=== PATIENT | female | born 1950 | race Caucasian/White ===

== ENCOUNTER 2016-10-20 19:11 | Emergency (ER) | payer MEDICAID, OTHER ==
[~2016-10-20] VITALS: Ht 167.6 cm; Wt 54.4 kg
[~2016-10-20 19:11] MED LIST: /DIVA12TA; /DIVA50TA PO; /ESCI10TA; /HALO5TAB PO; /OLAN5ZYD OR; ALBU17IN INH; ALBUTEROL INH; ASA OR; ASPI1TAB PO; ASPI325T PO; ASPI81TA45 OR; ASPI81TA85 PO; ASTE137S; AUGMENTIN 875MG PO; BENZ1TA PO; BENZ2TA PO; CHLO25CA PO; CLAR10CA3 PO; CLIN300C PO; CLON0.5T PO; COGE1INJ PO; COGENTIN; Cogentin PO; DEPA250T2 PO; DEPA250T3; DEPA250T32 PO; DEPA500T OR; DEPAKOTE; Depakote PO; HALD100I2 IM; HALDOL; HALDOL PO; HALO10AM IM; HALO10TA PO; HALO10TA4; HALO10TA4 OR; HALO20TA; HALO20TA IM; Haldol PO; INVE3TAB2 OR; KLON0.5T PO; LEXA1TAB PO; LEXAPRO; MIRT15TA3 PO; MONT10TA2 PO; NIAC10TAB PO; PERP4TA PO; PRAZ1CAP PO; PROVENTIL INH; SERO1TAB PO; SERT-141 PO; SING10TA31; SING10TA31 OR; SITA50TAB PO; TRAZ50TA2 PO; TRAZ50TA4 PO; ZOLO50TA PO; ZYPR10TA PO; [UNRECOGNIZED DRUG - OTHER]; astelin; cogentin PO; haldol decanoate IM; januvia PO
[2016-10-21] MEDS ORDERED: BENZTROPINE 1 MG TAB PO ONE (09:45)
[2016-10-21] MEDS ORDERED: clonazePAM 0.5 MG TAB As Ordered ONE (10:46)
--- NOTE | 2016-10-21 13:40 | EDDOCDS ---
Physician Documentation [facility] Name: Samira Varela Age: 65 yrs Sex: Female : 1950 Arrival Date: 10/20/2016 Time: 19:11 Bed OBSERVATION Private MD: Disposition: 10/21/16 11:57 Transfer ordered to [facility]. Diagnosis is Schizophrenia. - Reason for transfer: Higher level of care. - Accepting physician is Dr. Jackson. - Condition is Stable. - Problem is an acute exacerbation. - Symptoms are unchanged. Historical: - Allergies: no known allergies; - Home Meds: 1. Invega Sustenna 234 mg/1.5 mL intramuscular syrg 1.5 mL once moly (Last dose: Unknown) 2. Klonopin 0.5 mg Oral tab 1-2 tabs qd PRN (Last dose: Unknown) 3. Sertraline 50 mg daily (Last dose: Unknown) 4. Cogentin 1 mg Oral tab 1 tab 2 times per day (Last dose: Unknown) - PMHx: Hernia; Bipolar disorder; Migraines; COPD; Hypercholesterolemia; Depression; Schizophrenia; - PSHx: Exploratory lap; Appendectomy; Hernia repair; - Social history: Smoking status: Patient uses tobacco products, light tobacco smoker. No barriers to communication noted, The patient speaks fluent Tunisian. - Family history: Not pertinent. - : The pt / caregiver states he / she is not on anticoagulants. Home medication list is obtained from the patient, the facility MAR. - Exposure Risk Screening:: None identified. Vital Signs: 10/20 19:23 BP 133 / 79; Pulse 76; Resp 20; Temp 97.8(O); Pulse Ox 96% on R/A; Weight 54.43 kg / rw1 120 lbs (R); Height 5 ft. 6 in. (167.64 cm) (R); Pain 0/10; 10/21 06:29 BP 133 / 70; Pulse 85; Resp 20; Temp 97.7(TE); Pulse Ox 95% on R/A; Pain 0/10; rw1 11:10 BP 119 / 76; Pulse 89; Resp 16; Temp 98; Pulse Ox 98% on R/A; Pain 0/10; bcj 13:35 BP 128 / 77; Pulse 80; Resp 16; Temp 98.2(O); Pulse Ox 95% on R/A; Pain 0/10; bcj 10/20 19:23 Body Mass Index 19.37 (54.43 kg, 167.64 cm) rw1 MDM: 10/20 19:29 Consult PFS/PSA/Socail Worker: Cleared medically for eval ordered. cs11 20:36 Consult PFS/PSA/Socail Worker: Cleared medically for eval complete. jfb 20:45 Financial registration complete. gjb 20:50 [facility] Payment Agreement was scanned into [employer] and attached to record. gjb 10/21 04:04 REGULAR DIET PLASTIC WILSON+DIET ordered. EDMS 09:17 Benztropine 1 mg PO once ordered. bcj 10:54 clonazePAM 1 mg PO once ordered. bcj 11:21 REGULAR DIET PLASTIC WILSON+DIET ordered. EDMS 11:52 [facility] Legal paperwork was scanned into [employer] and attached to record. jl 13:37 [facility] Legal paperwork was scanned into [employer] and attached to record. jl Administered Medications: 10:09 Drug: Benztropine 1 mg [benztropine 1 mg tablet (1 tabs)] Route: PO; bcj 13:39 Not Given (Patient Refused): clonazePAM 1 mg PO once jo3 Signatures: Dispatcher [employer] EDIL Izzy Mora MD MD sdChinmay Jones, RN RN Tristan Méndez, DIEGO PSA Bia Antonio,RN RN jo3 Chepe Silva LPN LPN rw1 Kalpesh Alexandra, RN RN Shalonda Rai PSA PSA Avery Finney DO DO cs11 Kalpesh Montana,RN RN Ruthie Welch The chart was reviewed and I authenticate all verbal orders and agree with the evaluation and treatment provided.Corrections: (The following items were deleted from the chart) 08:10/20 19:22 Home Meds: aspirin 81 mg oral TbEC; mgs ml6 10/21 08:10/20 19:22 PMHx: Unable to obtain; mgs ml6 10/21 08:10/20 19:22 PSHx: none; mgs ml6 Attachments: 20:50 [facility] Payment Agreement gjb MTDD
--- NOTE | 2016-10-21 13:41 | EDDOCDS ---
Nurse's Notes [facility] Name: Samira Varela Age: 65 yrs Sex: Female : 1950 Arrival Date: 10/20/2016 Time: 19:11 Bed OBSERVATION Private MD: Diagnosis: Schizophrenia Presentation: 10/20 19:17 Presenting complaint: Report from [facility] states that the patient called mgs the police today because she has been "battling spirits" and "fought the devil" at her home. Suicide/Homicide risk assessment- the patient denies having any suicidal and/or homicidal ideations and does not present with any other emotional, behavioral or mental health complaints. Status: Patient is not a human service coordinator or dependent. Transition of care: patient was received from [facility]. 19:17 Acuity: FABIANO Level 3 mgs 19:17 Method Of Arrival: Ambulance mgs 19:24 Mental Health Triage Level: Level 2:. Mental Health Triage Level: Level 2: Patient mgs called police today after becoming agitated at her apartment. 19:28 Adult Sepsis Screening: Patient has new or worsening altered mentation (1 point). mgs Patient's respiratory rate is less than 22. Systolic blood pressure is greater than 100. Patient has a qSOFA score of 1- Negative Sepsis Screen. Triage Assessment: 19:22 General: Appears in no apparent distress, Behavior is cooperative. Pain: Denies pain. mgs Neurological: Level of Consciousness is awake, alert, Oriented to person, place, time. Cardiovascular: Capillary refill < 3 seconds Heart tones S1 S2 present. Respiratory: Airway is patent Respiratory effort is even, unlabored, Respiratory pattern is regular, symmetrical. Derm: Skin Patient has multiple lacerations in various stages of healing noted to bilateral hands. Historical: - Allergies: no known allergies; - Home Meds: 1. Invega Sustenna 234 mg/1.5 mL intramuscular syrg 1.5 mL once moly (Last dose: Unknown) 2. Klonopin 0.5 mg Oral tab 1-2 tabs qd PRN (Last dose: Unknown) 3. Sertraline 50 mg daily (Last dose: Unknown) 4. Cogentin 1 mg Oral tab 1 tab 2 times per day (Last dose: Unknown) - PMHx: Hernia; Bipolar disorder; Migraines; COPD; Hypercholesterolemia; Depression; Schizophrenia; - PSHx: Exploratory lap; Appendectomy; Hernia repair; - Social history: Smoking status: Patient uses tobacco products, light tobacco smoker. No barriers to communication noted, The patient speaks fluent Sami. - Family history: Not pertinent. - : The pt / caregiver states he / she is not on anticoagulants. Home medication list is obtained from the patient, the facility MAR. - Exposure Risk Screening:: None identified. Screenin:26 Screening information is obtained from the patient. Fall risk: At risk due to prior mgs history of falls. Assistance ADL's: requires no assistance with activities of daily living. Abuse/DV Screen: The patient / caregiver reports he/she is: not in a situation that causes fear, pain or injury. Nutritional screening: No deficits noted. Advance Directives: Currently, there is no health care proxy. There is no active DNR order. home support is inadequate. Assessment: 19:28 General: Please see triage assessment. mgs 21:06 General: Appears in no apparent distress, comfortable, Behavior is cooperative, rw1 pleasant. Pain: Denies pain. Neurological: Level of Consciousness is awake, obeys commands, Oriented to person, place, time. Respiratory: Airway is patent Respiratory effort is even, unlabored. Derm: Skin is pink, warm & dry. normal. 22:04 Reassessment: Patient appears in no apparent distress at this time. awake resting on rw1 stretcher, safety maintained will monitor.. 23:01 General: Appears in no apparent distress, comfortable, Behavior is quiet, resting rw1 quietly on stretcher with eyes closed, safety maintained. Respiratory: Airway is patent Respiratory effort is even, unlabored. Derm: Skin is pink, warm & dry. normal. 10/21 00:00 Reassessment: Patient appears in no apparent distress at this time. resting quietly on rw1 stretcher with eyes closed, safety maintained will monitor.. 01:00 Reassessment: Patient appears in no apparent distress at this time. resting quietly on rw1 stretcher with eyes closed, safety maintained will monitor.. 02:00 General: Appears in no apparent distress, comfortable, Behavior is resting quietly on rw1 stretcher with eyes closed, safety maintained . Respiratory: Airway is patent Respiratory effort is even, unlabored. Derm: Skin is pink, warm & dry. normal. 03:00 Reassessment: Patient appears in no apparent distress at this time. resting quietly on rw1 stretcher, safety maintained will monitor.. 03:59 Reassessment: Patient appears in no apparent distress at this time. resting quietly on rw1 stretcher with eyes closed, safety maintained will monitor.. 05:00 Reassessment: Patient appears in no apparent distress at this time. resting quietly on rw1 stretcher with eyes closed, safety maintained will monitor.. 06:11 General: Appears in no apparent distress, Pt awake, talking to herself incoherently. js15 Neurological:. Respiratory: Airway is patent Respiratory effort is even, unlabored, Respiratory pattern is regular, symmetrical. Derm: Skin is pink, warm & dry. 06:29 General: Appears distressed, Behavior is cooperative, restless, didn't sleep much rw1 occasional outbursts all night. Pain: Denies pain. Neurological: Level of Consciousness is awake, obeys commands, Oriented to person, place. Respiratory: Airway is patent Respiratory effort is even, unlabored. Derm: Skin is pink, warm & dry. normal. 07:32 General: Appears in no apparent distress, Behavior is appropriate for age, cooperative. ml6 Pain: Denies pain. Neurological: No deficits noted. Cardiovascular: No deficits noted. Capillary refill < 3 seconds is brisk in bilateral fingers toes Heart tones S1 S2 present. Respiratory: No deficits noted. Airway is patent Respiratory effort is even, unlabored, Respiratory pattern is regular, symmetrical, Breath sounds are clear bilaterally. GI: No deficits noted. 09:16 General: Appears in no apparent distress, comfortable, Behavior is cooperative. Pain: bcj Denies pain. Derm: Skin is pink, warm & dry. 10:28 General: Appears in no apparent distress, comfortable, Behavior is cooperative. Pain: bcj Denies pain. Derm: Skin is pink, warm & dry. 11:10 General: Appears comfortable, Behavior is cooperative. Pain: Denies pain. Derm: Skin is bcj pink, warm & dry. 13:24 General: Appears in no apparent distress, comfortable, Behavior is cooperative. Pain: bcj Denies pain. Derm: Skin is pink, warm & dry. Mental Health Eval: 10/20 20:37 Status: The patient is not a human service coordinator or dependent. [facility] jfb Behavioral Health: The patient is not an established patient of [facility] Behavioral Health. Referral Information: Evaluation referral is generated by [facility] . The patient was referred for evaluation because PT called 911 stating she needed to come to [facility] as she is seeing spirits and has fought the devil. EMS took her to [facility] for medical clearance as that is her closest ER.. Subjective: The patients chief complaint is PT states there are spirits living in her building and they may be old people. She states that some are mean but she has no idea what they want. She goes on to say that she has fought the devil because he is in her building too but could no longer handle it so she called for help. PT has had 12 admissions since 2008 with 11 to [facility] and 1 to [facility] due to [facility] being at capacity for similar presentations. PT denies that she is receiving any outpatient care currently and states "I take a B12 gummy vitamin" PT denies SI/HI or hallucinations but she states she clearly can see the spirits and the devil and she no longer feels she can platt them alone.. Delusions are paranoid, Patient's mood is appropriate. Visual Hallucinations are are reported by PT. Mental Health history: schizophrenia, sleep disturbance, Current Outpatient Mental Health Services: None. Current living environment is The patient currently lives alone. Patient presents to Emergency Department with the following symptoms within the past 2 weeks: agitation, anxiety, delusions of paranoid . visual hallucinations, stated by patient sleep disturbance - erratic. Substance abuse: Patient uses marijuana "I do it to sleep" Patient uses tobacco 1 pack Frequency daily. Mental status exam: Patients appearance is disheveled thin, Patient's behavior is cooperative, Speech is normal. Affect is appropriate. Mood is appropriate. Visual Hallucinations are are reported by PT. Appetite is normal. Memory is fair. Energy level is normal. Content of thought is paranoid. feels there are spirits and the devil in her building and that she needs to do platt with them delusional. spirits and the devil Thought process is loose. Cognitive level is Oriented to person, place, time. Patient's insight is absent. Judgement is fair. Rapport with interviewer is good. Suicidal Ideation is not present. Homicidal ideation is not present. Disposition: Medically cleared for disposition by Avery Kemp DO Psychiatric Consult is performed by phone with Dr Brian Garcia MD. [facility] Admission Criteria: The patient displays symptoms of severe psychiatric disorder resulting in disordered behavior and significant interference with his / her ability to maintain self care. Hallucinations. Delusions. The patient requires continuous observation and/or control to protect self, others or property. The patient's care requires a multi-modal treatment plan under close supervision and coordination due to the complexity and severity of the patient's symptoms. The patient requires administration and monitoring of psychoactive medications by skilled medical providers due to the side effects of the psychoactive medications or significant dosage adjustments. Legal Status: Patient's legal status will be [facility] admission: . [place] Safe Act: [place] Safe Act is not applicable because the patient does not display any suicidal or homicidal ideations and does not pose a risk to self or others. DSM-V Differential Diagnosis: Schizophrenia (F20.9). Narrative: PT is aware that she will need to be transferred for care due to [facility] being at capacity. 22:11 Narrative: Chart has been faxed to Herlinda Stanley for morning review. [facility] 10/21 06:17 Narrative: PT has been responding to internal stimuli for most of the night and at [facility] times she becomes agitated yelling but quickly quiets. She continues to be very pleasant when spoken to. Vital Signs: 10/20 19:23 BP 133 / 79; Pulse 76; Resp 20; Temp 97.8(O); Pulse Ox 96% on R/A; Weight 54.43 kg (R); rw1 Height 5 ft. 6 in. (167.64 cm) (R); Pain 0/10; 10/21 06:29 BP 133 / 70; Pulse 85; Resp 20; Temp 97.7(TE); Pulse Ox 95% on R/A; Pain 0/10; rw1 11:10 BP 119 / 76; Pulse 89; Resp 16; Temp 98; Pulse Ox 98% on R/A; Pain 0/10; bcj 13:35 BP 128 / 77; Pulse 80; Resp 16; Temp 98.2(O); Pulse Ox 95% on R/A; Pain 0/10; bcj 10/20 19:23 Body Mass Index 19.37 (54.43 kg, 167.64 cm) rw1 Vitals: 10/20 19:23 Log In Time N/A - ambulance arrival. [facility] ED Course: 19:16 Patient visited by Carolyn Jones, Cook Tortilla. ml3 19:16 Patient moved to Waiting ml3 19:16 Patient moved to U3 ml3 19:17 Kalpesh Montana,LILLIANA is Primary Nurse. mgs 19:19 Triage Initiated mgs 19:28 Avery Kemp DO is Attending Physician. cs11 19:28 Patient visited by Avery Kemp DO. cs11 19:28 Patient visited by Jeevan Chung. tr 19:29 Patient visited by Kalpesh Montana,LILLIANA. mgs 19:58 Patient visited by Jeevan Chung. tr 20:16 Patient visited by Jeevan Chung. tr 20:23 Patient moved to OBSERVATION cs11 20:32 Patient visited by Jeevan Chung. tr 20:46 Patient visited by Jeevan Chung. tr 20:50 [facility] Payment Agreement was scanned into [employer] and attached to record. gjb 21:01 Patient visited by Jeevan Chung. tr 21:15 Patient visited by Jeevan Chung. tr 21:47 Patient visited by Jeevan Chung. tr 22:17 Patient visited by Jeevan Chung. tr 22:30 Patient visited by Jeevan Chung. tr 23:00 Patient visited by Jeevan Chung. tr 23:32 Patient visited by Jeevan Chung. tr 23:43 Patient visited by Jeevan Chung. tr 23:59 Patient visited by Jeevan Chung. tr 10/21 00:30 Patient visited by Jeevan Chung. tr 00:47 Patient visited by Chepe Silva LPN. rw1 00:58 Patient visited by Jeevan Chung. tr 01:18 Patient visited by Jeevan Chung. tr 01:29 Patient visited by Jeevan Chung. tr 01:44 Patient visited by Jeevan Chung. tr 02:01 Patient visited by Jeevan Chung. tr 02:01 Patient visited by Chepe Silva LPN. rw1 02:19 Patient visited by Jeevan Chung. tr 02:31 Patient visited by Jeevan Chung. tr 02:45 Patient visited by Jeevan Chung. tr 03:04 Patient visited by ChungJeevan. tr 03:29 Patient visited by ChungJeevan. tr 03:47 Patient visited by ChungJeevan. tr 04:00 Patient visited by Jeevan Chung. tr 04:12 Patient visited by Jeevan Chung. tr 04:31 Patient visited by Jeevan Chung. tr 04:46 Patient visited by ChungJeevan. tr 05:40 Patient visited by ChungJeevan. tr 05:49 Patient visited by ChungJeevan. tr 06:03 Patient visited by Jeevan Chung. tr 06:19 Patient visited by Jeevan Chung. tr 06:29 Patient visited by Jeevan Chung. tr 06:50 Patient visited by Jeevan Chung. tr 06:54 Attending Physician role handed off by Avery Kemp DO sd1 06:54 Izzy Mora MD is Attending Physician. sd1 07:14 Patient visited by Jacob Huynh. dpm 07:26 Patient visited by Jacob Huynh. dpm 07:32 No IV's were initiated during this patient's visit. No procedures done that require ml6 assistance. 07:33 The patient / caregiver is instructed regarding the plan of care and ED course. ml6 07:37 Patient visited by Jacob Huynh. dpm 07:52 Patient visited by Jacob Huynh. dpm 08:12 Patient visited by Chinmay Crump RN. bcj 08:25 Patient visited by Jacob Huynh. dpm 08:39 Patient visited by Jacob Huynh. dpm 08:56 Patient visited by Jacob Huynh. dpm 09:12 Patient visited by Jacob Huynh. dpm 09:16 No apparent distress. Resting quietly. Awaiting disposition. bcj 09:16 Patient has correct armband on for positive identification. Placed in gown. Placed in [facility] psych safe attire. Bed in low position. Call light in reach. Security observing. 09:16 Labs drawn. (by ED staff). Sent per order to lab. Urine collected. Clean catch [facility] specimen. Urine specimen sent to lab. 09:18 Patient visited by Chinmay Crump RN. bcj 09:28 Patient visited by Jacob Huynh. dpm 09:44 Patient visited by Jacob Huynh. dpm 10:00 Patient visited by Jacob Huynh. dpm 10:16 Patient visited by Jacob Huynh. dpm 10:28 Appears to be sleeping. Awaiting disposition. bcj 10:29 Patient visited by Chinmay Crump RN. bcj 10:44 Patient visited by Jacob Huynh. dpm 11:01 Patient visited by Jacob Huynh. dpm 11:10 No apparent distress. Resting quietly. Awaiting disposition. bcj 11:10 Security observing. bcj 11:12 Patient visited by Chinmay Crump RN. bcj 11:23 Patient visited by Jacob Huynh. dpm 11:39 Patient visited by Jacob Huynh. dpm 11:46 Patient visited by Jacob Huynh. dpm 11:52 [facility] Legal paperwork was scanned into [employer] and attached to record. jl 11:58 Patient visited by Jacob Huynh. dpm 12:17 Patient visited by Jacob Huynh. dpm 12:31 Patient visited by Jacob Huynh. dpm 12:51 Patient visited by Jacob Huynh. dpm 13:37 [facility] Legal paperwork was scanned into [employer] and attached to record. jl 13:39 Patient visited by Bia Salas RN. jo3 Administered Medications: 10:09 Drug: Benztropine 1 mg [benztropine 1 mg tablet (1 tabs)] Route: PO; bcj 13:39 Not Given (Patient Refused): clonazePAM 1 mg PO once jo3 Attachments: 13:37 E Legal paperwork jl Order Results: There are currently no results for this order. Outcome: 11:57 ER care complete, transfer ordered by Provider. sd1 13:35 Discharge Assessment: patient administered narcotics - no. The following High Risk [facility] Discharge criteria are identified: None. Transferred to [facility]. by EMS ground [facility] ambulance report to accompanying personnel Kole Tamez EMT Zion Guerrero EMT. Condition: stable. No special radiology studies were completed. Property :Personal belongings accompany Pt. 13:39 Patient left the ED. jo3 Signatures: Izzy Mora MD MD sd1 Chinmay Crump, RN RN bcTristan Méndez, PSA PSA jl Chung, Jeevan tr Karen, MyrnaBernarda, [employer] Unit ml3 Bia Salas,LILLIANA RN jo3 Chepe Silva,OFFSET PROOF PRESS OPERATOR OFFSET PROOF PRESS OPERATOR rw1 Kalpesh Alexandra, RN RN ml6 Shalonda Jacobson, PSA PSA jfb Jacob Huynh dpm Avery Kemp, DO DO cs11 Kalpesh Montana,RN RN mgs Francesca Jones,RN RN js15 Ruthie Goncalves joel Corrections: (The following items were deleted from the chart) 10/20 19: 19:17 Mental Health Triage Level: Level 1- Pt displays no suicidal or homicidal mgs ideations and does not appear to be a danger to self or others. mgs 19:17 Mental Health Triage Level: Level 1- Pt displays no suicidal or homicidal mgs ideations and does not appear to be a danger to self or others. mgs 10/21 19:22 Home Meds: aspirin 81 mg oral TbEC; mgs ml6 10/21 19:22 PMHx: Unable to obtain; mgs ml6 10/21 19:22 PSHx: none; mgs ml6 MTDD
--- NOTE | 2016-10-23 14:40 | EDDOCDS ---
Physician Documentation [facility] Name: Samira Varela Age: 65 yrs Sex: Female : 1950 Arrival Date: 10/20/2016 Time: 19:11 Bed OBSERVATION Private MD: Disposition: 10/21/16 11:57 Transfer ordered to [facility]. Diagnosis is Schizophrenia. - Reason for transfer: Higher level of care. - Accepting physician is Dr. Jackson. - Condition is Stable. - Problem is an acute exacerbation. - Symptoms are unchanged. Historical: - Allergies: no known allergies; - Home Meds: 1. Invega Sustenna 234 mg/1.5 mL intramuscular syrg 1.5 mL once moly (Last dose: Unknown) 2. Klonopin 0.5 mg Oral tab 1-2 tabs qd PRN (Last dose: Unknown) 3. Sertraline 50 mg daily (Last dose: Unknown) 4. Cogentin 1 mg Oral tab 1 tab 2 times per day (Last dose: Unknown) - PMHx: Hernia; Bipolar disorder; Migraines; COPD; Hypercholesterolemia; Depression; Schizophrenia; - PSHx: Exploratory lap; Appendectomy; Hernia repair; - Social history: Smoking status: Patient uses tobacco products, light tobacco smoker. No barriers to communication noted, The patient speaks fluent Cook Islander. - Family history: Not pertinent. - : The pt / caregiver states he / she is not on anticoagulants. Home medication list is obtained from the patient, the facility MAR. - Exposure Risk Screening:: None identified. Vital Signs: 10/20 19:23 BP 133 / 79; Pulse 76; Resp 20; Temp 97.8(O); Pulse Ox 96% on R/A; Weight 54.43 kg / rw1 120 lbs (R); Height 5 ft. 6 in. (167.64 cm) (R); Pain 0/10; 10/21 06:29 BP 133 / 70; Pulse 85; Resp 20; Temp 97.7(TE); Pulse Ox 95% on R/A; Pain 0/10; rw1 11:10 BP 119 / 76; Pulse 89; Resp 16; Temp 98; Pulse Ox 98% on R/A; Pain 0/10; bcj 13:35 BP 128 / 77; Pulse 80; Resp 16; Temp 98.2(O); Pulse Ox 95% on R/A; Pain 0/10; bcj 10/20 19:23 Body Mass Index 19.37 (54.43 kg, 167.64 cm) rw1 MDM: 10/20 19:29 Consult PFS/PSA/Socail Worker: Cleared medically for eval ordered. cs11 20:36 Consult PFS/PSA/Socail Worker: Cleared medically for eval complete. jfb 20:45 Financial registration complete. gjb 20:50 [facility] Payment Agreement was scanned into [employer] and attached to record. gjb 10/21 04:04 REGULAR DIET PLASTIC WILSON+DIET ordered. EDMS 09:17 Benztropine 1 mg PO once ordered. bcj 10:54 clonazePAM 1 mg PO once ordered. bcj 11:21 REGULAR DIET PLASTIC WILSON+DIET ordered. EDMS 11:52 [facility] Legal paperwork was scanned into [employer] and attached to record. jl 13:37 [facility] Legal paperwork was scanned into [employer] and attached to record. jl 14:00 T-Sheet-- Draft Copy was scanned into [employer] and attached to record. klr Administered Medications: 10:09 Drug: Benztropine 1 mg [benztropine 1 mg tablet (1 tabs)] Route: PO; [facility] 13:39 Not Given (Patient Refused): clonazePAM 1 mg PO once jo3 Signatures: Dispatcher [employer] EDCA Izzy Mora MD MD sdChinmay Jones, RN RN bcTristan Méndez, PSA PSA Bia AntonioRN RN jo3 Chepe Silva LPN LPN rw1 Kalpesh Alexandra, RN RN ml6 Shalonda Jacobson PSA PSA b Avery Kemp DO DO cs11 Kalpesh Montana,RN RN s Ruthie Goncalves Kathie klr The chart was reviewed and I authenticate all verbal orders and agree with the evaluation and treatment provided.Corrections: (The following items were deleted from the chart) 08:34 10/20 19:22 Home Meds: aspirin 81 mg oral TbEC; mgs ml6 10/21 08:34 10/20 19:22 PMHx: Unable to obtain; mgs ml6 10/21 08:34 02/04 19:22 PSHx: none; mgs ml6 Attachments: 20:50 [facility] Payment Agreement [facility] 14:00 T-Sheet-- Draft Copy klr Chart Complete MTDD
--- NOTE | 2016-10-23 14:40 | EDDOCDS ---
Nurse's Notes [facility] Name: Samira Varela Age: 65 yrs Sex: Female : 1950 Arrival Date: 10/20/2016 Time: 19:11 Bed OBSERVATION Private MD: Diagnosis: Schizophrenia Presentation: 10/20 19:17 Presenting complaint: Report from [facility] states that the patient called mgs the police today because she has been "battling spirits" and "fought the devil" at her home. Suicide/Homicide risk assessment- the patient denies having any suicidal and/or homicidal ideations and does not present with any other emotional, behavioral or mental health complaints. Status: Patient is not a mountain services manager or dependent. Transition of care: patient was received from [facility]. 19:17 Acuity: FABIANO Level 3 mgs 19:17 Method Of Arrival: Ambulance mgs 19:24 Mental Health Triage Level: Level 2:. Mental Health Triage Level: Level 2: Patient mgs called police today after becoming agitated at her apartment. 19:28 Adult Sepsis Screening: Patient has new or worsening altered mentation (1 point). mgs Patient's respiratory rate is less than 22. Systolic blood pressure is greater than 100. Patient has a qSOFA score of 1- Negative Sepsis Screen. Triage Assessment: 19:22 General: Appears in no apparent distress, Behavior is cooperative. Pain: Denies pain. mgs Neurological: Level of Consciousness is awake, alert, Oriented to person, place, time. Cardiovascular: Capillary refill < 3 seconds Heart tones S1 S2 present. Respiratory: Airway is patent Respiratory effort is even, unlabored, Respiratory pattern is regular, symmetrical. Derm: Skin Patient has multiple lacerations in various stages of healing noted to bilateral hands. Historical: - Allergies: no known allergies; - Home Meds: 1. Invega Sustenna 234 mg/1.5 mL intramuscular syrg 1.5 mL once moly (Last dose: Unknown) 2. Klonopin 0.5 mg Oral tab 1-2 tabs qd PRN (Last dose: Unknown) 3. Sertraline 50 mg daily (Last dose: Unknown) 4. Cogentin 1 mg Oral tab 1 tab 2 times per day (Last dose: Unknown) - PMHx: Hernia; Bipolar disorder; Migraines; COPD; Hypercholesterolemia; Depression; Schizophrenia; - PSHx: Exploratory lap; Appendectomy; Hernia repair; - Social history: Smoking status: Patient uses tobacco products, light tobacco smoker. No barriers to communication noted, The patient speaks fluent Ukrainian. - Family history: Not pertinent. - : The pt / caregiver states he / she is not on anticoagulants. Home medication list is obtained from the patient, the facility MAR. - Exposure Risk Screening:: None identified. Screenin:26 Screening information is obtained from the patient. Fall risk: At risk due to prior mgs history of falls. Assistance ADL's: requires no assistance with activities of daily living. Abuse/DV Screen: The patient / caregiver reports he/she is: not in a situation that causes fear, pain or injury. Nutritional screening: No deficits noted. Advance Directives: Currently, there is no health care proxy. There is no active DNR order. home support is inadequate. Assessment: 19:28 General: Please see triage assessment. mgs 21:06 General: Appears in no apparent distress, comfortable, Behavior is cooperative, rw1 pleasant. Pain: Denies pain. Neurological: Level of Consciousness is awake, obeys commands, Oriented to person, place, time. Respiratory: Airway is patent Respiratory effort is even, unlabored. Derm: Skin is pink, warm & dry. normal. 22:04 Reassessment: Patient appears in no apparent distress at this time. awake resting on rw1 stretcher, safety maintained will monitor.. 23:01 General: Appears in no apparent distress, comfortable, Behavior is quiet, resting rw1 quietly on stretcher with eyes closed, safety maintained. Respiratory: Airway is patent Respiratory effort is even, unlabored. Derm: Skin is pink, warm & dry. normal. 10/21 00:00 Reassessment: Patient appears in no apparent distress at this time. resting quietly on rw1 stretcher with eyes closed, safety maintained will monitor.. 01:00 Reassessment: Patient appears in no apparent distress at this time. resting quietly on rw1 stretcher with eyes closed, safety maintained will monitor.. 02:00 General: Appears in no apparent distress, comfortable, Behavior is resting quietly on rw1 stretcher with eyes closed, safety maintained . Respiratory: Airway is patent Respiratory effort is even, unlabored. Derm: Skin is pink, warm & dry. normal. 03:00 Reassessment: Patient appears in no apparent distress at this time. resting quietly on rw1 stretcher, safety maintained will monitor.. 03:59 Reassessment: Patient appears in no apparent distress at this time. resting quietly on rw1 stretcher with eyes closed, safety maintained will monitor.. 05:00 Reassessment: Patient appears in no apparent distress at this time. resting quietly on rw1 stretcher with eyes closed, safety maintained will monitor.. 06:11 General: Appears in no apparent distress, Pt awake, talking to herself incoherently. js15 Neurological:. Respiratory: Airway is patent Respiratory effort is even, unlabored, Respiratory pattern is regular, symmetrical. Derm: Skin is pink, warm & dry. 06:29 General: Appears distressed, Behavior is cooperative, restless, didn't sleep much rw1 occasional outbursts all night. Pain: Denies pain. Neurological: Level of Consciousness is awake, obeys commands, Oriented to person, place. Respiratory: Airway is patent Respiratory effort is even, unlabored. Derm: Skin is pink, warm & dry. normal. 07:32 General: Appears in no apparent distress, Behavior is appropriate for age, cooperative. ml6 Pain: Denies pain. Neurological: No deficits noted. Cardiovascular: No deficits noted. Capillary refill < 3 seconds is brisk in bilateral fingers toes Heart tones S1 S2 present. Respiratory: No deficits noted. Airway is patent Respiratory effort is even, unlabored, Respiratory pattern is regular, symmetrical, Breath sounds are clear bilaterally. GI: No deficits noted. 09:16 General: Appears in no apparent distress, comfortable, Behavior is cooperative. Pain: bcj Denies pain. Derm: Skin is pink, warm & dry. 10:28 General: Appears in no apparent distress, comfortable, Behavior is cooperative. Pain: bcj Denies pain. Derm: Skin is pink, warm & dry. 11:10 General: Appears comfortable, Behavior is cooperative. Pain: Denies pain. Derm: Skin is bcj pink, warm & dry. 13:24 General: Appears in no apparent distress, comfortable, Behavior is cooperative. Pain: bcj Denies pain. Derm: Skin is pink, warm & dry. Mental Health Eval: 10/20 20:37 Status: The patient is not a mountain services manager or dependent. [facility] jfb Behavioral Health: The patient is not an established patient of [facility] Behavioral Health. Referral Information: Evaluation referral is generated by [facility] . The patient was referred for evaluation because PT called 911 stating she needed to come to [facility] as she is seeing spirits and has fought the devil. EMS took her to [facility] for medical clearance as that is her closest ER.. Subjective: The patients chief complaint is PT states there are spirits living in her building and they may be old people. She states that some are mean but she has no idea what they want. She goes on to say that she has fought the devil because he is in her building too but could no longer handle it so she called for help. PT has had 12 admissions since 2008 with 11 to [facility] and 1 to [facility] due to [facility] being at capacity for similar presentations. PT denies that she is receiving any outpatient care currently and states "I take a B12 gummy vitamin" PT denies SI/HI or hallucinations but she states she clearly can see the spirits and the devil and she no longer feels she can platt them alone.. Delusions are paranoid, Patient's mood is appropriate. Visual Hallucinations are are reported by PT. Mental Health history: schizophrenia, sleep disturbance, Current Outpatient Mental Health Services: None. Current living environment is The patient currently lives alone. Patient presents to Emergency Department with the following symptoms within the past 2 weeks: agitation, anxiety, delusions of paranoid . visual hallucinations, stated by patient sleep disturbance - erratic. Substance abuse: Patient uses marijuana "I do it to sleep" Patient uses tobacco 1 pack Frequency daily. Mental status exam: Patients appearance is disheveled thin, Patient's behavior is cooperative, Speech is normal. Affect is appropriate. Mood is appropriate. Visual Hallucinations are are reported by PT. Appetite is normal. Memory is fair. Energy level is normal. Content of thought is paranoid. feels there are spirits and the devil in her building and that she needs to do platt with them delusional. spirits and the devil Thought process is loose. Cognitive level is Oriented to person, place, time. Patient's insight is absent. Judgement is fair. Rapport with interviewer is good. Suicidal Ideation is not present. Homicidal ideation is not present. Disposition: Medically cleared for disposition by Avery Kemp DO Psychiatric Consult is performed by phone with Dr Brian Garcia MD. [facility] Admission Criteria: The patient displays symptoms of severe psychiatric disorder resulting in disordered behavior and significant interference with his / her ability to maintain self care. Hallucinations. Delusions. The patient requires continuous observation and/or control to protect self, others or property. The patient's care requires a multi-modal treatment plan under close supervision and coordination due to the complexity and severity of the patient's symptoms. The patient requires administration and monitoring of psychoactive medications by skilled medical providers due to the side effects of the psychoactive medications or significant dosage adjustments. Legal Status: Patient's legal status will be [facility] admission: 37. [place] Safe [place] Safe [place] is [place] because the patient does not display any suicidal or homicidal ideations and does not pose a risk to self or others. DSM-V Differential Diagnosis: Schizophrenia (F20.9). Narrative: PT is aware that she will need to be transferred for care due to [facility] being at capacity. 22:11 Narrative: Chart has been faxed to Herlinda Stanley for morning review. [facility] 10/21 06:17 Narrative: PT has been responding to internal stimuli for most of the night and at [facility] times she becomes agitated yelling but quickly quiets. She continues to be very pleasant when spoken to. 15:41 Insurance Pre-Certification: approved by: approved by Gonzalez at [facility] for 8 days ac (10/21-10/28/16) with review due on 10/29/16. The reviewer will be Mickie vines [phone] ext. [phone]. Auth. # is [id number]. Vital Signs: 10/20 19:23 BP 133 / 79; Pulse 76; Resp 20; Temp 97.8(O); Pulse Ox 96% on R/A; Weight 54.43 kg (R); rw1 Height 5 ft. 6 in. (167.64 cm) (R); Pain 0/10; 10/21 06:29 BP 133 / 70; Pulse 85; Resp 20; Temp 97.7(TE); Pulse Ox 95% on R/A; Pain 0/10; rw1 11:10 BP 119 / 76; Pulse 89; Resp 16; Temp 98; Pulse Ox 98% on R/A; Pain 0/10; bcj 13:35 BP 128 / 77; Pulse 80; Resp 16; Temp 98.2(O); Pulse Ox 95% on R/A; Pain 0/10; bcj 10/20 19:23 Body Mass Index 19.37 (54.43 kg, 167.64 cm) rw Vitals: 10/20 19:23 Log In Time N/A - ambulance arrival. rw1 ED Course: 19:16 Patient visited by Carolyn Jones Workers Compensation Coordinator. ml3 19:16 Patient moved to Waiting ml3 19:16 Patient moved to [facility] ml3 19:17 Kalpesh Montana,LILLIANA is Primary Nurse. mgs 19:19 Triage Initiated mgs 19:28 Avery Kemp DO is Attending Physician. cs11 19:28 Patient visited by Avery Kemp DO. cs11 19:28 Patient visited by Jeevan Chung. tr 19:29 Patient visited by Kalpesh Montana,LILLIANA. mgs 19:58 Patient visited by Jeevan Chung. tr 20:16 Patient visited by Jeevan Chung. tr 20:23 Patient moved to OBSERVATION cs11 20:32 Patient visited by Jeevan Chung. tr 20:46 Patient visited by Jeevan Chung. tr 20:50 [facility] Payment Agreement was scanned into [employer] and attached to record. gjb 21:01 Patient visited by Jeevan Chung. tr 21:15 Patient visited by Jeevan Chung. tr 21:47 Patient visited by Jeevan Chung. tr 22:17 Patient visited by Tim. Juliet tr 22:30 Patient visited by Jeevan Chung. tr 23:00 Patient visited by Jeevan Chung. tr 23:32 Patient visited by Jeevan Chung. tr 23:43 Patient visited by Jeevan Chung. tr 23:59 Patient visited by Tim. Juliet tr 10/21 00:30 Patient visited by Jeevan Chung. tr 00:47 Patient visited by Chepe Silva LPN. rw1 00:58 Patient visited by Tim. Juliet tr 01:18 Patient visited by Jeevan Chung. tr 01:29 Patient visited by Tim. Juliet tr 01:44 Patient visited by Chung, Jeevan. tr 02:01 Patient visited by Jeevan Chung. tr 02:01 Patient visited by Chepe Silva LPN. rw1 02:19 Patient visited by Jeevan Chung. tr 02:31 Patient visited by Jeevan Chung. tr 02:45 Patient visited by Jeevan Chung. tr 03:04 Patient visited by ChungJeevan. tr 03:29 Patient visited by Jeevan Chung. tr 03:47 Patient visited by Jeevan Chung. tr 04:00 Patient visited by Jeevan Chung. tr 04:12 Patient visited by Jeevan Chung. tr 04:31 Patient visited by Jeevan Chung. tr 04:46 Patient visited by Jeevan Chung. tr 05:40 Patient visited by Jeevan Chung. tr 05:49 Patient visited by Jeevan Chung. tr 06:03 Patient visited by Jeevan Chung. tr 06:19 Patient visited by Jeevan Chung. tr 06:29 Patient visited by Jeevan Chung. tr 06:50 Patient visited by Jeevan Chung. tr 06:54 Attending Physician role handed off by Avery Kemp DO sd1 06:54 Izzy Mora MD is Attending Physician. sd1 07:14 Patient visited by Jacob Huynh. dpm 07:26 Patient visited by Jacob Huynh. dpm 07:32 No IV's were initiated during this patient's visit. No procedures done that require ml6 assistance. 07:33 The patient / caregiver is instructed regarding the plan of care and ED course. ml6 07:37 Patient visited by Jacob Huynh. dpm 07:52 Patient visited by Jacob Huynh. dpm 08:12 Patient visited by Chinmay Crump RN. bcj 08:25 Patient visited by Jacob Huynh. dpm 08:39 Patient visited by Jacob Huynh. dpm 08:56 Patient visited by Jacob Huynh. dpm 09:12 Patient visited by Jacob Huynh. dpm 09:16 No apparent distress. Resting quietly. Awaiting disposition. bcj 09:16 Patient has correct armband on for positive identification. Placed in gown. Placed in [facility] psych safe attire. Bed in low position. Call light in reach. Security observing. 09:16 Labs drawn. (by ED staff). Sent per order to lab. Urine collected. Clean catch [facility] specimen. Urine specimen sent to lab. 09:18 Patient visited by Chinmay Crump RN. bcj 09:28 Patient visited by Jacob Huynh. dpm 09:44 Patient visited by Jacob Huynh. dpm 10:00 Patient visited by Jacob Huynh. dpm 10:16 Patient visited by Jacob Huynh. dpm 10:28 Appears to be sleeping. Awaiting disposition. bcj 10:29 Patient visited by Chinmay Crump RN. bcj 10:44 Patient visited by Jacob Huynh. dpm 11:01 Patient visited by Jacob Huynh. dpm 11:10 No apparent distress. Resting quietly. Awaiting disposition. [facility] 11:10 Security observing. bcj 11:12 Patient visited by Chinmay Crump RN. bcj 11:23 Patient visited by Jacob Huynh. dpm 11:39 Patient visited by Jacob Huynh. dpm 11:46 Patient visited by Jacob Huynh. dpm 11:52 [facility] Legal paperwork was scanned into [employer] and attached to record. jl 11:58 Patient visited by Jacob Huynh. dpm 12:17 Patient visited by Jacob Huynh. dpm 12:31 Patient visited by Jacob Huynh. dpm 12:51 Patient visited by Jacob Huynh. dpm 13:37 [facility] Legal paperwork was scanned into [employer] and attached to record. jl 13:39 Patient visited by Bia Salas RN. jo3 14:00 T-Sheet-- Draft Copy was scanned into [employer] and attached to record. klr Administered Medications: 10:09 Drug: Benztropine 1 mg [benztropine 1 mg tablet (1 tabs)] Route: PO; bcj 13:39 Not Given (Patient Refused): clonazePAM 1 mg PO once jo3 Attachments: 13:37 [facility] Legal paperwork jl Order Results: There are currently no results for this order. Outcome: 11:57 ER care complete, transfer ordered by Provider. sd1 13:35 Discharge Assessment: patient administered narcotics - no. The following High Risk [facility] Discharge criteria are identified: None. Transferred to [facility]. by EMS ground [facility] ambulance report to accompanying personnel Kole Tamez EMT Zion Guerrero EMT. Condition: stable. No special radiology studies were completed. Property :Personal belongings accompany Pt. 13:39 Patient left the ED. jo3 Signatures: Izzy Mora MD MD sd1 Chinmay Crump, RN RN bcj Van Osman, DIEGO PSA Tristan Langford, PSA PSA price Chung, Jeevan tr Karen, KathrineNicolBernarda, Workers Compensation Coordinator Unit ml3 Bia SalasRN RN jo3 Chepe Silva LPN METAL CONTAINER MAKER rw1 Kalpesh Alexandra, RN RN ml6 Shalonda Jacobson, PSA PSA jfJacob Dunne dpAvery Cm, DO cs11 Kalpesh Montana,RN Francesca Perdomo,RN RN jsRuthie Block Kathie klr Corrections: (The following items were deleted from the chart) 10/20 19:26 19:17 Mental Health Triage Level: Level 1- Pt displays no suicidal or homicidal mgs ideations and does not appear to be a danger to self or others. mgs 19: 19:17 Mental Health Triage Level: Level 1- Pt displays no suicidal or homicidal mgs ideations and does not appear to be a danger to self or others. mgs 10/21 07:10/20 19:22 Home Meds: aspirin 81 mg oral TbEC; mgs ml6 10/21 07:10/20 19:22 PMHx: Unable to obtain; mgs ml6 10/21 07:10/20 19:22 PSHx: none; mgs ml6 Chart Complete MTDD
--- NOTE | 2016-10-23 14:40 | EDDOCDS ---
Physician Documentation [facility] Name: Samira Varela Age: 65 yrs Sex: Female : 1950 Arrival Date: 10/20/2016 Time: 19:11 Bed OBSERVATION Private MD: Disposition: 10/21/16 11:57 Transfer ordered to [facility] / [facility]. Diagnosis is Schizophrenia. - Reason for transfer: Higher level of care. - Accepting physician is Dr. Jackson. - Condition is Stable. - Problem is an acute exacerbation. - Symptoms are unchanged. Historical: - Allergies: no known allergies; - Home Meds: 1. Invega Sustenna 234 mg/1.5 mL intramuscular syrg 1.5 mL once moly (Last dose: Unknown) 2. Klonopin 0.5 mg Oral tab 1-2 tabs qd PRN (Last dose: Unknown) 3. Sertraline 50 mg daily (Last dose: Unknown) 4. Cogentin 1 mg Oral tab 1 tab 2 times per day (Last dose: Unknown) - PMHx: Hernia; Bipolar disorder; Migraines; COPD; Hypercholesterolemia; Depression; Schizophrenia; - PSHx: Exploratory lap; Appendectomy; Hernia repair; - Social history: Smoking status: Patient uses tobacco products, light tobacco smoker. No barriers to communication noted, The patient speaks fluent Iranian. - Family history: Not pertinent. - : The pt / caregiver states he / she is not on anticoagulants. Home medication list is obtained from the patient, the facility MAR. - Exposure Risk Screening:: None identified. Vital Signs: 10/20 19:23 BP 133 / 79; Pulse 76; Resp 20; Temp 97.8(O); Pulse Ox 96% on R/A; Weight 54.43 kg / rw1 120 lbs (R); Height 5 ft. 6 in. (167.64 cm) (R); Pain 0/10; 10/21 06:29 BP 133 / 70; Pulse 85; Resp 20; Temp 97.7(TE); Pulse Ox 95% on R/A; Pain 0/10; rw1 11:10 BP 119 / 76; Pulse 89; Resp 16; Temp 98; Pulse Ox 98% on R/A; Pain 0/10; bcj 13:35 BP 128 / 77; Pulse 80; Resp 16; Temp 98.2(O); Pulse Ox 95% on R/A; Pain 0/10; bcj 10/20 19:23 Body Mass Index 19.37 (54.43 kg, 167.64 cm) rw1 MDM: 10/20 19:29 Consult PFS/PSA/Socail Worker: Cleared medically for eval ordered. cs11 20:36 Consult PFS/PSA/Socail Worker: Cleared medically for eval complete. jfb 20:45 Financial registration complete. gjb 20:50 [facility] Payment Agreement was scanned into [email or web address] and attached to record. gjb 10/21 04:04 REGULAR DIET PLASTIC WILSON+DIET ordered. EDMS 09:17 Benztropine 1 mg PO once ordered. bcj 10:54 clonazePAM 1 mg PO once ordered. bcj 11:21 REGULAR DIET PLASTIC WILSON+DIET ordered. EDMS 11:52 [facility] Legal paperwork was scanned into [email or web address] and attached to record. jl 13:37 [facility] Legal paperwork was scanned into [email or web address] and attached to record. jl 14:00 T-Sheet-- Draft Copy was scanned into [email or web address] and attached to record. klr Administered Medications: 10:09 Drug: Benztropine 1 mg [benztropine 1 mg tablet (1 tabs)] Route: PO; [facility] 13:39 Not Given (Patient Refused): clonazePAM 1 mg PO once jo3 Signatures: Dispatcher [employer] EDCA Izzy Mora MD MD sdChinmay Jones, RN RN bcTristan Méndez, PSA PSA Bia AntonioRN RN jo3 Chepe Silva LPN LPN rw1 Kalpesh Alexandra, RN RN ml6 Shalonda Jacobson PSA PSA b Avery Kemp DO DO cs11 Kalpesh Montana,RN RN s Ruthie Goncalves Kathie klr The chart was reviewed and I authenticate all verbal orders and agree with the evaluation and treatment provided.Corrections: (The following items were deleted from the chart) 08:34 10/20 19:22 Home Meds: aspirin 81 mg oral TbEC; mgs ml6 10/21 08:34 10/20 19:22 PMHx: Unable to obtain; mgs ml6 10/21 08:34 02/04 19:22 PSHx: none; mgs ml6 Attachments: 20:50 [facility] Payment Agreement [facility] 14:00 T-Sheet-- Draft Copy klr Chart Complete MTDD
== END 2016-10-21 13:39 ==
LOC: M ED 19:11
DX: F29 Unspecified psychosis not due to a substance or known physiological condition (principal); F31.9 Bipolar disorder, unspecified; F25.9 Schizoaffective disorder, unspecified; G43.909 Migraine, unspecified, not intractable, without status migrainosus; J44.9 Chronic obstructive pulmonary disease, unspecified; E78.00 Pure hypercholesterolemia, unspecified; Z90.89 Acquired absence of other organs; F17.200 Nicotine dependence, unspecified, uncomplicated; Z79.899 Other long term (current) drug therapy

== ENCOUNTER 2016-12-05 20:25 | Inpatient (IN) | payer MEDICAID ==
[~2016-12-05] VITALS: Ht 167.6 cm; Wt 85.3 kg
[~2016-12-05 20:25] MED LIST changes: -SERT-141 PO; +SERT50TA PO
[2016-12-05] MEDS ORDERED: ZYPR20TA3 (20:54)
[2016-12-05] MEDS ORDERED: ASPI81CH (20:54)
[2016-12-05] MEDS ORDERED: BENZ1TA (20:54)
[2016-12-05] MEDS ORDERED: OLAN20TA (20:54)
[2016-12-05] MEDS ORDERED: LASI40TA (20:54)
[2016-12-05] MEDS ORDERED: INVE234I (20:54)
[2016-12-05] MEDS ORDERED: DEPA500T2 (20:54)
[2016-12-06] MEDS ORDERED: MOM 30ML SUSPENSION UDC PO PRN (04:00)
[2016-12-06] MEDS ORDERED: OLAN20TA PO (07:28)
[2016-12-06] MEDS ORDERED: FURO40TA2 PO (07:28)
[2016-12-06] MEDS ORDERED: DEPA500T2 PO (07:28)
[2016-12-06] MEDS ORDERED: ASPI1TAB PO (07:28)
[2016-12-06] MEDS ORDERED: BENZ1TA PO (07:28)
[2016-12-06] MEDS ORDERED: INVE234I IM (07:28)
[2016-12-06 08:33] VITALS: BP 145/73
[2016-12-06] MEDS: NICOTINE 21MG/24HR 1 EA TRANSDERMAL TD SCH (09:00)
--- NOTE | 2016-12-06 12:59 | HPEPDOC ---
Medical History and Physical Date of Admission Dec 06, 2016 at 03:50 History and Physical PCP: Dr Ambar Grace ATTENDING: Dr. Thor Bernard HPI: 65 yo F admitted to [facility] for schizophrenia, being medically examined today. The patient was transferred from [facility]. She was apparently recently discharged from [facility]. She is a very poor historian. Her only complaint was nasal dryness. Denies any fevers, chills, weakness, fatigue, HERNANDEZ, CP, SOB, cough, palpitations, abdominal pain, N/V/D or changes in bowel or bladder habits. PMHx: Schizophrenia Bipolar disorder Depression Hyperlipidemia History of migraine headache COPD Tobacco use Substance use HTN PSHX: Exploratory laparoscopy Appendectomy Hernia repair SOCHX: [facility]ides in: [facility]. Lives alone with her cat. Marital Status: Single Kids: 2 children, estranged from her as they were adopted at a young age Employment: Disabled Tobacco use: One pack per day ETOH: One drink per month Illicit Drugs: Marijuana 1-2 times per week IV Drug Use: Denies Tattoos done unprofessionally: Denies FAMHX: Mother: , unknown cause Father: , unknown cause Siblings: One brother Alive, unknown Children: Alive, unknown. Unexpected deaths due to medical reasons: None. ROS: As noted in HPI, otherwise 11pt ROS of systems reviewed and remarkable only for postmenopausal. Patient was apparently recently discharged from [facility]. She states that while she was there she fell and had injury to her left foot. Nursing is reporting that she has some unsteady gait. No falls while on the unit. She is wearing an orthopedic shoe on the left foot. She states that she was given this at [facility]. She states she is having some tenderness with palpation on the dorsal aspect of the left foot when asked about this. She states this has been occurring since her fall. She also reports some low back pain. This occurs on and off. No radiation of pain down her legs. No numbness or tingling in the legs. No loss of bowel or bladder control. PE: GEN: 65yoM, appears stated age. No acute distress. Alert. Pleasant. Rambling, tangential speech. Pt has difficulty answering questions. She is a very poor historian. HEENT: Normocephalic, atraumatic. Pupils are equal, round, and reactive to light. Extraocular movements are intact. No nystagmus appreciated. Sclera are nonicteric. Conjunctiva without injection. Nose midline. Nasal turbinates without bogginess. EACs both patent BL. TMs both visualized and bates with good cone of light, no bulging or erythema. No facial asymmetry. Moist mucous membranes. Pharynx pink and moist, no cobblestoning. Neck supple, trachea midline. No lymphadenopathy or thyromegaly appreciated. CHEST: Regular rate and rhythm, +S1, +S2 LUNGS: Clear to auscultation bilaterally. No wheezes, rales, or rhonchi. Breathing appears symmetric and easy. Patient is speaking in full sentences. No accessory muscle use. ABD: Round, soft, non-tender, non-distended. +Bowel sounds throughout. No rebound or guarding. No costovertebral angle tenderness. EXT: Pulses 2+ bilaterally dorsalis pedis and radial. 1 mm distal pretibial edema appreciated. There is mild tenderness with palpation left midfoot, generalized. There is no erythema, there is no ecchymosis. She is wearing an orthopedic shoe on the side. SKIN: [place], dry, warm. Capillary refill <2sec. No rashes. NEURO: Alert and oriented x 3. Cranial nerves III-XII are intact. No focal deficits appreciated. EKG: [facility] NSR 87bpm. [facility] PCXR 12/05/[address] [facility] CT 12/05/16 Head mild vascular calcification, diffuce atrophy, NAD. [facility] Left foot 12/05/16 Slightly comminuted transverse fracture distal diaphysis third metatarsal. [facility] Labs: Ammonia 33 WBC 8.8 RBC 4.03 HGB 12.2 HCT 36.9 Plt 230 Na 139 K 4.2 Cl 99 CO2 24 Gluc 202 BUN 17 SCr 0.8 AST 17 ALT 14 LA 1.8 INR 1.06 Troponin 0.01 CPK 134 FreeT4 1.61 TSH 0.74 Toxicology unremarkable A&P: 65 yo F admitted to [facility] for schizophrenia 1. Psych. Plan per Psychiatry. Obtain baseline EKG to assure the safety of psychiatric medications as they can prolong the QT interval. 2. Nicotine dependence. Patch available. 3. Left foot pain. Check x-ray of left foot. Tylenol as needed. Continue with orthopedic shoe. Elevate left foot. Apply ice if needed. Was subsequently able to obtain XR from [facility] which does indicate fracture of left foot. Discussed with orthopedics, Claudia Watters OPHTHALMOLOGY TECHNICIAN- Cont Orthopedic shoe, WBAT, PT eval, Outpt F/U with [facility] at d/c. 4. Low back pain. Check x-ray of lumbosacral spine. Tylenol as needed. 5. HTN. Patient admits she has not been taking her Lasix. Resume Lasix 40 mg by mouth daily. Continue ASA 81 mg daily. Update CBC/BMP in AM. 6. History of COPD. Albuterol HFA 2 puffs every 4 hours as needed. 7. History of hyperlipidemia. Update fasting lipids. 8. Unsteady gait. History of fall. Request PT evaluation. 9. History of migraine headache. Continue Tylenol as needed. 10. Follow up with PCP on discharge. 11. Substance use. Per psychiatry. 12. Nasal dryness. Saline nasal spray Q2prn. 13. Deborah TIJERINA present throughout exam. Vital Signs Vital Signs Label Value Date Time Patient Temperature 98.9 degrees F 12/06/16 0833 Pulse 85 12/06/16 0833 Respiratory Rate 18 bpm 12/06/16 0833 Blood Pressure Assessment 145/73 (97) 12/06/16 0833 Bedside Pulse Oximetry 97 % 12/06/16 0833 Item Value Date Time Oxygen Delivery Method Room Air 12/06/16 0833 Home Medications Scheduled Aspirin (Aspirin 81) 81 Mg Tab 81 MG PO DAILY OBTAINED FROM PHARMACY-PT NOT A GOOD HISTORIAN Benztropine Mesylate (Benztropine Mesylate) 1 Mg Tab 2 MG PO QHS OBTAINED FROM PHARMACY-PT NOT A GOOD HISTORIAN Divalproex Sodium (Depakote ER) 500 Mg Tab 1,000 MG PO QHS OBTAINED FROM PHARMACY-PT NOT A GOOD HISTORIAN Furosemide (Furosemide) 40 Mg Tab 40 MG PO DAILY OBTAINED FROM PHARMACY-PT NOT A GOOD HISTORIAN Olanzapine (Olanzapine) 20 Mg Tab 20 MG PO QHS OBTAINED FROM PHARMACY-PT NOT A GOOD HISTORIAN Paliperidone Palmitate (Invega Sustenna) 234 Mg/1.5 Ml Inj 234 MG IM QMONTH LAST FILLED 10/03/16 Allergies Coded Allergies: No Known Allergies (Verified , 10/30/03) Regina Nathan Dec 06, 2016 12:59
[2016-12-06] MEDS: FUROSEMIDE 40 MG TAB PO SCH (14:44)
--- NOTE | 2016-12-06 14:50 | REP ---
Clinical: Pain with history of prior fall/trauma. Technique: AP, lateral, bilateral oblique views of the left ankle. Findings: Osteopenia and moderate to advanced osteoarthritic degenerative changes with possible sequelae of old injury. No obvious acute fracture dislocation. Impression: No obvious acute fracture dislocation. Signed by Bari Koenig MD 12/06/2016 02:42 P
--- NOTE | 2016-12-06 14:53 | REP ---
Clinical: Pain with history of trauma/fall. Technique: AP, lateral, bilateral oblique and coned-down views of the lumbosacral spine. Findings: Osteopenia and moderate to advanced multilevel degenerative changes are appreciated including mild grade 1 anterolisthesis at the L4-5 and L5-L1 levels with associated hypertrophic facet changes suggesting chronic change. No acute fracture / compression injury or subluxation. Impression: Osteopenia and moderate to advanced multilevel degenerative disc osteophyte complexes. No acute fracture / compression injury. Signed by Bari Koenig MD 12/06/2016 02:45 P
--- NOTE | 2016-12-06 14:57 | REP ---
Clinical: Pain with history of trauma/fall. Technique: AP, lateral, bilateral oblique views of the left foot. Findings: There is an acute nondisplaced fracture of the third metatarsal shaft. Underlying age-related osteopenia and degenerative changes noted throughout the foot and ankle. No further acute fracture or dislocation. Impression: Nondisplaced transverse fracture through the third metatarsal shaft. Signed by aBri Koenig MD 12/06/2016 02:49 P
[2016-12-06] MEDS: ACETAMINOPHEN TAB 650MG DOSE (2X325MG) PO PRN ×2 (16:23→22:01)
[2016-12-06 18:00] VITALS: BP 115/53
--- NOTE | 2016-12-06 18:37 | HPEPDOC ---
[facility] History & Physical History and Physical DATE OF ADMISSION: Dec 06, 2016 at 03:50 LEGAL STATUS AT ADMISSION: 9.39 CHIEF COMPLAINT: "I don't know" HISTORY OF THE PRESENT ILLNESS: The patient a 65-year-old woman sent to [facility] after being brought in being found to be fairly bizarre and delusional. When the patient was met with she could provide very little history stating "I just don't remember". She then appeared to be very disorganized and tangential talking about a variety of simplistic action such as going to the grocery store. However , the patient had been noted to be really delusional the past. Review of her chart indicates multiple admissions in the past for delusional and psychotic symptoms. There is a noted difficulty with outpatient medication compliance. She appears to been on Depakote and Zyprexa on her last admission that appear to stabilize her quite well. There is also limitations the patient does use a fair amount of marijuana as an outpatient which could be a provoking factor for her admission. PSYCHIATRIC ROS: Affective: Unable to determine Anxiety: Unable to determine Trauma: Unable to be determined Psychosis: Appears to be delusional and disorganized, reports auditory hallucinations "telling me to go to hell" Personally: Unable to be determined PAST PSYCHIATRIC HISTORY: Prior Psychiatric Diagnosis: Schizoaffective disorder well documented Previous admissions: Multiple up admissions last in 2014 Current Medications: Reportedly Zyprexa and Depakote Suicide attempts: Unknown Psychotropic Medication History: Reportedly has been tried on number of neuroleptics and mood stabilizers with little effect. ALLERGIES: Please see below. 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 Legal: None reported Martial: , when she was a young woman after her first psychotic break. Her reportedly her at that time due to the strain on the relationship from her first psychotic episode. Economic: Subsists on social security disability Supports: Few Abuse/trauma: Unknown SUBSTANCE ABUSE HISTORY: Reportedly had difficulty with alcohol many years ago but has been sober since. She does use marijuana reportedly 1-2 times a week. She is a pack per day smoker as well. MEDICAL HISTORY: Reportedly hyperlipidemia, hypertension and metabolic derangements. Migraine headache COPD MENTAL STATUS EXAMINATION: General: Disheveled Speech: Pressured Thought processes: Disorganized Thought content: Random thoughts Abstract reasoning, and computation: Impaired Description of associations: Loose Description of abnormal or psychotic thoughts: Admits to auditory hallucinations telling her to "go to hell", but denies any suicidal or homicidal ideation. Judgment: Poor Insight: Poor Orientation: Appears to be alert to her situation and orientated to person place and time of day Recent and remote memory: Impaired "I don't know" Attention span and concentration: Sufficient Fund of knowledge: Poor Mood: "Short of breath" Affect: Dysphoric and anxious DIAGNOSES: 1. Schizoaffective disorder by history currently in a psychotic episode 2. Cannabis use disorder, severe, in controlled setting 3. Tobacco use disorder, severe, in controlled setting 4. Alcohol use disorder, severe, in sustained remission ASSESSMENT: A 65-year-old man with a long history of inpatient psychiatric missions presents in a psychotic and delusional state. She appears to be short of breath and the medical team is working her up for possible medical causes. She has had a noted trouble with outpatient compliance to outpatient medications. These likely from the need is for her continual admissions and decompensations. PROBLEM LIST: 1. Altered thoughts 2. Coping skills 3. Anxiety INITIAL TREATMENT PLAN: 1. Patient was admitted on a 9.39 legal status. 2. Complete history was obtained. 3. With patients permission, family will be contacted and database will be expanded. 4. Patients medication regimen will be reviewed and changed accordingly. -Consideration will be given for Zyprexa restart once the patient is medically cleared by the medical team 5. Patient will be provided with protected environment. 6. Patient will be treated with individual, group, and milieu therapies. 7. Patient will receive supportive psych-education. 8. Discharge planning will commence immediately. 9. Outpatient follow-up treatment will be strongly recommended. 10. The initial treatment plan will focus initially on: Resumption of neuroleptics and mood stabilizers as needed to treat psychosis. Additionally neurocognitive testing could be useful she becomes more clear to determine if there is an underlying dementia, especially given her long history of alcoholism and cannabis use. ESTIMATED LENGTH OF STAY: 5-9 DAYS. TIME SPENT COUNSELING AND COORDINATING INITIAL CARE: 50 minutes. Medications Scheduled Aspirin (Aspirin 81) 81 Mg Tab 81 MG PO DAILY (Reported) OBTAINED FROM PHARMACY-PT NOT A GOOD HISTORIAN Benztropine Mesylate (Benztropine Mesylate) 1 Mg Tab 2 MG PO QHS (Reported) OBTAINED FROM PHARMACY-PT NOT A GOOD HISTORIAN Divalproex Sodium (Depakote ER) 500 Mg Tab 1,000 MG PO QHS (Reported) OBTAINED FROM PHARMACY-PT NOT A GOOD HISTORIAN Furosemide (Furosemide) 40 Mg Tab 40 MG PO DAILY (Reported) OBTAINED FROM PHARMACY-PT NOT A GOOD HISTORIAN Olanzapine (Olanzapine) 20 Mg Tab 20 MG PO QHS (Reported) OBTAINED FROM PHARMACY-PT NOT A GOOD HISTORIAN Paliperidone Palmitate (Invega Sustenna) 234 Mg/1.5 Ml Inj 234 MG IM QMONTH ( Reported) LAST FILLED 10/03/16 Allergies Coded Allergies: No Known Allergies (Verified , 10/30/03) GME ATTESTATION My preceptor for this patient encounter was physically present in the building during the encounter and was fully available. As needed, all aspects of the patient interview, examination, medical decision making process, and medical care plan development were reviewed and approved by the preceptor. Preceptor is aware and concurs with the plan as stated in the body of this note and will attest to such by his/her cosignature. OLY WU DO Dec 06, 2016 18:37
[2016-12-06 20:00] VITALS: BP 106/67
[2016-12-06] MEDS: MAALOX 30 ML SUSP *UDC PO PRN (22:00)
--- NOTE | 2016-12-06 22:24 | ECGEPIP ---
Stationary ECG Study [facility] Test Date: 2016-12-06 Pat Name: DEREJE RAY Department: Room: [place] [address] Gender: F Transportation Security Officer: ABDI : 1950 Requested By: Regina Nathan Order Number: [id number] Reading MD: Brianda Musa Measurements Intervals [place] Rate: 88 P: 50 CA: 152 QRS: 68 QRSD: 88 T: 61 QT: 343 QTc: 415 Interpretive Statements SINUS RHYTHM SIMILAR 08/08/14 Electronically Signed On 12-06-2016 22:23:45 EDT by Brianda Musa
[2016-12-07 06:28] VITALS: BP 109/68
[2016-12-07] MEDS: NICOTINE 21MG/24HR 1 EA TRANSDERMAL TD SCH (08:55)
[2016-12-07] MEDS: ACETAMINOPHEN TAB 650MG DOSE (2X325MG) PO PRN ×2 (08:58→15:31)
[2016-12-07] MEDS: ASPIRIN 81 MG ENTERIC TAB PO SCH (08:58)
[2016-12-07] MEDS: FUROSEMIDE 40 MG TAB PO SCH (08:58)
[2016-12-07 10:56] LABS: MEAN CORPUSCULAR HEMOGLOBIN 29.6 pg (27.0-33.0); MEAN CORPUSCULAR HGB CONC 32.2 g/dl (32.0-36.5); WHITE BLOOD COUNT 8.2 K/mm3 (4.0-10.0)
[2016-12-07 11:29] LABS: ANION GAP 8 MEQ/L (8-16); BLOOD UREA NITROGEN 24 MG/DL (7-18); CALCIUM LEVEL 8.8 MG/DL (8.8-10.2); CARBON DIOXIDE LEVEL 28 MEQ/L (21-32); CHLORIDE LEVEL 103 MEQ/L (98-107); CHOLESTEROL LEVEL 204 MG/DL (<200); CREATININE FOR GFR 0.91 MG/DL (0.55-1.02); GLOMERULAR FILTRATION RATE > 60.0 (>45); GLUCOSE, FASTING 124 MG/DL (80-110); POTASSIUM SERUM 4.5 MEQ/L (3.5-5.1); SODIUM LEVEL 139 MEQ/L (136-145); TRIGLYCERIDES LEVEL 150 MG/DL (<150)
[2016-12-07 18:00] VITALS: BP 121/69
[2016-12-07] MEDS: traZODone 50 MG TAB PO PRN (20:25)
--- NOTE | 2016-12-07 20:40 | IPNPDOC ---
[facility] Progress Note Progress Note DATE OF SERVICE: 12/07/16 HISTORY: The patient a 65-year-old woman transferred to [facility] from [facility] due to symptoms of paranoia, delusional thinking, bizarre behavior, hallucinations, medication noncompliance, psychosis, and erratic sleep. Patient was recently discharged from the [facility] after being admitted for psychosis, has history of multiple psychiatric admissions to treat symptoms of psychosis and delusional thinking. Patient is poor historian, initially denies all symptoms and states she will take no medications. After some engagement, patient indicates she feels depressed and anxious, experiences visual hallucinations which she describes as "I see the water move in the picture," experiences audio hallucinations noting, "they don't bother me," states she last heard this morning and denies command element to sensory experience. Patient states she slept well last night notes she averages 4 hours of sleep per night, endorses challenges with concentration and focus, notes her appetite is stable. Patient is unable to tell advertising copy writer what medication she has been taking but notes "I don't want to take any of them anymore, they don't work." Patient then states she had been taking injectable medication, indicates medication was effective and states she would be willing to restart. Patient has not been attending groups, describes herself as an "loner," and indicates she has no intentions of participating in unit programming. Patient reports 4/ 10 pain to foot, ambulates with orthopedic boot. Patient presents with no signs of acute distress at time of interaction. Per EMR, patient has notable history of medication trials and medication noncompliance. In addition, it appears patient is a regular user of cannabis. VITAL SIGNS: See below. NEW TEST RESULTS: No new results. Labs on admission indicate elevated BUN, glucose and cholesterol. Patient has history of appendectomy, hernia repair, exploratory laparoscopy, hyperlipidemia, migraine, HTN, COPD experiences left foot pain and uses orthopedic boot. Patient exhibits tremor at rest EKG 12/06/16 sinus rhythm Left foot x-ray pending CURRENT MEDICATIONS: See below. MENTAL STATUS EXAMINATION: Patient is 65-year-old female who is pleasant and cooperative, is poor historian, is experiencing delusional thinking and symptoms of psychosis at time of interaction. Patient is disheveled, dressed in hospital clothing, makes poor eye contact, ambulates with unsteady gait, exhibits resting tremor, appears stated age Speech: Is pressured, responses are delayed, tangential, flight of ideas, low volume, partially coherent Language skills are some impairment. Thought processes: Not goal-directed, disorganized Thought content: Irrational, illogical, tangential, paranoid, appears to be responding to internal stimuli, bizarre Abstract reasoning: Requires further evaluation Description of associations: Loose, tangential, circumstantial. Description of abnormal or psychotic thoughts: endorses hallucinations, presents with delusions, no preoccupation with violence noted, no homicidal or suicidal ideation detected, and obsessions. Judgment: Poor. Insight: Poor. Orientation to person, asked the hospital she was in and did not appear to be oriented to time of day. Recent and remote memory: Impaired. Attention span and concentration: Limited. Language: Limited. Fund of knowledge: Requires further evaluation. Mood: Appears anxious, depressed, is delusional, is experiencing symptoms of psychosis, appears to be responding to internal stimuli Affect: Blunted, anxious, congruent with mood presentation DIAGNOSES: Schizoaffective disorder, currently in psychotic episode, Cannabis use disorder, history of alcohol use disorder ASSESSMENT: Patient is 65-year-old female with notable history of psychiatric admissions and currently presents in a psychotic and delusional state, has notable history of poor outpatient follow-up and medication noncompliance. Patient denies suicidal and homicidal ideation and nursing is monitoring patient closely for comfort and safety. Patient has been isolating to room, not attending groups, presents as calm and cooperative at time of interaction, denies irritability, agitation, and command element to [facility]. Patient indicates she does not know what medication she was taking, when asked if she was taking Zyprexa, Depakote, Cogentin, or Invega Sustenna, patient is able to affirm and informs advertising copy writer that the only medication she is willing to restart is Invega Sustenna. Patient states Invega Sustenna was effective when she was taking, is unable to tell advertising copy writer when she received her last injection. Per medication reconciliation, Invega Sustenna was last filled on 10/03/16, record does not indicate effectiveness or whether injection was actually administered. regulatory coordinator is pursuing confirmation from patient's outpatient provider, [facility], as to medication effectiveness and when last given, has initiated contact with patient's [facility] correctional casework specialist, and is also pursuing records from [facility], from where patient was reportedly recently discharged. MANAGEMENT PLAN: Upon receiving confirmation from [facility] of medication effectiveness and last dose provided, re-initiate Invega Sustenna injection if appropriate. Encourage patient to consider taking psychotropic medication to address symptoms Maintain safety precautions Encourage patient to attend groups and participate in unit programming to develop coping strategies Engage patient in discharge planning process and arrange meeting with support system to ensure safe discharge planning when appropriate Patient to follow up with PCM upon discharge TIME SPENT: 45 minutes. Vital Signs Vital Signs Date Time Temp Pulse Resp B/P Pulse Ox O2 Delivery O2 Flow Rate FiO2 12/07/16 06:28 97.9 88 20 109/68 12/06/16 08:33 97 Room Air Laboratory Data 24H Labs Laboratory Tests 2 12/07/16 10:23: Anion Gap 8, Calcium Level 8.8, Triglycerides Level 150, Cholesterol Level 204H , HDL Cholesterol 77, LDL Cholesterol 97.0, Cholesterol/HDL Ratio 2.649, Glomerular Filtration Rate > 60.0, Non-HDL Cholesterol (LDL + VLDL) 127 CBC/BMP Laboratory Tests 12/07/16 10:23 Red Blood Count 4.27, Mean Corpuscular Volume 92.0, Mean Corpuscular Hemoglobin 29.6, Mean Corpuscular Hemoglobin Concent 32.2, Red Cell Distribution Width 13.0 Current Medications Current Medications Acetaminophen (Tylenol Tab) 650 mg Q6HP PRN PO HEADACHE or DISCOMFORT Last administered on 12/07/16 15:31; Start 12/06/16 at 04:00; Stop 01/05/17 at 03:59 Al Hydrox/Mg Hydrox/Simethicone (Mylanta) 30 ml Q4HP PRN PO HEARTBURN/ INDIGESTION Last administered on 12/06/16 22:00; Start 12/06/16 at 04:00; Stop 01/05/17 at 03:59 Albuterol Sulfate (Proventil, Ventolin Hfa) 2 puff Q4HP PRN INH SHORTNESS OF BREATH; Start 12/06/16 at 13:15; Stop 01/05/17 at 13:14 Aspirin (Ecotrin) 81 mg DAILY PO Last administered on 12/07/16 08:58; Start at 09:00; Stop 01/06/17 at 08:59 Furosemide (Lasix) 40 mg DAILY PO Last administered on 12/07/16t 08:58; Start 12/06/16 at 09:00; Stop 01/05/17 at 08:59 Home Med (Med Rec Complete!) ASDIRECTED XX ; Start 12/06/16 at 07:30; Stop at 07:31; Status DC Magnesium Hydroxide (Milk Of Magnesia) 30 ml DAILYPRN PRN PO CONSTIPATION; Start 12/06/16 at 04:00; Stop 01/05/17 at 03:59 Nicotine (Nicoderm Cq 21mg) 1 patch DAILY TD ; Start 12/06/16 at 09:00; Stop at 08:59 Sodium Chloride ([place] Nasal [place]) 2 spray Q2HP PRN NA NASAL DRYNESS; Start at 13:00; Stop 01/05/17 at 12:59 Trazodone HCl (Desyrel) 50 mg QHSP PRN PO INSOMNIA; Start 12/06/16 at 04:00; Stop 01/05/17 at 03:59 Allergies Coded Allergies: No Known Allergies (Verified , 10/30/03) Celena Badillo Dec 07, 2016 20:40
[2016-12-07] MEDS ORDERED: LORazepam 1 MG TAB PO ONE (23:15)
[2016-12-08 06:42] VITALS: BP 146/77
[2016-12-08] MEDS: FUROSEMIDE 40 MG TAB PO SCH (08:59)
[2016-12-08] MEDS: ASPIRIN 81 MG ENTERIC TAB PO SCH (08:59)
[2016-12-08] MEDS: NICOTINE 21MG/24HR 1 EA TRANSDERMAL TD SCH (09:00)
[2016-12-08] MEDS: ACETAMINOPHEN TAB 650MG DOSE (2X325MG) PO PRN (09:02)
--- NOTE | 2016-12-08 16:17 | IPNPDOC ---
[facility] Progress Note Progress Note DATE OF SERVICE: 12/08/16 INTERVAL HISTORY: The patient is met with today in her room. She described that she was feeling somewhat distorted. She requested a "cover for my head" because she reportedly felt her head was as soft as "a babies". She appeared to allude to fears that her cat would not be taken care of at home. She described that she didn't know which medications she was on currently area and she did state she felt a little better being in the torres. She was noted on interview be fairly distorted and tangential in much the interview was difficult to perform. She has been noted by staff to be generally amenable although at times selective about what staff member she will be upset with. She's had no overt episodes of agitation on the torres. Otherwise no complaints today per patient VITAL SIGNS: See below. NEW TEST RESULTS: See below CURRENT MEDICATIONS: See below. MENTAL STATUS EXAMINATION: General: Well dressed with good hygiene Speech: Pressured Thought processes: Tangential and disorganized Thought content: Random disconnected thoughts Abstract reasoning, and computation: [place] thinking Description of associations: Loose Description of abnormal or psychotic thoughts:Denies any suicidal or homicidal ideation. Denies any auditory or visual hallucinations. Does not appear to be responding to internal stimuli. Judgment: Poor Insight: Poor Orientation: Alert and orientated 3 Recent and remote memory: Intact Attention span and concentration: Intact Fund of knowledge: Unable to determine Mood: "Okay where is my Viki" Affect: Flat/blunted DIAGNOSES: 1. Unspecified psychosis History of schizoaffective disorder well documented. 2. Cannabis use disorder, severe, in controlled setting. 3. Medication noncompliance ASSESSMENT: The patient a 65-year-old woman with a long history of schizoaffective disorder presents after reportedly not continuing to take her medications. She appears to have decompensated into psychosis she's had difficulties in the past with volume or outpatient providers. Rarely she done well on olanzapine augmented with a vigorous sustain for long-term coverage due to noncompliance. She is improved slightly on the torres since I initially saw her for her admission where she was fairly distorted. She appears to medically stabilized. MANAGEMENT PLAN: Medications: Start olanzapine 5 mg at night and titrated up to affect. Patient desires to have eye drops and nasal spray which will prescribe Psychotherapy: Prefer patient participated and more simplistic psychotherapy based on supportive and activities Social: Social work has arranged for care of the patient's cat Misc: None Disposition: The patient is still very psychotic and he'll require further inpatient treatment to stabilize her and she is poses a danger to herself as an outpatient due to her gravely disabled state. TIME SPENT: 15 minutes. Vital Signs Vital Signs Date Time Temp Pulse Resp B/P Pulse Ox O2 Delivery O2 Flow Rate FiO2 12/08/16 06:42 98.0 99 20 146/77 Room Air 12/06/16 08:33 97 Current Medications Current Medications Acetaminophen (Tylenol Tab) 650 mg Q6HP PRN PO HEADACHE or DISCOMFORT Last administered on 12/08/16 09:02; Start 12/06/16 at 04:00; Stop 01/05/17 at 03:59 Al Hydrox/Mg Hydrox/Simethicone (Mylanta) 30 ml Q4HP PRN PO HEARTBURN/ INDIGESTION Last administered on 12/06/16 22:00; Start 12/06/16 at 04:00; Stop 01/05/17 at 03:59 Albuterol Sulfate (Proventil, Ventolin Hfa) 2 puff Q4HP PRN INH SHORTNESS OF BREATH; Start 12/06/16 at 13:15; Stop 01/05/17 at 13:14 Aspirin (Ecotrin) 81 mg DAILY PO Last administered on 12/08/16 08:59; Start at 09:00; Stop 01/06/17 at 08:59 Furosemide (Lasix) 40 mg DAILY PO Last administered on 12/08/16 08:59; Start 12/06/16 at 09:00; Stop 01/05/17 at 08:59 Home Med (Med Rec Complete!) ASDIRECTED XX ; Start 12/06/16 at 07:30; Stop at 07:31; Status DC Magnesium Hydroxide (Milk Of Magnesia) 30 ml DAILYPRN PRN PO CONSTIPATION; Start 12/06/16 at 04:00; Stop 01/05/17 at 03:59 Nicotine (Nicoderm Cq 21mg) 1 patch DAILY TD ; Start 12/06/16 at 09:00; Stop at 08:59 Sodium Chloride ([place] Nasal [place]) 2 spray Q2HP PRN NA NASAL DRYNESS; Start at 13:00; Stop 01/05/17 at 12:59 Trazodone HCl (Desyrel) 50 mg QHSP PRN PO INSOMNIA Last administered on t 20:25; Start 12/06/16 at 04:00; Stop 01/05/17 at 03:59 Allergies Coded Allergies: No Known Allergies (Verified , 10/30/03) GME ATTESTATION My preceptor for this patient encounter was physically present in the building during the encounter and was fully available. As needed, all aspects of the patient interview, examination, medical decision making process, and medical care plan development were reviewed and approved by the preceptor. Preceptor is aware and concurs with the plan as stated in the body of this note and will attest to such by his/her cosignature. OLY UW DO Dec 08, 2016 16:17
[2016-12-08 18:00] VITALS: BP 122/61
[2016-12-08] MEDS ORDERED: OLANZapine 5 MG TAB PO SCH (21:00)
[2016-12-09 06:21] VITALS: BP 132/72
--- NOTE | 2016-12-09 08:28 | IPN ---
DATE: 12/09/2016 I met with Ms. Varela today. She was extremely agitated and extremely upset. She complained of seeing Prolixin coming out of her feet. She complained of difficulties with her head. She complained about Orientals on the unit. Though she is difficult to understand, she had much to say. MENTAL STATUS EXAMINATION: Speech was pressured. Thought process was tangential and associations were loose. Thought content: She demonstrated random disconnected thoughts. She showed no abstract reasoning or computation. She had visual hallucinations and perhaps auditory hallucinations, describing Prolixin coming out of her feet. Her judgment is poor, insight was poor. Recent and remote memory intact. She was oriented. Attention span and concentration were poor. Fund of knowledge was unable to be determined. Affect was nervous, anxious and tearful. DIAGNOSES: Unspecified psychosis. History of schizoaffective disorder. History of cannabis use disorder. The patient was placed on Zyprexa, and I have increased her dose to 7.5 mg from 5 mg.
[2016-12-09] MEDS: NICOTINE 21MG/24HR 1 EA TRANSDERMAL TD SCH (09:00)
[2016-12-09] MEDS: FUROSEMIDE 40 MG TAB PO SCH (09:00)
[2016-12-09] MEDS: ASPIRIN 81 MG ENTERIC TAB PO SCH (09:00)
[2016-12-09] MEDS: MAALOX 30 ML SUSP *UDC PO PRN (14:06)
[2016-12-09] MEDS: ACETAMINOPHEN TAB 650MG DOSE (2X325MG) PO PRN (17:04)
[2016-12-09 18:00] VITALS: BP 132/77
[2016-12-09] MEDS ORDERED: OLANZapine 5 MG TAB PO SCH (21:00)
[2016-12-10 06:20] VITALS: BP 116/64
[2016-12-10] MEDS: ASPIRIN 81 MG ENTERIC TAB PO SCH ×2 (08:54→09:00)
[2016-12-10] MEDS: NICOTINE 21MG/24HR 1 EA TRANSDERMAL TD SCH (08:55)
[2016-12-10] MEDS: FUROSEMIDE 40 MG TAB PO SCH ×2 (08:55→09:00)
--- NOTE | 2016-12-10 13:49 | IPN ---
DATE: 12/10/2016 Ms. Varela continues extremely thought disorder. She was drawing pictures which are incomprehensible diagrams which she was handing out to everyone on the unit. I have increased her Zyprexa to 7.5 mg. The patient has had numerous fears that she has communicated and she has anxieties also that she communicates and worries about but her thoughts continue to be tangential and disorganized. Her thought content is random and disconnected. Her abstract reasoning is not available as she does not engage in concrete thickening. Her associations are loose. She is denying any suicidal or homicidal ideation. Impossible to test her recent and remote memory. Attention span and concentration are poor. Poor fund of knowledge. Affect is flat and anxious. DIAGNOSIS: Schizoaffective disorder history. I have increased her Zyprexa as stated. MTDD
[2016-12-10] MEDS: SODIUM CHLORIDE NASAL 0.65% SPRAY BTL (OCEAN) PRN (15:02)
[2016-12-10 18:00] VITALS: BP 112/67
[2016-12-10] MEDS ORDERED: OLANZapine 10 MG TAB PO SCH (21:00)
[2016-12-10] MEDS: ACETAMINOPHEN TAB 650MG DOSE (2X325MG) PO PRN (21:34)
[2016-12-10] MEDS: ALBUTEROL 90 MCG/ACT 8GM HFA INHALER INH PRN (21:35)
[2016-12-11 06:00] VITALS: BP 108/66
[2016-12-11] MEDS: ASPIRIN 81 MG ENTERIC TAB PO SCH (08:57)
[2016-12-11] MEDS: NICOTINE 21MG/24HR 1 EA TRANSDERMAL TD SCH (08:58)
[2016-12-11] MEDS: FUROSEMIDE 40 MG TAB PO SCH (08:58)
[2016-12-11 18:23] VITALS: BP 116/77
--- NOTE | 2016-12-11 20:18 | IPNPDOC ---
[facility] Progress Note Progress Note DATE OF SERVICE: 12/11/16 HISTORY: The patient is met with today in her room. Patient indicated that she is feeling "ok," informed instructional writer she has been attending some groups and stated she feels that they are helpful, noting she has been attending the craft groups. Patient informed instructional writer she has not been able to attend groups which require maintained concentration. Patient reported 2/10 anxiety, 2/10 depression , indicated she last experienced visual hallucinations last night which she described as "a man I saw that was scared of me and I scared him." Patient denied suicidal and homicidal ideation and denied urge to engage in self- injurious behavior. Patient states she took olanzapine last night, had refused it prior to last night, indicates medication was "too strong," adding she woke up this morning with her head feeling "numb but it hurt," agreed to continue taking medication but made request for reduced dose. Patient also remains in agreement to taking injectable medication, is aware social services analyst continues to attempt to verify when injection was last received an difficult was effective. Patient was less distorted and less tangential today, generally redirectable in conversation, expressed notably reduced delusional thinking. Patient reported improved sleep and energy level, endorsed ongoing challenges with concentration or focus. Patient presented with no signs of acute distress at time of interaction. VITAL SIGNS: See below. NEW TEST RESULTS: No new results. Labs on admission indicate elevated BUN, glucose and cholesterol. Patient has history of appendectomy, hernia repair, exploratory laparoscopy, hyperlipidemia, migraine, HTN, COPD experiences left foot pain and uses orthopedic boot. Patient exhibits tremor at rest EKG 12/06/16 sinus rhythm Left foot x-ray pending CURRENT MEDICATIONS: See below. MENTAL STATUS EXAMINATION: Patient is 65-year-old female who is pleasant and cooperative, is better historian, is less disheveled today, dressed in hospital clothing, makes improved eye contact, ambulates with unsteady gait, exhibits resting tremor, appears stated age General: Well dressed with good hygiene Speech: Pressured Thought processes: Less tangential and less disorganized, some indication of goal direction Thought content: Reduced delusional thinking, less bizarre, more redirectable Abstract reasoning, and computation: [place] thinking Description of associations: More intact, less loose Description of abnormal or psychotic thoughts:Denies any suicidal or homicidal ideation. Denies any auditory or visual hallucinations at time of interaction, notes last experienced visual hallucinations this morning. Does not appear to be responding to internal stimuli. Judgment: Poor Insight: Poor Orientation: Alert and orientated 3 Recent and remote memory: Intact Attention span and concentration: Intact Fund of knowledge: Unable to determine Mood: "A little better, not depressed." Patient appears anxious, less depressed , mood appears level Affect: Blunted but brightens, congruent with mood DIAGNOSES: Schizoaffective disorder, currently in psychotic episode, Cannabis use disorder, history of alcohol use disorder ASSESSMENT: The patient a 65-year-old woman with a long history of schizoaffective disorder presents after reportedly not continuing to take her medications. Patient denies suicidal and homicidal ideation and nursing is monitoring patient closely for comfort and safety. Patient indicates she refused Zyprexa 2 days but took it last night, indicates dose was too strong but agrees to continue to take medication at lower dose. Patient remains agreeable to take injectable medication, social services analyst continues to pursue verification of last administration and medication effectiveness. Patient states Invega Sustenna was effective when she was taking, is unable to tell instructional writer when she received her last injection. Per medication reconciliation, Invega Sustenna was last filled on 10/03/16, record does not indicate effectiveness or whether injection was actually administered. mail service coordinator is pursuing confirmation from patient's outpatient provider, [facility], as to medication effectiveness and when last given, has initiated contact with patient's [facility] pillowcase maker, and is also pursuing records from [facility], from where patient was reportedly recently discharged. In the interim, will continue to encourage patient to take medications and we'll lower Zyprexa dose to 5 mg in effort to extinguish medication side effects. Will monitor patient's response to medication and for medication side effects, will evaluate patient safety and discharge readiness. MANAGEMENT PLAN: Reduce Zyprexa to 5 mg po with plan to titrate as tolerated by patient. Upon receiving confirmation from [facility] of medication effectiveness and last dose provided, re-initiate Invega Sustenna injection if appropriate. Encourage patient to consider taking psychotropic medication to address symptoms Maintain safety precautions Encourage patient to attend groups and participate in unit programming to develop coping strategies Engage patient in discharge planning process and arrange meeting with support system to ensure safe discharge planning when appropriate Patient to follow up with PCM upon discharge TIME SPENT: 35 minutes. Vital Signs Vital Signs Date Time Temp Pulse Resp B/P Pulse Ox O2 Delivery O2 Flow Rate FiO2 12/11/16 18:23 98.9 97 16 116/77 12/08/16 06:42 Room Air 12/06/16 08:33 97 Current Medications Current Medications Acetaminophen (Tylenol Tab) 650 mg Q6HP PRN PO HEADACHE or DISCOMFORT Last administered on 12/10/16 21:34; Start 12/06/16 at 04:00; Stop 01/05/17 at 03:59 Al Hydrox/Mg Hydrox/Simethicone (Mylanta) 30 ml Q4HP PRN PO HEARTBURN/ INDIGESTION Last administered on 12/09/16 14:06; Start 12/06/16 at 04:00; Stop 01/05/17 at 03:59 Albuterol Sulfate (Proventil, Ventolin Hfa) 2 puff Q4HP PRN INH SHORTNESS OF BREATH Last administered on 12/10/16 21:35; Start 12/06/16 at 13:15; Stop 01/05 at 13:14 Artificial Tears ([place] Tears) 2 drop TIDP PRN OU DRY EYES; Start 12/08/16 at 16 :30; Stop 01/07/17 at 16:29 Aspirin (Ecotrin) 81 mg DAILY PO Last administered on 12/08/16 08:59; Start at 09:00; Stop 01/06/17 at 08:59 Furosemide (Lasix) 40 mg DAILY PO Last administered on 12/08/16 08:59; Start 12/06/16 at 09:00; Stop 01/05/17 at 08:59 Home Med (Med Rec Complete!) ASDIRECTED XX ; Start 12/06/16 at 07:30; Stop at 07:31; Status DC Magnesium Hydroxide (Milk Of Magnesia) 30 ml DAILYPRN PRN PO CONSTIPATION; Start 12/06/16 at 04:00; Stop 01/05/17 at 03:59 Nicotine (Nicoderm Cq 21mg) 1 patch DAILY TD ; Start 12/06/16 at 09:00; Stop at 08:59 Olanzapine (ZyPREXA) 5 mg QHS PO ; Start 12/08/16 at 21:00; Stop 12/09/16 at 08: 20; Status DC Olanzapine (ZyPREXA) 7.5 mg QHS PO ; Start 12/09/16 at 21:00; Stop 12/10/16 at 13:18; Status DC Olanzapine (ZyPREXA) 10 mg QHS PO Last administered on 12/10/16 21:34; Start 12/10/16 at 21:00; Stop 01/09/17 at 20:59 Sodium Chloride ([place] Sal[place] Nasal Gel) APPLY SMALL [place]... Q4HP PRN NA NASAL DRYNESS; Start 12/08/16 at 16:30; Stop 01/07/17 at 16:29 Sodium Chloride ([place] Nasal [place]) 2 spray Q2HP PRN NA NASAL DRYNESS Last administered on 12/10/16 15:02; Start 12/06/16 at 13:00; Stop 01/05/17 at 12:59 Trazodone HCl (Desyrel) 50 mg QHSP PRN PO INSOMNIA Last administered on 20:25; Start 12/06/16 at 04:00; Stop 01/05/17 at 03:59 Allergies Coded Allergies: No Known Allergies (Verified , 10/30/03) Celena Badillo Dec 11, 2016 20:18
[2016-12-11] MEDS ORDERED: OLANZapine 5 MG TAB PO SCH (21:00)
[2016-12-12] MEDS: MAALOX 30 ML SUSP *UDC PO PRN (02:21)
[2016-12-12 06:21] VITALS: BP 112/60
[2016-12-12] MEDS: FUROSEMIDE 40 MG TAB PO SCH ×2 (08:56→09:00)
[2016-12-12] MEDS: ASPIRIN 81 MG ENTERIC TAB PO SCH ×2 (08:56→09:00)
[2016-12-12] MEDS: NICOTINE 21MG/24HR 1 EA TRANSDERMAL TD SCH (08:56)
--- NOTE | 2016-12-12 09:22 | IPNPDOC ---
[facility] Progress Note Progress Note DATE OF SERVICE: 12/12/16 HISTORY: The patient is met with today in her room. Patient refused hs olanzapine dose last night, was agreeable to taking this morning, on follow-up made no report of medication side effects. Patient presented as more anxious and irritable today, was resistant to interacting with mortgage underwriter, however, agreed to speak with mortgage underwriter if able to walk hallways. Patient stated she continues to make efforts to attend groups, reported increase in symptoms of anxiety, denied symptoms of depression, denied suicidal and homicidal ideation, and denied urge to engage in self-injurious behavior. Patient endorsed audiovisual hallucinations earlier in morning but declined to elaborate. Patient stated she would continue to take medication at current dose, today stated she would not take injectable medication, is currently refusing balance of medication regimen. Patient is aware social science teacher continues to attempt to verify when injection was last received an difficult was effective. Patient was more distorted, exhibited increase in delusional thinking, more tangential today but remains redirectable in conversation. Patient reported improved sleep (contrary to EMR which indicates reduced sleep) and energy level, endorsed ongoing challenges with concentration or focus. Patient presented with no signs of acute distress at time of interaction. VITAL SIGNS: See below. NEW TEST RESULTS: No new results. Labs on admission indicate elevated BUN, glucose and cholesterol. Patient has history of appendectomy, hernia repair, exploratory laparoscopy, hyperlipidemia, migraine, HTN, COPD experiences left foot pain and uses orthopedic boot. Patient exhibits tremor at rest EKG 12/06/16 sinus rhythm Left foot x-ray pending CURRENT MEDICATIONS: See below. MENTAL STATUS EXAMINATION: Patient is 65-year-old female who is generally cooperative, is poor historian, is more disheveled today, dressed in hospital clothing, makes fair eye contact, ambulates with unsteady gait, exhibits resting tremor, appears stated age Speech: Pressured Thought processes: More tangential and disorganized, some indication of goal direction Thought content: Increased delusional thinking, bizarre, remains generally redirectable Abstract reasoning, and computation: [place] thinking Description of associations: Less intact, loose Description of abnormal or psychotic thoughts: Denies any suicidal or homicidal ideation. Denies any auditory or visual hallucinations at time of interaction but notes has experienced this morning, does not appear to be responding to internal stimuli. Judgment: Poor Insight: Poor Orientation: Alert and orientated 3 Recent and remote memory: Appears intact Attention span and concentration: Intact Fund of knowledge: Unable to determine Mood: "Okay ." Patient appears more anxious, more depressed, some mood lability noted Affect: Blunted DIAGNOSES: Schizoaffective disorder, currently in psychotic episode, Cannabis use disorder, history of alcohol use disorder ASSESSMENT: The patient a 65-year-old woman with a long history of schizoaffective disorder presents after reportedly not continuing to take her medications. Patient denies suicidal and homicidal ideation and nursing is monitoring patient closely for comfort and safety. Patient had refused Zyprexa 2 days but took it night before last, indicated yesterday that dose was too strong but agrees to continue to take medication at lower dose. Patient today states she does not want to take injectable medication, social science teacher continues to pursue verification of last administration and medication effectiveness. Patient states Invega Sustenna was effective when she was taking, is unable to tell mortgage underwriter when she received her last injection. Per medication reconciliation , Invega Sustenna was last filled on 10/03/16, record does not indicate effectiveness or whether injection was actually administered. coordinator of online programs is pursuing confirmation from patient's outpatient provider, [facility], as to medication effectiveness and when last given, has initiated contact with patient's [facility] immigration case worker, and is also pursuing records from [facility], from where patient was reportedly recently discharged. In the interim, will continue to encourage patient to take medications. Will monitor patient's response to medication and for medication side effects, will evaluate patient safety and discharge readiness. MANAGEMENT PLAN: Change Zyprexa to 5 mg BID. Upon receiving confirmation from [facility] of medication effectiveness and last dose provided, re-initiate Invega Sustenna injection if appropriate. Encourage patient to consider taking psychotropic medication to address symptoms Maintain safety precautions Encourage patient to attend groups and participate in unit programming to develop coping strategies Engage patient in discharge planning process and arrange meeting with support system to ensure safe discharge planning when appropriate Patient to follow up with PCM upon discharge TIME SPENT: 35 minutes. Vital Signs Vital Signs Date Time Temp Pulse Resp B/P Pulse Ox O2 Delivery O2 Flow Rate FiO2 12/12/16 06:21 97.5 102 20 112/60 Room Air 12/06/16 08:33 97 Current Medications Current Medications Acetaminophen (Tylenol Tab) 650 mg Q6HP PRN PO HEADACHE or DISCOMFORT Last administered on 12/10/16 21:34; Start 12/06/16 at 04:00; Stop 01/05/17 at 03:59 Al Hydrox/Mg Hydrox/Simethicone (Mylanta) 30 ml Q4HP PRN PO HEARTBURN/ INDIGESTION Last administered on 12/12/16 02:21; Start 12/06/16 at 04:00; Stop 01/05/17 at 03:59 Albuterol Sulfate (Proventil, Ventolin Hfa) 2 puff Q4HP PRN INH SHORTNESS OF BREATH Last administered on 12/10/16 21:35; Start 12/06/16 at 13:15; Stop 01/05 at 13:14 Artificial Tears ([place] Tears) 2 drop TIDP PRN OU DRY EYES; Start 12/08/16 at 16 :30; Stop 01/07/17 at 16:29 Aspirin (Ecotrin) 81 mg DAILY PO Last administered on 12/08/16 08:59; Start at 09:00; Stop 01/06/17 at 08:59 Furosemide (Lasix) 40 mg DAILY PO Last administered on 12/08/16 08:59; Start 12/06/16 at 09:00; Stop 01/05/17 at 08:59 Home Med (Med Rec Complete!) ASDIRECTED XX ; Start 12/06/16 at 07:30; Stop at 07:31; Status DC Magnesium Hydroxide (Milk Of Magnesia) 30 ml DAILYPRN PRN PO CONSTIPATION; Start 12/06/16 at 04:00; Stop 01/05/17 at 03:59 Nicotine (Nicoderm Cq 21mg) 1 patch DAILY TD ; Start 12/06/16 at 09:00; Stop at 08:59 Olanzapine (ZyPREXA) 5 mg QHS PO ; Start 12/08/16 at 21:00; Stop 12/09/16 at 08: 20; Status DC Olanzapine (ZyPREXA) 5 mg QHS PO ; Start 12/11/16 at 21:00; Stop 01/10/17 at 20: 59 Olanzapine (ZyPREXA) 7.5 mg QHS PO ; Start 12/09/16 at 21:00; Stop 12/10/16 at 13:18; Status DC Olanzapine (ZyPREXA) 10 mg QHS PO Last administered on 12/10/16 21:34; Start 12/10/16 at 21:00; Stop 12/11/16 at 20:25; Status DC Sodium Chloride ([place] Saline Nasal Gel) APPLY SMALL WALDEMAR... Q4HP PRN NA NASAL DRYNESS; Start 12/08/16 at 16:30; Stop 01/07/17 at 16:29 Sodium Chloride ([place] Nasal [place]) 2 spray Q2HP PRN NA NASAL DRYNESS Last administered on 12/10/16 15:02; Start 12/06/16 at 13:00; Stop 01/05/17 at 12:59 Trazodone HCl (Desyrel) 50 mg QHSP PRN PO INSOMNIA Last administered on 20:25; Start 12/06/16 at 04:00; Stop 01/05/17 at 03:59 Allergies Coded Allergies: No Known Allergies (Verified , 10/30/03) Celena Badillo Dec 12, 2016 09:22
[2016-12-12] MEDS ORDERED: OLANZapine 5 MG TAB PO ONE (09:30)
[2016-12-12 18:00] VITALS: BP 94/51
[2016-12-12] MEDS: OLANZapine 5 MG TAB PO SCH (20:35)
[2016-12-12] MEDS: traZODone 50 MG TAB PO PRN (22:59)
[2016-12-13 06:11] VITALS: BP 122/70
[2016-12-13] MEDS: NICOTINE 21MG/24HR 1 EA TRANSDERMAL TD SCH (08:18)
[2016-12-13] MEDS: FUROSEMIDE 40 MG TAB PO SCH (08:19)
[2016-12-13] MEDS: OLANZapine 5 MG TAB PO SCH ×2 (08:19→20:31)
[2016-12-13] MEDS: ASPIRIN 81 MG ENTERIC TAB PO SCH (08:19)
[2016-12-13] MEDS: ACETAMINOPHEN TAB 650MG DOSE (2X325MG) PO PRN ×2 (13:08→19:49)
[2016-12-13 17:13] VITALS: BP 105/56
[2016-12-13 18:00] VITALS: BP 107/61
[2016-12-13] MEDS: traZODone 50 MG TAB PO PRN (20:31)
[2016-12-13] MEDS ORDERED: OLANZapine 5 MG TAB PO ONE (20:45)
[2016-12-13] MEDS: POLYVINYL ALCOHOL OPHTH SOLN 15 ML(LIQUITEARS) OU PRN (21:03)
--- NOTE | 2016-12-13 21:42 | IPNPDOC ---
[facility] Progress Note Progress Note DATE OF SERVICE: 12/13/16 HISTORY: The patient is met with today in her room. Patient has been taking olanzapine, denied expensing medication side effects. Per EMR patient's sleep was improved last night. Patient presented with reduced symptoms of anxiety and was less irritable during interaction today, liver, remains resistant to interacting with commercial real estate underwriter. Patient was observed to be walking in hallways at times during the day, resting in bed, made attempts to attend groups. Patient denied experiencing symptoms of anxiety and depression at time of interaction, endorsed visual hallucinations of "seeing people sometimes and sometimes about sexual stuff" she declined to discuss further, denies audiovisual hallucinations , denied urge to engage in self-injurious behavior, and denied suicidal and homicidal ideation. Patient remains delusional and tangential, appeared to be responding to internal stimuli at times. Patient continues to state she will not take injectable medication, continues to refuse balance of medication regimen. Patient is aware social staff worker continues to attempt to verify medication history and treatment information from [facility] and nurse outreach case manager. Patient has been eating and remains visible on unit, presented with no signs of acute distress at time of interaction. VITAL SIGNS: See below. NEW TEST RESULTS: No new results. Labs on admission indicate elevated BUN, glucose and cholesterol. Patient has history of appendectomy, hernia repair, exploratory laparoscopy, hyperlipidemia, migraine, HTN, COPD experiences left foot pain and uses orthopedic boot. Patient exhibits tremor at rest EKG 12/06/16 sinus rhythm Left foot x-ray pending CURRENT MEDICATIONS: See below. MENTAL STATUS EXAMINATION: Patient is 65-year-old female who is generally cooperative, is poor historian, is less disheveled today, dressed in hospital clothing, makes fair eye contact, ambulates with unsteady gait, exhibits resting tremor, appears stated age Speech: Pressured, of normal volume Thought processes: Remains tangential and disorganized, some indication of goal direction Thought content: Ongoing delusional thinking, bizarre, remains generally redirectable Abstract reasoning, and computation: [place] thinking Description of associations: Less intact, loose Description of abnormal or psychotic thoughts: Denies any suicidal or homicidal ideation. Denies any auditory or visual hallucinations at time of interaction but notes has experienced this morning, is observed to be responding to internal stimuli at times on unit. Judgment: Poor Insight: Poor Orientation: Alert and orientated 3 Recent and remote memory: Appears intact Attention span and concentration: Intact Fund of knowledge: Unable to determine Mood: "Okay." Patient appears anxious, depressed, some mood lability noted Affect: Blunted DIAGNOSES: Schizophrenia, disorganized type, rule out Schizoaffective disorder, bipolar type, Cannabis use disorder, history of alcohol use disorder ASSESSMENT: The patient a 65-year-old woman with a long history of schizoaffective disorder presents after reportedly not continuing to take her medications. Patient denies suicidal and homicidal ideation and nursing is monitoring patient closely for comfort and safety. Patient has been taking Zyprexa 1 day and denies medication side effects, reiterates today she does not want to take injectable medication, social staff worker continues to pursue verification of last administration and medication effectiveness. implant coordinator is pursuing confirmation from patient's outpatient provider, [facility], as to medication effectiveness and when last given, has initiated contact with patient's [facility] nurse outreach case manager, and is also pursuing records from [facility], from where patient was reportedly recently discharged. In the interim, will continue to encourage patient to take medications. Will monitor patient's response to medication and for medication side effects, will evaluate patient safety and discharge readiness. Addendum: implant coordinator met with patient's nurse outreach case manager who encourage patient to sign an BANDAR for [facility]. implant coordinator made contact with [facility] who provided information on medications, however, did not provide information on medication effectiveness, discharge summary, or medication history. [facility] indicated that Invega Sustenna was not effective and patient was started on Haldol Decanoate, effectiveness of which remains unknown. Patient also apparently missed outpatient follow-up appointments at [facility], therefore, outpatient provider is unable to comment on medication effectiveness or side effects. Per [facility] report, verification was receiving the patient was discharged on Zyprexa 20 mg po q hs, will continue to titrate patient on medication. MANAGEMENT PLAN: Increase Zyprexa to 10 mg po q hs and 5 mg po q am with plan to titrate as tolerated by patient. Upon receiving confirmation from [facility], [place] of medication history/effectiveness and last dose provided, make medication adjustments/changes as indicated. Continue to encourage patient to receive injectable medication. Vitals every 4 hours Maintain safety precautions Encourage patient to attend groups and participate in unit programming to develop coping strategies Engage patient in discharge planning process and arrange meeting with support system to ensure safe discharge planning when appropriate Patient to follow up with PCM upon discharge TIME SPENT: 35 minutes. Vital Signs Vital Signs Date Time Temp Pulse Resp B/P Pulse Ox O2 Delivery O2 Flow Rate FiO2 12/13/16 17:13 85 105/56 12/13/16 06:11 98.0 18 12/12/16 06:21 Room Air Current Medications Current Medications Acetaminophen (Tylenol Tab) 650 mg Q6HP PRN PO HEADACHE or DISCOMFORT Last administered on 12/13/16 19:49; Start 12/06/16 at 04:00; Stop 01/05/17 at 03:59 Al Hydrox/Mg Hydrox/Simethicone (Mylanta) 30 ml Q4HP PRN PO HEARTBURN/ INDIGESTION Last administered on 12/12/16 02:21; Start 12/06/16 at 04:00; Stop 01/05/17 at 03:59 Albuterol Sulfate (Proventil, Ventolin Hfa) 2 puff Q4HP PRN INH SHORTNESS OF BREATH Last administered on 12/10/16 21:35; Start 12/06/16 at 13:15; Stop 01/05 at 13:14 Artificial Tears ([place] Tears) 2 drop TIDP PRN OU DRY EYES Last administered on 12/13/16 21:03; Start 12/08/16 at 16:30; Stop 01/07/17 at 16:29 Aspirin (Ecotrin) 81 mg DAILY PO Last administered on 12/13/16 08:19; Start at 09:00; Stop 01/06/17 at 08:59 Furosemide (Lasix) 40 mg DAILY PO Last administered on 12/13/16 08:19; Start 12/06/16 at 09:00; Stop 01/05/17 at 08:59 Home Med (Med Rec Complete!) ASDIRECTED XX ; Start 12/06/16 at 07:30; Stop at 07:31; Status DC Magnesium Hydroxide (Milk Of Magnesia) 30 ml DAILYPRN PRN PO CONSTIPATION; Start 12/06/16 at 04:00; Stop 01/05/17 at 03:59 Nicotine (Nicoderm Cq 21mg) 1 patch DAILY TD ; Start 12/06/16 at 09:00; Stop at 08:59 Olanzapine (ZyPREXA) 5 mg BID PO Last administered on 12/13/16 20:31; Start at 21:00; Stop 12/13/16 at 20:59; Status DC Olanzapine (ZyPREXA) 5 mg QAM PO ; Start 12/14/16 at 09:00; Stop 01/13/17 at 08: 59 Olanzapine (ZyPREXA) 5 mg QHS PO ; Start 12/08/16 at 21:00; Stop 12/09/16 at 08: 20; Status DC Olanzapine (ZyPREXA) 5 mg QHS PO ; Start 12/11/16 at 21:00; Stop 12/12/16 at 17: 41; Status DC Olanzapine (ZyPREXA) 7.5 mg QHS PO ; Start 12/09/16 at 21:00; Stop 12/10/16 at 13:18; Status DC Olanzapine (ZyPREXA) 10 mg QHS PO Last administered on 12/10/16 21:34; Start 12/10/16 at 21:00; Stop 12/11/16 at 20:25; Status DC Sodium Chloride ([place] Saline Nasal Gel) APPLY SMALL WALDEMAR... Q4HP PRN NA NASAL DRYNESS; Start 12/08/16 at 16:30; Stop 01/07/17 at 16:29 Sodium Chloride ([place] Nasal [place]) 2 spray Q2HP PRN NA NASAL DRYNESS Last administered on 12/10/16 15:02; Start 12/06/16 at 13:00; Stop 01/05/17 at 12:59 Trazodone HCl (Desyrel) 50 mg QHSP PRN PO INSOMNIA Last administered on 20:31; Start 12/06/16 at 04:00; Stop 01/05/17 at 03:59 Allergies Coded Allergies: No Known Allergies (Verified , 10/30/03) Celena Badillo Dec 13, 2016 21:42
[2016-12-14] MEDS ORDERED: OLANZapine ORAL DISINTEGRATING TAB 5MG PO ONE (05:30)
[2016-12-14] MEDS ORDERED: OLANZapine 5 MG TAB PO SCH (09:00)
[2016-12-14] MEDS: NICOTINE 21MG/24HR 1 EA TRANSDERMAL TD SCH (09:13)
[2016-12-14] MEDS: FUROSEMIDE 40 MG TAB PO SCH (09:13)
[2016-12-14] MEDS: ASPIRIN 81 MG ENTERIC TAB PO SCH (09:13)
[2016-12-14] MEDS: hydrOXYzine 25 MG TAB PO PRN (17:53)
[2016-12-14 18:00] VITALS: BP 148/86
--- NOTE | 2016-12-14 18:13 | IPNPDOC ---
[facility] Progress Note Progress Note DATE OF SERVICE: 12/14/16 HISTORY: Patient is 65-year-old female who was recently discharged from [facility] and found in hallway at [facility] complaining of needing shower and being hungry. Patient was initially treated at [facility] and then transferred to [facility], apparently stopped taking her medications after being discharged from [facility]. Executive Sales Assistant met with patient today to assess treatment progress on inpatient unit. Patient was scheduled to receive Zyprexa 10 mg last night but, per EMR, did not receive increased dose last night. Patient then received a one time now dose of Zyprexa 5 mg at 05:30 this morning due to being out of room yelling and naked, then received standing 5 mg dose at 09:30. Therefore, dosing is being shifted to Zyprexa 10 mg po q am and 5 mg po q hs with plan to continue titration as tolerated by patient. Patient has history of low blood pressure and unsteady gait. Executive Sales Assistant reminded nursing that vitals are to be monitored QID. At time of interaction patient was calm and cooperative, endorsed visual hallucinations earlier in day, made reference to feeling she is exposed to "radiation rays" on unit. Patient indicated she has been taking olanzapine and denied medication side effects. Per EMR patient's sleep was improved last night. Patient presented with reduced symptoms of anxiety and was less irritable during interaction today, was observed to be walking in hallways at times during the day, at other times resting in bed, has made attempts to attend groups. Patient denied experiencing symptoms of anxiety and depression at time of interaction, denied audiovisual hallucinations but appeared preoccupied, denied urge to engage in self-injurious behavior, and denied suicidal and homicidal ideation. Patient remains delusional and tangential, appeared to be responding to internal stimuli. Patient continues to state she will not take injectable medication. Per unit staff, patient has been eating and she remains visible on unit, presented with no signs of acute distress at time of interaction. VITAL SIGNS: See below. NEW TEST RESULTS: No new results. Labs on admission indicate elevated BUN, glucose and cholesterol. [facility] 12/05/16 labs indicate low RBC, hematocrit, lymphocytes and elevated neutrophils, MPV, glucose. Patient has history of appendectomy, hernia repair, exploratory laparoscopy, hyperlipidemia , migraine, HTN, COPD experiences chronic back pain and pain to left foot secondary to fracture of metatarsal bone post fall, uses orthopedic boot. Per [facility] records patient has history of low blood pressure. Patient exhibits tremor at rest. EKG 12/06/16 sinus rhythm Left foot x-ray fracture of metatarsal bone, per [facility] records CURRENT MEDICATIONS: See below. MENTAL STATUS EXAMINATION: Patient is 65-year-old female who is generally cooperative, is poor historian, is less disheveled today, dressed in hospital clothing, makes fair eye contact, ambulates with unsteady gait, exhibits resting tremor, appears stated age Speech: Pressured, of normal volume, was apparently yelling early this morning Thought processes: Remains tangential and disorganized, intermittently preoccupied, flight of ideas Thought content: Ongoing delusional thinking, bizarre Abstract reasoning, and computation: [place] thinking Description of associations: loose Description of abnormal or psychotic thoughts: Denies any suicidal or homicidal ideation. Denies any auditory or visual hallucinations at time of interaction but notes experienced this morning, appears to be responding to internal stimuli Judgment: Poor Insight: Poor Orientation: Alert and orientated 3 Recent and remote memory: Limited Attention span and concentration: Limited Fund of knowledge: Unable to determine Mood: "Okay." Patient appears anxious at times, depressed at times, some mood lability noted Affect: Blunted DIAGNOSES: Schizophrenia, disorganized type, rule out Schizoaffective disorder, bipolar type, Cannabis use disorder, history of alcohol use disorder ASSESSMENT: The patient a 65-year-old woman with a long history of schizoaffective disorder, presents after reportedly not continuing to take her medications. Patient denies suicidal and homicidal ideation and nursing is monitoring patient closely for comfort and safety. Patient denies medication side effects, reiterates today she does not want to take injectable medication, school social worker continues to pursue verification of medication history and effectiveness. blood bank coordinator has confirmed that patient did not present for outpatient medication management at [facility] post discharge from [facility]. blood bank coordinator has also initiated contact with patient's [facility] family preservation caseworker in effort to determine appropriate discharge plan. blood bank coordinator /community worker spoke with RN at [facility] who indicated Invega Sustenna was discontinued on 10/31/16 and patient was given Haldol Decanoate 100 mg IM on with next injection due on 12/19/16. blood bank coordinator continues to pursue [facility] provider contact information, discharge summary, and medication effectiveness information from [facility]. Verification was received that patient was discharged from [facility] on Zyprexa 20 mg po q hs, Cogentin 2 mg po q hs, and Depakote ER 1000 mg po q hs. This information is somewhat inconsistent with med reconciliation which indicates patient was discharged on Invega Sustenna, not Haldol Decanoate. Will continue to titrate patient on Zyprexa, with plan to reintroduce Depakote as tolerated patient and if appropriate. In the interim, will continue to encourage patient to take medications. Will monitor patient's response to medication and for medication side effects and will evaluate patient safety and discharge readiness. MANAGEMENT PLAN: Increase Zyprexa to 10 mg po q am and 5 mg po q hs with plan to titrate as tolerated by patient. Evaluate restart of Depakote. Continue trazodone 50 mg po hs PRN insomnia with plan to discontinue with titration of Zyprexa. Continue to encourage patient to receive injectable medication. Vitals every 4 hours Placed on fall precautions Maintain safety precautions Encourage patient to attend groups and participate in unit programming to develop coping strategies Engage patient in discharge planning process and arrange meeting with support system to ensure safe discharge planning when appropriate Patient to follow up with PCM upon discharge TIME SPENT: 35 minutes. Vital Signs Vital Signs Date Time Temp Pulse Resp B/P Pulse Ox O2 Delivery O2 Flow Rate FiO2 12/13/16 18:00 99.0 97 18 107/61 12/12/16 06:21 Room Air Current Medications Current Medications Acetaminophen (Tylenol Tab) 650 mg Q6HP PRN PO HEADACHE or DISCOMFORT Last administered on 12/13/16 19:49; Start 12/06/16 at 04:00; Stop 01/05/17 at 03:59 Al Hydrox/Mg Hydrox/Simethicone (Mylanta) 30 ml Q4HP PRN PO HEARTBURN/ INDIGESTION Last administered on 12/12/16 02:21; Start 12/06/16 at 04:00; Stop 01/05/17 at 03:59 Albuterol Sulfate (Proventil, Ventolin Hfa) 2 puff Q4HP PRN INH SHORTNESS OF BREATH Last administered on 12/10/16 21:35; Start 12/06/16 at 13:15; Stop 01/05 at 13:14 Artificial Tears ([place] Tears) 2 drop TIDP PRN OU DRY EYES Last administered on 12/13/16 21:03; Start 12/08/16 at 16:30; Stop 01/07/17 at 16:29 Aspirin (Ecotrin) 81 mg DAILY PO Last administered on 12/14/16 09:13; Start at 09:00; Stop 01/06/17 at 08:59 Furosemide (Lasix) 40 mg DAILY PO Last administered on 12/14/16 09:13; Start 12/06/16 at 09:00; Stop 01/05/17 at 08:59 Home Med (Med Rec Complete!) ASDIRECTED XX ; Start 12/06/16 at 07:30; Stop at 07:31; Status DC Hydroxyzine HCl (Atarax) 25 mg Q8HP PRN PO ANXIETY/AGITATION Last administered on 12/14/16 17:53; Start 12/14/16 at 18:00; Stop 01/13/17 at 17:59 Magnesium Hydroxide (Milk Of Magnesia) 30 ml DAILYPRN PRN PO CONSTIPATION; Start 12/06/16 at 04:00; Stop 01/05/17 at 03:59 Nicotine (Nicoderm Cq 21mg) 1 patch DAILY TD ; Start 12/06/16 at 09:00; Stop at 08:59 Olanzapine (ZyPREXA) 5 mg BID PO Last administered on 12/13/16 20:31; Start at 21:00; Stop 12/13/16 at 20:59; Status DC Olanzapine (ZyPREXA) 5 mg QAM PO Last administered on 12/14/16 09:13; Start at 09:00; Stop 12/14/16 at 18:09; Status DC Olanzapine (ZyPREXA) 5 mg QHS PO ; Start 12/08/16 at 21:00; Stop 12/09/16 at 08: 20; Status DC Olanzapine (ZyPREXA) 5 mg QHS PO ; Start 12/11/16 at 21:00; Stop 12/12/16 at 17: 41; Status DC Olanzapine (ZyPREXA) 5 mg QHS PO ; Start 12/14/16 at 21:00; Stop 01/13/17 at 20: 59; Status UNV Olanzapine (ZyPREXA) 7.5 mg QHS PO ; Start 12/09/16 at 21:00; Stop 12/10/16 at 13:18; Status DC Olanzapine (ZyPREXA) 10 mg QHS PO Last administered on 12/10/16 21:34; Start 12/10/16 at 21:00; Stop 12/11/16 at 20:25; Status DC Sodium Chloride ([place] Saline Nasal Gel) APPLY SMALL WALDEMAR... Q4HP PRN NA NASAL DRYNESS; Start 12/08/16 at 16:30; Stop 01/07/17 at 16:29 Sodium Chloride ([place] Nasal [place]) 2 spray Q2HP PRN NA NASAL DRYNESS Last administered on 12/10/16 15:02; Start 12/06/16 at 13:00; Stop 01/05/17 at 12:59 Trazodone HCl (Desyrel) 50 mg QHSP PRN PO INSOMNIA Last administered on 20:31; Start 12/06/16 at 04:00; Stop 01/05/17 at 03:59 Allergies Coded Allergies: No Known Allergies (Verified , 10/30/03) Celena Badillo Dec 14, 2016 18:13 Celena Badillo Dec 14, 2016 18:13 Celena Badillo Dec 14, 2016 18:13 Allergies Coded Allergies: No Known Allergies (Verified , 10/30/03) Celena Badillo Dec 14, 2016 18:13
[2016-12-14] MEDS: SODIUM CHLORIDE 0.9% NASAL GEL 15MG (AYR) PRN (20:21)
[2016-12-14] MEDS: OLANZapine 5 MG TAB PO SCH (20:21)
[2016-12-15 06:00] VITALS: BP 135/72
[2016-12-15] MEDS: FUROSEMIDE 40 MG TAB PO SCH (09:00)
[2016-12-15] MEDS: NICOTINE 21MG/24HR 1 EA TRANSDERMAL TD SCH (09:00)
[2016-12-15] MEDS: OLANZapine 10 MG TAB PO SCH ×2 (09:00→14:56)
[2016-12-15] MEDS: ASPIRIN 81 MG ENTERIC TAB PO SCH (09:00)
[2016-12-15] MEDS: hydrOXYzine 25 MG TAB PO PRN (14:10)
[2016-12-15] MEDS: ACETAMINOPHEN TAB 650MG DOSE (2X325MG) PO PRN (17:04)
[2016-12-15 18:00] VITALS: BP 113/55
[2016-12-15] MEDS: OLANZapine 5 MG TAB PO SCH (21:00)
[2016-12-16] MEDS: MAALOX 30 ML SUSP *UDC PO PRN (01:59)
[2016-12-16] MEDS: OLANZapine 10 MG TAB PO SCH (08:46)
[2016-12-16] MEDS: FUROSEMIDE 40 MG TAB PO SCH (08:46)
[2016-12-16] MEDS: ASPIRIN 81 MG ENTERIC TAB PO SCH (08:46)
[2016-12-16] MEDS: POLYVINYL ALCOHOL OPHTH SOLN 15 ML(LIQUITEARS) OU PRN (08:46)
[2016-12-16] MEDS: NICOTINE 21MG/24HR 1 EA TRANSDERMAL TD SCH (08:48)
[2016-12-16 10:00] VITALS: BP 118/59
[2016-12-16 18:00] VITALS: BP 118/82
[2016-12-16] MEDS: OLANZapine 5 MG TAB PO SCH (23:51)
[2016-12-16] MEDS: traZODone 50 MG TAB PO PRN (23:51)
[2016-12-17 06:50] VITALS: BP 121/82
[2016-12-17] MEDS: NICOTINE 21MG/24HR 1 EA TRANSDERMAL TD SCH (09:00)
[2016-12-17] MEDS: **PENDING PPD ENTRY XX SCH (09:00)
[2016-12-17] MEDS: FUROSEMIDE 40 MG TAB PO SCH (09:11)
[2016-12-17] MEDS: ASPIRIN 81 MG ENTERIC TAB PO SCH (09:11)
[2016-12-17] MEDS: OLANZapine 10 MG TAB PO SCH ×2 (09:53→21:00)
[2016-12-17] MEDS: ACETAMINOPHEN TAB 650MG DOSE (2X325MG) PO PRN (09:55)
[2016-12-17 12:01] VITALS: BP 130/88
--- NOTE | 2016-12-17 14:19 | IPNPDOC ---
[facility] Progress Note Progress Note DATE OF SERVICE: 12/17/16 HISTORY: Patient is 65-year-old female who was recently discharged from [facility] and found in hallway at [place] [facility] complaining of needing shower and being hungry. Patient was initially treated at [facility] and then transferred to [facility], apparently stopped taking her medications after being discharged from [facility]. Peer Educator met with patient today to assess treatment progress on inpatient unit. Patient has now been consistently taking Zyprexa 5 mg in the morning and 10 mg at night, vitals have remained stable and patient denies symptoms of lightheadedness, sedation, or dizziness. Patient has history of low blood pressure and unsteady gait, vitals to remain QID until patient is safely stabilized on medication. Patient states she feels medication is helping and reports reduced symptoms of audiovisual hallucinations , denies medication side effects. At time of interaction patient is calm and cooperative, more easily engaged, less distracted and does not appear to be responding to internal stimuli, appears less delusional and tangential. Per EMR patient has been struggling with sleep, however, patient reports she has been sleeping well. Patient presented with reduced symptoms of anxiety and was less irritable during interaction today, was observed to be walking in hallways at times during the day, at other times sitting in chair in room, has been attending some groups. Patient denied experiencing symptoms of anxiety and depression at time of interaction, denied audiovisual hallucinations but appeared preoccupied, denied urge to engage in self-injurious behavior, and denied suicidal and homicidal ideation. Patient continues to state she will not take injectable medication. Per unit staff, patient has been eating and she remains visible on unit, presented with no signs of acute distress at time of interaction. VITAL SIGNS: See below. NEW TEST RESULTS: No new results. Labs on admission indicate elevated BUN, glucose and cholesterol. [facility] 12/05/16 labs indicate low RBC, hematocrit, lymphocytes and elevated neutrophils, MPV, glucose. Patient has history of appendectomy, hernia repair, exploratory laparoscopy, hyperlipidemia , migraine, HTN, COPD experiences chronic back pain and pain to left foot secondary to fracture of metatarsal bone post fall, uses orthopedic boot. Per [facility] records patient has history of low blood pressure. Patient exhibits tremor at rest. EKG 12/06/16 sinus rhythm Left foot x-ray fracture of metatarsal bone, per [facility] records CURRENT MEDICATIONS: See below. MENTAL STATUS EXAMINATION: Patient is 65-year-old female who is generally cooperative, is poor historian, is less disheveled today, dressed in hospital clothing, makes improved eye contact, ambulates with unsteady gait, exhibits resting tremor, appears stated age Speech: Pressured, of normal volume, was apparently yelling early this morning but was able to regain composure and is calm now Thought processes: Remains tangential and disorganized, no preoccupations noted at time of interaction, flight of ideas Thought content: Reduced delusional thinking, bizarre Abstract reasoning, and computation: [place] thinking Description of associations: loose Description of abnormal or psychotic thoughts: Denies any suicidal or homicidal ideation. Denies any auditory or visual hallucinations, notes last experience last night, does not appear to be responding to internal stimuli Judgment: Poor Insight: Poor Orientation: Alert and orientated 3 Recent and remote memory: Limited Attention span and concentration: Limited Fund of knowledge: Unable to determine Mood: "Fine, pretty good." Patient appears less anxious at times, less depressed at times, some mood lability noted Affect: Blunted but brightens DIAGNOSES: Schizophrenia, disorganized type, rule out Schizoaffective disorder, bipolar type, Cannabis use disorder, history of alcohol use disorder ASSESSMENT: The patient a 65-year-old woman with a long history of schizoaffective disorder, presents after reportedly not continuing to take her medications. Patient denies suicidal and homicidal ideation and nursing is monitoring patient closely for comfort and safety. Patient denies medication side effects, reiterates today she does not want to take injectable medication, social media marketing specialist continues to pursue verification of medication history and effectiveness. sales account coordinator has confirmed that patient did not present for outpatient medication management at [facility] post discharge from [facility]. sales account coordinator has also initiated contact with patient's [facility] showcase maker in effort to determine appropriate discharge plan. sales account coordinator /house worker spoke with RN at [facility] who indicated Invega Sustenna was discontinued on 10/31/16 and patient was given Haldol Decanoate 100 mg IM on with next injection due on 12/19/16. sales account coordinator continues to pursue [facility] provider contact information, discharge summary, and medication effectiveness information from [facility]. Verification was received that patient was discharged from [facility] on Zyprexa 20 mg po q hs, Cogentin 2 mg po q hs, and Depakote ER 1000 mg po q hs. This information is somewhat inconsistent with med reconciliation which indicates patient was discharged on Invega Sustenna, not Haldol Decanoate. Will continue to titrate patient on Zyprexa, with plan to reintroduce Depakote as tolerated by patient and if appropriate. In the interim , will continue to encourage patient to take medications. Will monitor patient' s response to medication and for medication side effects and will evaluate patient safety and discharge readiness. MANAGEMENT PLAN: Increase Zyprexa to 10 mg po BID. continue hydroxyzine 25 mg po q 8 hours PRN anxiety/agitation. Evaluate restart of Depakote. Discontinue Trazodone. Continue to encourage patient to receive injectable medication. Vitals QID Placed on fall precautions Maintain safety precautions Encourage patient to attend groups and participate in unit programming to develop coping strategies Engage patient in discharge planning process and arrange meeting with support system to ensure safe discharge planning when appropriate Patient to follow up with PCM upon discharge TIME SPENT: 35 minutes. Vital Signs Vital Signs Date Time Temp Pulse Resp B/P Pulse Ox O2 Delivery O2 Flow Rate FiO2 12/17/16 12:01 98.7 84 18 130/88 12/12/16 06:21 Room Air Current Medications Current Medications Acetaminophen (Tylenol Tab) 650 mg Q6HP PRN PO HEADACHE or DISCOMFORT Last administered on 12/17/16 09:55; Start 12/06/16 at 04:00; Stop 01/05/17 at 03:59 Al Hydrox/Mg Hydrox/Simethicone (Mylanta) 30 ml Q4HP PRN PO HEARTBURN/ INDIGESTION Last administered on 12/16/16 01:59; Start 12/06/16 at 04:00; Stop 01/05/17 at 03:59 Albuterol Sulfate (Proventil, Ventolin Hfa) 2 puff Q4HP PRN INH SHORTNESS OF BREATH Last administered on 12/10/16 21:35; Start 12/06/16 at 13:15; Stop 01/05 at 13:14 Artificial Tears ([place] Tears) 2 drop TIDP PRN OU DRY EYES Last administered on 12/16/16 08:46; Start 12/08/16 at 16:30; Stop 01/07/17 at 16:29 Aspirin (Ecotrin) 81 mg DAILY PO Last administered on 12/17/16 09:11; Start at 09:00; Stop 01/06/17 at 08:59 Furosemide (Lasix) 40 mg DAILY PO Last administered on 12/17/16 09:11; Start at 09:00; Stop 01/05/17 at 08:59 Home Med (Med Rec Complete!) ASDIRECTED XX ; Start 12/06/16 at 07:30; Stop at 07:31; Status DC Hydroxyzine HCl (Atarax) 25 mg Q8HP PRN PO ANXIETY/AGITATION Last administered on 12/15/16 14:10; Start 12/14/16 at 18:00; Stop 01/13/17 at 17:59 Magnesium Hydroxide (Milk Of Magnesia) 30 ml DAILYPRN PRN PO CONSTIPATION; Start 12/06/16 at 04:00; Stop 01/05/17 at 03:59 Nicotine (Nicoderm Cq 21mg) 1 patch DAILY TD ; Start 12/06/16 at 09:00; Stop at 08:59 Olanzapine (ZyPREXA) 5 mg BID PO Last administered on 12/13/16 20:31; Start at 21:00; Stop 12/13/16 at 20:59; Status DC Olanzapine (ZyPREXA) 5 mg QAM PO Last administered on 12/14/16 09:13; Start at 09:00; Stop 12/14/16 at 18:09; Status DC Olanzapine (ZyPREXA) 5 mg QHS PO ; Start 12/08/16 at 21:00; Stop 12/09/16 at 08: 20; Status DC Olanzapine (ZyPREXA) 5 mg QHS PO ; Start 12/11/16 at 21:00; Stop 12/12/16 at 17: 41; Status DC Olanzapine (ZyPREXA) 5 mg QHS PO Last administered on 12/16/16 23:51; Start at 21:00; Stop 12/17/16 at 14:17; Status DC Olanzapine (ZyPREXA) 7.5 mg QHS PO ; Start 12/09/16 at 21:00; Stop 12/10/16 at 13:18; Status DC Olanzapine (ZyPREXA) 10 mg BID PO ; Start 12/17/16 at 21:00; Stop 01/16/17 at 20: 59 Olanzapine (ZyPREXA) 10 mg QAM PO Last administered on 12/17/16 09:53; Start at 09:00; Stop 12/17/16 at 14:17; Status DC Olanzapine (ZyPREXA) 10 mg QHS PO Last administered on 12/10/16 21:34; Start 12/10/16 at 21:00; Stop 12/11/16 at 20:25; Status DC Sodium Chloride ([place] Saline Nasal Gel) APPLY SMALL WALDEMAR... Q4HP PRN NA NASAL DRYNESS Last administered on 12/14/16 20:21; Start 12/08/16 at 16:30; Stop at 16:29 Sodium Chloride ([place] Nasal [place]) 2 spray Q2HP PRN NA NASAL DRYNESS Last administered on 12/10/16 15:02; Start 12/06/16 at 13:00; Stop 01/05/17 at 12:59 Trazodone HCl (Desyrel) 50 mg QHSP PRN PO INSOMNIA Last administered on 23:51; Start 12/06/16 at 04:00; Stop 01/05/17 at 03:59 Allergies Coded Allergies: No Known Allergies (Verified , 10/30/03) Celena Badillo Dec 17, 2016 14:19 Celena Badillo Dec 17, 2016 14:19
[2016-12-17] MEDS: SODIUM CHLORIDE 0.9% NASAL GEL 15MG (AYR) PRN (16:49)
[2016-12-17 18:00] VITALS: BP 122/78
[2016-12-18 06:10] VITALS: BP 89/55
[2016-12-18] MEDS: NICOTINE 21MG/24HR 1 EA TRANSDERMAL TD SCH (09:00)
[2016-12-18] MEDS: **PENDING PPD ENTRY XX SCH (09:00)
[2016-12-18] MEDS: FUROSEMIDE 40 MG TAB PO SCH (09:43)
[2016-12-18] MEDS: OLANZapine 10 MG TAB PO SCH ×2 (09:43→21:00)
[2016-12-18] MEDS: ASPIRIN 81 MG ENTERIC TAB PO SCH (09:43)
[2016-12-18] MEDS ORDERED: TUBERCULIN PPD 5 UNITS/0.1 ML ID ONE (10:00)
[2016-12-18] MEDS: SODIUM CHLORIDE 0.9% NASAL GEL 15MG (AYR) PRN (10:14)
[2016-12-18 12:00] VITALS: BP 124/78
[2016-12-18] MEDS: ACETAMINOPHEN TAB 650MG DOSE (2X325MG) PO PRN (16:34)
--- NOTE | 2016-12-18 17:54 | IPNPDOC ---
[facility] Progress Note Progress Note DATE OF SERVICE: 12/18/16 HISTORY: Patient is 65-year-old female who was recently discharged from [facility] and found in hallway at [place] police station complaining of needing shower and being hungry. Patient was initially treated at [facility] and then transferred to [facility], apparently stopped taking her medications after being discharged from [place]. Avionics System Engineer met with patient today to assess treatment progress on inpatient unit. Patient has now been consistently taking Zyprexa 10 mg BID X one day, vitals low this am but have since stabilized and are within normal limits. Patient denies symptoms of lightheadedness, sedation, and dizziness. Patient has history of low blood pressure and unsteady gait, vitals to remain QID until patient is safely stabilized on medication. Patient states she feels medication is helping and reports reduced symptoms of audiovisual hallucinations, denies medication side effects. At time of interaction patient is calm and cooperative, more easily engaged, less distracted. However, patient is observed at other times during day to be disorganized, delusional commenting on "the spirits trying to get into her head," and responding to internal stimuli. Patient's sleep was improved last night per EMR. Patient reports ongoing symptoms of anxiety, was less irritable at time of interaction today but continues to exhibit periods of anxiety/agitation, was observed to be attending groups at times today, at other times was resting in room. Patient denied experiencing symptoms of anxiety and depression at time of interaction, denied audiovisual hallucinations but appeared preoccupied, denied urge to engage in self-injurious behavior, and denied suicidal and homicidal ideation. Patient continues to state she will not take injectable medication. Per unit staff, patient has been eating and she remains visible on unit, presented with no signs of acute distress at time of interaction. [place] medical records received today. Records indicate patient displayed garbled speech existed even when patient not taking psychotropic medication. Per discharge records, patient is due for Haldol Decanoate injection tomorrow, . Discharge verification of medication regimen information has been received, discharge summary indicates patient had multiple medication trials with little success but positive response to Depakote, Zyprexa Zydis, Haldol Decanoate, and Cogentin prior to discharge. VITAL SIGNS: See below. NEW TEST RESULTS: No new results. Labs on admission indicate elevated BUN, glucose and cholesterol. [facility] 12/05/16 labs indicate low RBC, hematocrit, lymphocytes and elevated neutrophils, MPV, glucose. Patient has history of appendectomy, hernia repair, exploratory laparoscopy, hyperlipidemia , migraine, HTN, COPD experiences chronic back pain and pain to left foot secondary to fracture of metatarsal bone post fall, uses orthopedic boot. Per [facility] records patient has history of low blood pressure. Patient exhibits tremor at rest. EKG 12/06/16 sinus rhythm Left foot x-ray fracture of metatarsal bone, per [facility] records [facility] records received today, indicated history of type 2 diabetes and edema CURRENT MEDICATIONS: See below. MENTAL STATUS EXAMINATION: Patient is 65-year-old female who is generally cooperative, is poor historian, is less disheveled today, dressed in hospital clothing, makes fair eye contact, ambulates with unsteady gait, exhibits resting tremor, appears stated age Speech: Pressured, of normal volume, was apparently yelling early this morning but was able to regain composure and is calm now Thought processes: Remains tangential and disorganized, no preoccupations noted at time of interaction, flight of ideas Thought content: Delusional thinking, bizarre Abstract reasoning: [place] thinking Description of associations: Loose, flight of ideas Description of abnormal or psychotic thoughts: Denies any suicidal or homicidal ideation. Denies any auditory or visual hallucinations but endorses seeing spirits earlier in day, does not appear to be responding to internal stimuli at time of interaction but is observed to be internally preoccupied at other times Judgment: Poor Insight: Poor Orientation: Alert and orientated 3 Recent and remote memory: Limited Attention span and concentration: Limited Fund of knowledge: Unable to determine Mood: "Okay, I need to get home to take care of my cat to." Patient appears anxious, less depressed, mood lability noted Affect: Blunted but brightens DIAGNOSES: Schizophrenia, disorganized type, rule out Schizoaffective disorder, bipolar type, Cannabis use disorder, history of alcohol use disorder ASSESSMENT: The patient a 65-year-old woman with a long history of schizoaffective disorder, presents after reportedly not continuing to take her medications. Patient denies suicidal and homicidal ideation and nursing is monitoring patient closely for comfort and safety. Patient denies medication side effects, reiterates today she does not want to take injectable medication, social worker health services continues to pursue verification of medication history and effectiveness. container coordinator has confirmed that patient did not present for outpatient medication management at [facility] post discharge from [facility]. container coordinator has also initiated contact with patient's [facility] caser shoe parts in effort to determine appropriate discharge plan. container coordinator /bridge gang worker spoke with RN at [facility] who indicated Invega Sustenna was discontinued on 10/31/16 and patient was given Haldol Decanoate 100 mg IM on with next injection due tomorrow, 12/19/16. container coordinator continues to pursue [facility] provider contact information and medication effectiveness information from [facility]. Verification was received that patient was discharged from [facility] on Zyprexa 20 mg po q hs, Cogentin 2 mg po q hs, and Depakote ER 1000 mg po q hs. This information is somewhat inconsistent with med reconciliation which indicates patient was discharged on Invega Sustenna, not Haldol Decanoate. Will continue to titrate patient on Zyprexa, with plan to reintroduce Depakote as tolerated by patient and if appropriate. In the interim , will continue to encourage patient to take medications. Will monitor patient' s response to medication and for medication side effects and will evaluate patient safety and discharge readiness. MANAGEMENT PLAN: Continue Zyprexa 10 mg po BID. continue hydroxyzine 25 mg po q 8 hours PRN anxiety/agitation. Evaluate restart of Depakote. Discontinue Trazodone. Encourage patient to receive Haldol Decanoate 100 mg IM tomorrow, 12/19/16, due date per [facility] records Vitals QID Placed on fall precautions Maintain safety precautions Encourage patient to attend groups and participate in unit programming to develop coping strategies Engage patient in discharge planning process and arrange meeting with support system to ensure safe discharge planning when appropriate Patient to follow up with PCM upon discharge TIME SPENT: 35 minutes. Vital Signs Vital Signs Date Time Temp Pulse Resp B/P Pulse Ox O2 Delivery O2 Flow Rate FiO2 12/18/16 12:00 97.2 80 18 124/78 12/18/16 06:10 Room Air Current Medications Current Medications Acetaminophen (Tylenol Tab) 650 mg Q6HP PRN PO HEADACHE or DISCOMFORT Last administered on 12/18/16t 16:34; Start 12/06/16 at 04:00; Stop 01/05/17 at 03:59 Al Hydrox/Mg Hydrox/Simethicone (Mylanta) 30 ml Q4HP PRN PO HEARTBURN/ INDIGESTION Last administered on 12/16/16 01:59; Start 12/06/16 at 04:00; Stop 01/05/17 at 03:59 Albuterol Sulfate (Proventil, Ventolin Hfa) 2 puff Q4HP PRN INH SHORTNESS OF BREATH Last administered on 12/10/16 21:35; Start 12/06/16 at 13:15; Stop 01/05 at 13:14 Artificial Tears ([place] Tears) 2 drop TIDP PRN OU DRY EYES Last administered on 12/16/16 08:46; Start 12/08/16 at 16:30; Stop 01/07/17 at 16:29 Aspirin (Ecotrin) 81 mg DAILY PO Last administered on 12/18/16 09:43; Start at 09:00; Stop 01/06/17 at 08:59 Furosemide (Lasix) 40 mg DAILY PO Last administered on 12/18/16 09:43; Start at 09:00; Stop 01/05/17 at 08:59 Home Med (Med Rec Complete!) ASDIRECTED XX ; Start 12/06/16 at 07:30; Stop at 07:31; Status DC Hydroxyzine HCl (Atarax) 25 mg Q8HP PRN PO ANXIETY/AGITATION Last administered on 12/15/16 14:10; Start 12/14/16 at 18:00; Stop 01/13/17 at 17:59 Magnesium Hydroxide (Milk Of Magnesia) 30 ml DAILYPRN PRN PO CONSTIPATION; Start 12/06/16 at 04:00; Stop 01/05/17 at 03:59 Nicotine (Nicoderm Cq 21mg) 1 patch DAILY TD ; Start 12/06/16 at 09:00; Stop at 08:59 Non-Formulary Medication ( See Comment Field Below ) SEE COMMENTS SECTION 1T @10 XX ; Start 12/19/16 at 10:00; Stop 12/20/16 at 09:59; Status UNV Non-Formulary Medication ( See Comment Field Below ) SEE LABEL COMMENTS DAILY XX ; Start 12/17/16 at 09:00; Stop 01/16/17 at 08:59 Olanzapine (ZyPREXA) 5 mg BID PO Last administered on 12/13/16 20:31; Start at 21:00; Stop 12/13/16 at 20:59; Status DC Olanzapine (ZyPREXA) 5 mg QAM PO Last administered on 12/14/16 09:13; Start at 09:00; Stop 12/14/16 at 18:09; Status DC Olanzapine (ZyPREXA) 5 mg QHS PO ; Start 12/08/16 at 21:00; Stop 12/09/16 at 08: 20; Status DC Olanzapine (ZyPREXA) 5 mg QHS PO ; Start 12/11/16 at 21:00; Stop 12/12/16 at 17: 41; Status DC Olanzapine (ZyPREXA) 5 mg QHS PO Last administered on 12/16/16 23:51; Start at 21:00; Stop 12/17/16 at 14:17; Status DC Olanzapine (ZyPREXA) 7.5 mg QHS PO ; Start 12/09/16 at 21:00; Stop 12/10/16 at 13:18; Status DC Olanzapine (ZyPREXA) 10 mg BID PO Last administered on 12/18/16 09:43; Start at 21:00; Stop 01/16/17 at 20:59 Olanzapine (ZyPREXA) 10 mg QAM PO Last administered on 12/17/16 09:53; Start at 09:00; Stop 12/17/16 at 14:17; Status DC Olanzapine (ZyPREXA) 10 mg QHS PO Last administered on 12/10/16 21:34; Start 12/10/16 at 21:00; Stop 12/11/16 at 20:25; Status DC Sodium Chloride ([place] Saline Nasal Gel) APPLY SMALL WALDEMAR... Q4HP PRN NA NASAL DRYNESS Last administered on 12/18/16 10:14; Start 12/08/16 at 16:30; Stop 01/07 at 16:29 Sodium Chloride ([place] Nasal [place]) 2 spray Q2HP PRN NA NASAL DRYNESS Last administered on 12/10/16 15:02; Start 12/06/16 at 13:00; Stop 01/05/17 at 12:59 Trazodone HCl (Desyrel) 50 mg QHSP PRN PO INSOMNIA Last administered on 23:51; Start 12/06/16 at 04:00; Stop 12/17/16 at 17:16; Status DC Allergies Coded Allergies: No Known Allergies (Verified , 10/30/03) Celena Badillo Dec 18, 2016 17:54
[2016-12-18 18:00] VITALS: BP 111/63
[2016-12-19] MEDS: OLANZapine 10 MG TAB PO SCH ×3 (02:33→20:45)
[2016-12-19] MEDS: **PENDING PPD ENTRY XX SCH (09:00)
[2016-12-19] MEDS: NICOTINE 21MG/24HR 1 EA TRANSDERMAL TD SCH (09:00)
[2016-12-19] MEDS: ASPIRIN 81 MG ENTERIC TAB PO SCH (09:10)
[2016-12-19] MEDS: FUROSEMIDE 40 MG TAB PO SCH (09:10)
--- NOTE | 2016-12-19 09:58 | IPNPDOC ---
[facility] Progress Note Progress Note DATE OF SERVICE: 12/19/16 HISTORY: Patient is 65-year-old female who was recently discharged from [facility] and found in hallway at [place] police station complaining of needing shower and being hungry. Patient was initially treated at [facility] and then transferred to [facility], apparently stopped taking her medications after being discharged from [place]. Director Vaccine met with patient today to assess treatment progress on inpatient unit. Patient has now been consistently taking Zyprexa 10 mg BID X two days. vitals within normal limits this morning. Patient denies symptoms of lightheadedness, sedation, and dizziness. Patient has history of low blood pressure and unsteady gait, vitals to remain QID until patient is safely stabilized on medication. Patient states she feels medication is helping , reports reduced symptoms of audiovisual hallucinations, denies medication side effects at time of initial interaction, however, on follow-up later in afternoon patient reports feeling "shaky." In addition, staff have noted what may be symptoms of akathisia, intermittent rigidity, intermittent garbled speech , intermittent challenges with swallowing, no cogwheeling noted. Patient is agreeable to addition of Cogentin in effort to correct symptoms. At time of interaction patient is calm and cooperative, more easily engaged, less distracted, has showered and tended to her ADLs. Patient's mood remains labile and is dysphoric, is agreeable to restart of low-dose Depakote in effort to stabilize mood. Patient is observed at times during day to be disorganized, delusional with belief that there is a spectrum radiating from her head and that spirits are trying to get into her head, and responding to internal stimuli. Patient slept 5 hours last night per EMR, denies anxiety time of interaction, was less irritable at time of interaction today but continues to exhibit periods of anxiety/agitation, was observed to be attending groups at times today, at other times was resting in room. Patient denied audiovisual hallucinations but appeared preoccupied, denied urge to engage in self- injurious behavior, and denied suicidal and homicidal ideation. Patient continues to state she will not take injectable medication. Per unit staff, patient has been eating and she remains visible on unit, presented with no signs of acute distress at time of interaction. [place] medical records received today. Records indicate patient displayed garbled speech existed even when patient not taking psychotropic medication. Per discharge records, patient is due for Haldol Decanoate injection tomorrow, . Discharge verification of medication regimen information has been received, discharge summary indicates patient had multiple medication trials with little success but positive response to Depakote, Zyprexa Zydis, Haldol Decanoate, and Cogentin prior to discharge. VITAL SIGNS: See below. NEW TEST RESULTS: No new results. Labs on admission indicate elevated BUN, glucose and cholesterol. [facility] 12/05/16 labs indicate low RBC, hematocrit, lymphocytes and elevated neutrophils, MPV, glucose. Patient has history of appendectomy, hernia repair, exploratory laparoscopy, hyperlipidemia , migraine, HTN, COPD experiences chronic back pain and pain to left foot secondary to fracture of metatarsal bone post fall, uses orthopedic boot. Per [facility] records patient has history of low blood pressure. Patient exhibits tremor at rest. EKG 12/06/16 sinus rhythm Left foot x-ray fracture of metatarsal bone, per [facility] records [facility] records received today, indicated history of type 2 diabetes and edema CURRENT MEDICATIONS: See below. MENTAL STATUS EXAMINATION: Patient is 65-year-old female who is generally cooperative, is poor historian, is less disheveled today and has showered and tended to her ADLs, dressed in hospital clothing, makes improved eye contact, ambulates with unsteady gait, exhibits resting tremor, appears stated age Speech: Pressured, of normal volume, was apparently yelling early this morning but was able to regain composure and is calm now Thought processes: Remains tangential and disorganized, no preoccupations noted at time of interaction, flight of ideas Thought content: Delusional thinking, bizarre Abstract reasoning: [place] thinking Description of associations: Loose, flight of ideas Description of abnormal or psychotic thoughts: Denies any suicidal or homicidal ideation. Denies any auditory or visual hallucinations but endorses seeing spirits earlier in day, does not appear to be responding to internal stimuli at time of interaction but is observed to be internally preoccupied at other times Judgment: Poor Insight: Poor Orientation: Alert and orientated 3 Recent and remote memory: Limited Attention span and concentration: Limited Fund of knowledge: Unable to determine Mood: "Okay, I'm feeling a little better today." Patient appears less anxious, less depressed, mood lability noted Affect: Blunted but brightens DIAGNOSES: Schizophrenia, disorganized type, rule out Schizoaffective disorder, bipolar type, Cannabis use disorder, history of alcohol use disorder ASSESSMENT: The patient a 65-year-old woman with a long history of schizoaffective disorder, presents after reportedly not continuing to take her medications. Patient denies suicidal and homicidal ideation and nursing is monitoring patient closely for comfort and safety. Patient denies medication side effects, reiterates today she does not want to take injectable medication, social security benefits interviewer continues to pursue verification of medication history and effectiveness. accounts receivable coordinator has confirmed that patient did not present for outpatient medication management at [facility] post discharge from [facility]. accounts receivable coordinator has also initiated contact with patient's [facility] nurse case manager in effort to determine appropriate discharge plan. accounts receivable coordinator /asphalt plant worker spoke with RN at [facility] who indicated Invega Sustenna was discontinued on 10/31/16 and patient was given Haldol Decanoate 100 mg IM on with next injection due tomorrow, 12/19/16. Clinical consults completed and Haldol Decanoate injection not recommended at this time, was scheduled to receive Haldol Decanoate 100 mg IM 12/19/16, per [facility] discharge records. accounts receivable coordinator continues to pursue [place] provider contact information and medication effectiveness information from [place]. Verification was received that patient was discharged from [place] on Zyprexa 20 mg po q hs, Cogentin 2 mg po q hs, and Depakote ER 1000 mg po q hs. This information is somewhat inconsistent with med reconciliation which indicates patient was discharged on Invega Sustenna, not Haldol Decanoate. Will continue to titrate monitor patient's response to Zyprexa, will initiate Cogentin to address EPS symptoms, and will initiate Depakote in effort to stabilize mood. In the interim, will continue to encourage patient to take medications. Will monitor patient's response to medication and for medication side effects and will evaluate patient safety and discharge readiness. MANAGEMENT PLAN: Initiate med trial Cogentin 0.5 mg po q am and 1 mg po q hs, initiate Depakote ER 250 mg po q hs. Continue Zyprexa 10 mg po BID and hydroxyzine 25 mg po q 8 hours PRN anxiety/agitation. Evaluate restart of Depakote. Discontinue Trazodone. Vitals QID Placed on fall precautions Maintain safety precautions Encourage patient to attend groups and participate in unit programming to develop coping strategies Engage patient in discharge planning process and arrange meeting with support system to ensure safe discharge planning when appropriate Patient to follow up with PCM upon discharge TIME SPENT: 35 minutes. Vital Signs Vital Signs Date Time Temp Pulse Resp B/P Pulse Ox O2 Delivery O2 Flow Rate FiO2 12/18/16 18:00 98.0 88 16 111/63 12/18/16 06:10 Room Air Current Medications Current Medications Acetaminophen (Tylenol Tab) 650 mg Q6HP PRN PO HEADACHE or DISCOMFORT Last administered on 12/18/16 16:34; Start 12/06/16 at 04:00; Stop 01/05/17 at 03:59 Al Hydrox/Mg Hydrox/Simethicone (Mylanta) 30 ml Q4HP PRN PO HEARTBURN/ INDIGESTION Last administered on 12/16/16 01:59; Start 12/06/16 at 04:00; Stop 01/05/17 at 03:59 Albuterol Sulfate (Proventil, Ventolin Hfa) 2 puff Q4HP PRN INH SHORTNESS OF BREATH Last administered on 12/10/16 21:35; Start 12/06/16 at 13:15; Stop 01/05 at 13:14 Artificial Tears ([place] Tears) 2 drop TIDP PRN OU DRY EYES Last administered on 12/16/16 08:46; Start 12/08/16 at 16:30; Stop 01/07/17 at 16:29 Aspirin (Ecotrin) 81 mg DAILY PO Last administered on 12/19/16 09:10; Start at 09:00; Stop 01/06/17 at 08:59 Furosemide (Lasix) 40 mg DAILY PO Last administered on 12/19/16 09:10; Start at 09:00; Stop 01/05/17 at 08:59 Home Med (Med Rec Complete!) ASDIRECTED XX ; Start 12/06/16 at 07:30; Stop at 07:31; Status DC Hydroxyzine HCl (Atarax) 25 mg Q8HP PRN PO ANXIETY/AGITATION Last administered on 12/15/16 14:10; Start 12/14/16 at 18:00; Stop 01/13/17 at 17:59 Magnesium Hydroxide (Milk Of Magnesia) 30 ml DAILYPRN PRN PO CONSTIPATION; Start 12/06/16 at 04:00; Stop 01/05/17 at 03:59 Nicotine (Nicoderm Cq 21mg) 1 patch DAILY TD ; Start 12/06/16 at 09:00; Stop at 08:59 Non-Formulary Medication ( See Comment Field Below ) SEE COMMENTS SECTION 1T @10 XX ; Start 12/19/16 at 10:00; Stop 12/19/16 at 10:00; Status DC Non-Formulary Medication ( See Comment Field Below ) SEE LABEL COMMENTS DAILY XX ; Start 12/17/16 at 09:00; Stop 01/16/17 at 08:59 Olanzapine (ZyPREXA) 5 mg BID PO Last administered on 12/13/16 20:31; Start at 21:00; Stop 12/13/16 at 20:59; Status DC Olanzapine (ZyPREXA) 5 mg QAM PO Last administered on 12/14/16 09:13; Start at 09:00; Stop 12/14/16 at 18:09; Status DC Olanzapine (ZyPREXA) 5 mg QHS PO ; Start 12/08/16 at 21:00; Stop 12/09/16 at 08: 20; Status DC Olanzapine (ZyPREXA) 5 mg QHS PO ; Start 12/11/16 at 21:00; Stop 12/12/16 at 17: 41; Status DC Olanzapine (ZyPREXA) 5 mg QHS PO Last administered on 12/16/16 23:51; Start at 21:00; Stop 12/17/16 at 14:17; Status DC Olanzapine (ZyPREXA) 7.5 mg QHS PO ; Start 12/09/16 at 21:00; Stop 12/10/16 at 13:18; Status DC Olanzapine (ZyPREXA) 10 mg BID PO Last administered on 12/19/16 09:10; Start at 21:00; Stop 01/16/17 at 20:59 Olanzapine (ZyPREXA) 10 mg QAM PO Last administered on 12/17/16 09:53; Start at 09:00; Stop 12/17/16 at 14:17; Status DC Olanzapine (ZyPREXA) 10 mg QHS PO Last administered on 12/10/16 21:34; Start 12/10/16 at 21:00; Stop 12/11/16 at 20:25; Status DC Sodium Chloride ([place] Saline Nasal Gel) APPLY SMALL WALDEMAR... Q4HP PRN NA NASAL DRYNESS Last administered on 12/18/16 10:14; Start 12/08/16 at 16:30; Stop 01/07 at 16:29 Sodium Chloride ([place] Nasal [place]) 2 spray Q2HP PRN NA NASAL DRYNESS Last administered on 12/10/16 15:02; Start 12/06/16 at 13:00; Stop 01/05/17 at 12:59 Trazodone HCl (Desyrel) 50 mg QHSP PRN PO INSOMNIA Last administered on 23:51; Start 12/06/16 at 04:00; Stop 12/17/16 at 17:16; Status DC Allergies Coded Allergies: No Known Allergies (Verified , 10/30/03) Celena Badillo Dec 19, 2016 09:58
[2016-12-19] MEDS ORDERED: PPD DOCUMENTATION ENTRY MISC XX SCH (10:00)
[2016-12-19 12:24] VITALS: BP 113/72
[2016-12-19] MEDS ORDERED: BENZTROPINE 1 MG TAB PO ONE (16:00)
[2016-12-19 18:08] VITALS: BP 105/63
[2016-12-19 21:00] VITALS: BP 122/74
[2016-12-19] MEDS ORDERED: BENZTROPINE 1 MG TAB PO PRN (21:00)
[2016-12-19] MEDS ORDERED: DIVALPROEX 250MG *ER* TAB PO SCH (21:00)
[2016-12-19] MEDS: MAALOX 30 ML SUSP *UDC PO PRN (22:46)
[2016-12-20] MEDS ORDERED: BENZTROPINE 0.5 MG TAB As Ordered ONE (06:24)
[2016-12-20] MEDS: BENZTROPINE 0.5 MG TAB PO SCH (06:25)
[2016-12-20 06:27] VITALS: BP 105/67
[2016-12-20] MEDS: FUROSEMIDE 40 MG TAB PO SCH (09:00)
[2016-12-20] MEDS: NICOTINE 21MG/24HR 1 EA TRANSDERMAL TD SCH (09:00)
[2016-12-20] MEDS: **PENDING PPD ENTRY XX SCH (09:00)
[2016-12-20] MEDS: ASPIRIN 81 MG ENTERIC TAB PO SCH (09:00)
[2016-12-20] MEDS: OLANZapine 10 MG TAB PO SCH (09:00)
[2016-12-20] MEDS: ALBUTEROL 90 MCG/ACT 8GM HFA INHALER INH PRN (09:09)
[2016-12-20] MEDS ORDERED: HALOPERIDOL 2 MG TAB PO ONE (13:15)
--- NOTE | 2016-12-20 16:27 | IPNPDOC ---
[facility] Progress Note Progress Note DATE OF SERVICE: 12/20/16 HISTORY: Patient is 65-year-old female who was recently discharged from [facility] and found in hallway at [facility] station complaining of needing shower and being hungry. Patient was initially treated at [facility] and then transferred to [facility], apparently stopped taking her medications after being discharged from [place]. Tile Decorator met with patient today to assess treatment progress on inpatient unit. Patient refused Zyprexa 10 mg last night and this morning, presents with increased symptoms of psychosis, delusional thinking, increased anxiety and agitation, is observed to be yelling in room at times, remains generally redirectable. Patient was provided with 1 time dose of Haldol 2 mg this afternoon with plan to add standing am dose, was agreeable to taking her first dose of Depakote ER 4 restart last night, is agreeable to dose increase tonight. Patient states she no longer wants takes Zyprexa noting "I don 't like the way it makes me feel and the Amish veterinary medicine scientist label it as something else," however, is unable to provide specific information as to what medication side effects she is experiencing. Patient continues to deny symptoms of lightheadedness, sedation, and dizziness. Patient has history of low blood pressure and unsteady gait, vitals to remain QID until patient is safely stabilized on medication. Patient reports reduced symptoms of audiovisual hallucinations, however, is observed to be responding to internal stimuli. Patient makes no complaints related to "shaky" sensation reported yesterday, and staff deny observation of akathisia, intermittent rigidity, garbled speech, challenges with swallowing, no cogwheeling noted. Patient has been taking Cogentin with good effect reported. At time of interaction patient is calm and cooperative, engageable but appears distracted, states she has to showered but appears more disheveled today. Patient's mood is labile and dysphoric, stating, "the michael across the colon stole my Bible" (Bible noted to be on patient's desk). Patient is observed at times during day to be disorganized, delusional, reduced sleep last night, reports increase in symptoms of anxiety and depression, was observed to be attending groups at times today, at other times was resting in room. Patient denied audiovisual hallucinations but appeared preoccupied, denied urge to engage in self-injurious behavior, and denied suicidal and homicidal ideation. Patient continues to state she will not take injectable medication. Per unit staff, patient has been eating and she remains visible on unit, presented with no signs of acute distress at time of interaction. [facility] medical records received today. Records indicate patient displayed garbled speech existed even when patient not taking psychotropic medication. Per discharge records, patient is due for Haldol Decanoate injection tomorrow, . Discharge verification of medication regimen information has been received, discharge summary indicates patient had multiple medication trials with little success but positive response to Depakote, Zyprexa Zydis, Haldol Decanoate, and Cogentin prior to discharge. VITAL SIGNS: See below. NEW TEST RESULTS: No new results. Labs on admission indicate elevated BUN, glucose and cholesterol. [facility] 12/05/16 labs indicate low RBC, hematocrit, lymphocytes and elevated neutrophils, MPV, glucose. Patient has history of appendectomy, hernia repair, exploratory laparoscopy, hyperlipidemia , migraine, HTN, COPD experiences chronic back pain and pain to left foot secondary to fracture of metatarsal bone post fall, uses orthopedic boot. Per [facility] records patient has history of low blood pressure. Patient exhibits tremor at rest. EKG 12/06/16 sinus rhythm Left foot x-ray fracture of metatarsal bone, per [facility] records [facility] records received today, indicated history of type 2 diabetes and edema CURRENT MEDICATIONS: See below. MENTAL STATUS EXAMINATION: Patient is 65-year-old female who is generally cooperative, is poor historian, is more disheveled today, dressed in hospital clothing, makes fair eye contact, ambulates with unsteady gait, exhibits resting tremor, appears stated age Speech: Pressured, of normal volume, was apparently yelling early this morning but was able to regain composure and is calm now Thought processes: Remains tangential and disorganized, appears preoccupied, flight of ideas Thought content: Delusional thinking, bizarre Abstract reasoning: [place] thinking Description of associations: Loose, flight of ideas Description of abnormal or psychotic thoughts: Denies any suicidal or homicidal ideation. Denies any auditory or visual hallucinations but endorses seeing spirits at times, appears preoccupied and responding to internal stimuli at time of interaction Judgment: Poor Insight: Poor Orientation: Alert and orientated 3 Recent and remote memory: Limited Attention span and concentration: Limited Fund of knowledge: Unable to determine Mood: "I'm not taking the medication today, the Amish scientists label it as something else." Patient appears more anxious, more depressed, mood lability noted Affect: Blunted DIAGNOSES: Schizophrenia, disorganized type, rule out Schizoaffective disorder, bipolar type, Cannabis use disorder, history of alcohol use disorder ASSESSMENT: The patient a 65-year-old woman with a long history of schizoaffective disorder, presents after reportedly not continuing to take her medications. Patient denies suicidal and homicidal ideation and nursing is monitoring patient closely for comfort and safety. Patient denies medication side effects, reiterates today she does not want to take injectable medication. public policy coordinator has confirmed that patient did not present for outpatient medication management at [facility] post discharge from [facility]. public policy coordinator has also initiated contact with patient's [facility] continuous pillowcase cutter in effort to determine appropriate discharge plan. public policy coordinator/yard warehouse worker spoke with RN at [facility] who indicated Invega Sustenna was discontinued on 10/31/16 and patient was given Haldol Decanoate 100 mg IM on with next injection due tomorrow, 12/19/16. Clinical consults completed and Haldol Decanoate injection not recommended at this time, was scheduled to receive Haldol Decanoate 100 mg IM 12/19/16, per [facility] discharge records. Verification was received that patient was discharged from [facility] on Zyprexa Zydis 20 mg po q hs, Cogentin 2 mg po q hs, and Depakote ER 1000 mg po q hs. This information is somewhat inconsistent with med reconciliation which indicates patient was discharged on Invega Sustenna, not Haldol Decanoate. Will continue to monitor patient's response to Zyprexa and am changing to zydis, will monitor response to Cogentin added to address EPS symptoms, will increase Depakote in effort to stabilize mood. In addition, will add haldol 2 mg po q am; patient received one time dose today which she initially refused but then decided to take. In the interim, will continue to encourage patient to take medications. Will monitor patient's response to medication and for medication side effects and will evaluate patient safety and discharge/transfer readiness. MANAGEMENT PLAN: Initiate med trial Haldol 2 mg po q am. Continue Cogentin 0.5 mg po q am and 1 mg po q hs, increase Depakote ER to 500 mg po q hs. Change Zyprexa to Zydis 10 mg po BID, continue hydroxyzine 25 mg po q 8 hours PRN anxiety/agitation. Vitals QID Placed on fall precautions Maintain safety precautions Encourage patient to attend groups and participate in unit programming to develop coping strategies Engage patient in discharge planning process and arrange meeting with support system to ensure safe discharge planning when appropriate Patient to follow up with PCM upon discharge TIME SPENT: 35 minutes Vital Signs Vital Signs Date Time Temp Pulse Resp B/P Pulse Ox O2 Delivery O2 Flow Rate FiO2 12/20/16 06:27 98.8 99 16 105/67 12/18/16 06:10 Room Air Current Medications Current Medications Acetaminophen (Tylenol Tab) 650 mg Q6HP PRN PO HEADACHE or DISCOMFORT Last administered on 12/18/16 16:34; Start 12/06/16 at 04:00; Stop 01/05/17 at 03:59 Al Hydrox/Mg Hydrox/Simethicone (Mylanta) 30 ml Q4HP PRN PO HEARTBURN/ INDIGESTION Last administered on 12/19/16 22:46; Start 12/06/16 at 04:00; Stop 01/05/17 at 03:59 Albuterol Sulfate (Proventil, Ventolin Hfa) 2 puff Q4HP PRN INH SHORTNESS OF BREATH Last administered on 12/20/16 09:09; Start 12/06/16 at 13:15; Stop at 13:14 Artificial Tears (Akwa Tears) 2 drop TIDP PRN OU DRY EYES Last administered on 12/16/16 08:46; Start 12/08/16 at 16:30; Stop 01/07/17 at 16:29 Aspirin (Ecotrin) 81 mg DAILY PO Last administered on 12/19/16 09:10; Start at 09:00; Stop 01/06/17 at 08:59 Benztropine Mesylate (Cogentin) 0.5 mg QAM PO Last administered on 12/20/16 06: 25; Start 12/20/16 at 09:00; Stop 01/19/17 at 08:59 Benztropine Mesylate (Cogentin) 1 mg QHS PO ; Start 12/20/16 at 21:00; Stop at 20:59 Benztropine Mesylate (Cogentin) 1 mg QHSP PRN PO IF EXHIBITING EPS Last administered on 12/19/16 20:44; Start 12/19/16 at 21:00; Stop 12/19/16 at 23:00; Status DC Divalproex Sodium (Depakote Er) 250 mg QHS PO Last administered on 12/19/16 20: 44; Start 12/19/16 at 21:00; Stop 12/20/16 at 13:06; Status DC Divalproex Sodium (Depakote Er) 500 mg QHS PO ; Start 12/20/16 at 21:00; Stop 01/19/17 at 20:59 Furosemide (Lasix) 40 mg DAILY PO Last administered on 12/19/16 09:10; Start at 09:00; Stop 01/05/17 at 08:59 Haloperidol (Haldol) 2 mg QAM PO ; Start 12/21/16 at 09:00; Stop 01/20/17 at 08:59 Home Med (Med Rec Complete!) ASDIRECTED XX ; Start 12/06/16 at 07:30; Stop at 07:31; Status DC Hydroxyzine HCl (Atarax) 25 mg Q8HP PRN PO ANXIETY/AGITATION Last administered on 12/15/16 14:10; Start 12/14/16 at 18:00; Stop 01/13/17 at 17:59 Magnesium Hydroxide (Milk Of Magnesia) 30 ml DAILYPRN PRN PO CONSTIPATION; Start 12/06/16 at 04:00; Stop 01/05/17 at 03:59 Nicotine (Nicoderm Cq 21mg) 1 patch DAILY TD ; Start 12/06/16 at 09:00; Stop at 08:59 Non-Formulary Medication ( See Comment Field Below ) SEE COMMENTS SECTION 1T @10 XX ; Start 12/19/16 at 10:00; Stop 12/19/16 at 10:00; Status DC Non-Formulary Medication ( See Comment Field Below ) SEE LABEL COMMENTS DAILY XX ; Start 12/17/16 at 09:00; Stop 01/16/17 at 08:59 Olanzapine (ZyPREXA) 5 mg BID PO Last administered on 12/13/16 20:31; Start at 21:00; Stop 12/13/16 at 20:59; Status DC Olanzapine (ZyPREXA) 5 mg QAM PO Last administered on 12/14/16 09:13; Start at 09:00; Stop 12/14/16 at 18:09; Status DC Olanzapine (ZyPREXA) 5 mg QHS PO ; Start 12/08/16 at 21:00; Stop 12/09/16 at 08: 20; Status DC Olanzapine (ZyPREXA) 5 mg QHS PO ; Start 12/11/16 at 21:00; Stop 12/12/16 at 17: 41; Status DC Olanzapine (ZyPREXA) 5 mg QHS PO Last administered on 12/16/16 23:51; Start at 21:00; Stop 12/17/16 at 14:17; Status DC Olanzapine (ZyPREXA) 7.5 mg QHS PO ; Start 12/09/16 at 21:00; Stop 12/10/16 at 13:18; Status DC Olanzapine (ZyPREXA) 10 mg BID PO Last administered on 12/19/16 09:10; Start at 21:00; Stop 01/16/17 at 20:59 Olanzapine (ZyPREXA) 10 mg QAM PO Last administered on 12/17/16 09:53; Start at 09:00; Stop 12/17/16 at 14:17; Status DC Olanzapine (ZyPREXA) 10 mg QHS PO Last administered on 12/10/16 21:34; Start 12/10/16 at 21:00; Stop 12/11/16 at 20:25; Status DC Sodium Chloride ([place] Saline Nasal Gel) APPLY SMALL WALDEMAR... Q4HP PRN NA NASAL DRYNESS Last administered on 12/18/16 10:14; Start 12/08/16 at 16:30; Stop 01/07 at 16:29 Sodium Chloride (Luis Lopez Nasal [place]) 2 spray Q2HP PRN NA NASAL DRYNESS Last administered on 12/10/16 15:02; Start 12/06/16 at 13:00; Stop 01/05/17 at 12:59 Trazodone HCl (Desyrel) 50 mg QHSP PRN PO INSOMNIA Last administered on 23:51; Start 12/06/16 at 04:00; Stop 12/17/16 at 17:16; Status DC Allergies Coded Allergies: No Known Allergies (Verified , 10/30/03) Celena Badillo Dec 20, 2016 16:27
[2016-12-20 18:00] VITALS: BP 138/72
[2016-12-20] MEDS: hydrOXYzine 25 MG TAB PO PRN (18:36)
[2016-12-20] MEDS ORDERED: DIVALPROEX 500MG *ER* TAB PO SCH (21:00)
[2016-12-20] MEDS: BENZTROPINE 1 MG TAB PO SCH (21:27)
[2016-12-20] MEDS: OLANZapine ORAL DISINTEGRATING TAB 5MG PO SCH (23:52)
[2016-12-21] MEDS: ACETAMINOPHEN TAB 650MG DOSE (2X325MG) PO PRN ×2 (03:57→22:32)
[2016-12-21 06:19] VITALS: BP 117/56
[2016-12-21] MEDS: BENZTROPINE 0.5 MG TAB PO SCH (08:21)
[2016-12-21] MEDS: FUROSEMIDE 40 MG TAB PO SCH (08:21)
[2016-12-21] MEDS: ASPIRIN 81 MG ENTERIC TAB PO SCH (08:21)
[2016-12-21] MEDS: OLANZapine ORAL DISINTEGRATING TAB 5MG PO SCH ×2 (08:21→21:00)
[2016-12-21] MEDS: HALOPERIDOL 2 MG TAB PO SCH (08:23)
[2016-12-21] MEDS: NICOTINE 21MG/24HR 1 EA TRANSDERMAL TD SCH (09:00)
[2016-12-21] MEDS: **PENDING PPD ENTRY XX SCH (09:00)
[2016-12-21 12:00] VITALS: BP 116/73
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
[2016-12-21 18:00] VITALS: BP 118/72
[2016-12-21] MEDS: BENZTROPINE 1 MG TAB PO SCH (21:00)
[2016-12-21] MEDS: DIVALPROEX 250MG *ER* TAB PO SCH (21:00)
[2016-12-22 07:01] VITALS: BP 111/81
[2016-12-22] MEDS: **PENDING PPD ENTRY XX SCH (09:00)
[2016-12-22] MEDS: NICOTINE 21MG/24HR 1 EA TRANSDERMAL TD SCH (09:00)
[2016-12-22] MEDS: BENZTROPINE 0.5 MG TAB PO SCH (09:31)
[2016-12-22] MEDS: FUROSEMIDE 40 MG TAB PO SCH (09:31)
[2016-12-22] MEDS: hydrOXYzine 25 MG TAB PO PRN (09:31)
[2016-12-22] MEDS: ASPIRIN 81 MG ENTERIC TAB PO SCH (09:31)
[2016-12-22] MEDS: OLANZapine ORAL DISINTEGRATING TAB 5MG PO SCH ×2 (09:32→21:00)
[2016-12-22] MEDS: HALOPERIDOL 2 MG TAB PO SCH (09:32)
[2016-12-22 12:00] VITALS: BP 112/68
[2016-12-22] MEDS: POLYVINYL ALCOHOL OPHTH SOLN 15 ML(LIQUITEARS) OU PRN (15:47)
[2016-12-22] MEDS: SODIUM CHLORIDE 0.9% NASAL GEL 15MG (AYR) PRN (16:32)
[2016-12-22 18:00] VITALS: BP 110/64
[2016-12-22] MEDS: DIVALPROEX 250MG *ER* TAB PO SCH (21:00)
[2016-12-22] MEDS: BENZTROPINE 1 MG TAB PO SCH (21:00)
[2016-12-22] MEDS: ACETAMINOPHEN TAB 650MG DOSE (2X325MG) PO PRN (21:46)
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
[2016-12-23] MEDS: ALBUTEROL 90 MCG/ACT 8GM HFA INHALER INH PRN (05:19)
[2016-12-23] MEDS: hydrOXYzine 25 MG TAB PO PRN ×2 (05:22→17:30)
[2016-12-23 06:33] VITALS: BP 113/81
[2016-12-23] MEDS: ASPIRIN 81 MG ENTERIC TAB PO SCH (08:24)
[2016-12-23] MEDS: NICOTINE 21MG/24HR 1 EA TRANSDERMAL TD SCH (08:24)
[2016-12-23] MEDS: OLANZapine ORAL DISINTEGRATING TAB 5MG PO SCH ×2 (08:24→21:00)
[2016-12-23] MEDS: FUROSEMIDE 40 MG TAB PO SCH (08:24)
[2016-12-23] MEDS: HALOPERIDOL 2 MG TAB PO SCH (08:24)
[2016-12-23] MEDS: **PENDING PPD ENTRY XX SCH (08:25)
[2016-12-23] MEDS: BENZTROPINE 0.5 MG TAB PO SCH (08:54)
[2016-12-23 12:00] VITALS: BP 112/68
[2016-12-23 18:00] VITALS: BP 106/66
[2016-12-23 21:00] VITALS: BP 140/80
[2016-12-23] MEDS: BENZTROPINE 1 MG TAB PO SCH (21:00)
[2016-12-23] MEDS: DIVALPROEX 250MG *ER* TAB PO SCH (21:00)
[2016-12-24] MEDS: hydrOXYzine 25 MG TAB PO PRN ×2 (00:42→14:45)
[2016-12-24 06:41] VITALS: BP 123/72
[2016-12-24] MEDS: NICOTINE 21MG/24HR 1 EA TRANSDERMAL TD SCH (09:00)
[2016-12-24] MEDS: **PENDING PPD ENTRY XX SCH (09:00)
[2016-12-24] MEDS: FUROSEMIDE 40 MG TAB PO SCH (09:13)
[2016-12-24] MEDS: OLANZapine ORAL DISINTEGRATING TAB 5MG PO SCH ×2 (09:13→20:01)
[2016-12-24] MEDS: BENZTROPINE 0.5 MG TAB PO SCH (09:13)
[2016-12-24] MEDS: HALOPERIDOL 2 MG TAB PO SCH (09:13)
[2016-12-24] MEDS: ASPIRIN 81 MG ENTERIC TAB PO SCH (09:13)
[2016-12-24] MEDS: POLYVINYL ALCOHOL OPHTH SOLN 15 ML(LIQUITEARS) OU PRN (09:31)
[2016-12-24] MEDS: ACETAMINOPHEN TAB 650MG DOSE (2X325MG) PO PRN (11:45)
[2016-12-24 12:00] VITALS: BP 117/78
[2016-12-24 18:00] VITALS: BP 120/75
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
[2016-12-24] MEDS: BENZTROPINE 1 MG TAB PO SCH (20:01)
[2016-12-24] MEDS: DIVALPROEX 250MG *ER* TAB PO SCH (20:02)
[2016-12-24 23:41] VITALS: BP 130/74
[2016-12-25] MEDS: MAALOX 30 ML SUSP *UDC PO PRN (00:09)
[2016-12-25] MEDS: NICOTINE 21MG/24HR 1 EA TRANSDERMAL TD SCH (09:00)
[2016-12-25] MEDS: HALOPERIDOL 2 MG TAB PO SCH (09:00)
[2016-12-25] MEDS: **PENDING PPD ENTRY XX SCH (09:00)
[2016-12-25] MEDS: FUROSEMIDE 40 MG TAB PO SCH (09:00)
[2016-12-25] MEDS: OLANZapine ORAL DISINTEGRATING TAB 5MG PO SCH ×2 (09:33→21:07)
[2016-12-25] MEDS: BENZTROPINE 0.5 MG TAB PO SCH (09:33)
[2016-12-25] MEDS: ASPIRIN 81 MG ENTERIC TAB PO SCH (09:33)
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
[2016-12-25 12:00] VITALS: BP 109/64
[2016-12-25 13:54] LABS: ALBUMIN 3.1 GM/DL (3.2-5.2); ALBUMIN/GLOBULIN RATIO 0.97 (1.00-1.93); ALKALINE PHOSPHATASE 93 U/L (45-117); ALT/SGPT 16 U/L (12-78); AST/SGOT 10 U/L (15-37); BILIRUBIN,DIRECT < 0.1 MG/DL (0.0-0.2); BILIRUBIN,TOTAL 0.3 MG/DL (0.2-1.0); TOTAL PROTEIN 6.3 GM/DL (6.4-8.2)
[2016-12-25] MEDS: hydrOXYzine 25 MG TAB PO PRN (17:30)
[2016-12-25 18:00] VITALS: BP 129/63
[2016-12-25] MEDS: BENZTROPINE 1 MG TAB PO SCH (21:06)
[2016-12-25] MEDS: DIVALPROEX 250MG *ER* TAB PO SCH (21:06)
[2016-12-26] MEDS: hydrOXYzine 25 MG TAB PO PRN ×2 (04:53→21:29)
[2016-12-26] MEDS: BENZTROPINE 0.5 MG TAB PO SCH (08:30)
[2016-12-26] MEDS: FUROSEMIDE 40 MG TAB PO SCH (08:30)
[2016-12-26] MEDS: OLANZapine ORAL DISINTEGRATING TAB 5MG PO SCH ×2 (08:31→21:30)
[2016-12-26] MEDS: ASPIRIN 81 MG ENTERIC TAB PO SCH ×2 (08:31→09:00)
[2016-12-26] MEDS: NICOTINE 21MG/24HR 1 EA TRANSDERMAL TD SCH (08:32)
[2016-12-26] MEDS: HALOPERIDOL 2 MG TAB PO SCH (08:32)
[2016-12-26] MEDS: **PENDING PPD ENTRY XX SCH (09:00)
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
[2016-12-26] MEDS: BENZTROPINE 1 MG TAB PO SCH (21:29)
[2016-12-26] MEDS: DIVALPROEX 250MG *ER* TAB PO SCH (21:29)
[2016-12-27] MEDS: ACETAMINOPHEN TAB 650MG DOSE (2X325MG) PO PRN (01:53)
[2016-12-27] MEDS: ASPIRIN 81 MG ENTERIC TAB PO SCH (09:00)
[2016-12-27] MEDS: HALOPERIDOL 2 MG TAB PO SCH (09:00)
[2016-12-27] MEDS: NICOTINE 21MG/24HR 1 EA TRANSDERMAL TD SCH (09:00)
[2016-12-27] MEDS: FUROSEMIDE 40 MG TAB PO SCH (09:00)
[2016-12-27] MEDS: OLANZapine ORAL DISINTEGRATING TAB 5MG PO SCH ×3 (09:00→19:58)
[2016-12-27] MEDS: **PENDING PPD ENTRY XX SCH (09:00)
[2016-12-27 12:00] VITALS: BP 127/65
[2016-12-27] MEDS: BENZTROPINE 0.5 MG TAB PO SCH (13:33)
[2016-12-27] MEDS: hydrOXYzine 25 MG TAB PO PRN ×2 (13:33→21:37)
[2016-12-27] MEDS: POLYVINYL ALCOHOL OPHTH SOLN 15 ML(LIQUITEARS) OU PRN (16:53)
[2016-12-27] MEDS: SODIUM CHLORIDE NASAL 0.65% SPRAY BTL (OCEAN) PRN (17:27)
[2016-12-27 18:00] VITALS: BP 129/74
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
[2016-12-27] MEDS: DIVALPROEX 250MG *ER* TAB PO SCH (19:58)
[2016-12-27] MEDS: BENZTROPINE 1 MG TAB PO SCH (19:58)
[2016-12-28] MEDS ORDERED: QUEtiapine FUMARATE 50 MG TAB PO ONE (01:00)
[2016-12-28] MEDS: **PENDING PPD ENTRY XX SCH (09:00)
[2016-12-28] MEDS: ASPIRIN 81 MG ENTERIC TAB PO SCH (09:00)
[2016-12-28] MEDS: HALOPERIDOL 2 MG TAB PO SCH (09:00)
[2016-12-28] MEDS: NICOTINE 21MG/24HR 1 EA TRANSDERMAL TD SCH (09:00)
[2016-12-28] MEDS: FUROSEMIDE 40 MG TAB PO SCH (09:11)
[2016-12-28] MEDS: BENZTROPINE 0.5 MG TAB PO SCH (09:11)
[2016-12-28] MEDS: OLANZapine ORAL DISINTEGRATING TAB 5MG PO SCH ×2 (09:11→20:56)
[2016-12-28 09:30] LABS: CALCIUM LEVEL 8.6 MG/DL (8.8-10.2); GLOMERULAR FILTRATION RATE 59.2 (>45); MAGNESIUM LEVEL 1.8 MG/DL (1.8-2.4); POTASSIUM SERUM 4.6 MEQ/L (3.5-5.1)
[2016-12-28 12:04] VITALS: BP 122/84
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
[2016-12-28 18:00] VITALS: BP 119/66
[2016-12-28] MEDS: BENZTROPINE 1 MG TAB PO SCH (20:54)
[2016-12-28] MEDS: DIVALPROEX 250MG *ER* TAB PO SCH (20:55)
[2016-12-28 21:00] VITALS: BP 124/78
[2016-12-29 06:32] VITALS: BP 115/79
[2016-12-29] MEDS: OLANZapine ORAL DISINTEGRATING TAB 5MG PO SCH ×2 (08:03→20:03)
[2016-12-29] MEDS: BENZTROPINE 0.5 MG TAB PO SCH (08:03)
[2016-12-29] MEDS: FUROSEMIDE 40 MG TAB PO SCH (08:03)
[2016-12-29] MEDS: ASPIRIN 81 MG ENTERIC TAB PO SCH ×2 (08:04→11:00)
[2016-12-29] MEDS: HALOPERIDOL 2 MG TAB PO SCH (08:04)
[2016-12-29] MEDS: NICOTINE 21MG/24HR 1 EA TRANSDERMAL TD SCH (08:04)
[2016-12-29] MEDS: **PENDING PPD ENTRY XX SCH (08:05)
[2016-12-29 08:40] LABS: MEAN CORPUSCULAR HEMOGLOBIN 30.4 pg (27.0-33.0); MEAN CORPUSCULAR VOLUME 91.9 fl (80.0-96.0); RED CELL DISTRIBUTION WIDTH 12.8 % (11.5-14.5); WHITE BLOOD COUNT 6.3 K/mm3 (4.0-10.0)
[2016-12-29 09:02] LABS: ALBUMIN 3.2 GM/DL (3.2-5.2); ALKALINE PHOSPHATASE 96 U/L (45-117); ALT/SGPT 15 U/L (12-78); AST/SGOT 10 U/L (15-37); BILIRUBIN,DIRECT < 0.1 MG/DL (0.0-0.2); BILIRUBIN,TOTAL 0.4 MG/DL (0.2-1.0); TOTAL PROTEIN 6.4 GM/DL (6.4-8.2)
[2016-12-29] MEDS: MAALOX 30 ML SUSP *UDC PO PRN (12:24)
[2016-12-29 18:00] VITALS: BP 111/76
[2016-12-29] MEDS: BENZTROPINE 1 MG TAB PO SCH (20:03)
[2016-12-29] MEDS: DIVALPROEX 250MG *ER* TAB PO SCH (20:04)
[2016-12-29] MEDS: ACETAMINOPHEN TAB 650MG DOSE (2X325MG) PO PRN (20:37)
[2016-12-29] MEDS: hydrOXYzine 25 MG TAB PO PRN (23:51)
--- NOTE | 2016-12-30 05:38 | IPN ---
DATE OF SERVICE: 12/29/2016 Samira Varela refused her Haldol this morning of 2 mg. This has been her pattern. Apparently, she previously has taken her Zyprexa and Depakote at night. She continues to be delusional. She continues to respond to internal stimuli with limited concentration and focus. Apparently, she did take her Depakote ER last night. Treatment continues to be use of Haldol 2 mg in the morning, Cogentin 0.5 mg in the morning, Depakote 750 at night, Zyprexa 10 mg twice a day. DIAGNOSIS: Schizophrenia, disorganized type, rule out schizoaffective disorder.
[2016-12-30 07:00] VITALS: BP 115/62
[2016-12-30] MEDS: NICOTINE 21MG/24HR 1 EA TRANSDERMAL TD SCH (09:00)
[2016-12-30] MEDS: OLANZapine ORAL DISINTEGRATING TAB 5MG PO SCH ×3 (09:00→21:30)
[2016-12-30] MEDS: **PENDING PPD ENTRY XX SCH (09:00)
[2016-12-30] MEDS: FUROSEMIDE 40 MG TAB PO SCH (09:00)
[2016-12-30] MEDS: HALOPERIDOL 2 MG TAB PO SCH ×2 (09:00→16:59)
[2016-12-30] MEDS: BENZTROPINE 0.5 MG TAB PO SCH (09:36)
[2016-12-30] MEDS: ASPIRIN 81 MG ENTERIC TAB PO SCH (09:36)
[2016-12-30 11:36] VITALS: BP 130/78
[2016-12-30] MEDS: hydrOXYzine 25 MG TAB PO PRN ×2 (13:04→21:31)
[2016-12-30 18:00] VITALS: BP 135/80
[2016-12-30 20:00] VITALS: BP 130/76
[2016-12-30] MEDS: DIVALPROEX 250MG *ER* TAB PO SCH (21:29)
[2016-12-30] MEDS: BENZTROPINE 1 MG TAB PO SCH (21:32)
[2016-12-31] MEDS: ACETAMINOPHEN TAB 650MG DOSE (2X325MG) PO PRN (02:19)
[2016-12-31] MEDS: hydrOXYzine 25 MG TAB PO PRN ×3 (05:36→20:40)
[2016-12-31 06:31] VITALS: BP 114/57
[2016-12-31] MEDS: **PENDING PPD ENTRY XX SCH (09:00)
[2016-12-31] MEDS: FUROSEMIDE 40 MG TAB PO SCH (09:00)
[2016-12-31] MEDS: HALOPERIDOL 2 MG TAB PO SCH (09:00)
[2016-12-31] MEDS: NICOTINE 21MG/24HR 1 EA TRANSDERMAL TD SCH (09:00)
[2016-12-31] MEDS: OLANZapine ORAL DISINTEGRATING TAB 5MG PO SCH ×2 (09:40→20:42)
[2016-12-31] MEDS: ASPIRIN 81 MG ENTERIC TAB PO SCH (09:40)
[2016-12-31] MEDS: BENZTROPINE 0.5 MG TAB PO SCH (09:40)
[2016-12-31 11:20] VITALS: BP 136/79
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
[2016-12-31 18:00] VITALS: BP 135/65
[2016-12-31] MEDS: BENZTROPINE 1 MG TAB PO SCH (20:40)
[2016-12-31] MEDS: DIVALPROEX 250MG *ER* TAB PO SCH (20:40)
[2017-01-01 06:36] VITALS: BP 122/71
[2017-01-01] MEDS: hydrOXYzine 25 MG TAB PO PRN ×2 (08:06→15:08)
[2017-01-01] MEDS: BENZTROPINE 0.5 MG TAB PO SCH (08:07)
[2017-01-01] MEDS: ASPIRIN 81 MG ENTERIC TAB PO SCH (09:00)
[2017-01-01] MEDS: NICOTINE 21MG/24HR 1 EA TRANSDERMAL TD SCH (09:00)
[2017-01-01] MEDS: FUROSEMIDE 40 MG TAB PO SCH (09:00)
[2017-01-01] MEDS: **PENDING PPD ENTRY XX SCH (09:00)
[2017-01-01] MEDS: OLANZapine ORAL DISINTEGRATING TAB 5MG PO SCH ×2 (09:00→21:01)
[2017-01-01] MEDS: HALOPERIDOL 2 MG TAB PO SCH (09:00)
[2017-01-01 12:18] VITALS: BP 120/80
--- NOTE | 2017-01-01 15:00 | IPNPDOC ---
[facility] Progress Note Progress Note DATE OF SERVICE: 01/01/17 HISTORY: day 27 of admission. Pt presents as disorganized, difficult to understand and appears lost today. She was upset about [place] [facility] VITAL SIGNS: See below. NEW TEST RESULTS: NA CURRENT MEDICATIONS: See below. MENTAL STATUS EXAMINATION: Patient is a 65-year old female, who is being treated for schizophrenia, disorganized type. Speech: Is garbled, muffled Language skills are poor Thought processes including: illogical, unrealistic Thought content: refuses to take medication as ordered. Abstract reasoning, and computation: poor. Description of associations: poor. Description of abnormal or psychotic thoughts: appears to be distracted by internal stimuli Judgment: poor Insight: poor. Orientation: not oriented to time, oriented to person and place. Recent and remote memory: poor Attention span and concentration: short Fund of knowledge: lacking/poor Mood: sad. Affect: labile DIAGNOSES: 1. Schizophrenia, disorganized type, r/o schizoaffective disorder, bipolar type , Cannabis dependence, h/o alcohol dependence ASSESSMENT:patient is only compliant with certain medications. refuses meds repeatedly. Speech and thoughts are disorganized and not coherent at times. It is often difficult to ascertain pts meaning when she speaks. MANAGEMENT PLAN: Pt became upset when talk of her transfer to another facility was mentioned. She requested vistaril but 8 hours had not passed. Order was changed by racebook writer to q 6 hours so she could receive the medication when it was needed. She responded appropriately to the intervention and thanked racebook writer. Pt remain on the transfer list due to her persistent nonadherence to the prescribed treatment regime. Pt is eating and sleeping. She interacts appropriately with certain staff. Observed crying at times for no apparent reason. TIME SPENT: 30 minutes. Vital Signs Vital Signs Date Time Temp Pulse Resp B/P Pulse Ox O2 Delivery O2 Flow Rate FiO2 01/01/17 12:18 98.8 89 18 120/80 Current Medications Current Medications Acetaminophen (Tylenol Tab) 650 mg Q6HP PRN PO HEADACHE or DISCOMFORT Last administered on 12/31/16 02:19; Start 12/06/16 at 04:00; Stop 01/05/17 at 03:59 Al Hydrox/Mg Hydrox/Simethicone (Mylanta) 30 ml Q4HP PRN PO HEARTBURN/ INDIGESTION Last administered on 12/29/16 12:24; Start 12/06/16 at 04:00; Stop 01/05/17 at 03:59 Albuterol Sulfate (Proventil, Ventolin Hfa) 2 puff Q4HP PRN INH SHORTNESS OF BREATH Last administered on 12/23/16 05:19; Start 12/06/16 at 13:15; Stop at 13:14 Artificial Tears (Akwa Tears) 2 drop TIDP PRN OU DRY EYES Last administered on 12/27/16 16:53; Start 12/08/16 at 16:30; Stop 01/07/17 at 16:29 Aspirin (Ecotrin) 81 mg DAILY PO Last administered on 12/31/16 09:40; Start at 09:00; Stop 01/06/17 at 08:59 Benztropine Mesylate (Cogentin) 0.5 mg QAM PO Last administered on 01/01/17 08 :07; Start 12/20/16 at 09:00; Stop 01/19/17 at 08:59 Benztropine Mesylate (Cogentin) 1 mg QHS PO Last administered on 12/31/16 20: 40; Start 12/20/16 at 21:00; Stop 01/19/17 at 20:59 Benztropine Mesylate (Cogentin) 1 mg QHSP PRN PO IF EXHIBITING EPS Last administered on 12/19/16 20:44; Start 12/19/16 at 21:00; Stop 12/19/16 at 23:00; Status DC Divalproex Sodium (Depakote Er) 250 mg QHS PO Last administered on 12/19/16 20: 44; Start 12/19/16 at 21:00; Stop 12/20/16 at 13:06; Status DC Divalproex Sodium (Depakote Er) 500 mg QHS PO Last administered on 12/20/16 23: 52; Start 12/20/16 at 21:00; Stop 12/21/16 at 16:16; Status DC Divalproex Sodium (Depakote Er) 750 mg QHS PO Last administered on 12/31/16 20 :40; Start 12/21/16 at 21:00; Stop 01/20/17 at 20:59 Furosemide (Lasix) 40 mg DAILY PO Last administered on 12/29/16 08:03; Start 12/06/16 at 09:00; Stop 01/05/17 at 08:59 Haloperidol (Haldol) 2 mg QAM PO Last administered on 12/30/16 16:59; Start at 09:00; Stop 01/20/17 at 08:59 Home Med (Med Rec Complete!) ASDIRECTED XX ; Start 12/06/16 at 07:30; Stop at 07:31; Status DC Hydroxyzine HCl (Atarax) 25 mg Q8HP PRN PO ANXIETY/AGITATION Last administered on 01/01/17 08:06; Start 12/14/16 at 18:00; Stop 01/13/17 at 17:59 Magnesium Hydroxide (Milk Of Magnesia) 30 ml DAILYPRN PRN PO CONSTIPATION; Start 12/06/16 at 04:00; Stop 01/05/17 at 03:59 Nicotine (Nicoderm Cq 21mg) 1 patch DAILY TD ; Start 12/06/16 at 09:00; Stop at 08:59 Non-Formulary Medication ( See Comment Field Below ) SEE COMMENTS SECTION 1T @10 XX ; Start 12/19/16 at 10:00; Stop 12/19/16 at 10:00; Status DC Non-Formulary Medication ( See Comment Field Below ) SEE LABEL COMMENTS DAILY XX ; Start 12/17/16 at 09:00; Stop 01/16/17 at 08:59 Olanzapine (ZyPREXA ZYDIS) 10 mg BID PO Last administered on 12/31/16 09: 40; Start 12/20/16 at 21:00; Stop 01/19/17 at 20:59 Olanzapine (ZyPREXA) 5 mg BID PO Last administered on 12/13/16 20:31; Start at 21:00; Stop 12/13/16 at 20:59; Status DC Olanzapine (ZyPREXA) 5 mg QAM PO Last administered on 12/14/16 09:13; Start at 09:00; Stop 12/14/16 at 18:09; Status DC Olanzapine (ZyPREXA) 5 mg QHS PO ; Start 12/08/16 at 21:00; Stop 12/09/16 at 08: 20; Status DC Olanzapine (ZyPREXA) 5 mg QHS PO ; Start 12/11/16 at 21:00; Stop 12/12/16 at 17: 41; Status DC Olanzapine (ZyPREXA) 5 mg QHS PO Last administered on 12/16/16 23:51; Start at 21:00; Stop 12/17/16 at 14:17; Status DC Olanzapine (ZyPREXA) 7.5 mg QHS PO ; Start 12/09/16 at 21:00; Stop 12/10/16 at 13:18; Status DC Olanzapine (ZyPREXA) 10 mg BID PO Last administered on 12/19/16 09:10; Start at 21:00; Stop 12/20/16 at 16:14; Status DC Olanzapine (ZyPREXA) 10 mg QAM PO Last administered on 12/17/16 09:53; Start at 09:00; Stop 12/17/16 at 14:17; Status DC Olanzapine (ZyPREXA) 10 mg QHS PO Last administered on 12/10/16 21:34; Start 12/10/16 at 21:00; Stop 12/11/16 at 20:25; Status DC Sodium Chloride ([place] Saline Nasal Gel) APPLY SMALL WALDEMAR... Q4HP PRN NA NASAL DRYNESS Last administered on 12/22/16 16:32; Start 12/08/16 at 16:30; Stop 01/07 at 16:29 Sodium Chloride ([place] Nasal [place]) 2 spray Q2HP PRN NA NASAL DRYNESS Last administered on 12/27/16 17:27; Start 12/06/16 at 13:00; Stop 01/05/17 at 12:59 Trazodone HCl (Desyrel) 50 mg QHSP PRN PO INSOMNIA Last administered on 23:51; Start 12/06/16 at 04:00; Stop 12/17/16 at 17:16; Status DC Allergies Coded Allergies: No Known Allergies (Verified , 10/30/03) Kathrine Hernandez Jan 01, 2017 15:00
[2017-01-01 18:00] VITALS: BP 129/83
[2017-01-01] MEDS: DIVALPROEX 250MG *ER* TAB PO SCH (21:00)
[2017-01-01] MEDS: BENZTROPINE 1 MG TAB PO SCH (21:01)
[2017-01-02] MEDS: NICOTINE 21MG/24HR 1 EA TRANSDERMAL TD SCH (08:38)
[2017-01-02] MEDS: HALOPERIDOL 2 MG TAB PO SCH ×2 (08:38→13:40)
[2017-01-02] MEDS: OLANZapine ORAL DISINTEGRATING TAB 5MG PO SCH ×2 (08:39→20:30)
[2017-01-02] MEDS: FUROSEMIDE 40 MG TAB PO SCH (08:39)
[2017-01-02] MEDS: BENZTROPINE 0.5 MG TAB PO SCH (08:39)
[2017-01-02] MEDS: ASPIRIN 81 MG ENTERIC TAB PO SCH (08:39)
[2017-01-02] MEDS: hydrOXYzine 25 MG TAB PO PRN ×2 (08:56→16:00)
[2017-01-02] MEDS ORDERED: TUBERCULIN PPD 5 UNITS/0.1 ML ID SCH (10:00)
[2017-01-02 12:00] VITALS: BP 124/76
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
[2017-01-02] MEDS: ALBUTEROL 90 MCG/ACT 8GM HFA INHALER INH PRN (15:50)
[2017-01-02 18:00] VITALS: BP 122/84
[2017-01-02] MEDS: DIVALPROEX 250MG *ER* TAB PO SCH (20:29)
[2017-01-02] MEDS: BENZTROPINE 1 MG TAB PO SCH (20:30)
[2017-01-02 21:59] VITALS: BP 130/74
[2017-01-03 06:23] VITALS: BP 119/64
[2017-01-03] MEDS: ASPIRIN 81 MG ENTERIC TAB PO SCH (08:44)
[2017-01-03] MEDS: OLANZapine ORAL DISINTEGRATING TAB 5MG PO SCH ×2 (08:44→20:44)
[2017-01-03] MEDS: FUROSEMIDE 40 MG TAB PO SCH (08:45)
[2017-01-03] MEDS: HALOPERIDOL 2 MG TAB PO SCH (08:45)
[2017-01-03] MEDS: BENZTROPINE 1 MG TAB PO SCH ×2 (08:45→20:44)
[2017-01-03] MEDS: NICOTINE 21MG/24HR 1 EA TRANSDERMAL TD SCH (08:46)
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
[2017-01-03] MEDS: hydrOXYzine 25 MG TAB PO PRN (17:00)
[2017-01-03 18:00] VITALS: BP 116/78
[2017-01-03 20:00] VITALS: BP 118/82
[2017-01-03] MEDS: DIVALPROEX 250MG *ER* TAB PO SCH (21:18)
[2017-01-03] MEDS: ACETAMINOPHEN TAB 650MG DOSE (2X325MG) PO PRN (23:54)
[2017-01-04 06:00] VITALS: BP 114/70
[2017-01-04] MEDS: NICOTINE 21MG/24HR 1 EA TRANSDERMAL TD SCH (08:27)
[2017-01-04] MEDS: BENZTROPINE 1 MG TAB PO SCH ×2 (08:28→21:00)
[2017-01-04] MEDS: ASPIRIN 81 MG ENTERIC TAB PO SCH (08:28)
[2017-01-04] MEDS: HALOPERIDOL 2 MG TAB PO SCH (08:29)
[2017-01-04] MEDS: OLANZapine ORAL DISINTEGRATING TAB 5MG PO SCH ×2 (08:29→21:42)
[2017-01-04] MEDS: FUROSEMIDE 40 MG TAB PO SCH (08:30)
[2017-01-04] MEDS: POLYVINYL ALCOHOL OPHTH SOLN 15 ML(LIQUITEARS) OU PRN (08:36)
[2017-01-04] MEDS ORDERED: PPD DOCUMENTATION ENTRY MISC XX SCH (10:00)
--- NOTE | 2017-01-04 16:00 | IPNPDOC ---
[facility] Progress Note Progress Note DATE OF SERVICE: 01/04/17 HISTORY: Patient is 65-year-old female who was recently discharged from [facility] and found in hallway at [facility] station complaining of needing shower and being hungry. Patient was initially treated at [facility] and then transferred to [facility], apparently stopped taking her medications after being discharged from [facility]. Medical Social Worker met with patient today to assess treatment progress on inpatient unit. Patient today informs auto service writer she has been medication compliant, denies discarding medication and water provided at [facility], states she has taken "all the pills, every time." Patient informs auto service writer she feels her mood is "better," adding, "but sometimes I still feel depressed." Patient denies medication side effects, was again strongly encouraged to take medications as ordered. Patient appears calmer, less disorganized, appears less psychotic. Patient continues to make reference to S[place]umit, however, today indicates S[place]umit is another patient on the unit who has been disruptive, adds other patient has been yelling at yet another patient which is at times upsetting to patient. Patient refers to tension between two other patients as "a constant two way antichrist situation. " Patient denies symptoms of lightheadedness, sedation, and dizziness, has history of low blood pressure and unsteady gait, vitals to remain QID until patient is safely stabilized on medication. No symptoms of akathisia noted, patient denies rigidity, new/change to garbled speech, challenges with swallowing, or cogwheeling, nor have symptoms been reported by staff. Patient's mood appears less labile today, denies suicidal and homicidal thinking, is observed to be laughing and joking at appropriate times with auto service writer, states she is preparing to take a shower, and is observed to have collected her laundry in preparation for washing. Patient's sleep has improved somewhat and she reports stable appetite and energy level. Patient has been attending some groups, continues to struggle with concentration and focus in the group setting and continues to leave prior to termination of group. Patient denies audiovisual hallucinations at time of interaction but indicates she continues to experience visual hallucinations of seeing the devil, remains religiously and sexually preoccupied, denies suicidal and homicidal thinking, denies urge to engage in self-injurious behavior. Patient continues to indicate she will not take injectable medication. Patient denies physical pain and presents with no signs of acute distress at time of interaction. Nursing has been made aware of need to monitor patient at medication pass for compliance. VITAL SIGNS: See below. NEW TEST RESULTS: New lab results indicate elevated BUN and glucose and low calcium. Last lab results indicated WBCs 6.3, low AST, total protein, albumin, AGR. Labs on admission indicated elevated BUN, glucose and cholesterol. [facility] 12/05/16 labs indicate low RBC, hematocrit, lymphocytes and elevated neutrophils, MPV, glucose. Patient has history of appendectomy, hernia repair, exploratory laparoscopy, hyperlipidemia, migraine, HTN, COPD experiences chronic back pain and pain to left foot secondary to fracture of metatarsal bone post fall, uses orthopedic boot. Per [facility] discharge records patient has history of Type 2 diabetes and lower extremity edema, PA is aware and monitoring. Per [facility] records patient has history of low blood pressure. Patient exhibits tremor at rest. EKG 12/06/16 sinus rhythm Left foot x-ray fracture of metatarsal bone, per [facility] records [facility] records indicated history of type 2 diabetes and edema Depakote level on low at 38.8 Repeat lab work ordered for 12/29/16 12/27/16 Urine culture no growth 12/29/16 Depakote level 55.9 01/07/17 Depakote level pending CURRENT MEDICATIONS: See below. MENTAL STATUS EXAMINATION: Patient is 65-year-old female who is more pleasant pleasant and cooperative today, is poor historian, is less disheveled today and is dressed in hospital clothing, makes improved eye contact, ambulates with unsteady gait, exhibits resting tremor, appears stated age Speech: Less pressured and rapid, of normal volume, remains difficult to decipher Thought processes: Remains tangential and disorganized, appears less preoccupied , flight of ideas Thought content: Delusional thinking, is less bizarre today Abstract reasoning: [place] thinking Description of associations: Loose, flight of ideas Description of abnormal or psychotic thoughts: Denies any suicidal or homicidal ideation. Denies auditory or visual hallucinations but endorses seeing the devil at times, makes no reference today to witchcraft, allegations of sexual assault, believing she is , or to [employer]. Patient appears less preoccupied today, continues to respond to internal stimuli at times. Judgment: Poor Insight: Poor Orientation: Alert and orientated 3 Recent and remote memory: Limited Attention span and concentration: Limited Fund of knowledge: Limited Mood: "I'm feeling better." Patient reports medication compliance, appears less psychotic, less delusional, less anxious, and less depressed, also exhibits less mood lability Affect: Blunted but brightens, expresses humor DIAGNOSES: Schizophrenia, disorganized type, rule out Schizoaffective disorder, bipolar type, Cannabis use disorder, history of alcohol use disorder ASSESSMENT: The patient a 65-year-old woman with a long history of schizoaffective disorder, indicates she has been medication compliant and reports reduced symptoms of anxiety and depression today. Nursing has been asked to monitor patient's medication compliance. Patient denies suicidal and homicidal ideation and nursing is monitoring patient closely for comfort and safety. Patient has indicated she does not want to take injectable medication, also states she does not want to take Haldol but has been taking for past 3 days. Recent Depakote level was 55.9. surgery scheduling coordinator has confirmed that patient did not present for outpatient medication management at [facility] post discharge from [facility]. surgery scheduling coordinator has also initiated contact with patient's [facility] community case manager in effort to determine appropriate discharge plan. surgery scheduling coordinator/hide and skin processing worker spoke with RN at [facility] who indicated Invega Sustenna was discontinued on 10/31/16 and patient was given Haldol Decanoate 100 mg IM on . Clinical consults completed and Haldol Decanoate injection not recommended at this time, will be evaluated once patient is re-stabilized on po medications. Patient was scheduled to receive Haldol Decanoate 100 mg IM 12/19/16 , per [facility] discharge records. Verification was received that patient was discharged from [facility] on Zyprexa Zydis 20 mg po q hs, Cogentin 2 mg po q hs, and Depakote ER 1000 mg po q hs. This information is somewhat inconsistent with med reconciliation which indicates patient was discharged on Invega Sustenna, not Haldol Decanoate. Will continue to encourage patient to be medication compliant and will monitor patient's response to Depakote, po Haldol, Zyprexa zydis, cogentin, and hydroxyzine. Once stabilized will then evaluate restart of Haldol decanoate. Will also Monitor for medication side effects and will evaluate patient safety and discharge/transfer readiness. Patient is aware discharge plan at this time is transfer to [facility] for longer term treatment to enable adjustment on psychotropic medications. MANAGEMENT PLAN: Continue Depakote ER 1000 mg po q hs, cogentin 1 mg po BID, Haldol 2 mg po q am, Zyprexa Zydis 10 mg po BID, and hydroxyzine 25 mg po q 6 hours PRN anxiety/agitation. Repeat CBC, LFT, valproate level 01/07/17 Vitals QID Placed on fall precautions Maintain safety precautions Encourage patient to attend groups and participate in unit programming to develop coping strategies Engage patient in discharge planning process and arrange meeting with support system to ensure safe discharge planning when appropriate Patient to follow up with PCM upon discharge TIME SPENT: 35 minutes Vital Signs Vital Signs Date Time Temp Pulse Resp B/P Pulse Ox O2 Delivery O2 Flow Rate FiO2 01/04/17 06:00 98.0 85 16 114/70 Current Medications Current Medications Acetaminophen (Tylenol Tab) 650 mg Q6HP PRN PO HEADACHE or DISCOMFORT Last administered on 01/03/17 23:54; Start 12/06/16 at 04:00; Stop 02/03/17 at 03:59 Al Hydrox/Mg Hydrox/Simethicone (Mylanta) 30 ml Q4HP PRN PO HEARTBURN/ INDIGESTION Last administered on 12/29/16 12:24; Start 12/06/16 at 04:00; Stop 02/03/17 at 03:59 Albuterol Sulfate (Proventil, Ventolin Hfa) 2 puff Q4HP PRN INH SHORTNESS OF BREATH Last administered on 01/02/17 15:50; Start 12/06/16 at 13:15; Stop 02/03 at 13:14 Artificial Tears ([place] Tears) 2 drop TIDP PRN OU DRY EYES Last administered on 01/04/17 08:36; Start 12/08/16 at 16:30; Stop 01/07/17 at 16:29 Aspirin (Ecotrin) 81 mg DAILY PO Last administered on 01/04/17 08:28; Start at 09:00; Stop 01/06/17 at 08:59 Benztropine Mesylate (Cogentin) 0.5 mg QAM PO Last administered on 01/02/17 08 :39; Start 12/20/16 at 09:00; Stop 01/02/17 at 15:36; Status DC Benztropine Mesylate (Cogentin) 1 mg BID PO Last administered on 01/04/17 08: 28; Start 01/02/17 at 21:00; Stop 02/01/17 at 20:59 Benztropine Mesylate (Cogentin) 1 mg QHS PO Last administered on 01/01/17 21: 01; Start 12/20/16 at 21:00; Stop 01/02/17 at 15:36; Status DC Benztropine Mesylate (Cogentin) 1 mg QHSP PRN PO IF EXHIBITING EPS Last administered on 12/19/16 20:44; Start 12/19/16 at 21:00; Stop 12/19/16 at 23:00; Status DC Divalproex Sodium (Depakote Er) 250 mg QHS PO Last administered on 12/19/16 20: 44; Start 12/19/16 at 21:00; Stop 12/20/16 at 13:06; Status DC Divalproex Sodium (Depakote Er) 500 mg QHS PO Last administered on 12/20/16 23: 52; Start 12/20/16 at 21:00; Stop 12/21/16 at 16:16; Status DC Divalproex Sodium (Depakote Er) 750 mg QHS PO Last administered on 12/31/16 20 :40; Start 12/21/16 at 21:00; Stop 01/02/17 at 15:36; Status DC Divalproex Sodium (Depakote Er) 1,000 mg QHS PO Last administered on 01/03/17 21:18; Start 01/02/17 at 21:00; Stop 02/01/17 at 20:59 Furosemide (Lasix) 40 mg DAILY PO Last administered on 01/03/17 08:45; Start 12/06/16 at 09:00; Stop 02/03/17 at 08:59 Haloperidol (Haldol) 2 mg QAM PO Last administered on 01/04/17 08:29; Start at 09:00; Stop 01/20/17 at 08:59 Home Med (Med Rec Complete!) ASDIRECTED XX ; Start 12/06/16 at 07:30; Stop at 07:31; Status DC Hydroxyzine HCl (Atarax) 25 mg Q6HP PRN PO ANXIETY/AGITATION Last administered on 01/03/17 17:00; Start 01/01/17 at 14:50; Stop 01/31/17 at 14:49 Hydroxyzine HCl (Atarax) 25 mg Q8HP PRN PO ANXIETY/AGITATION Last administered on 01/01/17 08:06; Start 12/14/16 at 18:00; Stop 01/01/17 at 14:51; Status DC Magnesium Hydroxide (Milk Of Magnesia) 30 ml DAILYPRN PRN PO CONSTIPATION; Start 12/06/16 at 04:00; Stop 01/04/17 at 08:15; Status DC Miscellaneous (Unresolved Clarification Entry) SEE LABEL COMMENTS UNRESOLVED XX ; Start 01/04/17 at 00:01; Stop 02/03/17 at 00:00 Nicotine (Nicoderm Cq 21mg) 1 patch DAILY TD ; Start 12/06/16 at 09:00; Stop at 08:59 Non-Formulary Medication ( See Comment Field Below ) SEE COMMENTS SECTION 1T @10 XX ; Start 12/19/16 at 10:00; Stop 12/19/16 at 10:00; Status DC Non-Formulary Medication ( See Comment Field Below ) SEE LABEL COMMENTS DAILY XX ; Start 12/17/16 at 09:00; Stop 01/02/17 at 09:02; Status DC Non-Formulary Medication ( See Comment Field Below ) SEE LABEL COMMENTS SECTION 1T@10 XX Last administered on 01/04/17 08:38; Start 01/04/17 at 10:00 ; Stop 01/04/17 at 23:59 Olanzapine (ZyPREXA ZYDIS) 10 mg BID PO Last administered on 01/04/17 08: 29; Start 12/20/16 at 21:00; Stop 01/19/17 at 20:59 Olanzapine (ZyPREXA) 5 mg BID PO Last administered on 12/13/16 20:31; Start at 21:00; Stop 12/13/16 at 20:59; Status DC Olanzapine (ZyPREXA) 5 mg QAM PO Last administered on 12/14/16 09:13; Start at 09:00; Stop 12/14/16 at 18:09; Status DC Olanzapine (ZyPREXA) 5 mg QHS PO ; Start 12/08/16 at 21:00; Stop 12/09/16 at 08: 20; Status DC Olanzapine (ZyPREXA) 5 mg QHS PO ; Start 12/11/16 at 21:00; Stop 12/12/16 at 17: 41; Status DC Olanzapine (ZyPREXA) 5 mg QHS PO Last administered on 12/16/16 23:51; Start at 21:00; Stop 12/17/16 at 14:17; Status DC Olanzapine (ZyPREXA) 7.5 mg QHS PO ; Start 12/09/16 at 21:00; Stop 12/10/16 at 13:18; Status DC Olanzapine (ZyPREXA) 10 mg BID PO Last administered on 12/19/16 09:10; Start at 21:00; Stop 12/20/16 at 16:14; Status DC Olanzapine (ZyPREXA) 10 mg QAM PO Last administered on 12/17/16 09:53; Start at 09:00; Stop 12/17/16 at 14:17; Status DC Olanzapine (ZyPREXA) 10 mg QHS PO Last administered on 12/10/16 21:34; Start 12/10/16 at 21:00; Stop 12/11/16 at 20:25; Status DC Sodium Chloride ([place] Saline Nasal Gel) APPLY SMALL WALDEMAR... Q4HP PRN NA NASAL DRYNESS Last administered on 12/22/16 16:32; Start 12/08/16 at 16:30; Stop 02/03 at 16:29 Sodium Chloride ([place] Nasal [place]) 2 spray Q2HP PRN NA NASAL DRYNESS Last administered on 12/27/16 17:27; Start 12/06/16 at 13:00; Stop 01/05/17 at 12:59 Trazodone HCl (Desyrel) 50 mg QHSP PRN PO INSOMNIA Last administered on 23:51; Start 12/06/16 at 04:00; Stop 12/17/16 at 17:16; Status DC Tuberculin PPD (Aplisol, Ppd) 5 units 1T@10 ID Last administered on 01/02/17 10:06; Start 01/02/17 at 10:00; Stop 01/02/17 at 23:59; Status DC Allergies Coded Allergies: No Known Allergies (Verified , 10/30/03) Celena Badillo Jan 04, 2017 16:00
[2017-01-04] MEDS: hydrOXYzine 25 MG TAB PO PRN (16:32)
[2017-01-04 18:00] VITALS: BP 118/72
[2017-01-04] MEDS: DIVALPROEX 250MG *ER* TAB PO SCH (21:00)
[2017-01-04] MEDS: ACETAMINOPHEN TAB 650MG DOSE (2X325MG) PO PRN (21:41)
[2017-01-05] MEDS: ALBUTEROL 90 MCG/ACT 8GM HFA INHALER INH PRN (04:02)
[2017-01-05 06:44] VITALS: BP 107/67
[2017-01-05] MEDS: ASPIRIN 81 MG ENTERIC TAB PO SCH (09:00)
[2017-01-05] MEDS: FUROSEMIDE 40 MG TAB PO SCH (09:00)
[2017-01-05] MEDS: OLANZapine ORAL DISINTEGRATING TAB 5MG PO SCH ×2 (10:15→20:04)
[2017-01-05] MEDS: HALOPERIDOL 2 MG TAB PO SCH (10:16)
[2017-01-05] MEDS: BENZTROPINE 1 MG TAB PO SCH ×2 (10:16→20:03)
[2017-01-05 12:00] VITALS: BP 127/67
[2017-01-05 18:00] VITALS: BP 102/60
[2017-01-05] MEDS: DIVALPROEX 250MG *ER* TAB PO SCH (20:04)
[2017-01-05] MEDS: hydrOXYzine 25 MG TAB PO PRN (23:52)
[2017-01-06] MEDS: ACETAMINOPHEN TAB 650MG DOSE (2X325MG) PO PRN (02:16)
[2017-01-06 06:55] VITALS: BP 133/78
[2017-01-06] MEDS: BENZTROPINE 1 MG TAB PO SCH ×2 (08:17→21:00)
[2017-01-06] MEDS: HALOPERIDOL 2 MG TAB PO SCH (08:17)
[2017-01-06] MEDS: OLANZapine ORAL DISINTEGRATING TAB 5MG PO SCH ×2 (08:17→21:00)
[2017-01-06] MEDS: FUROSEMIDE 40 MG TAB PO SCH (08:17)
[2017-01-06] MEDS: ASPIRIN 81 MG ENTERIC TAB PO SCH (08:17)
[2017-01-06 11:40] VITALS: BP 120/70
[2017-01-06] MEDS ORDERED: MOM 30ML SUSPENSION UDC PO PRN (17:15)
[2017-01-06 18:00] VITALS: BP 130/70
[2017-01-06 20:00] VITALS: BP 128/76
[2017-01-06] MEDS: DIVALPROEX 250MG *ER* TAB PO SCH (21:00)
[2017-01-07 05:00] VITALS: BP 129/63
[2017-01-07] MEDS: hydrOXYzine 25 MG TAB PO PRN ×2 (05:10→18:41)
[2017-01-07] MEDS: ALBUTEROL 90 MCG/ACT 8GM HFA INHALER INH PRN (05:54)
[2017-01-07 06:24] VITALS: BP 144/94
[2017-01-07] MEDS: HALOPERIDOL 2 MG TAB PO SCH (09:00)
[2017-01-07] MEDS: BENZTROPINE 1 MG TAB PO SCH ×2 (09:00→21:36)
[2017-01-07] MEDS: ASPIRIN 81 MG ENTERIC TAB PO SCH (09:00)
[2017-01-07] MEDS: FUROSEMIDE 40 MG TAB PO SCH (09:00)
[2017-01-07 09:28] LABS: MEAN CORPUSCULAR HEMOGLOBIN 32.2 pg (27.0-33.0); MEAN CORPUSCULAR HGB CONC 34.7 g/dl (32.0-36.5); MEAN CORPUSCULAR VOLUME 92.9 fl (80.0-96.0); PLATELET COUNT, AUTOMATED 170 k/mm3 (150-450); RED CELL DISTRIBUTION WIDTH 12.8 % (11.5-14.5)
[2017-01-07] MEDS: OLANZapine ORAL DISINTEGRATING TAB 5MG PO SCH ×2 (09:37→21:36)
[2017-01-07 09:46] LABS: ALBUMIN 3.1 GM/DL (3.2-5.2); ALBUMIN/GLOBULIN RATIO 0.94 (1.00-1.93); ALKALINE PHOSPHATASE 84 U/L (45-117); ALT/SGPT 15 U/L (12-78); AST/SGOT 14 U/L (15-37); BILIRUBIN,DIRECT < 0.1 MG/DL (0.0-0.2); BILIRUBIN,TOTAL 0.3 MG/DL (0.2-1.0); TOTAL PROTEIN 6.4 GM/DL (6.4-8.2)
[2017-01-07 09:48] LABS: EOSINOPHILS 6 % (0-5)
[2017-01-07 11:28] VITALS: BP 134/78
[2017-01-07 18:00] VITALS: BP 114/56
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
[2017-01-07] MEDS: DIVALPROEX 250MG *ER* TAB PO SCH (21:00)
[2017-01-08 06:29] VITALS: BP 137/75
[2017-01-08] MEDS: FUROSEMIDE 40 MG TAB PO SCH (09:00)
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
[2017-01-08] MEDS: OLANZapine ORAL DISINTEGRATING TAB 5MG PO SCH ×2 (09:17→21:46)
[2017-01-08] MEDS: HALOPERIDOL 2 MG TAB PO SCH (09:17)
[2017-01-08] MEDS: BENZTROPINE 1 MG TAB PO SCH ×2 (09:17→21:46)
[2017-01-08] MEDS: ASPIRIN 81 MG ENTERIC TAB PO SCH (09:17)
[2017-01-08] MEDS: SODIUM CHLORIDE 0.9% NASAL GEL 15MG (AYR) PRN (09:18)
[2017-01-08] MEDS: hydrOXYzine 25 MG TAB PO PRN ×2 (16:03→22:16)
[2017-01-08 18:00] VITALS: BP 140/90
[2017-01-08] MEDS ORDERED: DIVALPROEX 250MG *ER* TAB PO SCH (21:00)
[2017-01-09 06:41] VITALS: BP 122/65
[2017-01-09] MEDS: ASPIRIN 81 MG ENTERIC TAB PO SCH ×2 (08:55→09:20)
[2017-01-09] MEDS: FUROSEMIDE 40 MG TAB PO SCH ×2 (08:55→09:20)
[2017-01-09] MEDS: HALOPERIDOL 2 MG TAB PO SCH ×2 (08:55→09:20)
[2017-01-09] MEDS: OLANZapine ORAL DISINTEGRATING TAB 5MG PO SCH ×3 (08:55→21:01)
[2017-01-09] MEDS: BENZTROPINE 1 MG TAB PO SCH ×3 (08:55→21:01)
[2017-01-09 12:00] VITALS: BP 126/76
[2017-01-09] MEDS: hydrOXYzine 25 MG TAB PO PRN ×3 (12:23→21:01)
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
[2017-01-09] MEDS: ACETAMINOPHEN TAB 650MG DOSE (2X325MG) PO PRN (16:36)
[2017-01-09 18:00] VITALS: BP 130/78
[2017-01-09] MEDS ORDERED: DIVALPROEX 500MG *ER* TAB PO SCH (21:00)
[2017-01-10] MEDS: ACETAMINOPHEN TAB 650MG DOSE (2X325MG) PO PRN ×3 (01:28→20:08)
[2017-01-10] MEDS: hydrOXYzine 25 MG TAB PO PRN ×3 (03:51→15:26)
[2017-01-10 06:23] VITALS: BP 129/71
[2017-01-10] MEDS: ASPIRIN 81 MG ENTERIC TAB PO SCH (08:28)
[2017-01-10] MEDS: FUROSEMIDE 40 MG TAB PO SCH (08:28)
[2017-01-10] MEDS: BENZTROPINE 1 MG TAB PO SCH ×2 (08:28→20:08)
[2017-01-10] MEDS: OLANZapine ORAL DISINTEGRATING TAB 5MG PO SCH ×3 (08:29→22:51)
[2017-01-10] MEDS: HALOPERIDOL 2 MG TAB PO SCH ×2 (08:59→21:00)
[2017-01-10] MEDS: POLYVINYL ALCOHOL OPHTH SOLN 15 ML(LIQUITEARS) OU PRN (10:13)
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
[2017-01-10 18:00] VITALS: BP 117/84
[2017-01-11] MEDS: BENZTROPINE 1 MG TAB PO SCH ×2 (08:37→21:00)
[2017-01-11] MEDS: ASPIRIN 81 MG ENTERIC TAB PO SCH (08:37)
[2017-01-11] MEDS: DIVALPROEX 250MG *ER* TAB PO SCH (08:37)
[2017-01-11] MEDS: OLANZapine ORAL DISINTEGRATING TAB 5MG PO SCH ×2 (08:37→21:12)
[2017-01-11] MEDS: FUROSEMIDE 40 MG TAB PO SCH (08:37)
[2017-01-11] MEDS: ACETAMINOPHEN TAB 650MG DOSE (2X325MG) PO PRN (09:51)
[2017-01-11] MEDS: hydrOXYzine 25 MG TAB PO PRN ×3 (09:51→22:03)
[2017-01-11 18:00] VITALS: BP 122/68
[2017-01-11] MEDS: HALOPERIDOL 2 MG TAB PO SCH (21:00)
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
[2017-01-11] MEDS: ALBUTEROL 90 MCG/ACT 8GM HFA INHALER INH PRN (21:34)
[2017-01-12] MEDS: ACETAMINOPHEN TAB 650MG DOSE (2X325MG) PO PRN ×3 (00:22→23:14)
[2017-01-12 06:28] VITALS: BP 111/63
[2017-01-12] MEDS: BENZTROPINE 1 MG TAB PO SCH ×2 (08:31→23:11)
[2017-01-12] MEDS: OLANZapine ORAL DISINTEGRATING TAB 5MG PO SCH ×2 (08:31→23:11)
[2017-01-12] MEDS: DIVALPROEX 250MG *ER* TAB PO SCH (08:31)
[2017-01-12] MEDS: ASPIRIN 81 MG ENTERIC TAB PO SCH (08:31)
[2017-01-12] MEDS: FUROSEMIDE 40 MG TAB PO SCH (08:31)
[2017-01-12] MEDS: MAALOX 30 ML SUSP *UDC PO PRN (15:28)
[2017-01-12 18:00] VITALS: BP 123/79
[2017-01-12] MEDS: hydrOXYzine 25 MG TAB PO PRN ×2 (18:23→23:14)
[2017-01-12] MEDS: HALOPERIDOL 2 MG TAB PO SCH (21:00)
[2017-01-12 22:30] VITALS: BP 134/80
[2017-01-13] MEDS: ALBUTEROL 90 MCG/ACT 8GM HFA INHALER INH PRN (00:23)
[2017-01-13 06:54] VITALS: BP 119/68
[2017-01-13] MEDS: BENZTROPINE 1 MG TAB PO SCH ×2 (10:30→19:58)
[2017-01-13] MEDS: OLANZapine ORAL DISINTEGRATING TAB 5MG PO SCH ×2 (10:30→19:58)
[2017-01-13] MEDS: ASPIRIN 81 MG ENTERIC TAB PO SCH (10:30)
[2017-01-13] MEDS: DIVALPROEX 250MG *ER* TAB PO SCH (10:30)
[2017-01-13] MEDS: hydrOXYzine 25 MG TAB PO PRN (10:30)
[2017-01-13] MEDS: FUROSEMIDE 40 MG TAB PO SCH (10:31)
[2017-01-13] MEDS: POLYVINYL ALCOHOL OPHTH SOLN 15 ML(LIQUITEARS) OU PRN (12:17)
[2017-01-13] MEDS ORDERED: HALOPERIDOL 2 MG TAB PO ONE (13:15)
[2017-01-13 18:00] VITALS: BP 163/64
[2017-01-13] MEDS: HALOPERIDOL 2 MG TAB PO SCH (19:58)
[2017-01-13] MEDS: ACETAMINOPHEN TAB 650MG DOSE (2X325MG) PO PRN (19:58)
[2017-01-14 06:20] VITALS: BP 110/64
[2017-01-14] MEDS: DIVALPROEX 250MG *ER* TAB PO SCH (08:10)
[2017-01-14] MEDS: FUROSEMIDE 40 MG TAB PO SCH (08:10)
[2017-01-14] MEDS: BENZTROPINE 1 MG TAB PO SCH (08:11)
[2017-01-14] MEDS: OLANZapine ORAL DISINTEGRATING TAB 5MG PO SCH (08:11)
[2017-01-14] MEDS: ASPIRIN 81 MG ENTERIC TAB PO SCH (08:11)
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
[2017-01-14] MEDS ORDERED: OLAN5ZYD PO (11:24)
[2017-01-14] MEDS ORDERED: HALO2TA PO (11:24)
[2017-01-14] MEDS ORDERED: BENZ1TA PO (11:24)
[2017-01-14] MEDS ORDERED: HYDR25T PO (11:24)
[2017-01-14] MEDS ORDERED: DEPA250T2 PO (11:24)
[2017-01-14] MEDS: hydrOXYzine 25 MG TAB PO PRN (11:29)
== END 2017-01-14 12:30 | DRG 750 ==
LOC: EDBD 20:25 → M ED 21:54 → M ED INP 12-06 03:50 → M PSY 12-06 08:15
PROVIDERS: ADMIT Psychiatry & Neurology Psychiatry; ATTEND Internal Medicine Addiction Medicine
DX: F20.1 Disorganized schizophrenia (principal); F12.20 Cannabis dependence, uncomplicated; F17.210 Nicotine dependence, cigarettes, uncomplicated; E78.5 Hyperlipidemia, unspecified; I10 Essential (primary) hypertension; G43.909 Migraine, unspecified, not intractable, without status migrainosus; J44.9 Chronic obstructive pulmonary disease, unspecified; M54.5 Low back pain; R26.81 Unsteadiness on feet; S92.335A Nondisplaced fracture of third metatarsal bone, left foot, initial encounter for closed fracture; W19.XXXA Unspecified fall, initial encounter; Y92.10 Unspecified residential institution as the place of occurrence of the external cause; F10.10 Alcohol abuse, uncomplicated; Z79.82 Long term (current) use of aspirin; Z79.899 Other long term (current) drug therapy; Z91.14 Patient's other noncompliance with medication regimen

== ENCOUNTER 2017-07-05 13:29 | Inpatient (IN) | payer MEDICAID, MEDICARE, OTHER ==
[~2017-07-05] VITALS: Ht 167.6 cm; Wt 73.0 kg
[~2017-07-05 13:29] MED LIST changes: +ASPI81CH; +BENZ-52; +BENZ-52 PO; +DEPA500T2; +DEPA500T2 PO; +FURO40TA2 PO; +HALO2TA PO; +HYDR-3363 PO; +INVE234I; +INVE234I IM; +LASI40TA; +OLAN20TA; +OLAN20TA PO; +OLAN5ZYD PO; +TRAZ50TA11 PO; -TRAZ50TA4 PO; +ZYPR20TA3
[2017-07-05] MEDS ORDERED: CALC1TAB21 PO (13:58)
[2017-07-05] MEDS ORDERED: DIVA250T PO (13:58)
[2017-07-05] MEDS ORDERED: ARIP1TAB4 PO (15:51)
[2017-07-05] MEDS ORDERED: FLUP25VL IM (15:51)
[2017-07-05] MEDS ORDERED: BENZ-52 PO (16:41)
[2017-07-05] MEDS ORDERED: VENTAER INH (16:41)
[2017-07-05] MEDS ORDERED: BAYE325T12 PO (16:41)
[2017-07-05] MEDS ORDERED: VITA100067 PO (16:41)
[2017-07-05] MEDS ORDERED: DEPA250T32 PO (16:41)
[2017-07-05 20:06] VITALS: BP 114/79
[2017-07-05] MEDS ORDERED: traZODone 50 MG TAB PO PRN (21:00)
[2017-07-05] MEDS ORDERED: DIVALPROEX 500 MG TAB PO SCH (21:00)
[2017-07-05] MEDS: BENZTROPINE 1 MG TAB PO SCH (21:53)
[2017-07-05] MEDS: ALBUTEROL 90 MCG/ACT 8GM HFA INHALER INH PRN (21:53)
[2017-07-06 07:14] VITALS: BP 117/65
[2017-07-06] MEDS: ALBUTEROL 90 MCG/ACT 8GM HFA INHALER INH PRN (09:02)
[2017-07-06] MEDS: VITAMIN D 1,000 INTERNATIONAL UNITS TABLET PO SCH (09:03)
[2017-07-06] MEDS: ASPIRIN 325 MG TAB PO SCH (09:03)
[2017-07-06] MEDS: FUROSEMIDE 40 MG TAB PO SCH (09:03)
[2017-07-06] MEDS: ARIPiprazole 2 MG TAB PO SCH (09:03)
[2017-07-06] MEDS: BENZTROPINE 1 MG TAB PO SCH ×2 (09:03→20:29)
[2017-07-06] MEDS: ACETAMINOPHEN TAB 650MG DOSE (2X325MG) PO PRN ×2 (09:04→15:43)
[2017-07-06 18:26] VITALS: BP 117/76
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
[2017-07-06] MEDS: DIVALPROEX 250 MG TAB PO SCH (20:29)
[2017-07-07 06:00] VITALS: BP 117/57
[2017-07-07] MEDS: DIVALPROEX 500 MG TAB PO SCH (08:15)
[2017-07-07] MEDS: BENZTROPINE 1 MG TAB PO SCH ×2 (08:15→20:29)
[2017-07-07] MEDS: VITAMIN D 1,000 INTERNATIONAL UNITS TABLET PO SCH (08:15)
[2017-07-07] MEDS: ARIPiprazole 2 MG TAB PO SCH (08:15)
[2017-07-07] MEDS: ASPIRIN 325 MG TAB PO SCH (08:15)
[2017-07-07] MEDS: FUROSEMIDE 40 MG TAB PO SCH (08:15)
[2017-07-07] MEDS: PANTOPRAZOLE 40MG TAB (PROTONIX) PO SCH (08:15)
--- NOTE | 2017-07-07 09:16 | HPE ---
DATE OF ADMISSION: 07/05/2017 HISTORY OF PRESENT ILLNESS: Please refer to psychiatric history and evaluation for further details on this admission. This examination and history is intended for medical issues, which may need treatment, followup or consult on this 66-year-old female with a history of schizophrenia who was transferred from [facility]. SOCIAL HISTORY: She lives in [place]. She lives alone. She has a cat. She is single. She has two children estranged from her. They were adopted at a young age. Ethyl alcohol (EtOH): Rarely drinks, maybe one a month she says. She smokes marijuana once or twice or week. ALLERGIES: No known allergies. PAST MEDICAL HISTORY: 1. Schizophrenia. 2. Bipolar. 3. Depression. 4. Hyperlipidemia. 5. History of migraine headaches. 6. Chronic obstructive pulmonary disease (COPD). 7. Tobacco use. 8. Substance abuse. 9. Hypertension. PAST SURGICAL HISTORY: 1. Exploratory laparoscopy. 2. Appendectomy. 3. Hernia repair. REVIEW OF SYSTEMS: 10-system review was done and was unremarkable other than she has complaints of a headache and a right upper toothache. No blurred or double vision. No weakness of extremities, tingling or numbness. Otherwise, unremarkable. PHYSICAL EXAMINATION: 66-year-old cooperative female in no acute distress. Height 66 inches, weight 73 kg, body mass index (BMI) 26. Blood pressure 114/79, pulse 87, respirations 18, temperature 98.3. Patient is alert and oriented to person and place. Complains of a headache, is rambling about the people upstairs from her, but is pleasant and cooperative. Pupils equal and react to light. Extraocular muscles intact. Cornea and sclerae clear. Conjunctivae were normal. No facial asymmetry. Dentition is poor. Tongue is midline. Neck is supple without lymphadenopathy. No thyromegaly, no goiter. Carotids 2+ without bruit. Chest clear to auscultation without wheeze or retraction. Heart is regular. Abdomen is benign. Bowel sounds positive. Genitourinary/rectal: Not done. Extremities show equal strength, full range of motion. No cyanosis, clubbing or edema. Peripheral pulses equal and palpable bilaterally. Skin is warm and dry. Cranial nerves III-XII grossly intact. IMPRESSION/PLAN: 1. Psychiatric plan per psychiatry. 2. Headache, toothache. Will give ibuprofen 400 mg by mouth every 6 hours as needed for pain or headache. 3. Hypertension. Stable. 4. History of chronic obstructive pulmonary disease (COPD). Clinically stable. 5. History of hyperlipidemia.
--- NOTE | 2017-07-07 17:38 | MHIPN ---
DATE: 07/07/2017 CHIEF COMPLAINT: Says has a stomachache. SUBJECTIVE: Seen for followup. Indicates was not able to sleep last night, had a stomachache, says tends to hurt her during the day as well, and she is convinced that she is being persecuted by "the whole of [place]," suggests that others want her and when asked for specifics, suggests the state of [place]. She feels this contributes to her difficulties with her stomach. Has been eating. Says one of her teeth hurt her. MENTAL STATUS EXAMINATION: She is lying in bed, mildly tearful at times, but coherent. Affect restricted in range. Denies any suicidal thoughts or intents. Remains paranoid. Judgment and insight are compromised. ASSESSMENT: Schizophrenia. PLAN: Continue current care. Would suggest increasing the Abilify to 5 mg daily to help address her psychosis. Would also look at confirming when she is due for her intramuscular Prolixin shot, and then reassess its requirements. Meanwhile, she is to be encouraged to participate in activities in the unit. VITAL SIGNS: Blood pressure 117/57, pulse 80, temperature 98.7.
[2017-07-07 18:00] VITALS: BP 118/79
[2017-07-07] MEDS: DIVALPROEX 250 MG TAB PO SCH (20:29)
[2017-07-08] MEDS: ACETAMINOPHEN TAB 650MG DOSE (2X325MG) PO PRN ×2 (04:56→19:20)
[2017-07-08] MEDS: OLANZapine ORAL DISINTEGRATING TAB 5MG PO PRN ×3 (04:56→22:11)
[2017-07-08 06:38] VITALS: BP 136/75
[2017-07-08] MEDS: BENZTROPINE 1 MG TAB PO SCH ×2 (08:20→20:08)
[2017-07-08] MEDS: VITAMIN D 1,000 INTERNATIONAL UNITS TABLET PO SCH (08:20)
[2017-07-08] MEDS: ASPIRIN 325 MG TAB PO SCH (08:20)
[2017-07-08] MEDS: PANTOPRAZOLE 40MG TAB (PROTONIX) PO SCH (08:20)
[2017-07-08] MEDS: FUROSEMIDE 40 MG TAB PO SCH (08:20)
[2017-07-08] MEDS: DIVALPROEX 500 MG TAB PO SCH (08:22)
[2017-07-08] MEDS ORDERED: OLANZapine ORAL DISINTEGRATING TAB 5MG PO ONE (10:45)
--- NOTE | 2017-07-08 15:44 | IPN ---
DATE: 07/08/2017 66-year-old female with a history of psychosis and schizophrenia admitted to our unit with paranoid delusions. The patient was reporting that her neighbors were performing witchcraft on her, resulting in radiation in her body. She was talking about food poisoning and radiation coming from the television, as well as reporting auditory hallucinations. MEDICATIONS: - Depakote 750 mg by mouth at night - Abilify 5 mg by mouth in the morning - Cogentin 1 mg by mouth twice a day - trazodone 50 mg by mouth at night as needed for insomnia Apparently she was on Prolixin intramuscularly, long-acting. SUBJECTIVE: "I am feeling very anxious and upset." OBJECTIVE: The patient is paranoid, delusional, anxious, pacing the floor. She refused to take the Depakote this morning. MENTAL STATUS EXAMINATION: The patient is dressed in [facility]. The patient is partially cooperative and has poor eye contact. Speech is pressured. Mood is anxious. Affect is blunted. The patient continues paranoid. Appears to be reacting to internal stimuli. Memory, attention, and concentration are impaired. Insight and judgment very poor. ASSESSMENT: Psychosis/schizophrenia. PLAN: 1. Change Depakote to 750 mg by mouth at night. 2. Continue with Abilify 5 mg by mouth in the morning. 3. Discontinue trazodone. 4. Start Seroquel 50 mg by mouth at night as needed for insomnia. 5. Continue Cogentin 1 mg by mouth twice a day. 6. Med reconciliation for Prolixin intramuscularly long-acting shots.
[2017-07-08 18:00] VITALS: BP 132/81
[2017-07-08] MEDS ORDERED: DIVALPROEX 250 MG TAB PO SCH (21:00)
[2017-07-09] MEDS: IBUPROFEN 400 MG TAB PO PRN ×2 (00:59→16:32)
[2017-07-09 07:05] VITALS: BP 136/71
[2017-07-09] MEDS: VITAMIN D 1,000 INTERNATIONAL UNITS TABLET PO SCH (08:17)
[2017-07-09] MEDS: ASPIRIN 325 MG TAB PO SCH (08:17)
[2017-07-09] MEDS: BENZTROPINE 1 MG TAB PO SCH ×2 (08:17→21:47)
[2017-07-09] MEDS: FUROSEMIDE 40 MG TAB PO SCH (08:17)
[2017-07-09] MEDS: PANTOPRAZOLE 40MG TAB (PROTONIX) PO SCH (08:18)
[2017-07-09] MEDS: ALBUTEROL 90 MCG/ACT 8GM HFA INHALER INH PRN (11:02)
[2017-07-09] MEDS: ACETAMINOPHEN TAB 650MG DOSE (2X325MG) PO PRN ×2 (12:10→21:49)
--- NOTE | 2017-07-09 15:38 | MHIPN ---
DATE OF SERVICE: 07/09/2017 66-year-old female with a history of schizophrenia admitted to our unit with paranoid delusions. She was talking about neighbors performing witchcraft on her, talking about radiation in her body, and feeling that she was poisoned. MEDICATIONS: - Depakote 750 mg by mouth at night - Abilify 5 mg by mouth in the morning - Cogentin 1 mg by mouth twice a day - trazodone 50 mg by mouth at night as needed for insomnia Patient was on Prolixin Decanoate intramuscular (IM) before admission. SUBJECTIVE: "I am feeling very anxious and upset". OBJECTIVE: The patient continues to be paranoid, delusional, anxious, pacing the floor. She refused to take Depakote last night. MENTAL STATUS EXAMINATION: The patient is dressed in [facility]. The patient is partially cooperative. Has poor eye contact. Speech is pressured. Mood is anxious. Affect is blunted. The patient continues to be paranoid and delusional. Appears to be reacting to internal stimuli. Memory, attention, and concentration are impaired. Insight and judgment is very poor. ASSESSMENT: 1. Schizophrenia. PLAN: 1. Continue Depakote 750 mg by mouth at night. 2. Continue Abilify 5 mg by mouth in the morning. 3. Continue trazodone. 4. Seroquel 50 mg by mouth at night as needed for insomnia. 5. Cogentin 1 mg by mouth twice a day.
[2017-07-09 18:00] VITALS: BP 138/50
[2017-07-09] MEDS ORDERED: DIVALPROEX 250 MG TAB PO SCH (21:00)
[2017-07-09] MEDS ORDERED: DIVALPROEX 500 MG TAB PO SCH (21:00)
[2017-07-09] MEDS: OLANZapine ORAL DISINTEGRATING TAB 5MG PO PRN (21:47)
[2017-07-10 06:46] VITALS: BP 120/79
[2017-07-10] MEDS: OLANZapine ORAL DISINTEGRATING TAB 5MG PO PRN (08:48)
[2017-07-10] MEDS: ACETAMINOPHEN TAB 650MG DOSE (2X325MG) PO PRN (08:48)
[2017-07-10] MEDS: PANTOPRAZOLE 40MG TAB (PROTONIX) PO SCH (09:40)
[2017-07-10] MEDS: FUROSEMIDE 40 MG TAB PO SCH (09:40)
[2017-07-10] MEDS: BENZTROPINE 1 MG TAB PO SCH ×2 (09:40→21:00)
[2017-07-10] MEDS: VITAMIN D 1,000 INTERNATIONAL UNITS TABLET PO SCH (09:40)
[2017-07-10] MEDS: ASPIRIN 325 MG TAB PO SCH (09:40)
[2017-07-10] MEDS: fluPHENAZine DECAN 25MG/ML 5ML VIAL (J2680) IM SCH ×2 (12:00→14:05)
[2017-07-10] MEDS ORDERED: clonazePAM 0.5 MG TAB PO PRN (15:00)
--- NOTE | 2017-07-10 19:34 | IPN ---
DATE: 07/10/2017 66-year-old female with history of schizophrenia admitted to our unit with paranoid delusions. The patient was talking about neighbors performing witchcraft on her. Talking about radiation in her body and feeling that she was poisoned. MEDICATIONS: - Depakote 750 mg by mouth at bedtime - Abilify 5 mg by mouth every morning - cogentin 1 mg by mouth twice a day - trazodone 50 mg by mouth at bedtime as needed for insomnia - prolixin decanoate 12.5 mg intramuscular (IM) every 4 weeks SUBJECTIVE: "I do not want to get ". OBJECTIVE: No major changes. The patient continues very paranoid, delusional, irritable at times, angry, continues to respond to internal stimuli, to auditory and visual hallucinations. She has been refusing to take the Depakote however, she takes the rest of the medication fine. MENTAL STATUS EXAM: The patient dressed in [facility]. The patient is uncooperative this morning. Very poor eye contact. Dismissive. Speech is pressured. Mood is very anxious at times. Angry. Affect is blunted. The patient continues to have paranoid delusions. Has auditory and visual hallucinations. Memory, attention and concentration are impaired. Insight and judgment is very poor. ASSESSMENT: Schizophrenia. PLAN: 1. Discontinue Depakote. 2. Prolixin D 25 mg IM today. 3. Continue Abilify 5 mg by mouth every morning. 4. Continue Seroquel 50 mg by mouth at bedtime as needed for insomnia. 5. Cogentin 1 mg by mouth twice a day. 6. Continue close observation. 7. Continue medication management and support as tolerated by the patient.
[2017-07-11] MEDS: OLANZapine ORAL DISINTEGRATING TAB 5MG PO PRN (01:59)
[2017-07-11 07:18] VITALS: BP 150/90
[2017-07-11] MEDS: BENZTROPINE 1 MG TAB PO SCH ×4 (10:17→22:36)
[2017-07-11] MEDS: FUROSEMIDE 40 MG TAB PO SCH (10:17)
[2017-07-11] MEDS: ASPIRIN 325 MG TAB PO SCH (10:17)
[2017-07-11] MEDS: VITAMIN D 1,000 INTERNATIONAL UNITS TABLET PO SCH (10:18)
[2017-07-11] MEDS: PANTOPRAZOLE 40MG TAB (PROTONIX) PO SCH (10:18)
[2017-07-11 18:00] VITALS: BP 118/80
--- NOTE | 2017-07-11 21:02 | MHIPN ---
DATE: 07/11/2017 66-year-old female with history of schizophrenia admitted to our unit for paranoid delusions. Patient was talking about her neighbors performing witchcraft on her, talking about radiation in her body and feeling that she was poisoned. MEDICATIONS: - Abilify 5 mg by mouth every morning - Cogentin 1 mg by mouth twice a day - trazodone 50 mg by mouth nightly as needed for insomnia - Prolixin decanoate 25 mg intramuscular (IM) every 4 weeks SUBJECTIVE: "I have been very busy." OBJECTIVE: Patient has improved a little from yesterday, she is not as angry, irritable and impulsive. She was started on a low dosage of Klonopin twice a day and also the Prolixin decanoate shot was given. She tolerated well the medication, no evidence of side effects. MENTAL STATUS EXAMINATION: Patient is dressed in [facility]. Patient is cooperative during exam. Has very poor eye contact. Patient is paranoid, delusional, reacting to internal stimuli. Memory, attention, and concentration are impaired. Insight and judgment is very poor. ASSESSMENT: Schizophrenia. PLAN: 1. Continue Abilify 5 mg by mouth every morning. 2. Continue Seroquel 50 mg by mouth nightly as needed for insomnia. 3. Continue Cogentin 1 mg by mouth twice a day. 4. Klonopin 0.5 mg by mouth twice a day as needed for anxiety. 5. Prolixin decanoate 25 mg IM every 4 weeks. 6. Continue close observation.
[2017-07-12 06:59] VITALS: BP 140/84
[2017-07-12] MEDS: BENZTROPINE 1 MG TAB PO SCH ×2 (08:27→22:10)
[2017-07-12] MEDS: ASPIRIN 325 MG TAB PO SCH (08:27)
[2017-07-12] MEDS: FUROSEMIDE 40 MG TAB PO SCH (08:28)
[2017-07-12] MEDS: VITAMIN D 1,000 INTERNATIONAL UNITS TABLET PO SCH (08:28)
[2017-07-12] MEDS: PANTOPRAZOLE 40MG TAB (PROTONIX) PO SCH (08:28)
[2017-07-12] MEDS: OLANZapine ORAL DISINTEGRATING TAB 5MG PO PRN ×2 (10:24→16:15)
[2017-07-12 18:00] VITALS: BP 110/84
[2017-07-13 07:08] VITALS: BP 112/68
[2017-07-13] MEDS: PANTOPRAZOLE 40MG TAB (PROTONIX) PO SCH (09:00)
[2017-07-13] MEDS: ASPIRIN 325 MG TAB PO SCH (09:00)
[2017-07-13] MEDS: FUROSEMIDE 40 MG TAB PO SCH (09:00)
[2017-07-13] MEDS: VITAMIN D 1,000 INTERNATIONAL UNITS TABLET PO SCH (09:00)
[2017-07-13] MEDS: BENZTROPINE 1 MG TAB PO SCH ×2 (10:20→20:18)
--- NOTE | 2017-07-13 14:33 | MHIPN ---
DATE OF SERVICE: 07/12/2017 A 66-year-old female with history of schizophrenia admitted to our unit for paranoid delusion. The patient was talking about her neighbors performing witchcraft on her. She was also talking about radiation in her body and feeling that she was poisoned. MEDICATIONS: - Abilify 5 mg by mouth every morning - Cogentin 1 mg by mouth twice a day - trazodone 50 mg by mouth nightly as needed for insomnia - Prolixin decanoate 25 mg intramuscular (IM) every 4 weeks SUBJECTIVE: "Leave me alone." OBJECTIVE: The patient is not willing to give information this morning. She has been in the room and not interacting with other patients and staff. The patient appears to be less irritable and impulsive. Is compliant with current medication and appears to be sleeping better. The patient has no insight, and judgment is poor. MENTAL STATUS EXAMINATION: The patient is dressed in [facility]. The patient is unwilling to discuss her problems today or cooperated with mental status. Very poor eye contact. The patient continues paranoid, delusional, reacting to internal stimuli. Memory, attention, and concentration are impaired. Insight and judgment is very poor. ASSESSMENT: Schizophrenia. PLAN: 1. Abilify 5 mg by mouth every morning. 2. Seroquel 50 mg by mouth nightly as needed for insomnia. 3. Cogentin 1 mg by mouth twice a day. 4. Klonopin 0.5 mg by mouth twice a day as needed for anxiety. 5. Prolixin decanoate 25 mg IM every 4 weeks. 6. Continue close observation.
[2017-07-13] MEDS: ACETAMINOPHEN TAB 650MG DOSE (2X325MG) PO PRN (16:42)
[2017-07-13 18:00] VITALS: BP 145/82
[2017-07-13] MEDS: OLANZapine ORAL DISINTEGRATING TAB 5MG PO PRN (20:18)
[2017-07-13] MEDS: IBUPROFEN 400 MG TAB PO PRN (20:19)
[2017-07-14 06:00] VITALS: BP 132/64
[2017-07-14] MEDS: VITAMIN D 1,000 INTERNATIONAL UNITS TABLET PO SCH (08:33)
[2017-07-14] MEDS: BENZTROPINE 1 MG TAB PO SCH ×2 (08:34→20:32)
[2017-07-14] MEDS: PANTOPRAZOLE 40MG TAB (PROTONIX) PO SCH (08:34)
[2017-07-14] MEDS: ASPIRIN 325 MG TAB PO SCH (08:34)
[2017-07-14] MEDS: FUROSEMIDE 40 MG TAB PO SCH (08:35)
[2017-07-14] MEDS: ALBUTEROL 90 MCG/ACT 8GM HFA INHALER INH PRN (14:28)
[2017-07-14] MEDS: MAALOX 30 ML SUSP *UDC PO PRN (14:36)
[2017-07-14 18:00] VITALS: BP 133/84
[2017-07-15 06:25] VITALS: BP 140/84
[2017-07-15] MEDS: BENZTROPINE 1 MG TAB PO SCH ×3 (09:00→21:12)
[2017-07-15] MEDS: ASPIRIN 325 MG TAB PO SCH (09:00)
[2017-07-15] MEDS: PANTOPRAZOLE 40MG TAB (PROTONIX) PO SCH (09:00)
[2017-07-15] MEDS: VITAMIN D 1,000 INTERNATIONAL UNITS TABLET PO SCH (09:00)
[2017-07-15] MEDS: FUROSEMIDE 40 MG TAB PO SCH (09:00)
[2017-07-15 18:00] VITALS: BP 136/82
[2017-07-15] MEDS: OLANZapine ORAL DISINTEGRATING TAB 5MG PO PRN (22:46)
[2017-07-15] MEDS: ACETAMINOPHEN TAB 650MG DOSE (2X325MG) PO PRN (23:38)
[2017-07-16 06:47] VITALS: BP 129/73
[2017-07-16] MEDS: BENZTROPINE 1 MG TAB PO SCH ×2 (08:20→21:00)
[2017-07-16] MEDS: FUROSEMIDE 40 MG TAB PO SCH (08:20)
[2017-07-16] MEDS: VITAMIN D 1,000 INTERNATIONAL UNITS TABLET PO SCH (08:20)
[2017-07-16] MEDS: ASPIRIN 325 MG TAB PO SCH (08:20)
[2017-07-16] MEDS: PANTOPRAZOLE 40MG TAB (PROTONIX) PO SCH (08:22)
--- NOTE | 2017-07-16 13:24 | MHIPN ---
DATE: 07/15/2017 66-year-old female with history of schizophrenia admitted to our unit for paranoid delusions. The patient was talking about her neighbors performing witchcraft on her. She also was talking about radiation in her body and feeling that she was poisoned. MEDICATIONS: - Prolixin decanoate 25 mg IM every 4 weeks - Abilify 5 mg by mouth every morning - Cogentin 1 mg by mouth twice a day - trazodone 50 mg by mouth at bedtime as needed for insomnia SUBJECTIVE: "I'm really busy today." OBJECTIVE: Patient is improving slowly, especially since she received the Prolixin decanoate shot. The patient still has rambling fast speech and paranoid delusions, but is less impulsive, irritable and intrusive. She is compliant with the medication. Her insight and judgment is very poor. MENTAL STATUS EXAMINATION: Patient is dressed in [facility]. Patient is partially cooperative, has poor eye contact. The patient continues to paranoid, but improving. Memory, attention and concentration are impaired. Insight and judgment is poor. ASSESSMENT: 1. Schizophrenia. PLAN: 1. Continue Prolixin decanoate 25 mg IM every 4 weeks. 2. Continue Abilify 5 mg by mouth every morning. 3. Continue Cogentin 1 mg by mouth twice a day. 4. Continue medication management, individual and group therapy as tolerated by the patient.
[2017-07-16] MEDS: ACETAMINOPHEN TAB 650MG DOSE (2X325MG) PO PRN (13:45)
[2017-07-16 18:00] VITALS: BP 126/74
[2017-07-16] MEDS: IBUPROFEN 400 MG TAB PO PRN (18:43)
[2017-07-16] MEDS: ALBUTEROL 90 MCG/ACT 8GM HFA INHALER INH PRN (22:19)
[2017-07-17] MEDS: OLANZapine ORAL DISINTEGRATING TAB 5MG PO PRN (00:26)
[2017-07-17] MEDS: BENZTROPINE 1 MG TAB PO SCH ×4 (00:28→22:47)
[2017-07-17] MEDS: MAALOX 30 ML SUSP *UDC PO PRN (02:46)
[2017-07-17 06:40] VITALS: BP 112/59
[2017-07-17] MEDS: VITAMIN D 1,000 INTERNATIONAL UNITS TABLET PO SCH ×2 (09:00→10:25)
[2017-07-17] MEDS: PANTOPRAZOLE 40MG TAB (PROTONIX) PO SCH (09:00)
[2017-07-17] MEDS: FUROSEMIDE 40 MG TAB PO SCH ×2 (09:00→10:26)
[2017-07-17] MEDS: ASPIRIN 325 MG TAB PO SCH (09:37)
[2017-07-17] MEDS: ALBUTEROL 90 MCG/ACT 8GM HFA INHALER INH PRN (10:53)
--- NOTE | 2017-07-17 10:54 | MHIPN ---
DATE: 07/16/2017 66-year-old female with history of schizophrenia admitted to out unit for paranoid delusion. The patient talking about the neighbors performing witchcraft on her. She was talking about radiation in her body and feeling that she was poisoned. MEDICATIONS: - Prolixin decanoate 25 mg IM every 4 weeks. - Abilify 5 mg by mouth every morning. - Cogentin 1 mg by mouth twice a day - Trazodone as needed for insomnia. SUBJECTIVE: "When do think I can go home". OBJECTIVE: The patient continues to improve and although she is religiously preoccupied, she is interacting much better with other patients and staff. The patient is no longer agitated. No longer irritable or angry. The patient is compliant with the medication. Her insight and judgment continues to be limited. MENTAL STATUS EXAMINATION: The patient is dressed in [facility]. The patient is more cooperative, has better eye contact. Patient continues to be religiously preoccupied and at times paranoid, but is not acting on her delusions and interacting better with other patients. Memory, attention and concentration are still impaired. Insight and judgment continues to be poor. ASSESSMENT: Schizophrenia: PLAN: 1. Continue Prolixin decanoate 25 mg IM every 4 weeks. 2. Continue Abilify 5 mg by mouth daily. 3. Continue Cogentin 1 mg by mouth twice a day. 4. Continue medication management, individual and group therapy as tolerated by the patient.
[2017-07-17] MEDS: ACETAMINOPHEN TAB 650MG DOSE (2X325MG) PO PRN (14:39)
[2017-07-17 18:30] VITALS: BP 117/76
--- NOTE | 2017-07-17 20:51 | IPN ---
DATE: 07/17/2017 66-year-old female with history of schizophrenia admitted to our unit for paranoid delusions. The patient was talking about her neighbors performing witchcraft on her. She was also talking about radiation in her body and feeling that she was poisoned. MEDICATIONS: - prolixin decanoate 25 mg intramuscular (IM) every 4 weeks - Abilify 5 mg by mouth daily - cogentin 1 mg by mouth twice a day - trazodone as needed for insomnia SUBJECTIVE: "The patient is selectively mute". This patient is worse today, is more paranoid. Unwilling to talk and turning her face away. There is no evidence of side effects from the medication. Appears to react to internal stimuli. MENTAL STATUS EXAM: The patient dressed in [facility]. The patient is selectively mute. Does not want to interact in one to one. There is no evidence of side effects from the medication. Insight and judgment is very poor. ASSESSMENT: Schizophrenia. PLAN: 1. Continue prolixin decanoate 25 mg intramuscular every 4 weeks. 2. Continue Abilify 5 mg by mouth daily. 3. Continue cogentin 1 mg by mouth twice a day. 4. Continue medication management, individual and group therapy.
[2017-07-18] MEDS: ACETAMINOPHEN TAB 650MG DOSE (2X325MG) PO PRN (03:13)
[2017-07-18] MEDS: MAALOX 30 ML SUSP *UDC PO PRN ×2 (03:15→23:28)
[2017-07-18 06:30] VITALS: BP 107/59
[2017-07-18] MEDS: ASPIRIN 325 MG TAB PO SCH (08:44)
[2017-07-18] MEDS: VITAMIN D 1,000 INTERNATIONAL UNITS TABLET PO SCH (08:44)
[2017-07-18] MEDS: BENZTROPINE 1 MG TAB PO SCH ×3 (08:44→23:00)
[2017-07-18] MEDS: PANTOPRAZOLE 40MG TAB (PROTONIX) PO SCH (08:46)
[2017-07-18] MEDS: FUROSEMIDE 40 MG TAB PO SCH (08:46)
[2017-07-18] MEDS: OLANZapine ORAL DISINTEGRATING TAB 5MG PO PRN (11:34)
--- NOTE | 2017-07-18 16:39 | MHIPN ---
DATE: 07/18/2017 66-year-old female with history of schizophrenia admitted to our unit for paranoid delusions. Patient was talking about her neighbors performing witchcraft on her. She was also talking about radiation in her body and feeling that she was poisoned. MEDICATIONS: - Prolixin decanoate 25 mg intramuscular (IM) every 4 weeks - Abilify 5 mg by mouth daily - Cogentin 1 mg by mouth twice a day - trazodone as needed for insomnia SUBJECTIVE: "I don't want anybody to talk to Bari." OBJECTIVE: Patient is somewhat better today since she is willing to give some answers, but she is paranoid, has fluctuations throughout the day, periods of time that she becomes more delusional and in need of frequent redirection, with other times that she is pleasant and interacting better. MENTAL STATUS EXAMINATION: Patient is dressed in [facility]. Patient is partially cooperative, has poor eye contact. Her speech is pressured. Mood is anxious, at times irritable. Affect is expansive. Patient continues with paranoid delusions, at times appears to be reacting to internal stimuli. Memory, attention, and concentration are impaired. Insight and judgment is poor. ASSESSMENT: 1. Schizophrenia. PLAN: 1. Continue Prolixin decanoate 25 mg IM every 4 weeks. 2. Continue Abilify 5 mg by mouth every morning. 3. Continue Cogentin 1 mg by mouth twice a day. 4. Continue medication management, individual and group therapy.
[2017-07-18 18:00] VITALS: BP 123/74
[2017-07-18] MEDS ORDERED: HALOPERIDOL 5 MG/ML VIAL (J1630) IM STA (20:08)
[2017-07-18] MEDS: ALBUTEROL 90 MCG/ACT 8GM HFA INHALER INH PRN (23:31)
[2017-07-19 06:51] VITALS: BP 133/86
[2017-07-19] MEDS: MOM 30ML SUSPENSION UDC PO PRN (07:13)
[2017-07-19] MEDS: FUROSEMIDE 40 MG TAB PO SCH (09:00)
[2017-07-19] MEDS: PANTOPRAZOLE 40MG TAB (PROTONIX) PO SCH (09:00)
[2017-07-19] MEDS: VITAMIN D 1,000 INTERNATIONAL UNITS TABLET PO SCH (09:27)
[2017-07-19] MEDS: BENZTROPINE 1 MG TAB PO SCH ×2 (09:27→21:00)
[2017-07-19] MEDS: ASPIRIN 325 MG TAB PO SCH (09:27)
--- NOTE | 2017-07-19 16:42 | IPN ---
DATE: 07/19/2017 A 66-year-old female with a history of schizophrenia, admitted to our unit with paranoid delusions. Patient was talking about neighbors performing witchcraft on her. She was also talking about radiation in her body and feeling that she was poisoned. MEDICATIONS: - Prolixin Decanoate 25 mg intramuscular (IM) every 4 weeks - Abilify 5 mg by mouth daily - Cogentin 1 mg by mouth twice a day - trazodone as needed for insomnia SUBJECTIVE: "I want to go home." OBJECTIVE: Patient was doing better a couple of days ago. She is having more fluctuations of the paranoid and agitation lately. Appears to be sensitive to some of the other patients in the unit. Patient needs as-needed medications this couple of days to improve her agitation and paranoid delusions. MENTAL STATUS EXAMINATION: Patient dressed in [facility]. Patient is partially cooperative. Has poor eye contact. The speech is pressured. Mood is anxious and at times irritable. Affect is expansive. Continues with paranoid delusions. Memory, attention, and concentration are impaired. Insight and judgment are poor. ASSESSMENT: Schizophrenia. PLAN: 1. Continue Prolixin Decanoate 25 mg IM every 4 weeks 2. Continue Abilify 5 mg by mouth every morning. 3. Continue Cogentin 1 mg by mouth twice a day. 4. Continue medication management, individual and group therapy.
[2017-07-19 18:00] VITALS: BP 126/80
[2017-07-19] MEDS: OLANZapine ORAL DISINTEGRATING TAB 5MG PO PRN (18:00)
[2017-07-20 06:48] VITALS: BP 139/81
[2017-07-20] MEDS: PANTOPRAZOLE 40MG TAB (PROTONIX) PO SCH (08:46)
[2017-07-20] MEDS: FUROSEMIDE 40 MG TAB PO SCH (08:46)
[2017-07-20] MEDS: VITAMIN D 1,000 INTERNATIONAL UNITS TABLET PO SCH (08:48)
[2017-07-20] MEDS: ASPIRIN 325 MG TAB PO SCH (08:48)
[2017-07-20] MEDS: BENZTROPINE 1 MG TAB PO SCH ×2 (08:48→20:25)
[2017-07-20 18:00] VITALS: BP 132/80
[2017-07-21] MEDS: ALBUTEROL 90 MCG/ACT 8GM HFA INHALER INH PRN (00:59)
[2017-07-21] MEDS: IBUPROFEN 400 MG TAB PO PRN (05:22)
[2017-07-21 07:24] VITALS: BP 126/83
[2017-07-21] MEDS: FUROSEMIDE 40 MG TAB PO SCH (08:52)
[2017-07-21] MEDS: VITAMIN D 1,000 INTERNATIONAL UNITS TABLET PO SCH (08:52)
[2017-07-21] MEDS: PANTOPRAZOLE 40MG TAB (PROTONIX) PO SCH (08:53)
[2017-07-21] MEDS: ASPIRIN 325 MG TAB PO SCH (08:54)
[2017-07-21] MEDS: BENZTROPINE 1 MG TAB PO SCH ×2 (08:54→20:37)
[2017-07-21 18:50] VITALS: BP 117/85
[2017-07-22] MEDS ORDERED: OLANZapine ORAL DISINTEGRATING TAB 5MG PO ONE (01:00)
[2017-07-22] MEDS: ACETAMINOPHEN TAB 650MG DOSE (2X325MG) PO PRN (03:42)
[2017-07-22 07:10] VITALS: BP 144/69
[2017-07-22] MEDS: FUROSEMIDE 40 MG TAB PO SCH (09:00)
[2017-07-22] MEDS: BENZTROPINE 1 MG TAB PO SCH ×2 (09:00→21:00)
[2017-07-22] MEDS: ASPIRIN 325 MG TAB PO SCH (09:00)
[2017-07-22] MEDS: VITAMIN D 1,000 INTERNATIONAL UNITS TABLET PO SCH (09:00)
[2017-07-22] MEDS: PANTOPRAZOLE 40MG TAB (PROTONIX) PO SCH (09:00)
[2017-07-22 18:00] VITALS: BP 123/65
--- NOTE | 2017-07-23 06:04 | MHIPN ---
DATE: 07/22/2017 HISTORY: A 66-year-old female with history of schizophrenia admitted to our unit with paranoid delusion. The patient was talking about neighbors performing witchcraft on her. She was also talking about radiation in her body and feeling she was poisoned. MEDICATIONS: - Prolixin decanoate 25 mg intramuscular (IM) every four weeks - Abilify 5 mg by mouth daily - Cogentin 1 mg by mouth twice a day SUBJECTIVE: "When am I going to be able to go home?" OBJECTIVE: The patient is better today. The patient continues paranoid but less agitated, less irritable, less impulsive, and is more cooperative. The patient is denying side effect from medication, but is unwilling to take the Abilify by mouth. MENTAL STATUS EXAMINATION: The patient is dressed in [facility]. The patient is cooperative, has poor eye contact. Speech is pressured. Mood is anxious. Affect is blunted. The patient continues paranoid but improving. Memory, attention and concentration are impaired. Insight and judgment are poor. ASSESSMENT: Schizophrenia. PLAN: 1. Continue Prolixin decanoate 25 mg IM every four weeks. 2. Continue offering Abilify 5 mg by mouth every morning. 3. Continue Cogentin 1 mg by mouth twice a day. 4. Continue medication management, individual and group therapy.
[2017-07-23 07:09] VITALS: BP 137/95
[2017-07-23] MEDS: VITAMIN D 1,000 INTERNATIONAL UNITS TABLET PO SCH (09:00)
[2017-07-23] MEDS: ASPIRIN 325 MG TAB PO SCH (09:00)
[2017-07-23] MEDS: PANTOPRAZOLE 40MG TAB (PROTONIX) PO SCH (09:00)
[2017-07-23] MEDS: FUROSEMIDE 40 MG TAB PO SCH (09:00)
[2017-07-23] MEDS: BENZTROPINE 1 MG TAB PO SCH ×2 (09:00→21:00)
[2017-07-23] MEDS ORDERED: OLANZapine INTRAMUSCULAR 10 MG VIAL (S0166) IM ONE (15:30)
[2017-07-23 16:27] LABS: MEAN CORPUSCULAR HEMOGLOBIN 29.5 pg (27.0-33.0); PLATELET COUNT, AUTOMATED 281 10^3/uL (150-450); RED CELL DISTRIBUTION WIDTH 13.4 % (11.5-14.5); WHITE BLOOD COUNT 9.6 10^3/uL (4.0-10.0)
[2017-07-23 16:51] LABS: ALBUMIN 3.6 GM/DL (3.2-5.2); ALBUMIN/GLOBULIN RATIO 0.92 (1.00-1.93); BILIRUBIN,TOTAL 0.2 MG/DL (0.2-1.0); CALCIUM LEVEL 9.7 MG/DL (8.8-10.2); CREATININE FOR GFR 1.07 MG/DL (0.55-1.02); GLOMERULAR FILTRATION RATE 54.6 (>45); POTASSIUM SERUM 4.2 MEQ/L (3.5-5.1); TOTAL PROTEIN 7.5 GM/DL (6.4-8.2)
--- NOTE | 2017-07-23 17:31 | MHIPN ---
DATE: 07/23/2017 66-year-old female with history of schizophrenia admitted to our unit for paranoid delusions. Patient was talking about neighbors performing witchcraft on her, she was talking about radiation in her body and feeling she was poisoned. MEDICATIONS: - Prolixin decanoate 25 mg intramuscular (IM) every 4 weeks - Abilify 5 mg by mouth daily - Cogentin 1 mg by mouth twice a day SUBJECTIVE: "I don't want to talk." OBJECTIVE: Patient is more paranoid today. Patient says that she is upset because of "people." Patient does not want to talk. Patient is easily irritable and does not want to be approached this morning. Patient did not take by mouth medication today. MENTAL STATUS EXAMINATION: Patient is dressed in [facility]. Patient is uncooperative, has poor eye contact. Speech is selectively mute. Mood is anxious, irritable. Affect is blunted. Patient continues paranoid. Memory, attention, and concentration could not be tested. Insight and judgment are poor. ASSESSMENT: 1. Schizophrenia. PLAN: 1. Continue Prolixin decanoate 25 mg IM every 4 weeks. 2. Continue offering Abilify and all by mouth medications for medical problems. 3. Continue Cogentin 1 mg by mouth twice a day. 4. Zyprexa 5 mg IM times one. 5. Continue medication management, individual and group therapy as tolerated by patient.
[2017-07-23 18:20] VITALS: BP 121/77
[2017-07-23] MEDS: OLANZapine ORAL DISINTEGRATING TAB 5MG PO PRN (18:53)
[2017-07-24 06:27] VITALS: BP 143/86
[2017-07-24] MEDS: VITAMIN D 1,000 INTERNATIONAL UNITS TABLET PO SCH (09:00)
[2017-07-24] MEDS: PANTOPRAZOLE 40MG TAB (PROTONIX) PO SCH (09:00)
[2017-07-24] MEDS: ASPIRIN 325 MG TAB PO SCH (09:00)
[2017-07-24] MEDS ORDERED: fluPHENAZine DECAN 25MG/ML 5ML VIAL (J2680) IM SCH (09:00)
[2017-07-24] MEDS: FUROSEMIDE 40 MG TAB PO SCH (09:00)
[2017-07-24] MEDS: BENZTROPINE 1 MG TAB PO SCH ×2 (09:47→21:51)
--- NOTE | 2017-07-24 11:30 | IPNPDOC ---
Date Seen The patient was seen on 07/24/17. Progress Note HPI: 66yoF admitted to [facility] for Schizophrenia. Pt with no acute medical complaints today. Requested to re evaluate the pt in regards to SCr 1.07 as per labs 07/23/17. Pt is eating and drinking. Denies any fevers, chills, weakness, fatigue, HERNANDEZ, CP, SOB, cough, palpitations, abdominal pain, N/V/D or changes in bowel or bladder habits. PAST MEDICAL HISTORY: 1. Schizophrenia. 2. Bipolar. 3. Depression. 4. Hyperlipidemia. 5. History of migraine headaches. 6. Chronic obstructive pulmonary disease (COPD). 7. Tobacco use. 8. Substance abuse. 9. Hypertension. 10. GERD 11. Vitamin D Def PAST SURGICAL HISTORY: 1. Exploratory laparoscopy. 2. Appendectomy. 3. Hernia repair. PE: GEN: 66yoF, appears stated age. Well-nourished, well developed. No acute distress. Alert. HEENT: Normocephalic, atraumatic. Pupils are equal, round, and reactive to light. Extraocular movements are intact. No nystagmus appreciated. Sclera are nonicteric. Conjunctiva without injection. No facial asymmetry. Moist mucous membranes.Pharynx pink and moist. CHEST: Regular rate and rhythm, +S1, +S2 LUNGS: Clear to auscultation bilaterally. No wheezes, rales, or rhonchi. Breathing appears symmetric and easy. ABD: Round, soft, non-tender, non-distended. +Bowel sounds throughout. EXT: Pulses 2+ bilaterally dorsalis pedis and radial. No lower extremity edema appreciated. SKIN: [place], dry, warm. No rashes. NEURO: Alert and oriented x 3. Cranial nerves III-XII are intact. No focal deficits appreciated. EK12/06/16 SINUS RHYTHM SIMILAR 08/08/14 A&P: 66yoF admitted to [facility] for Schizophrenia 1. Psych. Plan per Psychiatry. EKG on file. 2. HTN. Pt has declined Lasix po x 7 days. No edema, no signs of fluid overload at this time. Cont ASA 325 mg po daily. Request I/O, Daily weight. SBP noted to be 121-143. Monitor. 3. SCr 1.07. Baseline appears to be 0.9-1.2 per past history. Avoid NSAIDS, Ibuprofen d/cd. Recheck BMP today. Monitor. 4. Follow up with PCP on discharge. 5. GERD. Continue protonix 40 mg po daily. 6. Vitamin D Deficiency. Continue po supplement. 7. H/O migraine HERNANDEZ. Continue Tylenol 650mg po Q6 hr as needed. VS, I&O, 24H, Fishbone Vital Signs/I&O Vital Signs Date Time Temp Pulse Resp B/P (MAP) Pulse Ox O2 Delivery O2 Flow Rate FiO2 07/24/17 06:27 97.9 99 20 143/86 (105) 07/22/17 07:10 Room Air Laboratory Data 24H LABS Laboratory Tests 2 07/23/17 15:53: Nucleated Red Blood Cells % (auto) 0.0, Anion Gap 6L, Glomerular Filtration Rate 54.6, Blood Urea Nitrogen 24H, Creatinine 1.07H, Sodium Level 140, Potassium Level 4.2, Chloride Level 104, Carbon Dioxide Level 30, Calcium Level 9.7, Aspartate Amino Transf (AST/SGOT) 14, Alanine Aminotransferase (ALT/SGPT) 20, Alkaline Phosphatase 85, Total Bilirubin 0.2, Total Protein 7.5, Albumin 3.6 , Albumin/Globulin Ratio 0.92L 07/23/17 22:00: Urine Appearance CLEAR, Urine Color COLORLESS, Urine pH 6.0, Urine Specific Ida 1.002, Urine Protein NEGATIVE, Urine Glucose (UA) NEGATIVE, Urine Ketones NEGATIVE, Urine Urobilinogen 0.2, Urine Bilirubin NEGATIVE, Urine Leukocyte Esterase NEGATIVE, Urine Blood NEGATIVE, Urine Nitrite NEGATIVE, Urine WBC (Auto) 0, Urine RBC (Auto) 0, Urine Hyaline Casts (Auto) 0, Urine Bacteria (Auto) 1+H, Urine Squamous Epithelial Cells 1, Urine Sperm (Auto) 07/24/17 11:05: CBC/BMP Laboratory Tests 07/23/17 15:53 Red Blood Count 4.65, Mean Corpuscular Volume 92.0, Mean Corpuscular Hemoglobin 29.5, Mean Corpuscular Hemoglobin Concent 32.0, Red Cell Distribution Width 13.4 , Calcium Level 9.7, Aspartate Amino Transf (AST/SGOT) 14, Alanine Aminotransferase (ALT/SGPT) 20, Alkaline Phosphatase 85, Total Bilirubin 0.2, Total Protein 7.5, Albumin 3.6 Regina Nathan Jul 24, 2017 11:30
[2017-07-24 11:42] LABS: ANION GAP 4 MEQ/L (8-16); BLOOD UREA NITROGEN 16 MG/DL (7-18); CALCIUM LEVEL 9.1 MG/DL (8.8-10.2); CARBON DIOXIDE LEVEL 28 MEQ/L (21-32); CHLORIDE LEVEL 107 MEQ/L (98-107); CREATININE FOR GFR 0.75 MG/DL (0.55-1.02); GLOMERULAR FILTRATION RATE > 60.0 (>45); GLUCOSE, FASTING 122 MG/DL (80-110); POTASSIUM SERUM 4.8 MEQ/L (3.5-5.1); SODIUM LEVEL 139 MEQ/L (136-145)
[2017-07-24 18:00] VITALS: BP 126/81
--- NOTE | 2017-07-25 06:27 | IPN ---
DATE: 07/24/2017 HISTORY: A 66-year-old female with history of schizophrenia admitted to our unit for paranoid delusions and stabilization. The patient was talking about the neighbors performing witchcraft on her. She was talking about radiation in her body and feeling she was poisoned. MEDICATIONS: - Prolixin decanoate 25 mg intramuscular (IM) every four weeks - Abilify 5 mg by mouth daily - Cogentin 1 mg by mouth twice a day SUBJECTIVE: "I don't want poison in the food." OBJECTIVE: The patient continues having fluctuation of her level of paranoia and mental status, at times becomes irritable and impulsive. The patient believes the food has been poisoned, has been picking on the type of medication she takes by mouth, although she was requesting to have the Cogentin this morning. MENTAL STATUS EXAMINATION: Patient dressed in [facility]. Patient is partially cooperative. Has poor eye contact. Speech is poor. Mood is anxious, irritable. Affect is blunted. The patient continues with paranoid delusions. Memory, attention and concentration could not be tested. Insight and judgment are very poor. ASSESSMENT: Schizophrenia. PLAN: 1. Prolixin decanoate 25 mg IM every four weeks. 2. Abilify 5 mg by mouth daily. 3. Cogentin 1 mg by mouth twice a day. 4. Medication management, individual and group therapy.
[2017-07-25] MEDS ORDERED: **PENDING PPD ENTRY XX SCH (09:00)
[2017-07-25] MEDS: BENZTROPINE 1 MG TAB PO SCH ×2 (09:00→21:00)
[2017-07-25] MEDS: VITAMIN D 1,000 INTERNATIONAL UNITS TABLET PO SCH (09:00)
[2017-07-25] MEDS: ASPIRIN 325 MG TAB PO SCH (09:00)
[2017-07-25] MEDS: FUROSEMIDE 40 MG TAB PO SCH (09:00)
[2017-07-25] MEDS: PANTOPRAZOLE 40MG TAB (PROTONIX) PO SCH (09:00)
[2017-07-25] MEDS ORDERED: TUBERCULIN PPD 5 UNITS/0.1 ML ID ONE ×2 (10:00→11:00)
[2017-07-25 18:00] VITALS: BP 122/84
--- NOTE | 2017-07-26 03:24 | MHIPN ---
DATE OF SERVICE: 07/25/2017 HISTORY: 66-year-old female with history of schizophrenia admitted to our unit for paranoid delusions and stabilization. Patient was talking about neighbors performing witchcraft on her. She was talking about radiation in her body and feeling she was poisoned. MEDICATIONS: - Prolixin decanoate 25 mg intramuscularly (IM) every 4 weeks - Abilify 5 mg by mouth every morning - Cogentin 1 mg by mouth twice a day SUBJECTIVE: "I'm scared." OBJECTIVE: Patient continues feeling paranoid. She has been refusing to take some medications. Believes the food has been poisoned. Needs frequent redirection. MENTAL STATUS EXAMINATION: Patient is dressed in [facility]. Patient is partially cooperative, has very poor eye contact. Speech is poor. Mood is anxious, irritable. Affect is blunted. Patient continues with paranoid delusions. Memory, attention and concentration could not be tested. Insight and judgment are very poor. ASSESSMENT: Schizophrenia. PLAN: 1. Continue Prolixin decanoate 25 mg intramuscularly (IM) every 4 weeks. 2. Abilify 5 mg by mouth every morning. 3. Cogentin 1 mg by mouth twice a day. 4. Medication management, individual and group therapy.
[2017-07-26 06:25] VITALS: BP 115/75
[2017-07-26] MEDS: ASPIRIN 325 MG TAB PO SCH (09:00)
[2017-07-26] MEDS: FUROSEMIDE 40 MG TAB PO SCH (09:00)
[2017-07-26] MEDS: VITAMIN D 1,000 INTERNATIONAL UNITS TABLET PO SCH (09:00)
[2017-07-26] MEDS: BENZTROPINE 1 MG TAB PO SCH ×2 (09:00→22:26)
[2017-07-26] MEDS: PANTOPRAZOLE 40MG TAB (PROTONIX) PO SCH (09:00)
[2017-07-26 09:55] VITALS: BP 115/75
--- NOTE | 2017-07-27 03:03 | MHIPN ---
DATE OF SERVICE: 07/26/2017 HISTORY: 66-year-old female with history of schizophrenia admitted to our unit for paranoid delusions and stabilization. Patient was talking about neighbors performing witchcraft on her. She was talking about radiation in her body and feeling she was poisoned. MEDICATIONS: - Prolixin decanoate 25 mg intramuscularly (IM) every 4 weeks - Abilify 5 mg by mouth every morning - Cogentin 1 mg by mouth twice a day SUBJECTIVE: "I don't want to ." OBJECTIVE: Patient continues paranoid, afraid that somebody is poisoning her, is refusing to take some of the oral medication. Insight and judgment is very poor. MENTAL STATUS EXAMINATION: Patient is dressed in [facility]. Patient is uncooperative today, poor eye contact, selectively mute. Affect is blunted. Is paranoid, delusional, guarded, unable to test memory, attention and concentration. Insight and judgment is very poor. ASSESSMENT: Schizophrenia. PLAN: 1. Continue Prolixin decanoate 25 mg intramuscularly (IM) every 4 weeks. 2. Abilify 5 mg by mouth every morning. 3. Cogentin 1 mg by mouth twice a day. 4. Continue medication management, individual and group therapy.
[2017-07-27 06:39] VITALS: BP 105/71
[2017-07-27] MEDS: TETRAHYDROZOLINE OPHTH 0.05% 15 ML BTL OU PRN ×2 (07:24→17:43)
[2017-07-27] MEDS: BENZTROPINE 1 MG TAB PO SCH ×2 (07:52→21:00)
[2017-07-27] MEDS: PANTOPRAZOLE 40MG TAB (PROTONIX) PO SCH (07:52)
[2017-07-27] MEDS: FUROSEMIDE 40 MG TAB PO SCH (07:53)
[2017-07-27] MEDS: ASPIRIN 325 MG TAB PO SCH (07:53)
[2017-07-27] MEDS: VITAMIN D 1,000 INTERNATIONAL UNITS TABLET PO SCH (07:53)
[2017-07-27] MEDS: fluPHENAZine DECAN 25MG/ML 5ML VIAL (J2680) IM SCH (09:35)
[2017-07-27] MEDS ORDERED: PPD DOCUMENTATION ENTRY MISC XX SCH (10:00)
[2017-07-27] MEDS ORDERED: PPD DOCUMENTATION ENTRY MISC XX ONE (11:00)
[2017-07-27] MEDS: OLANZapine ORAL DISINTEGRATING TAB 5MG PO PRN (16:43)
[2017-07-27 18:00] VITALS: BP 116/50
[2017-07-28] MEDS: QUEtiapine FUMARATE 50 MG TAB PO PRN (00:14)
[2017-07-28] MEDS: ACETAMINOPHEN TAB 650MG DOSE (2X325MG) PO PRN (00:15)
[2017-07-28] MEDS: ALBUTEROL 90 MCG/ACT 8GM HFA INHALER INH PRN (00:38)
[2017-07-28] MEDS: TETRAHYDROZOLINE OPHTH 0.05% 15 ML BTL OU PRN (01:45)
[2017-07-28 06:00] VITALS: BP 124/88
[2017-07-28] MEDS: FUROSEMIDE 40 MG TAB PO SCH (08:59)
[2017-07-28] MEDS: VITAMIN D 1,000 INTERNATIONAL UNITS TABLET PO SCH (08:59)
[2017-07-28] MEDS: ASPIRIN 325 MG TAB PO SCH (08:59)
[2017-07-28] MEDS: BENZTROPINE 1 MG TAB PO SCH ×2 (08:59→20:16)
[2017-07-28] MEDS: PANTOPRAZOLE 40MG TAB (PROTONIX) PO SCH (08:59)
[2017-07-28 18:00] VITALS: BP 151/95
[2017-07-29 06:32] VITALS: BP 106/63
[2017-07-29] MEDS: PANTOPRAZOLE 40MG TAB (PROTONIX) PO SCH ×2 (09:00→11:49)
[2017-07-29] MEDS: VITAMIN D 1,000 INTERNATIONAL UNITS TABLET PO SCH ×2 (09:00→11:49)
[2017-07-29] MEDS: FUROSEMIDE 40 MG TAB PO SCH ×2 (09:00→11:49)
[2017-07-29] MEDS: ASPIRIN 325 MG TAB PO SCH ×2 (09:00→11:49)
[2017-07-29] MEDS: BENZTROPINE 1 MG TAB PO SCH ×3 (09:00→21:04)
[2017-07-29] MEDS: TETRAHYDROZOLINE OPHTH 0.05% 15 ML BTL OU PRN (14:57)
--- NOTE | 2017-07-29 16:37 | MHIPN ---
DATE OF SERVICE: 07/29/2017 HISTORY: 66-year-old female with history of schizophrenia admitted to our unit for paranoid delusions and stabilization. Patient was talking about neighbors performing witchcraft on her. She was talking about radiation in her body and feeling she was poisoned. MEDICATIONS: - Prolixin decanoate 25 mg intramuscularly every 2 weeks - Abilify 5 mg by mouth every morning - Cogentin 1 mg by mouth twice a day SUBJECTIVE: "I'm not safe here." OBJECTIVE: No major changes. Patient continues paranoid, afraid that somebody will hurt her or poison her. She has fluctuations of this paranoia and at times refuses to take the medication. Patient was asking to be discharged home today, and was mentioning that she was afraid. Insight and judgment is very poor. MENTAL STATUS EXAMINATION: Patient dressed in [facility]. Patient is non cooperative. Has poor eye contact. Affect is blunted. Patient continues paranoid, delusional. Does not appear to be reacting internal stimuli. Could not test attention, concentration or memory. Insight and judgment is very poor. ASSESSMENT: Schizophrenia. PLAN: 1. Continue Prolixin decanoate 25 mg IM every 2 weeks. 2. Abilify 5 mg by mouth every morning. 3. Cogentin 1 mg by mouth twice a day. 4. Continue medication management, individual and group therapy as tolerated by patient.
[2017-07-29] MEDS ORDERED: IBUPROFEN 600 MG TAB PO STA (17:45)
[2017-07-29 18:00] VITALS: BP 136/78
[2017-07-30] MEDS: TETRAHYDROZOLINE OPHTH 0.05% 15 ML BTL OU PRN ×2 (00:29→11:42)
[2017-07-30 06:23] VITALS: BP 147/80
[2017-07-30] MEDS: ASPIRIN 325 MG TAB PO SCH (08:06)
[2017-07-30] MEDS: BENZTROPINE 1 MG TAB PO SCH ×2 (08:06→20:20)
[2017-07-30] MEDS: PANTOPRAZOLE 40MG TAB (PROTONIX) PO SCH (09:00)
[2017-07-30] MEDS: FUROSEMIDE 40 MG TAB PO SCH (09:29)
[2017-07-30] MEDS: VITAMIN D 1,000 INTERNATIONAL UNITS TABLET PO SCH (09:29)
--- NOTE | 2017-07-30 16:06 | MHIPN ---
DATE: 07/30/2017 A 66-year-old female with a history of schizophrenia, admitted to our unit for paranoid delusions and stabilization. The patient was talking about neighbors performing witchcraft on her. She was talking about radiation in her body and feeling she was poisoned. MEDICATIONS: - Prolixin Decanoate 25 mg IM every 2 weeks - Abilify 5 mg by mouth every morning - Cogentin 1 mg by mouth twice a day SUBJECTIVE: "I want to go home." OBJECTIVE: The patient is somewhat better today. The patient is willing to interact minimally and answer some questions. The patient continues paranoid. She is talking about feeling in danger here in the unit and is asking to be discharged home. The patient was compliant with medication today. MENTAL STATUS EXAMINATION: The patient is dressed in [facility]. The patient is partially cooperative, has fair eye contact. Affect is blunted. The patient continues paranoid delusional, does not appear to react to internal stimuli. Could not test attention and concentration and memory. Insight and judgment is very poor. ASSESSMENT: Schizophrenia. PLAN: 1. Continue Prolixin decanoate 25 mg IM every 2 weeks. 2. Abilify 5 mg by mouth every morning 3. Cogentin 1 mg by mouth twice a day. 4. Continue medication management, individual and group therapy.
[2017-07-30 18:25] VITALS: BP 128/73
[2017-07-30] MEDS ORDERED: LORazepam 1 MG TAB PO ONE (20:30)
[2017-07-30] MEDS: IBUPROFEN 600 MG TAB PO PRN (22:58)
[2017-07-31] MEDS ORDERED: HALOPERIDOL 5 MG/ML VIAL (J1630) IM STA (06:10)
[2017-07-31] MEDS ORDERED: LORazepam 2 MG/ML VIAL (J2060) IM STA (06:10)
[2017-07-31] MEDS: BENZTROPINE 1 MG TAB PO SCH (09:00)
[2017-07-31] MEDS: VITAMIN D 1,000 INTERNATIONAL UNITS TABLET PO SCH (09:00)
[2017-07-31] MEDS: FUROSEMIDE 40 MG TAB PO SCH (09:00)
[2017-07-31] MEDS: PANTOPRAZOLE 40MG TAB (PROTONIX) PO SCH (09:00)
[2017-07-31] MEDS: ASPIRIN 325 MG TAB PO SCH (09:00)
--- NOTE | 2017-07-31 15:43 | MHIPN ---
DATE: 07/31/2017 HISTORY: 66-year-old female with history of schizophrenia admitted to our unit for paranoid delusions and stabilization. Patient was talking about neighbors performing witchcraft on her. She was talking about radiation in her body and feeling like she was poisoned. MEDICATIONS: - Prolixin decanoate 25 mg intramuscular (IM) every 2 weeks - Abilify 5 mg by mouth every morning - Cogentin 1 mg by mouth twice a day SUBJECTIVE: "I need to go home, I'm not safe." OBJECTIVE: Patient is improving, but very slowly. Patient is allowing minimal interaction, but continues to be paranoid, feels unsafe, and thinks that somebody will hurt her in the unit, that is why she is asking to be discharged. Patient has been compliant with psychotropic medication, although she did not want to take some of the medical tablets. MENTAL STATUS EXAMINATION: Patient is dressed in [facility]. Patient is partially cooperative, has fair eye contact. Affect is blunted. Patient continues paranoid, delusional, with very little insight and judgment call. ASSESSMENT: Schizophrenia. PLAN: 1. Continue Prolixin decanoate 25 mg IM every 2 weeks. 2. Abilify 5 mg by mouth every morning. 3. Cogentin 1 mg by mouth twice a day. 4. Continue medication management, individual and group therapy.
[2017-07-31] MEDS: OLANZapine ORAL DISINTEGRATING TAB 5MG PO PRN (17:55)
[2017-07-31 18:00] VITALS: BP 138/75
[2017-08-01] MEDS: BENZTROPINE 1 MG TAB PO SCH ×3 (00:21→21:00)
[2017-08-01] MEDS: ALBUTEROL 90 MCG/ACT 8GM HFA INHALER INH PRN (01:31)
[2017-08-01] MEDS: PANTOPRAZOLE 40MG TAB (PROTONIX) PO SCH (09:00)
[2017-08-01] MEDS: ASPIRIN 325 MG TAB PO SCH (09:00)
[2017-08-01] MEDS: VITAMIN D 1,000 INTERNATIONAL UNITS TABLET PO SCH (09:00)
[2017-08-01] MEDS: FUROSEMIDE 40 MG TAB PO SCH (09:00)
--- NOTE | 2017-08-01 15:03 | MHIPN ---
DATE OF SERVICE: 08/01/2017 HISTORY: 66-year-old female with history of schizophrenia admitted to our unit for paranoid delusions and stabilization. Patient was talking about neighbors performing witchcraft on her. She was talking about radiation in her body and feeling like she was poisoned. MEDICATIONS: - Prolixin decanoate 25 mg IM every two weeks - Abilify 5 mg by mouth every morning - Cogentin 1 mg by mouth twice a day SUBJECTIVE: "They are coming to get me." OBJECTIVE: Patient continues to paranoid, delusional. Allows minimal interaction but is somewhat dismissive. She received visitation of her case management manager who usually she get along very well. In his opinion, she is far from baseline. Patient is compliant with some of the medications. She is on Prolixin decanoate which she believes is the only medication that will help her. She is now taking the Cogentin as prescribed. MENTAL STATUS EXAMINATION: Patient is dressed in [facility]. Patient is partially cooperative, has poor eye contact. Affect is blunted. She is not ready to engage in one to one, is somewhat dismissive. Continues paranoid delusional with no insight and poor judgment. ASSESSMENT: 1. Schizophrenia. PLAN: 1. Continue Prolixin decanoate 25 mg IM every two weeks. 2. Abilify 5 mg by mouth every morning 3. Cogentin 1 mg by mouth twice a day. 4. Continue medication management, individual and group therapy.
--- NOTE | 2017-08-01 16:16 | REP ---
Clinical: Epigastric and abdominal pain. Technique: Upright view of the chest with supine and upright views of the abdomen and pelvis. Findings: Frontal upright view of the chest demonstrates no acute cardiopulmonary process or free air below the diaphragm to suspect pneumoperitoneum. Supine and upright views of the abdomen and pelvis demonstrate nonspecific bowel gas pattern without obstruction or perforation. No organomegaly. No abnormal calcifications. Skeletal structures demonstrate age-related degenerative changes. Impression: Nonspecific bowel gas pattern. Signed by Bari Koenig MD 08/01/2017 04:08 P
--- NOTE | 2017-08-01 16:18 | REP ---
Clinical: Chest pain with productive sputum. Technique: PA (from current abdominal series) and lateral. Comparison: 05/26/2013 Findings: Mediastinum and cardiac silhouette are normal. Lung daigle demonstrate mild chronic-appearing interstitial changes without acute consolidation, effusion, or pneumothorax. Skeletal structures demonstrate age-related osteopenia and degenerative change. Impression: No acute cardiopulmonary process or focal consolidation. Signed by Bari Koenig MD 08/01/2017 04:10 P
[2017-08-01 18:00] VITALS: BP 144/82
[2017-08-02] MEDS: TETRAHYDROZOLINE OPHTH 0.05% 15 ML BTL OU PRN (00:45)
[2017-08-02] MEDS: BENZTROPINE 1 MG TAB PO SCH ×3 (09:00→20:43)
[2017-08-02] MEDS: FUROSEMIDE 40 MG TAB PO SCH (09:00)
[2017-08-02] MEDS: ASPIRIN 325 MG TAB PO SCH (09:00)
[2017-08-02] MEDS: VITAMIN D 1,000 INTERNATIONAL UNITS TABLET PO SCH (09:00)
[2017-08-02] MEDS: PANTOPRAZOLE 40MG TAB (PROTONIX) PO SCH (09:00)
[2017-08-02] MEDS: OLANZapine ORAL DISINTEGRATING TAB 5MG PO PRN (10:27)
[2017-08-02] MEDS: IBUPROFEN 600 MG TAB PO PRN (14:18)
--- NOTE | 2017-08-02 16:07 | MHIPN ---
DATE: 08/02/2017 HISTORY: A 66-year-old female with history of schizophrenia, admitted for paranoid delusions. Patient was talking about her neighbors performing witchcraft on her. She was talking about radiation in her body and feeling like she was poisoned. MEDICATIONS: - Prolixin Decanoate 25 mg intramuscular (IM) every 2 weeks - Abilify 5 mg by mouth every morning - Cogentin 1 mg by mouth twice a day SUBJECTIVE: "They are coming to get me." OBJECTIVE: Patient continues paranoid, delusional today. She was not willing to talk to me. "Get out of here." I could not perform mental status examination. There is no evidence of side effects from the medication. MENTAL STATUS EXAMINATION: Patient was not cooperative today. Patient is dressed in [facility]. Poor eye contact. Affect is blunted, refusing to speak with me. Paranoid, guarded. No insight. Poor judgment. ASSESSMENT: Schizophrenia. PLAN: 1. Continue Prolixin Decanoate 25 mg IM every 2 weeks. 2. Abilify 5 mg by mouth every morning. 3. Cogentin 1 mg by mouth twice a day.
[2017-08-02 18:00] VITALS: BP 137/80
[2017-08-03] MEDS: OLANZapine ORAL DISINTEGRATING TAB 5MG PO PRN ×3 (01:45→17:58)
[2017-08-03] MEDS: ASPIRIN 325 MG TAB PO SCH ×2 (08:40→09:09)
[2017-08-03] MEDS: FUROSEMIDE 40 MG TAB PO SCH (08:40)
[2017-08-03] MEDS: PANTOPRAZOLE 40MG TAB (PROTONIX) PO SCH (08:40)
[2017-08-03] MEDS: BENZTROPINE 1 MG TAB PO SCH ×2 (08:40→09:09)
[2017-08-03] MEDS: VITAMIN D 1,000 INTERNATIONAL UNITS TABLET PO SCH (08:40)
[2017-08-03] MEDS: ALBUTEROL 90 MCG/ACT 8GM HFA INHALER INH PRN (12:13)
[2017-08-03 18:00] VITALS: BP 143/86
[2017-08-04] MEDS: BENZTROPINE 1 MG TAB PO SCH ×3 (01:12→23:34)
[2017-08-04] MEDS: PANTOPRAZOLE 40MG TAB (PROTONIX) PO SCH (08:38)
[2017-08-04] MEDS: FUROSEMIDE 40 MG TAB PO SCH (08:38)
[2017-08-04] MEDS: ASPIRIN 325 MG TAB PO SCH (08:38)
[2017-08-04] MEDS: VITAMIN D 1,000 INTERNATIONAL UNITS TABLET PO SCH (08:38)
[2017-08-05] MEDS: IBUPROFEN 600 MG TAB PO PRN (07:14)
[2017-08-05] MEDS: BENZTROPINE 1 MG TAB PO SCH ×2 (09:00→21:00)
[2017-08-05] MEDS: ASPIRIN 325 MG TAB PO SCH (09:00)
[2017-08-05] MEDS: FUROSEMIDE 40 MG TAB PO SCH (09:00)
[2017-08-05] MEDS: VITAMIN D 1,000 INTERNATIONAL UNITS TABLET PO SCH (09:00)
[2017-08-05] MEDS: PANTOPRAZOLE 40MG TAB (PROTONIX) PO SCH (09:03)
--- NOTE | 2017-08-05 17:25 | IPN ---
DATE: 08/05/2017 HISTORY: A 66-year-old female with history of schizophrenia admitted for paranoid delusions. The patient was talking about her neighbors performing witchcraft on her. She was talking about radiation in her body and feeling like she was poisoned. MEDICATIONS: - Prolixin Decanoate 25 mg intramuscular (IM) every two weeks - Abilify 5 mg by mouth every morning - Cogentin 1 mg by mouth twice a day SUBJECTIVE: "I cannot stay here." OBJECTIVE: The patient continues paranoid and delusional. She is allowing some verbal interaction but is not engaged. The patient continues to be afraid that somebody will hurt her. No side effects from the medication. MENTAL STATUS EXAMINATION: The patient is more cooperative today, although she is not willing to interact in a one-to-one. The patient has a tendency to stay by herself in her room. She is not talking to other patients. There is no evidence of auditory or visual hallucinations but continues paranoid and delusional. No insight and very poor judgment. ASSESSMENT: Schizophrenia. PLAN: 1. Continue Prolixin Decanoate 25 mg intramuscular (IM) every two weeks. 2. Abilify 5 mg by mouth every morning. 3. Cogentin 1 mg by mouth twice a day.
[2017-08-05 18:00] VITALS: BP 126/83
[2017-08-06] MEDS: BENZTROPINE 1 MG TAB PO SCH ×2 (09:00→17:06)
[2017-08-06] MEDS: VITAMIN D 1,000 INTERNATIONAL UNITS TABLET PO SCH (09:00)
[2017-08-06] MEDS: ASPIRIN 325 MG TAB PO SCH (09:00)
[2017-08-06] MEDS: FUROSEMIDE 40 MG TAB PO SCH (09:00)
[2017-08-06] MEDS: PANTOPRAZOLE 40MG TAB (PROTONIX) PO SCH (09:00)
[2017-08-06] MEDS: OLANZapine ORAL DISINTEGRATING TAB 5MG PO PRN ×2 (10:43→17:08)
[2017-08-06] MEDS: CEPACOL LOZENGE PO PRN (10:46)
--- NOTE | 2017-08-06 11:32 | REP ---
Clinical: Productive cough . Comparison: 08/01/2017 . Technique: PA and lateral. Findings: The mediastinum and cardiac silhouette are normal. The lung daigle are clear and without acute consolidation, effusion, or pneumothorax. The skeletal structures are intact and normal. Impression: 1. No acute cardiopulmonary process. Signed by Bari Koenig MD 08/06/2017 11:23 A
[2017-08-06] MEDS: IBUPROFEN 600 MG TAB PO PRN (13:37)
[2017-08-06] MEDS: IPRATROPIUM 0.5MG/ALBUTEROL 2.5MG INH SOL UD 3ML (DUONEB)(J7620) NEB PRN (14:57)
--- NOTE | 2017-08-06 16:11 | IPN ---
DATE: 08/06/2017 HISTORY: A 66-year-old female with history of schizophrenia admitted for paranoid delusions. The patient was talking about her neighbors performing witchcraft on her. She was talking about radiation in her body and feeling like she was poisoned. MEDICATIONS: - Prolixin Decanoate 25 mg intramuscular (IM) every two weeks - Abilify 5 mg by mouth every morning - Cogentin 1 mg by mouth twice a day SUBJECTIVE: "They are coming to get me." OBJECTIVE: The patient continues paranoid and delusional. 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 She does not interact with other patients. Has a tendency to stay in her room. Continues paranoid and afraid and guarded. Appears to tolerate the medication well. MENTAL STATUS EXAMINATION: The patient is partially cooperative although she becomes selectively mute frequently. Patient has tendency to stay in her room and not talking to other patients. There is no evidence of auditory or visual hallucination but continues very paranoid and guarded. Insight and judgment is poor. ASSESSMENT: Schizophrenia. PLAN: 1. Continue Prolixin Decanoate 25 mg intramuscular (IM) every two weeks. 2. Abilify 5 mg by mouth every morning. 3. Cogentin 1 mg by mouth twice a day.
[2017-08-06 18:00] VITALS: BP 99/58
[2017-08-06 18:26] LABS: MEAN CORPUSCULAR HEMOGLOBIN 29.8 pg (27.0-33.0); MEAN CORPUSCULAR HGB CONC 32.8 g/dl (32.0-36.5); MEAN CORPUSCULAR VOLUME 90.9 fl (80.0-96.0); PLATELET COUNT, AUTOMATED 243 10^3/uL (150-450); RED CELL DISTRIBUTION WIDTH 13.5 % (11.5-14.5); WHITE BLOOD COUNT 10.6 10^3/uL (4.0-10.0)
[2017-08-06 19:12] LABS: ALBUMIN 3.2 GM/DL (3.2-5.2); ALBUMIN/GLOBULIN RATIO 1.03 (1.00-1.93); ALKALINE PHOSPHATASE 92 U/L (45-117); ALT/SGPT 18 U/L (12-78); ANION GAP 9 MEQ/L (8-16); AST/SGOT 13 U/L (7-37); BILIRUBIN,TOTAL 0.2 MG/DL (0.2-1.0); BLOOD UREA NITROGEN 29 MG/DL (7-18); CALCIUM LEVEL 8.7 MG/DL (8.8-10.2); CARBON DIOXIDE LEVEL 26 MEQ/L (21-32); CHLORIDE LEVEL 106 MEQ/L (98-107); CREATININE FOR GFR 0.96 MG/DL (0.55-1.02); GLOMERULAR FILTRATION RATE > 60.0 (>45); GLUCOSE, FASTING 120 MG/DL (80-110); POTASSIUM SERUM 4.1 MEQ/L (3.5-5.1); SODIUM LEVEL 141 MEQ/L (136-145); TOTAL PROTEIN 6.3 GM/DL (6.4-8.2)
[2017-08-07] MEDS: QUEtiapine FUMARATE 50 MG TAB PO PRN (01:13)
[2017-08-07] MEDS: VITAMIN D 1,000 INTERNATIONAL UNITS TABLET PO SCH (09:00)
[2017-08-07] MEDS: FUROSEMIDE 40 MG TAB PO SCH (09:00)
[2017-08-07] MEDS: BENZTROPINE 1 MG TAB PO SCH ×2 (09:00→21:21)
[2017-08-07] MEDS: ASPIRIN 325 MG TAB PO SCH (09:00)
[2017-08-07] MEDS: PANTOPRAZOLE 40MG TAB (PROTONIX) PO SCH (09:00)
[2017-08-07] MEDS: IBUPROFEN 600 MG TAB PO PRN (09:45)
--- NOTE | 2017-08-07 16:31 | IPN ---
DATE: 08/07/2017 HISTORY: A 66-year-old female with a history of schizophrenia, admitted for paranoid delusions. Patient was talking about her neighbors performing witchcraft on her. She was talking about radiation in her body and feeling like she was poisoned. MEDICATIONS: - Prolixin Decanoate 25 mg intramuscular (IM) every 2 weeks - Abilify 5 mg by mouth every morning - Cogentin 1 mg by mouth twice a day SUBJECTIVE: "I'm very afraid." OBJECTIVE: Patient continues paranoid, delusional, guarded. No interaction with other patients. Very little interaction with staff. She is tolerating the medication well. MENTAL STATUS EXAMINATION: Patient dressed in [facility]. Patient continues paranoid, at times electively mute. Has tendency to stay in her room and not talking to other patients or staff. There is no evidence of auditory or visual hallucinations but is very guarded. Insight and judgment are poor. ASSESSMENT: Schizophrenia. PLAN: 1. Continue Prolixin Decanoate 25 mg IM every 2 weeks. 2. Cogentin 1 mg by mouth twice a day.
[2017-08-07 18:19] VITALS: BP 147/89
[2017-08-08] MEDS ORDERED: OLANZapine 10 MG TAB PO ONE (06:30)
[2017-08-08] MEDS: PANTOPRAZOLE 40MG TAB (PROTONIX) PO SCH (09:00)
[2017-08-08] MEDS: FUROSEMIDE 40 MG TAB PO SCH (09:00)
[2017-08-08] MEDS: ASPIRIN 325 MG TAB PO SCH (09:00)
[2017-08-08] MEDS: BENZTROPINE 1 MG TAB PO SCH ×2 (09:00→16:35)
[2017-08-08] MEDS: VITAMIN D 1,000 INTERNATIONAL UNITS TABLET PO SCH (09:00)
[2017-08-08] MEDS: IBUPROFEN 600 MG TAB PO PRN ×2 (15:50→22:01)
[2017-08-08 17:10] VITALS: BP 132/82
[2017-08-08 20:49] VITALS: BP 132/82
[2017-08-09] MEDS ORDERED: OLANZapine INTRAMUSCULAR 10 MG VIAL (S0166) IM ONE (01:00)
[2017-08-09] MEDS ORDERED: OLANZapine ORAL DISINTEGRATING TAB 5MG PO ONE (01:15)
[2017-08-09] MEDS: IBUPROFEN 600 MG TAB PO PRN ×3 (05:26→20:24)
[2017-08-09] MEDS ORDERED: HALOPERIDOL 5 MG/ML VIAL (J1630) IM STA (06:41)
[2017-08-09] MEDS ORDERED: LORazepam 2 MG/ML VIAL (J2060) IM STA (06:41)
[2017-08-09] MEDS: BENZTROPINE 1 MG TAB PO SCH ×2 (08:49→20:23)
[2017-08-09] MEDS: ASPIRIN 325 MG TAB PO SCH (08:50)
[2017-08-09] MEDS: FUROSEMIDE 40 MG TAB PO SCH (08:53)
[2017-08-09] MEDS: PANTOPRAZOLE 40MG TAB (PROTONIX) PO SCH (08:54)
[2017-08-09] MEDS: VITAMIN D 1,000 INTERNATIONAL UNITS TABLET PO SCH (08:54)
[2017-08-09] MEDS: HALOPERIDOL 5 MG TAB PO SCH ×2 (11:46→20:25)
[2017-08-09] MEDS ORDERED: LORazepam 1 MG TAB As Ordered ONE (16:12)
[2017-08-09] MEDS ORDERED: LORazepam 1 MG TAB PO ONE (16:15)
[2017-08-09] MEDS ORDERED: HALOPERIDOL 5 MG TAB PO ONE (16:15)
[2017-08-09 18:00] VITALS: BP 133/91
[2017-08-09] MEDS: MOM 30ML SUSPENSION UDC PO PRN (20:24)
[2017-08-09] MEDS: CEPACOL LOZENGE PO PRN (23:04)
--- NOTE | 2017-08-10 04:25 | MHIPN ---
DATE OF SERVICE: 08/09/2017 HISTORY: 66-year-old female with a history of schizophrenia, admitted with paranoid delusions talking about neighbors performing witchcraft on her, about radiation in her body and that she was poisoned. MEDICATIONS: - Prolixin decanoate 25 mg intramuscular (IM) every 2 weeks - Abilify 5 mg by mouth every morning - Cogentin 1 mg by mouth twice a day SUBJECTIVE: "I'm feeling a little better." OBJECTIVE: Patient is calmer this morning. She was agitated last night, very delusional, paranoid, yelling and screaming and had to be medicated with Zyprexa 10 mg that was partially effective and then she received Haldol 5 mg and Ativan 1 mg. MENTAL STATUS EXAMINATION: Patient dressed in [facility]. Patient is less paranoid this morning and is able to minimally discuss her problems, although she is still guarded. Patient is not reacting to internal stimuli this morning. Insight and judgment is very poor. ASSESSMENT: Schizophrenia. PLAN: 1. Continue Prolixin decanoate 25 mg IM every 2 weeks. 2. Continue Cogentin 1 mg by mouth twice a day. 3. Haldol 5 mg by mouth twice a day.
[2017-08-10 06:42] VITALS: BP 139/81
[2017-08-10] MEDS: PANTOPRAZOLE 40MG TAB (PROTONIX) PO SCH (08:50)
[2017-08-10] MEDS: HALOPERIDOL 5 MG TAB PO SCH ×2 (08:50→21:00)
[2017-08-10] MEDS: FUROSEMIDE 40 MG TAB PO SCH (08:50)
[2017-08-10] MEDS: VITAMIN D 1,000 INTERNATIONAL UNITS TABLET PO SCH (08:50)
[2017-08-10] MEDS: BENZTROPINE 1 MG TAB PO SCH ×2 (08:50→21:00)
[2017-08-10] MEDS: ASPIRIN 325 MG TAB PO SCH (08:50)
[2017-08-10] MEDS: fluPHENAZine DECAN 25MG/ML 5ML VIAL (J2680) IM SCH (09:00)
[2017-08-10] MEDS ORDERED: HALOPERIDOL 5 MG/ML VIAL (J1630) IM STA (12:45)
[2017-08-10] MEDS ORDERED: LORazepam 1 MG TAB PO ONE (12:45)
[2017-08-10] MEDS ORDERED: HALOPERIDOL 5 MG TAB PO ONE (12:45)
[2017-08-11] MEDS: ASPIRIN 325 MG TAB PO SCH ×2 (08:56→15:24)
[2017-08-11] MEDS: BENZTROPINE 1 MG TAB PO SCH ×3 (08:56→21:00)
[2017-08-11] MEDS: HALOPERIDOL 5 MG TAB PO SCH ×2 (08:57→21:00)
[2017-08-11] MEDS: VITAMIN D 1,000 INTERNATIONAL UNITS TABLET PO SCH (08:57)
[2017-08-11] MEDS: PANTOPRAZOLE 40MG TAB (PROTONIX) PO SCH (08:57)
[2017-08-11] MEDS: fluPHENAZine DECAN 25MG/ML 5ML VIAL (J2680) IM SCH ×2 (08:57→15:23)
[2017-08-11] MEDS: FUROSEMIDE 40 MG TAB PO SCH (08:57)
[2017-08-11] MEDS: OLANZapine ORAL DISINTEGRATING TAB 5MG PO PRN (15:30)
[2017-08-11 18:00] VITALS: BP 136/97
[2017-08-12] MEDS: PANTOPRAZOLE 40MG TAB (PROTONIX) PO SCH (08:56)
[2017-08-12] MEDS: IBUPROFEN 600 MG TAB PO PRN ×2 (08:57→16:39)
[2017-08-12] MEDS: BENZTROPINE 1 MG TAB PO SCH ×2 (08:57→21:03)
[2017-08-12] MEDS: VITAMIN D 1,000 INTERNATIONAL UNITS TABLET PO SCH (08:57)
[2017-08-12] MEDS: ASPIRIN 325 MG TAB PO SCH (08:57)
[2017-08-12] MEDS: HALOPERIDOL 5 MG TAB PO SCH ×2 (08:57→21:00)
[2017-08-12] MEDS: FUROSEMIDE 40 MG TAB PO SCH (08:58)
--- NOTE | 2017-08-12 15:44 | MHIPN ---
DATE: 08/12/2017 HISTORY: 66-year-old female with history of schizophrenia admitted with paranoid delusions, talking about neighbors performing witchcraft on her, about radiation in her body and that she was poisoned. MEDICATIONS: - Prolixin decanoate 25 mg intramuscular (IM) every 2 weeks - Abilify 5 mg by mouth every morning - Cogentin 1 mg by mouth twice a day SUBJECTIVE: "I'm very afraid." OBJECTIVE: Patient is paranoid this morning, very anxious, afraid that somebody will come and harm her. Patient has no side effect from the medications. MENTAL STATUS EXAMINATION: Patient is dressed in [facility]. Patient is paranoid, delusional, guarded, afraid. Insight and judgment is very good. ASSESSMENT: 1. Schizophrenia. PLAN: 1. Continue Prolixin decanoate 25 mg intramuscular (IM) every 2 weeks. 2. Cogentin 1 mg by mouth twice a day. 3. Haldol 5 mg by mouth twice a day.
[2017-08-12 18:12] VITALS: BP 130/76
[2017-08-13 06:41] VITALS: BP 107/78
[2017-08-13 08:56] LABS: MEAN CORPUSCULAR HEMOGLOBIN 29.3 pg (27.0-33.0); MEAN CORPUSCULAR HGB CONC 32.3 g/dl (32.0-36.5); MEAN CORPUSCULAR VOLUME 90.8 fl (80.0-96.0); PLATELET COUNT, AUTOMATED 273 10^3/uL (150-450); RED CELL DISTRIBUTION WIDTH 13.2 % (11.5-14.5); WHITE BLOOD COUNT 11.9 10^3/uL (4.0-10.0)
[2017-08-13] MEDS: PANTOPRAZOLE 40MG TAB (PROTONIX) PO SCH (08:56)
[2017-08-13] MEDS: FUROSEMIDE 40 MG TAB PO SCH (08:56)
[2017-08-13] MEDS: ASPIRIN 325 MG TAB PO SCH (08:56)
[2017-08-13] MEDS: HALOPERIDOL 5 MG TAB PO SCH ×2 (08:56→20:39)
[2017-08-13] MEDS: BENZTROPINE 1 MG TAB PO SCH ×2 (08:56→20:39)
[2017-08-13] MEDS: VITAMIN D 1,000 INTERNATIONAL UNITS TABLET PO SCH (08:57)
[2017-08-13 09:34] LABS: ALBUMIN 3.6 GM/DL (3.2-5.2); ALBUMIN/GLOBULIN RATIO 0.86 (1.00-1.93); ALKALINE PHOSPHATASE 100 U/L (45-117); ALT/SGPT 19 U/L (12-78); ANION GAP 10 MEQ/L (8-16); AST/SGOT 16 U/L (7-37); BILIRUBIN,TOTAL 0.5 MG/DL (0.2-1.0); BLOOD UREA NITROGEN 22 MG/DL (7-18); CALCIUM LEVEL 9.4 MG/DL (8.8-10.2); CARBON DIOXIDE LEVEL 26 MEQ/L (21-32); CHLORIDE LEVEL 102 MEQ/L (98-107); CREATININE FOR GFR 0.97 MG/DL (0.55-1.02); GLOMERULAR FILTRATION RATE > 60.0 (>45); GLUCOSE, FASTING 159 MG/DL (80-110); POTASSIUM SERUM 4.6 MEQ/L (3.5-5.1); SODIUM LEVEL 138 MEQ/L (136-145); TOTAL PROTEIN 7.8 GM/DL (6.4-8.2)
[2017-08-13] MEDS: TETRAHYDROZOLINE OPHTH 0.05% 15 ML BTL OU PRN ×2 (12:29→19:47)
--- NOTE | 2017-08-13 16:17 | MHIPN ---
DATE OF SERVICE: 08/13/2017 HISTORY: 66-year-old female with a history of schizophrenia admitted with paranoid delusions, talking about neighbors performing which craft on her, also about radiation in her body and that she was poisoned. MEDICATIONS: - Prolixin decanoate 25 mg by mouth in the a.m. every two weeks - Abilify 5 mg by mouth every morning - Cogentin 1 mg by mouth twice a day SUBJECTIVE: "They are going to hurts me." OBJECTIVE: Patient is paranoid this morning, no willing to interact in a one-to-one conversation. Patient is afraid and guarded, very anxious. Patient is tolerating well the Prolixin. She is not taking Cogentin. MENTAL STATUS EXAMINATION: The patient is dressed in [facility]. Patient continues paranoid, delusional, guarded and afraid. The patient does not want to interact in a one-to-one today. Insight and judgment is very poor. ASSESSMENT: 1. Schizophrenia. PLAN: 1. Prolixin decanoate 25 mg in the a.m. every two weeks. 2. Cogentin 1 mg by mouth twice a day. 3. Haldol 5 mg by mouth twice a day.
[2017-08-14] MEDS: IBUPROFEN 600 MG TAB PO PRN ×2 (01:12→20:02)
[2017-08-14] MEDS: FUROSEMIDE 40 MG TAB PO SCH (09:00)
[2017-08-14] MEDS: VITAMIN D 1,000 INTERNATIONAL UNITS TABLET PO SCH (09:00)
[2017-08-14] MEDS: HALOPERIDOL 5 MG TAB PO SCH ×2 (09:00→21:00)
[2017-08-14] MEDS: ASPIRIN 325 MG TAB PO SCH (09:00)
[2017-08-14] MEDS: BENZTROPINE 1 MG TAB PO SCH ×2 (09:00→21:00)
[2017-08-14] MEDS: PANTOPRAZOLE 40MG TAB (PROTONIX) PO SCH (09:00)
--- NOTE | 2017-08-14 15:40 | MHIPN ---
DATE: 08/14/2017 HISTORY: A 66-year-old female with history of schizophrenia, admitted with paranoid delusions, talking about neighbors performing witchcraft on her, also about radiation and feeling that she has been poisoned. MEDICATIONS: - Prolixin decanoate 25 mg intramuscular (IM) every two weeks - Cogentin 1 mg by mouth twice a day - Haldol 5 mg by mouth twice a day SUBJECTIVE: "I don't want to talk to you." OBJECTIVE: The patient is paranoid this morning, unwilling to engage in one-to-one interaction. The patient is delusional with very poor insight. Did not take the Haldol 5 mg by mouth twice a day this morning. MENTAL STATUS EXAMINATION: The patient is dressed in [facility]. The patient is uncooperative, unwilling to discuss her problems or interact in a one-to-one session. Speech is selectively mute. Mood is euthymic. Affect is blunted. The patient continues delusional, paranoid. Memory, attention and concentration could not be tested. Insight and judgment is very poor. ASSESSMENT: Schizophrenia. PLAN: 1. Continue Haldol 5 mg by mouth twice a day. 2. Prolixin decanoate 25 mg intramuscular (IM) every two weeks. 3. Cogentin 1 mg by mouth twice a day.
[2017-08-14 18:00] VITALS: BP 117/77
[2017-08-15] MEDS: VITAMIN D 1,000 INTERNATIONAL UNITS TABLET PO SCH (09:26)
[2017-08-15] MEDS: BENZTROPINE 1 MG TAB PO SCH ×2 (09:26→21:00)
[2017-08-15] MEDS: IBUPROFEN 600 MG TAB PO PRN ×2 (09:26→16:16)
[2017-08-15] MEDS: HALOPERIDOL 5 MG TAB PO SCH ×2 (09:26→21:00)
[2017-08-15] MEDS: PANTOPRAZOLE 40MG TAB (PROTONIX) PO SCH (09:26)
[2017-08-15] MEDS: FUROSEMIDE 40 MG TAB PO SCH (09:26)
[2017-08-15] MEDS: ASPIRIN 325 MG TAB PO SCH (09:26)
--- NOTE | 2017-08-15 16:23 | MHIPN ---
DATE: 08/15/2017 HISTORY: A 66-year-old female with a history of schizophrenia, admitted with paranoid delusions, talking about neighbors performing witchcraft on her, also talking about radiation and being poisoned. MEDICATIONS: - Prolixin decanoate 25 mg intramuscularly (IM) every 2 weeks - Cogentin 1 mg by mouth twice a day - Haldol 5 mg by mouth twice a day SUBJECTIVE: "Somebody is going to hurt me." OBJECTIVE: The patient is paranoid this morning, but is willing to engage minimally in one-to-one conversation. Sentences are very short, answering yes or no. The patient continues with very poor insight, delusional, paranoid. MENTAL STATUS EXAMINATION: Patient dressed in [facility]. The patient is minimally cooperative, at times selectively mute. Mood is euthymic. Affect is blunted. Continues delusional, paranoid. Memory, attention and concentration could not be tested. Insight and judgment is very poor. ASSESSMENT: 1. Schizophrenia. PLAN: 1. Continue Haldol 5 mg by mouth twice a day. 2. Prolixin decanoate 25 mg IM every 2 weeks. 3. Cogentin 1 mg by mouth twice a day.
[2017-08-15 22:19] VITALS: BP 137/83
[2017-08-16] MEDS: HALOPERIDOL 5 MG TAB PO SCH (09:00)
[2017-08-16] MEDS: BENZTROPINE 1 MG TAB PO SCH ×2 (09:00→21:00)
[2017-08-16] MEDS: VITAMIN D 1,000 INTERNATIONAL UNITS TABLET PO SCH (09:00)
[2017-08-16] MEDS: ASPIRIN 325 MG TAB PO SCH (09:00)
[2017-08-16] MEDS: FUROSEMIDE 40 MG TAB PO SCH (09:00)
[2017-08-16] MEDS: PANTOPRAZOLE 40MG TAB (PROTONIX) PO SCH (09:00)
[2017-08-16] MEDS: IBUPROFEN 600 MG TAB PO PRN (15:22)
--- NOTE | 2017-08-16 15:50 | MHIPN ---
DATE OF SERVICE: 08/16/2017 HISTORY: A 66-year-old female with a history of schizophrenia, admitted with paranoid delusions, talking about neighbors performing witchcraft on her, also talking about radiation and being poisoned. MEDICATIONS: - Prolixin decanoate 25 mg intramuscularly (IM) every 2 weeks - Cogentin 1 mg by mouth twice a day - Haldol 5 mg by mouth twice a day SUBJECTIVE: "Get out of here". OBJECTIVE: The patient is more paranoid this morning, not willing to engage in any conversation or to give me information. Does not appear to have side effects from the medication. Insight and judgment continues to be poor. MENTAL STATUS EXAMINATION: Patient dressed in [facility]. The patient is uncooperative this morning. Paranoid. Selectively mute. Mood is euthymic. Affect is blunted. Insight and judgment is very poor. ASSESSMENT: 1. Schizophrenia. PLAN: 1. Increase Haldol to 10 mg by mouth twice a day. 2. Continue Prolixin decanoate 25 mg intramuscularly (IM) every 2 weeks. 3. Cogentin 1 mg by mouth twice a day.
[2017-08-16 18:00] VITALS: BP 108/76
[2017-08-16] MEDS: OLANZapine ORAL DISINTEGRATING TAB 5MG PO PRN (18:24)
[2017-08-16] MEDS: HALOPERIDOL 10 MG TAB PO SCH (21:00)
[2017-08-17] MEDS: MAALOX 30 ML SUSP *UDC PO PRN (01:16)
[2017-08-17] MEDS: VITAMIN D 1,000 INTERNATIONAL UNITS TABLET PO SCH (09:00)
[2017-08-17] MEDS: BENZTROPINE 1 MG TAB PO SCH ×3 (09:00→21:00)
[2017-08-17] MEDS: FUROSEMIDE 40 MG TAB PO SCH ×2 (09:00→11:37)
[2017-08-17] MEDS: PANTOPRAZOLE 40MG TAB (PROTONIX) PO SCH (09:00)
[2017-08-17] MEDS: HALOPERIDOL 10 MG TAB PO SCH ×3 (09:00→21:00)
[2017-08-17] MEDS: ASPIRIN 325 MG TAB PO SCH ×2 (09:00→11:37)
[2017-08-17] MEDS: IPRATROPIUM 0.5MG/ALBUTEROL 2.5MG INH SOL UD 3ML (DUONEB)(J7620) NEB PRN (10:57)
[2017-08-17] MEDS: IBUPROFEN 600 MG TAB PO PRN (11:31)
[2017-08-18] MEDS: ASPIRIN 325 MG TAB PO SCH ×2 (09:00→12:07)
[2017-08-18] MEDS: FUROSEMIDE 40 MG TAB PO SCH ×2 (09:00→12:07)
[2017-08-18] MEDS: BENZTROPINE 1 MG TAB PO SCH ×3 (09:00→21:00)
[2017-08-18] MEDS: PANTOPRAZOLE 40MG TAB (PROTONIX) PO SCH ×2 (09:00→12:07)
[2017-08-18] MEDS: HALOPERIDOL 10 MG TAB PO SCH ×3 (09:00→21:00)
[2017-08-18] MEDS: VITAMIN D 1,000 INTERNATIONAL UNITS TABLET PO SCH ×2 (09:00→12:07)
[2017-08-19] MEDS: QUEtiapine FUMARATE 50 MG TAB PO PRN (01:30)
[2017-08-19] MEDS: VITAMIN D 1,000 INTERNATIONAL UNITS TABLET PO SCH (09:00)
[2017-08-19] MEDS: ASPIRIN 325 MG TAB PO SCH (09:00)
[2017-08-19] MEDS: PANTOPRAZOLE 40MG TAB (PROTONIX) PO SCH (09:00)
[2017-08-19] MEDS: BENZTROPINE 1 MG TAB PO SCH ×2 (09:00→21:00)
[2017-08-19] MEDS: HALOPERIDOL 10 MG TAB PO SCH ×2 (09:00→21:00)
[2017-08-19] MEDS: FUROSEMIDE 40 MG TAB PO SCH (09:00)
--- NOTE | 2017-08-19 12:44 | REP ---
CT Head without contrast HISTORY: Headache COMPARISON: None Areas of decreased attenuation are present in the periventricular white matter. This represents small-vessel ischemic disease. There is no intraparenchymal hemorrhage, acute infarct, mass or midline shift. The ventricular system and cortical sulci are dilated consistent with minimal volume loss. There is no extra cerebral collection. There is no fracture. The visualized sinuses are clear. IMPRESSION: 1. Small vessel ischemic disease. 2. Minimal volume loss. Signed by Cecil Trujillo MD 08/19/2017 12:36 P
[2017-08-19 18:00] VITALS: BP 114/69
--- NOTE | 2017-08-19 18:47 | MHIPN ---
DATE: 08/19/2017 HISTORY: 66-year-old female with a history of schizophrenia, admitted for paranoid delusions, talking about neighbors performing witchcraft on her and also talking about radiation and being poisoned. MEDICATIONS: - Prolixin decanoate 25 mg intramuscularly every 2 weeks - Cogentin 1 mg by mouth twice a day - Haldol 10 mg by mouth twice a day SUBJECTIVE: "I am very scared." OBJECTIVE: The patient is more approachable. Her speech is poor, but she is able to interact. She is less paranoid this morning. Denies side effects from medications. CT scan within normal limits. MENTAL STATUS EXAMINATION: The patient is dressed in [facility]. The patient is more cooperative. Continues paranoid. Mood is euthymic. Affect is blunted. Insight and judgment poor. ASSESSMENT: Schizophrenia. PLAN: 1. Continue Haldol 10 mg by mouth twice a day. 2. Continue Prolixin decanoate 25 mg intramuscularly every 2 weeks. 3. Continue Cogentin 1 mg.
[2017-08-20] MEDS: VITAMIN D 1,000 INTERNATIONAL UNITS TABLET PO SCH (09:00)
[2017-08-20] MEDS: ASPIRIN 325 MG TAB PO SCH (09:00)
[2017-08-20] MEDS: BENZTROPINE 1 MG TAB PO SCH ×2 (09:00→21:00)
[2017-08-20] MEDS: FUROSEMIDE 40 MG TAB PO SCH (09:00)
[2017-08-20] MEDS: HALOPERIDOL 10 MG TAB PO SCH (09:00)
[2017-08-20] MEDS: PANTOPRAZOLE 40MG TAB (PROTONIX) PO SCH (09:00)
--- NOTE | 2017-08-20 16:40 | MHIPN ---
DATE: 08/20/2017 HISTORY: 66-year-old female with a history of schizophrenia, admitted for paranoid delusions, talking about neighbors performing witchcraft on her and also talking about radiation and being poisoned. MEDICATIONS: - Prolixin decanoate 25 mg intramuscularly every 2 weeks - Cogentin 1 mg by mouth twice a day SUBJECTIVE: "I am very afraid." OBJECTIVE: The patient is calmer and is able to interact minimally in the one-to-one, although she continues to be paranoid and at times dismissive. The patient is not interacting with other patients. Has a tendency to stay in her room. MENTAL STATUS EXAMINATION: The patient is dressed in [facility]. The patient is cooperative. Continues paraoid. Mood is euthymic. Affect is blunted. Insight and judgment are very poor. ASSESSMENT: 1. Schizophrenia. PLAN: 1. Continue Prolixin decanoate 25 mg intramuscularly every 2 weeks. 2. Continue Cogentin 1 mg by mouth twice a day.
[2017-08-20 18:00] VITALS: BP 118/62
[2017-08-20] MEDS: IBUPROFEN 600 MG TAB PO PRN (18:14)
[2017-08-21] MEDS: BENZTROPINE 1 MG TAB PO SCH (08:44)
[2017-08-21] MEDS: VITAMIN D 1,000 INTERNATIONAL UNITS TABLET PO SCH (08:44)
[2017-08-21] MEDS: ASPIRIN 325 MG TAB PO SCH (08:44)
[2017-08-21] MEDS: FUROSEMIDE 40 MG TAB PO SCH (08:44)
[2017-08-21] MEDS: PANTOPRAZOLE 40MG TAB (PROTONIX) PO SCH (08:44)
--- NOTE | 2017-08-21 09:31 | MHDS ---
DATE OF ADMISSION: 07/05/2017 DATE OF DISCHARGE: 08/21/2017 HISTORY OF PRESENT ILLNESS: The following information is according to the initial evaluation of Dr. Ocasio, his progress notes and my own progress notes. On admission, Dr. Ocasio wrote she is 66 years old, has a long history if psychosis, essentially had several hospitalizations, is a poor historian, carries the diagnosis of schizophrenia. She was discharged earlier this January. Please refer to the nurse practitioners note regarding that. She was admitted in November after being discharged from the [facility] and after her discharge from here, has been seen at the clinic in [place]. She is on Prolixin IM. The history is not reliable. A lot of history obtained from this admission is from the chart. She had apparently called the police indicating that her neighbors were performed witchcraft on her and that this was resulting in radiation in her body and she wanted to go to the emergency department (ED) for blood work. She threw out her food because she felt they had poisoned it and that neighbors were interfering with her cat, felt there as radiation coming from the television and when seen at [facility] she was transferred to our emergency department. She indicated that she heard voices, did not elaborate on them. She said she had dental work done about a month ago. Labs at admission were not done since she was medically worked up at the [facility]. During this admission, her labs had been within normal limits except BUN that fluctuates from 22 to 29, her creatinine was 1.07 on 07/23 but then returned to normal limits. HOSPITAL COURSE: After first evaluation, she was admitted and restarted on Prolixin decanoate 12.5 mg IM every four weeks, but she continued to be delusional so Prolixin has been increased progressively up to 25 mg IM every two weeks. The patient has continued to be delusional and paranoid. The patient wants to take the Prolixin IM and is not open to other antipsychotics by mouth. Patient has received Haldol and Ativan a few time during this long hospitalization for periods of agitation and paranoia. This patient has had fluctuations of the mental throughout the hospitalization, but at this point she remains paranoid and delusional, has tendency to stay by herself, does not interact with other patient's and continues afraid that somebody will hurt her. A bed has become available at [facility] and she will be transferred there for continuation of care. At the moment of discharge, she is stable from the medical point of view, but continues paranoid and delusional. MENTAL STATUS EXAMINATION AT DISCHARGE: Patient is dressed in [facility]. Patient is partially cooperative, but continues to be paranoid. The patient is anxious, irritable, guarded. Cannot test attention, concentration, and memory. Patient appears to react to internal stimuli intermittently. Judgment and insight are very poor. MEDICATIONS AT DISCHARGE: - Prolixin decanoate 25 mg IM every two weeks - Seroquel 50 mg by mouth at bedtime as needed for insomnia - Cogentin 1 mg by mouth twice a day DISCHARGE DIAGNOSES: [place] I: Paranoid schizophrenia. [place] II: Deferred. [place] III: Hypertension. Chronic obstructive pulmonary disease (COPD). Migraines headaches. Hyperlipidemia. DISCHARGE INSTRUCTIONS: Patient is to be transferred to [facility] for continuation of care.
[2017-08-21] MEDS ORDERED: TYLE650T35 PO (10:03)
[2017-08-21] MEDS: IBUPROFEN 600 MG TAB PO PRN (11:27)
== END 2017-08-21 12:57 | DRG 885 ==
LOC: M ED 13:29 → M ED INP 17:06 → M PSY 18:41
PROVIDERS: ADMIT Psychiatry & Neurology Psychiatry; ATTEND Psychiatry & Neurology Psychiatry
DX: F20.0 Paranoid schizophrenia (principal); I10 Essential (primary) hypertension; J44.9 Chronic obstructive pulmonary disease, unspecified; E78.5 Hyperlipidemia, unspecified; G43.909 Migraine, unspecified, not intractable, without status migrainosus; Z79.899 Other long term (current) drug therapy; F17.200 Nicotine dependence, unspecified, uncomplicated; K21.9 Gastro-esophageal reflux disease without esophagitis; E55.9 Vitamin D deficiency, unspecified

== ENCOUNTER 2018-01-28 18:24 | Inpatient (IN) | payer MEDICARE, MEDICAID ==
[2018-01-28 18:52] LABS: HEMOGLOBIN 12.8 g/dl (12.0-15.5); MEAN CORPUSCULAR HEMOGLOBIN 29.2 pg (27.0-33.0); MEAN CORPUSCULAR HGB CONC 32.8 g/dl (32.0-36.5); MEAN CORPUSCULAR VOLUME 88.8 fl (80.0-96.0); PLATELET COUNT, AUTOMATED 207 10^3/uL (150-450); RED BLOOD COUNT 4.39 10^6/uL (4.00-5.40); RED CELL DISTRIBUTION WIDTH 13.9 % (11.5-14.5); WHITE BLOOD COUNT 9.9 10^3/uL (4.0-10.0)
[2018-01-28 19:15] LABS: AMPHETAMINES LEVEL URINE NEGATIVE (NEGATIVE); BARBITURATES URINE NEGATIVE (NEGATIVE); BENZODIAZEPINES URINE NEGATIVE (NEGATIVE); CANNABINOIDS URINE POSITIVE (NEGATIVE); COCAINE METABOLITE URINE NEGATIVE (NEGATIVE); METHADONE URINE NEGATIVE (NEGATIVE); OPIATES URINE NEGATIVE (NEGATIVE); PHENCYCLIDINE URINE NEGATIVE (NEGATIVE)
[2018-01-28 19:23] LABS: ACETAMINOPHEN LEVEL < 2.0 UG/ML (10.0-30.0); ALBUMIN 3.6 GM/DL (3.2-5.2); ALBUMIN/GLOBULIN RATIO 1.09 (1.00-1.93); ALKALINE PHOSPHATASE 113 U/L (45-117); ALT/SGPT 20 U/L (12-78); ANION GAP 9 MEQ/L (8-16); AST/SGOT 22 U/L (7-37); BILIRUBIN,DIRECT 0.1 MG/DL (0.0-0.2); BILIRUBIN,TOTAL 0.3 MG/DL (0.2-1.0); BLOOD UREA NITROGEN 9 MG/DL (7-18); CALCIUM LEVEL 8.7 MG/DL (8.8-10.2); CARBON DIOXIDE LEVEL 22 MEQ/L (21-32); CHLORIDE LEVEL 107 MEQ/L (98-107); ETHYL ALCOHOL (ETHANOL) < 0.003 % (0.000-0.010); GLOMERULAR FILTRATION RATE 58.9 (>45); GLUCOSE, FASTING 123 MG/DL (70-100); POTASSIUM SERUM 3.9 MEQ/L (3.5-5.1); SODIUM LEVEL 138 MEQ/L (136-145); THYROID STIMULATING HORMONE 0.595 uIU/ML (0.358-3.740); TOTAL PROTEIN 6.9 GM/DL (6.4-8.2)
[2018-01-28] MEDS ORDERED: traZODone 50 MG TAB PO (22:30)
[2018-01-28] MEDS ORDERED: MOM 30ML SUSPENSION UDC PO (22:30)
[2018-01-29] MEDS: OLANZapine ORAL DISINTEGRATING TAB 5MG PO ×2 (06:17→10:29)
[2018-01-29] MEDS: ACETAMINOPHEN TAB 650MG DOSE (2X325MG) PO (06:17)
[2018-01-29] MEDS: NICOTINE 21MG/24HR 1 EA TRANSDERMAL TD (08:44)
[2018-01-29] MEDS: VITAMIN D 1,000 INTERNATIONAL UNITS TABLET PO (09:00)
[2018-01-29] MEDS: FUROSEMIDE 20 MG TAB PO (09:00)
[2018-01-29] MEDS: PREVNAR 13 VACCINE SYRINGE (CPT CODE:90670) IM (09:00)
[2018-01-29] MEDS ORDERED: ALBUTEROL 90 MCG/ACT 8GM HFA INHALER INH (10:00)
[2018-01-29 10:58] LABS: ESTIMATED AVERAGE GLUCOSE 134 MG/DL (60-110); HEMOGLOBIN A1c 6.3 %
[2018-01-29] MEDS: LORazepam 2 MG TAB PO (12:39)
[2018-01-29] MEDS: MIRTAZAPINE 7.5MG PER 1/2 TABLET PO (21:00)
[2018-01-29] MEDS: BENZTROPINE 1 MG TAB PO (21:11)
[2018-01-29] MEDS: PROPRANOLOL 10 MG TAB PO (21:11)
[2018-01-29] MEDS: OLANZapine 2.5MG TABLET PO (21:12)
[2018-01-30] MEDS: ACETAMINOPHEN TAB 650MG DOSE (2X325MG) PO ×2 (00:35→07:45)
[2018-01-30] MEDS: TETRAHYDROZOLINE OPHTH 0.05% 15 ML BTL OU (00:49)
[2018-01-30] MEDS: PROPRANOLOL 10 MG TAB PO ×2 (08:17→20:50)
[2018-01-30] MEDS: BENZTROPINE 1 MG TAB PO ×2 (08:17→20:50)
[2018-01-30] MEDS: FUROSEMIDE 20 MG TAB PO (08:17)
[2018-01-30] MEDS: SERTRALINE HCL 25 MG TABLET PO (08:17)
[2018-01-30] MEDS: VITAMIN D 1,000 INTERNATIONAL UNITS TABLET PO (08:18)
[2018-01-30] MEDS: NICOTINE 21MG/24HR 1 EA TRANSDERMAL TD (08:18)
[2018-01-30 09:57] LABS: HEMATOCRIT 38.9 % (36.0-47.0); HEMOGLOBIN 12.4 g/dl (12.0-15.5); MEAN CORPUSCULAR HEMOGLOBIN 28.7 pg (27.0-33.0); MEAN CORPUSCULAR HGB CONC 31.9 g/dl (32.0-36.5); PLATELET COUNT, AUTOMATED 246 10^3/uL (150-450); RED BLOOD COUNT 4.32 10^6/uL (4.00-5.40); RED CELL DISTRIBUTION WIDTH 13.8 % (11.5-14.5); WHITE BLOOD COUNT 9.5 10^3/uL (4.0-10.0)
[2018-01-30 10:30] LABS: ALBUMIN 3.3 GM/DL (3.2-5.2); ALBUMIN/GLOBULIN RATIO 1.03 (1.00-1.93); ALKALINE PHOSPHATASE 104 U/L (45-117); ALT/SGPT 16 U/L (12-78); ANION GAP 6 MEQ/L (8-16); AST/SGOT 17 U/L (7-37); BILIRUBIN,TOTAL 0.3 MG/DL (0.2-1.0); BLOOD UREA NITROGEN 11 MG/DL (7-18); CALCIUM LEVEL 8.3 MG/DL (8.8-10.2); CARBON DIOXIDE LEVEL 25 MEQ/L (21-32); CHLORIDE LEVEL 101 MEQ/L (98-107); CREATININE FOR GFR 0.92 MG/DL (0.55-1.30); GLOMERULAR FILTRATION RATE > 60.0 (>45); GLUCOSE, FASTING 131 MG/DL (70-100); POTASSIUM SERUM 4.6 MEQ/L (3.5-5.1); SODIUM LEVEL 132 MEQ/L (136-145); TOTAL PROTEIN 6.5 GM/DL (6.4-8.2)
[2018-01-30] MEDS: OLANZapine ORAL DISINTEGRATING TAB 5MG PO (11:20)
[2018-01-30] MEDS: MAALOX 30 ML SUSP *UDC PO (19:41)
[2018-01-30] MEDS: OLANZapine 2.5MG TABLET PO (20:50)
[2018-01-30] MEDS: MIRTAZAPINE 7.5MG PER 1/2 TABLET PO (20:50)
[2018-01-31] MEDS: VITAMIN D 1,000 INTERNATIONAL UNITS TABLET PO (08:21)
[2018-01-31] MEDS: BENZTROPINE 1 MG TAB PO ×2 (08:21→21:06)
[2018-01-31] MEDS: SERTRALINE HCL 25 MG TABLET PO (08:22)
[2018-01-31] MEDS: FUROSEMIDE 20 MG TAB PO (08:22)
[2018-01-31] MEDS: PROPRANOLOL 10 MG TAB PO ×2 (08:22→21:00)
[2018-01-31] MEDS: NICOTINE 21MG/24HR 1 EA TRANSDERMAL TD (08:22)
[2018-01-31] MEDS: ACETAMINOPHEN TAB 650MG DOSE (2X325MG) PO (12:13)
[2018-01-31] MEDS: MIRTAZAPINE 7.5MG PER 1/2 TABLET PO (21:00)
[2018-01-31] MEDS: OLANZapine 2.5MG TABLET PO (21:00)
[2018-02-01] MEDS: NICOTINE 21MG/24HR 1 EA TRANSDERMAL TD (08:47)
[2018-02-01] MEDS: PROPRANOLOL 10 MG TAB PO ×3 (09:00→19:55)
[2018-02-01] MEDS: VITAMIN D 1,000 INTERNATIONAL UNITS TABLET PO (09:00)
[2018-02-01] MEDS: FUROSEMIDE 20 MG TAB PO (09:00)
[2018-02-01] MEDS: OLANZapine 2.5MG TABLET PO (09:00)
[2018-02-01] MEDS: SERTRALINE HCL 25 MG TABLET PO ×2 (09:00)
[2018-02-01 09:22] LABS: ANION GAP 6 MEQ/L (8-16); BLOOD UREA NITROGEN 12 MG/DL (7-18); CALCIUM LEVEL 9.4 MG/DL (8.8-10.2); CARBON DIOXIDE LEVEL 26 MEQ/L (21-32); CHLORIDE LEVEL 108 MEQ/L (98-107); CHOLESTEROL LEVEL 219 MG/DL (<200); CHOLESTEROL RISK RATIO 3.421 (<5); CREATININE FOR GFR 1.22 MG/DL (0.55-1.30); GLOMERULAR FILTRATION RATE 46.8 (>45); GLUCOSE, FASTING 126 MG/DL (70-100); HDL CHOLESTEROL 64 MG/DL (>40); LDL CHOLESTEROL 128.2 MG/DL (<100); NON-HDL-C 155 MG/DL; POTASSIUM SERUM 4.4 MEQ/L (3.5-5.1); SODIUM LEVEL 140 MEQ/L (136-145); TRIGLYCERIDES LEVEL 134 MG/DL (<150)
[2018-02-01] MEDS: BENZTROPINE 1 MG TAB PO ×2 (09:36→19:55)
[2018-02-01] MEDS: OLANZapine ORAL DISINTEGRATING TAB 5MG PO (11:12)
[2018-02-01] MEDS: ACETAMINOPHEN TAB 650MG DOSE (2X325MG) PO (15:42)
[2018-02-01] MEDS: MIRTAZAPINE 7.5MG PER 1/2 TABLET PO (19:55)
[2018-02-01] MEDS: OLANZapine 5 MG TAB PO (19:56)
[2018-02-02] MEDS: diphenhydrAMINE INJ 50MG/ML VIAL (J1200) IM (05:03)
[2018-02-02] MEDS: OLANZapine INTRAMUSCULAR 10 MG VIAL (S0166) IM (05:03)
[2018-02-02] MEDS: NICOTINE 21MG/24HR 1 EA TRANSDERMAL TD (09:00)
[2018-02-02] MEDS: PROPRANOLOL 10 MG TAB PO ×2 (09:03→21:13)
[2018-02-02] MEDS: VITAMIN D 1,000 INTERNATIONAL UNITS TABLET PO (09:03)
[2018-02-02] MEDS: FUROSEMIDE 20 MG TAB PO (09:03)
[2018-02-02] MEDS: SERTRALINE HCL 50 MG TAB PO (09:03)
[2018-02-02] MEDS: ACETAMINOPHEN TAB 650MG DOSE (2X325MG) PO (18:14)
[2018-02-02] MEDS: OLANZapine ORAL DISINTEGRATING TAB 5MG PO (18:14)
[2018-02-02] MEDS: TETRAHYDROZOLINE OPHTH 0.05% 15 ML BTL OU (18:28)
[2018-02-02] MEDS: MIRTAZAPINE 7.5MG PER 1/2 TABLET PO (21:09)
[2018-02-02] MEDS: BENZTROPINE 1 MG TAB PO (21:10)
[2018-02-02] MEDS: OLANZapine 5 MG TAB PO (21:11)
[2018-02-03] MEDS: MAALOX 30 ML SUSP *UDC PO (00:01)
[2018-02-03] MEDS: BENZTROPINE 1 MG TAB PO ×2 (02:06→20:11)
[2018-02-03] MEDS: VITAMIN D 1,000 INTERNATIONAL UNITS TABLET PO (08:18)
[2018-02-03] MEDS: PROPRANOLOL 10 MG TAB PO ×2 (08:18→21:00)
[2018-02-03] MEDS: FUROSEMIDE 20 MG TAB PO (08:19)
[2018-02-03] MEDS: SERTRALINE HCL 50 MG TAB PO (08:19)
[2018-02-03] MEDS: OLANZapine ORAL DISINTEGRATING TAB 5MG PO (08:19)
[2018-02-03] MEDS: NICOTINE 21MG/24HR 1 EA TRANSDERMAL TD (08:21)
[2018-02-03] MEDS: MIRTAZAPINE 7.5MG PER 1/2 TABLET PO (21:00)
[2018-02-03] MEDS: OLANZapine 5 MG TAB PO (21:00)
[2018-02-04] MEDS: VITAMIN D 1,000 INTERNATIONAL UNITS TABLET PO (09:00)
[2018-02-04] MEDS: NICOTINE 21MG/24HR 1 EA TRANSDERMAL TD (09:00)
[2018-02-04] MEDS: PROPRANOLOL 10 MG TAB PO ×2 (09:00→20:11)
[2018-02-04] MEDS: SERTRALINE HCL 50 MG TAB PO (09:11)
[2018-02-04] MEDS: FUROSEMIDE 20 MG TAB PO (09:11)
[2018-02-04] MEDS: TETRAHYDROZOLINE OPHTH 0.05% 15 ML BTL OU (10:22)
[2018-02-04] MEDS: PALIPERIDONE 3 MG ER TAB (INVEGA) PO (11:38)
[2018-02-04] MEDS: OLANZapine 10 MG TAB PO (20:11)
[2018-02-04] MEDS: MIRTAZAPINE 7.5MG PER 1/2 TABLET PO (20:11)
[2018-02-04] MEDS: BENZTROPINE 1 MG TAB PO (20:11)
[2018-02-05] MEDS: CEPACOL LOZENGE PO (05:33)
[2018-02-05] MEDS: PROPRANOLOL 10 MG TAB PO ×2 (08:27→21:00)
[2018-02-05] MEDS: SERTRALINE HCL 50 MG TAB PO (08:27)
[2018-02-05] MEDS: VITAMIN D 1,000 INTERNATIONAL UNITS TABLET PO (08:27)
[2018-02-05] MEDS: PALIPERIDONE 6 MG ER TAB (INVEGA) PO ×2 (08:27→21:00)
[2018-02-05] MEDS: FUROSEMIDE 20 MG TAB PO (08:27)
[2018-02-05] MEDS: NICOTINE 21MG/24HR 1 EA TRANSDERMAL TD (08:28)
[2018-02-05] MEDS: TETRAHYDROZOLINE OPHTH 0.05% 15 ML BTL OU (11:25)
[2018-02-05] MEDS: ACETAMINOPHEN TAB 650MG DOSE (2X325MG) PO (18:46)
[2018-02-05] MEDS: MIRTAZAPINE 7.5MG PER 1/2 TABLET PO (21:00)
[2018-02-05] MEDS: BENZTROPINE 1 MG TAB PO (21:00)
[2018-02-05] MEDS: OLANZapine 10 MG TAB PO (21:00)
[2018-02-06] MEDS: ACETAMINOPHEN TAB 650MG DOSE (2X325MG) PO (05:46)
[2018-02-06] MEDS: OLANZapine ORAL DISINTEGRATING TAB 5MG PO ×2 (05:59→11:55)
[2018-02-06] MEDS: PALIPERIDONE 6 MG ER TAB (INVEGA) PO ×2 (09:15→21:00)
[2018-02-06] MEDS: PROPRANOLOL 10 MG TAB PO ×2 (09:15→21:00)
[2018-02-06] MEDS: FUROSEMIDE 20 MG TAB PO (09:15)
[2018-02-06] MEDS: VITAMIN D 1,000 INTERNATIONAL UNITS TABLET PO (09:15)
[2018-02-06] MEDS: SERTRALINE HCL 50 MG TAB PO (09:15)
[2018-02-06] MEDS: NICOTINE 21MG/24HR 1 EA TRANSDERMAL TD ×2 (09:16→09:30)
[2018-02-06] MEDS: OLANZapine 10 MG TAB PO (21:00)
[2018-02-06] MEDS: BENZTROPINE 1 MG TAB PO (21:00)
[2018-02-06] MEDS: MIRTAZAPINE 7.5MG PER 1/2 TABLET PO (21:00)
[2018-02-07] MEDS: PALIPERIDONE 6 MG ER TAB (INVEGA) PO (08:33)
[2018-02-07] MEDS: FUROSEMIDE 20 MG TAB PO (08:33)
[2018-02-07] MEDS: SERTRALINE HCL 50 MG TAB PO (08:33)
[2018-02-07] MEDS: PROPRANOLOL 10 MG TAB PO ×2 (08:33→21:00)
[2018-02-07] MEDS: VITAMIN D 1,000 INTERNATIONAL UNITS TABLET PO (08:33)
[2018-02-07] MEDS: OLANZapine ORAL DISINTEGRATING TAB 5MG PO (13:01)
[2018-02-07] MEDS: TETRAHYDROZOLINE OPHTH 0.05% 15 ML BTL OU (13:01)
[2018-02-07] MEDS: MIRTAZAPINE 7.5MG PER 1/2 TABLET PO (21:00)
[2018-02-07] MEDS ORDERED: PRAZOSIN 1 MG CAP PO (21:00)
[2018-02-08] MEDS: BENZTROPINE 1 MG TAB PO (08:39)
[2018-02-08] MEDS: FUROSEMIDE 20 MG TAB PO (08:40)
[2018-02-08] MEDS: VITAMIN D 1,000 INTERNATIONAL UNITS TABLET PO (08:40)
[2018-02-08] MEDS: PALIPERIDONE 6 MG ER TAB (INVEGA) PO (08:40)
[2018-02-08] MEDS: SERTRALINE HCL 50 MG TAB PO (08:40)
[2018-02-08] MEDS: PROPRANOLOL 10 MG TAB PO ×2 (08:40→21:00)
[2018-02-08] MEDS: TETRAHYDROZOLINE OPHTH 0.05% 15 ML BTL OU (08:41)
[2018-02-08] MEDS: NICOTINE 21MG/24HR 1 EA TRANSDERMAL TD (08:42)
[2018-02-08] MEDS ORDERED: OLANZapine 10 MG TAB PO (09:00)
[2018-02-08] MEDS: OLANZapine 10 MG TAB PO (21:00)
[2018-02-08] MEDS: MIRTAZAPINE 7.5MG PER 1/2 TABLET PO (21:00)
[2018-02-09] MEDS: NICOTINE 21MG/24HR 1 EA TRANSDERMAL TD (09:00)
[2018-02-09] MEDS: BENZTROPINE 1 MG TAB PO (09:22)
[2018-02-09] MEDS: PROPRANOLOL 10 MG TAB PO ×2 (09:23→20:05)
[2018-02-09] MEDS: SERTRALINE HCL 50 MG TAB PO (09:23)
[2018-02-09] MEDS: FUROSEMIDE 20 MG TAB PO (09:23)
[2018-02-09] MEDS: PALIPERIDONE 6 MG ER TAB (INVEGA) PO (09:23)
[2018-02-09] MEDS: VITAMIN D 1,000 INTERNATIONAL UNITS TABLET PO (09:23)
[2018-02-09] MEDS: MIRTAZAPINE 7.5MG PER 1/2 TABLET PO (20:05)
[2018-02-09] MEDS: OLANZapine 10 MG TAB PO (20:05)
[2018-02-10] MEDS: NICOTINE 21MG/24HR 1 EA TRANSDERMAL TD (09:00)
[2018-02-10] MEDS: BENZTROPINE 1 MG TAB PO (09:00)
[2018-02-10] MEDS: VITAMIN D 1,000 INTERNATIONAL UNITS TABLET PO (09:24)
[2018-02-10] MEDS: PROPRANOLOL 10 MG TAB PO ×2 (09:24→20:25)
[2018-02-10] MEDS: FUROSEMIDE 20 MG TAB PO (09:25)
[2018-02-10] MEDS: PALIPERIDONE 6 MG ER TAB (INVEGA) PO (09:25)
[2018-02-10] MEDS: SERTRALINE HCL 50 MG TAB PO (09:25)
[2018-02-10] MEDS: BENZTROPINE 2 MG TAB PO (09:29)
[2018-02-10] MEDS: ACETAMINOPHEN TAB 650MG DOSE (2X325MG) PO (18:51)
[2018-02-10] MEDS: MIRTAZAPINE 7.5MG PER 1/2 TABLET PO (20:26)
[2018-02-10] MEDS: OLANZapine 10 MG TAB PO (20:26)
[2018-02-10] MEDS: BACITRACIN OINT 30GM TOP (20:28)
[2018-02-10] MEDS: LORazepam 2 MG/ML VIAL (J2060) IM (23:46)
[2018-02-11] MEDS: ACETAMINOPHEN TAB 650MG DOSE (2X325MG) PO (07:36)
[2018-02-11] MEDS: NICOTINE 21MG/24HR 1 EA TRANSDERMAL TD (09:00)
[2018-02-11] MEDS: BENZTROPINE 2 MG TAB PO (09:25)
[2018-02-11] MEDS: FUROSEMIDE 20 MG TAB PO (09:25)
[2018-02-11] MEDS: SERTRALINE HCL 50 MG TAB PO (09:25)
[2018-02-11] MEDS: PALIPERIDONE 6 MG ER TAB (INVEGA) PO (09:25)
[2018-02-11] MEDS: VITAMIN D 1,000 INTERNATIONAL UNITS TABLET PO (09:26)
[2018-02-11] MEDS: PROPRANOLOL 10 MG TAB PO ×2 (09:26→21:00)
[2018-02-11] MEDS: BACITRACIN OINT 30GM TOP ×2 (09:26→21:00)
[2018-02-11] MEDS: MIRTAZAPINE 7.5MG PER 1/2 TABLET PO (21:00)
[2018-02-12] MEDS: OLANZapine ORAL DISINTEGRATING TAB 5MG PO (01:49)
[2018-02-12] MEDS: PROPRANOLOL 10 MG TAB PO ×2 (09:00→21:00)
[2018-02-12] MEDS: PALIPERIDONE 6 MG ER TAB (INVEGA) PO (09:00)
[2018-02-12] MEDS: OLANZapine 10 MG TAB PO (09:00)
[2018-02-12] MEDS: SERTRALINE HCL 50 MG TAB PO (09:00)
[2018-02-12] MEDS: FUROSEMIDE 20 MG TAB PO (09:00)
[2018-02-12] MEDS: BENZTROPINE 2 MG TAB PO (09:00)
[2018-02-12] MEDS: NICOTINE 21MG/24HR 1 EA TRANSDERMAL TD (09:00)
[2018-02-12] MEDS: VITAMIN D 1,000 INTERNATIONAL UNITS TABLET PO (09:00)
[2018-02-12] MEDS: BACITRACIN OINT 30GM TOP ×2 (09:00→21:00)
[2018-02-12] MEDS: MIRTAZAPINE 7.5MG PER 1/2 TABLET PO (21:00)
[2018-02-12] MEDS: ACETAMINOPHEN TAB 650MG DOSE (2X325MG) PO (22:29)
[2018-02-13] MEDS: CEPACOL LOZENGE PO (03:39)
[2018-02-13] MEDS: ACETAMINOPHEN TAB 650MG DOSE (2X325MG) PO (04:51)
[2018-02-13] MEDS: FUROSEMIDE 20 MG TAB PO (08:17)
[2018-02-13] MEDS: BENZTROPINE 2 MG TAB PO (08:17)
[2018-02-13] MEDS: VITAMIN D 1,000 INTERNATIONAL UNITS TABLET PO (08:17)
[2018-02-13] MEDS: BACITRACIN OINT 30GM TOP ×2 (08:17→21:00)
[2018-02-13] MEDS: OLANZapine 10 MG TAB PO (08:18)
[2018-02-13] MEDS: SERTRALINE HCL 50 MG TAB PO (08:18)
[2018-02-13] MEDS: PALIPERIDONE 6 MG ER TAB (INVEGA) PO (08:18)
[2018-02-13] MEDS: PROPRANOLOL 10 MG TAB PO ×2 (08:18→21:00)
[2018-02-13] MEDS: NICOTINE 21MG/24HR 1 EA TRANSDERMAL TD (08:20)
[2018-02-13] MEDS: MIRTAZAPINE 7.5MG PER 1/2 TABLET PO (21:00)
[2018-02-14] MEDS: VITAMIN D 1,000 INTERNATIONAL UNITS TABLET PO (08:22)
[2018-02-14] MEDS: PROPRANOLOL 10 MG TAB PO ×2 (08:23→21:00)
[2018-02-14] MEDS: BENZTROPINE 2 MG TAB PO (08:23)
[2018-02-14] MEDS: PALIPERIDONE 6 MG ER TAB (INVEGA) PO (08:23)
[2018-02-14] MEDS: SERTRALINE HCL 50 MG TAB PO (08:23)
[2018-02-14] MEDS: OLANZapine 10 MG TAB PO (08:23)
[2018-02-14] MEDS: BACITRACIN OINT 30GM TOP ×2 (08:23→21:00)
[2018-02-14] MEDS: FUROSEMIDE 20 MG TAB PO (08:23)
[2018-02-14] MEDS: NICOTINE 21MG/24HR 1 EA TRANSDERMAL TD (08:23)
[2018-02-14] MEDS: TETRAHYDROZOLINE OPHTH 0.05% 15 ML BTL OU (11:57)
[2018-02-14] MEDS: OLANZapine ORAL DISINTEGRATING TAB 5MG PO (13:47)
[2018-02-14] MEDS: MIRTAZAPINE 7.5MG PER 1/2 TABLET PO (21:00)
[2018-02-15] MEDS: VITAMIN D 1,000 INTERNATIONAL UNITS TABLET PO (10:30)
[2018-02-15] MEDS: NICOTINE 21MG/24HR 1 EA TRANSDERMAL TD (10:30)
[2018-02-15] MEDS: BENZTROPINE 2 MG TAB PO (10:30)
[2018-02-15] MEDS: OLANZapine 10 MG TAB PO (10:30)
[2018-02-15] MEDS: BACITRACIN OINT 30GM TOP ×2 (10:30→21:00)
[2018-02-15] MEDS: PROPRANOLOL 10 MG TAB PO ×2 (10:30→21:00)
[2018-02-15] MEDS: SERTRALINE HCL 50 MG TAB PO (10:30)
[2018-02-15] MEDS: PALIPERIDONE 6 MG ER TAB (INVEGA) PO (10:30)
[2018-02-15] MEDS: FUROSEMIDE 20 MG TAB PO (10:30)
[2018-02-15] MEDS: MIRTAZAPINE 7.5MG PER 1/2 TABLET PO (21:00)
[2018-02-16] MEDS: PROPRANOLOL 10 MG TAB PO ×2 (10:00→20:25)
[2018-02-16] MEDS: FUROSEMIDE 20 MG TAB PO (10:00)
[2018-02-16] MEDS: PALIPERIDONE 6 MG ER TAB (INVEGA) PO (10:00)
[2018-02-16] MEDS: VITAMIN D 1,000 INTERNATIONAL UNITS TABLET PO (10:00)
[2018-02-16] MEDS: BACITRACIN OINT 30GM TOP ×2 (10:00→20:25)
[2018-02-16] MEDS: SERTRALINE HCL 50 MG TAB PO (10:00)
[2018-02-16] MEDS: NICOTINE 21MG/24HR 1 EA TRANSDERMAL TD (10:00)
[2018-02-16] MEDS: OLANZapine 10 MG TAB PO (10:00)
[2018-02-16] MEDS: BENZTROPINE 2 MG TAB PO (10:00)
[2018-02-16] MEDS: MIRTAZAPINE 7.5MG PER 1/2 TABLET PO (20:25)
[2018-02-17] MEDS: CEPHALEXIN 500 MG CAP PO ×2 (06:00→11:35)
[2018-02-17] MEDS ORDERED: MUPIROCIN 2% OINT 22 GM TUBE TOP (08:45)
[2018-02-17] MEDS: NICOTINE 21MG/24HR 1 EA TRANSDERMAL TD (09:00)
[2018-02-17] MEDS: OLANZapine 10 MG TAB PO ×2 (09:00→12:17)
[2018-02-17] MEDS: FUROSEMIDE 20 MG TAB PO (09:00)
[2018-02-17] MEDS: SERTRALINE HCL 50 MG TAB PO (09:00)
[2018-02-17] MEDS: BACITRACIN OINT 30GM TOP (09:00)
[2018-02-17] MEDS: BENZTROPINE 2 MG TAB PO (09:00)
[2018-02-17] MEDS: PROPRANOLOL 10 MG TAB PO (09:00)
[2018-02-17] MEDS: VITAMIN D 1,000 INTERNATIONAL UNITS TABLET PO (09:00)
[2018-02-17] MEDS: PALIPERIDONE 6 MG ER TAB (INVEGA) PO (09:00)
[2018-02-17] MEDS: ACETAMINOPHEN TAB 650MG DOSE (2X325MG) PO (12:17)
== END 2018-02-17 14:00 | DRG 885 ==
LOC: M ED 18:24 → M ED INP 20:44 → M PSY 21:25
DX: F20.0 Paranoid schizophrenia (principal); L02.31 Cutaneous abscess of buttock; F12.10 Cannabis abuse, uncomplicated; F17.210 Nicotine dependence, cigarettes, uncomplicated; J44.9 Chronic obstructive pulmonary disease, unspecified; E78.5 Hyperlipidemia, unspecified; I12.9 Hypertensive chronic kidney disease with stage 1 through stage 4 chronic kidney disease, or unspecified chronic kidney disease; N18.3 Chronic kidney disease, stage 3 (moderate); R49.0 Dysphonia; Z91.14 Patient's other noncompliance with medication regimen; Z79.899 Other long term (current) drug therapy

== ENCOUNTER 2019-02-10 10:29 | Inpatient (IN) | payer MEDICAID, MEDICARE ==
[~2019-02-10] VITALS: Ht 167.6 cm; Wt 78.2 kg
[~2019-02-10 10:29] MED LIST changes: -/DIVA12TA; -/DIVA50TA PO; -/ESCI10TA; -/HALO5TAB PO; -/OLAN5ZYD OR; +ARIP1TAB4 PO; -ASPI1TAB PO; -ASPI81CH; +ASPI81CH49; +ASPI81TA26 PO; +BACI50OI TOP; +BAYE325T12 PO; -BENZ1TA PO; +BENZ1TAB42 PO; -BENZ2TA PO; +BENZ2TAB33 PO; +BENZ2TAB5 PO; +CALC1TAB21 PO; +CEPH500C PO; -CLON0.5T PO; +CLON0.5T8 PO; +DEPA1TAB; +DEPA1TAB3 PO; +DIVA250T67 PO; +FLUP25VL IM; +FURO20TA2 PO; -HALO10TA PO; +HALO1TAB19 PO; +HALO1TAB21 PO; +HALO1TAB29 PO; -HALO2TA PO; -LASI40TA; +LASI40TA9; +LEXA1TAB; -LEXAPRO; +MIRT1TAB PO; +MUPI2OI TOP; +OLAN10TA2 PO; -OLAN20TA; -OLAN20TA PO; +OLAN20TA14; +OLAN20TA14 PO; +OLAN7.5T PO; +PALI1TAB3 PO; +PATIENT COMMENT; +PROAAER10 INH; +PROP10TA55 PO; +SERT-141 PO; +SERT25TA85 PO; -SERT50TA PO; +TRAZ-252 PO; -TRAZ50TA11 PO; +TYLE650T35 PO; +VENTAER INH; +VITA100066 PO; +VITA100067 PO; +ZYPR1TAB3 OR; +unable to verify
[2019-02-10 11:46] LABS: HEMATOCRIT 41.2 % (36.0-47.0); MEAN CORPUSCULAR HGB CONC 31.6 g/dl (32.0-36.5); MEAN CORPUSCULAR VOLUME 88.8 fl (80.0-96.0); PLATELET COUNT, AUTOMATED 198 10^3/uL (150-450); RED BLOOD COUNT 4.64 10^6/uL (4.00-5.40); WHITE BLOOD COUNT 8.8 10^3/uL (4.0-10.0)
[2019-02-10] MEDS ORDERED: SERT-138 PO (11:58)
[2019-02-10] MEDS ORDERED: BENZ-52 PO (11:58)
[2019-02-10] MEDS ORDERED: OLAN5TAB PO (11:58)
[2019-02-10] MEDS ORDERED: DIVA500T94 PO (11:58)
[2019-02-10] MEDS ORDERED: OLAN20TA14 PO (11:58)
[2019-02-10] MEDS ORDERED: FURO20TA2 PO (11:58)
[2019-02-10] MEDS ORDERED: INVE234I IM (11:58)
[2019-02-10] MEDS ORDERED: FLUO20CA8 PO (11:58)
[2019-02-10 12:17] LABS: AMPHETAMINES LEVEL URINE NEGATIVE (NEGATIVE); BARBITURATES URINE NEGATIVE (NEGATIVE); BENZODIAZEPINES URINE NEGATIVE (NEGATIVE); CANNABINOIDS URINE NEGATIVE (NEGATIVE); COCAINE METABOLITE URINE NEGATIVE (NEGATIVE); METHADONE URINE NEGATIVE (NEGATIVE); OPIATES URINE NEGATIVE (NEGATIVE); PHENCYCLIDINE URINE NEGATIVE (NEGATIVE)
[2019-02-10 12:20] LABS: ACETAMINOPHEN LEVEL < 2.0 UG/ML (10.0-30.0); ALBUMIN 3.2 GM/DL (3.2-5.2); ALT/SGPT 15 U/L (12-78); BILIRUBIN,DIRECT < 0.1 MG/DL (0.0-0.2); BILIRUBIN,TOTAL 0.2 MG/DL (0.2-1.0); BLOOD UREA NITROGEN 20 MG/DL (7-18); CALCIUM LEVEL 8.7 MG/DL (8.8-10.2); CARBON DIOXIDE LEVEL 23 MEQ/L (21-32); CHLORIDE LEVEL 106 MEQ/L (98-107); CREATININE FOR GFR 0.76 MG/DL (0.55-1.30); ETHYL ALCOHOL (ETHANOL) < 0.003 % (0.000-0.010); GLOMERULAR FILTRATION RATE > 60.0 (>45); GLUCOSE, FASTING 103 MG/DL (70-100); POTASSIUM SERUM 4.7 MEQ/L (3.5-5.1); SALICYLATE LEVEL 4.6 MG/DL (5.0-30.0); SODIUM LEVEL 139 MEQ/L (136-145)
[2019-02-10] MEDS ORDERED: LORazepam 2 MG TAB PO STA (14:59)
[2019-02-10] MEDS ORDERED: MOM 30ML SUSPENSION UDC PO PRN (19:15)
[2019-02-10] MEDS ORDERED: traZODone 50 MG TAB PO PRN (19:15)
[2019-02-10] MEDS ORDERED: DIVALPROEX 500 MG TAB PO ONE (22:00)
[2019-02-10] MEDS ORDERED: BENZTROPINE 1 MG TAB PO ONE (22:00)
[2019-02-10] MEDS ORDERED: OLANZapine 10 MG TAB PO ONE (22:00)
[2019-02-11 03:02] VITALS: BP 166/86
[2019-02-11] MEDS: OLANZapine 5 MG TAB PO SCH (09:26)
[2019-02-11 11:54] VITALS: BP 140/82
--- NOTE | 2019-02-11 12:45 | HPEPDOC ---
General Date of Admission February 10, 2019 at 19:06 Date of Service: February 11, 2019 Attending Physician: DAVID HERNANDEZ MD Chief Complaint The patient is a 68-year-old female admitted with a reason for visit of Schizophrenia. History of Present Illness Patient is a 68-year-old female, past medical history significant for schizophrenia, societal ideation, depression, admitted to inpatient psychiatric unit on account of acute paranoid delusions. Patient had not taken her medications prior to presentation at the hospital due to paranoia. There was report of patient thinking someone was putting something into her Gatorade and so she was not taking her medications. On assessment, she is pleasant, complains of intermittent cough since yesterday, but otherwise, denies chest pain, shortness of breath, chills or malaise. Home Medications Scheduled Benztropine Mesylate (Benztropine Mesylate) 1 Mg Tablet, 1 MG PO BID, (Reported) Divalproex Sodium (Divalproex Sodium) 500 Mg Tablet.dr, 500 MG PO BID, (Reported) Fluoxetine Hcl (Fluoxetine HCl) 20 Mg Capsule, 20 MG PO DAILY, (Reported) Furosemide (Furosemide) 20 Mg Tablet, 20 MG PO DAILY, (Reported) Olanzapine (Olanzapine) 5 Mg Tablet, 5 MG PO QAM, (Reported) Olanzapine (Olanzapine) 20 Mg Tablet, 20 MG PO QHS, (Reported) Paliperidone Palmitate (Invega Sustenna) 234 Mg/1.5 Ml Syringe, 234 MG IM QMONTH, (Reported) DUE February Sertraline HCl (Sertraline HCl) 100 Mg Tablet, 200 MG PO DAILY, (Reported) Allergies Coded Allergies: No Known Allergies (Verified , 10/30/03) Past Medical History Medical History Paranoid schizophrenia Depression Surgical History Exploratory laparoscopy Umbilical hernia repair Family History Significant Family History: Unable to assess Social History * Smoker: less than 1 pack/day Alcohol: Denies Drugs: marijuana A-FIB/CHADSVASC A-FIB History Current/History of A-Fib/PAF?: No Current PO Anticoag Therapy: No Review of Systems Other systems Review of systems is limited due to patient's mental status Physical Examination Other physical findings GENERAL: NAD SKIN : Warm, dry intact HEENT: Atraumatic, normocephalic, PERRL, moist mucous membrane CARDIOVASCULAR: Regular rate and rhythm, S1S2, no JVD, no edema, distal pulses + and palpable RESP: CTAB, no accessory muscle use noted ABDOMEN: BS+ non distended non tender MS: no joint deformities NEURO: Alert and oriented x 3, CN2-12 grossly intact PSYCH: no anxiety or agitation, appropriate mood and affect. Vital Signs Vital Signs Date Time Temp Pulse Resp B/P (MAP) Pulse Ox O2 Delivery O2 Flow Rate FiO2 02/11/19 11:54 97.6 91 18 140/82 (101) 02/11/19 03:02 98 Assessment/Plan Cough Acute paranoid schizophrenia Depression PLAN Patient's cough complaints sound like irritation due to mild allergy, loratadine as needed. Management of acute mental issues by primary team. DVT prophylaxis not indicated at this time since patient is ambulatory. Please reconsult medical team for concerns Plan / VTE VTE Prophylaxis Ordered?: No VTE Exclusion Mechanical Proph: Low Risk for VTE CLAIR BENITEZ SHANK TAPER February 11, 2019 12:45
[2019-02-11] MEDS: LORATADINE 10 MG TAB PO SCH (13:42)
--- NOTE | 2019-02-11 16:37 | MHHPEPDOC ---
[facility] History & Physical History and Physical DATE OF ADMISSION: February 10, 2019 at 19:06 LEGAL STATUS AT ADMISSION: . CHIEF COMPLAINT: . HISTORY OF PRESENT ILLNESS: Patient is a 68-year-old female, who, as per ED rep ort: "Police Agency and Officer * LIBBY Pinedo, #96 Reason for Referral Pt was brought into the ED after calling 911, by LIBBY Pinedo #96, per pt. Pt reports, "I am feeling depressed and sad, not suicidal," Pt presents with paranoid delusions, "people are messing with my Gatorade, and my medications, have not been taking them for over a week." Pt reports throwing her medications out one week ago, the voices are from a "Christianity science man, he is telling me to masturbate, because he wants to see me do it." Pt states she is not sleeping well, and is a "finicky eater," presents tearfully, denies SI, and HI, drinks wine and smokes pot, sees a man that sneaks into her apartment and messes with her mind, doesn't like the medications at night, "the big one almost stops my heart." Pt's speech is tangential; she is soft spoken, tearful, good eye contact, disheveled, does not know her Y doctor's name she sees Terrie Kellogg as a therapist". Saw Samira today and she says she called "the clinic manager" because there's a man that has been harassing her. He is her neighbor, she says. then, she narrates a conf using story, including the fact that her sheets have snake prints on them, she doesn't know if they flew in there, like witches. While she is telling me all of this, she is holding a bible close to her heart and terfully, she says she didn't have bible at home because it could have protected from them. She wants to know if she has been receiving the right medications or if she has been poisoned. Psychiatric Review of Systems Depression: Insomnia, tearfulness, anhedonia. Lucia (4 or more days of): Racing thoughts, flight of ideas Psychosis: auditory hallucination, delusions, paranoia, disorganization, other (roman catholic preoccupation) PTSD: denies Anxiety: situational anxiety, stressor related anxiety Anxiety/ 6 months or more of: restlessness, keyed up, difficulty concentrating, irritability, sleep disturbance Past Psychiatric History Previous Psychiatric Diagnosis: Longstanding history of schizophrenia and non compliance Previous Psychiatric Admissions: multiple to [facility] last in January 2018 Suicide Attempts: none known [facility] Psych[facility] medications: Abilify, Depakote, Cogentin, Zyprexa, Remeron, Zoloft, Invega sustenna (apparently doesn't hold her for an entire month and she has not been compliant ) Past Medical History Medical Problems hyperlipidemia, hypertension and metabolic derangements. Migraine headache COPD Surgeries: Yes (hernia repair, appendectomy) Family Medical/Psychiatric HX Medical Problems non known Psychiatric Disorders: No Addiction: denies Suicide Attemps/Completions: No Addiction History nicotine, alcohol and marijuana Social History Childhood: born and raised in [place], she has a younger bother who was her support for a long period of time but apparently her situation became too much for him to handle. According to previous records she was to an [employer] gentleman and he her. 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 Tearful because she is at the Hospital Speech: Has a deep voice, she is willing to communicate her thoughts but her speech is tangential and circumstantial Mood: anxious, very sad Mood depressed and anxious Affect: anxious, depressed Thought Process: disorgaizd, tangential and circumstantial Thought Content (Delusions): roman catholic preoccupation, paranoid thoughts, magical thinking Thought Content (Other): paranoid, roman catholic preoccupations Thought Content (Aggressive): none reported Perception (Hallucinations): none reported but she might be responding to internal stimuli Perception (Other): none reported Cognition (Impairment of): unable to assess (unable to assess) Cognition(Intelligence Est.): other Insight: poor Judgment: Poor Psychosis: Other (unable to assess) Diagnoses Paranoid Schizophrenia Cannabis use d/o Assement/Plan Assessment Patient is very pleasant and has a history of chronic schizophrenia. her mind is full of roman catholic preoccupations, of demons that want to harm her, paranoid thoughts about her neighbors. She, apparently did respond well to Invega Sustenna but she has not been compliant with her appointments, so, she has not received it all the time. She asked me if I thought her medications were really medications or they were poison. She needs to be stabilized and I spoke with her about having the Invega sustenna injection and she agreed to it. Once we obtain all the information we need from community clinic, regarding the strength and the last time she recived her Invega, we will be able to give her the medication. Initial Treatment Plan 1. Patient was admitted on a status. 2. Complete history was obtained. 3. With patients permission, family will be contacted and database will be expanded. 4. Patients medication regimen will be reviewed and changed accordingly. 5. Patient will be provided with protected environment. 6. Patient will be treated with individual, group, and milieu therapies. 7. Patient will receive supportive psych-education. 8. Discharge planning will commence immediately. 9. Outpatient follow-up treatment will be strongly recommended. 10. The initial treatment plan will focus initially on: * Depression. * Altered thoughts * altered perceptions * Substance abuse. ESTIMATED LENGTH OF STAY: 5-7 DAYS. TIME SPENT COUNSELING AND COORDINATING INITIAL CARE: 60 minutes. Vital Signs Vital Signs Date Time Temp Pulse Resp B/P (MAP) Pulse Ox O2 Delivery O2 Flow Rate FiO2 02/11/19 03:02 97.8 59 18 166/86 (112) 98 Medications Scheduled Benztropine Mesylate (Benztropine Mesylate) 1 Mg Tablet, 1 MG PO BID, (Reported) Divalproex Sodium (Divalproex Sodium) 500 Mg Tablet.dr, 500 MG PO BID, (Reported) Fluoxetine Hcl (Fluoxetine HCl) 20 Mg Capsule, 20 MG PO DAILY, (Reported) Furosemide (Furosemide) 20 Mg Tablet, 20 MG PO DAILY, (Reported) Olanzapine (Olanzapine) 5 Mg Tablet, 5 MG PO QAM, (Reported) Olanzapine (Olanzapine) 20 Mg Tablet, 20 MG PO QHS, (Reported) Paliperidone Palmitate (Invega Sustenna) 234 Mg/1.5 Ml Syringe, 234 MG IM QMONTH, (Reported) DUE February Sertraline HCl (Sertraline HCl) 100 Mg Tablet, 200 MG PO DAILY, (Reported) Allergies Coded Allergies: No Known Allergies (Verified , 10/30/03) DANA ROSALES MD February 11, 2019 11:45
[2019-02-11 18:01] VITALS: BP 95/55
[2019-02-11 22:24] VITALS: BP 136/74
[2019-02-12] MEDS: ACETAMINOPHEN TAB 650MG DOSE (2X325MG) PO PRN ×2 (06:25→20:27)
[2019-02-12 06:34] VITALS: BP 112/61
[2019-02-12] MEDS: LORATADINE 10 MG TAB PO SCH (08:14)
[2019-02-12] MEDS: OLANZapine 5 MG TAB PO SCH (08:14)
[2019-02-12 11:38] VITALS: BP 140/79
[2019-02-12] MEDS: BENZTROPINE 1 MG TAB PO SCH ×2 (11:40→20:26)
[2019-02-12] MEDS: SERTRALINE HCL 25 MG TABLET PO SCH (11:41)
[2019-02-12] MEDS: QUEtiapine FUMARATE 50 MG TAB PO SCH ×2 (15:39→20:27)
[2019-02-12] MEDS ORDERED: BENZONATATE 100 MG CAP PO PRN (17:00)
[2019-02-12 18:02] VITALS: BP 117/55
--- NOTE | 2019-02-12 21:02 | MHIPNPDOC ---
[facility] Progress Note Progress Note DATE OF SERVICE: 02/12/19 HISTORY: Pt was brought into the ED after calling 911, by [employer] PO Khris #96, per pt. Pt reports, "I am feeling depressed and sad, not suicidal," Pt presents with paranoid delusions, "people are messing with my Gatorade, and my medications, have not been taking them for over a week." Pt reports throwing her medications out one week ago, the voices are from a "Sabianism science man, he is telling me to masturbate, because he wants to see me do it." Pt states she is not sleeping well, and is a "finicky eater," presents tearfully, denies SI, and HI, drinks wine and smokes pot, sees a man that sneaks into her apartment and messes with her mind, doesn't like the medications at night, "the big one almost stops my heart." Pt's speech is tangential; she is soft spoken, tearful, good eye contact, disheveled, does not know her Y doctor's name she sees Terrie Kellogg as a therapist". Saw Samira today (02/11/19) and she says she called "the first aid instructor" because there's a man that has been harassing her. He is her neighbor, she says. then, she narra baltazar a confusing story, including the fact that her sheets have snake prints on them, she doesn't know if they flew in there, like witches. While she is telling me all of this, she is holding a bible close to her heart and tearfully, she says she didn't have bible at home because it could have protected from them. She wants to know if she has been receiving the right medications or if she has been poisoned. VITAL SIGNS: See below. NEW TEST RESULTS: See below CURRENT MEDICATIONS: See below. MENTAL STATUS EXAMINATION: Patient is a 68-year old female, who is alert, cooperative, dressed in hospital clothes. Speech: Is slurred, at times is very hard to comprehend, she can speak with very low volume at times. Tangential and circumstantial, disorganized Language skills are fair Thought processes including: tangential, circumstantial, disorganized. Thought content: focused on going home, paranoid thoughts about her neighbors wanting to harm her, magical thoughts, hindu preoccupations Abstract reasoning, and computation: limited Description of associations: loose. Description of abnormal or psychotic thoughts: she is paranoid, she has hindu preoccupations, she denies AV hallucinations but she might be responding to internal stimuli because she brought this morning a paperwhere she had been writing all the ideas she has about the devil, the angels, Iván, etc. Judgment: Poor Insight: Poor. Orientation: x2 (place and person). Recent and remote memory: limited. Attention span and concentration: good. Language: Paraguayan. Fund of knowledge: average. Mood: irritable, angry, sad. Affect: labile, sad, angry, irritable, anxious. DIAGNOSES: 1. Paranoid Schizophrenia 2. Marijuana use disorder. 3. Nicotine use disorder 4. Alcohol use disorder ASSESSMENT: The patient became irritable this afternoon because she is not allowed to smoke. This is a common presentation in her. She resents being at the Unit because she can't smoke. She has agreed to most of her medications. Will try to obtain info about the patient's [place], when was the last time she got it. MANAGEMENT PLAN: Will continue with current treatment plan TIME SPENT: 25 minutes. Vital Signs Vital Signs Date Time Temp Pulse Resp B/P (MAP) Pulse Ox O2 Delivery O2 Flow Rate FiO2 02/12/19 18:02 98.8 92 16 117/55 (75) 02/11/19 03:02 98 Current Medications Current Medications Acetaminophen (Tylenol Tab) 650 mg Q6HP PRN PO HEADACHE or DISCOMFORT Last administered on 02/12/19at 20:27; Start 02/10/19 at 19:15 Al Hydrox/Mg Hydrox/Simethicone (Mylanta) 30 ml Q4HP PRN PO HEARTBURN/INDIGESTION; Start 02/10/19 at 19:15 Benzonatate (Tessalon Perles) 200 mg Q4HP PRN PO COUGH; Start 02/12/19 at 17:00 Benztropine Mesylate (Cogentin) 1 mg BID PO Last administered on 02/12/19at 20:26; Start 02/12/19 at 09:00 Home Med (Med Rec Complete!) ASDIRECTED XX ; Start 02/10/19 at 12:00; Stop 02/10/19 at 12:02; Status DC Loratadine (Claritin) 10 mg DAILY PO Last administered on 02/12/19at 08:14; Start 02/11/19 at 13:00 Lorazepam (Ativan) 2 mg STAT STAT PO Last administered on 02/10/19at 15:12; Start 02/10/19 at 14:59; Stop 02/10/19 at 15:00; Status DC Magnesium Hydroxide (Milk Of Magnesia) 30 ml DAILYPRN PRN PO CONSTIPATION; Start 02/10/19 at 19:15 Olanzapine (ZyPREXA) 5 mg QAM PO Last administered on 02/12/19at 08:14; Start 02/11/19 at 09:00; Stop 02/12/19 at 10:35; Status DC Quetiapine Fumarate (SEROquel) 50 mg BID@0900,1600 PO ; Start 02/12/19 at 16:00 Quetiapine Fumarate (SEROquel) 75 mg QAM PO ; Start 02/13/19 at 09:00; Status UNV Quetiapine Fumarate (SEROquel) 150 mg QHS PO Last administered on 02/12/19at 20:27; Start 02/12/19 at 21:00 Sertraline HCl (Zoloft) 75 mg QAM PO Last administered on 02/12/19at 11:41; Start 02/12/19 at 09:00 Trazodone HCl (Desyrel) 50 mg QHSP PRN PO INSOMNIA; Start 02/10/19 at 19:15; Status Cancel Allergies Coded Allergies: No Known Allergies (Verified , 10/30/03) DANA ROSALES MD February 12, 2019 21:02
[2019-02-13 06:33] VITALS: BP 155/88
[2019-02-13 07:45] LABS: ALBUMIN 3.4 GM/DL (3.2-5.2); BILIRUBIN,TOTAL 0.3 MG/DL (0.2-1.0); CALCIUM LEVEL 9.3 MG/DL (8.8-10.2); CREATININE FOR GFR 1.02 MG/DL (0.55-1.30); GLOMERULAR FILTRATION RATE 57.4 (>45); POTASSIUM SERUM 4.9 MEQ/L (3.5-5.1); TOTAL PROTEIN 6.7 GM/DL (6.4-8.2)
[2019-02-13] MEDS ORDERED: QUEtiapine FUMARATE 25 MG TAB PO SCH (09:00)
[2019-02-13] MEDS: LORATADINE 10 MG TAB PO SCH ×2 (09:00→10:51)
[2019-02-13] MEDS: BENZTROPINE 1 MG TAB PO SCH ×2 (09:22→21:00)
[2019-02-13] MEDS: QUEtiapine FUMARATE 50 MG TAB PO SCH ×3 (09:22→21:00)
[2019-02-13] MEDS: SERTRALINE HCL 25 MG TABLET PO SCH (09:22)
[2019-02-13 17:54] VITALS: BP 132/85
[2019-02-13] MEDS ORDERED: PALIPERIDONE PALMITATE 234MG/1.5ML INJ (INVEGA)(J2426)(FREE PSY INPT ONLY) IM ONE (19:15)
--- NOTE | 2019-02-13 23:49 | MHIPNPDOC ---
[facility] Progress Note Progress Note DATE OF SERVICE: 02/13/19 HISTORY: Pt was brought into the ED after calling 911, by [employer] PO Khris #96, per pt. Pt reports, "I am feeling depressed and sad, not suicidal," Pt presents with paranoid delusions, "people are messing with my Gatorade, and my medications, have not been taking them for over a week." Pt reports throwing her medications out one week ago, the voices are from a "Restorationism science man, he is telling me to masturbate, because he wants to see me do it." Pt states she is not sleeping well, and is a "finicky eater," presents tearfully, denies SI, and HI, drinks wine and smokes pot, sees a man that sneaks into her apartment and messes with her mind, doesn't like the medications at night, "the big one almost stops my heart." Pt's speech is tangential; she is soft spoken, tearful, good eye contact, disheveled, does not know her Y doctor's name she sees Terrie Kellogg as a therapist". Saw Samira today (02/11/19) and she says she called "the non categorical preschool teacher" because there's a man that has been harassing her. He is her neighbor, she says. then, she narrates a confusing story, including the fact that her sheets have snake prints on them, she doesn't know if they flew in there, like witches. While she is telling me all of this, she is holding a bible close to her heart and tearfully, she says she didn't have bible at home because it could have protected from them. She wants to know if she has been receiving the right medications or if she has been poisoned. VITAL SIGNS: See below. NEW TEST RESULTS: See below CURRENT MEDICATIONS: See below. MENTAL STATUS EXAMINATION: Patient is a 68-year old female, who is alert, cooperative, dressed in personal clothes. Speech: Is slurred, at times is very hard to comprehend, she can speak with very low volume at times. Tangential and circumstantial, disorganized Language skills are fair Thought processes including: tangential, circumstantial, disorganized. Thought content: sad thoughts about a man that was in her life and left, she sti ll ahs some magical thinking and eligious preoccupations Abstract reasoning, and computation: limited Description of associations: loose. Description of abnormal or psychotic thoughts: she is less paranoid, she has uatsdin preoccupations but they are are less intense, less frequent today. She denies AV hallucinations but she might be responding to internal stimuli Judgment: Poor Insight: Poor. Orientation: x2 (place and person). Recent and remote memory: limited. Attention span and concentration: good. Language: Pashto. Fund of knowledge: average. Mood: anxious, happy, sad Affect: Congruent with mood DIAGNOSES: 1. Paranoid Schizophrenia 2. Marijuana use disorder. 3. Nicotine use disorder 4. Alcohol use disorder ASSESSMENT:The patient is doing better than on previous hospitalizations. She still has uatsdin preoccupations and presents with paranoia but she is less labile, less anxious, less tormented by these thoughts. She denies having visual hallucinations but says she had auditory hallucinations, although she was not seen responding to internal stimuli. She smiles more frequently, she tells me once again about this man who is her neighbor, who touches her and about the "little girl, Zaira that comes all th time to my apartment and tells me she used to live there". Her thoughts are slightly less disorganized. She accepted to receive the Invega Sustenna 234 mgs IM today. Last dose was on 01/18/19/ MANAGEMENT PLAN: As above TIME SPENT: 25 minutes. Vital Signs Vital Signs Date Time Temp Pulse Resp B/P (MAP) Pulse Ox O2 Delivery O2 Flow Rate FiO2 02/13/19 17:54 99.7 91 16 132/85 (101) 02/11/19 03:02 98 Laboratory Data 24H Labs Laboratory Tests 2 02/13/19 06:59: Anion Gap 4L, Glomerular Filtration Rate 57.4, Blood Urea Nitrogen 21H, Creatinine 1.02, Sodium Level 142, Potassium Level 4.9, Chloride Level 108H, Carbon Dioxide Level 30, Calcium Level 9.3, Aspartate Amino Transf (AST/SGOT) 15, Alanine Aminotransferase (ALT/SGPT) 18, Alkaline Phosphatase 108, Total Bilirubin 0.3, Total Protein 6.7, Albumin 3.4, Albumin/Globulin Ratio 1.03 CBC/BMP Laboratory Tests 02/13/19 06:59 Calcium Level 9.3, Aspartate Amino Transf (AST/SGOT) 15, Alanine Amino transferase (ALT/SGPT) 18, Alkaline Phosphatase 108, Total Bilirubin 0.3, Total Protein 6.7, Albumin 3.4 Current Medications Current Medications Acetaminophen (Tylenol Tab) 650 mg Q6HP PRN PO HEADACHE or DISCOMFORT Last administered on 02/12/19at 20:27; Start 02/10/19 at 19:15 Al Hydrox/Mg Hydrox/Simethicone (Mylanta) 30 ml Q4HP PRN PO HEARTBURN/INDIGES TION; Start 02/10/19 at 19:15 Benzonatate (Tessalon Perles) 200 mg Q4HP PRN PO COUGH; Start 02/12/19 at 17:00 Benztropine Mesylate (Cogentin) 1 mg BID PO Last administered on 02/13/19at 21:00; Start 02/12/19 at 09:00 Home Med (Med Rec Complete!) ASDIRECTED XX ; Start 02/10/19 at 12:00; Stop 02/10/19 at 12:02; Status DC Loratadine (Claritin) 10 mg DAILY PO Last administered on 02/13/19at 10:51; Start 02/11/19 at 13:00 Lorazepam (Ativan) 2 mg STAT STAT PO Last administered on 02/10/19at 15:12; Start 02/10/19 at 14:59; Stop 02/10/19 at 15:00; Status DC Magnesium Hydroxide (Milk Of Magnesia) 30 ml DAILYPRN PRN PO CONSTIPATION; Start 02/10/19 at 19:15 Olanzapine (ZyPREXA) 5 mg QAM PO Last administered on 02/12/19at 08:14; Start 02/11/19 at 09:00; Stop 02/12/19 at 10:35; Status DC Quetiapine Fumarate (SEROquel) 50 mg BID@0900,1600 PO Last administered on 02/13/19at 15:12; Start 02/12/19 at 16:00 Quetiapine Fumarate (SEROquel) 75 mg QAM PO ; Start 02/13/19 at 09:00; Status UNV Quetiapine Fumarate (SEROquel) 150 mg QHS PO Last administered on 02/13/19at 21:00; Start 5/30/19 at 21:00 Sertraline HCl (Zoloft) 75 mg QAM PO Last administered on 02/13/19at 09:22; Start 02/12/19 at 09:00 Trazodone HCl (Desyrel) 50 mg QHSP PRN PO INSOMNIA; Start 02/10/19 at 19:15; Status Cancel Allergies Coded Allergies: No Known Allergies (Verified , 10/30/03) DANA ROSALES MD February 13, 2019 23:49
[2019-02-14 06:47] VITALS: BP 116/70
[2019-02-14] MEDS: SERTRALINE HCL 25 MG TABLET PO SCH (08:56)
[2019-02-14] MEDS: QUEtiapine FUMARATE 50 MG TAB PO SCH ×3 (08:56→21:14)
[2019-02-14] MEDS: LORATADINE 10 MG TAB PO SCH (08:56)
[2019-02-14] MEDS: BENZTROPINE 1 MG TAB PO SCH ×2 (08:56→21:14)
[2019-02-14] MEDS: ACETAMINOPHEN TAB 650MG DOSE (2X325MG) PO PRN (11:52)
--- NOTE | 2019-02-14 16:11 | IPN ---
DATE: 02/14/2019 CHIEF COMPLAINT: Says feels okay. SUBJECTIVE: Seen for followup in the presence of staff. Says feels okay and that she has been sleeping well. Appetite has been good. MENTAL STATUS EXAMINATION: She is neat, cooperative. Speech is a bit rapid, but coherent for the most part, but at times a bit tangential. Affect fairly broad. No evidence of any thoughts of harming herself or anyone else at present. No overt delusions elicited at present. Judgment and insight remain poor. ASSESSMENT: 1. Schizophrenia. 2. Cannabis use disorder. PLAN: Continue current care, observations and participation and activities in the unit. She is to continue with the quetiapine, sertraline, Cogentin. She received Invega Sustenna yesterday at 234 mg intramuscular. VITAL SIGNS: Blood pressure 116/70, pulse 89, temperature 99.
[2019-02-14 18:17] VITALS: BP 116/74
[2019-02-15 06:38] VITALS: BP 106/71
[2019-02-15] MEDS: QUEtiapine FUMARATE 50 MG TAB PO SCH ×3 (08:44→20:42)
[2019-02-15] MEDS: BENZTROPINE 1 MG TAB PO SCH ×2 (08:44→20:40)
[2019-02-15] MEDS: LORATADINE 10 MG TAB PO SCH (08:44)
[2019-02-15] MEDS: SERTRALINE HCL 25 MG TABLET PO SCH (08:45)
[2019-02-15 18:04] VITALS: BP 124/60
[2019-02-16 06:59] VITALS: BP 104/70
[2019-02-16] MEDS: QUEtiapine FUMARATE 50 MG TAB PO SCH ×4 (08:03→21:23)
[2019-02-16] MEDS: LORATADINE 10 MG TAB PO SCH (08:03)
[2019-02-16] MEDS: BENZTROPINE 1 MG TAB PO SCH ×2 (08:03→21:23)
[2019-02-16] MEDS: SERTRALINE HCL 25 MG TABLET PO SCH (08:04)
[2019-02-16] MEDS: ACETAMINOPHEN TAB 650MG DOSE (2X325MG) PO PRN (09:48)
[2019-02-16 18:42] VITALS: BP 130/64
--- NOTE | 2019-02-16 20:40 | MHIPNPDOC ---
[facility] Progress Note Progress Note DATE OF SERVICE: 02/16/19 HISTORY: Pt was brought into the ED after calling 911, by [facility] #[id number], per pt. Pt reports, "I am feeling depressed and sad, not suicidal," Pt presents with paranoid delusions, "people are messing with my Gatorade, and my medications, have not been taking them for over a week." Pt reports throwing her medications out one week ago, the voices are from a "Episcopalian science man, he is telling me to masturbate, because he wants to see me do it." Pt states she is not sleeping well, and is a "finicky eater," presents tearfully, denies SI, and HI, drinks wine and smokes pot, sees a man that sneaks into her apartment and messes with her mind, doesn't like the medications at night, "the big one almost stops my heart." Pt's speech is tangential; she is soft spoken, tearful, good eye contact, disheveled, does not know her Y doctor's name she sees Terrie Kellogg as a therapist". Saw Samira today (02/11/19) and she says she called "the latin professor" because there's a man that has been harassing her. He is her neighbor, she says. then, she narrate s a confusing story, including the fact that her sheets have snake prints on them, she doesn't know if they flew in there, like witches. While she is telling me all of this, she is holding a bible close to her heart and tearfully, she says she didn't have bible at home because it could have protected from them. She wants to know if she has been receiving the right medications or if she has been poisoned. VITAL SIGNS: See below. NEW TEST RESULTS: See below CURRENT MEDICATIONS: See below. MENTAL STATUS EXAMINATION: Patient is a 68-year old female, who is alert, cooperative, dressed in personal clothes. Speech: Is slurred, at times is very hard to comprehend, she can speak with very low volume at times. Tangential and circumstantial, disorganized Language skills are fair Thought processes including: tangential, circumstantial, disorganized. Thought content: she still has magical thinking and sikh preoccupations although she seems to be less paranoid Abstract reasoning, and computation: limited Description of associations: loose. Description of abnormal or psychotic thoughts: she is less paranoid, she has sikh preoccupations but they are are less intense, less frequent today. She denies AV hallucinations but she might be responding to internal stimuli Judgment: Poor Insight: Poor. Orientation: x2 (place and person). Recent and remote memory: limited. Attention span and concentration: good. Language: Sierra Leonean. Fund of knowledge: average. Mood: anxious, happy, sad Affect: Congruent with mood DIAGNOSES: 1. Paranoid Schizophrenia 2. Marijuana use disorder. 3. Nicotine use disorder 4. Alcohol use disorder ASSESSMENT The patient had a good response to Invega Sustenna. No side effects were reported or observed. Her thoughts are still disorganized but she is less paranoid and she was not seen responding to internal stimuli, although she might. she still complains about her brother who has tried to tell her not to smoke, but at the same time she says she cares about him. She will continue taking the same medications. MANAGEMENT PLAN: As above TIME SPENT: 25 minutes. Vital Signs Vital Signs Date Time Temp Pulse Resp B/P (MAP) Pulse Ox O2 Delivery O2 Flow Rate FiO2 02/16/19 18:42 99.1 83 18 130/64 (86) 02/11/19 03:02 98 Current Medications Current Medications Acetaminophen (Tylenol Tab) 650 mg Q6HP PRN PO HEADACHE or DISCOMFORT Last administered on 02/16/19at 09:48; Start 02/10/19 at 19:15 Al Hydrox/Mg Hydrox/Simethicone (Mylanta) 30 ml Q4HP PRN PO HEARTBURN/INDIGESTION; Start 02/10/19 at 19:15 Benzonatate (Tessalon Perles) 200 mg Q4HP PRN PO COUGH; Start 02/12/19 at 17:00 Benztropine Mesylate (Cogentin) 1 mg BID PO Last administered on 02/16/19at 08:03; Start 02/12/19 at 09:00 Home Med (Med Rec Complete!) ASDIRECTED XX ; Start 02/10/19 at 12:00; Stop 02/10/19 at 12:02; Status DC Loratadine (Claritin) 10 mg DAILY PO Last administered on 6/3/19at 08:03; Start 02/11/19 at 13:00 Lorazepam (Ativan) 2 mg STAT STAT PO Last administered on 02/10/19 15:12; Start 02/10/19 at 14:59; Stop 02/10/19 at 15:00; Status DC Magnesium Hydroxide (Milk Of Magnesia) 30 ml DAILYPRN PRN PO CONSTIPATION; Start 02/10/19 at 19:15 Olanzapine (ZyPREXA) 5 mg QAM PO Last administered on 02/12/19 08:14; Start 02/11/19 at 09:00; Stop 02/12/19 at 10:35; Status DC Quetiapine Fumarate (SEROquel) 50 mg BID@0900,1600 PO Last administered on 02/16/19 17:22; Start 02/12/19 at 16:00 Quetiapine Fumarate (SEROquel) 75 mg QAM PO ; Start 02/13/19 at 09:00; Status UNV Quetiapine Fumarate (SEROquel) 150 mg QHS PO Last administered on 02/15/19at 20:42; Start 02/12/19 at 21:00 Sertraline HCl (Zoloft) 75 mg QAM PO Last administered on 02/16/19 08:04; Start 02/12/19 at 09:00 Trazodone HCl (Desyrel) 50 mg QHSP PRN PO INSOMNIA; Start 02/10/19 at 19:15; Status Cancel Allergies Coded Allergies: No Known Allergies (Verified , 10/30/03) DANA ROSALES MD Feb 16, 2019 20:40
[2019-02-17 06:40] VITALS: BP 131/73
[2019-02-17] MEDS: QUEtiapine FUMARATE 50 MG TAB PO SCH ×3 (08:52→20:56)
[2019-02-17] MEDS: ACETAMINOPHEN TAB 650MG DOSE (2X325MG) PO PRN (08:52)
[2019-02-17] MEDS: BENZTROPINE 1 MG TAB PO SCH ×2 (08:52→20:56)
[2019-02-17] MEDS: LORATADINE 10 MG TAB PO SCH (08:52)
[2019-02-17] MEDS: SERTRALINE HCL 25 MG TABLET PO SCH (08:53)
--- NOTE | 2019-02-17 17:01 | MHIPNPDOC ---
[facility] Progress Note Progress Note DATE OF SERVICE: 02/17/19 HISTORY: Pt was brought into the ED after calling 911, by [facility] PO [facility]ris #[id number], per pt. Pt reports, "I am feeling depressed and sad, not suicidal," Pt presents with paranoid delusions, "people are messing with my Gatorade, and my medications, have not been taking them for over a week." Pt reports throwing her medications out one week ago, the voices are from a "Moravian science man, he is telling me to masturbate, because he wants to see me do it." Pt states she is not sleeping well, and is a "finicky eater," presents tearfully, denies SI, and HI, drinks wine and smokes pot, sees a man that sneaks into her apartment and messes with her mind, doesn't like the medications at night, "the big one almost stops my heart." Pt's speech is tangential; she is soft spoken, tearful, good eye contact, disheveled, does not know her Y doctor's name she sees Terrie Kellogg as a therapist". Saw Samira today (02/11/19) and she says she called "the wind energy technician" because there's a man that has been harassing her. He is her neighbor, she says. then, she narrat es a confusing story, including the fact that her sheets have snake prints on them, she doesn't know if they flew in there, like witches. While she is telling me all of this, she is holding a bible close to her heart and tearfully, she says she didn't have bible at home because it could have protected from them. She wants to know if she has been receiving the right medications or if she has been poisoned. VITAL SIGNS: See below. NEW TEST RESULTS: See below CURRENT MEDICATIONS: See below. MENTAL STATUS EXAMINATION: Patient is a 68-year old female, who is alert, cooperative, dressed in personal clothes. Speech: Is slurred, at times is very hard to comprehend, she can speak with very low volume at times. Tangential and circumstantial, disorganized (less) Language skills are fair Thought processes including: tangential, circumstantial, disorganized. Thought content: she still has magical thinking and holiness preoccupations although she seems to be less paranoid Abstract reasoning, and computation: limited Description of associations: loose. Description of abnormal or psychotic thoughts: she is less paranoid, she has holiness preoccupations but they are are less intense, less frequent today. She denies AV hallucinations but she might be responding to internal stimuli Judgment: Poor Insight: Poor. Orientation: x2 (place and person). Recent and remote memory: limited. Attention span and concentration: good. Language: Saudi Arabian. Fund of knowledge: average. Mood: anxious, happy, sad Affect: Congruent with mood DIAGNOSES: 1. Paranoid Schizophrenia 2. Marijuana use disorder. 3. Nicotine use disorder 4. Alcohol use disorder ASSESSMENT The patient's mental status exam has not changed much from yesterday. she has been in a good mood, overall but she has periods when she becomes suspicious a little angry, she has not been a labile a she was during previous hospitalizations and her holiness preoccupations are less intense. she has had a good response to Invega Sustenna, no side effects have been noted. she will be discharged tomorrow and my [facility] for [facility] is to administer this medication every 3 weeks instead of every 4. MANAGEMENT PLAN: As above TIME SPENT: 25 minutes. Vital Signs Vital Signs Date Time Temp Pulse Resp B/P (MAP) Pulse Ox O2 Delivery O2 Flow Rate FiO2 02/17/19 06:40 97.5 69 14 131/73 (92) 02/11/19 03:02 98 Current Medications Current Medications Acetaminophen (Tylenol Tab) 650 mg Q6HP PRN PO HEADACHE or DISCOMFORT Last administered on 02/17/19at 08:52; Start 02/10/19 at 19:15 Al Hydrox/Mg Hydrox/Simethicone (Mylanta) 30 ml Q4HP PRN PO HEARTBURN/INDIGESTION; Start 02/10/19 at 19:15 Benzonatate (Tessalon Perles) 200 mg Q4HP PRN PO COUGH; Start 02/12/19 at 17:00 Benztropine Mesylate (Cogentin) 1 mg BID PO Last administered on 02/17/19at 08:52; Start 02/12/19 at 09:00 Home Med (Med Rec Complete!) ASDIRECTED XX ; Start 02/10/19 at 12:00; Stop 02/10/19 at 12:02; Status DC Loratadine (Claritin) 10 mg DAILY PO Last administered on 02/17/19 08:52; Start 02/11/19 at 13:00 Lorazepam (Ativan) 2 mg STAT STAT PO Last administered on 02/10/19at 15:12; Start 02/10/19 at 14:59; Stop 02/10/19 at 15:00; Status DC Magnesium Hydroxide (Milk Of Magnesia) 30 ml DAILYPRN PRN PO CONSTIPATION; Start 02/10/19 at 19:15 Olanzapine (ZyPREXA) 5 mg QAM PO Last administered on 02/12/19at 08:14; Start 02/11/19 at 09:00; Stop 02/12/19 at 10:35; Status DC Quetiapine Fumarate (SEROquel) 50 mg BID@0900,1600 PO Last administered on 02/17/19at 08:52; Start 02/12/19 at 16:00 Quetiapine Fumarate (SEROquel) 75 mg QAM PO ; Start 02/13/19 at 09:00; Status UNV Quetiapine Fumarate (SEROquel) 150 mg QHS PO Last administered on 02/16/19at 21:23; Start 02/12/19 at 21:00 Sertraline HCl (Zoloft) 75 mg QAM PO Last administered on 02/16/19at 08:04; Start 02/12/19 at 09:00 Trazodone HCl (Desyrel) 50 mg QHSP PRN PO INSOMNIA; Start 02/10/19 at 19:15; Status Cancel Allergies Coded Allergies: No Known Allergies (Verified , 10/30/03) DANA ROSALES MD Feb 17, 2019 17:01
[2019-02-17 18:44] VITALS: BP 151/76
[2019-02-17] MEDS: MAALOX 30 ML SUSP *UDC PO PRN (20:56)
[2019-02-18 06:37] VITALS: BP 150/83
[2019-02-18] MEDS: BENZTROPINE 1 MG TAB PO SCH ×2 (08:28→20:32)
[2019-02-18] MEDS: QUEtiapine FUMARATE 50 MG TAB PO SCH (08:28)
[2019-02-18] MEDS: SERTRALINE HCL 25 MG TABLET PO SCH (08:28)
[2019-02-18] MEDS: LORATADINE 10 MG TAB PO SCH (08:28)
[2019-02-18] MEDS: ACETAMINOPHEN TAB 650MG DOSE (2X325MG) PO PRN (11:10)
[2019-02-18] MEDS ORDERED: BENZ-52 PO (13:29)
[2019-02-18] MEDS ORDERED: QUET5TAB PO ×2 (13:29)
[2019-02-18] MEDS ORDERED: CLAR10TA7 PO (13:29)
[2019-02-18] MEDS ORDERED: INVE234I IM (13:29)
[2019-02-18] MEDS ORDERED: SERT25TA88 PO (13:29)
[2019-02-18] MEDS: SERTRALINE HCL 50 MG TAB PO SCH (15:51)
[2019-02-18] MEDS: QUEtiapine FUMARATE 100 MG TAB PO SCH (15:51)
--- NOTE | 2019-02-18 17:00 | MHIPNPDOC ---
[facility] Progress Note Progress Note DATE OF SERVICE: 02/18/19 HISTORY: Pt was brought into the ED after calling 911, by [facility] PO Khris #[id number], per pt. Pt reports, "I am feeling depressed and sad, not suicidal," Pt presents with paranoid delusions, "people are messing with my Gatorade, and my medications, have not been taking them for over a week." Pt reports throwing her medications out one week ago, the voices are from a "Church science man, he is telling me to masturbate, because he wants to see me do it." Pt states she is not sleeping well, and is a "finicky eater," presents tearfully, denies SI, and HI, drinks wine and smokes pot, sees a man that sneaks into her apartment and messes with her mind, doesn't like the medications at night, "the big one almost stops my heart." Pt's speech is tangential; she is soft spoken, tearful, good eye contact, disheveled, does not know her Y doctor's name she sees Terrie Kellogg as a therapist". Saw Samira today (02/11/19) and she says she called "the traffic line painter" because there's a man that has been harassing her. He is her neighbor, she says. then, she narrat es a confusing story, including the fact that her sheets have snake prints on them, she doesn't know if they flew in there, like witches. While she is telling me all of this, she is holding a bible close to her heart and tearfully, she says she didn't have bible at home because it could have protected from them. She wants to know if she has been receiving the right medications or if she has been poisoned. VITAL SIGNS: See below. NEW TEST RESULTS: See below CURRENT MEDICATIONS: See below. MENTAL STATUS EXAMINATION: Patient is a 68-year old female, who is alert, cooperative, dressed in personal clothes. Speech: Is slurred, at times is very hard to comprehend, she can speak with very low volume at times. Tangential and circumstantial, disorganized (less) Language skills are fair Thought processes including: tangential, circumstantial, disorganized. Thought content: she still has magical thinking and jehovah's witness preoccupations and this morning she reacted in a different way towards staff members, whom she thought were poisoning her. Abstract reasoning, and computation: limited Description of associations: loose. Description of abnormal or psychotic thoughts: She's very paranoid today, she thinks staff members want to poison her, she is irritable. She has jehovah's witness preoccupations and now, they are more intense and more frequent compared to how thy have been recently. She denies AV hallucinations but she might be responding to internal stimuli Judgment: Poor Insight: Poor. Orientation: x2 (place and person). Recent and remote memory: limited. Attention span and concentration: good. Language: Lao. Fund of knowledge: average. Mood: angry, anxious Affect: Congruent with mood DIAGNOSES: 1. Paranoid Schizophrenia 2. Marijuana use disorder. 3. Nicotine use disorder 4. Alcohol use disorder ASSESSMENT Patient's hospice case manager from [facility] came to see her and they indicated that patient is not at baseline yet. Staff from [facility] indicaed that she has been on Invega 234 mgs since november 25 and they have noticed that is not holding her for 4 weeks. she has not received the 156 mgs injection as [facility] worker believed. I hav increased the dose of Seroquel at night and during the day. she didn't want to take Zyprexa and for that reason I changed to Seroquel and because Seroquel can help with her depression too. I have increased Zoloft to 150 mgs Po daily. f she doesn't respond to this medication changes, I will re start her on Zyprexa. MANAGEMENT PLAN: As above TIME SPENT: 25 minutes. Vital Signs Vital Signs Date Time Temp Pulse Resp B/P (MAP) Pulse Ox O2 Delivery O2 Flow Rate FiO2 02/18/19 06:37 97.9 80 16 150/83 (105) Current Medications Current Medications Acetaminophen (Tylenol Tab) 650 mg Q6HP PRN PO HEADACHE or DISCOMFORT Last administered on 02/18/19at 11:10; Start 02/10/19 at 19:15 Al Hydrox/Mg Hydrox/Simethicone (Mylanta) 30 ml Q4HP PRN PO HEARTBURN/INDIGESTION Last administered on 02/17/19at 20:56; Start 02/10/19 at 19:15 Benzonatate (Tessalon Perles) 200 mg Q4HP PRN PO COUGH; Start 02/12/19 at 17:00 Benztropine Mesylate (Cogentin) 1 mg BID PO Last administered on 02/18/19at 08:28; Start 02/12/19 at 09:00 Home Med (Med Rec Complete!) ASDIRECTED XX ; Start 02/10/19 at 12:00; Stop 02/10/19 at 12:02; Status DC Loratadine (Claritin) 10 mg DAILY PO Last administered on 02/18/19at 08:28; Start 02/11/19 at 13:00 Lorazepam (Ativan) 2 mg STAT STAT PO Last administered on 02/10/19at 15:12; Start 02/10/19 at 14:59; Stop 02/10/19 at 15:00; Status DC Magnesium Hydroxide (Milk Of Magnesia) 30 ml DAILYPRN PRN PO CONSTIPATION; Start 02/10/19 at 19:15 Olanzapine (ZyPREXA) 5 mg QAM PO Last administered on 02/12/19at 08:14; Start 02/11/19 at 09:00; Stop 02/12/19 at 10:35; Status DC Quetiapine Fumarate (SEROquel) 50 mg BID@0900,1600 PO Last administered on 02/18/19at 08:28; Start 02/12/19 at 16:00; Stop 02/18/19 at 13:39; Status DC Quetiapine Fumarate (SEROquel) 75 mg QAM PO ; Start 02/13/19 at 09:00; Status UNV Quetiapine Fumarate (SEROquel) 100 mg BID@0900,1600 PO Last administered on 02/18/19at 15:51; Start 02/18/19 at 16:00 Quetiapine Fumarate (SEROquel) 150 mg QHS PO Last administered on 02/17/19at 20:56; Start 02/12/19 at 21:00; Stop 02/18/19 at 13:39; Status DC Quetiapine Fumarate (SEROquel) 400 mg QHS PO ; Start 02/18/19 at 21:00 Sertraline HCl (Zoloft) 75 mg QAM PO Last administered on 02/16/19at 08:04; Start 02/12/19 at 09:00; Stop 02/18/19 at 13:38; Status DC Sertraline HCl (Zoloft) 150 mg QAM PO Last administered on 02/18/19at 15:51; Start 02/18/19 at 09:00 Trazodone HCl (Desyrel) 50 mg QHSP PRN PO INSOMNIA; Start 02/10/19 at 19:15; Status Cancel Allergies Coded Allergies: No Known Allergies (Verified , 10/30/03) DANA ROSALES MD Feb 18, 2019 16:44
[2019-02-18 18:00] VITALS: BP 128/73
[2019-02-18] MEDS: QUEtiapine FUMARATE 200 MG TAB PO SCH (20:32)
[2019-02-18] MEDS ORDERED: QUEtiapine FUMARATE 200 MG TAB PO SCH (21:00)
[2019-02-19 06:46] VITALS: BP 130/70
[2019-02-19] MEDS: LORATADINE 10 MG TAB PO SCH (08:53)
[2019-02-19] MEDS: QUEtiapine FUMARATE 100 MG TAB PO SCH ×2 (08:53→15:06)
[2019-02-19] MEDS: SERTRALINE HCL 50 MG TAB PO SCH (08:53)
[2019-02-19] MEDS: BENZTROPINE 1 MG TAB PO SCH ×2 (08:53→21:10)
[2019-02-19] MEDS: MAALOX 30 ML SUSP *UDC PO PRN (15:06)
--- NOTE | 2019-02-19 15:44 | MHIPNPDOC ---
[facility] Progress Note Progress Note DATE OF SERVICE: 02/19/19 HISTORY: Pt was brought into the ED after calling 911, by [facility] PO Khris #[id number], per pt. Pt reports, "I am feeling depressed and sad, not suicidal," Pt presents wi th paranoid delusions, "people are messing with my Gatorade, and my medications, have not been taking them for over a week." Pt reports throwing her medications out one week ago, the voices are from a "Rastafarian science man, he is telling me to masturbate, because he wants to see me do it." Pt states she is not sleeping well, and is a "finicky eater," presents tearfully, denies SI, and HI, drinks wine and smokes pot, sees a man that sneaks into her apartment and messes with her mind, doesn't like the medications at night, "the big one almost stops my heart." Pt's speech is tangential; she is soft spoken, tearful, good eye contact, disheveled, does not know her Y doctor's name she sees Terrie Kellogg as a therapist". Today in talking with the patient, she was saying she had a pain in her right upper abdomen a few hours after eating breakfast. She says this pain came on suddenly went away after a few minutes. Patient is feeling better today. She does not believe her coffee has been poisoned and she is taking her medications today. She says she got the "best night's sleep of my entire life" last night. Patient was calm and pleasant VITAL SIGNS: See below. NEW TEST RESULTS: See below. CURRENT MEDICATIONS: See below. MENTAL STATUS EXAMINATION: Patient is a 68-year old female, who is alert, cooperative, dressed in hospital scrubs. Speech: Is slurred, at times is very hard to comprehend, she speaks quietly. Her speech is tangential and circumstantial. Language skills are fair. Thought processes including: Tangential, circumstantial, disorganized. Thought content: Magical thinking zoroastrian preoccupations. Less paranoia than previous days. Abstract reasoning, and computation: Limited. Description of associations: loose. Description of abnormal or psychotic thoughts: Less paranoia today than in previous days. She does not believe her coffee is been poisoned and she is taking her medications today. Judgment: Poor. Insight: Poor. Orientation: Place and person. Recent and remote memory: Limited. Attention span and concentration: Good. Language: Mauritanian. Fund of knowledge: Average. Mood: Anxious. Affect: Anxious. DIAGNOSES: 1. Paranoid schizophrenia. 2. Marijuana use disorder. 3. Nicotine use disorder. 4. Alcohol use disorder. ASSESSMENT: Patient's automation specialist from [facility] came to see her yesterday. They determined that the patient is not at her baseline yet. Staff from [facility] indicated that she has been on Invega at 234 mg since November 25 and they have noticed that is not holding her 4 weeks. She has not received the 156 mg injection as [facility] worker believed. Her dose of Seroquel was increased at night and during the day. She did not want to take Zyprexa which is why she was changed to Seroquel. Her Zoloft was increased to 150 mg daily. If she does not respond to these medication changes, she'll be restarted on Zyprexa. We will continue with the current treatment and reassess the patient tomorrow. MANAGEMENT PLAN: As above. TIME SPENT: 20 minutes. Vital Signs Vital Signs Date Time Temp Pulse Resp B/P (MAP) Pulse Ox O2 Delivery O2 Flow Rate FiO2 02/19/19 06:46 97.7 76 18 130/70 (90) Current Medications Current Medications Acetaminophen (Tylenol Tab) 650 mg Q6HP PRN PO HEADACHE or DISCOMFORT Last administered on 02/18/19at 11:10; Start 02/10/19 at 19:15 Al Hydrox/Mg Hydrox/Simethicone (Mylanta) 30 ml Q4HP PRN PO HEARTBURN/INDIGESTION Last administered on 02/19/19at 15:06; Start 02/10/19 at 19:15 Benzonatate (Tessalon Perles) 200 mg Q4HP PRN PO COUGH; Start 02/12/19 at 17:00 Benztropine Mesylate (Cogentin) 1 mg BID PO Last administered on 02/19/19at 08:53; Start 02/12/19 at 09:00 Home Med (Med Rec Complete!) ASDIRECTED XX ; Start 02/10/19 at 12:00; Stop 02/10/19 at 12:02; Status DC Loratadine (Claritin) 10 mg DAILY PO Last administered on 02/19/19 08:53; Start 02/11/19 at 13:00 Lorazepam (Ativan) 2 mg STAT STAT PO Last administered on 02/10/19at 15:12; Start 02/10/19 at 14:59; Stop 02/10/19 at 15:00; Status DC Magnesium Hydroxide (Milk Of Magnesia) 30 ml DAILYPRN PRN PO CONSTIPATION; Start 02/10/19 at 19:15 Olanzapine (ZyPREXA) 5 mg QAM PO Last administered on 02/12/19at 08:14; Start 02/11/19 at 09:00; Stop 02/12/19 at 10:35; Status DC Quetiapine Fumarate (SEROquel) 50 mg BID@0900,1600 PO Last administered on 02/18/19 08:28; Start 02/12/19 at 16:00; Stop 02/18/19 at 13:39; Status DC Quetiapine Fumarate (SEROquel) 75 mg QAM PO ; Start 02/13/19 at 09:00; Status UNV Quetiapine Fumarate (SEROquel) 100 mg BID@0900,1600 PO Last administered on 02/19/19 15:06; Start 02/18/19 at 16:00 Quetiapine Fumarate (SEROquel) 150 mg QHS PO Last administered on 02/17/19at 20:56; Start 02/12/19 at 21:00; Stop 02/18/19 at 13:39; Status DC Quetiapine Fumarate (SEROquel) 200 mg QHS PO Last administered on 02/18/19at 20:32; Start 02/18/19 at 21:00 Quetiapine Fumarate (SEROquel) 400 mg QHS PO ; Start 02/18/19 at 21:00; Stop 02/18/19 at 21:00; Status DC Sertraline HCl (Zoloft) 75 mg QAM PO Last administered on 02/16/19 08:04; Start 02/12/19 at 09:00; Stop 02/18/19 at 13:38; Status DC Sertraline HCl (Zoloft) 150 mg QAM PO Last administered on 02/19/19 08:53; Start 02/18/19 at 09:00 Trazodone HCl (Desyrel) 50 mg QHSP PRN PO INSOMNIA; Start 02/10/19 at 19:15; Status Cancel Allergies Coded Allergies: No Known Allergies (Verified , 10/30/03) GME ATTESTATION GME ATTESTATION My faculty preceptor for this patient encounter was physically present during the encounter and was fully available. All aspects of the patient interview, examination, medical decision making process, and medical care plan development were reviewed and approved by the faculty preceptor. The faculty preceptor is aware and concurs with the plan as stated in the body of this note and will attest to such by his/her cosignature. LOW MEDINA DO Feb 19, 2019 15:44
[2019-02-19 18:00] VITALS: BP 135/73
[2019-02-19] MEDS: QUEtiapine FUMARATE 200 MG TAB PO SCH (21:10)
[2019-02-19] MEDS: ACETAMINOPHEN TAB 650MG DOSE (2X325MG) PO PRN (23:14)
[2019-02-20 06:33] VITALS: BP 121/72
[2019-02-20] MEDS: BENZTROPINE 1 MG TAB PO SCH ×2 (08:18→20:27)
[2019-02-20] MEDS: LORATADINE 10 MG TAB PO SCH (08:18)
[2019-02-20] MEDS: SERTRALINE HCL 50 MG TAB PO SCH (08:18)
[2019-02-20] MEDS: QUEtiapine FUMARATE 100 MG TAB PO SCH ×2 (08:18→15:25)
[2019-02-20 18:04] VITALS: BP 108/73
[2019-02-20] MEDS: QUEtiapine FUMARATE 200 MG TAB PO SCH (21:19)
[2019-02-21 06:41] VITALS: BP 131/69
[2019-02-21] MEDS: SERTRALINE HCL 50 MG TAB PO SCH (08:07)
[2019-02-21] MEDS: LORATADINE 10 MG TAB PO SCH (08:07)
[2019-02-21] MEDS: BENZTROPINE 1 MG TAB PO SCH ×2 (08:07→20:35)
[2019-02-21] MEDS: QUEtiapine FUMARATE 100 MG TAB PO SCH ×2 (08:07→15:55)
[2019-02-21] MEDS: ACETAMINOPHEN TAB 650MG DOSE (2X325MG) PO PRN (08:08)
--- NOTE | 2019-02-21 14:47 | IPNPDOC ---
Text Note Date of Service The patient was seen on 02/21/19. NOTE Dr Hood has requested hospitalist to see patient regarding vaginal bleeding Case discussed, chart reviewed S:Patient is 68 yo who states yesterday was wiping vaginal area with a towel after washing and noticed a few "spots of blood". Last menstrual period 1956. states no pain and no spotting of blood on clothing (does not wear underpants or depends). patient states she does not know if she has had a hysterectomy. 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 unable to palpate the cervix or uterus. Medium speculum inserted with light source, vaginal mucosa and tissue dry/friable with scant bleeding anterior to vaginal opening. RECTAL EXAM: no external hemorrhoids Current Medications Acetaminophen (Tylenol Tab) 650 mg Q6HP PRN PO HEADACHE or DISCOMFORT Last administered on 02/21/19at 08:08; Start 02/10/19 at 19:15 Al Hydrox/Mg Hydrox/Simethicone (Mylanta) 30 ml Q4HP PRN PO HEARTBURN /INDIGESTION Last administered on 02/19/19at 15:06; Start 02/10/19 at 19:15 Benzonatate (Tessalon Perles) 200 mg Q4HP PRN PO COUGH; Start 02/12/19 at 17:00 Benztropine Mesylate (Cogentin) 1 mg BID PO Last administered on 02/21/19at 08:07; Start 02/12/19 at 09:00 Home Med (Med Rec Complete!) ASDIRECTED XX ; Start 02/10/19 at 12:00; Stop 02/10/19 at 12:02; Status DC Loratadine (Claritin) 10 mg DAILY PO Last administered on 02/21/19at 08:07; Start 02/11/19 at 13:00 Lorazepam (Ativan) 2 mg STAT STAT PO Last administered on 02/10/19at 15:12; Start 02/10/19 at 14:59; Stop 02/10/19 at 15:00; Status DC Magnesium Hydroxide (Milk Of Magnesia) 30 ml DAILYPRN PRN PO CONSTIPATION; Start 02/10/19 at 19:15 Olanzapine (ZyPREXA) 5 mg QAM PO Last administered on 02/12/19at 08:14; Start 02/11/19 at 09:00; Stop 02/12/19 at 10:35; Status DC Quetiapine Fumarate (SEROquel) 50 mg BID@0900,1600 PO Last administered on 02/18/19at 08:28; Start 02/12/19 at 16:00; Stop 02/18/19 at 13:39; Status DC Quetiapine Fumarate (SEROquel) 75 mg QAM PO ; Start 02/13/19 at 09:00; Status UNV Quetiapine Fumarate (SEROquel) 100 mg BID@0900,1600 PO Last administered on 02/21/19at 08:07; Start 02/18/19 at 16:00 Quetiapine Fumarate (SEROquel) 150 mg QHS PO Last administered on 02/17/19at 20:56; Start 02/12/19 at 21:00; Stop 02/18/19 at 13:39; Status DC Quetiapine Fumarate (SEROquel) 200 mg QHS PO Last administered on 02/20/19at 21:19; Start 02/18/19 at 21:00 Quetiapine Fumarate (SEROquel) 400 mg QHS PO ; Start 02/18/19 at 21:00; Stop 02/18/19 at 21:00; Status DC Sertraline HCl (Zoloft) 75 mg QAM PO Last administered on 02/16/19 08:04; Start 02/12/19 at 09:00; Stop 02/18/19 at 13:38; Status DC Sertraline HCl (Zoloft) 150 mg QAM PO Last administered on 02/21/19at 08:07; Start 02/18/19 at 09:00 Trazodone HCl (Desyrel) 50 mg QHSP PRN PO INSOMNIA; Start 02/10/19 at 19:15; Status Cancel A/P: Vaginal bleeding due to atrophic vaginitis PRN [place] gel if vaginal irritation, bleeding or itching advised not to use towels aggressively for cleaning will sign off and follow peripherally Thank you for allowing to participate in this patient's care. VS,Fishbone, I+O VS, Fishbone, I+O Vital Signs Date Time Temp Pulse Resp B/P (MAP) Pulse Ox O2 Delivery O2 Flow Rate FiO2 02/21/19 06:41 98.9 76 16 131/69 (89) Item Value Date Time Hemoglobin 13.0 g/dl 02/10/19 1119 Platelet Count 198 10^3/uL 02/10/19 1119 Sodium Level 142 MEQ/L 02/13/19 0659 Blood Urea Nitrogen 21 MG/DL H 02/13/19 0659 Creatinine 1.02 MG/DL 02/13/19 0659 Potassium Level 4.9 MEQ/L 02/13/19 0659 Aspartate Amino Transf (AST/SGOT) 15 U/L 02/13/19 0659 Alanine Aminotransferase (ALT/SGPT) 18 U/L 02/13/19 0659 Thyroid Stimulating Hormone (TSH) 0.710 uIU/ML 02/10/19 1119 KEYLA DUDLEY DO Feb 21, 2019 12:29
[2019-02-21 18:06] VITALS: BP 117/65
[2019-02-21] MEDS: QUEtiapine FUMARATE 200 MG TAB PO SCH (21:00)
[2019-02-22 06:48] VITALS: BP 122/78
[2019-02-22] MEDS: BENZTROPINE 1 MG TAB PO SCH ×2 (08:48→21:38)
[2019-02-22] MEDS: QUEtiapine FUMARATE 100 MG TAB PO SCH ×2 (08:48→15:40)
[2019-02-22] MEDS: LORATADINE 10 MG TAB PO SCH (08:49)
[2019-02-22] MEDS: SERTRALINE HCL 50 MG TAB PO SCH (08:49)
[2019-02-22 18:07] VITALS: BP 112/72
[2019-02-22] MEDS ORDERED: ONDANSETRON 4 MG ORAL DISINTEGRATING TAB (Q0162 PER 1MG) PO PRN (21:00)
[2019-02-22] MEDS: QUEtiapine FUMARATE 200 MG TAB PO SCH (21:38)
[2019-02-23 06:42] VITALS: BP 116/67
[2019-02-23] MEDS: LORATADINE 10 MG TAB PO SCH (08:37)
[2019-02-23] MEDS: SERTRALINE HCL 50 MG TAB PO SCH (08:37)
[2019-02-23] MEDS: BENZTROPINE 1 MG TAB PO SCH ×2 (08:37→20:38)
[2019-02-23] MEDS: ASPIRIN 81 MG ENTERIC TAB PO SCH (08:37)
[2019-02-23] MEDS: QUEtiapine FUMARATE 100 MG TAB PO SCH ×2 (09:00→16:00)
--- NOTE | 2019-02-23 16:11 | MHIPNPDOC ---
[facility] Progress Note Progress Note DATE OF SERVICE: 02/23/19 HISTORY: 68-year-old female, presently 2 PC with long history of schizophrenia without affective symptoms. Today, she met with her mobile team. She is still f lagrantly thought disordered VITAL SIGNS: See below. NEW TEST RESULTS: . CURRENT MEDICATIONS: See below. MENTAL STATUS EXAMINATION: Patient is a, 68-year old female, who is, suffering from long history of schizophrenia with repetitive admissions. Speech: Is scattered. Language skills are garbled. Thought processes including: Loose associations. Thought content:, Some word salad. Abstract reasoning, and computation: poor abstract reasoning. Description of associations: Loose. Description of abnormal or psychotic thoughts: Paranoid delusions and hallucinations. visual nature. Judgment: Poor. Insight:, Poor. Orientation:, Intact 3. Recent and remote memory:. Poor. Attention span and concentration: Poor. Language: As above. Fund of knowledge:. Hard to gauge. Mood:. Elevated. Affect: Congruent. DIAGNOSES: 1. Schizophrenia. 2., Rule out schizoaffective disorder. 3., Stressors of living. ASSESSMENT: As above MANAGEMENT PLAN:. Continue to treat observe and determine if placement is necessary. TIME SPENT: 35 minutes. Vital Signs Vital Signs Date Time Temp Pulse Resp B/P (MAP) Pulse Ox O2 Delivery O2 Flow Rate FiO2 02/23/19 06:42 97.4 64 14 116/67 (83) Current Medications Current Medications Acetaminophen (Tylenol Tab) 650 mg Q6HP PRN PO HEADACHE or DISCOMFORT Last administered on 02/21/19at 08:08; Start 02/10/19 at 19:15 Al Hydrox/Mg Hydrox/Simethicone (Mylanta) 30 ml Q4HP PRN PO HEARTBURN/INDIGESTION Last administered on 02/19/19at 15:06; Start 02/10/19 at 19:15 Aspirin (Ecotrin) 81 mg DAILY PO Last administered on 02/23/19at 08:37; Start 02/23/19 at 09:00 Benzonatate (Tessalon Perles) 200 mg Q4HP PRN PO COUGH; Start 02/12/19 at 17:00 Benztropine Mesylate (Cogentin) 1 mg BID PO Last administered on 02/23/19at 08:37; Start 02/12/19 at 09:00 Home Med (Med Rec Complete!) ASDIRECTED XX ; Start 02/10/19 at 12:00; Stop 02/10/19 at 12:02; Status DC Loratadine (Claritin) 10 mg DAILY PO Last administered on 02/23/19at 08:37; Start 02/11/19 at 13:00 Lorazepam (Ativan) 2 mg STAT STAT PO Last administered on 02/10/19at 15:12; Start 02/10/19 at 14:59; Stop 02/10/19 at 15:00; Status DC Magnesium Hydroxide (Milk Of Magnesia) 30 ml DAILYPRN PRN PO CONSTIPATION; Start 02/10/19 at 19:15 Olanzapine (ZyPREXA) 5 mg QAM PO Last administered on 02/12/19at 08:14; Start 02/11/19 at 09:00; Stop 02/12/19 at 10:35; Status DC Ondansetron HCl (Zofran Odt) 4 mg Q6HP PRN PO NAUSEA OR VOMITING; Start 02/22/19 at 21:00 Quetiapine Fumarate (SEROquel) 50 mg BID@0900,1600 PO Last administered on 02/18/19at 08:28; Start 02/12/19 at 16:00; Stop 02/18/19 at 13:39; Status DC Quetiapine Fumarate (SEROquel) 75 mg QAM PO ; Start 02/13/19 at 09:00; Status UNV Quetiapine Fumarate (SEROquel) 100 mg BID@0900,1600 PO Last administered on 02/22/19at 15:40; Start 02/18/19 at 16:00 Quetiapine Fumarate (SEROquel) 150 mg QHS PO Last administered on 02/17/19at 20:56; Start 02/12/19 at 21:00; Stop 02/18/19 at 13:39; Status DC Quetiapine Fumarate (SEROquel) 200 mg QHS PO Last administered on 02/22/19at 21:38; Start 02/18/19 at 21:00 Quetiapine Fumarate (SEROquel) 400 mg QHS PO ; Start 02/18/19 at 21:00; Stop 02/18/19 at 21:00; Status DC Sertraline HCl (Zoloft) 75 mg QAM PO Last administered on 02/16/19at 08:04; Start 02/12/19 at 09:00; Stop 02/18/19 at 13:38; Status DC Sertraline HCl (Zoloft) 150 mg QAM PO Last administered on 02/23/19at 08:37; Start 02/18/19 at 09:00 Trazodone HCl (Desyrel) 50 mg QHSP PRN PO INSOMNIA; Start 02/10/19 at 19:15; Status Cancel Allergies Coded Allergies: No Known Allergies (Verified , 10/30/03) MICHELLE APONTE MD Feb 23, 2019 16:11
[2019-02-23 18:00] VITALS: BP 118/73
--- NOTE | 2019-02-23 20:32 | NUR ---
Seen for confirmatory consult, see Certificate of Examination Physician
[2019-02-23] MEDS: QUEtiapine FUMARATE 200 MG TAB PO SCH (21:00)
[2019-02-24 06:33] VITALS: BP 122/75
[2019-02-24] MEDS: QUEtiapine FUMARATE 100 MG TAB PO SCH ×2 (08:02→10:05)
[2019-02-24] MEDS: SERTRALINE HCL 50 MG TAB PO SCH (08:03)
[2019-02-24] MEDS: LORATADINE 10 MG TAB PO SCH (08:03)
[2019-02-24] MEDS: ASPIRIN 81 MG ENTERIC TAB PO SCH (08:03)
[2019-02-24] MEDS: BENZTROPINE 1 MG TAB PO SCH ×2 (08:03→20:35)
--- NOTE | 2019-02-24 11:05 | MHIPNPDOC ---
[facility] Progress Note Progress Note DATE OF SERVICE: 02/24/19 HISTORY: 68-year-old female with numerous admissions suffering from chronic schizophrenia, complicated by noncompliance due to paranoid delusions and hallucinations. VITAL SIGNS: See below. NEW TEST RESULTS: None. CURRENT MEDICATIONS: See below. MENTAL STATUS EXAMINATION: Patient is a 68-year old female, who is, refusing her nighttime Seroquel. Speech: Is garbled. Language skills are garbled. Thought processes including: Rapid with loose associations. Thought content:, Paranoia. Abstract reasoning, and computation:, Poor. Description of associations: Loose associations and word salad. Description of abnormal or psychotic thoughts:, Paranoid, and related to poisoning as well as visual hallucinations. Judgment:. Poor. Insight: Poor. Orientation: Intact 3. Recent and remote memory:. Unable to measure. Attention span and concentration: Poor. Language: As above. Fund of knowledge:, Intact. Mood: Labile. Affect:, Labile. DIAGNOSES: 1. Schizophrenia, chronic. 2. Stressors of living situation. . ASSESSMENT: Patient most likely will have to return to long-term care MANAGEMENT PLAN:. I discontinued her nightly Seroquel. She seems to be taking it during the day. TIME SPENT:, 35 minutes. Vital Signs Vital Signs Date Time Temp Pulse Resp B/P (MAP) Pulse Ox O2 Delivery O2 Flow Rate FiO2 02/24/19 06:33 98.0 92 14 122/75 (91) Current Medications Current Medications Acetaminophen (Tylenol Tab) 650 mg Q6HP PRN PO HEADACHE or DISCOMFORT Last administered on 02/21/19at 08:08; Start 02/10/19 at 19:15 Al Hydrox/Mg Hydrox/Simethicone (Mylanta) 30 ml Q4HP PRN PO HEARTBURN/INDIGESTION Last administered on 02/19/19at 15:06; Start 02/10/19 at 19:15 Aspirin (Ecotrin) 81 mg DAILY PO Last administered on 02/24/19at 08:03; Start 02/23/19 at 09:00 Benzonatate (Tessalon Perles) 200 mg Q4HP PRN PO COUGH; Start 02/12/19 at 17:00 Benztropine Mesylate (Cogentin) 1 mg BID PO Last administered on 02/24/19at 08:03; Start 02/12/19 at 09:00 Home Med (Med Rec Complete!) ASDIRECTED XX ; Start 02/10/19 at 12:00; Stop 02/10/19 at 12:02; Status DC Loratadine (Claritin) 10 mg DAILY PO Last administered on 02/24/19at 08:03; Start 02/11/19 at 13:00 Lorazepam (Ativan) 2 mg STAT STAT PO Last administered on 02/10/19at 15:12; Start 02/10/19 at 14:59; Stop 02/10/19 at 15:00; Status DC Magnesium Hydroxide (Milk Of Magnesia) 30 ml DAILYPRN PRN PO CONSTIPATION; Start 02/10/19 at 19:15 Non-Formulary Medication ( See Comment Field Below ) SEE COMMENTS SECTION 1T@10 XX ; Start 02/26/19 at 10:00; Stop 02/27/19 at 09:59; Status UNV Olanzapine (ZyPREXA) 5 mg QAM PO Last administered on 02/12/19at 08:14; Start 02/11/19 at 09:00; Stop 02/12/19 at 10:35; Status DC Ondansetron HCl (Zofran Odt) 4 mg Q6HP PRN PO NAUSEA OR VOMITING; Start 02/22/19 at 21:00 Quetiapine Fumarate (SEROquel) 50 mg BID@0900,1600 PO Last administered on 02/18/19at 08:28; Start 02/12/19 at 16:00; Stop 02/18/19 at 13:39; Status DC Quetiapine Fumarate (SEROquel) 75 mg QAM PO ; Start 02/13/19 at 09:00; Status UNV Quetiapine Fumarate (SEROquel) 100 mg BID@0900,1600 PO Last administered on 02/24/19at 10:05; Start 02/18/19 at 16:00 Quetiapine Fumarate (SEROquel) 150 mg QHS PO Last administered on 02/17/19at 20:56; Start 02/12/19 at 21:00; Stop 02/18/19 at 13:39; Status DC Quetiapine Fumarate (SEROquel) 200 mg QHS PO Last administered on 02/22/19at 21:38; Start 02/18/19 at 21:00 Quetiapine Fumarate (SEROquel) 400 mg QHS PO ; Start 02/18/19 at 21:00; Stop 02/18/19 at 21:00; Status DC Sertraline HCl (Zoloft) 75 mg QAM PO Last administered on 02/16/19at 08:04; Start 02/12/19 at 09:00; Stop 02/18/19 at 13:38; Status DC Sertraline HCl (Zoloft) 150 mg QAM PO Last administered on 02/24/19at 08:03; Start 02/18/19 at 09:00 Trazodone HCl (Desyrel) 50 mg QHSP PRN PO INSOMNIA; Start 02/10/19 at 19:15; Status Cancel Allergies Coded Allergies: No Known Allergies (Verified , 10/30/03) MICHELLE APONTE MD Feb 24, 2019 11:05
[2019-02-24] MEDS ORDERED: TUBERCULIN PPD 5 UNITS/0.1 ML ID ONE ×2 (11:30)
[2019-02-24] MEDS: QUEtiapine FUMARATE 200 MG TAB PO SCH (15:43)
[2019-02-24 18:00] VITALS: BP 129/80
[2019-02-25 06:40] VITALS: BP 120/73
[2019-02-25] MEDS: ASPIRIN 81 MG ENTERIC TAB PO SCH (08:28)
[2019-02-25] MEDS: SERTRALINE HCL 50 MG TAB PO SCH (08:28)
[2019-02-25] MEDS: BENZTROPINE 1 MG TAB PO SCH ×2 (08:28→21:03)
[2019-02-25] MEDS: QUEtiapine FUMARATE 200 MG TAB PO SCH (08:28)
[2019-02-25] MEDS: LORATADINE 10 MG TAB PO SCH (08:28)
--- NOTE | 2019-02-25 09:21 | MHIPNPDOC ---
[facility] Progress Note Progress Note DATE OF SERVICE: 02/25/19 HISTORY: 68-year-old female with chronic mental illness who has been on an intramuscular medication, but who has required frequent admissions. She is agitated and stating that she is not schizophrenic, but is bipolar. She is extremely anxious and continues to be thought disordered with paranoid delusions and hallucinations. VITAL SIGNS: See below. NEW TEST RESULTS: . CURRENT MEDICATIONS: See below. MENTAL STATUS EXAMINATION: Patient is a 68-year old female, who is, anxious and agitated. Speech: Is garbled and rapid. Language skills are as above. Thought processes including:. Anxiety paranoid delusions and hallucinations. Thought content:, Visual hallucinations and thoughts of poisoning. Abstract reasoning, and computation:, Poor. Description of associations: Loose. Description of abnormal or psychotic thoughts: As above. Judgment:, Poor. Insight:, Poor. Orientation:. Oriented 3. Recent and remote memory:. Hard to measure. Attention span and concentration: Poor. Attention span. Language: As above. Fund of knowledge:, Difficult to measure. Mood: Labile. Affect:, Labile. DIAGNOSES: 1., Schizoaffective disorder. 2., Stressors of living situation. 3., Anxiety. ASSESSMENT:. Apparently long-term treatment may again be considered. MANAGEMENT PLAN: Patient did not want nighttime Seroquel and it was discontinued whereas daytime Seroquel was continued and increased. TIME SPENT: 35 minutes. Vital Signs Vital Signs Date Time Temp Pulse Resp B/P (MAP) Pulse Ox O2 Delivery O2 Flow Rate FiO2 02/25/19 06:40 97.6 80 16 120/73 (89) Current Medications Current Medications Acetaminophen (Tylenol Tab) 650 mg Q6HP PRN PO HEADACHE or DISCOMFORT Last administered on 02/21/19at 08:08; Start 02/10/19 at 19:15 Al Hydrox/Mg Hydrox/Simethicone (Mylanta) 30 ml Q4HP PRN PO HEARTBURN/INDIGESTION Last administered on 02/19/19at 15:06; Start 02/10/19 at 19:15 Aspirin (Ecotrin) 81 mg DAILY PO Last administered on 02/25/19at 08:28; Start 02/23/19 at 09:00 Benzonatate (Tessalon Perles) 200 mg Q4HP PRN PO COUGH; Start 02/12/19 at 17:00 Benztropine Mesylate (Cogentin) 1 mg BID PO Last administered on 02/25/19at 08:28; Start 02/12/19 at 09:00 Home Med (Med Rec Complete!) ASDIRECTED XX ; Start 02/10/19 at 12:00; Stop 02/10/19 at 12:02; Status DC Loratadine (Claritin) 10 mg DAILY PO Last administered on 02/25/19at 08:28; Start 02/11/19 at 13:00 Lorazepam (Ativan) 2 mg STAT STAT PO Last administered on 02/10/19at 15:12; Start 02/10/19 at 14:59; Stop 02/10/19 at 15:00; Status DC Magnesium Hydroxide (Milk Of Magnesia) 30 ml DAILYPRN PRN PO CONSTIPATION; Start 02/10/19 at 19:15 Non-Formulary Medication ( See Comment Field Below ) SEE COMMENTS SECTION 1T@10 XX ; Start 02/26/19 at 10:00; Stop 02/26/19 at 10:00; Status DC Olanzapine (ZyPREXA) 5 mg QAM PO Last administered on 02/12/19at 08:14; Start 02/11/19 at 09:00; Stop 02/12/19 at 10:35; Status DC Ondansetron HCl (Zofran Odt) 4 mg Q6HP PRN PO NAUSEA OR VOMITING; Start 02/22/19 at 21:00 Quetiapine Fumarate (SEROquel) 50 mg BID@0900,1600 PO Last administered on 02/18/19at 08:28; Start 02/12/19 at 16:00; Stop 02/18/19 at 13:39; Status DC Quetiapine Fumarate (SEROquel) 75 mg QAM PO ; Start 02/13/19 at 09:00; Status UNV Quetiapine Fumarate (SEROquel) 100 mg BID@0900,1600 PO Last administered on 02/24/19at 10:05; Start 02/18/19 at 16:00; Stop 02/24/19 at 10:53; Status DC Quetiapine Fumarate (SEROquel) 150 mg QHS PO Last administered on 02/17/19at 20:56; Start 02/12/19 at 21:00; Stop 02/18/19 at 13:39; Status DC Quetiapine Fumarate (SEROquel) 200 mg BID@0900,1600 PO Last administered on 02/25/19at 08:28; Start 02/24/19 at 16:00 Quetiapine Fumarate (SEROquel) 200 mg QHS PO Last administered on 02/22/19at 21:38; Start 02/18/19 at 21:00; Stop 02/24/19 at 10:53; Status DC Quetiapine Fumarate (SEROquel) 400 mg QHS PO ; Start 02/18/19 at 21:00; Stop 02/18/19 at 21:00; Status DC Sertraline HCl (Zoloft) 75 mg QAM PO Last administered on 02/16/19 08:04; Start 02/12/19 at 09:00; Stop 02/18/19 at 13:38; Status DC Sertraline HCl (Zoloft) 150 mg QAM PO Last administered on 02/25/19 08:28; Start 02/18/19 at 09:00 Trazodone HCl (Desyrel) 50 mg QHSP PRN PO INSOMNIA; Start 02/10/19 at 19:15; Status Cancel Allergies Coded Allergies: No Known Allergies (Verified , 10/30/03) MICHELLE APONTE MD Feb 25, 2019 09:20
[2019-02-25] MEDS: QUEtiapine FUMARATE 100 MG TAB PO SCH (15:52)
[2019-02-25 18:00] VITALS: BP 136/71
[2019-02-26 07:00] VITALS: BP 106/62
[2019-02-26] MEDS: SERTRALINE HCL 50 MG TAB PO SCH (08:46)
[2019-02-26] MEDS: ASPIRIN 81 MG ENTERIC TAB PO SCH (08:46)
[2019-02-26] MEDS: QUEtiapine FUMARATE 100 MG TAB PO SCH (08:46)
[2019-02-26] MEDS: LORATADINE 10 MG TAB PO SCH (08:46)
[2019-02-26] MEDS ORDERED: PPD DOCUMENTATION ENTRY MISC XX SCH (10:00)
[2019-02-26] MEDS ORDERED: PPD DOCUMENTATION ENTRY MISC XX ONE (11:30)
--- NOTE | 2019-02-26 11:30 | MHIPNPDOC ---
[facility] Progress Note Progress Note DATE OF SERVICE: 02/26/19 HISTORY: 68-year-old female with repetitive admissions long history of schizoaffective disorder. VITAL SIGNS: See below. NEW TEST RESULTS: . CURRENT MEDICATIONS: See below. MENTAL STATUS EXAMINATION: Patient is a 68-year old female, who is being plan to go to long-term with thought disorder, rapid speech, hallucinations and delusions. Speech: Is garbled. Language skills are, Limited. Thought processes including: Include psychotic symptomatology of hallucinations and delusions. Thought content: Variable. Abstract reasoning, and computation: Minimal. Description of associations: Loose associations. Description of abnormal or psychotic thoughts: Hallucinations and delusions of being poisoned and visual hallucinations. Judgment:. Poor. Insight: Poor. Orientation:. Oriented 3. Recent and remote memory:, Intact. As far as can be determined. Attention span and concentration:, Poor. Language:, As above. Fund of knowledge:, Full. Mood:, Labile. Affect: And variable. DIAGNOSES: 1. Schizoaffective disorder. 2., Substance use. 3., Noncompliance. ASSESSMENT: 68-year-old due to repetitive admissions, noncompliance, drug use will be sent to long-term care MANAGEMENT PLAN: As above. TIME SPENT:, 35 minutes. Vital Signs Vital Signs Date Time Temp Pulse Resp B/P (MAP) Pulse Ox O2 Delivery O2 Flow Rate FiO2 02/26/19 07:00 98.7 68 16 106/62 (77) Current Medications Current Medications Acetaminophen (Tylenol Tab) 650 mg Q6HP PRN PO HEADACHE or DISCOMFORT Last administered on 02/21/19at 08:08; Start 02/10/19 at 19:15 Al Hydrox/Mg Hydrox/Simethicone (Mylanta) 30 ml Q4HP PRN PO HEARTBUR N/INDIGESTION Last administered on 02/19/19at 15:06; Start 02/10/19 at 19:15 Aspirin (Ecotrin) 81 mg DAILY PO Last administered on 02/26/19at 08:46; Start 02/23/19 at 09:00 Benzonatate (Tessalon Perles) 200 mg Q4HP PRN PO COUGH; Start 02/12/19 at 17:00 Benztropine Mesylate (Cogentin) 1 mg BID PO Last administered on 02/25/19at 21:03; Start 02/12/19 at 09:00; Stop 02/26/19 at 07:54; Status DC Home Med (Med Rec Complete!) ASDIRECTED XX ; Start 02/10/19 at 12:00; Stop 02/10/19 at 12:02; Status DC Loratadine (Claritin) 10 mg DAILY PO Last administered on 02/26/19at 08:46; Start 02/11/19 at 13:00 Lorazepam (Ativan) 2 mg STAT STAT PO Last administered on 02/10/19at 15:12; Start 02/10/19 at 14:59; Stop 02/10/19 at 15:00; Status DC Magnesium Hydroxide (Milk Of Magnesia) 30 ml DAILYPRN PRN PO CONSTIPATION; Start 02/10/19 at 19:15 Non-Formulary Medication ( See Comment Field Below ) SEE COMMENTS SECTION 1T@10 XX ; Start 02/26/19 at 10:00; Stop 02/26/19 at 10:00; Status DC Olanzapine (ZyPREXA) 5 mg QAM PO Last administered on 02/12/19at 08:14; Start 02/11/19 at 09:00; Stop 02/12/19 at 10:35; Status DC Ondansetron HCl (Zofran Odt) 4 mg Q6HP PRN PO NAUSEA OR VOMITING; Start 02/22/19 at 21:00 Quetiapine Fumarate (SEROquel) 50 mg BID@0900,1600 PO Last administered on 02/18/19at 08:28; Start 02/12/19 at 16:00; Stop 02/18/19 at 13:39; Status DC Quetiapine Fumarate (SEROquel) 75 mg QAM PO ; Start 02/13/19 at 09:00; Status UNV Quetiapine Fumarate (SEROquel) 100 mg BID@0900,1600 PO Last administered on 02/24/19at 10:05; Start 02/18/19 at 16:00; Stop 02/24/19 at 10:53; Status DC Quetiapine Fumarate (SEROquel) 150 mg QHS PO Last administered on 02/17/19at 20:56; Start 02/12/19 at 21:00; Stop 02/18/19 at 13:39; Status DC Quetiapine Fumarate (SEROquel) 200 mg BID@0900,1600 PO Last administered on 02/25/19at 08:28; Start 02/24/19 at 16:00; Stop 02/25/19 at 09:14; Status DC Quetiapine Fumarate (SEROquel) 200 mg QHS PO Last administered on 02/22/19at 21:38; Start 02/18/19 at 21:00; Stop 02/24/19 at 10:53; Status DC Quetiapine Fumarate (SEROquel) 300 mg BID@0900,1600 PO Last administered on 02/26/19at 08:46; Start 02/25/19 at 16:00 Quetiapine Fumarate (SEROquel) 400 mg QHS PO ; Start 02/18/19 at 21:00; Stop 02/18/19 at 21:00; Status DC Sertraline HCl (Zoloft) 75 mg QAM PO Last administered on 02/16/19at 08:04; Start 02/12/19 at 09:00; Stop 02/18/19 at 13:38; Status DC Sertraline HCl (Zoloft) 150 mg QAM PO Last administered on 02/26/19at 08:46; Start 02/18/19 at 09:00 Trazodone HCl (Desyrel) 50 mg QHSP PRN PO INSOMNIA; Start 02/10/19 at 19:15; Status Cancel Allergies Coded Allergies: No Known Allergies (Verified , 10/30/03) MICHELLE APONTE MD Feb 26, 2019 11:30
[2019-02-26] MEDS: QUEtiapine FUMARATE 200 MG TAB PO SCH ×2 (15:55→20:19)
[2019-02-26 18:00] VITALS: BP 129/73
[2019-02-27 07:00] VITALS: BP 143/79
[2019-02-27] MEDS: SERTRALINE HCL 50 MG TAB PO SCH (08:10)
[2019-02-27] MEDS: QUEtiapine FUMARATE 200 MG TAB PO SCH ×3 (08:10→21:11)
[2019-02-27] MEDS: ASPIRIN 81 MG ENTERIC TAB PO SCH (08:10)
[2019-02-27] MEDS: LORATADINE 10 MG TAB PO SCH (08:10)
--- NOTE | 2019-02-27 09:22 | MHIPNPDOC ---
[facility] Progress Note Progress Note DATE OF SERVICE: 02/27/19 HISTORY: Repetitive admissions for schizophrenia and noncompliance with medications. This admission. Patient thought her food and medications were poisoned. VITAL SIGNS: See below. NEW TEST RESULTS: None. CURRENT MEDICATIONS: See below. MENTAL STATUS EXAMINATION: Patient is a 68 year old female, who is being treated for schizophrenia/schizoaffective disorder. Speech: Is, less garbled but continues rapid with some persecutory ideation Language skills are, intact. Thought processes including:, Paranoia and loose association and tangential. Thought disorder. Thought content:. As above. Abstract reasoning, and computation:, Poor. Abstraction. Description of associations: Loose associations. Description of abnormal or psychotic thoughts:, Inappropriately mood elevated at times with paranoia and persecution feelings. Judgment: Poor. Insight:, Poor. Orientation: Intact 3. Recent and remote memory:. Thought disordered with memory distortion. Attention span and concentration: Poor. Language: As above. Fund of knowledge:. Hard to measure. Mood: Labile. Affect:, Labile. DIAGNOSES: 1. Schizophrenia/schizoaffective disorder. 2. Stressors of living situation. 3., Noncompliant with medication ASSESSMENT: MANAGEMENT PLAN:. Patient was scheduled for long-term treatment. TIME SPENT: 35 minutes. Vital Signs Vital Signs Date Time Temp Pulse Resp B/P (MAP) Pulse Ox O2 Delivery O2 Flow Rate FiO2 02/27/19 07:00 97.4 54 12 143/79 (100) Current Medications Current Medications Acetaminophen (Tylenol Tab) 650 mg Q6HP PRN PO HEADACHE or DISCOMFORT Last administered on 02/21/19at 08:08; Start 02/10/19 at 19:15 Al Hydrox/Mg Hydrox/Simethicone (Mylanta) 30 ml Q4HP PRN PO HEARTBURN/INDIGESTION Last administered on 02/19/19at 15:06; Start 02/10/19 at 19:15 Aspirin (Ecotrin) 81 mg DAILY PO Last administered on 02/27/19at 08:10; Start 02/23/19 at 09:00 Benzonatate (Tessalon Perles) 200 mg Q4HP PRN PO COUGH; Start 02/12/19 at 17:00 Benztropine Mesylate (Cogentin) 1 mg BID PO Last administered on 02/25/19at 21:03; Start 02/12/19 at 09:00; Stop 02/26/19 at 07:54; Status DC Home Med (Med Rec Complete!) ASDIRECTED XX ; Start 02/10/19 at 12:00; Stop 02/10/19 at 12:02; Status DC Loratadine (Claritin) 10 mg DAILY PO Last administered on 02/27/19at 08:10; Start 02/11/19 at 13:00 Lorazepam (Ativan) 2 mg STAT STAT PO Last administered on 02/10/19at 15:12; S tart 02/10/19 at 14:59; Stop 02/10/19 at 15:00; Status DC Magnesium Hydroxide (Milk Of Magnesia) 30 ml DAILYPRN PRN PO CONSTIPATION; Start 02/10/19 at 19:15 Non-Formulary Medication ( See Comment Field Below ) SEE COMMENTS SECTION 1T@10 XX ; Start 02/26/19 at 10:00; Stop 02/26/19 at 10:00; Status DC Olanzapine (ZyPREXA) 5 mg QAM PO Last administered on 02/12/19at 08:14; Start 02/11/19 at 09:00; Stop 02/12/19 at 10:35; Status DC Ondansetron HCl (Zofran Odt) 4 mg Q6HP PRN PO NAUSEA OR VOMITING; Start 02/22/19 at 21:00 Quetiapine Fumarate (SEROquel) 50 mg BID@0900,1600 PO Last administered on 02/18/19at 08:28; Start 02/12/19 at 16:00; Stop 02/18/19 at 13:39; Status DC Quetiapine Fumarate (SEROquel) 75 mg QAM PO ; Start 02/13/19 at 09:00; Status UNV Quetiapine Fumarate (SEROquel) 100 mg BID@0900,1600 PO Last administered on 02/24/19at 10:05; Start 02/18/19 at 16:00; Stop 02/24/19 at 10:53; Status DC Quetiapine Fumarate (SEROquel) 150 mg QHS PO Last administered on 02/17/19at 20:56; Start 02/12/19 at 21:00; Stop 02/18/19 at 13:39; Status DC Quetiapine Fumarate (SEROquel) 200 mg BID@0900,1600 PO Last administered on 02/25/19at 08:28; Start 02/24/19 at 16:00; Stop 02/25/19 at 09:14; Status DC Quetiapine Fumarate (SEROquel) 200 mg QHS PO Last administered on 02/22/19at 21:38; Start 02/18/19 at 21:00; Stop 02/24/19 at 10:53; Status DC Quetiapine Fumarate (SEROquel) 200 mg TID PO Last administered on 02/27/19at 08:10; Start 02/26/19 at 16:00 Quetiapine Fumarate (SEROquel) 300 mg BID@0900,1600 PO Last administered on 02/26/19at 08:46; Start 02/25/19 at 16:00; Stop 02/26/19 at 14:17; Status DC Quetiapine Fumarate (SEROquel) 400 mg QHS PO ; Start 02/18/19 at 21:00; Stop 02/18/19 at 21:00; Status DC Sertraline HCl (Zoloft) 75 mg QAM PO Last administered on 02/16/19 08:04; Start 02/12/19 at 09:00; Stop 02/18/19 at 13:38; Status DC Sertraline HCl (Zoloft) 150 mg QAM PO Last administered on 02/27/19at 08:10; Start 02/18/19 at 09:00 Trazodone HCl (Desyrel) 50 mg QHSP PRN PO INSOMNIA; Start 02/10/19 at 19:15; Status Cancel Allergies Coded Allergies: No Known Allergies (Verified , 10/30/03) MICHELLE APONTE MD Feb 27, 2019 09:22
[2019-02-27] MEDS: ACETAMINOPHEN TAB 650MG DOSE (2X325MG) PO PRN (16:50)
[2019-02-27 18:40] VITALS: BP 135/75
[2019-02-28 06:52] VITALS: BP 137/85
[2019-02-28] MEDS: LORATADINE 10 MG TAB PO SCH (08:23)
[2019-02-28] MEDS: QUEtiapine FUMARATE 200 MG TAB PO SCH ×3 (08:23→21:00)
[2019-02-28] MEDS: ASPIRIN 81 MG ENTERIC TAB PO SCH (08:23)
[2019-02-28] MEDS: SERTRALINE HCL 50 MG TAB PO SCH (08:23)
--- NOTE | 2019-02-28 09:13 | MHIPNPDOC ---
[facility] Progress Note Progress Note DATE OF SERVICE: 02/28/19 HISTORY: Patient responding to present treatment 68-year-old female with schizophrenia, schizoaffective disorder. VITAL SIGNS: See below. NEW TEST RESULTS:, None in Mondragon injection timing needs to be checked. CURRENT MEDICATIONS: See below. MENTAL STATUS EXAMINATION: Patient is a 68-year old female, who is having decreased psychotic symptoms but is unfortunately having repetitive admissions. Speech: Is clear. Language skills are moving. Thought processes including: Less thought disordered. Thought content: Paranoid concerning brother and drug dealers. Abstract reasoning, and computation: Able to abstract. Description of associations:, Loose associations, lessening Description of abnormal or psychotic thoughts: Paranoid thoughts, decreasing. Judgment: Improving. Insight:, Poor. Orientation: Intact 3. Recent and remote memory:. Difficult to measure. Attention span and concentration: Poor. Language: As above. Fund of knowledge:, Full. Mood: brighter. Affect: Labile. DIAGNOSES: 1. Schizophrenia. Schizoaffective disorder 2., Stressors of living situation.. ASSESSMENT: Patient is planned for long-term and use of Seroquel during the day and not at night seems to improved patient's compliance. Patient is awaiting long-term placement, but also needs to have in Mondragon shot renew MANAGEMENT PLAN: As above. TIME SPENT:, 35 minutes. Vital Signs Vital Signs Date Time Temp Pulse Resp B/P (MAP) Pulse Ox O2 Delivery O2 Flow Rate FiO2 02/28/19 06:52 97.2 69 14 137/85 (102) Current Medications Current Medications Acetaminophen (Tylenol Tab) 650 mg Q6HP PRN PO HEADACHE or DISCOMFORT Last administered on 02/27/19at 16:50; Start 02/10/19 at 19:15 Al Hydrox/Mg Hydrox/Simethicone (Mylanta) 30 ml Q4HP PRN PO HEARTB URN/INDIGESTION Last administered on 02/19/19at 15:06; Start 02/10/19 at 19:15 Aspirin (Ecotrin) 81 mg DAILY PO Last administered on 02/28/19at 08:23; Start 02/23/19 at 09:00 Benzonatate (Tessalon Perles) 200 mg Q4HP PRN PO COUGH; Start 02/12/19 at 17:00 Benztropine Mesylate (Cogentin) 1 mg BID PO Last administered on 02/25/19at 21:03; Start 02/12/19 at 09:00; Stop 02/26/19 at 07:54; Status DC Home Med (Med Rec Complete!) ASDIRECTED XX ; Start 02/10/19 at 12:00; Stop 02/10/19 at 12:02; Status DC Loratadine (Claritin) 10 mg DAILY PO Last administered on 02/28/19at 08:23; Start 02/11/19 at 13:00 Lorazepam (Ativan) 2 mg STAT STAT PO Last administered on 02/10/19at 15:12; Start 02/10/19 at 14:59; Stop 02/10/19 at 15:00; Status DC Magnesium Hydroxide (Milk Of Magnesia) 30 ml DAILYPRN PRN PO CONSTIPATION; Start 02/10/19 at 19:15 Non-Formulary Medication ( See Comment Field Below ) SEE COMMENTS SECTION 1T@10 XX ; Start 02/26/19 at 10:00; Stop 02/26/19 at 10:00; Status DC Olanzapine (ZyPREXA) 5 mg QAM PO Last administered on 02/12/19at 08:14; Start 02/11/19 at 09:00; Stop 02/12/19 at 10:35; Status DC Ondansetron HCl (Zofran Odt) 4 mg Q6HP PRN PO NAUSEA OR VOMITING; Start 02/22/19 at 21:00 Quetiapine Fumarate (SEROquel) 50 mg BID@0900,1600 PO Last administered on 02/18/19at 08:28; Start 02/12/19 at 16:00; Stop 02/18/19 at 13:39; Status DC Quetiapine Fumarate (SEROquel) 75 mg QAM PO ; Start 02/13/19 at 09:00; Status UNV Quetiapine Fumarate (SEROquel) 100 mg BID@0900,1600 PO Last administered on 02/24/19at 10:05; Start 02/18/19 at 16:00; Stop 02/24/19 at 10:53; Status DC Quetiapine Fumarate (SEROquel) 150 mg QHS PO Last administered on 02/17/19at 20:56; Start 02/12/19 at 21:00; Stop 02/18/19 at 13:39; Status DC Quetiapine Fumarate (SEROquel) 200 mg BID@0900,1600 PO Last administered on 02/25/19at 08:28; Start 02/24/19 at 16:00; Stop 02/25/19 at 09:14; Status DC Quetiapine Fumarate (SEROquel) 200 mg QHS PO Last administered on 02/22/19at 21:38; Start 02/18/19 at 21:00; Stop 02/24/19 at 10:53; Status DC Quetiapine Fumarate (SEROquel) 200 mg TID PO Last administered on 02/28/19at 08:23; Start 02/26/19 at 16:00 Quetiapine Fumarate (SEROquel) 300 mg BID@0900,1600 PO Last administered on 02/26/19at 08:46; Start 02/25/19 at 16:00; Stop 02/26/19 at 14:17; Status DC Quetiapine Fumarate (SEROquel) 400 mg QHS PO ; Start 02/18/19 at 21:00; Stop 02/18/19 at 21:00; Status DC Sertraline HCl (Zoloft) 75 mg QAM PO Last administered on 02/16/19at 08:04; Start 02/12/19 at 09:00; Stop 02/18/19 at 13:38; Status DC Sertraline HCl (Zoloft) 150 mg QAM PO Last administered on 02/28/19at 08:23; Start 02/18/19 at 09:00 Trazodone HCl (Desyrel) 50 mg QHSP PRN PO INSOMNIA; Start 02/10/19 at 19:15; Status Cancel Allergies Coded Allergies: No Known Allergies (Verified , 10/30/03) MICHELLE APONTE MD Feb 28, 2019 09:13
[2019-02-28] MEDS: ACETAMINOPHEN TAB 650MG DOSE (2X325MG) PO PRN (10:26)
[2019-02-28 18:00] VITALS: BP 112/67
[2019-03-01 06:43] VITALS: BP 126/65
--- NOTE | 2019-03-01 08:43 | MHIPNPDOC ---
[facility] Progress Note Progress Note DATE OF SERVICE: 03/01/19 HISTORY: 68-year-old female with chronic schizoaffective disorder and repetitive admissions. VITAL SIGNS: See below. NEW TEST RESULTS: None. CURRENT MEDICATIONS: See below. MENTAL STATUS EXAMINATION: Patient is a 68-year old female, who is speech and language becoming significantly more understandable. Speech: Is rapid. Language skills are more coherent than on admission. Thought processes including: Previously had paranoid delusions and hallucinations, not expressing them now. Thought content: As above. Abstract reasoning, and computation:, Poor abstract reasoning. Description of associations:, Some loose associations. Description of abnormal or psychotic thoughts:, Some tangential thought, previously paranoid hallucinations and delusions. Judgment:. Poor. Insight: Limited. Orientation:. Oriented 3. Recent and remote memory:, Somewhat distorted. Attention span and concentration: Poor. Language: As above. Fund of knowledge:, Difficult to measure. Mood: Variable. Affect: Labile and variable. DIAGNOSES: 1. Schizoaffective disorder. 2. Reported drug use. 3. Stressors of living situation. ASSESSMENT: Long-term care has been suggested MANAGEMENT PLAN: Continue medication at the present time. At present dose. No change. TIME SPENT: 35 minutes. Vital Signs Vital Signs Date Time Temp Pulse Resp B/P (MAP) Pulse Ox O2 Delivery O2 Flow Rate FiO2 03/01/19 06:43 98.0 56 16 126/65 (85) Current Medications Current Medications Acetaminophen (Tylenol Tab) 650 mg Q6HP PRN PO HEADACHE or DISCOMFORT Last administered on 02/28/19at 10:26; Start 02/10/19 at 19:15 Al Hydrox/Mg Hydrox/Simethicone (Mylanta) 30 ml Q4HP PRN PO HEARTBURN/INDIGESTION Last administered on 02/19/19at 15:06; Start 02/10/19 at 19:15 Aspirin (Ecotrin) 81 mg DAILY PO Last administered on 02/28/19at 08:23; Start 02/23/19 at 09:00 Benzonatate (Tessalon Perles) 200 mg Q4HP PRN PO COUGH; Start 02/12/19 at 17:00 Benztropine Mesylate (Cogentin) 1 mg BID PO Last administered on 02/25/19at 21:03; Start 02/12/19 at 09:00; Stop 02/26/19 at 07:54; Status DC Home Med (Med Rec Complete!) ASDIRECTED XX ; Start 02/10/19 at 12:00; Stop 02/10/19 at 12:02; Status DC Loratadine (Claritin) 10 mg DAILY PO Last administered on 02/28/19at 08:23; Start 02/11/19 at 13:00 Lorazepam (Ativan) 2 mg STAT STAT PO Last administered on 02/10/19at 15:12; Start 02/10/19 at 14:59; Stop 02/10/19 at 15:00; Status DC Magnesium Hydroxide (Milk Of Magnesia) 30 ml DAILYPRN PRN PO CONSTIPATION; Start 02/10/19 at 19:15 Non-Formulary Medication ( See Comment Field Below ) SEE COMMENTS SECTION 1T@10 XX ; Start 02/26/19 at 10:00; Stop 02/26/19 at 10:00; Status DC Olanzapine (ZyPREXA) 5 mg QAM PO Last administered on 02/12/19at 08:14; Start 02/11/19 at 09:00; Stop 02/12/19 at 10:35; Status DC Ondansetron HCl (Zofran Odt) 4 mg Q6HP PRN PO NAUSEA OR VOMITING; Start 02/22/19 at 21:00 Quetiapine Fumarate (SEROquel) 50 mg BID@0900,1600 PO Last administered on 02/18/19at 08:28; Start 02/12/19 at 16:00; Stop 02/18/19 at 13:39; Status DC Quetiapine Fumarate (SEROquel) 75 mg QAM PO ; Start 02/13/19 at 09:00; Status UNV Quetiapine Fumarate (SEROquel) 100 mg BID@0900,1600 PO Last administered on 02/24/19at 10:05; Start 02/18/19 at 16:00; Stop 02/24/19 at 10:53; Status DC Quetiapine Fumarate (SEROquel) 150 mg QHS PO Last administered on 02/17/19at 20:56; Start 02/12/19 at 21:00; Stop 02/18/19 at 13:39; Status DC Quetiapine Fumarate (SEROquel) 200 mg BID@0900,1600 PO Last administered on 02/25/19 08:28; Start 02/24/19 at 16:00; Stop 02/25/19 at 09:14; Status DC Quetiapine Fumarate (SEROquel) 200 mg QHS PO Last administered on 02/22/19at 21:38; Start 02/18/19 at 21:00; Stop 02/24/19 at 10:53; Status DC Quetiapine Fumarate (SEROquel) 200 mg TID PO Last administered on 02/28/19at 15:13; Start 02/26/19 at 16:00 Quetiapine Fumarate (SEROquel) 300 mg BID@0900,1600 PO Last administered on 02/26/19at 08:46; Start 02/25/19 at 16:00; Stop 02/26/19 at 14:17; Status DC Quetiapine Fumarate (SEROquel) 400 mg QHS PO ; Start 02/18/19 at 21:00; Stop 02/18/19 at 21:00; Status DC Sertraline HCl (Zoloft) 75 mg QAM PO Last administered on 02/16/19at 08:04; Start 02/12/19 at 09:00; Stop 02/18/19 at 13:38; Status DC Sertraline HCl (Zoloft) 150 mg QAM PO Last administered on 02/28/19at 08:23; Start 02/18/19 at 09:00 Trazodone HCl (Desyrel) 50 mg QHSP PRN PO INSOMNIA; Start 02/10/19 at 19:15; Status Cancel Allergies Coded Allergies: No Known Allergies (Verified , 10/30/03) MICHELLE APONTE MD Mar 01, 2019 08:43
[2019-03-01] MEDS: SERTRALINE HCL 50 MG TAB PO SCH (09:06)
[2019-03-01] MEDS: LORATADINE 10 MG TAB PO SCH (09:06)
[2019-03-01] MEDS: ASPIRIN 81 MG ENTERIC TAB PO SCH (09:06)
[2019-03-01] MEDS: QUEtiapine FUMARATE 200 MG TAB PO SCH ×3 (09:06→22:13)
[2019-03-01] MEDS: ACETAMINOPHEN TAB 650MG DOSE (2X325MG) PO PRN (10:42)
[2019-03-01 18:00] VITALS: BP 118/67
[2019-03-02 06:13] VITALS: BP 145/95
[2019-03-02] MEDS: SERTRALINE HCL 50 MG TAB PO SCH (09:45)
[2019-03-02] MEDS: LORATADINE 10 MG TAB PO SCH (09:45)
[2019-03-02] MEDS: ASPIRIN 81 MG ENTERIC TAB PO SCH (09:45)
[2019-03-02] MEDS: QUEtiapine FUMARATE 200 MG TAB PO SCH ×3 (09:45→21:00)
[2019-03-02 18:16] VITALS: BP 120/77
--- NOTE | 2019-03-02 21:45 | MHIPNPDOC ---
[facility] Progress Note Progress Note DATE OF SERVICE: 03/02/19 HISTORY: 68-year-old female with chronic schizoaffective disorder and repetitive admissions. VITAL SIGNS: See below. NEW TEST RESULTS: None. CURRENT MEDICATIONS: See below. MENTAL STATUS EXAMINATION: Patient is a 68-year old female, who is still delusional Speech: Is rapid and slurred. Tangential Language skills are more coherent than on admission but she is still tangential Thought processes including: Previously had paranoid delusions and hallucinations, not expressing them now. Thought content: As above. Abstract reasoning, and computation:Poor abstract reasoning. Description of associations:, Some loose associations. Description of abnormal or psychotic thoughts:, Some tangential thought, previously paranoid hallucinations and delusions. Judgment:. Poor. Insight: Limited. Orientation:. Oriented 3. Recent and remote memory:, Somewhat distorted. Attention span and concentration: Poor. Language: As above. Fund of knowledge:, Difficult to measure. Mood: Variable. Affect: Labile and variable. DIAGNOSES: 1. Schizoaffective disorder. 2. Reported drug use. 3. Stressors of living situation. ASSESSMENT: Her mental status exam has not changed much from previous days. It was interesting that today, she didn't speak to me when I met her in the hallway, she seemed to be distracted. She has always been very talkative with me. When I spoke with her, it was evident that she had recognized me but she was upset with me because she is going to be transferred to [facility] [place]. MANAGEMENT PLAN: Continue medication at the present time. At present dose. No change. TIME SPENT: 35 minutes. Vital Signs Vital Signs Date Time Temp Pulse Resp B/P (MAP) Pulse Ox O2 Delivery O2 Flow Rate FiO2 03/02/19 18:16 98.6 76 16 120/77 (91) Current Medications Current Medications Acetaminophen (Tylenol Tab) 650 mg Q6HP PRN PO HEADACHE or DISCOMFORT Last administered on 03/01/19at 10:42; Start 02/10/19 at 19:15 Al Hydrox/Mg Hydrox/Simethicone (Mylanta) 30 ml Q4HP PRN PO HEARTBURN/INDIGE STION Last administered on 02/19/19at 15:06; Start 02/10/19 at 19:15 Aspirin (Ecotrin) 81 mg DAILY PO Last administered on 03/02/19at 09:45; Start 02/23/19 at 09:00 Benzonatate (Tessalon Perles) 200 mg Q4HP PRN PO COUGH; Start 02/12/19 at 17:00 Benztropine Mesylate (Cogentin) 1 mg BID PO Last administered on 02/25/19at 21:03; Start 02/12/19 at 09:00; Stop 02/26/19 at 07:54; Status DC Home Med (Med Rec Complete!) ASDIRECTED XX ; Start 02/10/19 at 12:00; Stop 02/10/19 at 12:02; Status DC Loratadine (Claritin) 10 mg DAILY PO Last administered on 03/02/19at 09:45; Start 02/11/19 at 13:00 Lorazepam (Ativan) 2 mg STAT STAT PO Last administered on 02/10/19at 15:12; Start 02/10/19 at 14:59; Stop 02/10/19 at 15:00; Status DC Magnesium Hydroxide (Milk Of Magnesia) 30 ml DAILYPRN PRN PO CONSTIPATION; Start 02/10/19 at 19:15 Non-Formulary Medication ( See Comment Field Below ) SEE COMMENTS SECTION 1T@10 XX ; Start 02/26/19 at 10:00; Stop 02/26/19 at 10:00; Status DC Olanzapine (ZyPREXA) 5 mg QAM PO Last administered on 02/12/19at 08:14; Start 02/11/19 at 09:00; Stop 02/12/19 at 10:35; Status DC Ondansetron HCl (Zofran Odt) 4 mg Q6HP PRN PO NAUSEA OR VOMITING; Start 02/22/19 at 21:00 Quetiapine Fumarate (SEROquel) 50 mg BID@0900,1600 PO Last administered on 02/18at 08:28; Start 02/12/19 at 16:00; Stop 02/18/19 at 13:39; Status DC Quetiapine Fumarate (SEROquel) 75 mg QAM PO ; Start 02/13/19 at 09:00; Status UNV Quetiapine Fumarate (SEROquel) 100 mg BID@0900,1600 PO Last administered on 02/24/19at 10:05; Start 02/18/19 at 16:00; Stop 02/24/19 at 10:53; Status DC Quetiapine Fumarate (SEROquel) 150 mg QHS PO Last administered on 02/17/19at 20:56; Start 02/12/19 at 21:00; Stop 02/18/19 at 13:39; Status DC Quetiapine Fumarate (SEROquel) 200 mg BID@0900,1600 PO Last administered on 02/25/19at 08:28; Start 02/24/19 at 16:00; Stop 02/25/19 at 09:14; Status DC Quetiapine Fumarate (SEROquel) 200 mg QHS PO Last administered on 02/22/19at 21:38; Start 02/18/19 at 21:00; Stop 02/24/19 at 10:53; Status DC Quetiapine Fumarate (SEROquel) 200 mg TID PO Last administered on 03/02/19at 16:20; Start 02/26/19 at 16:00 Quetiapine Fumarate (SEROquel) 300 mg BID@0900,1600 PO Last administered on 02/26/19at 08:46; Start 02/25/19 at 16:00; Stop 02/26/19 at 14:17; Status DC Quetiapine Fumarate (SEROquel) 400 mg QHS PO ; Start 02/18/19 at 21:00; Stop 02/18/19 at 21:00; Status DC Sertraline HCl (Zoloft) 75 mg QAM PO Last administered on 02/16/19 08:04; Start 02/12/19 at 09:00; Stop 02/18/19 at 13:38; Status DC Sertraline HCl (Zoloft) 150 mg QAM PO Last administered on 03/02/19at 09:45; Start 02/18/19 at 09:00 Trazodone HCl (Desyrel) 50 mg QHSP PRN PO INSOMNIA; Start 02/10/19 at 19:15; Status Cancel Allergies Coded Allergies: No Known Allergies (Verified , 10/30/03) DANA ROSALES MD Mar 02, 2019 21:45
[2019-03-03 06:33] VITALS: BP 112/78
[2019-03-03] MEDS: ASPIRIN 81 MG ENTERIC TAB PO SCH (09:38)
[2019-03-03] MEDS: QUEtiapine FUMARATE 200 MG TAB PO SCH ×3 (09:38→21:20)
[2019-03-03] MEDS: LORATADINE 10 MG TAB PO SCH (09:39)
[2019-03-03] MEDS: SERTRALINE HCL 50 MG TAB PO SCH (09:39)
--- NOTE | 2019-03-03 15:20 | MHIPNPDOC ---
[facility] Progress Note Progress Note DATE OF SERVICE: 03/03/19 HISTORY: 68-year-old female with history of schizoaffective disorder and non compliance with h/o of repeated admissions. She still is dlusional, has magical thinking, denominational preoccupations and paranoid thoughts about someone poisoning the water and coffee in our Unit. VITAL SIGNS: See below. NEW TEST RESULTS: None. CURRENT MEDICATIONS: See below. MENTAL STATUS EXAMINATION: Patient is a 68-year old female, who is still delusional Speech: Is rapid and slurred. Tangential Language skills tangential but she has improved since her admission Thought processes including: she has paranoid delusions about her being poisoned here at the Unit (someone poisoning the coffee, not only hers but for all the patients. someone poisoning the water, not only hers) Thought content: paranoid delusions, denominational preoccupations but at the same time future orientated, wanting to go home and have a cat Abstract reasoning, and computation:Poor abstract reasoning. Description of associations: Some loose associations. Description of abnormal or psychotic thoughts: Paranoid delusions, denominational preoccupations Judgment:. Poor. Insight: Limited. Orientation: Oriented 2 (not to date and time) Recent and remote memory: Limited Attention span and concentration: Poor. Language: As above. Fund of knowledge:, Difficult to measure. Mood: anxious Affect: congruent with mood, labile DIAGNOSES: 1. Schizoaffective disorder. 2. Reported drug use. 3. Stressors of living situation. ASSESSMENT: The patient has lapsus when she seems to be responding to internal stimuli. She stops talking and stares as if she would have been disconnected from her surroundings. she is overall pleasant but she is paranoid, she believes someone has poisoned the water and the coffee in the Unit, she believes this person is the devil. She wants to go home and move on with her life, she wants to get a cat to keep hr company. MANAGEMENT PLAN: Continue medication at the present time. At present dose. No change. TIME SPENT: 30 minutes. Vital Signs Vital Signs Date Time Temp Pulse Resp B/P (MAP) Pulse Ox O2 Delivery O2 Flow Rate FiO2 03/03/19 06:33 97.7 69 16 112/78 (89) Current Medications Current Medications Acetaminophen (Tylenol Tab) 650 mg Q6HP PRN PO HEADACHE or DISCOMFORT Last administered on 03/01/19at 10:42; Start 02/10/19 at 19:15 Al Hydrox/Mg Hydrox/Simethicone (Mylanta) 30 ml Q4HP PRN PO HEARTBURN/INDIGESTION Last administered on 02/19/19at 15:06; Start 02/10/19 at 19:15 Aspirin (Ecotrin) 81 mg DAILY PO Last administered on 03/03/19at 09:38; Start 02/23/19 at 09:00 Benzonatate (Tessalon Perles) 200 mg Q4HP PRN PO COUGH; Start 02/12/19 at 17:00 Benztropine Mesylate (Cogentin) 1 mg BID PO Last administered on 02/25/19at 21:03; Start 02/12/19 at 09:00; Stop 02/26/19 at 07:54; Status DC Home Med (Med Rec Complete!) ASDIRECTED XX ; Start 02/10/19 at 12:00; Stop 02/10/19 at 12:02; Status DC Loratadine (Claritin) 10 mg DAILY PO Last administered on 03/03/19at 09:39; Start 02/11/19 at 13:00 Lorazepam (Ativan) 2 mg STAT STAT PO Last administered on 02/10/19at 15:12; Start 02/10/19 at 14:59; Stop 02/10/19 at 15:00; Status DC Magnesium Hydroxide (Milk Of Magnesia) 30 ml DAILYPRN PRN PO CONSTIPATION; Start 02/10/19 at 19:15 Non-Formulary Medication ( See Comment Field Below ) SEE COMMENTS SECTION 1T@10 XX ; Start 02/26/19 at 10:00; Stop 02/26/19 at 10:00; Status DC Olanzapine (ZyPREXA) 5 mg QAM PO Last administered on 02/12/19at 08:14; Start 02/11/19 at 09:00; Stop 02/12/19 at 10:35; Status DC Ondansetron HCl (Zofran Odt) 4 mg Q6HP PRN PO NAUSEA OR VOMITING; Start 02/22/19 at 21:00 Quetiapine Fumarate (SEROquel) 50 mg BID@0900,1600 PO Last administered on 02/18/19at 08:28; Start 02/12/19 at 16:00; Stop 02/18/19 at 13:39; Status DC Quetiapine Fumarate (SEROquel) 75 mg QAM PO ; Start 02/13/19 at 09:00; Status UNV Quetiapine Fumarate (SEROquel) 100 mg BID@0900,1600 PO Last administered on 02/24/19at 10:05; Start 02/18/19 at 16:00; Stop 02/24/19 at 10:53; Status DC Quetiapine Fumarate (SEROquel) 150 mg QHS PO Last administered on 02/17/19at 20:56; Start 02/12/19 at 21:00; Stop 02/18/19 at 13:39; Status DC Quetiapine Fumarate (SEROquel) 200 mg BID@0900,1600 PO Last administered on 02/25/19at 08:28; Start 02/24/19 at 16:00; Stop 02/25/19 at 09:14; Status DC Quetiapine Fumarate (SEROquel) 200 mg QHS PO Last administered on 02/22/19at 21:38; Start 02/18/19 at 21:00; Stop 02/24/19 at 10:53; Status DC Quetiapine Fumarate (SEROquel) 200 mg TID PO Last administered on 03/03/19at 09:38; Start 02/26/19 at 16:00 Quetiapine Fumarate (SEROquel) 300 mg BID@0900,1600 PO Last administered on 02/26/19at 08:46; Start 02/25/19 at 16:00; Stop 02/26/19 at 14:17; Status DC Quetiapine Fumarate (SEROquel) 400 mg QHS PO ; Start 02/18/19 at 21:00; Stop 02/18/19 at 21:00; Status DC Sertraline HCl (Zoloft) 75 mg QAM PO Last administered on 02/16/19at 08:04; Start 02/12/19 at 09:00; Stop 02/18/19 at 13:38; Status DC Sertraline HCl (Zoloft) 150 mg QAM PO Last administered on 03/03/19at 09:39; Start 02/18/19 at 09:00 Trazodone HCl (Desyrel) 50 mg QHSP PRN PO INSOMNIA; Start 02/10/19 at 19:15; Status Cancel Allergies Coded Allergies: No Known Allergies (Verified , 10/30/03) DANA ROSALES MD Mar 03, 2019 15:20
[2019-03-03 17:53] VITALS: BP 91/51
[2019-03-03 18:00] VITALS: BP 91/50
[2019-03-04 06:44] VITALS: BP 104/61
[2019-03-04] MEDS: ASPIRIN 81 MG ENTERIC TAB PO SCH (09:06)
[2019-03-04] MEDS: SERTRALINE HCL 50 MG TAB PO SCH (09:06)
[2019-03-04] MEDS: QUEtiapine FUMARATE 200 MG TAB PO SCH ×3 (09:07→22:43)
[2019-03-04] MEDS: LORATADINE 10 MG TAB PO SCH (09:07)
--- NOTE | 2019-03-04 15:22 | MHIPNPDOC ---
[facility] Progress Note Progress Note DATE OF SERVICE: 03/04/19 HISTORY: 68-year-old female with history of schizoaffective disorder and non compliance with h/o of repeated admissions. She still is dlusional, has magical thinking, gnosticism preoccupations and paranoid thoughts about someone poisoning the water and coffee in our Unit. VITAL SIGNS: See below. NEW TEST RESULTS: None. CURRENT MEDICATIONS: See below. MENTAL STATUS EXAMINATION: Patient is a 68-year old female, who is still delusional, today she presents irritable, depressed, very anxious Speech: slurred (but improved), less tangential Language skills improving, she is less tangential Thought processes including: she has paranoid delusions about her being poisoned here at the Unit (someone poisoning the coffee, not only hers but for all the patients. someone poisoning the water, not only hers). Less tangential but still disorganized Thought content: paranoid delusions, gnosticism preoccupations but at the same time future orientated, wanting to go home and have a cat Abstract reasoning, and computation:Poor abstract reasoning. Description of associations: Loose Description of abnormal or psychotic thoughts: Paranoid delusions, gnosticism preoccupations, angry thoughts about not being discharged Judgment:. Poor. Insight: Limited. Orientation: Oriented 2 (not to date and time) Recent and remote memory: Limited Attention span and concentration: Poor. Language: As above. Fund of knowledge:, Difficult to measure. Mood: anxious, irritable,depressed Affect: congruent with mood, labile DIAGNOSES: 1. Schizoaffective disorder. 2. Reported drug use. 3. Stressors of living situation. ASSESSMENT: The patient is depressed today, she says that she doesn't know why she is here, at the hospital. I explain one of the reasons is because she has been telling us that the water and the coffee are poisoned, that a staff member is the devil. today she tells me that once she saw when someone put a pill in the coffee and the water. She says she feels very tired, that she is 68 but she feels like 89, that she worries about her home because there's a woman that goes into her apartment. MANAGEMENT PLAN: Continue medication at the present time. At present dose. No change. TIME SPENT: 30 minutes. Vital Signs Vital Signs Date Time Temp Pulse Resp B/P (MAP) Pulse Ox O2 Delivery O2 Flow Rate FiO2 03/04/19 06:44 97.4 56 12 104/61 (75) Current Medications Current Medications Acetaminophen (Tylenol Tab) 650 mg Q6HP PRN PO HEADACHE or DISCOMFORT Last administered on 03/01/19at 10:42; Start 02/10/19 at 19:15 Al Hydrox/Mg Hydrox/Simethicone (Mylanta) 30 ml Q4HP PRN PO HEARTBURN/INDIGESTION Last administered on 02/19/19at 15:06; Start 02/10/19 at 19:15 Aspirin (Ecotrin) 81 mg DAILY PO Last administered on 03/04/19at 09:06; Start 02/23/19 at 09:00 Benzonatate (Tessalon Perles) 200 mg Q4HP PRN PO COUGH; Start 02/12/19 at 17:00 Benztropine Mesylate (Cogentin) 1 mg BID PO Last administered on 02/25/19at 21:03; Start 02/12/19 at 09:00; Stop 02/26/19 at 07:54; Status DC Home Med (Med Rec Complete!) ASDIRECTED XX ; Start 02/10/19 at 12:00; Stop 02/10/19 at 12:02; Status DC Loratadine (Claritin) 10 mg DAILY PO Last administered on 03/04/19at 09:07; Start 02/11/19 at 13:00 Lorazepam (Ativan) 2 mg STAT STAT PO Last administered on 02/10/19at 15:12; Start 02/10/19 at 14:59; Stop 02/10/19 at 15:00; Status DC Magnesium Hydroxide (Milk Of Magnesia) 30 ml DAILYPRN PRN PO CONSTIPATION; Start 02/10/19 at 19:15 Non-Formulary Medication ( See Comment Field Below ) SEE COMMENTS SECTION 1T@10 XX ; Start 02/26/19 at 10:00; Stop 02/26/19 at 10:00; Status DC Olanzapine (ZyPREXA) 5 mg QAM PO Last administered on 02/12/19at 08:14; Start 02/11/19 at 09:00; Stop 02/12/19 at 10:35; Status DC Ondansetron HCl (Zofran Odt) 4 mg Q6HP PRN PO NAUSEA OR VOMITING; Start 02/22/19 at 21:00 Quetiapine Fumarate (SEROquel) 50 mg BID@0900,1600 PO Last administered on 02/18/19at 08:28; Start 02/12/19 at 16:00; Stop 02/18/19 at 13:39; Status DC Quetiapine Fumarate (SEROquel) 75 mg QAM PO ; Start 02/13/19 at 09:00; Status UNV Quetiapine Fumarate (SEROquel) 100 mg BID@0900,1600 PO Last administered on 02/24/19at 10:05; Start 02/18/19 at 16:00; Stop 02/24/19 at 10:53; Status DC Quetiapine Fumarate (SEROquel) 150 mg QHS PO Last administered on 02/17/19at 20:56; Start 02/12/19 at 21:00; Stop 02/18/19 at 13:39; Status DC Quetiapine Fumarate (SEROquel) 200 mg BID@0900,1600 PO Last administered on 02/25/19at 08:28; Start 02/24/19 at 16:00; Stop 02/25/19 at 09:14; Status DC Quetiapine Fumarate (SEROquel) 200 mg QHS PO Last administered on 02/22/19at 21:38; Start 02/18/19 at 21:00; Stop 02/24/19 at 10:53; Status DC Quetiapine Fumarate (SEROquel) 200 mg TID PO Last administered on 03/04/19at 09:07; Start 02/26/19 at 16:00 Quetiapine Fumarate (SEROquel) 300 mg BID@0900,1600 PO Last administered on 02/26/19at 08:46; Start 02/25/19 at 16:00; Stop 02/26/19 at 14:17; Status DC Quetiapine Fumarate (SEROquel) 400 mg QHS PO ; Start 02/18/19 at 21:00; Stop 02/18/19 at 21:00; Status DC Sertraline HCl (Zoloft) 75 mg QAM PO Last administered on 02/16/19at 08:04; Start 02/12/19 at 09:00; Stop 02/18/19 at 13:38; Status DC Sertraline HCl (Zoloft) 150 mg QAM PO Last administered on 03/04/19at 09:06; Start 02/18/19 at 09:00 Trazodone HCl (Desyrel) 50 mg QHSP PRN PO INSOMNIA; Start 02/10/19 at 19:15; Status Cancel Allergies Coded Allergies: No Known Allergies (Verified , 10/30/03) DANA ROSALES MD Mar 04, 2019 15:22
[2019-03-04] MEDS: QUEtiapine FUMARATE 25 MG TAB PO SCH ×2 (15:52→22:43)
[2019-03-04 18:22] VITALS: BP 110/62
[2019-03-05 06:47] VITALS: BP 123/80
[2019-03-05] MEDS: SERTRALINE 100 MG TAB PO SCH (08:02)
[2019-03-05] MEDS: LORATADINE 10 MG TAB PO SCH (08:02)
[2019-03-05] MEDS: QUEtiapine FUMARATE 25 MG TAB PO SCH ×3 (08:02→21:58)
[2019-03-05] MEDS: ASPIRIN 81 MG ENTERIC TAB PO SCH (08:02)
[2019-03-05] MEDS: QUEtiapine FUMARATE 200 MG TAB PO SCH ×3 (08:02→21:58)
[2019-03-05 18:12] VITALS: BP 104/61
--- NOTE | 2019-03-05 19:19 | MHIPNPDOC ---
[facility] Progress Note Progress Note DATE OF SERVICE: 03/05/19 HISTORY: 68-year-old female with history of schizoaffective disorder and non compliance with h/o of repeated admissions. She still is dlusional, has magical thinking, orthodox preoccupations and paranoid thoughts about someone poisoning the water and coffee in our Unit. VITAL SIGNS: See below. NEW TEST RESULTS: None. CURRENT MEDICATIONS: See below. MENTAL STATUS EXAMINATION: Patient is a 68-year old female, who is still delusional, today she presents irritable, depressed, very anxious Speech: slurred (but improved), less tangential Language skills improving, she is less tangential Thought processes including: she has paranoid delusions about her being poisoned here at the Unit (someone poisoning the coffee, not only hers but for all the patients. someone poisoning the water, not only hers). Less tangential but still disorganized Thought content: paranoid delusions, orthodox preoccupations but at the same time future orientated, wanting to go home and have a cat Abstract reasoning, and computation:Poor abstract reasoning. Description of associations: Loose Description of abnormal or psychotic thoughts: Paranoid delusions, orthodox preoccupations, angry thoughts about not being discharged Judgment:. Poor. Insight: Limited. Orientation: Oriented 2 (not to date and time) Recent and remote memory: Limited Attention span and concentration: Poor. Language: As above. Fund of knowledge:, Difficult to measure. Mood: anxious, irritable,depressed Affect: congruent with mood, labile DIAGNOSES: 1. Schizoaffective disorder. 2. Reported drug use. 3. Stressors of living situation. ASSESSMENT: The patient's mental status exam has not changed since yesterday except that her speech is more clear, less tangential. she clearly remembers her home and how her life used to be before coming to the Unit. she is in denieal of her illness, saying others wanting to harm her. She has tough time accepting that she is paranoid.. She wants to go home, doesn't remember she has her administrative hearing tomorrow. MANAGEMENT PLAN: Continue medication at the present time. She had a minimal increase in Seroquel 2 days ago, it was increased to 225 mgs PO TID (it was 200 mgs PO TID). TIME SPENT: 30 minutes. Vital Signs Vital Signs Date Time Temp Pulse Resp B/P (MAP) Pulse Ox O2 Delivery O2 Flow Rate FiO2 03/05/19 18:12 97.0 91 16 104/61 (75) Current Medications Current Medications Acetaminophen (Tylenol Tab) 650 mg Q6HP PRN PO HEADACHE or DISCOMFORT Last administered on 03/01/19at 10:42; Start 02/10/19 at 19:15 Al Hydrox/Mg Hydrox/Simethicone (Mylanta) 30 ml Q4HP PRN PO HEARTBURN/INDIGESTION Last administered on 02/19/19at 15:06; Start 02/10/19 at 19:15 Aspirin (Ecotrin) 81 mg DAILY PO Last administered on 03/05/19at 08:02; Start 02/23/19 at 09:00 Benzonatate (Tessalon Perles) 200 mg Q4HP PRN PO COUGH; Start 02/12/19 at 17:00 Benztropine Mesylate (Cogentin) 1 mg BID PO Last administered on 02/25/19at 21:03; Start 02/12/19 at 09:00; Stop 02/26/19 at 07:54; Status DC Home Med (Med Rec Complete!) ASDIRECTED XX ; Start 02/10/19 at 12:00; Stop 02/10/19 at 12:02; Status DC Loratadine (Claritin) 10 mg DAILY PO Last administered on 03/05/19at 08:02; Start 02/11/19 at 13:00 Lorazepam (Ativan) 2 mg STAT STAT PO Last administered on 02/10/19at 15:12; Start 02/10/19 at 14:59; Stop 02/10/19 at 15:00; Status DC Magnesium Hydroxide (Milk Of Magnesia) 30 ml DAILYPRN PRN PO CONSTIPATION; Start 02/10/19 at 19:15 Non-Formulary Medication ( See Comment Field Below ) SEE COMMENTS SECTION 1T@10 XX ; Start 02/26/19 at 10:00; Stop 02/26/19 at 10:00; Status DC Olanzapine (ZyPREXA) 5 mg QAM PO Last administered on 02/12/19at 08:14; Start 02/11/19 at 09:00; Stop 02/12/19 at 10:35; Status DC Ondansetron HCl (Zofran Odt) 4 mg Q6HP PRN PO NAUSEA OR VOMITING; Start 02/22/19 at 21:00 Quetiapine Fumarate (SEROquel) 25 mg TID PO Last administered on 03/05/19at 16:43; Start 03/04/19 at 16:00 Quetiapine Fumarate (SEROquel) 50 mg BID@0900,1600 PO Last administered on 02/18/19 08:28; Start 02/12/19 at 16:00; Stop 02/18/19 at 13:39; Status DC Quetiapine Fumarate (SEROquel) 75 mg QAM PO ; Start 02/13/19 at 09:00; Status UNV Quetiapine Fumarate (SEROquel) 100 mg BID@0900,1600 PO Last administered on 02/24/19at 10:05; Start 02/18/19 at 16:00; Stop 02/24/19 at 10:53; Status DC Quetiapine Fumarate (SEROquel) 150 mg QHS PO Last administered on 02/17/19at 20:56; Start 02/12/19 at 21:00; Stop 02/18/19 at 13:39; Status DC Quetiapine Fumarate (SEROquel) 200 mg BID@0900,1600 PO Last administered on 02/25/19 08:28; Start 02/24/19 at 16:00; Stop 02/25/19 at 09:14; Status DC Quetiapine Fumarate (SEROquel) 200 mg QHS PO Last administered on 02/22/19at 21:38; Start 02/18/19 at 21:00; Stop 02/24/19 at 10:53; Status DC Quetiapine Fumarate (SEROquel) 200 mg TID PO Last administered on 03/04/19 09:07; Start 02/26/19 at 16:00; Stop 03/04/19 at 15:39; Status DC Quetiapine Fumarate (SEROquel) 200 mg TID PO Last administered on 03/05/19at 16:43; Start 03/04/19 at 16:00 Quetiapine Fumarate (SEROquel) 300 mg BID@0900,1600 PO Last administered on 02/26/19at 08:46; Start 02/25/19 at 16:00; Stop 6/13/19 at 14:17; Status DC Quetiapine Fumarate (SEROquel) 400 mg QHS PO ; Start 02/18/19 at 21:00; Stop 02/18/19 at 21:00; Status DC Sertraline HCl (Zoloft) 75 mg QAM PO Last administered on 02/16/19at 08:04; Start 02/12/19 at 09:00; Stop 02/18/19 at 13:38; Status DC Sertraline HCl (Zoloft) 150 mg QAM PO Last administered on 03/04/19at 09:06; Start 02/18/19 at 09:00; Stop 03/04/19 at 15:23; Status DC Sertraline HCl (Zoloft) 200 mg QAM PO Last administered on 03/05/19at 08:02; Start 03/05/19 at 09:00 Trazodone HCl (Desyrel) 50 mg QHSP PRN PO INSOMNIA; Start 02/10/19 at 19:15; Status Cancel Allergies Coded Allergies: No Known Allergies (Verified , 10/30/03) DANA ROSALES MD Mar 05, 2019 19:19
[2019-03-06 07:08] VITALS: BP 115/71
[2019-03-06] MEDS: LORATADINE 10 MG TAB PO SCH (09:41)
[2019-03-06] MEDS: QUEtiapine FUMARATE 200 MG TAB PO SCH ×3 (09:41→21:24)
[2019-03-06] MEDS: ASPIRIN 81 MG ENTERIC TAB PO SCH (09:41)
[2019-03-06] MEDS: SERTRALINE 100 MG TAB PO SCH (09:41)
[2019-03-06] MEDS: QUEtiapine FUMARATE 25 MG TAB PO SCH ×3 (09:41→21:24)
[2019-03-06 18:13] VITALS: BP 147/87
--- NOTE | 2019-03-06 21:51 | MHIPNPDOC ---
[facility] Progress Note Progress Note DATE OF SERVICE: 03/06/19 HISTORY: 68-year-old female with history of schizoaffective disorder and non compliance with h/o of repeated admissions. She still is delusional, has magical thinking, restorationism preoccupations and paranoid thoughts about someone poisoning the water and coffee in our Unit. VITAL SIGNS: See below. NEW TEST RESULTS: None. CURRENT MEDICATIONS: See below. MENTAL STATUS EXAMINATION: Patient is a 68-year old female, who is less delusional, her thoughts are more organized Speech: slurred (but improved), less tangential Language skills improving, she is less tangential Thought processes including: She still has paranoid thoughts about some staff members but she says the water and the coffee have not been poisoned lately, she says she doesn't know the girl that comes to her apartment, she doesn't know if people are breaking in or not (this is an improvement because she used o say that people used to break in for sure, now she says she is not sure) Thought content: paranoid delusions, restorationism preoccupations but at the same time future orientated, wanting to go home and have a cat.She does not have suicidal ideation and doesn't have homicidal ideations Abstract reasoning, and computation:Poor abstract reasoning. Description of associations: Loose Description of abnormal or psychotic thoughts: Paranoid delusions, restorationism preoccupations ( both, paranoid delusions and restorationism preoccupations are less frequent and less intense) Judgment:. Poor. Insight: Limited. Orientation: Oriented 2 (not to date and time) Recent and remote memory: Limited Attention span and concentration: Poor. Language: As above. Fund of knowledge:, Difficult to measure. Mood: euthymic Affect: congruent with mood, labile DIAGNOSES: 1. Schizoaffective disorder. 2. Reported drug use. 3. Stressors of living situation. ASSESSMENT: The patient has shown improvement and I made the comment that I didn't want to send her to [facility] because I thought this was her best presentation. She showed a major improvement this week since Seroquel was increased and although she doesn't like to be sedated, she is not as paranoid as she was and her thoughts are not as disorganized. Her paranoia has decreased, she is less tangential, her mood and affect have improved. I said that I have noticed her improvement, she is due for her Invega Sustenna injection on March 16. but maybe we can administer it next week, observe how she reacts and titer her medication, possibly she will need a reduction in Seroquel with the Invega Sustenna injection. MANAGEMENT PLAN: Continue medication at the present time and consider administering Invega Sustenna injection next week. TIME SPENT: 30 minutes. Vital Signs Vital Signs Date Time Temp Pulse Resp B/P (MAP) Pulse Ox O2 Delivery O2 Flow Rate FiO2 03/06/19 18:13 97.8 80 16 147/87 (107) Current Medications Current Medications Acetaminophen (Tylenol Tab) 650 mg Q6HP PRN PO HEADACHE or DISCOMFORT Last administered on 03/01/19at 10:42; Start 02/10/19 at 19:15 Al Hydrox/Mg Hydrox/Simethicone (Mylanta) 30 ml Q4HP PRN PO HEARTBURN/INDIGESTION Last administered on 02/19/19at 15:06; Start 02/10/19 at 19:15 Aspirin (Ecotrin) 81 mg DAILY PO Last administered on 03/06/19at 09:41; Start 02/23/19 at 09:00 Benzonatate (Tessalon Perles) 200 mg Q4HP PRN PO COUGH; Start 02/12/19 at 17:00 Benztropine Mesylate (Cogentin) 1 mg BID PO Last administered on 02/25/19at 2 1:03; Start 02/12/19 at 09:00; Stop 02/26/19 at 07:54; Status DC Home Med (Med Rec Complete!) ASDIRECTED XX ; Start 02/10/19 at 12:00; Stop 02/10/19 at 12:02; Status DC Loratadine (Claritin) 10 mg DAILY PO Last administered on 03/06/19at 09:41; Start 02/11/19 at 13:00 Lorazepam (Ativan) 2 mg STAT STAT PO Last administered on 02/10/19at 15:12; Start 02/10/19 at 14:59; Stop 02/10/19 at 15:00; Status DC Magnesium Hydroxide (Milk Of Magnesia) 30 ml DAILYPRN PRN PO CONSTIPATION; Start 02/10/19 at 19:15 Non-Formulary Medication ( See Comment Field Below ) SEE COMMENTS SECTION 1T@10 XX ; Start 02/26/19 at 10:00; Stop 02/26/19 at 10:00; Status DC Olanzapine (ZyPREXA) 5 mg QAM PO Last administered on 02/12/19at 08:14; Start 02/11/19 at 09:00; Stop 02/12/19 at 10:35; Status DC Ondansetron HCl (Zofran Odt) 4 mg Q6HP PRN PO NAUSEA OR VOMITING; Start 02/22/19 at 21:00 Quetiapine Fumarate (SEROquel) 25 mg TID PO Last administered on 03/06/19at 16:01; Start 03/04/19 at 16:00 Quetiapine Fumarate (SEROquel) 50 mg BID@0900,1600 PO Last administered on 02/18/19at 08:28; Start 02/12/19 at 16:00; Stop 02/18/19 at 13:39; Status DC Quetiapine Fumarate (SEROquel) 75 mg QAM PO ; Start 02/13/19 at 09:00; Status UNV Quetiapine Fumarate (SEROquel) 100 mg BID@0900,1600 PO Last administered on 02/24/19at 10:05; Start 02/18/19 at 16:00; Stop 02/24/19 at 10:53; Status DC Quetiapine Fumarate (SEROquel) 150 mg QHS PO Last administered on 02/17/19at 20:56; Start 02/12/19 at 21:00; Stop 02/18/19 at 13:39; Status DC Quetiapine Fumarate (SEROquel) 200 mg BID@0900,1600 PO Last administered on 02/25/19at 08:28; Start 02/24/19 at 16:00; Stop 02/25/19 at 09:14; Status DC Quetiapine Fumarate (SEROquel) 200 mg QHS PO Last administered on 02/22/19at 21:38; Start 02/18/19 at 21:00; Stop 02/24/19 at 10:53; Status DC Quetiapine Fumarate (SEROquel) 200 mg TID PO Last administered on 03/04/19at 09:07; Start 02/26/19 at 16:00; Stop 03/04/19 at 15:39; Status DC Quetiapine Fumarate (SEROquel) 200 mg TID PO Last administered on 03/06/19at 16:01; Start 03/04/19 at 16:00 Quetiapine Fumarate (SEROquel) 300 mg BID@0900,1600 PO Last administered on 02/26/19at 08:46; Start 02/25/19 at 16:00; Stop 02/26/19 at 14:17; Status DC Quetiapine Fumarate (SEROquel) 400 mg QHS PO ; Start 02/18/19 at 21:00; Stop 02/18/19 at 21:00; Status DC Sertraline HCl (Zoloft) 75 mg QAM PO Last administered on 02/16/19at 08:04; Start 02/12/19 at 09:00; Stop 02/18/19 at 13:38; Status DC Sertraline HCl (Zoloft) 150 mg QAM PO Last administered on 03/04/19at 09:06; Start 02/18/19 at 09:00; Stop 03/04/19 at 15:23; Status DC Sertraline HCl (Zoloft) 200 mg QAM PO Last administered on 03/06/19at 09:41; Start 03/05/19 at 09:00 Trazodone HCl (Desyrel) 50 mg QHSP PRN PO INSOMNIA; Start 02/10/19 at 19:15; Status Cancel Allergies Coded Allergies: No Known Allergies (Verified , 10/30/03) DANA ROSALES MD Mar 06, 2019 21:51
[2019-03-07 06:35] VITALS: BP 113/56
[2019-03-07] MEDS: ASPIRIN 81 MG ENTERIC TAB PO SCH (09:50)
[2019-03-07] MEDS: QUEtiapine FUMARATE 25 MG TAB PO SCH ×3 (09:50→20:42)
[2019-03-07] MEDS: LORATADINE 10 MG TAB PO SCH (09:50)
[2019-03-07] MEDS: QUEtiapine FUMARATE 200 MG TAB PO SCH ×3 (09:50→20:42)
[2019-03-07] MEDS: SERTRALINE 100 MG TAB PO SCH (09:51)
[2019-03-07 19:14] VITALS: BP 113/63
[2019-03-08 06:58] VITALS: BP 112/79
[2019-03-08] MEDS: SERTRALINE 100 MG TAB PO SCH (09:16)
[2019-03-08] MEDS: QUEtiapine FUMARATE 25 MG TAB PO SCH ×3 (09:16→22:16)
[2019-03-08] MEDS: ASPIRIN 81 MG ENTERIC TAB PO SCH (09:16)
[2019-03-08] MEDS: QUEtiapine FUMARATE 200 MG TAB PO SCH ×3 (09:16→22:16)
[2019-03-08] MEDS: LORATADINE 10 MG TAB PO SCH (09:16)
[2019-03-08 18:23] VITALS: BP 129/73
[2019-03-09 06:50] VITALS: BP 140/78
[2019-03-09] MEDS: LORATADINE 10 MG TAB PO SCH (09:49)
[2019-03-09] MEDS: ASPIRIN 81 MG ENTERIC TAB PO SCH (09:49)
[2019-03-09] MEDS: QUEtiapine FUMARATE 200 MG TAB PO SCH ×3 (09:49→20:15)
[2019-03-09] MEDS: QUEtiapine FUMARATE 25 MG TAB PO SCH ×3 (09:49→20:15)
[2019-03-09] MEDS: SERTRALINE 100 MG TAB PO SCH (09:50)
[2019-03-09 18:00] VITALS: BP 124/69
--- NOTE | 2019-03-09 22:25 | MHIPNPDOC ---
[facility] Progress Note Progress Note DATE OF SERVICE: 03/09/19 HISTORY: 68-year-old female with history of schizoaffective disorder and non compliance with h/o of repeated admissions. She still is delusional, has magical thinking, sikh preoccupations and paranoid thoughts about someone poisoning the water and coffee in our Unit. VITAL SIGNS: See below. NEW TEST RESULTS: None. CURRENT MEDICATIONS: See below. MENTAL STATUS EXAMINATION: Patient is a 68-year old female, who is less delusional, her thoughts are more organized Speech: slurred (but improved), less tangential Language skills improving, she is less tangential Thought processes including: More organized, less tangential Thought content: Her paranoid delusions have decreased, she is not guarded, not defensive. Abstract reasoning, and computation:Poor abstract reasoning. Description of associations: Loose Description of abnormal or psychotic thoughts: Paranoid delusions, sikh preoccupations ( both, paranoid delusions and sikh preoccupations are less frequent and less intense) Judgment:. Improving (she has been taking her medications) Insight: Limited. Orientation: Oriented 2 (not to date and time) Recent and remote memory: Limited Attention span and concentration: Poor. Language: As above. Fund of knowledge:, Difficult to measure. Mood: euthymic Affect: congruent with mood, labile DIAGNOSES: 1. Schizoaffective disorder. 2. Reported drug use. 3. Stressors of living situation. ASSESSMENT: The patient has pretty much improved, she is happy today, she came to my office and she gave me one of her drawings. She has not reported paranoid delusions about people wanting to hurt her. She has been visible in the Unit, she is not violent/aggressive/suicidal/homicidal. She seems to be at her baseline. Tomorrow, [facility] staff will come to the Unit to check on her and evaluate if they feel she is ready to go back to [facility]. The patient is due for her next Invega Sustenna Injection on 03/16/19 MANAGEMENT PLAN: Continue medication at the present time and consider administering Invega Sustenna injection next week. TIME SPENT: 30 minutes. Vital Signs Vital Signs Date Time Temp Pulse Resp B/P (MAP) Pulse Ox O2 Delivery O2 Flow Rate FiO2 03/09/19 18:00 98.7 76 18 124/69 (87) Current Medications Current Medications Acetaminophen (Tylenol Tab) 650 mg Q6HP PRN PO HEADACHE or DISCOMFORT Last administered on 03/01/19at 10:42; Start 02/10/19 at 19:15 Al Hydrox/Mg Hydrox/Simethicone (Mylanta) 30 ml Q4HP PRN PO HEARTBURN/INDIGESTION Last administered on 02/19/19 15:06; Start 02/10/19 at 19:15 Aspirin (Ecotrin) 81 mg DAILY PO Last administered on 03/09/19 09:49; Start 02/23/19 at 09:00 Benzonatate (Tessalon Perles) 200 mg Q4HP PRN PO COUGH; Start 02/12/19 at 17:00 Benztropine Mesylate (Cogentin) 1 mg BID PO Last administered on 02/25/19 21:03; Start 02/12/19 at 09:00; Stop 02/26/19 at 07:54; Status DC Home Med (Med Rec Complete!) ASDIRECTED XX ; Start 02/10/19 at 12:00; Stop 02/10/19 at 12:02; Status DC Loratadine (Claritin) 10 mg DAILY PO Last administered on 03/09/19 09:49; Start 02/11/19 at 13:00 Lorazepam (Ativan) 2 mg STAT STAT PO Last administered on 02/10/19at 15:12; St art 02/10/19 at 14:59; Stop 02/10/19 at 15:00; Status DC Magnesium Hydroxide (Milk Of Magnesia) 30 ml DAILYPRN PRN PO CONSTIPATION; Start 02/10/19 at 19:15 Non-Formulary Medication ( See Comment Field Below ) SEE COMMENTS SECTION 1T@10 XX ; Start 02/26/19 at 10:00; Stop 02/26/19 at 10:00; Status DC Olanzapine (ZyPREXA) 5 mg QAM PO Last administered on 02/12/19at 08:14; Start 02/11/19 at 09:00; Stop 02/12/19 at 10:35; Status DC Ondansetron HCl (Zofran Odt) 4 mg Q6HP PRN PO NAUSEA OR VOMITING Last adm inistered on 03/06/19at 22:12; Start 02/22/19 at 21:00 Quetiapine Fumarate (SEROquel) 25 mg TID PO Last administered on 03/09/19 20:15; Start 03/04/19 at 16:00 Quetiapine Fumarate (SEROquel) 50 mg BID@0900,1600 PO Last administered on 02/18/19 08:28; Start 02/12/19 at 16:00; Stop 02/18/19 at 13:39; Status DC Quetiapine Fumarate (SEROquel) 75 mg QAM PO ; Start 02/13/19 at 09:00; Status UNV Quetiapine Fumarate (SEROquel) 100 mg BID@0900,1600 PO Last administered on 02/24/19at 10:05; Start 02/18/19 at 16:00; Stop 02/24/19 at 10:53; Status DC Quetiapine Fumarate (SEROquel) 150 mg QHS PO Last administered on 02/17/19at 20:56; Start 02/12/19 at 21:00; Stop 02/18/19 at 13:39; Status DC Quetiapine Fumarate (SEROquel) 200 mg BID@0900,1600 PO Last administered on 08:28; Start 02/24/19 at 16:00; Stop 02/25/19 at 09:14; Status DC Quetiapine Fumarate (SEROquel) 200 mg QHS PO Last administered on 02/22/19at 21:38; Start 02/18/19 at 21:00; Stop 02/24/19 at 10:53; Status DC Quetiapine Fumarate (SEROquel) 200 mg TID PO Last administered on 03/04/19at 09:07; Start 02/26/19 at 16:00; Stop 03/04/19 at 15:39; Status DC Quetiapine Fumarate (SEROquel) 200 mg TID PO Last administered on 03/09/19 20:15; Start 03/04/19 at 16:00 Quetiapine Fumarate (SEROquel) 300 mg BID@0900,1600 PO Last administered on 02/26/19 08:46; Start 02/25/19 at 16:00; Stop 02/26/19 at 14:17; Status DC Quetiapine Fumarate (SEROquel) 400 mg QHS PO ; Start 02/18/19 at 21:00; Stop 02/18/19 at 21:00; Status DC Sertraline HCl (Zoloft) 75 mg QAM PO Last administered on 02/16/19at 08:04; Start 02/12/19 at 09:00; Stop 02/18/19 at 13:38; Status DC Sertraline HCl (Zoloft) 150 mg QAM PO Last administered on 03/04/19at 09:06; Start 02/18/19 at 09:00; Stop 03/04/19 at 15:23; Status DC Sertraline HCl (Zoloft) 200 mg QAM PO Last administered on 03/09/19at 09:50; Start 03/05/19 at 09:00 Trazodone HCl (Desyrel) 50 mg QHSP PRN PO INSOMNIA; Start 02/10/19 at 19:15; Status Cancel Allergies Coded Allergies: No Known Allergies (Verified , 10/30/03) DANA ROSALES MD Mar 09, 2019 22:25
[2019-03-10 06:17] VITALS: BP 130/78
[2019-03-10] MEDS: SERTRALINE 100 MG TAB PO SCH ×2 (09:00→11:02)
[2019-03-10] MEDS: QUEtiapine FUMARATE 25 MG TAB PO SCH ×3 (09:04→20:01)
[2019-03-10] MEDS: QUEtiapine FUMARATE 200 MG TAB PO SCH ×3 (09:04→20:01)
[2019-03-10] MEDS: LORATADINE 10 MG TAB PO SCH (09:04)
[2019-03-10] MEDS: ASPIRIN 81 MG ENTERIC TAB PO SCH (09:04)
[2019-03-10] MEDS: BENZTROPINE 1 MG TAB PO SCH ×2 (15:19→20:01)
[2019-03-10 18:00] VITALS: BP 99/57
--- NOTE | 2019-03-10 20:34 | MHIPNPDOC ---
[facility] Progress Note Progress Note DATE OF SERVICE: 03/10/19 HISTORY: 68-year-old female with history of schizoaffective disorder and non compliance with h/o of repeated admissions. She still is delusional, has magical thinking, adventism preoccupations and paranoid thoughts about someone poisoning the water and coffee in our Unit. VITAL SIGNS: See below. NEW TEST RESULTS: None. CURRENT MEDICATIONS: See below. MENTAL STATUS EXAMINATION: Patient is a 68-year old female, who is less delusional, her thoughts are more organized Speech: slurred (but improved), less tangential, more organized Language skills improving Thought processes including: More organized, less tangential Thought content: Her paranoid delusions have decreased, she is not guarded, not defensive. Abstract reasoning, and computation:Poor abstract reasoning. Description of associations: Loose Description of abnormal or psychotic thoughts:She is not reporting paranoid delusions or adventism preoccupations at this time Judgment:. Improving (she has been taking her medications) Insight: Limited. Orientation: Oriented 2 (not to date and time) Recent and remote memory: Limited Attention span and concentration: Poor. Language: As above. Fund of knowledge:, Difficult to measure. Mood: euthymic Affect: congruent with mood, labile DIAGNOSES: 1. Schizoaffective disorder. 2. Marijuana use disorder 3. Stressors of living situation. ASSESSMENT: Keysha continues t be pleasant and cooperative. She is going tomorrow to [facility]. She has been stable. MANAGEMENT PLAN: Continue medication at the present time and consider administering Invega Sustenna injection next week. TIME SPENT: 30 minutes. Vital Signs Vital Signs Date Time Temp Pulse Resp B/P (MAP) Pulse Ox O2 Delivery O2 Flow Rate FiO2 03/10/19 18:00 97.7 104 16 99/57 (71) Current Medications Current Medications Acetaminophen (Tylenol Tab) 650 mg Q6HP PRN PO HEADACHE or DISCOMFORT Last administered on 03/01/19at 10:42; Start 02/10/19 at 19:15 Al Hydrox/Mg Hydrox/Simethicone (Mylanta) 30 ml Q4HP PRN PO HEARTBURN/INDIGESTION Last administered on 02/19/19at 15:06; Start 02/10/19 at 19:15 Aspirin (Ecotrin) 81 mg DAILY PO Last administered on 03/10/19at 09:04; Start 02/23/19 at 09:00 Benzonatate (Tessalon Perles) 200 mg Q4HP PRN PO COUGH; Start 02/12/19 at 17:00 Benztropine Mesylate (Cogentin) 1 mg BID PO Last administered on 02/25/19at 21:03; Start 02/12/19 at 09:00; Stop 02/26/19 at 07:54; Status DC Benztropine Mesylate (Cogentin) 1 mg TID PO Last administered on 03/10/19at 20:01; Start 03/10/19 at 16:00 Home Med (Med Rec Complete!) ASDIRECTED XX ; Start 02/10/19 at 12:00; Stop 02/10/19 at 12:02; Status DC Loratadine (Claritin) 10 mg DAILY PO Last administered on 03/10/19at 09:04; Start 02/11/19 at 13:00 Lorazepam (Ativan) 2 mg STAT STAT PO Last administered on 02/10/19at 15:12; Start 02/10/19 at 14:59; Stop 02/10/19 at 15:00; Status DC Magnesium Hydroxide (Milk Of Magnesia) 30 ml DAILYPRN PRN PO CONSTIPATION; Start 02/10/19 at 19:15 Non-Formulary Medication ( See Comment Field Below ) SEE COMMENTS SECTION 1T@10 XX ; Start 02/26/19 at 10:00; Stop 02/26/19 at 10:00; Status DC Olanzapine (ZyPREXA) 5 mg QAM PO Last administered on 02/12/19at 08:14; Start 02/11/19 at 09:00; Stop 02/12/19 at 10:35; Status DC Ondansetron HCl (Zofran Odt) 4 mg Q6HP PRN PO NAUSEA OR VOMITING Last administered on 03/06/19at 22:12; Start 02/22/19 at 21:00 Quetiapine Fumarate (SEROquel) 25 mg TID PO Last administered on 03/10/19at 20:01; Start 03/04/19 at 16:00 Quetiapine Fumarate (SEROquel) 50 mg BID@0900,1600 PO Last administered on 02/18/19at 08:28; Start 02/12/19 at 16:00; Stop 02/18/19 at 13:39; Status DC Quetiapine Fumarate (SEROquel) 75 mg QAM PO ; Start 02/13/19 at 09:00; Status UNV Quetiapine Fumarate (SEROquel) 100 mg BID@0900,1600 PO Last administered on 08/04at 10:05; Start 02/18/19 at 16:00; Stop 02/24/19 at 10:53; Status DC Quetiapine Fumarate (SEROquel) 150 mg QHS PO Last administered on 02/17/19at 20:56; Start 02/12/19 at 21:00; Stop 02/18/19 at 13:39; Status DC Quetiapine Fumarate (SEROquel) 200 mg BID@0900,1600 PO Last administered on 02/25/19at 08:28; Start 02/24/19 at 16:00; Stop 02/25/19 at 09:14; Status DC Quetiapine Fumarate (SEROquel) 200 mg QHS PO Last administered on 02/22/19at 21:38; Start 02/18/19 at 21:00; Stop 02/24/19 at 10:53; Status DC Quetiapine Fumarate (SEROquel) 200 mg TID PO Last administered on 03/04/19at 09:07; Start 02/26/19 at 16:00; Stop 03/04/19 at 15:39; Status DC Quetiapine Fumarate (SEROquel) 200 mg TID PO Last administered on 03/10/19at 20:01; Start 03/04/19 at 16:00 Quetiapine Fumarate (SEROquel) 300 mg BID@0900,1600 PO Last administered on 02/26/19at 08:46; Start 02/25/19 at 16:00; Stop 02/26/19 at 14:17; Status DC Quetiapine Fumarate (SEROquel) 400 mg QHS PO ; Start 02/18/19 at 21:00; Stop 02/18/19 at 21:00; Status DC Sertraline HCl (Zoloft) 75 mg QAM PO Last administered on 02/16/19at 08:04; Start 02/12/19 at 09:00; Stop 02/18/19 at 13:38; Status DC Sertraline HCl (Zoloft) 150 mg QAM PO Last administered on 03/04/19at 09:06; Start 02/18/19 at 09:00; Stop 03/04/19 at 15:23; Status DC Sertraline HCl (Zoloft) 200 mg QAM PO Last administered on 03/10/19at 11:02; Start 03/05/19 at 09:00 Trazodone HCl (Desyrel) 50 mg QHSP PRN PO INSOMNIA; Start 02/10/19 at 19:15; Status Cancel Allergies Coded Allergies: No Known Allergies (Verified , 10/30/03) DANA ROSALES MD Mar 10, 2019 20:34
[2019-03-11 06:11] VITALS: BP 117/62
[2019-03-11 07:43] LABS: CHOLESTEROL RISK RATIO 3.845 (<5)
[2019-03-11] MEDS: SERTRALINE 100 MG TAB PO SCH (08:09)
[2019-03-11] MEDS: QUEtiapine FUMARATE 25 MG TAB PO SCH (08:09)
[2019-03-11] MEDS: LORATADINE 10 MG TAB PO SCH (08:09)
[2019-03-11] MEDS: QUEtiapine FUMARATE 200 MG TAB PO SCH (08:09)
[2019-03-11] MEDS: ASPIRIN 81 MG ENTERIC TAB PO SCH (08:09)
[2019-03-11] MEDS: BENZTROPINE 1 MG TAB PO SCH (08:09)
[2019-03-11] MEDS ORDERED: ASPI81TAEC PO (09:57)
[2019-03-11] MEDS ORDERED: SERT-138 PO (09:57)
[2019-03-11] MEDS ORDERED: BENZ-52 PO (09:57)
[2019-03-11] MEDS ORDERED: QUET1TAB9 PO (09:57)
[2019-03-11] MEDS ORDERED: ONDA4TAB6 PO (09:57)
[2019-03-11] MEDS ORDERED: QUET1TAB7 PO (09:57)
--- NOTE | 2019-03-12 23:56 | ECGEPIP ---
[facility] Test Date: 2019-03-11 Pat Name: DEREJE RAY Department: Room: [place] [address] Gender: Female Work And Family Life Consultant: : 1950 Requested By: DANA Akhtar Order Number: [id number] Reading MD: Luis F Shoemaker Measurements Intervals [place] Rate: 80 P: 11 [place]: 149 QRS: 66 QRSD: 84 T: 66 QT: 370 QTc: 429 Interpretive Statements SINUS RHYTHM NO SIGNIFICANT CHANGES. COMPARED TO THE 2 TRACINGS IN THE SYSTEM Electronically Signed on 03-12-2019 23:56:06 EDT by Luis F Shoemaker
--- NOTE | 2019-03-18 22:53 | MHDSPDOC ---
[facility] Discharge Summary Discharge Summary DATE OF ADMISSION: February 10, 2019 at 19:06 DATE OF DISCHARGE: Mar 11, 2019 at 10:42 DISCHARGE DIAGNOSES: 1. Schizoaffective disorder 2. Marijuana use disorder REASON FOR ADMISSION: Pt was brought into the ED after calling 911, by [facility] PARVEEN Pinedo #[id number], per pt. Pt reports, "I am feeling depressed and sad, not suicidal," Pt presents with paranoid delusions, "people are messing with my Gatorade, and my medications, have not been taking them for over a week." Pt reports throwing her medications out one week ago, the voices are from a "Orthodoxy science man, he is telling me to masturbate, because he wants to see me do it." Pt states she is not sleeping well, and is a "finicky eater," presents tearfully, denies SI, and HI, drinks wine and smokes pot, sees a man that sneaks into her apartment and messes with her mind, doesn't like the medications at night, "the big one almost stops my heart." Pt's speech is tangential; she is soft spoken, tearful, good eye contact, disheveled, does not know her Y doctor's name she sees Terrie Kellogg as a therapist". Saw Samira today and she says she called "the inspector filters" because there's a man that has been harassing her. He is her neighbor, she says. then, she narrates a confusing story, including the fact that her sheets have snake prints on them, she doesn't know if they flew in there, like witches. While she is telling me all of this, she is holding a bible close to her heart and terfully, she says she didn't have bible at home because it could have protected from them. She wants to know if she has been receiving the right medications or if she has been poisoned. CONSULTANTS INVOLVED: Hospitalist TREATMENT AND PROGRESS ON THE UNIT : Upon initial evaluation the patient was delusional, paranoid, sad, anxious. She said she felt unsafe at home ecause there was a girl, her name was Zaira and she came in and out of her apartment. She said she knew Zaira had lived in her apartment before. She also mentioned a man had been coming into her apartment, she said it was a neighbor. She was resistant to take her medications, she made excuses for not taking them. She had stopped taking her medications approximately one week before she was brought to the Hospital. I suggested to her that she could take Seroquel because it would help her relax, sleep well and feel safe, because it would decrease her hallucinations but she said she didn't want to feel sleepy, she said she likes to stay awake. During her first days at the Unit she came to see me at my office holding a bible, it made her feel safe against evil forces that she was sure were trying to harm her. She improved because she eventually accepted to take Seroquel and this was increased to 200 mgs PO TID but pretty soon she became paranoid, she thought that 2 staff memebers were trying to pison her water, her coffee and she said she had seen them put a little pill in those beverages. When the medication was increased to 225 mgs PO TID she showed a big improvement, so much that she told me the story about her failed marriage and how her had left her for another woman. The inital plan was to send her to [facility] and an administrative hearing took place but she had improved and I told Mrs. Artis (Labor Relations Consultant) and Ms. Horan Dinora that I thought she had improved and thought hospitalization was not needed anymore. She was told she was going to go back home soon and her mood and affect improved too. HOSPITAL COURSE:As above DISCHARGE ASSESSMENT: Upon her discharge, her mood and affect had improved, the levels of anxiety and depression had decreased, she was not extremely paranoid, she was not hallucinating, not responding to internal stimuli. She was not religiously preoccupied, she said she had not seen anyone poisoning the coffee or the water. She had responded well to her medications, she was given Invega Sustenna during her first days of hospitalization at the Unit and she had been receiving Seroquel 225 mgs PO TID. She received Cogentin to prevent EPS and Zoloft 200 mgs PO QD. She was due to receive her Invega Sustenna 234 mgs IM on March 16. She was happy to go home, she was future orientated, she was not suicidal, not homicidal. She was at her baseline of psychosis. MENTAL STATUS EXAMINATION ON DISCHARGE: Patient is a 68-year old female, who is less delusional, her thoughts are more organized Speech: slurred (but improved), less tangential, more organized Language skills improving Thought processes including: More organized, less tangential Thought content: Her paranoid delusions have decreased, she is not guarded, not defensive. Abstract reasoning, and computation:Poor abstract reasoning. Description of associations: Loose Description of abnormal or psychotic thoughts:She is not reporting paranoid delusions or taoist preoccupations at this time Judgment:. Improving (she has been taking her medications) Insight: Limited. Orientation: Oriented 2 (not to date and time) Recent and remote memory: Limited Attention span and concentration: Poor. Language: As above. Fund of knowledge:, Difficult to measure. Mood: euthymic Affect: congruent with mood, full, reactive, appropriate MEDICATIONS ON DISCHARGE: Scheduled Aspirin (Aspirin EC) 81 Mg Tablet.dr, 81 MG PO DAILY for heart disease preventive, #7 Benztropine Mesylate (Benztropine Mesylate) 1 Mg Tablet, 1 MG PO TID for extrapyramidal side effects, #21 Loratadine (Claritin) 10 Mg Tablet, 10 MG PO DAILY for SEASONAL ALLERGIES, #7 Paliperidone Palmitate (Invega Sustenna) 234 Mg/1.5 Ml Syringe, 234 MG IM QMONTH for psychosis, #1 DUE March. Quetiapine Fumarate (Quetiapine Fumarate) 200 Mg Tablet, 200 MG PO TID for psychosis, #21 Quetiapine Fumarate (Quetiapine Fumarate) 25 Mg Tablet, 25 MG PO TID for psychosis, #21 Sertraline HCl (Sertraline HCl) 100 Mg Tablet, 200 MG PO QAM for depression, #14 Scheduled PRN Ondansetron (Ondansetron Odt) 4 Mg Tab.rapdis, 4 MG PO Q6HP PRN for NAUSEA OR VOMITING, #28 PLAN/FOLLOWUP ARRANGEMENTS: Follow Up Care Education Label * Mental Health Appt 1 * [facility] * Established With This Provider Yes * Therapist Amanda * Date Mar 16, 2019 * Time 10:00 * Address of Clinic or Practice [facility] * Follow Up Care Education Label * Medical * Medical Follow Up Dr Tj Mcdonough * Established With This Provider Yes * Therapist DR. MCDONOUGH * Date Mar 31, 2019 * Time 14:00 * Address of Clinic or Practice [address] [place] [address] [address] [place] [address] * Follow Up Care Education Label * Care Coordination * Care Coordination/Case Management/Supervision [facility] * Established With This Provider Yes * Personal Care Aide Afia Joseph * Follow Up Care Education Label * Mental Health Appt 2 * Mental Health [facility] * Therapist Susi * Date Mar 23, 2019 * Time 11:00 * Address of Clinic or Practice [facility] * Phone Number [phone] * Additional information Please talk to provider regarding Ingrezza or other options for pt's tardive dysknesia. Follow Up Care Education Label * Mental Health Appt 3 * Mental [facility] * Established With This Provider Yes * Therapist Carmen * Date Mar 13, 2019 * Time 11:30 * Address of Clinic or Practice [facility] * Phone Number [phone] * Additional information appointment for injection Follow Up Care Education Label * Case Management * Care Coordination/Case Management/Supervision [facility] * Established With This Provider Yes * Therapist Rose * Date Mar 16, 2019 * Time 12:30 * * Additional information The amount of time spent in the coordination of care for this patient was approximately 30 minutes. Medications Scheduled Aspirin (Aspirin EC) 81 Mg Tablet.dr, 81 MG PO DAILY for heart disease preventive, #7 Benztropine Mesylate (Benztropine Mesylate) 1 Mg Tablet, 1 MG PO TID for extrapyramidal side effects, #21 Loratadine (Claritin) 10 Mg Tablet, 10 MG PO DAILY for SEASONAL ALLERGIES, #7 Paliperidone Palmitate (Invega Sustenna) 234 Mg/1.5 Ml Syringe, 234 MG IM QMONTH for psychosis, #1 DUE March. Quetiapine Fumarate (Quetiapine Fumarate) 200 Mg Tablet, 200 MG PO TID for psych osis, #21 Quetiapine Fumarate (Quetiapine Fumarate) 25 Mg Tablet, 25 MG PO TID for psychosis, #21 Sertraline HCl (Sertraline HCl) 100 Mg Tablet, 200 MG PO QAM for depression, #14 Scheduled PRN Ondansetron (Ondansetron Odt) 4 Mg Tab.rapdis, 4 MG PO Q6HP PRN for NAUSEA OR VOMITING, #28 Allergies Coded Allergies: No Known Allergies (Verified , 10/30/03) DANA ROSALES MD Mar 18, 2019 22:49
== END 2019-03-11 10:42 | disposition home or self-care (01) | DRG 885 ==
LOC: M ED 10:29 → M ED INP 19:06 → M PSY 02-11 02:00
PROVIDERS: ADMIT Psychiatry & Neurology Psychiatry; ATTEND Psychiatry & Neurology Psychiatry
DX: F25.9 Schizoaffective disorder, unspecified (principal); F12.90 Cannabis use, unspecified, uncomplicated; Z79.82 Long term (current) use of aspirin; Z79.899 Other long term (current) drug therapy

== ENCOUNTER 2019-07-07 11:00 | Inpatient (IN) | payer MEDICARE, OTHER ==
[~2019-07-07] VITALS: Ht 170.2 cm; Wt 74.3 kg
[~2019-07-07 11:00] MED LIST changes: +ASPI81TAEC PO; +CLAR10TA7 PO; +DIVA500T94 PO; +FLUO20CA8 PO; +OLAN5TAB PO; +ONDA4TAB6 PO; +QUET1TAB7 PO; +QUET200T2 PO; +QUET5TAB PO; +SERT-138 PO; +SERT25TA21 PO
[2019-07-07] MEDS ORDERED: ARIP1TAB6 PO (11:35)
[2019-07-07] MEDS ORDERED: SERT-138 PO (11:35)
[2019-07-07 11:40] LABS: HEMATOCRIT 40.4 % (36.0-47.0); HEMOGLOBIN 13.2 g/dl (12.0-15.5); MEAN CORPUSCULAR HEMOGLOBIN 29.9 pg (27.0-33.0); MEAN CORPUSCULAR HGB CONC 32.7 g/dl (32.0-36.5); MEAN CORPUSCULAR VOLUME 91.6 fl (80.0-96.0); PLATELET COUNT, AUTOMATED 200 10^3/uL (150-450); RED BLOOD COUNT 4.41 10^6/uL (4.00-5.40); WHITE BLOOD COUNT 6.8 10^3/uL (4.0-10.0)
[2019-07-07] MEDS ORDERED: ACETAMINOPHEN TAB 650MG DOSE (2X325MG) PO ONE (12:00)
[2019-07-07 12:13] LABS: ACETAMINOPHEN LEVEL < 2.0 UG/ML (10.0-30.0); ALBUMIN 3.5 GM/DL (3.2-5.2); ALT/SGPT 15 U/L (12-78); BILIRUBIN,DIRECT < 0.1 MG/DL (0.0-0.2); BILIRUBIN,TOTAL 0.5 MG/DL (0.2-1.0); BLOOD UREA NITROGEN 14 MG/DL (7-18); CALCIUM LEVEL 8.8 MG/DL (8.8-10.2); CARBON DIOXIDE LEVEL 24 MEQ/L (21-32); CHLORIDE LEVEL 107 MEQ/L (98-107); CREATININE FOR GFR 0.75 MG/DL (0.55-1.30); ETHYL ALCOHOL (ETHANOL) < 0.003 % (0.000-0.010); GLOMERULAR FILTRATION RATE > 60.0 (>45); GLUCOSE, FASTING 125 MG/DL (70-100); POTASSIUM SERUM 4.3 MEQ/L (3.5-5.1); SALICYLATE LEVEL 3.6 MG/DL (5.0-30.0); SODIUM LEVEL 139 MEQ/L (136-145); TOTAL PROTEIN 7.1 GM/DL (6.4-8.2)
[2019-07-07 12:16] LABS: AMPHETAMINES LEVEL URINE NEGATIVE (NEGATIVE); BARBITURATES URINE NEGATIVE (NEGATIVE); BENZODIAZEPINES URINE NEGATIVE (NEGATIVE); CANNABINOIDS URINE NEGATIVE (NEGATIVE); COCAINE METABOLITE URINE NEGATIVE (NEGATIVE); METHADONE URINE NEGATIVE (NEGATIVE); OPIATES URINE NEGATIVE (NEGATIVE); PHENCYCLIDINE URINE NEGATIVE (NEGATIVE)
[2019-07-07] MEDS ORDERED: MOM 30ML SUSPENSION UDC PO PRN (13:45)
[2019-07-07] MEDS ORDERED: MAALOX 30 ML SUSP *UDC PO PRN (13:45)
[2019-07-07 16:34] VITALS: BP 146/75
[2019-07-07] MEDS: traZODone 50 MG TAB PO PRN (23:11)
[2019-07-08 07:47] VITALS: BP 144/65
[2019-07-08] MEDS ORDERED: ADACEL/BOOSTRIX VACCINE (DIPHTH/PERTUSS/ACELL/TETANUS)0.5ML SYR (90715) IM PRN (09:00)
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
[2019-07-08] MEDS: ACETAMINOPHEN TAB 650MG DOSE (2X325MG) PO PRN (11:07)
[2019-07-08] MEDS ORDERED: LORATADINE 10 MG TAB PO ONE (13:15)
[2019-07-08 13:48] LABS: BASO % 0.4 % (0.0-1.0); EOS # 0.3 10^3/uL (0.0-0.5); EOS % 4.8 % (0.0-3.0); HEMATOCRIT 39.9 % (36.0-47.0); HEMOGLOBIN 12.7 g/dl (12.0-15.5); LYMPH # 1.8 10^3/uL (1.5-5.0); LYMPH % 25.5 % (24.0-44.0); MEAN CORPUSCULAR HEMOGLOBIN 29.2 pg (27.0-33.0); MEAN CORPUSCULAR HGB CONC 31.8 g/dl (32.0-36.5); MEAN CORPUSCULAR VOLUME 91.7 fl (80.0-96.0); MONO # 0.8 10^3/uL (0.0-0.8); MONO % 11.8 % (0.0-5.0); NEUTROPHILS # 3.9 10^3/uL (1.5-8.5); NEUTROPHILS % 57.2 % (36.0-66.0); PLATELET COUNT, AUTOMATED 206 10^3/uL (150-450); RED BLOOD COUNT 4.35 10^6/uL (4.00-5.40); WHITE BLOOD COUNT 6.9 10^3/uL (4.0-10.0)
[2019-07-08 14:12] LABS: ALBUMIN 3.3 GM/DL (3.2-5.2); ALT/SGPT 21 U/L (12-78); BILIRUBIN,TOTAL 0.3 MG/DL (0.2-1.0); BLOOD UREA NITROGEN 18 MG/DL (7-18); CALCIUM LEVEL 8.9 MG/DL (8.8-10.2); CARBON DIOXIDE LEVEL 28 MEQ/L (21-32); CHLORIDE LEVEL 104 MEQ/L (98-107); CREATININE FOR GFR 0.92 MG/DL (0.55-1.30); GLOMERULAR FILTRATION RATE > 60.0 (>45); GLUCOSE, FASTING 90 MG/DL (70-100); POTASSIUM SERUM 4.1 MEQ/L (3.5-5.1); SODIUM LEVEL 138 MEQ/L (136-145); TOTAL PROTEIN 7.5 GM/DL (6.4-8.2)
[2019-07-08 17:01] VITALS: BP 142/97
[2019-07-08] MEDS: cloZAPine 25 MG TAB (S0136) PO SCH (21:00)
[2019-07-09 06:37] VITALS: BP 125/61
[2019-07-09] MEDS: LORATADINE 10 MG TAB PO SCH (08:20)
[2019-07-09] MEDS ORDERED: FLUBLOK(EGG FREE)(QUAD)INFLUENZA VACC 0.5ML SYRINGE (90682)18YRS&OLDER IM ONE (09:00)
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
[2019-07-09] MEDS ORDERED: PALIPERIDONE PALMITATE 234MG/1.5ML INJ (INVEGA)(J2426)(FREE PSY INPT ONLY) IM ONE (12:00)
[2019-07-09 18:00] VITALS: BP 128/78
[2019-07-09] MEDS: cloZAPine 25 MG TAB (S0136) PO SCH ×2 (20:27→22:32)
[2019-07-10 06:20] VITALS: BP 128/71
[2019-07-10] MEDS: LORATADINE 10 MG TAB PO SCH (09:00)
--- NOTE | 2019-07-10 09:36 | HPEPDOC ---
General Date of Admission Jul 07, 2019 at 13:45 Date of Service: Jul 08, 2019 Attending Physician: DAIJA GILMAN MD Chief Complaint The patient is a 68-year-old female admitted with a reason for visit of Schizoaffective Disorder. Source: Patient, RN/MD Exam Limitations: Mild cognitive slowing Timing/Duration: Unsure Severity: Moderate Associated Symptoms: Headaches, Increased agitation History of Present Illness Consultation for physical exam. Referred by inpatient mental health unit 68-year-old female seen today in inpatient mental health unit in the exam room with complaints of headache, constipation, and insomnia. She has significant medical history of psychosis, back pain, COPD, asthma, insomnia, urinary stress incontinence, depression, claustrophobia, cataracts, anxiety and schizophrenia. She denies chest pain, dizziness, shortness of breath, diarrhea, nausea, vomiting. Home Medications Scheduled Aripiprazole (Aripiprazole) 5 Mg Tablet, 1 TAB PO DAILY, (Reported) Aspirin (Aspirin EC) 81 Mg Tablet.dr, 81 MG PO DAILY for heart disease preventive Benztropine Mesylate (Benztropine Mesylate) 1 Mg Tablet, 1 MG PO TID for extrapyramidal side effects Loratadine (Claritin) 10 Mg Tablet, 10 MG PO DAILY for SEASONAL ALLERGIES Paliperidone Palmitate (Invega Sustenna) 234 Mg/1.5 Ml Syringe, 234 MG IM QMONTH for psychosis DUE March. Quetiapine Fumarate (Quetiapine Fumarate) 200 Mg Tablet, 200 MG PO TID for psychosis Quetiapine Fumarate (Quetiapine Fumarate) 25 Mg Tablet, 25 MG PO TID for psychosis Sertraline HCl (Sertraline HCl) 100 Mg Tablet, 100 MG PO BID, (Reported) Scheduled PRN Ondansetron (Ondansetron Odt) 4 Mg Tab.rapdis, 4 MG PO Q6HP PRN for NAUSEA OR VOMITING Allergies Coded Allergies: No Known Allergies (Verified , 10/30/03) Past Medical History Medical History See HPI Surgical History Hernia repair, left wrist fracture and repair as child Family History Significant Family History: No pertinent family hx (review with patient, not pertinent) Social History * Smoker: current smoker, cigarettes Alcohol: Denies Drugs: prescription drugs Recent Travel/Sick Contacts: Denies: Recent travel, Recent sick contacts Psychosocial History: Anxiety, Decreased mood, Nitish SI and HI, Depression, Emotional problems, Mood disorder NOS, Schizophrenia, Other (psychosis) A-FIB/CHADSVASC A-FIB History Current/History of A-Fib/PAF?: No Review of Systems Constitutional: Reports: Malaise; Denies: Chills, Fever, Night Sweats, Weakness, Fatigue, Weight Loss, Lethargy, Other Eyes: Reports: Pain; Denies: Vision change, Conjunctivae inflammation, Eyelid inflammation, Redne ss, Other ENT: Reports: Head Aches Skin: Reports: Itching, Dry; Denies: Rash, Lesions, Jaundice, Bruising, Breakdown, Nail Changes, Other Pulmonary: Denies: Dyspnea, Cough, Pleuritic Chest Pain, Other Symptoms Cardiovascular: Denies: Chest Pain, Palpitations, Orthopnea, Paroxysmal Noc. Dyspnea, Edema, Lt Headedness, Other Symptoms Gastrointestinal: Reports: Abdominal Pain, Constipation Genitourinary: Denies: Dysuria, Frequency, Incontinence, Hematuria, Retention, Other Symptoms Hematologic: Denies: Bruising, Bleeding Excessively, Petecchia, Purpura, Enlarged Lymph Nodes, Other Hematologic Endocrine: Denies: Polydipsia, Polyphagia, Polyuria, Heat Intolerance, Cold Intolerance, Other Endocrine Sx Musculoskeletal: Denies: Neck Pain, Back Pain, Shoulder Pain, Arm Pain, Hand Pain, Leg Pain, Foot Pain, Joint Pain, Muscle Pain, Spasms, Other Symptoms Neurological: Reports: Confusion Psych: Reports: Anxiety, Memory Issues Physical Examination General Exam: Positive: Alert, Cooperative, Mild Distress Eye Exam: Positive: PERRLA, Conjunctiva & lids normal, EOMI ENT Exam: Positive: Atraumatic, Mucous membr. moist/pink, Pharynx Normal, Other ENT (no teeth top manible) Neck Exam: Positive: Supple, +2 carotid pulse wo bruit Chest Exam: Positive: Clear to auscultation, Normal air movement Heart Exam: Positive: Rate Normal, Normal S1, Normal S2 Abdomen Exam: Positive: Normal bowel sounds, Tenderness (LLQ) Skin Exam: Positive: Nl turgor and temperature, Pruritus Neuro Exam: Positive: Normal Gait, Strength at 5/5 X4 ext, Cranial Nerves 3-12 NL, Other (speech, jumbled due to missing top teeth) Psych Exam: Positive: Anxiety, Other (oriented 2) Vital Signs Vital Signs Date Time Temp Pulse Resp B/P (MAP) Pulse Ox O2 Delivery O2 Flow Rate FiO2 07/10/19 06:20 98.2 68 18 128/71 (90) 07/07/19 16:34 98 Room Air Problems (1) Psychosis Status: Acute Response to Treatment: Progressing Discussed With: Nurse, Patient Problem Specific Plan: Monitor Clinically Problem Text: 68-year-old female seen today in inpatient mental health unit in the exam room with complaints of headache, constipation, and insomnia. Psychosis (relapse)acute on chronic Schizophreniachronic Plan Continue inpatient mental health treatment/recommendations Constipation acute Bisacodyl EC 10 mg by mouth twice a day; Senokot-S 1 by mouth twice a day MiraLAX 17 g daily Increase water intake Headache acute Tylenol 650 mg as needed Elevated blood pressure without hypertension diagnosis Monitor vital signs, blood pressure Low-salt diet Chronic back pain Tylenol GERD chronic Protonix DR 40 mg by mouth daily COPD/asthmachronic Ipratropium bromide as needed for shortness of breath, wheezing, cough Inhaler, Advair as needed, incentive spirometry, encourage patient to use Incontinence, stresschronic Oxybutynin 5 mg by mouth twice a day trial DVT prophylaxis not needed. Patient is ambulatory pulses. Will monitor patient for pain, swelling, and redness Discharge: Pending inpatient mental health unit Plan / VTE VTE Prophylaxis Ordered?: No VTE Exclusion Mechanical Proph: Low Risk for VTE VTE Exclusion Pharmacological: At Low Risk for VTE Plan Diet: Continue Current Activity: Continue Current ROB SANTOS Jul 10, 2019 09:36
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
[2019-07-10 18:00] VITALS: BP 117/66
[2019-07-10] MEDS ORDERED: SENOKOT S TAB PO PRN (18:00)
[2019-07-10] MEDS ORDERED: IPRATROPIUM 0.5MG/ALBUTEROL 2.5MG INH SOL UD 3ML (DUONEB)(J7620) NEB PRN (18:00)
[2019-07-10] MEDS ORDERED: ANALGESIC BALM CRM 120 GM TOP PRN (18:00)
[2019-07-10] MEDS: cloZAPine 25 MG TAB (S0136) PO SCH (21:00)
[2019-07-10] MEDS: PANTOPRAZOLE 40MG TAB (PROTONIX) PO SCH (21:00)
[2019-07-10] MEDS: ADVAIR HFA 115/21MCG INHALER INH SCH (21:00)
[2019-07-10] MEDS: BISACODYL 5 MG TAB PO SCH (21:00)
[2019-07-10] MEDS: ACETAMINOPHEN TAB 650MG DOSE (2X325MG) PO PRN (22:07)
[2019-07-11 06:43] VITALS: BP 112/66
[2019-07-11] MEDS: LORATADINE 10 MG TAB PO SCH ×2 (11:15→11:38)
[2019-07-11] MEDS: BISACODYL 5 MG TAB PO SCH ×2 (11:15→21:00)
[2019-07-11] MEDS: ADVAIR HFA 115/21MCG INHALER INH SCH ×3 (11:15→21:37)
--- NOTE | 2019-07-11 15:42 | MHIPN ---
DATE: 07/11/2019 The patient today states that she is not doing good. She is actually showing me some article that she cut out from the newspaper, and the article says something about excessive brain activity causing short half-life. She tells me that her thinking is allie fast, and she knows that is not good. She remains very delusional, however. She is telling me that something happened to her head so many years ago, and she should have a physical exam for that. She is noted to still be very belligerent and delusional that others are stealing food from her and requiring a lot of redirection. MENTAL STATUS EXAMINATION: She is alert and oriented times three. Her speech in the unit quite pressured, and she does have slight of ideas. She says that "I'm not good." Affect is labile. She is delusional. Her concentration is poor. Insight and judgment poor. DIAGNOSIS: Schizoaffective disorder, type I, manic with psychotic symp[toms. TREATMENT PLAN: At this point, we will continue to monitor the patient for psychotic symptoms, labile affect, and she has been refusing her medications, and attending feels that most likely she will be needing treatment over objection. TRAVIS
[2019-07-11 16:10] VITALS: BP 138/85
[2019-07-11] MEDS: OLANZapine ORAL DISINTEGRATING TAB 5MG PO PRN (18:25)
[2019-07-11] MEDS: PANTOPRAZOLE 40MG TAB (PROTONIX) PO SCH ×2 (21:00→21:37)
[2019-07-11] MEDS: cloZAPine 25 MG TAB (S0136) PO SCH (21:37)
[2019-07-12] MEDS: ACETAMINOPHEN TAB 650MG DOSE (2X325MG) PO PRN (01:10)
[2019-07-12 06:26] VITALS: BP 124/64
[2019-07-12] MEDS: OLANZapine ORAL DISINTEGRATING TAB 5MG PO PRN (07:02)
[2019-07-12] MEDS: BISACODYL 5 MG TAB PO SCH ×2 (09:00→21:00)
[2019-07-12] MEDS: LORATADINE 10 MG TAB PO SCH (09:16)
[2019-07-12] MEDS: ADVAIR HFA 115/21MCG INHALER INH SCH ×2 (09:16→21:00)
[2019-07-12 16:24] VITALS: BP 127/76
[2019-07-12] MEDS: cloZAPine 25 MG TAB (S0136) PO SCH (21:00)
[2019-07-12] MEDS: PANTOPRAZOLE 40MG TAB (PROTONIX) PO SCH (21:00)
[2019-07-13] MEDS: ADVAIR HFA 115/21MCG INHALER INH SCH ×2 (08:16→20:28)
[2019-07-13] MEDS: LORATADINE 10 MG TAB PO SCH (08:16)
[2019-07-13] MEDS: BISACODYL 5 MG TAB PO SCH ×2 (08:16→20:27)
[2019-07-13 16:00] VITALS: BP 124/76
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
[2019-07-13] MEDS: traZODone 50 MG TAB PO PRN (20:25)
[2019-07-13] MEDS: PANTOPRAZOLE 40MG TAB (PROTONIX) PO SCH (20:27)
[2019-07-13] MEDS ORDERED: cloZAPine 25 MG TAB (S0136) PO SCH (21:00)
[2019-07-14] MEDS: OLANZapine ORAL DISINTEGRATING TAB 5MG PO PRN (04:14)
[2019-07-14 06:35] VITALS: BP 139/85
[2019-07-14] MEDS: LORATADINE 10 MG TAB PO SCH (09:30)
[2019-07-14] MEDS: BISACODYL 5 MG TAB PO SCH ×2 (09:30→21:00)
[2019-07-14] MEDS: ADVAIR HFA 115/21MCG INHALER INH SCH ×2 (09:30→20:08)
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
[2019-07-14] MEDS ORDERED: PALIPERIDONE PALMITATE 234MG/1.5ML INJ (INVEGA)(J2426)(FREE PSY INPT ONLY) IM ONE ×2 (13:45→15:00)
[2019-07-14 16:10] VITALS: BP 134/78
[2019-07-14] MEDS ORDERED: SENOKOT S TAB PO PRN (16:30)
[2019-07-14] MEDS: traZODone 50 MG TAB PO PRN (20:08)
[2019-07-14] MEDS: PANTOPRAZOLE 40MG TAB (PROTONIX) PO SCH (21:00)
[2019-07-15 06:34] VITALS: BP 121/66
[2019-07-15] MEDS: BISACODYL 5 MG TAB PO SCH ×2 (09:00→20:30)
[2019-07-15] MEDS: ADVAIR HFA 115/21MCG INHALER INH SCH ×2 (09:44→20:30)
[2019-07-15] MEDS: LORATADINE 10 MG TAB PO SCH (09:44)
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
[2019-07-15 16:54] VITALS: BP 111/82
[2019-07-15] MEDS ORDERED: ALBUTEROL 90 MCG/ACT 8GM HFA INHALER INH PRN (18:15)
[2019-07-15] MEDS: PANTOPRAZOLE 40MG TAB (PROTONIX) PO SCH (20:30)
[2019-07-16 06:19] VITALS: BP 104/55
[2019-07-16] MEDS: ADVAIR HFA 115/21MCG INHALER INH SCH ×2 (09:13→20:29)
[2019-07-16] MEDS: LORATADINE 10 MG TAB PO SCH (09:13)
[2019-07-16] MEDS: BISACODYL 5 MG TAB PO SCH ×2 (09:13→20:28)
[2019-07-16] MEDS: ACETAMINOPHEN TAB 650MG DOSE (2X325MG) PO PRN (09:15)
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
[2019-07-16 18:00] VITALS: BP 119/72
[2019-07-16] MEDS: PANTOPRAZOLE 40MG TAB (PROTONIX) PO SCH (20:29)
[2019-07-17 07:00] VITALS: BP 130/67
[2019-07-17] MEDS: ACETAMINOPHEN TAB 650MG DOSE (2X325MG) PO PRN ×2 (07:43→14:36)
[2019-07-17] MEDS: LORATADINE 10 MG TAB PO SCH (08:58)
[2019-07-17] MEDS: BISACODYL 5 MG TAB PO SCH ×2 (08:59→21:00)
[2019-07-17] MEDS: ADVAIR HFA 115/21MCG INHALER INH SCH ×2 (09:00→21:00)
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
[2019-07-17 16:07] VITALS: BP 124/59
[2019-07-17] MEDS: PANTOPRAZOLE 40MG TAB (PROTONIX) PO SCH (21:00)
[2019-07-18 06:59] VITALS: BP 102/56
[2019-07-18] MEDS: LORATADINE 10 MG TAB PO SCH (08:42)
[2019-07-18] MEDS: BISACODYL 5 MG TAB PO SCH ×2 (08:43→20:58)
[2019-07-18] MEDS: ADVAIR HFA 115/21MCG INHALER INH SCH ×2 (08:43→20:58)
[2019-07-18 16:11] VITALS: BP 117/70
[2019-07-18] MEDS: PANTOPRAZOLE 40MG TAB (PROTONIX) PO SCH (20:58)
[2019-07-19 06:41] VITALS: BP 133/89
[2019-07-19] MEDS: ACETAMINOPHEN TAB 650MG DOSE (2X325MG) PO PRN (07:18)
[2019-07-19] MEDS: BISACODYL 5 MG TAB PO SCH ×2 (09:00→20:54)
[2019-07-19] MEDS: ADVAIR HFA 115/21MCG INHALER INH SCH ×2 (09:16→20:55)
[2019-07-19] MEDS: LORATADINE 10 MG TAB PO SCH (09:16)
[2019-07-19 16:24] VITALS: BP 123/84
[2019-07-19] MEDS: PANTOPRAZOLE 40MG TAB (PROTONIX) PO SCH (20:54)
[2019-07-20] MEDS: ADVAIR HFA 115/21MCG INHALER INH SCH (09:00)
[2019-07-20] MEDS: BISACODYL 5 MG TAB PO SCH (09:00)
[2019-07-20] MEDS: LORATADINE 10 MG TAB PO SCH (09:28)
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
[2019-07-20] MEDS ORDERED: CLAR10TA7 PO (15:01)
[2019-07-20] MEDS ORDERED: ONDA4TAB6 PO (15:01)
== END 2019-07-20 14:27 | disposition home or self-care (01) | DRG 885 ==
LOC: M ED 11:00 → M ED INP 13:45 → M PSY 14:50
PROVIDERS: ADMIT Psychiatry & Neurology Addiction Medicine; ATTEND Psychiatry & Neurology Addiction Medicine
DX: F25.0 Schizoaffective disorder, bipolar type (principal); J44.9 Chronic obstructive pulmonary disease, unspecified; G47.00 Insomnia, unspecified; F32.9 Major depressive disorder, single episode, unspecified; F41.9 Anxiety disorder, unspecified; K59.00 Constipation, unspecified; N39.3 Stress incontinence (female) (male); R03.0 Elevated blood-pressure reading, without diagnosis of hypertension; K21.9 Gastro-esophageal reflux disease without esophagitis; R51 Headache; M54.9 Dorsalgia, unspecified; Z79.82 Long term (current) use of aspirin; Z79.899 Other long term (current) drug therapy; Z91.14 Patient's other noncompliance with medication regimen

== ENCOUNTER 2019-09-21 14:17 | Emergency (ER) | payer MEDICARE, MEDICAID ==
[~2019-09-21 14:17] MED LIST changes: +ARIP1TAB6 PO; +CLON0.5T2 PO; -CLON0.5T8 PO; +FLUO20CA20 PO; -FLUO20CA8 PO
[2019-09-21 14:52] LABS: HEMATOCRIT 40.6 % (36.0-47.0); HEMOGLOBIN 12.8 g/dl (12.0-15.5); MEAN CORPUSCULAR HEMOGLOBIN 28.6 pg (27.0-33.0); MEAN CORPUSCULAR HGB CONC 31.5 g/dl (32.0-36.5); MEAN CORPUSCULAR VOLUME 90.8 fl (80.0-96.0); PLATELET COUNT, AUTOMATED 169 10^3/uL (150-450); RED BLOOD COUNT 4.47 10^6/uL (4.00-5.40); WHITE BLOOD COUNT 5.8 10^3/uL (4.0-10.0)
[2019-09-21 15:22] LABS: ACETAMINOPHEN LEVEL < 2.0 UG/ML (10.0-30.0); ALBUMIN 3.1 GM/DL (3.2-5.2); ALT/SGPT 16 U/L (12-78); BILIRUBIN,DIRECT < 0.1 MG/DL (0.0-0.2); BILIRUBIN,TOTAL 0.2 MG/DL (0.2-1.0); BLOOD UREA NITROGEN 18 MG/DL (7-18); CALCIUM LEVEL 8.6 MG/DL (8.8-10.2); CARBON DIOXIDE LEVEL 24 MEQ/L (21-32); CHLORIDE LEVEL 107 MEQ/L (98-107); CREATININE FOR GFR 0.88 MG/DL (0.55-1.30); ETHYL ALCOHOL (ETHANOL) 0.003 % (0.000-0.010); GLOMERULAR FILTRATION RATE > 60.0 (>45); GLUCOSE, FASTING 123 MG/DL (70-100); POTASSIUM SERUM 3.8 MEQ/L (3.5-5.1); SALICYLATE LEVEL 3.5 MG/DL (5.0-30.0); SODIUM LEVEL 140 MEQ/L (136-145); TOTAL PROTEIN 6.7 GM/DL (6.4-8.2)
[2019-09-21 16:38] LABS: AMPHETAMINES LEVEL URINE NEGATIVE (NEGATIVE); BARBITURATES URINE NEGATIVE (NEGATIVE); BENZODIAZEPINES URINE NEGATIVE (NEGATIVE); CANNABINOIDS URINE NEGATIVE (NEGATIVE); COCAINE METABOLITE URINE NEGATIVE (NEGATIVE); METHADONE URINE NEGATIVE (NEGATIVE); OPIATES URINE NEGATIVE (NEGATIVE); PHENCYCLIDINE URINE NEGATIVE (NEGATIVE)
[2019-09-21] MEDS ORDERED: ACETAMINOPHEN TAB 650MG DOSE (2X325MG) PO ONE (20:45)
[2019-09-22] MEDS ORDERED: INVE234I IM (07:23)
[2019-09-22 08:53] VITALS: BP 141/82
--- NOTE | 2019-09-23 07:48 | ECGEPIP ---
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
== END 2019-09-22 08:55 ==
LOC: M ED 14:17
DX: F20.9 Schizophrenia, unspecified (principal); J45.909 Unspecified asthma, uncomplicated; J44.9 Chronic obstructive pulmonary disease, unspecified; F17.210 Nicotine dependence, cigarettes, uncomplicated; Z79.899 Other long term (current) drug therapy
CPT/HCPCS: 36415; 80048; 80076; 80307; 84443; 85027; 93005; 99284; G0480

== ENCOUNTER 2020-01-28 10:37 | Inpatient (IN) | payer MEDICARE, MEDICAID ==
[~2020-01-28] VITALS: Ht 170.2 cm; Wt 82.7 kg
[2020-01-28 11:25] LABS: HEMATOCRIT 45.6 % (36.0-47.0); HEMOGLOBIN 14.4 g/dl (12.0-15.5); MEAN CORPUSCULAR HEMOGLOBIN 28.7 pg (27.0-33.0); MEAN CORPUSCULAR HGB CONC 31.6 g/dl (32.0-36.5); PLATELET COUNT, AUTOMATED 241 10^3/uL (150-450); RED BLOOD COUNT 5.01 10^6/uL (4.00-5.40); WHITE BLOOD COUNT 7.5 10^3/uL (4.0-10.0)
[2020-01-28 12:07] LABS: ACETAMINOPHEN LEVEL < 2.0 UG/ML (10.0-30.0); ALBUMIN 3.6 GM/DL (3.2-5.2); ALT/SGPT 19 U/L (12-78); BILIRUBIN,DIRECT < 0.1 MG/DL (0.0-0.2); BILIRUBIN,TOTAL 0.3 MG/DL (0.2-1.0); BLOOD UREA NITROGEN 23 MG/DL (7-18); CALCIUM LEVEL 8.7 MG/DL (8.8-10.2); CARBON DIOXIDE LEVEL 27 MEQ/L (21-32); CHLORIDE LEVEL 106 MEQ/L (98-107); CREATININE FOR GFR 0.83 MG/DL (0.55-1.30); ETHYL ALCOHOL (ETHANOL) < 0.003 % (0.000-0.010); GLOMERULAR FILTRATION RATE > 60.0 (>45); GLUCOSE, FASTING 113 MG/DL (70-100); POTASSIUM SERUM 4.4 MEQ/L (3.5-5.1); SALICYLATE LEVEL < 1.7 MG/DL (5.0-30.0); SODIUM LEVEL 140 MEQ/L (136-145); TOTAL PROTEIN 7.3 GM/DL (6.4-8.2)
[2020-01-28 12:55] LABS: AMPHETAMINES LEVEL URINE NEGATIVE (NEGATIVE); BARBITURATES URINE NEGATIVE (NEGATIVE); BENZODIAZEPINES URINE NEGATIVE (NEGATIVE); CANNABINOIDS URINE NEGATIVE (NEGATIVE); COCAINE METABOLITE URINE NEGATIVE (NEGATIVE); METHADONE URINE NEGATIVE (NEGATIVE); OPIATES URINE NEGATIVE (NEGATIVE); PHENCYCLIDINE URINE NEGATIVE (NEGATIVE)
[2020-01-28] MEDS ORDERED: MOM 30ML SUSPENSION UDC PO PRN (17:45)
[2020-01-28] MEDS ORDERED: MAALOX 30 ML SUSP *UDC PO PRN (17:45)
[2020-01-28 18:27] VITALS: BP 146/78
[2020-01-28] MEDS: traZODone 50 MG TAB PO PRN (21:09)
[2020-01-29 06:00] VITALS: BP 108/61
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
[2020-01-29] MEDS ORDERED: NICOTINE 14 MG/24 HR TRANSDERMAL TD PRN (13:30)
--- NOTE | 2020-01-29 13:31 | HPEPDOC ---
[facility] [place] Medical History & Physical Date of Admission January 29, 2020 Date of Service: January 29, 2020 History and Physical CHIEF COMPLAINT: Medical Consult HISTORY OF PRESENT ILLNESS: Pt is a 69-year-old female with PMH of schizzoaffective disorder, paranoid schizophrenia, depression, is seen at [facility]. Hospitalist team consulted for medical management. Patient reports that neighbors are the antichrist. She denies any headaches, changes in vision, chest pain, shortness of breath, nausea, vomiting, abdominal pain, issues with voiding or stooling, arthralgias, or new rashes. Vital signs stable, patient is afebrile. Labs reviewed, CBC grossly within normal limits, CMP, reveals creatinine of 0.83, fasting glucose 113, TSH 1.07. ROS: 10 point review systems negative except per above. PMH: See above. PSH: See above, umbilical hernia repair, exploratory laparoscopy, left wrist fracture and repair as a child Family history: Reviewed and noncontributory. Father was an alcoholic, both parents are . Social history: Current tobacco use 1/2 PPD, no alcohol, history of marijuana use Medications: Reviewed Allergies: NKDA PHYSICAL EXAMINATION: VITAL SIGNS: Please see below. GENERAL: No distress HEENT: Normocephalic, atraumatic, moist mucous membranes NECK: Supple CARDIOVASCULAR EXAMINATION: S1, S2 RESPIRATORY EXAMINATION: CTAB ABDOMINAL EXAMINATION: Soft, nontender, nondistended, positive bowel sounds EXTREMITIES: no edema SKIN: No rash NEUROLOGICAL EXAMINATION: Awake, tremors suggestive of tardive dyskinesia-like presentation PSYCHIATRIC EXAMINATION: Volatile mood, started crying quickly into the co nversation Assessment and plan: #schizoaffective disorder/mood disorders: Well defer to primary team for management #Nicotine dependence: Patient declines nicotine patch, will place one and when necessary #Tardive dyskinesia-like presentation: Likely secondary to history of medications versus drug use, continue to monitor at this time #Slightly elevated BUN, could be secondary to medication?, patient denies any hematochezia, H&H stable, we'll continue to monitor at this time prn. DVT ppx: freq ambulation Code: Full code Thank you for the consult Vital Signs Vital Signs Date Time Temp Pulse Resp B/P (MAP) Pulse Ox O2 Delivery O2 Flow Rate FiO2 01/29/20 06:00 97.7 69 18 108/61 (77) 97 Room Air Laboratory Data Labs 24H Laboratory Tests 2 01/28/20 11:11: Nucleated Red Blood Cells % (auto) 0.0, Anion Gap 7L, Glomerular Filtration Rate > 60.0, Calcium Level 8.7L, Total Bilirubin 0.3, Direct Bilirubin < 0.1, Aspartate Amino Transf (AST/SGOT) 12, Alanine Aminotransferase (ALT/SGPT) 19, Alkaline Phosphatase 96, Total Protein 7.3, Albumin 3.6, Albumin/Globulin Ratio 1.0L, Thyroid Stimulating Hormone (TSH) 1.070, Salicylates Level < 1.7L, Urine Opiates Screen NEGATIVE, Urine Methadone Screen NEGATIVE, Acetaminophen Level < 2.0L, Urine Barbiturates Screen NEGATIVE, Urine Phencyclidine Screen NEGATIVE, Urine Amphetamines Screen NEGATIVE, Urine Benzodiazepines Screen NEGATIVE, Urine Cocaine Metabolite Screen NEGATIVE, Urine Cannabinoids Screen NEGATIVE, Ethyl Alcohol Level < 0.003 CBC/BMP Laboratory Tests 01/28/20 11:11 Home Medications Unable to Obtain Active Prescriptions or Reported Meds Allergies Coded Allergies: No Known Allergies (Verified , 10/30/03) A-FIB/CHADSVASC A-FIB History Current/History of A-Fib/PAF?: No CHYNA MACEDO MD January 29, 2020 07:25
[2020-01-29 16:02] VITALS: BP 138/82
[2020-01-30 07:11] VITALS: BP 122/73
[2020-01-30 07:14] VITALS: BP 122/73
[2020-01-30] MEDS ORDERED: OLANZapine ORAL DISINTEGRATING TAB 5MG PO ONE (11:00)
[2020-01-30] MEDS ORDERED: BENZTROPINE 1 MG TAB PO ONE (11:00)
[2020-01-30 16:14] VITALS: BP 140/76
[2020-01-30] MEDS: ACETAMINOPHEN TAB 650MG DOSE (2X325MG) PO PRN (16:20)
[2020-01-30] MEDS: LORazepam 1 MG TAB PO PRN (16:21)
[2020-01-30] MEDS: OLANZapine ORAL DISINTEGRATING TAB 5MG PO SCH (21:35)
[2020-01-30] MEDS: traZODone 50 MG TAB PO PRN (21:35)
[2020-01-30] MEDS: BENZTROPINE 1 MG TAB PO SCH (21:35)
[2020-01-31] MEDS: ACETAMINOPHEN TAB 650MG DOSE (2X325MG) PO PRN ×3 (07:40→21:16)
[2020-01-31] MEDS: LORazepam 1 MG TAB PO PRN ×2 (07:40→15:16)
[2020-01-31] MEDS: BENZTROPINE 1 MG TAB PO SCH ×2 (07:40→21:15)
--- NOTE | 2020-01-31 10:11 | MHIPN ---
DATE: 01/30/2020 The patient today tells me, "I am not doing good". She feels that the Zyprexa is not working for her. She is very delusional. She tells me that, "I need to block them out". She is referring to the voices. MENTAL STATUS EXAMINATION: The patient is alert and oriented times three. Eye contact is fair. Psychomotor activity is normal. She does have slight of ideas, pressured speech. She says her mood is not good. Affect is appropriate to mood. She continues to have auditory hallucinations and she is delusional. Insight and judgment is poor. Concentration fair. DIAGNOSIS: Schizoaffective disorder. TREATMENT PLAN: At this point, the patient will continued to be monitored for her psychotic symptoms and we will continue to titrate her medications as indicated. We will treat her with Zyprexa on a as needed basis and Ativan as needed.
[2020-01-31] MEDS: OLANZapine ORAL DISINTEGRATING TAB 5MG PO SCH (21:15)
[2020-02-01] MEDS: LORazepam 1 MG TAB PO PRN ×2 (03:30→13:51)
[2020-02-01] MEDS: ACETAMINOPHEN TAB 650MG DOSE (2X325MG) PO PRN (03:30)
[2020-02-01 06:33] VITALS: BP 119/73
[2020-02-01] MEDS: BENZTROPINE 1 MG TAB PO SCH ×2 (09:05→20:41)
[2020-02-01 15:38] VITALS: BP 130/61
[2020-02-01] MEDS: OLANZapine ORAL DISINTEGRATING TAB 5MG PO SCH (20:42)
--- NOTE | 2020-02-01 22:42 | MHIPN ---
DATE: 01/31/2020 The patient today is very tearful. Speech is very pressured, at times very hard to understand what she is saying, but she did say, "I've got to get away from all of these patients." She is still hearing the voices. She keeps saying, "I believe that it's the power of Mcdonald, it's the power of Satan." MENTAL STATUS EXAM: The patient is alert, oriented times three. Eye contact is fair. She is tearful throughout. Her speech is pressured. She has flight of ideas. She says that she is "not good." Affect is labile. She remains quite paranoid and experiencing auditory hallucinations. Her concentration is poor. She is not suicidal/homicidal. Insight and judgment is poor. DIAGNOSIS: Schizoaffective disorder. TREATMENT PLAN: At this point, we will continue to monitor the patient for continued psychotic symptoms, and we will continue to titrate her medications as indicated. I started the patient on Zyprexa 10 mg nightly , as she does not want to take any long-term injectable medication, but I do think this would be the most therapeutic for her. VLADISLAVD
[2020-02-02] MEDS: ACETAMINOPHEN TAB 650MG DOSE (2X325MG) PO PRN (01:14)
[2020-02-02 06:12] VITALS: BP 140/83
[2020-02-02] MEDS: BENZTROPINE 1 MG TAB PO SCH ×2 (08:03→20:14)
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
[2020-02-02 16:40] VITALS: BP 150/95
[2020-02-02] MEDS: OLANZapine ORAL DISINTEGRATING TAB 5MG PO SCH (20:15)
[2020-02-03 06:16] VITALS: BP 148/90
[2020-02-03] MEDS: OLANZapine ORAL DISINTEGRATING TAB 5MG PO PRN ×2 (08:06→18:13)
[2020-02-03] MEDS: BENZTROPINE 1 MG TAB PO SCH ×2 (08:06→21:24)
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
[2020-02-03] MEDS: ACETAMINOPHEN TAB 650MG DOSE (2X325MG) PO PRN (15:14)
[2020-02-03 17:52] VITALS: BP 144/87
[2020-02-03] MEDS: OLANZapine ORAL DISINTEGRATING TAB 5MG PO SCH (21:24)
[2020-02-04 06:21] VITALS: BP 122/79
[2020-02-04] MEDS: OLANZapine ORAL DISINTEGRATING TAB 5MG PO PRN (06:26)
[2020-02-04] MEDS: BENZTROPINE 1 MG TAB PO SCH (09:00)
[2020-02-04] MEDS ORDERED: HALOPERIDOL DECANOATE 100 MG/ML VIAL (J1631) IM ONE (10:45)
[2020-02-04] MEDS: OLANZapine ORAL DISINTEGRATING TAB 5MG PO SCH (21:32)
[2020-02-04] MEDS ORDERED: BENZTROPINE 1 MG TAB PO ONE (22:00)
[2020-02-05 06:16] VITALS: BP 165/75
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
[2020-02-05] MEDS ORDERED: NICO14PA TD (10:04)
[2020-02-05] MEDS ORDERED: OLAN10TA2 PO (10:04)
[2020-02-05] MEDS ORDERED: BENZTROPINE 1 MG TAB PO PRN (10:45)
== END 2020-02-05 11:40 | disposition home or self-care (01) | DRG 885 ==
LOC: M ED 10:37 → M ED INP 17:43 → M PSY 18:25
PROVIDERS: ADMIT Psychiatry & Neurology Addiction Medicine; ATTEND Psychiatry & Neurology Addiction Medicine
DX: F25.0 Schizoaffective disorder, bipolar type (principal); Z81.8 Family history of other mental and behavioral disorders; F17.200 Nicotine dependence, unspecified, uncomplicated; G24.01 Drug induced subacute dyskinesia; Z91.14 Patient's other noncompliance with medication regimen

== ENCOUNTER 2020-03-31 12:53 | Inpatient (IN) | payer MEDICARE, MEDICAID ==
[~2020-03-31] VITALS: Ht 170.2 cm; Wt 75.9 kg
[~2020-03-31 12:53] MED LIST changes: +ACET650T61 PO; -ASPI81TA85 PO; +ASPI81TA86 PO; +NICO14PA TD; -TYLE650T35 PO
[2020-03-31] MEDS ORDERED: DIVA500T94 PO (13:02)
[2020-03-31] MEDS ORDERED: BENZ2TAB5 PO (13:02)
[2020-03-31 13:24] LABS: HEMATOCRIT 44.7 % (36.0-47.0); MEAN CORPUSCULAR HEMOGLOBIN 28.5 pg (27.0-33.0); MEAN CORPUSCULAR HGB CONC 31.3 g/dl (32.0-36.5); PLATELET COUNT, AUTOMATED 227 10^3/uL (150-450); RED BLOOD COUNT 4.91 10^6/uL (4.00-5.40); WHITE BLOOD COUNT 10.3 10^3/uL (4.0-10.0)
[2020-03-31 13:59] LABS: AMPHETAMINES LEVEL URINE NEGATIVE (NEGATIVE); BARBITURATES URINE NEGATIVE (NEGATIVE); BENZODIAZEPINES URINE NEGATIVE (NEGATIVE); CANNABINOIDS URINE NEGATIVE (NEGATIVE); COCAINE METABOLITE URINE NEGATIVE (NEGATIVE); METHADONE URINE NEGATIVE (NEGATIVE); OPIATES URINE NEGATIVE (NEGATIVE); PHENCYCLIDINE URINE NEGATIVE (NEGATIVE)
[2020-03-31 14:03] LABS: ACETAMINOPHEN LEVEL < 2.0 UG/ML (10.0-30.0); ALBUMIN 3.6 GM/DL (3.2-5.2); ALT/SGPT 18 U/L (12-78); BILIRUBIN,DIRECT 0.1 MG/DL (0.0-0.2); BILIRUBIN,TOTAL 0.5 MG/DL (0.2-1.0); BLOOD UREA NITROGEN 18 MG/DL (7-18); CALCIUM LEVEL 9.1 MG/DL (8.8-10.2); CARBON DIOXIDE LEVEL 26 MEQ/L (21-32); CHLORIDE LEVEL 105 MEQ/L (98-107); CREATININE FOR GFR 0.89 MG/DL (0.55-1.30); ETHYL ALCOHOL (ETHANOL) 0.004 % (0.000-0.010); GLOMERULAR FILTRATION RATE > 60.0 (>45); GLUCOSE, FASTING 126 MG/DL (70-100); POTASSIUM SERUM 4.4 MEQ/L (3.5-5.1); SALICYLATE LEVEL 4.7 MG/DL (5.0-30.0); SODIUM LEVEL 137 MEQ/L (136-145); TOTAL PROTEIN 7.4 GM/DL (6.4-8.2)
[2020-03-31] MEDS ORDERED: OLANZapine ORAL DISINTEGRATING TAB 5MG PO ONE (14:15)
[2020-03-31] MEDS ORDERED: NICO14DI31 TD (14:59)
[2020-03-31] MEDS ORDERED: INVE156I IM (14:59)
[2020-03-31] MEDS ORDERED: OLAN10TA2 PO (14:59)
[2020-03-31] MEDS ORDERED: MED REC COMMENT (14:59)
[2020-03-31] MEDS ORDERED: LORazepam 2 MG TAB PO STA (16:43)
[2020-03-31] MEDS ORDERED: MOM 30ML SUSPENSION UDC PO PRN (20:45)
[2020-03-31] MEDS ORDERED: NICOTINE 14 MG/24 HR TRANSDERMAL TD PRN (20:45)
[2020-03-31] MEDS ORDERED: MAALOX 30 ML SUSP *UDC PO PRN (20:45)
[2020-03-31] MEDS: DIVALPROEX 500 MG TAB PO SCH (22:19)
[2020-03-31] MEDS: BENZTROPINE 2 MG TAB PO SCH (22:19)
[2020-04-01 02:27] VITALS: BP 139/89
[2020-04-01 06:40] VITALS: BP 126/81
--- NOTE | 2020-04-01 07:29 | MHHPEPDOC ---
[facility] History & Physical History and Physical DATE OF ADMISSION: Mar 31, 2020 at 20:43 HPI: Samira presents today for concerns regarding schizophrenia. She is very distorted and unable to reason. MEDICATIONS: She currently takes Invega. MEDICAL HISTORY: Zain medical history includes many hospital admissions for schizoaffective disorder. FAMILY HISTORY: Zain family history is not well-known. SOCIAL HISTORY - LIVING SITUATION: She is currently living under [facility] supervision. Objective Appearance: Highly distorted. Irritable. Labile. Speech: Nearly incoherent speech. Insight: Poor insight. Assessment F25.0 Schizoaffective disorder, bipolar type Plan Primary priority is altered thoughts and length of stay will be between 7 and 10 days. Resume home medications. Monitor behavior and response to medications and make changes as needed. Consider long-term referral as she is particularly sick during this episode. Vital Signs Vital Signs Date Time Temp Pulse Resp B/P (MAP) Pulse Ox O2 Delivery O2 Flow Rate FiO2 04/01/20 06:40 97.6 99 14 126/81 (96) Room Air 04/01/20 02:27 96 Laboratory Data 24H Labs Laboratory Tests 2 03/31/20 13:12: Nucleated Red Blood Cells % (auto) 0.0, Anion Gap 6L, Glomerular Filtration Rate > 60.0, Calcium Level 9.1, Total Bilirubin 0.5, Direct Bilirubin 0.1, Aspartate Amino Transf (AST/SGOT) 13, Alanine Aminotransferase (ALT/SGPT) 18, Alkaline Phosphatase 111, Total Protein 7.4, Albumin 3.6, Albumin/Globulin Ratio 0.9L, Thyroid Stimulating Hormone (TSH) 0.740, Salicylates Level 4.7L, Urine Opiates Screen NEGATIVE, Urine Methadone Screen NEGATIVE, Acetaminophen Level < 2.0L, Urine Barbiturates Screen NEGATIVE, Urine Phencyclidine Screen NEGATIVE, Urine Amphetamines Screen NEGATIVE, Urine Benzodiazepines Screen NEGATIVE, Urine Cocaine Metabolite Screen NEGATIVE, Urine Cannabinoids Screen NEGATIVE, Ethyl Alcohol Level 0.004 CBC/BMP Laboratory Tests 03/31/20 13:12 Medications Scheduled Benztropine Mesylate (Benztropine Mesylate) 2 Mg Tablet, 2 MG PO QHS, (Reported) Divalproex Sodium (Divalproex Sodium) 500 Mg Tablet.dr, 500 MG PO QPM, (Reported) Olanzapine (Olanzapine) 10 Mg Tablet, 10 MG PO DAILY, (Reported) Paliperidone Palmitate (Invega Sustenna) 156 Mg/1 Ml Syringe, 156 MG IM QMONTH, (Reported) Scheduled PRN Nicotine (Nicotine Patch) 14 Mg/24 Hr Patch.td24, 14 MG TD DAILY PRN for NICOTINE WITHDRAWAL, (Reported) Miscellaneous Medications [Med Rec Comment] , (Reported) MEDICATIONS VERIFIED WITH PHARMACY Allergies Coded Allergies: No Known Allergies (Verified , 10/30/03) OLY WU DO Apr 01, 2020 07:29
[2020-04-01] MEDS: OLANZapine 10 MG TAB PO SCH (09:00)
--- NOTE | 2020-04-01 15:30 | HPEPDOC ---
[facility] Medical History & Physical Date of Admission Mar 31, 2020 Date of Service: Apr 01, 2020 History and Physical CHIEF COMPLAINT: "I don't know why I'm here" HISTORY OF PRESENT ILLNESS: Patient is 69 year old female with PMH Schizoaffective disorders, schizophrenia and depression presented after a psychotic episode. Difficult to obtain history as patient is not completely aware of everything that is going on and history is limited from patient. She reported no physical complaints and no medical problems are previously documented. She states that her BP goes very high when she is angry but otherwise have no problems. She reported feeling well but has a cut on her L. index finger that needs a band aid. PAST MEDICAL HISTORY: Refer to [facility] PAST SURGICAL HISTORY: Umbilical hernia repair, L. wrist surgery, Ex lap SOCIAL HISTORY: Smokes 1/2 ppd. Denies alcohol use. Smokes marijuana. FAMILY HISTORY: Dad- alcoholism and HTN ALLERGIES: Please see below. REVIEW OF SYSTEMS: 10 point review of system negative except as stated in HPI HOME MEDICATIONS: Please see below. PHYSICAL EXAMINATION: General: Mentally labile, answer most questions appropriately but not all, very emotional and cries from time to time Eyes: Normal sclera, EOMI HENT: Atraumatic Cardiovascular: Normal rate Pulmonary: Clear to auscultation b/l, no wheezing GI: Soft, nontender, nondistended Skin: Warm and dry Neuro: CN grossly intact. No focal deficits. Strengths equal b/l. psych: disorganized thought, anxious and emotional LABORATORY DATA: See below. MICROBIOLOGY: Please see below. ASSESSMENT AND PLAN: 1. Schizophrenia and depression - continue psych eval and treatment. No physical complaints at this time and no known medical history. Need regular care from PCP post discharge. Fasting glucose borderline. Will sign off at this time, please call with any questions or concerns. Vital Signs Vital Signs Date Time Temp Pulse Resp B/P (MAP) Pulse Ox O2 Delivery O2 Flow Rate FiO2 04/01/20 06:40 97.6 99 14 126/81 (96) Room Air 04/01/20 02:27 96 Home Medications Scheduled Benztropine Mesylate (Benztropine Mesylate) 2 Mg Tablet, 2 MG PO QHS Divalproex Sodium (Divalproex Sodium) 500 Mg Tablet.dr, 500 MG PO QPM Olanzapine (Olanzapine) 10 Mg Tablet, 10 MG PO DAILY Paliperidone Palmitate (Invega Sustenna) 156 Mg/1 Ml Syringe, 156 MG IM QMONTH Scheduled PRN Nicotine (Nicotine Patch) 14 Mg/24 Hr Patch.td24, 14 MG TD DAILY PRN for NICOTINE WITHDRAWAL Miscellaneous Medications [Med Rec Comment] MEDICATIONS VERIFIED WITH PHARMACY Allergies Coded Allergies: No Known Allergies (Verified , 10/30/03) A-FIB/CHADSVASC A-FIB History Current/History of A-Fib/PAF?: No MARIO AUGUST MD Apr 01, 2020 15:30
[2020-04-01 18:15] VITALS: BP 124/73
[2020-04-01] MEDS: BENZTROPINE 2 MG TAB PO SCH ×2 (21:00→22:56)
[2020-04-01] MEDS: DIVALPROEX 500 MG TAB PO SCH ×2 (21:00→22:56)
[2020-04-02 06:04] VITALS: BP 140/82
[2020-04-02] MEDS: OLANZapine 10 MG TAB PO SCH ×2 (08:53→21:11)
[2020-04-02] MEDS ORDERED: OLANZapine 5 MG TAB PO PRN (14:00)
[2020-04-02] MEDS ORDERED: OLANZapine 10 MG TAB PO ONE (14:30)
[2020-04-02] MEDS ORDERED: diphenhydrAMINE 50MG CAP PO ONE (14:30)
[2020-04-02 15:47] VITALS: BP 158/74
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
--- NOTE | 2020-04-02 15:55 | MHIPNPDOC ---
[facility] Progress Note Progress Note 04/02/20 Please disregard, wrong edit. Vital Signs Vital Signs Date Time Temp Pulse Resp B/P (MAP) Pulse Ox O2 Delivery O2 Flow Rate FiO2 04/02/20 06:04 97.0 101 20 140/82 (101) 95 Room Air Current Medications Current Medications Medications (Trade) Dose Ordered Sig/Holly Route PRN Reason Start Time Stop Time Status Last Admin Dose Admin Acetaminophen (Tylenol Tab) 650 mg Q6HP PRN PO HEADACHE or DISCOMFORT 03/31/20 20:45 Al Hydrox/Mg Hydrox/Simethicone (Mylanta) 30 ml Q4HP PRN PO HEARTBURN/INDIGESTION 03/31/20 20:45 Benztropine Mesylate (Cogentin) 2 mg QHS PO 03/31/20 21:00 04/01/20 22:56 Divalproex Sodium (Depakote) 500 mg QPM PO 03/31/20 21:00 04/01/20 22:56 Home Med (Med Rec Complete!) ASDIRECTED XX 03/31/20 15:00 03/31/20 15:02 DC Lorazepam (Ativan) 2 mg STAT STAT PO 03/31/20 16:43 03/31/20 16:44 DC 03/31/20 16:49 Magnesium Hydroxide (Milk Of Magnesia) 30 ml DAILYPRN PRN PO CONSTIPATION 03/31/20 20:45 Nicotine (Nicoderm Cq 14mg) 1 patch DAILY PRN TD NICOTINE WITHDRAWAL 03/31/20 20:45 Olanzapine (ZyPREXA) 5 mg Q6HP PRN PO ANXIETY/AGITATION 04/02/20 14:00 Olanzapine (ZyPREXA) 10 mg BID PO 04/02/20 21:00 Olanzapine (ZyPREXA) 10 mg DAILY PO 04/01/20 09:00 04/02/20 14:03 DC 04/02/20 08:53 Trazodone HCl (Desyrel) 50 mg QHSP PRN PO INSOMNIA 03/31/20 20:45 Allergies Coded Allergies: No Known Allergies (Verified , 10/30/03) DANA ROSALES MD Apr 02, 2020 15:49
[2020-04-02] MEDS: BENZTROPINE 2 MG TAB PO SCH (21:11)
[2020-04-02] MEDS: DIVALPROEX 500 MG TAB PO SCH (21:11)
[2020-04-02] MEDS: ACETAMINOPHEN TAB 650MG DOSE (2X325MG) PO PRN (21:14)
[2020-04-03] MEDS: OLANZapine 10 MG TAB PO SCH ×2 (09:05→21:30)
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
[2020-04-03 16:31] VITALS: BP 140/86
[2020-04-03] MEDS: traZODone 50 MG TAB PO PRN (21:30)
[2020-04-03] MEDS: DIVALPROEX 500 MG TAB PO SCH (21:30)
[2020-04-03] MEDS: BENZTROPINE 2 MG TAB PO SCH (21:31)
[2020-04-03] MEDS: ACETAMINOPHEN TAB 650MG DOSE (2X325MG) PO PRN (21:31)
[2020-04-04 06:04] VITALS: BP 151/88
[2020-04-04] MEDS: OLANZapine 10 MG TAB PO SCH ×2 (09:37→20:48)
[2020-04-04] MEDS: ACETAMINOPHEN TAB 650MG DOSE (2X325MG) PO PRN (15:16)
[2020-04-04 16:16] VITALS: BP 119/65
--- NOTE | 2020-04-04 18:50 | MHIPN ---
DATE: 04/04/2020 VITAL SIGNS: Blood pressure 119/65, pulse 102, temperature 97.6. CHIEF COMPLAINT: Feels distressed. SUBJECTIVE: Seen in the presence of staff. I am assigned to this patient's care today. She has been feeling distressed, at times somewhat agitated, and attempts to explain her predicament at present, though at times she is hard to understand, with rapid speech and the words not very clear at times, but speaks of voices and possibly images. She apparently indicates she has been off her medicine since February, though I am not quite sure how accurate that is. Spoke of being on Mellaril many years ago. She suggests she used to use that with benztropine. MENTAL STATUS EXAMINATION: Cooperative. Displays only mild agitation. No psychomotor retardation. Speech is fairly rapid, somewhat difficult to understand. Possible tangentiality of thought as well. Affect displays some irritability. Denies active suicidal thoughts or any thoughts of harming anyone else. At present does not appear to be internally preoccupied but talks of hallucinations. Possible delusions as well, particularly related to a neighbor of hers. No fluctuation of consciousness. Judgment and insight are compromised. ASSESSMENT: Schizophrenia versus schizoaffective disorder. Schizoaffective disorder, bipolar type, needs to be considered. PLAN: Continue with offering her current care, including olanzapine at 20 mg daily scheduled. I would suggest that she use olanzapine as needed as well. She is on Cogentin at 2 mg at night, Depakote 500 mg in the afternoon. I would suggest obtaining collateral information as best as possible. Continue current observation. Further recommendations will be made depending on the clinical picture. She will be seen by the assigned clinician tomorrow.
[2020-04-04] MEDS: DIVALPROEX 500 MG TAB PO SCH (20:48)
[2020-04-04] MEDS: BENZTROPINE 2 MG TAB PO SCH (20:48)
[2020-04-04] MEDS: traZODone 50 MG TAB PO PRN (20:48)
[2020-04-05 06:40] VITALS: BP 129/73
[2020-04-05] MEDS: OLANZapine 10 MG TAB PO SCH ×2 (08:36→20:44)
--- NOTE | 2020-04-05 20:34 | MHIPN ---
DATE: 04/05/2020 VITAL SIGNS: Blood pressure 129/73, pulse 91, temperature 97.7. CHIEF COMPLAINT: Feels better. SUBJECTIVE: Seen for followup. She is seen in the presence of staff. She says she is feeling better and that she had a "peaceful" night. She has not taken any naps during the day. Voices are somewhat diminished. Has been eating. In fact, was eating dinner just before I saw her. MENTAL STATUS EXAM: She is cooperative. She is neat. Displays no agitation at present. No psychomotor retardation. Speech less rapid than yesterday, and she is essentially coherent, little in terms of tangentiality of thought. Affect calmer. Denies any active suicidal thoughts or thoughts of harming anyone else. Does not appear to be internally preoccupied at present. No overt delusions. No fluctuation of consciousness. Judgment and insight remain compromised, though possibly a bit improved. ASSESSMENT: Schizoaffective disorder. Appears less distressed than yesterday, more stable overall. PLAN: Continue current care, observations, and continue her current medications as well. Will also look at obtaining a valproic acid level.
[2020-04-05] MEDS: traZODone 50 MG TAB PO PRN (20:44)
[2020-04-05] MEDS: BENZTROPINE 2 MG TAB PO SCH (20:44)
[2020-04-05] MEDS: DIVALPROEX 500 MG TAB PO SCH (21:00)
[2020-04-06 06:46] VITALS: BP 117/80
[2020-04-06] MEDS: OLANZapine 10 MG TAB PO SCH ×2 (08:27→22:54)
[2020-04-06 16:17] VITALS: BP 134/74
[2020-04-06] MEDS: ACETAMINOPHEN TAB 650MG DOSE (2X325MG) PO PRN (18:12)
[2020-04-06] MEDS: DIVALPROEX 500 MG TAB PO SCH ×2 (21:00→22:54)
[2020-04-06] MEDS: BENZTROPINE 2 MG TAB PO SCH (22:53)
[2020-04-07] MEDS: ACETAMINOPHEN TAB 650MG DOSE (2X325MG) PO PRN (06:38)
[2020-04-07 06:43] VITALS: BP 134/74
[2020-04-07] MEDS: OLANZapine 10 MG TAB PO SCH (08:34)
--- NOTE | 2020-04-07 08:39 | MHIPN ---
DATE: 04/06/2020 VITAL SIGNS: Blood pressure 134/74, temperature 98.1, pulse 95. CHIEF COMPLAINT: Feels better. SUBJECTIVE: Seen for follow-up, in the presence of staff. She says she feels better, and has been feeling less anxious. Wheezing, in fact I saw her when she was having dinner. She had a good sleep. She has been doing some art work, which she showed me. MENTAL STATUS EXAMINATION: Neat, cooperative. No agitation. Speech a bit more overly productive, but still coherent overall. Appears mildly anxious. Does not appear internally preoccupied. No overt delusions elicited, although seems to be "just under the surface." Judgment and insight remain compromised. ASSESSMENT: Schizoaffective disorder. PLAN: Continue current care, including the olanzapine at 10 mg twice a day, the Depakote at current dose. We will look at changing the Depakote level. Continue current observations. Would suggest her using an intramuscular monthly antipsychotic, she declines that. Concerns would be her compliance when she leave or adhering to the recommendations. She says she smokes a bit of cannabis, I would suggest cutting that down. Further recommendations will be made depending on the clinical picture.
[2020-04-09] MEDS ORDERED: OLANZapine 10 MG TAB ONE (09:33)
[2020-04-09] MEDS ORDERED: OLANZapine 5 MG TAB ONE (16:49)
[2020-04-11] MEDS ORDERED: OLANZapine 10 MG TAB ONE (09:20)
[2020-04-11] MEDS ORDERED: DIVALPROEX 250MG *ER* TAB As Ordered ONE (09:20)
[2020-04-11] MEDS ORDERED: DIVALPROEX 250MG *ER* TAB ONE ×2 (09:20→10:19)
[2020-04-11] MEDS ORDERED: DIVALPROEX 250 MG TAB As Ordered ONE (22:19)
[2020-04-12] MEDS ORDERED: OLANZapine 10 MG TAB ONE (08:48)
[2020-04-12] MEDS ORDERED: ACETAMINOPHEN TAB 650MG DOSE (2X325MG) ONE (08:48)
[2020-04-12] MEDS ORDERED: DIVALPROEX 250 MG TAB ONE (08:48)
[2020-04-12] MEDS ORDERED: DIVALPROEX 250 MG TAB As Ordered ONE (20:47)
[2020-04-13] MEDS ORDERED: OLANZapine 10 MG TAB ONE (09:45)
[2020-04-13] MEDS ORDERED: DIVALPROEX 250MG *ER* TAB As Ordered ONE (16:08)
[2020-04-13] MEDS ORDERED: OLANZapine 5 MG TAB ONE (21:07)
[2020-04-14] MEDS ORDERED: OLANZapine 10 MG TAB ONE (11:46)
[2020-04-14] MEDS ORDERED: NICOTINE 14 MG/24 HR TRANSDERMAL ONE (11:46)
[2020-04-14] MEDS ORDERED: DIVALPROEX 250MG *ER* TAB As Ordered ONE ×3 (11:46→20:45)
[2020-04-14] MEDS ORDERED: OLANZapine 5 MG TAB ONE (20:45)
[2020-04-15] MEDS ORDERED: DIVALPROEX 250MG *ER* TAB As Ordered ONE ×2 (09:08→22:46)
[2020-04-15] MEDS ORDERED: OLANZapine 10 MG TAB ONE ×2 (09:08→22:46)
[2020-04-15] MEDS ORDERED: BENZTROPINE 2 MG TAB ONE (22:46)
[2020-04-16] MEDS ORDERED: OLANZapine 5 MG TAB ONE (06:16)
[2020-04-16] MEDS ORDERED: ACETAMINOPHEN TAB 650MG DOSE (2X325MG) ONE ×2 (06:16→19:42)
[2020-04-16] MEDS ORDERED: OLANZapine 10 MG TAB ONE ×2 (08:06→21:14)
[2020-04-16] MEDS ORDERED: DIVALPROEX 250MG *ER* TAB As Ordered ONE ×2 (08:06→21:14)
[2020-04-16] MEDS ORDERED: BENZTROPINE 2 MG TAB ONE (23:22)
[2020-04-17] MEDS ORDERED: DIVALPROEX 250MG *ER* TAB As Ordered ONE ×2 (09:12→23:04)
[2020-04-17] MEDS ORDERED: ACETAMINOPHEN TAB 650MG DOSE (2X325MG) ONE (13:05)
[2020-04-17] MEDS ORDERED: OLANZapine ORAL DISINTEGRATING TAB 5MG As Ordered ONE (15:30)
[2020-04-17] MEDS ORDERED: OLANZapine 10 MG TAB ONE (23:05)
[2020-04-18] MEDS ORDERED: DIVALPROEX 250 MG TAB As Ordered ONE (09:42)
[2020-04-18] MEDS ORDERED: OLANZapine 10 MG TAB ONE ×2 (21:42→21:55)
[2020-04-18] MEDS ORDERED: BENZTROPINE 2 MG TAB ONE (21:55)
[2020-04-18] MEDS ORDERED: DIVALPROEX 250MG *ER* TAB As Ordered ONE (21:55)
[2020-04-19] MEDS ORDERED: BENZTROPINE 2 MG TAB ONE (05:07)
[2020-04-19] MEDS ORDERED: OLANZapine 10 MG TAB ONE ×3 (05:07→22:05)
[2020-04-19] MEDS ORDERED: DIVALPROEX 250MG *ER* TAB As Ordered ONE ×2 (08:55→22:05)
[2020-04-20] MEDS ORDERED: OLANZapine 10 MG TAB ONE ×2 (08:21→23:57)
[2020-04-20] MEDS ORDERED: DIVALPROEX 250MG *ER* TAB As Ordered ONE ×2 (08:21→23:58)
[2020-04-21] MEDS ORDERED: OLANZapine 10 MG TAB ONE (08:03)
[2020-04-21] MEDS ORDERED: DIVALPROEX 250MG *ER* TAB As Ordered ONE (08:03)
[2020-04-21] MEDS ORDERED: ACETAMINOPHEN TAB 650MG DOSE (2X325MG) ONE (10:20)
--- NOTE | 2020-06-24 12:28 | MHIPN ---
DATE: 04/18/2020 The computer system is still down. The patient is seen for followup. She says she feels better, and that she slept well. She says she has been trying to read, but has difficulties because of her eyesight. She says has been eating okay. MENTAL STATUS EXAMINATION: She is neat, she is cooperative. There is no agitation, no psychomotor retardation. Affect more settled, reactive, appears more relaxed, and at present does not appear to be internally preoccupied, though still remains deluded, but less overtly so. Denies thoughts of harming herself. Judgment and insight improved, though remain compromised. ASSESSMENT: Schizoaffective disorder. Clinically improved today, as compared to late last week (today is Saturday). She has been taking her medicines, the Zyprexa, the Depakote, but had declined the benztropine at night. PLAN: She is to continue with current care, and the medication combination, we will encourage her to continue adhering to that and should matters continue improving, we will look at discharging the patient fairly soon. TRAVIS
--- NOTE | 2020-06-24 12:29 | MHIPN ---
DATE: 04/20/2020 CHIEF COMPLAINT: Feels stressed. SUBJECTIVE: Seen for followup. Indicates has been feeling stressed, as she is concerned someone may have put Abilify in her food during lunch. Says had a reasonable night. Has gone back and forth on considering using Abilify per our discussion yesterday. MENTAL STATUS EXAMINATION: Neat, cooperative. Appears somewhat distressed. No agitation. No psychomotor retardation. Affect is restricted. No overt evidence of any thoughts of harming herself or anyone else but remains deluded, delusions of persecution. Judgment and insight remain compromised. ASSESSMENT: Schizoaffective disorder. PLAN: Continue current care. We spoke once again in terms of details regarding using Abilify injectable. She declines it for now but says will consider it. The patient has not been on Abilify Maintena in the past as far as we can tell. We had called the pharmacy that she gets her medicines from (It should be noted our computer system are will down. I have no access to previous records). We discussed once again the idea of taking Abilify orally, and then if she tolerates it to use Abilify Maintena. I would suggest the lower dose, 200 mg intramuscular, once a month. She has gone back and forth on this. Meanwhile, she is to continue the Zyprexa as well as the Depakote. Depakote level, I understand today, is in the mid 20s. Continue rest of current care. May need to consider referring her for long-term care should this continue. At present is not well enough for discharge. TRAVIS
--- NOTE | 2020-06-24 12:31 | MHIPN ---
DATE: 04/13/2020 The computers are down. I am assigned to her care for today. CHIEF COMPLAINT: Says feels okay. SUBJECTIVE: Seen for followup. Indicates feels okay but says is concerned about her neighbors at home, whom she says are from [place], and she spoke of things being poisoned and her worrying about that, but she is unclear. Had been noted by staff to be talking to herself regarding neighbors last night. She says she slept well. MENTAL STATUS EXAMINATION: She is fairly neat. She is cooperative. No overt agitation. No psychomotor retardation. She is coherent for the most part. Somewhat labile affect. She denies any thoughts of harming herself or anyone else. At present does not appear internally preoccupied. Remains deluded. Judgment and insight are compromised. ASSESSMENT: Schizoaffective disorder. PLAN: Increase the Depakote to 250 mg twice a day. Continue the Zyprexa at the current dose. Look at obtaining a Depakote level in a few days. Continue encouraging participation in activities in the unit. Further recommendations will be made depending on the clinical picture. MTDD
--- NOTE | 2020-06-24 12:31 | MHIPN ---
DATE: 04/19/2020 She says she recently lost her soul. She is seen for followup, in the presence of staff, says had been resting, and that she found the night interesting. She spoke of somebody taking her soul this afternoon, and says she then regained it. Sleep has been fair. Appetite is okay. She also indicates has had thoughts about the medicines she takes, and is concerned that [employer] may have something to do with it. MENTAL STATUS EXAMINATION: She is cooperative, no agitation, no psychomotor retardation, answers questions and speaks coherently with her restricted affect, displays some mild anxiety, no active thoughts of hurting herself or anyone else, has delusions, those of persecution, judgment and insight remains compromised. ASSESSMENT: Schizoaffective disorder. Remains psychotic, and this tends to vary, in terms of intensity. PLAN: Continue Zyprexa and Depakote at current doses, has been taking them most occasions recently. We understand from outpatient, the [facility], that she last got her injection of Invega Sustenna in mid-February. When this is presented to her, she declines getting it again, citing side effects, but she is not clear on those, but alludes to sexual ones. She is not sure if she has had any Abilify in the past. I suggest that she continue with the current medication for now, but we will look at trying to persuade her to take an injectable long-acting psychotic, will check to see if she has ever been on Abilify Maintena in the past. We do not have access to the past records here, as the computer system is still down. We will call the clinic, or her pharmacy, to find out more details. Meanwhile, encourage participation in current activities. TRAVIS
--- NOTE | 2020-06-24 12:32 | MHIPN ---
DATE: 04/14/2020 CHIEF COMPLAINT: Feels stressed. SUBJECTIVE: Seen in followup. Has been stressed, says she was disturbed by a nurse at night, says she was given candy to take, but was hesitant and did not want to take it, and felt it might harm her; but did not elaborate. Says it kept her up at night a bit and she feels she must have slept afterwards. Has not rested during the day. Says she does not take any naps. MENTAL STATUS EXAMINATION: Neat, cooperative, and coherent. Appears mildly stressed. No agitation as such. No psychomotor retardation. No evidence of any active thoughts of harming herself or anyone else. Has delusions persecutory. Cognition grossly intact. Judgment and insight are compromised, more so than they have been lately. ASSESSMENT: Schizoaffective disorder. Remains diluted with the delusions being more prominent, particularly in terms of others persecuting her. This impacts, and continues to, her wellbeing. The patient has been on Zyprexa, Depakote. PLAN: I feel if she continues with these, and hence her taking them, and we spoke of using an injectable [employer] superintendent antipsychotic. I do not have access to previous records, since the system is still down, and she is not sure what she has had in the past in terms of injections. Does not want Invega; it is possible she may have had that in the past. We will need to check on the records when available, I will look at collateral history, to see if one is feasible. Meanwhile, continue current precautions. Further recommendations to be made depending on the clinical picture. TRAVIS
--- NOTE | 2020-06-25 10:02 | IPN ---
DATE: 04/15/2020 CHIEF COMPLAINT: The patient feels stressed. SUBJECTIVE: Seen for followup. She is seen in the presence of staff. Has been feeling anxious, stressed. Says she is and that she lost the baby and that the baby was coming out of her body, but that she somehow retained it. Says this all happened in the last half an hour. She had gone to the nurse's station to ask for medicine. Says she thinks that she slept okay at night. Appetite is fair. MENTAL STATUS EXAMINATION: Neat, cooperative. She is mildly distressed. No psychomotor retardation. No agitation as such. Affect is reactive, though somewhat restricted. Denies any thoughts of harming herself or anyone else. Is deluded. Judgment and insight are comprised. ASSESSMENT: Schizoaffective disorder. Moods have tended to fluctuate, and she remains deluded. PLAN: She is encouraged to continue with Zyprexa and Depakote scheduled twice a day. She is encouraged to take them. I understand she has taken them today. We will prescribe Zydis Zyprexa 5 mg every 6 hours to help With agitation or anxiety with a maximum of 10 mg as needed. We will encourage participation in the unit. Remains deluded. The delusions interfere with her functioning and well being. Further recommendations will be made depending on the clinical picture. TRAVIS
--- NOTE | 2020-07-19 11:11 | MHDSPDOC ---
[facility] Discharge Summary Discharge Summary DATE OF ADMISSION: Mar 31, 2020 at 20:43 DATE OF DISCHARGE: Apr 21, 2020 at 12:38 DISCHARGE DIAGNOSES: Schizoaffective disorder bipolar type CONSULTANTS INVOLVED:[ None (basic hospitalist screening)] REASON FOR ADMISSION & TREATMENT AND PROGRESS ON THE UNIT : The patient was admitted to the inpatient mental health unit after being found quite bizarre and agitated as her general presentation. She eventually had some of her medications altered and changed, and she made good progress over this time. The patient doesnt meet involuntary criteria, she has not demonstrated any agitation for quite some time. She returned to her baseline mental status exam and is currently housed in the [facility] housing which is supportive. At this time her dynamic risk factors have been reduced. Outpatient cognitive testing would be indicated, however this is quite difficult at this time due to coronavirus. The patient otherwise has done well, and was send with paper prescriptions for her various medications as listed below. She declined further voluntary admission and was triage for discharge. Will still recommend patient pursue [facility]. DISCHARGE ASSESSMENT:[improved] Legal status considerations: The patient at the time of discharge did not meet criteria for involuntary admission/extension due to having a improved mental status exam, improved insight into the situation, They are engaged in the discharge process, as well as being friendly and amenable in behavioral control and havent been engaging in any observed concerning behavior or ideation recently. They decline voluntary extension/admission at this time and must be discharged in [place], as Im unable to make a case for holding the patient against their will. They may have historical risk factors of admissions and other interactions with psychiatry however, those are not modifiable from a clinical perspective. The patient will need to be discharged in [place]. MENTAL STATUS EXAMINATION ON DISCHARGE: Appearance: Well groomed. Well nourished. Appears to be stated age. Behavior: Pleasant. Engaged. Cooperative with good eye contact. Cognition: She has still has come concentration and focus problems related to chronic cognitive problems. Thought Form: Linear and goal directed. Thought Content: No evidence of aggressive or homicidal ideation. No evidence of suicidal ideation. No evidence of delusions. No thoughts of self harm. Perception: No perceptual abnormalities noted. Judgement: Baseline. Insight: Baseline. Assessme PLAN/FOLLOWUP ARRANGEMENTS: Follow up appointments made (PCP and MH in 5 days of D/C date) and safety plan completed. Safety Planning aspects completed prior to discharge [Medication supplies limited to 7 days with 4 refills to prevent accumulation to OD] Freight Delivery Driver coordinated with [RN reviewed crisis hotline information and other aspects to empower patient to access care in interim before next appointment.] The amount of time spent in the coordination of care for this patient was approximately 30 minutes. Medications No Active Prescriptions or Reported Meds Allergies Coded Allergies: No Known Allergies (Verified , 10/30/03) OLY WU DO Jul 19, 2020 11:11
== END 2020-04-21 12:38 | disposition home or self-care (01) | DRG 885 ==
LOC: M ED 12:53 → M ED INP 20:43 → M PSY 23:39
PROVIDERS: ADMIT Psychiatry & Neurology Addiction Medicine; ATTEND Psychiatry & Neurology Addiction Medicine
DX: F25.0 Schizoaffective disorder, bipolar type (principal); Z79.899 Other long term (current) drug therapy; F17.200 Nicotine dependence, unspecified, uncomplicated

== ENCOUNTER 2020-05-25 14:48 | Inpatient (IN) | payer MEDICAID, MEDICARE ==
[~2020-05-25] VITALS: Ht 170.2 cm; Wt 82.5 kg
[~2020-05-25 14:48] MED LIST changes: +INVE156I IM; +MED REC COMMENT; +NICO14DI31 TD
[2020-05-25] MEDS ORDERED: DIVA250T7 (15:12)
[2020-05-25] MEDS ORDERED: OLAN20TA14 (15:12)
[2020-05-25] MEDS ORDERED: OLAN15TA PO ×2 (15:13)
[2020-05-25] MEDS ORDERED: OLAN10TA2 PO (15:14)
[2020-05-25 16:06] LABS: HEMATOCRIT 43.8 % (36.0-47.0); HEMOGLOBIN 13.9 g/dl (12.0-15.5); MEAN CORPUSCULAR HEMOGLOBIN 29.4 pg (27.0-33.0); MEAN CORPUSCULAR HGB CONC 31.7 g/dl (32.0-36.5); MEAN CORPUSCULAR VOLUME 92.8 fl (80.0-96.0); PLATELET COUNT, AUTOMATED 212 10^3/uL (150-450); RED BLOOD COUNT 4.72 10^6/uL (4.00-5.40); WHITE BLOOD COUNT 8.7 10^3/uL (4.0-10.0)
[2020-05-25 16:30] LABS: AMPHETAMINES LEVEL URINE NEGATIVE (NEGATIVE); BARBITURATES URINE NEGATIVE (NEGATIVE); BENZODIAZEPINES URINE NEGATIVE (NEGATIVE); CANNABINOIDS URINE NEGATIVE (NEGATIVE); COCAINE METABOLITE URINE NEGATIVE (NEGATIVE); METHADONE URINE NEGATIVE (NEGATIVE); OPIATES URINE NEGATIVE (NEGATIVE); PHENCYCLIDINE URINE NEGATIVE (NEGATIVE)
[2020-05-25 16:45] LABS: ACETAMINOPHEN LEVEL < 2.0 UG/ML (10.0-30.0); ALBUMIN 3.6 GM/DL (3.2-5.2); ALT/SGPT 20 U/L (12-78); BILIRUBIN,DIRECT < 0.1 MG/DL (0.0-0.2); BILIRUBIN,TOTAL 0.3 MG/DL (0.2-1.0); BLOOD UREA NITROGEN 16 MG/DL (7-18); CALCIUM LEVEL 9.1 MG/DL (8.8-10.2); CARBON DIOXIDE LEVEL 26 MEQ/L (21-32); CHLORIDE LEVEL 107 MEQ/L (98-107); CREATININE FOR GFR 0.88 MG/DL (0.55-1.30); ETHYL ALCOHOL (ETHANOL) < 0.003 % (0.000-0.010); GLOMERULAR FILTRATION RATE > 60.0 (>45); GLUCOSE, FASTING 101 MG/DL (70-100); POTASSIUM SERUM 4.2 MEQ/L (3.5-5.1); SALICYLATE LEVEL 4.6 MG/DL (5.0-30.0); SODIUM LEVEL 138 MEQ/L (136-145); THYROID STIMULATING HORMONE 0.378 uIU/ML (0.358-3.740); TOTAL PROTEIN 7.2 GM/DL (6.4-8.2); VALPROIC ACID (DEPAKOTE) < 3.0 UG/ML (50.0-100.0)
[2020-05-25] MEDS ORDERED: MOM 30ML SUSPENSION UDC PO PRN (17:45)
[2020-05-25 21:57] VITALS: BP 124/64
[2020-05-26] MEDS ORDERED: LORazepam 2 MG/ML VIAL IM STA (01:04)
[2020-05-26] MEDS ORDERED: HALOPERIDOL 5MG/ML VIAL (J1630 PER 1) IM STA (01:04)
[2020-05-26] MEDS ORDERED: diphenhydrAMINE 50MG/ML VIAL (J1200) IM STA (01:04)
[2020-05-26 06:45] VITALS: BP 129/69
--- NOTE | 2020-05-26 07:50 | MHHPEPDOC ---
[facility] History & Physical History and Physical DATE OF ADMISSION: May 25, 2020 at 17:44 Subjective HPI: The patient is attempted to be met with however she yells incoherently. She reportedly was brought into [facility] after decompensating over the last several weeks, encountering the police more often, becoming more disturbed. Shes currently on AOT treatment for poor compliance and reportedly is in the apartment program at [facility] which has placed her out of compliance, and she subsequently had a pickup order called on her by the OT coordinator brought her in and had her admitted. The patient is unable to participate in any reasonable interview as even at her baseline, she is generally not conversive. She appears to be generally psychotic giving yes and no answers from time to time. MEDICAL HISTORY: She has a history of schizophrenia on AOT previously treatment with Invega, Zyprexa, and even Clozaril at times. Unknown if she has any history of suicides attempts. Currently, sees [facility]. History of hypertension, diabetes, and other age-related and metabolic problems generally well controlled in terms of those treatments. FAMILY HISTORY: No changes from previous. Reportedly had been alienated from her family early on due to her mental illness. SOCIAL HISTORY - OCCUPATION: Has been decompensating, encountering police. Shes disabled on social security assistance. SOCIAL HISTORY - LIVING SITUATION: Lives in the apartment at [facility]. SOCIAL HISTORY - SUBSTANCE USE: No substance use is noted on her toxicology and generally this has not been a problem on her previous admissions. Objective Appearance: Poor. Behavior: Tangential. Non-linear. Nearly incoherent. Speech: Unable to understand. Motor: No oral facial movements noticed. Although at times, she does appear to move her mouth in an unusual fashion, but this appears quite intermittent. Cognition: Impaired second thought process. Judgement: Poor. Insight: Poor. Assessment F20.9 Schizophrenia, unspecified R41.9 Unspecified symptoms and signs involving cognitive functions and awareness Plan Well admit patient. Likely resume home medications and monitor. There have been some concerns in the past that she might have dementia, however, no neuropsych has been completed. Shes not able to participate in traditional neuropsych testing due to her schizophrenia, and her baseline behaviors likely would need complex consultation from [facility] as an outpatient. Treatment priorities: 1) altered thoughts. As main length of stay is 5-7 days, well coordinate with AOT as potential need for inaudible or even long-term treatment. Its unclear VCT has been tried, however, she will likely need that some on some level if she does not respond to complex augmentation regimens. Vital Signs Vital Signs Date Time Temp Pulse Resp B/P (MAP) Pulse Ox O2 Delivery O2 Flow Rate FiO2 05/26/20 06:45 98.7 78 16 129/69 (89) 92 Room Air Laboratory Data 24H Labs Laboratory Tests 2 05/25/20 14:55: Nucleated Red Blood Cells % (auto) 0.0, Urine Opiates Screen NEGATIVE, Urine Methadone Screen NEGATIVE, Urine Barbiturates Screen NEGATIVE, Urine Phency clidine Screen NEGATIVE, Urine Amphetamines Screen NEGATIVE, Urine Benzodiazepines Screen NEGATIVE, Urine Cocaine Metabolite Screen NEGATIVE, Urine Cannabinoids Screen NEGATIVE 05/25/20 15:55: Anion Gap 5L, Glomerular Filtration Rate > 60.0, Calcium Level 9.1, Total Bilirubin 0.3, Direct Bilirubin < 0.1, Aspartate Amino Transf (AST/SGOT) 17, Alanine Aminotransferase (ALT/SGPT) 20, Alkaline Phosphatase 102, Total Protein 7.2, Albumin 3.6, Albumin/Globulin Ratio 1.0L, Thyroid Stimulating Hormone (TSH) 0.378, Salicylates Level 4.6L, Acetaminophen Level < 2.0L, Valproic Acid (D epakene) Level < 3.0L, Ethyl Alcohol Level < 0.003 CBC/BMP Laboratory Tests 05/25/20 14:55 05/25/20 15:55 Medications No Active Prescriptions or Reported Meds Allergies Coded Allergies: No Known Allergies (Verified , 10/30/03) OLY WU DO May 26, 2020 07:50
[2020-05-26] MEDS: OLANZapine ORAL DISINTEGRATING TAB 5MG PO PRN ×3 (11:46→20:55)
[2020-05-26 16:22] VITALS: BP 116/78
--- NOTE | 2020-05-26 17:06 | HPEPDOC ---
[facility] Medical History & Physical Date of Admission May 26, 2020 Date of Service: May 26, 2020 History and Physical Chief complaint: Presented to [facility] brought in by police at the direction of her psychiatrist because patient was noncompliant with her outpatient medication program History of present illness: Patient is a 69-year-old female Schizoaffective disorder, Schizophrenia and Depression who was brought to the emergency room by police at the direction of her psychiatrist because patient was noncompliant with her outpatient medication program. Patient has been admitted to inpatient mental health unit under the care of psychiatry hospitalist services consultation for medical screening evaluation. Currently patient appears to be very fidgety and moving around in room and difficult to understand. She denies any nausea, vomiting, chest pain, shortness breath, cough, abdominal pain, and constipation, diarrhea or urinary discomfort. Does report a mild headache. Denies any changes in her appetite. 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 Review of Systems: 10 point review of systems complete, all negative otherwise stated in HPI Physical exam: - Vitals: BP [116/78], HR [78], RR [14], Sat [97%RA], Temp [98.7F] - General: Lying in bed, Appears comfortable, Difficult to understanding, Awake / Alert - HEENT: NC, AT, PERRLA, EOMI - CVS: RRR, +S1S2 - Lungs: Fair air entry bilaterally, No appreciable wheezing / rales / rhonchi - Abdomen: Soft, Non-distended, Non-tender - Extremities: No lower extremity edema, No calf tenderness - Neuro: No focal motor or sensory deficit - Skin: No visible rashes Assessment and Plan: Schizoaffective disorder, Schizophrenia and Depression - Admitted to [facility] under the care of psychiatry - Managed by psychiatry No significant medical problems noted DVT prophylaxis - Will continue with early ambulation Female [place] river guide was present throughout the duration of his history and physical examination Thank you for this consultation; please reconsult as needed; hospitalist service will sign off Vital Signs Vital Signs Date Time Temp Pulse Resp B/P (MAP) Pulse Ox O2 Delivery O2 Flow Rate FiO2 05/26/20 16:22 97.6 102 14 116/78 (91) 05/26/20 06:45 92 Room Air Home Medications No Active Prescriptions or Reported Meds Allergies Coded Allergies: No Known Allergies (Verified , 10/30/03) JENNI CARDOZO MD May 26, 2020 17:06
[2020-05-26] MEDS ORDERED: LORazepam 2 MG TAB PO STA (19:38)
[2020-05-26] MEDS ORDERED: diphenhydrAMINE 50MG CAP PO STA (19:38)
[2020-05-26] MEDS: traZODone 50 MG TAB PO PRN (19:49)
[2020-05-27] MEDS: diphenhydrAMINE 50MG CAP PO ONE ×2 (00:28→00:39)
[2020-05-27] MEDS ORDERED: LORazepam 2 MG TAB PO ONE (00:30)
[2020-05-27] MEDS ORDERED: HALOPERIDOL 5MG/ML VIAL (J1630 PER 1) IM STA (01:23)
[2020-05-27 01:30] VITALS: BP 125/83
[2020-05-27 01:45] VITALS: BP 133/77
[2020-05-27 02:00] VITALS: BP 138/85
[2020-05-27 02:15] VITALS: BP 130/94
[2020-05-27 07:05] VITALS: BP 138/74
[2020-05-27] MEDS ORDERED: PREVNAR 13 VACCINE SYRINGE IM ONE (09:00)
[2020-05-27] MEDS ORDERED: FLUBLOK(EGG FREE)(QUAD)INFLUENZA VACC 0.5ML SYRINGE 18YRS & OLDER IM ONE (09:00)
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
[2020-05-27 18:13] VITALS: BP 158/91
[2020-05-27] MEDS: traZODone 50 MG TAB PO PRN (22:39)
[2020-05-27] MEDS: OLANZapine ORAL DISINTEGRATING TAB 5MG PO PRN (22:39)
[2020-05-27] MEDS: ACETAMINOPHEN TAB 650MG DOSE (2X325MG) PO PRN (22:40)
[2020-05-28] MEDS: OLANZapine ORAL DISINTEGRATING TAB 5MG PO PRN (12:29)
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
[2020-05-28 18:00] VITALS: BP 147/86
[2020-05-29 06:41] VITALS: BP 143/76
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
[2020-05-29 18:00] VITALS: BP 134/81
[2020-05-30 06:11] VITALS: BP 146/82
--- NOTE | 2020-05-30 10:15 | MHIPNPDOC ---
[facility] Progress Note Progress Note DATE OF SERVICE: 05/30/20 Subjective HPI: Samira presents today for a follow-up. Attempted to meet with patient, however she is isolated to her room. She is generally incoherent although she does not appear to be as aggressive or labile as she had been previously. Nurse reports she had done well off the sitter. MEDICATIONS: She had not been restarted on the previous medication from when she was last here and does not appear to have been started on any medications when she left. Objective Behavior: Incoherent, not logical, and nearly unable to be understood. Smiles more, hygiene poor. Judgement: Poor. Insight: Poor. Baseline, however doesnt appear as labile. Assessment F20.9 Schizophrenia, unspecified Plan Resume previous Zyprexa 10 mg BID, Depakote 250 mg BID, and Cogentin 0.5 mg PRN daily for EPS. This might stabilize the patient as she may have not been taking medications after she left; does not appear she had gotten the Invega shots since February. Vital Signs Vital Signs Date Time Temp Pulse Resp B/P (MAP) Pulse Ox O2 Delivery O2 Flow Rate FiO2 05/30/20 06:11 96.9 103 18 146/82 (103) 95 Room Air Current Medications Current Medications Medications (Trade) Dose Ordered Sig/Holly Route PRN Reason Start Time Stop Time Status Last Admin Dose Admin Acetaminophen (Tylenol Tab) 650 mg Q6HP PRN PO HEADACHE or DISCOMFORT 05/25/20 17:45 05/27/20 22:40 Al Hydrox/Mg Hydrox/Simethicone (Mylanta) 30 ml Q4HP PRN PO HEARTBURN/INDIGESTION 05/25/20 17:45 Diphenhydramine HCl (Benadryl) 50 mg STAT STAT IM 05/26/20 01:04 05/26/20 01:06 DC 05/26/20 01:22 Diphenhydramine HCl (Benadryl) 50 mg STAT STAT PO 05/26/20 19:38 05/26/20 19:44 DC 05/26/20 19:48 Haloperidol (Haldol) 10 mg STAT STAT IM 05/26/20 01:04 05/26/20 01:06 DC 05/26/20 01:22 Haloperidol (Haldol) 10 mg STAT STAT IM 05/27/20 01:23 05/27/20 01:25 DC 05/27/20 01:28 Haloperidol (Haldol) 10 mg STAT STAT PO 05/26/20 19:38 05/26/20 19:44 DC 05/26/20 19:48 Home Med (Med Rec Complete!) ASDIRECTED XX 05/25/20 16:15 05/25/20 16:17 DC Lorazepam (Ativan) 2 mg STAT STAT IM 05/26/20 01:04 05/26/20 01:06 DC 05/26/20 01:23 Lorazepam (Ativan) 2 mg STAT STAT PO 05/26/20 19:38 05/26/20 19:44 DC 05/26/20 19:47 Magnesium Hydroxide (Milk Of Magnesia) 30 ml DAILYPRN PRN PO CONSTIPATION 05/25/20 17:45 Olanzapine (ZyPREXA ZYDIS) 10 mg Q4HP PRN PO ANXIETY/AGITATION 05/25/20 17:45 05/28/20 12:29 Trazodone HCl (Desyrel) 50 mg QHSP PRN PO INSOMNIA 05/25/20 17:45 05/27/20 22:39 Allergies Coded Allergies: No Known Allergies (Verified , 10/30/03) OLY WU DO May 30, 2020 10:15
[2020-05-30] MEDS ORDERED: BENZTROPINE 0.5 MG TAB PO PRN (11:15)
[2020-05-30] MEDS: DIVALPROEX 250MG *ER* TAB PO SCH ×2 (11:26→21:00)
[2020-05-30] MEDS: OLANZapine ORAL DISINTEGRATING TAB 5MG PO SCH ×2 (11:27→21:00)
[2020-05-30 16:51] VITALS: BP 116/72
[2020-05-31] MEDS: DIVALPROEX 250MG *ER* TAB PO SCH ×2 (10:23→21:00)
[2020-05-31] MEDS: OLANZapine ORAL DISINTEGRATING TAB 5MG PO SCH ×2 (10:23→21:00)
--- NOTE | 2020-05-31 14:50 | MHIPNPDOC ---
[facility] Progress Note Progress Note DATE OF SERVICE: 05/31/20 Subjective HPI: Patient presents today for appointment, and I am attempting to meet with her. She is still crying in the hallway, but doesn't respond to me attempting to engage her. MEDICAL HISTORY: She hasnt had any agitation episodes overnight. Objective Mood: labile. Tearful. Speech: Tangential nearly incoherent. Judgement: Poor. Insight: Poor. Assessment F25.9 Schizoaffective disorder, unspecified Plan Continue home medication Doesn't need one-to-one making some progress. Vital Signs Vital Signs Date Time Temp Pulse Resp B/P (MAP) Pulse Ox O2 Delivery O2 Flow Rate FiO2 05/30/20 16:51 98.5 99 20 116/72 (87) 05/30/20 06:11 95 Room Air Current Medications Current Medications Medications (Trade) Dose Ordered Sig/Holly Route PRN Reason Start Time Stop Time Status Last Admin Dose Admin Acetaminophen (Tylenol Tab) 650 mg Q6HP PRN PO HEADACHE or DISCOMFORT 05/25/20 17:45 05/27/20 22:40 Al Hydrox/Mg Hydrox/Simethicone (Mylanta) 30 ml Q4HP PRN PO HEARTBURN/INDIGESTION 05/25/20 17:45 Benztropine Mesylate (Cogentin) 0.5 mg DAILY PRN PO eps 05/30/20 11:15 Diphenhydramine HCl (Benadryl) 50 mg STAT STAT IM 05/26/20 01:04 05/26/20 01:06 DC 05/26/20 01:22 Diphenhydramine HCl (Benadryl) 50 mg STAT STAT PO 05/26/20 19:38 05/26/20 19:44 DC 05/26/20 19:48 Divalproex Sodium (Depakote Er) 250 mg BID PO 05/30/20 09:00 05/31/20 10:23 Haloperidol (Haldol) 10 mg STAT STAT IM 05/26/20 01:04 05/26/20 01:06 DC 05/26/20 01:22 Haloperidol (Haldol) 10 mg STAT STAT IM 05/27/20 01:23 05/27/20 01:25 DC 05/27/20 01:28 Haloperidol (Haldol) 10 mg STAT STAT PO 05/26/20 19:38 05/26/20 19:44 DC 05/26/20 19:48 Home Med (Med Rec Complete!) ASDIRECTED XX 05/25/20 16:15 05/25/20 16:17 DC Lorazepam (Ativan) 2 mg STAT STAT IM 05/26/20 01:04 05/26/20 01:06 DC 05/26/20 01:23 Lorazepam (Ativan) 2 mg STAT STAT PO 05/26/20 19:38 05/26/20 19:44 DC 05/26/20 19:47 Magnesium Hydroxide (Milk Of Magnesia) 30 ml DAILYPRN PRN PO CONSTIPATION 05/25/20 17:45 Olanzapine (ZyPREXA ZYDIS) 10 mg BID PO 05/30/20 09:00 05/31/20 10:23 Olanzapine (ZyPREXA ZYDIS) 10 mg Q4HP PRN PO ANXIETY/AGITATION 05/25/20 17:45 05/28/20 12:29 Trazodone HCl (Desyrel) 50 mg QHSP PRN PO INSOMNIA 05/25/20 17:45 05/27/20 22:39 Allergies Coded Allergies: No Known Allergies (Verified , 10/30/03) OLY WU DO May 31, 2020 14:50
[2020-05-31 16:27] VITALS: BP 136/73
[2020-06-01 06:21] VITALS: BP 168/74
[2020-06-01] MEDS ORDERED: FLUBLOK(EGG FREE)(QUAD)INFLUENZA VACC 0.5ML SYRINGE 18YRS & OLDER IM ONE (09:00)
[2020-06-01] MEDS ORDERED: PREVNAR 13 VACCINE SYRINGE IM ONE (09:00)
--- NOTE | 2020-06-01 09:49 | MHIPNPDOC ---
[facility] Progress Note Progress Note DATE OF SERVICE: 06/01/20 Subjective HPI: Samira presents today for concerns regarding her schizophrenia. She generally remains incoherent today, yelling and screaming throughout the day. She hasn't had any episodes of agitation overnight. Although at night, she does get into screaming fits, and continues upon being checked up on. Objective Appearance: Poor Hygiene. Speech: Loud. Thought Form: Incoherent at times. Judgement: Poor. Insight: Poor. Assessment F20.0 Paranoid schizophrenia Plan Continue Zyprexa and Depakote. Concerned about increasing too readily because of advanced age. She has a history of poor compliance with medications. She is currently not in TLS at this time, which appears to be part of her assisted outpatient treatment program. This would likely be a critical part to keeping her stable, as she may not be able to manage her advanced symptoms. There have been suggestions of concerns of neuropsychiatric problems, but difficult to ascertain from her baseline psychotic state. Neuropsychological testing has not been completed as far as this provider. Vital Signs Vital Signs Date Time Temp Pulse Resp B/P (MAP) Pulse Ox O2 Delivery O2 Flow Rate FiO2 06/01/20 07:56 Room Air 06/01/20 06:21 96.5 86 18 168/74 (105) 05/30/20 06:11 95 Current Medications Current Medications Medications (Trade) Dose Ordered Sig/Holly Route PRN Reason Start Time Stop Time Status Last Admin Dose Admin Acetaminophen (Tylenol Tab) 650 mg Q6HP PRN PO HEADACHE or DISCOMFORT 05/25/20 17:45 05/27/20 22:40 Al Hydrox/Mg Hydrox/Simethicone (Mylanta) 30 ml Q4HP PRN PO HEARTBURN/INDIGESTION 05/25/20 17:45 Benztropine Mesylate (Cogentin) 0.5 mg DAILY PRN PO eps 05/30/20 11:15 Diphenhydramine HCl (Benadryl) 50 mg STAT STAT IM 05/26/20 01:04 05/26/20 01:06 DC 05/26/20 01:22 Diphenhydramine HCl (Benadryl) 50 mg STAT STAT PO 05/26/20 19:38 05/26/20 19:44 DC 05/26/20 19:48 Divalproex Sodium (Depakote Er) 250 mg BID PO 05/30/20 09:00 05/31/20 10:23 Haloperidol (Haldol) 10 mg STAT STAT IM 05/26/20 01:04 05/26/20 01:06 DC 05/26/20 01:22 Haloperidol (Haldol) 10 mg STAT STAT IM 05/27/20 01:23 05/27/20 01:25 DC 05/27/20 01:28 Haloperidol (Haldol) 10 mg STAT STAT PO 05/26/20 19:38 05/26/20 19:44 DC 05/26/20 19:48 Home Med (Med Rec Complete!) ASDIRECTED XX 05/25/20 16:15 05/25/20 16:17 DC Lorazepam (Ativan) 2 mg STAT STAT IM 05/26/20 01:04 05/26/20 01:06 DC 05/26/20 01:23 Lorazepam (Ativan) 2 mg STAT STAT PO 05/26/20 19:38 05/26/20 19:44 DC 05/26/20 19:47 Magnesium Hydroxide (Milk Of Magnesia) 30 ml DAILYPRN PRN PO CONSTIPATION 05/25/20 17:45 Olanzapine (ZyPREXA ZYDIS) 10 mg BID PO 05/30/20 09:00 05/31/20 10:23 Olanzapine (ZyPREXA ZYDIS) 10 mg Q4HP PRN PO ANXIETY/AGITATION 05/25/20 17:45 05/28/20 12:29 Trazodone HCl (Desyrel) 50 mg QHSP PRN PO INSOMNIA 05/25/20 17:45 05/27/20 22:39 Allergies Coded Allergies: No Known Allergies (Verified , 10/30/03) OLY WU DO Jun 01, 2020 09:49
[2020-06-01] MEDS ORDERED: PREVNAR 13 VACCINE SYRINGE IM SCH (11:30)
[2020-06-01] MEDS ORDERED: FLUBLOK(EGG FREE)(QUAD)INFLUENZA VACC 0.5ML SYRINGE 18YRS & OLDER IM SCH (11:30)
[2020-06-01] MEDS: OLANZapine ORAL DISINTEGRATING TAB 5MG PO SCH ×2 (11:46→21:00)
[2020-06-01] MEDS: DIVALPROEX 250MG *ER* TAB PO SCH ×2 (11:46→21:00)
[2020-06-01 16:06] VITALS: BP 136/90
[2020-06-02 06:25] VITALS: BP 142/92
[2020-06-02] MEDS: OLANZapine ORAL DISINTEGRATING TAB 5MG PO SCH (09:00)
[2020-06-02] MEDS: DIVALPROEX 250MG *ER* TAB PO SCH (09:00)
--- NOTE | 2020-06-02 09:32 | MHIPNPDOC ---
[facility] Progress Note Progress Note DATE OF SERVICE: 06/02/20 Subjective HPI: The patient was met with today in her room. She had been screaming earlier in the day at unseen others. However, when met with, she was generally talkative. She reported that she was going today, that her regional truck driver would be coming to pick her up. She was genuinely engaged, more smiling, but elated in an unusual way. She didn't appear to understand the gravity of her situation. She reports that she wasn't aware that she was on OT, but it's still tangential in nature. She's open to try Vraylar, as she doesn't want to try Zyprexa. So she's been refusing her Zyprexa today, reporting that it's poison. Objective Appearance: Hygiene poor. Affect: Full range. Appropriate to context. Tangential, pleasant, at times elated. Speech: Incoherent at times. Rapid at times. Cognition: Impaired secondary thought process. Judgement: Poor. Insight: Poor. Assessment F25.0 Schizoaffective disorder, bipolar type Plan Plan is to discontinue Zyprexa. Try Vraylar, 1.5 milligrams as she has failed other agents. She may likely need Winona, long-term. We will start referral process, as she is much more disturbed than she's previously been. Vital Signs Vital Signs Date Time Temp Pulse Resp B/P (MAP) Pulse Ox O2 Delivery O2 Flow Rate FiO2 06/02/20 06:25 98.4 85 16 142/92 (109) 96 Room Air Current Medications Current Medications Medications (Trade) Dose Ordered Sig/Holly Route PRN Reason Start Time Stop Time Status Last Admin Dose Admin Acetaminophen (Tylenol Tab) 650 mg Q6HP PRN PO HEADACHE or DISCOMFORT 05/25/20 17:45 05/27/20 22:40 Al Hydrox/Mg Hydrox/Simethicone (Mylanta) 30 ml Q4HP PRN PO HEARTBURN/INDIGESTION 05/25/20 17:45 Benztropine Mesylate (Cogentin) 0.5 mg DAILY PRN PO eps 05/30/20 11:15 Diphenhydramine HCl (Benadryl) 50 mg STAT STAT IM 05/26/20 01:04 05/26/20 01:06 DC 05/26/20 01:22 Diphenhydramine HCl (Benadryl) 50 mg STAT STAT PO 05/26/20 19:38 05/26/20 19:44 DC 05/26/20 19:48 Divalproex Sodium (Depakote Er) 250 mg BID PO 05/30/20 09:00 06/01/20 11:46 Haloperidol (Haldol) 10 mg STAT STAT IM 05/26/20 01:04 05/26/20 01:06 DC 05/26/20 01:22 Haloperidol (Haldol) 10 mg STAT STAT IM 05/27/20 01:23 05/27/20 01:25 DC 05/27/20 01:28 Haloperidol (Haldol) 10 mg STAT STAT PO 05/26/20 19:38 05/26/20 19:44 DC 05/26/20 19:48 Home Med (Med Rec Complete!) ASDIRECTED XX 05/25/20 16:15 05/25/20 16:17 DC Influenza Virus Vaccine (Flublok Quad(Egg-Free)18y&Older Influenza) 0.5 ml ASDIRECTED IM 06/01/20 11:30 Lorazepam (Ativan) 2 mg STAT STAT IM 05/26/20 01:04 05/26/20 01:06 DC 05/26/20 01:23 Lorazepam (Ativan) 2 mg STAT STAT PO 05/26/20 19:38 05/26/20 19:44 DC 05/26/20 19:47 Magnesium Hydroxide (Milk Of Magnesia) 30 ml DAILYPRN PRN PO CONSTIPATION 05/25/20 17:45 Olanzapine (ZyPREXA ZYDIS) 10 mg BID PO 05/30/20 09:00 06/01/20 11:46 Olanzapine (ZyPREXA ZYDIS) 10 mg Q4HP PRN PO ANXIETY/AGITATION 05/25/20 17:45 05/28/20 12:29 Pneumococcal Polyvalent Vaccine (Prevnar 13) 0.5 ml ASDIRECTED IM 06/01/20 11:30 Trazodone HCl (Desyrel) 50 mg QHSP PRN PO INSOMNIA 05/25/20 17:45 05/27/20 22:39 Allergies Coded Allergies: No Known Allergies (Verified , 10/30/03) OLY WU DO Jun 02, 2020 09:32
[2020-06-02] MEDS ORDERED: TUBERCULIN PPD 5 UNITS/0.1 ML ID ONE (12:00)
[2020-06-02 18:43] VITALS: BP 142/82
[2020-06-02] MEDS ORDERED: OLANZapine ORAL DISINTEGRATING TAB 5MG PO SCH (21:00)
[2020-06-02] MEDS: DIVALPROEX 500MG *ER* TAB PO SCH (21:00)
[2020-06-03 06:20] VITALS: BP 118/75
[2020-06-03] MEDS: DIVALPROEX 500MG *ER* TAB PO SCH ×2 (09:00→20:49)
[2020-06-03] MEDS: CARIPRAZINE 1.5MG CAPSULE (VRAYLAR) PO SCH (09:00)
--- NOTE | 2020-06-03 10:11 | MHIPNPDOC ---
[facility] Progress Note Progress Note DATE OF SERVICE: 06/03/20 Subjective HPI: patient is unable to be met with as she is screaming at provider she generally reports she wants to go, but is unable to explain why,she demands marijuana and continues to yell and scream in her room. Objective Appearance: Hygiene poor. Affect: labile Appropriate to context. Tangential, pleasant, at times elated. Speech: Incoherent at times. Rapid at times. Cognition: Impaired secondary thought process. Judgement: Poor. Insight: Poor. Assessment F25.0 Schizoaffective disorder, bipolar type Plan Plan is to discontinue Zyprexa. Try Vraylar, 1.5 milligrams as she has failed other agents. She may likely need [place], long-term. We will start referral process, as she is much more disturbed than she's previously been. Vital Signs Vital Signs Date Time Temp Pulse Resp B/P (MAP) Pulse Ox O2 Delivery O2 Flow Rate FiO2 06/03/20 06:20 96.9 90 17 118/75 (89) Room Air 06/02/20 06:25 96 Current Medications Current Medications Medications (Trade) Dose Ordered Sig/Holly Route PRN Reason Start Time Stop Time Status Last Admin Dose Admin Acetaminophen (Tylenol Tab) 650 mg Q6HP PRN PO HEADACHE or DISCOMFORT 05/25/20 17:45 05/27/20 22:40 Al Hydrox/Mg Hydrox/Simethicone (Mylanta) 30 ml Q4HP PRN PO HEARTBURN/INDIGESTION 05/25/20 17:45 Benztropine Mesylate (Cogentin) 0.5 mg DAILY PRN PO eps 05/30/20 11:15 Cariprazine (Vraylar) 1.5 mg DAILY PO 06/03/20 09:00 Diphenhydramine HCl (Benadryl) 50 mg STAT STAT IM 05/26/20 01:04 05/26/20 01:06 DC 05/26/20 01:22 Diphenhydramine HCl (Benadryl) 50 mg STAT STAT PO 05/26/20 19:38 05/26/20 19:44 DC 05/26/20 19:48 Divalproex Sodium (Depakote Er) 250 mg BID PO 05/30/20 09:00 06/02/20 11:31 DC 06/01/20 11:46 Divalproex Sodium (Depakote Er) 500 mg BID PO 06/02/20 21:00 Haloperidol (Haldol) 10 mg STAT STAT IM 05/26/20 01:04 05/26/20 01:06 DC 05/26/20 01:22 Haloperidol (Haldol) 10 mg STAT STAT IM 05/27/20 01:23 05/27/20 01:25 DC 05/27/20 01:28 Haloperidol (Haldol) 10 mg STAT STAT PO 05/26/20 19:38 05/26/20 19:44 DC 05/26/20 19:48 Home Med (Med Rec Complete!) ASDIRECTED XX 05/25/20 16:15 05/25/20 16:17 DC Influenza Virus Vaccine (Flublok Quad(Egg-Free)18y&Older Influenza) 0.5 ml ASDIRECTED IM 06/01/20 11:30 Lorazepam (Ativan) 2 mg STAT STAT IM 05/26/20 01:04 05/26/20 01:06 DC 05/26/20 01:23 Lorazepam (Ativan) 2 mg STAT STAT PO 05/26/20 19:38 05/26/20 19:44 DC 05/26/20 19:47 Magnesium Hydroxide (Milk Of Magnesia) 30 ml DAILYPRN PRN PO CONSTIPATION 05/25/20 17:45 Olanzapine (ZyPREXA ZYDIS) 10 mg BID PO 05/30/20 09:00 06/02/20 11:31 DC 06/01/20 11:46 Olanzapine (ZyPREXA ZYDIS) 10 mg Q4HP PRN PO ANXIETY/AGITATION 05/25/20 17:45 05/28/20 12:29 Olanzapine (ZyPREXA ZYDIS) 15 mg BID PO 06/02/20 21:00 06/02/20 12:08 DC Pneumococcal Polyvalent Vaccine (Prevnar 13) 0.5 ml ASDIRECTED IM 06/01/20 11:30 Trazodone HCl (Desyrel) 50 mg QHSP PRN PO INSOMNIA 05/25/20 17:45 05/27/20 22:39 Allergies Coded Allergies: No Known Allergies (Verified , 10/30/03) OLY WU 18, 2020 10:11
[2020-06-03 16:34] VITALS: BP 133/76
[2020-06-04 06:36] VITALS: BP_SYST 127; BP_DIAS 25; BP_DIAS 75
[2020-06-04] MEDS: CARIPRAZINE 1.5MG CAPSULE (VRAYLAR) PO SCH (09:00)
[2020-06-04] MEDS: DIVALPROEX 500MG *ER* TAB PO SCH ×2 (09:00→20:57)
[2020-06-04] MEDS ORDERED: PPD DOCUMENTATION ENTRY MISC XX ONE (12:00)
--- NOTE | 2020-06-04 12:27 | MHIPNPDOC ---
[facility] Progress Note Progress Note DATE OF SERVICE: The patient was seen on 06/07/20. ADMIT DATE: May 25, 2020 at 17:44 ATTENDING DOCTOR: Oly Arnett DO FAMILY CONTACTS: N/A, contacts only available from AOT coordinator SECTION I: CLINICAL SUMMARY: 69-year-old month a long history of schizophrenia versus schizoaffective disorder, presented after decompensating for several weeks, she is currently on assisted outpatient treatment where she had been noncompliant and brought in, she was notably aggressive and distorted when she 1st arrived. However, she quickly stopped taking medication, stating that "poison". DIAGNOSIS: schizoaffective disorder, unspecified SECTION II: Proposed Treatment. 1. Course of treatment recommended by treating physician: To prescribe an antipsychotic as the follows: Oral medication: Abilify 5 mg to 30 mg daily in divided doses,or Zyprexa 5 mg to 30 mg in divided doses,or paliperidone 3 to 12 mg in divided doses,or risperidone 1 to 6 mg in daily divided doses,or Vrylar 1.5 to 6mg daily,or Seroquel 25 to 900 mg daily in divided doses Any combination as deemed efficacious if one individual medication does not provide sufficient reduction of symptoms Intramuscular, to be used if refused: Haldol, 2 to 30 mg daily in divided doses; or Thorazine 25 to 900 mg in divided daily doses; or Zyprexa 5 to 30 mg daily in divided doses or Prolixin 5 mg to 30 mg in daily divided doses Any combination as deemed efficacious if one individual medication does not provide sufficient reduction of symptoms Long-acting, to be used if related oral medicine is tolerated and efficacious: Abilify long-acting 300 to 400 monthly, or Paliperidone long-acting 156 to 254 mg monthly, or Haldol long-acting 20 to 100 mg monthly, or any combination deemed efficacious in combination with oral or long-acting medicines to reduce symptoms, If one is deemed not sufficient alone. Medical procedures and antidotes: Forcible restraint to do required electrocardiogram monitoring, blood monitoring to ensure individuals not placed it excessive risk of danger, even if refused Cogentin 0.5 to up to a total of 4 mg per day in divided (intramuscular) doses if Parkinsonian symptoms are evident. Electroconvulsive treatment, to be used only in condition that all medication options fail to control symptoms, patient would need to be ordered to the closest local facility for electroconvulsive treatment such as [facility] in [place] or other suitable location 2. Reasonable alternatives if any are: As above 3. Has the patient been tried on the proposed treatment? Yes, at one time or another she is been tried on all of treatments, with the exception of electroconvulsive 4. Anticipated benefits to proposed treatment Control of her aggression and her severe disorganization, making her a danger to herself and others 5. Reasonably foreseeable adverse side effects: [Parkinsonian symptoms, weight gain, sedation, side effects of neuroleptics. In rare cases, neuroleptic malignant syndrome and tardive dyskinesia may develop. However, the treatment team believes that the benefit outweighs any risk.] 6. Prognosis without treatment: very Grim, will likely remain heavily impaired and injure others SECTION III: Patient's capacity. 1. Explained to the patient: A. Condition: yes B. Proposed treatment: yes C. Anticipated benefits of treatment: yes D. Risks of adverse side effects of treatment: yes E. Availability of other treatments and comparison of benefits and risks: yes F. Risk of no treatment: yes 2. State the nature of the patient's objections to treatment:. 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 The patient's capacity: severely limited SECTION IV: LIKELIHOOD FOR DANGEROUS BEHAVIOR: 1. The patient is believed to be dangerous to other at the hospital unless treated: yes, has been aggressive on the unit, attacking others quickly after she was admitted 2. Is the patient believed to be likely dangerous to self if not treated: severe disorganization, leading her to be unable to take care of herself SECTION V: ANY OTHER INFORMATION: N/A Vital Signs Vital Signs Date Time Temp Pulse Resp B/P (MAP) Pulse Ox O2 Delivery O2 Flow Rate FiO2 06/04/20 06:36 98.0 77 14 127/25 (59) Room Air 06/02/20 06:25 96 Current Medications Current Medications Medications (Trade) Dose Ordered Sig/Holly Route PRN Reason Start Time Stop Time Status Last Admin Dose Admin Acetaminophen (Tylenol Tab) 650 mg Q6HP PRN PO HEADACHE or DISCOMFORT 05/25/20 17:45 05/27/20 22:40 Al Hydrox/Mg Hydrox/Simethicone (Mylanta) 30 ml Q4HP PRN PO HEARTBURN/INDIGESTION 05/25/20 17:45 Benztropine Mesylate (Cogentin) 0.5 mg DAILY PRN PO eps 05/30/20 11:15 Cariprazine (Vraylar) 1.5 mg DAILY PO 06/03/20 09:00 Diphenhydramine HCl (Benadryl) 50 mg STAT STAT IM 05/26/20 01:04 05/26/20 01:06 DC 05/26/20 01:22 Diphenhydramine HCl (Benadryl) 50 mg STAT STAT PO 05/26/20 19:38 05/26/20 19:44 DC 05/26/20 19:48 Divalproex Sodium (Depakote Er) 250 mg BID PO 05/30/20 09:00 06/02/20 11:31 DC 06/01/20 11:46 Divalproex Sodium (Depakote Er) 500 mg BID PO 06/02/20 21:00 Haloperidol (Haldol) 10 mg STAT STAT IM 05/26/20 01:04 05/26/20 01:06 DC 05/26/20 01:22 Haloperidol (Haldol) 10 mg STAT STAT IM 05/27/20 01:23 05/27/20 01:25 DC 05/27/20 01:28 Haloperidol (Haldol) 10 mg STAT STAT PO 05/26/20 19:38 05/26/20 19:44 DC 05/26/20 19:48 Home Med (Med Rec Complete!) ASDIRECTED XX 05/25/20 16:15 05/25/20 16:17 DC Influenza Virus Vaccine (Flublok Quad(Egg-Free)18y&Older Influenza) 0.5 ml ASDIRECTED IM 06/01/20 11:30 Lorazepam (Ativan) 2 mg STAT STAT IM 05/26/20 01:04 05/26/20 01:06 DC 05/26/20 01:23 Lorazepam (Ativan) 2 mg STAT STAT PO 05/26/20 19:38 05/26/20 19:44 DC 05/26/20 19:47 Magnesium Hydroxide (Milk Of Magnesia) 30 ml DAILYPRN PRN PO CONSTIPATION 05/25/20 17:45 Olanzapine (ZyPREXA ZYDIS) 10 mg BID PO 05/30/20 09:00 06/02/20 11:31 DC 06/01/20 11:46 Olanzapine (ZyPREXA ZYDIS) 10 mg Q4HP PRN PO ANXIETY/AGITATION 05/25/20 17:45 05/28/20 12:29 Olanzapine (ZyPREXA ZYDIS) 15 mg BID PO 06/02/20 21:00 06/02/20 12:08 DC Pneumococcal Polyvalent Vaccine (Prevnar 13) 0.5 ml ASDIRECTED IM 06/01/20 11:30 Trazodone HCl (Desyrel) 50 mg QHSP PRN PO INSOMNIA 05/25/20 17:45 05/27/20 22:39 Allergies Coded Allergies: No Known Allergies (Verified , 10/30/03) OLY ARNETT DO Jun 04, 2020 12:27
[2020-06-04 16:18] VITALS: BP 140/96
[2020-06-05 06:30] VITALS: BP 119/81
[2020-06-05] MEDS: DIVALPROEX 500MG *ER* TAB PO SCH ×2 (09:00→21:00)
[2020-06-05] MEDS: CARIPRAZINE 1.5MG CAPSULE (VRAYLAR) PO SCH (09:00)
[2020-06-05 16:24] VITALS: BP 128/73
[2020-06-06 06:25] VITALS: BP 147/89
[2020-06-06] MEDS: DIVALPROEX 500MG *ER* TAB PO SCH ×2 (09:00→21:00)
[2020-06-06] MEDS: CARIPRAZINE 1.5MG CAPSULE (VRAYLAR) PO SCH (09:00)
[2020-06-07 06:48] VITALS: BP 113/54
[2020-06-07] MEDS: CARIPRAZINE 1.5MG CAPSULE (VRAYLAR) PO SCH (09:00)
[2020-06-07] MEDS: DIVALPROEX 500MG *ER* TAB PO SCH ×2 (09:00→20:21)
--- NOTE | 2020-06-07 09:27 | MHIPNPDOC ---
[facility] Progress Note Progress Note DATE OF SERVICE: 06/07/20 Subjective HPI: Met with patient today. She had been yelling and screaming, however she was more pleasant today. She still states that she doesnt want to take the Vraylar, but when asked specifically why she doesnt remember as to what it is. When I attempted to explain that she has Schizophrenia or bipolar and this is good medicine for it, she said she does not have Schizophrenia or bipolar and feels that this is a mistake. However, when discussing with her the multiple previous hospitalizations and her long treatment with his provider back into his period of training, she is unable to rectify this. AOT coordinator had been contacted. Patient has not been taking medication since he left the hospital last time. She has been generally not engaged and has been declining rapidly into fairly intense symptoms. MEDICATIONS: She continues to refuse Vraylar or any other medication offers. Objective Appearance: Appears to be stated age. Well nourished. Well groomed. Behavior: Incoherent at times. Generally psychotic. Affect: pleasant. elated. Rapidly labile. Speech: Fluid. Thought Form: Tangential. Judgement: Poor. Insight: Poor. Assessment F25.0 Schizoaffective disorder, bipolar type Plan Continue to offer medications Likely treatment over objection. Will continue proceedings at this time. Will attempt to mimic outpatient AOT order. Vital Signs Vital Signs Date Time Temp Pulse Resp B/P (MAP) Pulse Ox O2 Delivery O2 Flow Rate FiO2 06/07/20 06:48 97.7 60 15 113/54 (73) 99 Room Air Current Medications Current Medications Medications (Trade) Dose Ordered Sig/Holly Route PRN Reason Start Time Stop Time Status Last Admin Dose Admin Acetaminophen (Tylenol Tab) 650 mg Q6HP PRN PO HEADACHE or DISCOMFORT 05/25/20 17:45 05/27/20 22:40 Al Hydrox/Mg Hydrox/Simethicone (Mylanta) 30 ml Q4HP PRN PO HEARTBURN/INDIGESTION 05/25/20 17:45 Benztropine Mesylate (Cogentin) 0.5 mg DAILY PRN PO eps 05/30/20 11:15 Cariprazine (Vraylar) 1.5 mg DAILY PO 06/03/20 09:00 Diphenhydramine HCl (Benadryl) 50 mg STAT STAT IM 05/26/20 01:04 05/26/20 01:06 DC 05/26/20 01:22 Diphenhydramine HCl (Benadryl) 50 mg STAT STAT PO 05/26/20 19:38 05/26/20 19:44 DC 05/26/20 19:48 Divalproex Sodium (Depakote Er) 250 mg BID PO 05/30/20 09:00 06/02/20 11:31 DC 06/01/20 11:46 Divalproex Sodium (Depakote Er) 500 mg BID PO 06/02/20 21:00 Haloperidol (Haldol) 10 mg STAT STAT IM 05/26/20 01:04 05/26/20 01:06 DC 05/26/20 01:22 Haloperidol (Haldol) 10 mg STAT STAT IM 05/27/20 01:23 05/27/20 01:25 DC 05/27/20 01:28 Haloperidol (Haldol) 10 mg STAT STAT PO 05/26/20 19:38 05/26/20 19:44 DC 05/26/20 19:48 Home Med (Med Rec Complete!) ASDIRECTED XX 05/25/20 16:15 05/25/20 16:17 DC Influenza Virus Vaccine (Flublok Quad(Egg-Free)18y&Older Influenza) 0.5 ml ASDIRECTED IM 06/01/20 11:30 Lorazepam (Ativan) 2 mg STAT STAT IM 05/26/20 01:04 05/26/20 01:06 DC 05/26/20 01:23 Lorazepam (Ativan) 2 mg STAT STAT PO 05/26/20 19:38 05/26/20 19:44 DC 05/26/20 19:47 Magnesium Hydroxide (Milk Of Magnesia) 30 ml DAILYPRN PRN PO CONSTIPATION 05/25/20 17:45 Olanzapine (ZyPREXA ZYDIS) 10 mg BID PO 05/30/20 09:00 06/02/20 11:31 DC 06/01/20 11:46 Olanzapine (ZyPREXA ZYDIS) 10 mg Q4HP PRN PO ANXIETY/AGITATION 05/25/20 17:45 05/28/20 12:29 Olanzapine (ZyPREXA ZYDIS) 15 mg BID PO 06/02/20 21:00 06/02/20 12:08 DC Pneumococcal Polyvalent Vaccine (Prevnar 13) 0.5 ml ASDIRECTED IM 06/01/20 11:30 Trazodone HCl (Desyrel) 50 mg QHSP PRN PO INSOMNIA 05/25/20 17:45 05/27/20 22:39 Allergies Coded Allergies: No Known Allergies (Verified , 10/30/03) OLY WU DO Jun 07, 2020 09:27
[2020-06-08 07:10] VITALS: BP 138/92
[2020-06-08] MEDS: DIVALPROEX 500MG *ER* TAB PO SCH ×2 (08:49→20:15)
[2020-06-08] MEDS: CARIPRAZINE 1.5MG CAPSULE (VRAYLAR) PO SCH (08:49)
--- NOTE | 2020-06-08 09:59 | MHIPNPDOC ---
[facility] Progress Note Progress Note DATE OF SERVICE: 06/08/20 Subjective HPI: Patient is met with today with the land planner, where our discussion is undertaken about the potential for treatment over objection, as well as, attempting to negotiate with the patient to continue to take her medications. Patient is first suspicious, but consents stating that shell take the Olanzapine, medication will be changed. Objective Appearance: Appears to be stated age. Well groomed. Well nourished. Affect: Labile as she curses at us when we leave. Speech: Normal volume. Spontaneous and Fluid. Normal rate. Thought Form: Linear, although not entirely logical. Judgement: Poor. Insight: Poor. Assessment F20.9 Schizophrenia, unspecified Plan Start Zyprexa 10 mg BID to see if patient starts taking it. Will continue with treatment over objection, as she said this multiple times, only to refuse the medicine when it is offered. Vital Signs Vital Signs Date Time Temp Pulse Resp B/P (MAP) Pulse Ox O2 Delivery O2 Flow Rate FiO2 06/08/20 07:10 98.6 68 20 138/92 (107) 96 Room Air Current Medications Current Medications Medications (Trade) Dose Ordered Sig/Holly Route PRN Reason Start Time Stop Time Status Last Admin Dose Admin Acetaminophen (Tylenol Tab) 650 mg Q6HP PRN PO HEADACHE or DISCOMFORT 05/25/20 17:45 05/27/20 22:40 Al Hydrox/Mg Hydrox/Simethicone (Mylanta) 30 ml Q4HP PRN PO HEARTBURN/INDIGESTION 05/25/20 17:45 Benztropine Mesylate (Cogentin) 0.5 mg DAILY PRN PO eps 05/30/20 11:15 Cariprazine (Vraylar) 1.5 mg DAILY PO 06/03/20 09:00 Diphenhydramine HCl (Benadryl) 50 mg STAT STAT IM 05/26/20 01:04 05/26/20 01:06 DC 05/26/20 01:22 Diphenhydramine HCl (Benadryl) 50 mg STAT STAT PO 05/26/20 19:38 05/26/20 19:44 DC 05/26/20 19:48 Divalproex Sodium (Depakote Er) 250 mg BID PO 05/30/20 09:00 06/02/20 11:31 DC 06/01/20 11:46 Divalproex Sodium (Depakote Er) 500 mg BID PO 06/02/20 21:00 Haloperidol (Haldol) 10 mg STAT STAT IM 05/26/20 01:04 05/26/20 01:06 DC 05/26/20 01:22 Haloperidol (Haldol) 10 mg STAT STAT IM 05/27/20 01:23 05/27/20 01:25 DC 05/27/20 01:28 Haloperidol (Haldol) 10 mg STAT STAT PO 05/26/20 19:38 05/26/20 19:44 DC 05/26/20 19:48 Home Med (Med Rec Complete!) ASDIRECTED XX 05/25/20 16:15 05/25/20 16:17 DC Influenza Virus Vaccine (Flublok Quad(Egg-Free)18y&Older Influenza) 0.5 ml ASDIRECTED IM 06/01/20 11:30 Lorazepam (Ativan) 2 mg STAT STAT IM 05/26/20 01:04 05/26/20 01:06 DC 05/26/20 01:23 Lorazepam (Ativan) 2 mg STAT STAT PO 05/26/20 19:38 05/26/20 19:44 DC 05/26/20 19:47 Magnesium Hydroxide (Milk Of Magnesia) 30 ml DAILYPRN PRN PO CONSTIPATION 05/25/20 17:45 Olanzapine (ZyPREXA ZYDIS) 10 mg BID PO 05/30/20 09:00 06/02/20 11:31 DC 06/01/20 11:46 Olanzapine (ZyPREXA ZYDIS) 10 mg Q4HP PRN PO ANXIETY/AGITATION 05/25/20 17:45 05/28/20 12:29 Olanzapine (ZyPREXA ZYDIS) 15 mg BID PO 06/02/20 21:00 06/02/20 12:08 DC Pneumococcal Polyvalent Vaccine (Prevnar 13) 0.5 ml ASDIRECTED IM 06/01/20 11:30 Trazodone HCl (Desyrel) 50 mg QHSP PRN PO INSOMNIA 05/25/20 17:45 05/27/20 22:39 Allergies Coded Allergies: No Known Allergies (Verified , 10/30/03) OLY WU DO Jun 08, 2020 09:59
[2020-06-08] MEDS: OLANZapine ORAL DISINTEGRATING TAB 5MG PO SCH ×2 (20:15→22:39)
[2020-06-09] MEDS: ACETAMINOPHEN TAB 650MG DOSE (2X325MG) PO PRN (00:49)
[2020-06-09 06:42] VITALS: BP 133/79
[2020-06-09] MEDS: OLANZapine ORAL DISINTEGRATING TAB 5MG PO SCH ×2 (09:00→21:00)
[2020-06-09] MEDS: DIVALPROEX 500MG *ER* TAB PO SCH ×2 (09:00→21:00)
--- NOTE | 2020-06-09 10:33 | MHIPNPDOC ---
[facility] Progress Note Progress Note DATE OF SERVICE: 06/09/20 Subjective HPI: The patient is met with today, she reports that she wants to go, she could do to be psychotic and distorted, yelling and screaming incoherently. She generally meets for short time but becomes quite labile and screams at this provider when asked about taking medications and told that she would not be able to leave today. Objective General: poor Speech: rapid Thought processes: tangential Thought content: psychotic delusions Abstract reasoning, and computation: impaired Description of associations: imparied Description of abnormal or psychotic thoughts:Unclear, appears to have psychotic processes going on. Judgment: poor Insight: poor Orientation: Alert and orientated 3 Recent and remote memory: Intact Attention span and concentration: impaired secondary to thought process Fund of knowledge: unable to determine Mood: "I want to go" Affect: flat, little reactivity Assessment schizophrenia Plan Will continue with treatment over objection, has been very noncompliant with medications continually screaming and aggressive Vital Signs Vital Signs Date Time Temp Pulse Resp B/P (MAP) Pulse Ox O2 Delivery O2 Flow Rate FiO2 06/09/20 06:42 97.8 80 16 133/79 (97) Room Air 06/08/20 07:10 96 Current Medications Current Medications Medications (Trade) Dose Ordered Sig/Holly Route PRN Reason Start Time Stop Time Status Last Admin Dose Admin Acetaminophen (Tylenol Tab) 650 mg Q6HP PRN PO HEADACHE or DISCOMFORT 05/25/20 17:45 06/09/20 00:49 Al Hydrox/Mg Hydrox/Simethicone (Mylanta) 30 ml Q4HP PRN PO HEARTBURN/INDIGESTION 05/25/20 17:45 Benztropine Mesylate (Cogentin) 0.5 mg DAILY PRN PO eps 05/30/20 11:15 Cariprazine (Vraylar) 1.5 mg DAILY PO 06/03/20 09:00 06/08/20 11:54 DC Diphenhydramine HCl (Benadryl) 50 mg STAT STAT IM 05/26/20 01:04 05/26/20 01:06 DC 05/26/20 01:22 Diphenhydramine HCl (Benadryl) 50 mg STAT STAT PO 05/26/20 19:38 05/26/20 19:44 DC 05/26/20 19:48 Divalproex Sodium (Depakote Er) 250 mg BID PO 05/30/20 09:00 06/02/20 11:31 DC 06/01/20 11:46 Divalproex Sodium (Depakote Er) 500 mg BID PO 06/02/20 21:00 Haloperidol (Haldol) 10 mg STAT STAT IM 05/26/20 01:04 05/26/20 01:06 DC 05/26/20 01:22 Haloperidol (Haldol) 10 mg STAT STAT IM 05/27/20 01:23 05/27/20 01:25 DC 05/27/20 01:28 Haloperidol (Haldol) 10 mg STAT STAT PO 05/26/20 19:38 05/26/20 19:44 DC 05/26/20 19:48 Home Med (Med Rec Complete!) ASDIRECTED XX 05/25/20 16:15 05/25/20 16:17 DC Influenza Virus Vaccine (Flublok Quad(Egg-Free)18y&Older Influenza) 0.5 ml ASDIRECTED IM 06/01/20 11:30 Lorazepam (Ativan) 2 mg STAT STAT IM 05/26/20 01:04 05/26/20 01:06 DC 05/26/20 01:23 Lorazepam (Ativan) 2 mg STAT STAT PO 05/26/20 19:38 05/26/20 19:44 DC 05/26/20 19:47 Magnesium Hydroxide (Milk Of Magnesia) 30 ml DAILYPRN PRN PO CONSTIPATION 05/25/20 17:45 Olanzapine (ZyPREXA ZYDIS) 10 mg BID PO 05/30/20 09:00 06/02/20 11:31 DC 06/01/20 11:46 Olanzapine (ZyPREXA ZYDIS) 10 mg BID PO 06/08/20 21:00 06/08/20 22:39 Olanzapine (ZyPREXA ZYDIS) 10 mg Q4HP PRN PO ANXIETY/AGITATION 05/25/20 17:45 05/28/20 12:29 Olanzapine (ZyPREXA ZYDIS) 15 mg BID PO 06/02/20 21:00 06/02/20 12:08 DC Pneumococcal Polyvalent Vaccine (Prevnar 13) 0.5 ml ASDIRECTED IM 06/01/20 11:30 Trazodone HCl (Desyrel) 50 mg QHSP PRN PO INSOMNIA 05/25/20 17:45 05/27/20 22:39 Allergies Coded Allergies: No Known Allergies (Verified , 10/30/03) OLY WU DO Jun 09, 2020 10:33
[2020-06-09 18:39] VITALS: BP 135/86
[2020-06-10 06:51] VITALS: BP 139/72
[2020-06-10] MEDS: DIVALPROEX 500MG *ER* TAB PO SCH ×2 (09:00→19:10)
[2020-06-10] MEDS: OLANZapine ORAL DISINTEGRATING TAB 5MG PO SCH ×3 (09:00→19:11)
--- NOTE | 2020-06-10 10:25 | MHIPNPDOC ---
[facility] Progress Note Progress Note DATE OF SERVICE: 06/10/20 Subjective HPI: The patient is met with today, she had been screaming at unseen others will eating lunch, asked patient about her medications and she states that she still wants to go but is quite bizarre stating that she needs "natural medicines". She remains quite agitated in the morning screaming and yelling at unseen others disturbing other patients with her severely distorted statements. Objective General: poor Speech: rapid Thought processes: tangential Thought content: psychotic delusions Abstract reasoning, and computation: impaired Description of associations: imparied Description of abnormal or psychotic thoughts:Unclear, appears to have psychotic processes going on. Judgment: poor Insight: poor Orientation: Alert and orientated 3 Recent and remote memory: Intact Attention span and concentration: impaired secondary to thought process Fund of knowledge: unable to determine Mood: "good" Affect: flat, little reactivity Assessment schizoaffective disorder, unspecified Plan , Will continue to offer Zyprexa and Depakote as she is had before, however she doesn't take them consistently and only takes them from time to time, which will likely lead to her not improving at all, will continue with treatment of her objection proceedings unless patient consistently takes her medications, reemphasize with patient the need to take her medications in order to try to work together towards a discharge if it's possible. However, she will likely go long-term as she is quite decompensated Vital Signs Vital Signs Date Time Temp Pulse Resp B/P (MAP) Pulse Ox O2 Delivery O2 Flow Rate FiO2 06/10/20 06:51 98.3 77 16 139/72 (94) Room Air 06/08/20 07:10 96 Current Medications Current Medications Medications (Trade) Dose Ordered Sig/Holly Route PRN Reason Start Time Stop Time Status Last Admin Dose Admin Acetaminophen (Tylenol Tab) 650 mg Q6HP PRN PO HEADACHE or DISCOMFORT 05/25/20 17:45 06/09/20 00:49 Al Hydrox/Mg Hydrox/Simethicone (Mylanta) 30 ml Q4HP PRN PO HEARTBURN/INDIGESTION 05/25/20 17:45 Benztropine Mesylate (Cogentin) 0.5 mg DAILY PRN PO eps 05/30/20 11:15 Cariprazine (Vraylar) 1.5 mg DAILY PO 06/03/20 09:00 06/08/20 11:54 DC Diphenhydramine HCl (Benadryl) 50 mg STAT STAT IM 05/26/20 01:04 05/26/20 01:06 DC 05/26/20 01:22 Diphenhydramine HCl (Benadryl) 50 mg STAT STAT PO 05/26/20 19:38 05/26/20 19:44 DC 05/26/20 19:48 Divalproex Sodium (Depakote Er) 250 mg BID PO 05/30/20 09:00 06/02/20 11:31 DC 06/01/20 11:46 Divalproex Sodium (Depakote Er) 500 mg BID PO 06/02/20 21:00 Haloperidol (Haldol) 10 mg STAT STAT IM 05/26/20 01:04 05/26/20 01:06 DC 05/26/20 01:22 Haloperidol (Haldol) 10 mg STAT STAT IM 05/27/20 01:23 05/27/20 01:25 DC 05/27/20 01:28 Haloperidol (Haldol) 10 mg STAT STAT PO 05/26/20 19:38 05/26/20 19:44 DC 05/26/20 19:48 Home Med (Med Rec Complete!) ASDIRECTED XX 05/25/20 16:15 05/25/20 16:17 DC Influenza Virus Vaccine (Flublok Quad(Egg-Free)18y&Older Influenza) 0.5 ml ASDIRECTED IM 06/01/20 11:30 Lorazepam (Ativan) 2 mg STAT STAT IM 05/26/20 01:04 05/26/20 01:06 DC 05/26/20 01:23 Lorazepam (Ativan) 2 mg STAT STAT PO 05/26/20 19:38 05/26/20 19:44 DC 05/26/20 19:47 Magnesium Hydroxide (Milk Of Magnesia) 30 ml DAILYPRN PRN PO CONSTIPATION 05/25/20 17:45 Olanzapine (ZyPREXA ZYDIS) 10 mg BID PO 05/30/20 09:00 06/02/20 11:31 DC 06/01/20 11:46 Olanzapine (ZyPREXA ZYDIS) 10 mg BID PO 06/08/20 21:00 06/08/20 22:39 Olanzapine (ZyPREXA ZYDIS) 10 mg Q4HP PRN PO ANXIETY/AGITATION 05/25/20 17:45 05/28/20 12:29 Olanzapine (ZyPREXA ZYDIS) 15 mg BID PO 06/02/20 21:00 06/02/20 12:08 DC Pneumococcal Polyvalent Vaccine (Prevnar 13) 0.5 ml ASDIRECTED IM 06/01/20 11:30 Trazodone HCl (Desyrel) 50 mg QHSP PRN PO INSOMNIA 05/25/20 17:45 05/27/20 22:39 Allergies Coded Allergies: No Known Allergies (Verified , 10/30/03) OLY WU DO Jun 10, 2020 10:25
[2020-06-10] MEDS: OLANZapine ORAL DISINTEGRATING TAB 5MG PO PRN (12:49)
[2020-06-11] MEDS: OLANZapine ORAL DISINTEGRATING TAB 5MG PO SCH ×2 (09:00→21:00)
[2020-06-11] MEDS: DIVALPROEX 500MG *ER* TAB PO SCH ×2 (09:00→21:00)
[2020-06-12] MEDS: DIVALPROEX 500MG *ER* TAB PO SCH ×2 (09:40→21:00)
[2020-06-12] MEDS: OLANZapine ORAL DISINTEGRATING TAB 5MG PO SCH ×2 (09:41→21:00)
[2020-06-12] MEDS: ACETAMINOPHEN TAB 650MG DOSE (2X325MG) PO PRN (09:42)
[2020-06-12 17:54] VITALS: BP 142/63
[2020-06-13] MEDS: DIVALPROEX 500MG *ER* TAB PO SCH ×2 (09:00→21:00)
[2020-06-13] MEDS: OLANZapine ORAL DISINTEGRATING TAB 5MG PO SCH ×2 (09:00→21:00)
--- NOTE | 2020-06-13 10:00 | MHIPNPDOC ---
[facility] Progress Note Progress Note DATE OF SERVICE: 06/13/20 Subjective HPI: Samira presents today for concerns regarding her recent behaviors. She was screaming in her room and unseen by others. After being interrupted, she began talking incoherently about [employer] science. Staff reports that the patient is still angry and screaming loud at the sight of others. MEDICATIONS: Patient has not been taking her medications consistently as it has been declining over the weekend. Objective Appearance: Well nourished. Appears to be stated age. Well groomed. Mood: Pleasant. Labile. Thought Form: Linear at times. Tangential and incoherent. Thought Content: No evidence of suicidal ideation. Responds to unseen others. No thoughts of self harm. No evidence of delusions. No evidence of aggressive or homicidal ideation. Judgement: Poor. Insight: Poor. Assessment F20.9 Schizophrenia, unspecified F31.9 Bipolar disorder, unspecified Plan Continue offering Zyprexa and Depakote Discuss with patient the need to take medications consistently and the need to improve more. Continue treatment over objection proceedings as she is still inconsistent in taking her medications regularly. She has little to no chance of improving at her inconsistent rate. Vital Signs Vital Signs Date Time Temp Pulse Resp B/P (MAP) Pulse Ox O2 Delivery O2 Flow Rate FiO2 06/12/20 17:54 98.1 84 20 142/63 (89) 94 Room Air Current Medications Current Medications Medications (Trade) Dose Ordered Sig/Holly Route PRN Reason Start Time Stop Time Status Last Admin Dose Admin Acetaminophen (Tylenol Tab) 650 mg Q6HP PRN PO HEADACHE or DISCOMFORT 05/25/20 17:45 06/12/20 09:42 Al Hydrox/Mg Hydrox/Simethicone (Mylanta) 30 ml Q4HP PRN PO HEARTBURN/INDIGESTION 05/25/20 17:45 Benztropine Mesylate (Cogentin) 0.5 mg DAILY PRN PO eps 05/30/20 11:15 Cariprazine (Vraylar) 1.5 mg DAILY PO 06/03/20 09:00 06/08/20 11:54 DC Diphenhydramine HCl (Benadryl) 50 mg STAT STAT IM 05/26/20 01:04 05/26/20 01:06 DC 05/26/20 01:22 Diphenhydramine HCl (Benadryl) 50 mg STAT STAT PO 05/26/20 19:38 05/26/20 19:44 DC 05/26/20 19:48 Divalproex Sodium (Depakote Er) 250 mg BID PO 05/30/20 09:00 06/02/20 11:31 DC 06/01/20 11:46 Divalproex Sodium (Depakote Er) 500 mg BID PO 06/02/20 21:00 06/12/20 09:40 Haloperidol (Haldol) 10 mg STAT STAT IM 05/26/20 01:04 05/26/20 01:06 DC 05/26/20 01:22 Haloperidol (Haldol) 10 mg STAT STAT IM 05/27/20 01:23 05/27/20 01:25 DC 05/27/20 01:28 Haloperidol (Haldol) 10 mg STAT STAT PO 05/26/20 19:38 05/26/20 19:44 DC 05/26/20 19:48 Home Med (Med Rec Complete!) ASDIRECTED XX 05/25/20 16:15 05/25/20 16:17 DC Influenza Virus Vaccine (Flublok Quad(Egg-Free)18y&Older Influenza) 0.5 ml ASDIRECTED IM 06/01/20 11:30 Lorazepam (Ativan) 2 mg STAT STAT IM 05/26/20 01:04 05/26/20 01:06 DC 05/26/20 01:23 Lorazepam (Ativan) 2 mg STAT STAT PO 05/26/20 19:38 05/26/20 19:44 DC 05/26/20 19:47 Magnesium Hydroxide (Milk Of Magnesia) 30 ml DAILYPRN PRN PO CONSTIPATION 05/25/20 17:45 Olanzapine (ZyPREXA ZYDIS) 10 mg BID PO 05/30/20 09:00 06/02/20 11:31 DC 06/01/20 11:46 Olanzapine (ZyPREXA ZYDIS) 10 mg BID PO 06/08/20 21:00 06/12/20 09:41 Olanzapine (ZyPREXA ZYDIS) 10 mg Q4HP PRN PO ANXIETY/AGITATION 05/25/20 17:45 06/10/20 12:49 Olanzapine (ZyPREXA ZYDIS) 15 mg BID PO 06/02/20 21:00 06/02/20 12:08 DC Pneumococcal Polyvalent Vaccine (Prevnar 13) 0.5 ml ASDIRECTED IM 06/01/20 11:30 Trazodone HCl (Desyrel) 50 mg QHSP PRN PO INSOMNIA 05/25/20 17:45 05/27/20 22:39 Allergies Coded Allergies: No Known Allergies (Verified , 10/30/03) OLY WU DO Jun 13, 2020 10:00
--- NOTE | 2020-06-13 12:33 | MHIPN ---
DATE: 06/09/2020 SUBJECTIVE: I have been asked to see this patient for an evaluation regarding Court Treatment Over Objection, which has been proposed by Dr. Arnett, her treating psychiatrist. When I went to see her, and explained the reasons for my seeing her, she indicated that she felt quite okay, and that she had been taking her medicines, which is not entirely accurate, and then when we proceeded further, she became quite irritable, quite quickly, had a loud voice, display of anger, and indicated that she was going to [place], and that I was not her doctor, and that she did not want to be seen by representatives from [employer]. Given the agitation, lability of mood, the interview was cut short. We spoke with the farm loan representative from [employer], and informed her of the situation. The patient had declined being seen for interview on a day of preference. Therefore, regarding the proposal for the evaluation, its support, is to follow. TRAVIS
[2020-06-13] MEDS ORDERED: DIVALPROEX 500MG *ER* TAB PO ONE (16:00)
[2020-06-13] MEDS ORDERED: OLANZapine ORAL DISINTEGRATING TAB 5MG PO ONE (16:00)
[2020-06-13 16:11] VITALS: BP 127/86
[2020-06-14] MEDS: DIVALPROEX 500MG *ER* TAB PO SCH ×2 (09:00→21:00)
[2020-06-14] MEDS: OLANZapine ORAL DISINTEGRATING TAB 5MG PO SCH ×2 (09:00→21:00)
--- NOTE | 2020-06-14 10:21 | MHIPNPDOC ---
[facility] [place] Progress Note DATE OF SERVICE: 06/14/20 HPI: Keysha presents today for concerns regarding his schizoaffective disorder. Patient met with today. She reports that she doesn't want the [employer] ience to be given to her. It's unclear as to what she's referring to. She then leads this provider to a window showing computer machinery behind one of the doors and the patient sits there obsessing about wires and that they are hooked up to her. She's quite confused and bizarre during this interview and little is able to be gleaned. Objective Appearance: Poor hygiene. Speech: Normal rate. Normal volume. Spontaneous and Fluid. Cognition: Impaired. Secondary to thought process. Thought Form: Non-linear. Paranoid and intrusive. Tangential. Thought Content: Denies suicidal and homocidal ideation, but appears to respond to internal stimuli yelling at Unseen others, obssessing about wires in another room. Judgement: Poor. Insight: Poor. Assessment F25.9 Schizoaffective disorder, unspecified Plan Continue offering medications, but she is not consistent.Will continue with TOO Vital Signs Vital Signs Date Time Temp Pulse Resp B/P (MAP) Pulse Ox O2 Delivery O2 Flow Rate FiO2 06/13/20 16:11 98.1 94 20 127/86 (100) 06/12/20 17:54 94 Room Air Current Medications Current Medications Medications (Trade) Dose Ordered Sig/Holly Route PRN Reason Start Time Stop Time Status Last Admin Dose Admin Acetaminophen (Tylenol Tab) 650 mg Q6HP PRN PO HEADACHE or DISCOMFORT 05/25/20 17:45 06/12/20 09:42 Al Hydrox/Mg Hydrox/Simethicone (Mylanta) 30 ml Q4HP PRN PO HEARTBURN/INDIGESTION 05/25/20 17:45 Benztropine Mesylate (Cogentin) 0.5 mg DAILY PRN PO eps 05/30/20 11:15 Cariprazine (Vraylar) 1.5 mg DAILY PO 06/03/20 09:00 06/08/20 11:54 DC Diphenhydramine HCl (Benadryl) 50 mg STAT STAT IM 05/26/20 01:04 05/26/20 01:06 DC 05/26/20 01:22 Diphenhydramine HCl (Benadryl) 50 mg STAT STAT PO 05/26/20 19:38 05/26/20 19:44 DC 05/26/20 19:48 Divalproex Sodium (Depakote Er) 250 mg BID PO 05/30/20 09:00 06/02/20 11:31 DC 06/01/20 11:46 Divalproex Sodium (Depakote Er) 500 mg BID PO 06/02/20 21:00 06/12/20 09:40 Haloperidol (Haldol) 10 mg STAT STAT IM 05/26/20 01:04 05/26/20 01:06 DC 05/26/20 01:22 Haloperidol (Haldol) 10 mg STAT STAT IM 05/27/20 01:23 05/27/20 01:25 DC 05/27/20 01:28 Haloperidol (Haldol) 10 mg STAT STAT PO 05/26/20 19:38 05/26/20 19:44 DC 05/26/20 19:48 Home Med (Med Rec Complete!) ASDIRECTED XX 05/25/20 16:15 05/25/20 16:17 DC Influenza Virus Vaccine (Flublok Quad(Egg-Free)18y&Older Influenza) 0.5 ml ASDIRECTED IM 06/01/20 11:30 Lorazepam (Ativan) 2 mg STAT STAT IM 05/26/20 01:04 05/26/20 01:06 DC 05/26/20 01:23 Lorazepam (Ativan) 2 mg STAT STAT PO 05/26/20 19:38 05/26/20 19:44 DC 05/26/20 19:47 Magnesium Hydroxide (Milk Of Magnesia) 30 ml DAILYPRN PRN PO CONSTIPATION 05/25/20 17:45 Olanzapine (ZyPREXA ZYDIS) 10 mg BID PO 05/30/20 09:00 06/02/20 11:31 DC 06/01/20 11:46 Olanzapine (ZyPREXA ZYDIS) 10 mg BID PO 06/08/20 21:00 06/12/20 09:41 Olanzapine (ZyPREXA ZYDIS) 10 mg Q4HP PRN PO ANXIETY/AGITATION 05/25/20 17:45 06/10/20 12:49 Olanzapine (ZyPREXA ZYDIS) 15 mg BID PO 06/02/20 21:00 06/02/20 12:08 DC Pneumococcal Polyvalent Vaccine (Prevnar 13) 0.5 ml ASDIRECTED IM 06/01/20 11:30 Trazodone HCl (Desyrel) 50 mg QHSP PRN PO INSOMNIA 05/25/20 17:45 05/27/20 22:39 Allergies Coded Allergies: No Known Allergies (Verified , 10/30/03) OLY WU DO Jun 14, 2020 10:21
[2020-06-14 16:17] VITALS: BP 129/83
--- NOTE | 2020-06-14 17:02 | TOB ---
DATE: 06/09/2020 DATE OF ADMISSION: 05/25/2020 This is an assessment report regarding proposed treatment for her objection T treatment, objection. SUBJECTIVE: The patient was seen by me on June 09, 2020. This is evaluation in support of an application made by her treating psychiatrist, Dr. Blu Arnett, for treating the patient over her objection. FAMILY CONTACT: Contact to the family is only available from the patient's AOT coordinator. SECTION 1: Clinical summary: She is 69 years old, has a long history of psychosis, schizophrenia versus schizoaffective disorder, has been decompensating for several weeks, has had several hospitalizations including one quite recently, was discharged and soon afterwards, was admitted on May 25, 2020. When not doing well, is deluded, has delusions of persecution is easily agitated, has mood fluctuations, possibly auditory hallucinations and her functioning in terms of judgment and insight deteriorate quite considerably. She has been un-adherent to recommendations made including treatment and quite often declines taking her medications, stating either that she does not need it or that she is being poisoned. DIGANOSIS: Schizoaffective disorder. SECTION 2: Proposed treatment. 1. Course of treatment recommended by the treating physician: This is to prescribe an antipsychotic as follows: ORAL MEDICATIONS: Abilify 5 mg, 30 mg daily in divided doses or Zyprexa 5 mg, 30 mg in divided doses or paliperidone 3 mg, 12 mg in divided doses or risperidone 1 to 6 mg in daily divided doses or Vraylar 1.5 mg, 6 mg daily or Seroquel 25 mg to 900 mg daily in divided doses Any combination which is deemed effective is also proposed if one individual medicine does not provide sufficient reduction of her symptoms. Intramuscular treatment to be used if oral treatment is refused. Haldol 2 mg, 30 mg daily in divided doses or Thorazine 25 mg, 900 mg in divided doses or Zyprexa 5 mg, 30 mg in divided or Prolixin 5 mg, 30 mg daily in divided doses. Any combination which is deemed effective is to be used if any one individual medicine does not provide sufficient reduction of symptoms. Long acting to be used if oral medicine is tolerated and effective. Abilify long acting 300 mg to 400 mg monthly or paliperidone long acting 156 mg, 264 mg intramuscular monthly or Haldol long acting 20 mg to 100 mg monthly or Any combination deemed effective in combination with oral long acting medicines to reduce symptoms if one is deemed not enough alone. MEDICAL PROCEDURES AND OTHER CONCERNS: Forcible restraint to perform electrocardiogram monitoring, blood monitoring to ensure that the patient is not placed in excessive risk of danger even if refused. Cogentin 0.5 mg up to a total of 4 mg a day in divided doses intramuscular if Parkinsonian symptoms are evident. 1. Electric convulsive treatment to be used only in the condition that all medication options have failed to control symptoms. The patient would need to go to the closest local facility for electric convulsant treatment, such as [facility] in [place] or other suitable locations nearby in [facility]. 2. Reasonable alternatives if any as above. The patient has tried on the proposed treatment at one time or other she has been tried on these treatments with the exception of electric convulsive therapy. 4. Anticipate benefits to proposed treatment. Control of her aggression, severe disorganization and improvement in her thought processes, reduction of delusions, which tend to interfere with her functioning quite considerably. If there is an improvement in that, this would increase her chances of a better quality of life and to live relatively independently in the community and decrease the chances of re-hospitalization. 5. Reasonably foreseeable adverse effect. Parkinsonian symptoms, weight gain, sedation, these are among the side effects of medicines like the antipsychotics. In rare instances, neuroleptic malignant syndrome or tardive dyskinesia may develop. At this point, however, it is thought that the benefits outweigh the risks. PROGNOSIS WITHOUT TREATMENT: Without treatment, the patient's prognosis is poor given the long history of primary psychosis, in terms of schizoaffective disorder, and mood fluctuations, which interferes with her judgment and insight. Her adherence to treatment recommendations is considerably compromised and that would most likely lead to further deterioration in her clinical condition, to the point where she may not be able to cater for herself independently and may potentially be a danger to others and herself including inadvertently. SECTION 3: THE PATIENT'S CAPACITY. 1. Explained to the patient: a. Condition yes b. Proposed treatment c. Anticipated benefits of treatments: Yes. d. Risk of adverse effects of treatment: No I to explain the above, including the reasons for treatment; but as the attempt proceeded, the patient became quite angry, agitated, verbally aggressive, and to calm the patient it was cut immediately short. 2. State the nature of the patients objection for treatment. She does not believe that she requires medicines, in fact, says has been taking them, when she has not and that they help her, but gets quite agitated and unable to give a [place] explanation. 3.The patient's capacity. The patient's is severely limited given the patients psychosis, the delusions of persecution, mood fluctuations, poor judgment and these interfere quite considerably with her ability to make safe judgments. SECTION 4: Likelihood for dangerous behavior. 1. The patient is believed to dangerous to others at the hospital are not treated. 2. Yes, she has been agitated to the point where she has required frequent direction and monitoring. 3. If the patient is to believe to be likely dangerous to self, if not treated. 4. Yes, I believe that if she is not treated given the nature of her illness, the psychosis, the delusions, subsequent behaviors and recent intensity of symptoms, her ability to function diminishes quite considerably and this may place her in a position where she may be a danger to herself including inadvertently. SECTION 5: Other information: The patient has a long history of psychosis, schizoaffective disorder most likely and recent hospitalizations, difficulties, her inability to function currently in the community, all point to the importance of the need for treatment. TRAVIS
[2020-06-15] MEDS: DIVALPROEX 500MG *ER* TAB PO SCH ×2 (09:00→19:22)
[2020-06-15] MEDS: OLANZapine ORAL DISINTEGRATING TAB 5MG PO SCH ×2 (09:00→19:22)
--- NOTE | 2020-06-15 09:12 | MHIPNPDOC ---
[facility] Progress Note Progress Note DATE OF SERVICE: 06/15/20 Subjective HPI: Attempted to meet with patient. However, she is so distorted that she is unable to describe any information. She continues to be bizarre, refusing her medication screaming incoherently. Objective Appearance: Fair. Behavior: Disorganized. Cognition: Impaired. Secondary to thought process. Thought Form: Tangential. Nonlinear. Thought Content: Denies suicidal ideation. Responds to unseen others. Screams at various people that she calls them her little baggy. Judgement: Poor. Insight: Poor. Assessment F25.9 Schizoaffective disorder, unspecified Plan Continue treatment over objection proceedings Taking medication highly inconsistently. Vital Signs Vital Signs Date Time Temp Pulse Resp B/P (MAP) Pulse Ox O2 Delivery O2 Flow Rate FiO2 06/14/20 16:17 98.3 94 18 129/83 (98) 06/12/20 17:54 94 Room Air Current Medications Current Medications Medications (Trade) Dose Ordered Sig/Holly Route PRN Reason Start Time Stop Time Status Last Admin Dose Admin Acetaminophen (Tylenol Tab) 650 mg Q6HP PRN PO HEADACHE or DISCOMFORT 05/25/20 17:45 06/12/20 09:42 Al Hydrox/Mg Hydrox/Simethicone (Mylanta) 30 ml Q4HP PRN PO HEARTBURN/INDIGESTION 05/25/20 17:45 Benztropine Mesylate (Cogentin) 0.5 mg DAILY PRN PO eps 05/30/20 11:15 Cariprazine (Vraylar) 1.5 mg DAILY PO 06/03/20 09:00 06/08/20 11:54 DC Diphenhydramine HCl (Benadryl) 50 mg STAT STAT IM 05/26/20 01:04 05/26/20 01:06 DC 05/26/20 01:22 Diphenhydramine HCl (Benadryl) 50 mg STAT STAT PO 05/26/20 19:38 05/26/20 19:44 DC 05/26/20 19:48 Divalproex Sodium (Depakote Er) 250 mg BID PO 05/30/20 09:00 06/02/20 11:31 DC 06/01/20 11:46 Divalproex Sodium (Depakote Er) 500 mg BID PO 06/02/20 21:00 06/12/20 09:40 Haloperidol (Haldol) 10 mg STAT STAT IM 05/26/20 01:04 05/26/20 01:06 DC 05/26/20 01:22 Haloperidol (Haldol) 10 mg STAT STAT IM 05/27/20 01:23 05/27/20 01:25 DC 05/27/20 01:28 Haloperidol (Haldol) 10 mg STAT STAT PO 05/26/20 19:38 05/26/20 19:44 DC 05/26/20 19:48 Home Med (Med Rec Complete!) ASDIRECTED XX 05/25/20 16:15 05/25/20 16:17 DC Influenza Virus Vaccine (Flublok Quad(Egg-Free)18y&Older Influenza) 0.5 ml ASDIRECTED IM 06/01/20 11:30 Lorazepam (Ativan) 2 mg STAT STAT IM 05/26/20 01:04 05/26/20 01:06 DC 05/26/20 01:23 Lorazepam (Ativan) 2 mg STAT STAT PO 05/26/20 19:38 05/26/20 19:44 DC 05/26/20 19:47 Magnesium Hydroxide (Milk Of Magnesia) 30 ml DAILYPRN PRN PO CONSTIPATION 05/25/20 17:45 Olanzapine (ZyPREXA ZYDIS) 10 mg BID PO 05/30/20 09:00 06/02/20 11:31 DC 06/01/20 11:46 Olanzapine (ZyPREXA ZYDIS) 10 mg BID PO 06/08/20 21:00 06/12/20 09:41 Olanzapine (ZyPREXA ZYDIS) 10 mg Q4HP PRN PO ANXIETY/AGITATION 05/25/20 17:45 06/10/20 12:49 Olanzapine (ZyPREXA ZYDIS) 15 mg BID PO 06/02/20 21:00 06/02/20 12:08 DC Pneumococcal Polyvalent Vaccine (Prevnar 13) 0.5 ml ASDIRECTED IM 06/01/20 11:30 Trazodone HCl (Desyrel) 50 mg QHSP PRN PO INSOMNIA 05/25/20 17:45 05/27/20 22:39 Allergies Coded Allergies: No Known Allergies (Verified , 10/30/03) OLY WU DO Jun 15, 2020 09:12
[2020-06-15 16:08] VITALS: BP 133/88
[2020-06-15 16:11] VITALS: BP 133/88
[2020-06-16] MEDS: DIVALPROEX 500MG *ER* TAB PO SCH ×2 (09:00→21:00)
[2020-06-16] MEDS: OLANZapine ORAL DISINTEGRATING TAB 5MG PO SCH ×2 (09:00→21:00)
--- NOTE | 2020-06-16 10:46 | MHIPNPDOC ---
[facility] Progress Note Progress Note DATE OF SERVICE: 06/16/20 Subjective HPI: Samira presents today for a follow-up. Patient states that she believes she committed a murder. She states that someone in the unit convinced her she committed a murder. Patient is screaming loudly. Objective Appearance: Poor hygiene. Behavior: Disorganized. delusional. paranoid. Affect: Incoherent. Cognition: Impaired. Secondary to thought process. Thought Form: Tangential. Nonlinear. Thought Content: Reports various paranoid ideations. Responding to internal stimuli. Judgement: Poor. Insight: Poor. Assessment F20.9 Schizophrenia, unspecified Plan Continue the treatment over Objection. Patient is fairly delusional and unable to reason. Vital Signs Vital Signs Date Time Temp Pulse Resp B/P (MAP) Pulse Ox O2 Delivery O2 Flow Rate FiO2 06/15/20 16:11 97.1 98 20 133/88 (103) 06/12/20 17:54 94 Room Air Current Medications Current Medications Medications (Trade) Dose Ordered Sig/Holly Route PRN Reason Start Time Stop Time Status Last Admin Dose Admin Acetaminophen (Tylenol Tab) 650 mg Q6HP PRN PO HEADACHE or DISCOMFORT 05/25/20 17:45 06/12/20 09:42 Al Hydrox/Mg Hydrox/Simethicone (Mylanta) 30 ml Q4HP PRN PO HEARTBURN/INDIGESTION 05/25/20 17:45 Benztropine Mesylate (Cogentin) 0.5 mg DAILY PRN PO eps 05/30/20 11:15 Cariprazine (Vraylar) 1.5 mg DAILY PO 06/03/20 09:00 06/08/20 11:54 DC Diphenhydramine HCl (Benadryl) 50 mg STAT STAT IM 05/26/20 01:04 05/26/20 01:06 DC 05/26/20 01:22 Diphenhydramine HCl (Benadryl) 50 mg STAT STAT PO 05/26/20 19:38 05/26/20 19:44 DC 05/26/20 19:48 Divalproex Sodium (Depakote Er) 250 mg BID PO 05/30/20 09:00 06/02/20 11:31 DC 06/01/20 11:46 Divalproex Sodium (Depakote Er) 500 mg BID PO 06/02/20 21:00 06/15/20 19:22 Haloperidol (Haldol) 10 mg STAT STAT IM 05/26/20 01:04 05/26/20 01:06 DC 05/26/20 01:22 Haloperidol (Haldol) 10 mg STAT STAT IM 05/27/20 01:23 05/27/20 01:25 DC 05/27/20 01:28 Haloperidol (Haldol) 10 mg STAT STAT PO 05/26/20 19:38 05/26/20 19:44 DC 05/26/20 19:48 Home Med (Med Rec Complete!) ASDIRECTED XX 05/25/20 16:15 05/25/20 16:17 DC Influenza Virus Vaccine (Flublok Quad(Egg-Free)18y&Older Influenza) 0.5 ml ASDIRECTED IM 06/01/20 11:30 Lorazepam (Ativan) 2 mg STAT STAT IM 05/26/20 01:04 05/26/20 01:06 DC 05/26/20 01:23 Lorazepam (Ativan) 2 mg STAT STAT PO 05/26/20 19:38 05/26/20 19:44 DC 05/26/20 19:47 Magnesium Hydroxide (Milk Of Magnesia) 30 ml DAILYPRN PRN PO CONSTIPATION 05/25/20 17:45 Olanzapine (ZyPREXA ZYDIS) 10 mg BID PO 05/30/20 09:00 06/02/20 11:31 DC 06/01/20 11:46 Olanzapine (ZyPREXA ZYDIS) 10 mg BID PO 06/08/20 21:00 06/15/20 19:22 Olanzapine (ZyPREXA ZYDIS) 10 mg Q4HP PRN PO ANXIETY/AGITATION 05/25/20 17:45 06/10/20 12:49 Olanzapine (ZyPREXA ZYDIS) 15 mg BID PO 06/02/20 21:00 06/02/20 12:08 DC Pneumococcal Polyvalent Vaccine (Prevnar 13) 0.5 ml ASDIRECTED IM 06/01/20 11:30 Trazodone HCl (Desyrel) 50 mg QHSP PRN PO INSOMNIA 05/25/20 17:45 9/11/20 22:39 Allergies Coded Allergies: No Known Allergies (Verified , 10/30/03) OLY WU DO Jun 16, 2020 10:46
[2020-06-17] MEDS: OLANZapine ORAL DISINTEGRATING TAB 5MG PO SCH ×2 (09:00→21:00)
[2020-06-17] MEDS: DIVALPROEX 500MG *ER* TAB PO SCH ×2 (09:00→21:00)
--- NOTE | 2020-06-17 10:59 | MHIPNPDOC ---
[facility] Progress Note Progress Note DATE OF SERVICE: 06/17/20 Subjective HPI: Samira presents today for a brief meeting. She is so incoherent that little can be gleaned from the discussion. Patient has been screaming at unseen others yelling, label it, and crying in a labile manner. She is unable to describe what is causing her to do this and is increasingly distorted. Objective Appearance: Poor. Affect: Crying. Yelling. Speech: Rapid. Pressured laban. Cognition: Impaired secondary to thought process. Thought Form: Incoherent. Tangential. Judgement: Poor. Insight: Poor. Assessment F20.9 Schizophrenia, unspecified Plan Treatment over objection proceedings for next court date on Saturday. Vital Signs Vital Signs Date Time Temp Pulse Resp B/P (MAP) Pulse Ox O2 Delivery O2 Flow Rate FiO2 06/15/20 16:11 97.1 98 20 133/88 (103) 06/12/20 17:54 94 Room Air Current Medications Current Medications Medications (Trade) Dose Ordered Sig/Holly Route PRN Reason Start Time Stop Time Status Last Admin Dose Admin Acetaminophen (Tylenol Tab) 650 mg Q6HP PRN PO HEADACHE or DISCOMFORT 05/25/20 17:45 06/12/20 09:42 Al Hydrox/Mg Hydrox/Simethicone (Mylanta) 30 ml Q4HP PRN PO HEARTBURN/INDIGESTION 05/25/20 17:45 Benztropine Mesylate (Cogentin) 0.5 mg DAILY PRN PO eps 05/30/20 11:15 Cariprazine (Vraylar) 1.5 mg DAILY PO 06/03/20 09:00 06/08/20 11:54 DC Diphenhydramine HCl (Benadryl) 50 mg STAT STAT IM 05/26/20 01:04 05/26/20 01:06 DC 05/26/20 01:22 Diphenhydramine HCl (Benadryl) 50 mg STAT STAT PO 05/26/20 19:38 05/26/20 19:44 DC 05/26/20 19:48 Divalproex Sodium (Depakote Er) 250 mg BID PO 05/30/20 09:00 06/02/20 11:31 DC 06/01/20 11:46 Divalproex Sodium (Depakote Er) 500 mg BID PO 06/02/20 21:00 06/15/20 19:22 Haloperidol (Haldol) 10 mg STAT STAT IM 05/26/20 01:04 05/26/20 01:06 DC 05/26/20 01:22 Haloperidol (Haldol) 10 mg STAT STAT IM 05/27/20 01:23 05/27/20 01:25 DC 05/27/20 01:28 Haloperidol (Haldol) 10 mg STAT STAT PO 05/26/20 19:38 05/26/20 19:44 DC 05/26/20 19:48 Home Med (Med Rec Complete!) ASDIRECTED XX 05/25/20 16:15 05/25/20 16:17 DC Influenza Virus Vaccine (Flublok Quad(Egg-Free)18y&Older Influenza) 0.5 ml ASDIRECTED IM 06/01/20 11:30 Lorazepam (Ativan) 2 mg STAT STAT IM 05/26/20 01:04 05/26/20 01:06 DC 05/26/20 01:23 Lorazepam (Ativan) 2 mg STAT STAT PO 05/26/20 19:38 05/26/20 19:44 DC 05/26/20 19:47 Magnesium Hydroxide (Milk Of Magnesia) 30 ml DAILYPRN PRN PO CONSTIPATION 05/25/20 17:45 Olanzapine (ZyPREXA ZYDIS) 10 mg BID PO 05/30/20 09:00 06/02/20 11:31 DC 06/01/20 11:46 Olanzapine (ZyPREXA ZYDIS) 10 mg BID PO 06/08/20 21:00 06/15/20 19:22 Olanzapine (ZyPREXA ZYDIS) 10 mg Q4HP PRN PO ANXIETY/AGITATION 05/25/20 17:45 06/10/20 12:49 Olanzapine (ZyPREXA ZYDIS) 15 mg BID PO 06/02/20 21:00 06/02/20 12:08 DC Pneumococcal Polyvalent Vaccine (Prevnar 13) 0.5 ml ASDIRECTED IM 06/01/20 11:30 Trazodone HCl (Desyrel) 50 mg QHSP PRN PO INSOMNIA 05/25/20 17:45 05/27/20 22:39 Allergies Coded Allergies: No Known Allergies (Verified , 10/30/03) OLY WU DO Jun 17, 2020 10:59
[2020-06-17 16:21] VITALS: BP 131/82
[2020-06-18] MEDS: DIVALPROEX 500MG *ER* TAB PO SCH ×2 (09:00→20:47)
[2020-06-18] MEDS: OLANZapine ORAL DISINTEGRATING TAB 5MG PO SCH ×2 (09:00→20:47)
[2020-06-18 16:17] VITALS: BP 140/80
[2020-06-19] MEDS: DIVALPROEX 500MG *ER* TAB PO SCH ×2 (09:00→21:00)
[2020-06-19] MEDS: OLANZapine ORAL DISINTEGRATING TAB 5MG PO SCH ×2 (09:00→21:00)
[2020-06-20] MEDS: DIVALPROEX 500MG *ER* TAB PO SCH ×2 (09:00→21:00)
[2020-06-20] MEDS: OLANZapine ORAL DISINTEGRATING TAB 5MG PO SCH ×2 (09:00→21:00)
[2020-06-21] MEDS: DIVALPROEX 500MG *ER* TAB PO SCH ×2 (09:00→21:00)
[2020-06-21] MEDS: OLANZapine ORAL DISINTEGRATING TAB 5MG PO SCH ×2 (09:00→21:00)
--- NOTE | 2020-06-21 10:48 | MHIPNPDOC ---
[facility] Progress Note Progress Note DATE OF SERVICE: 06/21/20 Subjective HPI: Samira presents today for concerns regarding her evaluation. Patient had to take her medication during the visit. Patient claims [employer]. MEDICATIONS: Current medications include Zyprexa. Objective Thought Form: Tangential. Judgement: Poor. Insight: Poor. Assessment F25.0 Schizoaffective disorder, bipolar type Plan Continue with treatment or injection proceedings. Vital Signs Vital Signs Date Time Temp Pulse Resp B/P (MAP) Pulse Ox O2 Delivery O2 Flow Rate FiO2 06/18/20 16:17 98.3 99 20 140/80 (100) Current Medications Current Medications Medications (Trade) Dose Ordered Sig/Holly Route PRN Reason Start Time Stop Time Status Last Admin Dose Admin Acetaminophen (Tylenol Tab) 650 mg Q6HP PRN PO HEADACHE or DISCOMFORT 05/25/20 17:45 06/12/20 09:42 Al Hydrox/Mg Hydrox/Simethicone (Mylanta) 30 ml Q4HP PRN PO HEARTBURN/INDIGESTION 05/25/20 17:45 Benztropine Mesylate (Cogentin) 0.5 mg DAILY PRN PO eps 05/30/20 11:15 Cariprazine (Vraylar) 1.5 mg DAILY PO 06/03/20 09:00 06/08/20 11:54 DC Diphenhydramine HCl (Benadryl) 50 mg STAT STAT IM 05/26/20 01:04 05/26/20 01:06 DC 05/26/20 01:22 Diphenhydramine HCl (Benadryl) 50 mg STAT STAT PO 05/26/20 19:38 05/26/20 19:44 DC 05/26/20 19:48 Divalproex Sodium (Depakote Er) 250 mg BID PO 05/30/20 09:00 06/02/20 11:31 DC 06/01/20 11:46 Divalproex Sodium (Depakote Er) 500 mg BID PO 06/02/20 21:00 06/15/20 19:22 Haloperidol (Haldol) 10 mg STAT STAT IM 05/26/20 01:04 05/26/20 01:06 DC 05/26/20 01:22 Haloperidol (Haldol) 10 mg STAT STAT IM 05/27/20 01:23 05/27/20 01:25 DC 05/27/20 01:28 Haloperidol (Haldol) 10 mg STAT STAT PO 05/26/20 19:38 05/26/20 19:44 DC 05/26/20 19:48 Home Med (Med Rec Complete!) ASDIRECTED XX 05/25/20 16:15 05/25/20 16:17 DC Influenza Virus Vaccine (Flublok Quad(Egg-Free)18y&Older Influenza) 0.5 ml ASDIRECTED IM 06/01/20 11:30 Lorazepam (Ativan) 2 mg STAT STAT IM 05/26/20 01:04 05/26/20 01:06 DC 05/26/20 01:23 Lorazepam (Ativan) 2 mg STAT STAT PO 05/26/20 19:38 05/26/20 19:44 DC 05/26/20 19:47 Magnesium Hydroxide (Milk Of Magnesia) 30 ml DAILYPRN PRN PO CONSTIPATION 05/25/20 17:45 Olanzapine (ZyPREXA ZYDIS) 10 mg BID PO 05/30/20 09:00 06/02/20 11:31 DC 06/01/20 11:46 Olanzapine (ZyPREXA ZYDIS) 10 mg BID PO 06/08/20 21:00 06/15/20 19:22 Olanzapine (ZyPREXA ZYDIS) 10 mg Q4HP PRN PO ANXIETY/AGITATION 05/25/20 17:45 06/10/20 12:49 Olanzapine (ZyPREXA ZYDIS) 15 mg BID PO 06/02/20 21:00 06/02/20 12:08 DC Pneumococcal Polyvalent Vaccine (Prevnar 13) 0.5 ml ASDIRECTED IM 06/01/20 11:30 Trazodone HCl (Desyrel) 50 mg QHSP PRN PO INSOMNIA 05/25/20 17:45 05/27/20 22:39 Allergies Coded Allergies: No Known Allergies (Verified , 10/30/03) OLY WU DO Jun 21, 2020 10:48
[2020-06-22] MEDS: OLANZapine ORAL DISINTEGRATING TAB 5MG PO SCH ×2 (09:00→21:00)
[2020-06-22] MEDS: DIVALPROEX 500MG *ER* TAB PO SCH ×2 (09:00→21:00)
--- NOTE | 2020-06-22 09:10 | MHIPNPDOC ---
[facility] Progress Note Progress Note DATE OF SERVICE: 06/22/20 Subjective HPI: Samira presents today for concerns regarding her screaming and not taking her medications. She continues to state the words [employer], stated that she did not want to take medications and that the provider should take medications. She continued to be loud and boisterous, but was yelling at unseen others. She continues to say she does not want to take medications and that the kier operator turned her off and that her neighbor is a satanist who has demons. Objective Appearance: Well nourished. Appears to be stated age. Hygiene - Fair. Speech: Loud. Rambling. Cognition: Impaired secondary to thought process. Thought Form: Tangential and Incoherent. Thought Content: Delusional and Paranoid. Judgement: Poor. Insight: Poor. Assessment F25.0 Schizoaffective disorder, bipolar type Plan Continue with TOO Vital Signs Vital Signs Date Time Temp Pulse Resp B/P (MAP) Pulse Ox O2 Delivery O2 Flow Rate FiO2 06/18/20 16:17 98.3 99 20 140/80 (100) Current Medications Current Medications Medications (Trade) Dose Ordered Sig/Holly Route PRN Reason Start Time Stop Time Status Last Admin Dose Admin Acetaminophen (Tylenol Tab) 650 mg Q6HP PRN PO HEADACHE or DISCOMFORT 05/25/20 17:45 06/12/20 09:42 Al Hydrox/Mg Hydrox/Simethicone (Mylanta) 30 ml Q4HP PRN PO HEARTBURN/INDIGESTION 05/25/20 17:45 Benztropine Mesylate (Cogentin) 0.5 mg DAILY PRN PO eps 05/30/20 11:15 Cariprazine (Vraylar) 1.5 mg DAILY PO 06/03/20 09:00 06/08/20 11:54 DC Diphenhydramine HCl (Benadryl) 50 mg STAT STAT IM 05/26/20 01:04 05/26/20 01:06 DC 05/26/20 01:22 Diphenhydramine HCl (Benadryl) 50 mg STAT STAT PO 05/26/20 19:38 05/26/20 19:44 DC 05/26/20 19:48 Divalproex Sodium (Depakote Er) 250 mg BID PO 05/30/20 09:00 06/02/20 11:31 DC 06/01/20 11:46 Divalproex Sodium (Depakote Er) 500 mg BID PO 06/02/20 21:00 06/15/20 19:22 Haloperidol (Haldol) 10 mg STAT STAT IM 05/26/20 01:04 05/26/20 01:06 DC 05/26/20 01:22 Haloperidol (Haldol) 10 mg STAT STAT IM 05/27/20 01:23 05/27/20 01:25 DC 05/27/20 01:28 Haloperidol (Haldol) 10 mg STAT STAT PO 05/26/20 19:38 05/26/20 19:44 DC 05/26/20 19:48 Home Med (Med Rec Complete!) ASDIRECTED XX 05/25/20 16:15 05/25/20 16:17 DC Influenza Virus Vaccine (Flublok Quad(Egg-Free)18y&Older Influenza) 0.5 ml ASDIRECTED IM 06/01/20 11:30 Lorazepam (Ativan) 2 mg STAT STAT IM 05/26/20 01:04 05/26/20 01:06 DC 05/26/20 01:23 Lorazepam (Ativan) 2 mg STAT STAT PO 05/26/20 19:38 05/26/20 19:44 DC 05/26/20 19:47 Magnesium Hydroxide (Milk Of Magnesia) 30 ml DAILYPRN PRN PO CONSTIPATION 05/25/20 17:45 Olanzapine (ZyPREXA ZYDIS) 10 mg BID PO 05/30/20 09:00 06/02/20 11:31 DC 06/01/20 11:46 Olanzapine (ZyPREXA ZYDIS) 10 mg BID PO 06/08/20 21:00 06/15/20 19:22 Olanzapine (ZyPREXA ZYDIS) 10 mg Q4HP PRN PO ANXIETY/AGITATION 05/25/20 17:45 06/10/20 12:49 Olanzapine (ZyPREXA ZYDIS) 15 mg BID PO 06/02/20 21:00 06/02/20 12:08 DC Pneumococcal Polyvalent Vaccine (Prevnar 13) 0.5 ml ASDIRECTED IM 06/01/20 11:30 Trazodone HCl (Desyrel) 50 mg QHSP PRN PO INSOMNIA 05/25/20 17:45 05/27/20 22:39 Allergies Coded Allergies: No Known Allergies (Verified , 10/30/03) OLY WU DO Jun 22, 2020 09:10
--- NOTE | 2020-06-22 14:06 | MHIPNPDOC ---
[facility] Progress Note Progress Note DATE OF SERVICE: 06/20/20 Subjective HPI: Samira presents for follow up, however, she is consistently declining medication, but is loud and rambling when interviewed, no meaningful information is gleaned, as the patient is paranoid and angry, yelling "[employer]" when asked why she isn't taking medications. Objective Hygiene Speech: Rapid, incoherent Thought Form: Tangential. Judgement: Poor. Insight: Poor. Assessment F25.0 Schizoaffective disorder, bipolar type Plan Continue with treatment over objection proceedings, as she is in dire need of being started on treatment with no improvement otherwise. Vital Signs Vital Signs Date Time Temp Pulse Resp B/P (MAP) Pulse Ox O2 Delivery O2 Flow Rate FiO2 06/18/20 16:17 98.3 99 20 140/80 (100) Current Medications Current Medications Medications (Trade) Dose Ordered Sig/Holly Route PRN Reason Start Time Stop Time Status Last Admin Dose Admin Acetaminophen (Tylenol Tab) 650 mg Q6HP PRN PO HEADACHE or DISCOMFORT 05/25/20 17:45 06/12/20 09:42 Al Hydrox/Mg Hydrox/Simethicone (Mylanta) 30 ml Q4HP PRN PO HEARTBURN/INDIGESTION 05/25/20 17:45 Benztropine Mesylate (Cogentin) 0.5 mg DAILY PRN PO eps 05/30/20 11:15 Cariprazine (Vraylar) 1.5 mg DAILY PO 06/03/20 09:00 06/08/20 11:54 DC Diphenhydramine HCl (Benadryl) 50 mg STAT STAT IM 05/26/20 01:04 05/26/20 01:06 DC 05/26/20 01:22 Diphenhydramine HCl (Benadryl) 50 mg STAT STAT PO 05/26/20 19:38 05/26/20 19:44 DC 05/26/20 19:48 Divalproex Sodium (Depakote Er) 250 mg BID PO 05/30/20 09:00 06/02/20 11:31 DC 06/01/20 11:46 Divalproex Sodium (Depakote Er) 500 mg BID PO 06/02/20 21:00 06/15/20 19:22 Haloperidol (Haldol) 10 mg STAT STAT IM 05/26/20 01:04 05/26/20 01:06 DC 05/26/20 01:22 Haloperidol (Haldol) 10 mg STAT STAT IM 05/27/20 01:23 05/27/20 01:25 DC 05/27/20 01:28 Haloperidol (Haldol) 10 mg STAT STAT PO 05/26/20 19:38 05/26/20 19:44 DC 05/26/20 19:48 Home Med (Med Rec Complete!) ASDIRECTED XX 05/25/20 16:15 05/25/20 16:17 DC Influenza Virus Vaccine (Flublok Quad(Egg-Free)18y&Older Influenza) 0.5 ml ASDIRECTED IM 06/01/20 11:30 Lorazepam (Ativan) 2 mg STAT STAT IM 05/26/20 01:04 05/26/20 01:06 DC 05/26/20 01:23 Lorazepam (Ativan) 2 mg STAT STAT PO 05/26/20 19:38 05/26/20 19:44 DC 05/26/20 19:47 Magnesium Hydroxide (Milk Of Magnesia) 30 ml DAILYPRN PRN PO CONSTIPATION 05/25/20 17:45 Olanzapine (ZyPREXA ZYDIS) 10 mg BID PO 05/30/20 09:00 06/02/20 11:31 DC 06/01/20 11:46 Olanzapine (ZyPREXA ZYDIS) 10 mg BID PO 06/08/20 21:00 06/15/20 19:22 Olanzapine (ZyPREXA ZYDIS) 10 mg Q4HP PRN PO ANXIETY/AGITATION 05/25/20 17:45 06/10/20 12:49 Olanzapine (ZyPREXA ZYDIS) 15 mg BID PO 06/02/20 21:00 06/02/20 12:08 DC Pneumococcal Polyvalent Vaccine (Prevnar 13) 0.5 ml ASDIRECTED IM 06/01/20 11:30 Trazodone HCl (Desyrel) 50 mg QHSP PRN PO INSOMNIA 05/25/20 17:45 05/27/20 22:39 Allergies Coded Allergies: No Known Allergies (Verified , 10/30/03) OLY WU DO Jun 22, 2020 14:06
[2020-06-23] MEDS: OLANZapine ORAL DISINTEGRATING TAB 5MG PO PRN ×2 (06:10→12:37)
[2020-06-23] MEDS: DIVALPROEX 500MG *ER* TAB PO SCH ×3 (09:00→19:53)
[2020-06-23] MEDS: OLANZapine ORAL DISINTEGRATING TAB 5MG PO SCH ×3 (09:00→19:54)
--- NOTE | 2020-06-23 10:08 | MHIPNPDOC ---
[facility] Progress Note Progress Note DATE OF SERVICE: 06/23/20 Subjective HPI: Patient was attempted to be met with today. However, she was quite distorted and agitated during the majority of today. She yelled and screamed the top of her lungs to various unseen others. Objective Appearance: Appears to be stated age. Well groomed. Well nourished. Behavior: Paranoid. Highly distorted. Unable to engage in any reasonable conversation. Speech: Loud. Rambling. Judgement: Poor. Insight: Poor. Assessment F25.9 Schizoaffective disorder, unspecified Plan [facility] referral to follow shortly after if granted. Continue to pursue treatment over objection Vital Signs Vital Signs Date Time Temp Pulse Resp B/P (MAP) Pulse Ox O2 Delivery O2 Flow Rate FiO2 06/18/20 16:17 98.3 99 20 140/80 (100) Current Medications Current Medications Medications (Trade) Dose Ordered Sig/Holly Route PRN Reason Start Time Stop Time Status Last Admin Dose Admin Acetaminophen (Tylenol Tab) 650 mg Q6HP PRN PO HEADACHE or DISCOMFORT 05/25/20 17:45 06/12/20 09:42 Al Hydrox/Mg Hydrox/Simethicone (Mylanta) 30 ml Q4HP PRN PO HEARTBURN/INDIGESTION 05/25/20 17:45 Benztropine Mesylate (Cogentin) 0.5 mg DAILY PRN PO eps 05/30/20 11:15 Cariprazine (Vraylar) 1.5 mg DAILY PO 06/03/20 09:00 06/08/20 11:54 DC Diphenhydramine HCl (Benadryl) 50 mg STAT STAT IM 05/26/20 01:04 05/26/20 01:06 DC 05/26/20 01:22 Diphenhydramine HCl (Benadryl) 50 mg STAT STAT PO 05/26/20 19:38 05/26/20 19:44 DC 05/26/20 19:48 Divalproex Sodium (Depakote Er) 250 mg BID PO 05/30/20 09:00 06/02/20 11:31 DC 06/01/20 11:46 Divalproex Sodium (Depakote Er) 500 mg BID PO 06/02/20 21:00 06/15/20 19:22 Haloperidol (Haldol) 10 mg STAT STAT IM 05/26/20 01:04 05/26/20 01:06 DC 05/26/20 01:22 Haloperidol (Haldol) 10 mg STAT STAT IM 05/27/20 01:23 05/27/20 01:25 DC 05/27/20 01:28 Haloperidol (Haldol) 10 mg STAT STAT PO 05/26/20 19:38 05/26/20 19:44 DC 05/26/20 19:48 Home Med (Med Rec Complete!) ASDIRECTED XX 05/25/20 16:15 05/25/20 16:17 DC Influenza Virus Vaccine (Flublok Quad(Egg-Free)18y&Older Influenza) 0.5 ml ASDIRECTED IM 06/01/20 11:30 Lorazepam (Ativan) 2 mg STAT STAT IM 05/26/20 01:04 05/26/20 01:06 DC 05/26/20 01:23 Lorazepam (Ativan) 2 mg STAT STAT PO 05/26/20 19:38 05/26/20 19:44 DC 05/26/20 19:47 Magnesium Hydroxide (Milk Of Magnesia) 30 ml DAILYPRN PRN PO CONSTIPATION 05/25/20 17:45 Olanzapine (ZyPREXA ZYDIS) 10 mg BID PO 05/30/20 09:00 06/02/20 11:31 DC 06/01/20 11:46 Olanzapine (ZyPREXA ZYDIS) 10 mg BID PO 06/08/20 21:00 06/15/20 19:22 Olanzapine (ZyPREXA ZYDIS) 10 mg Q4HP PRN PO ANXIETY/AGITATION 05/25/20 17:45 06/23/20 06:10 Olanzapine (ZyPREXA ZYDIS) 15 mg BID PO 06/02/20 21:00 06/02/20 12:08 DC Pneumococcal Polyvalent Vaccine (Prevnar 13) 0.5 ml ASDIRECTED IM 06/01/20 11:30 Trazodone HCl (Desyrel) 50 mg QHSP PRN PO INSOMNIA 05/25/20 17:45 05/27/20 22:39 Allergies Coded Allergies: No Known Allergies (Verified , 10/30/03) OLY WU DO Jun 23, 2020 10:08
[2020-06-23] MEDS ORDERED: OXYMETAZOLINE 0.05% NASAL SPRAY (AFRIN) PRN (13:45)
[2020-06-24] MEDS: OLANZapine ORAL DISINTEGRATING TAB 5MG PO SCH ×2 (09:00→21:00)
[2020-06-24] MEDS: DIVALPROEX 500MG *ER* TAB PO SCH ×2 (09:00→21:00)
[2020-06-25] MEDS: DIVALPROEX 500MG *ER* TAB PO SCH ×2 (09:00→21:00)
[2020-06-25] MEDS: OLANZapine ORAL DISINTEGRATING TAB 5MG PO SCH ×2 (09:00→21:00)
[2020-06-25 18:11] VITALS: BP 136/87
[2020-06-26] MEDS: DIVALPROEX 500MG *ER* TAB PO SCH ×2 (09:00→21:00)
[2020-06-26] MEDS: OLANZapine ORAL DISINTEGRATING TAB 5MG PO SCH ×2 (09:00→21:00)
[2020-06-27] MEDS: OLANZapine ORAL DISINTEGRATING TAB 5MG PO SCH ×2 (09:00→21:00)
[2020-06-27] MEDS: DIVALPROEX 500MG *ER* TAB PO SCH ×2 (09:00→21:00)
--- NOTE | 2020-06-27 09:46 | MHIPNPDOC ---
[facility] Progress Note Progress Note DATE OF SERVICE: 06/27/20 Subjective HPI: Tim presents today for a check up. He is tangential and confused. He is very interested in ECT. Attempted to educate, however patient still refuses his medications waiting for treatment over objection order. Objective Appearance: Hygiene, fair. Cognition: Impaired secondary thought process. Thought Form: Tangential. Incoherent. Non-linear. Judgement: Poor. Insight: Poor. Assessment F20.9 Schizophrenia, unspecified Plan Await treatment over objection orders to begin treatment. Vital Signs Vital Signs Date Time Temp Pulse Resp B/P (MAP) Pulse Ox O2 Delivery O2 Flow Rate FiO2 06/26/20 08:25 Room Air 06/25/20 18:11 99.2 98 20 136/87 (103) Current Medications Current Medications Medications (Trade) Dose Ordered Sig/Holly Route PRN Reason Start Time Stop Time Status Last Admin Dose Admin Acetaminophen (Tylenol Tab) 650 mg Q6HP PRN PO HEADACHE or DISCOMFORT 05/25/20 17:45 06/12/20 09:42 Al Hydrox/Mg Hydrox/Simethicone (Mylanta) 30 ml Q4HP PRN PO HEARTBURN/INDIGESTION 05/25/20 17:45 Benztropine Mesylate (Cogentin) 0.5 mg DAILY PRN PO eps 05/30/20 11:15 Cariprazine (Vraylar) 1.5 mg DAILY PO 06/03/20 09:00 06/08/20 11:54 DC Diphenhydramine HCl (Benadryl) 50 mg STAT STAT IM 05/26/20 01:04 05/26/20 01:06 DC 05/26/20 01:22 Diphenhydramine HCl (Benadryl) 50 mg STAT STAT PO 05/26/20 19:38 05/26/20 19:44 DC 05/26/20 19:48 Divalproex Sodium (Depakote Er) 250 mg BID PO 05/30/20 09:00 06/02/20 11:31 DC 06/01/20 11:46 Divalproex Sodium (Depakote Er) 500 mg BID PO 06/02/20 21:00 06/15/20 19:22 Haloperidol (Haldol) 10 mg STAT STAT IM 05/26/20 01:04 05/26/20 01:06 DC 05/26/20 01:22 Haloperidol (Haldol) 10 mg STAT STAT IM 05/27/20 01:23 05/27/20 01:25 DC 05/27/20 01:28 Haloperidol (Haldol) 10 mg STAT STAT PO 05/26/20 19:38 05/26/20 19:44 DC 05/26/20 19:48 Home Med (Med Rec Complete!) ASDIRECTED XX 05/25/20 16:15 05/25/20 16:17 DC Influenza Virus Vaccine (Flublok Quad(Egg-Free)18y&Older Influenza) 0.5 ml ASDIRECTED IM 06/01/20 11:30 Lorazepam (Ativan) 2 mg STAT STAT IM 05/26/20 01:04 05/26/20 01:06 DC 05/26/20 01:23 Lorazepam (Ativan) 2 mg STAT STAT PO 05/26/20 19:38 05/26/20 19:44 DC 05/26/20 19:47 Magnesium Hydroxide (Milk Of Magnesia) 30 ml DAILYPRN PRN PO CONSTIPATION 05/25/20 17:45 Olanzapine (ZyPREXA ZYDIS) 10 mg BID PO 05/30/20 09:00 06/02/20 11:31 DC 06/01/20 11:46 Olanzapine (ZyPREXA ZYDIS) 10 mg BID PO 06/08/20 21:00 06/15/20 19:22 Olanzapine (ZyPREXA ZYDIS) 10 mg Q4HP PRN PO ANXIETY/AGITATION 05/25/20 17:45 06/23/20 12:37 Olanzapine (ZyPREXA ZYDIS) 15 mg BID PO 06/02/20 21:00 06/02/20 12:08 DC Oxymetazoline HCl (Afrin) 2 spray DAILYPRN PRN NA congestion 06/23/20 13:45 Pneumococcal Polyvalent Vaccine (Prevnar 13) 0.5 ml ASDIRECTED IM 06/01/20 11:30 Trazodone HCl (Desyrel) 50 mg QHSP PRN PO INSOMNIA 05/25/20 17:45 05/27/20 22:39 Allergies Coded Allergies: No Known Allergies (Verified , 10/30/03) OLY WU DO Jun 27, 2020 09:46
[2020-06-27 16:08] VITALS: BP 133/79
[2020-06-28] MEDS: DIVALPROEX 500MG *ER* TAB PO SCH ×2 (09:00→21:00)
[2020-06-28] MEDS: OLANZapine ORAL DISINTEGRATING TAB 5MG PO SCH ×2 (09:00→21:00)
--- NOTE | 2020-06-28 10:46 | MHIPNPDOC ---
[facility] Progress Note Progress Note DATE OF SERVICE: 06/28/20 Subjective HPI: Samira was attempted to met with today, but shes loud, incoherent, and generally dysthymic during the discussion. She was served with treatment options and it was discussed with her to take medications orally so that we could try to come up with a better option. She did not appear to appreciate any of these specific statements. Objective Appearance: Poor hygiene. Behavior: She is tangential, loud, incoherent, psychotic, paranoid, and delusional. Impaired associations. Loud rambling. Cognition: Impaired secondary to thought process. Judgement: Poor. Insight: Poor. Assessment F25.9 Schizoaffective disorder, unspecified Plan Offer patient to take oral medications, now that she has been served. Hopefully, we can avert having to force medications on her. However, if she does not begin taking them this evening, I will be forced to utilize our treatment over objection and begin her treatment. Shes currently triage for transfer to [facility]. Vital Signs Vital Signs Date Time Temp Pulse Resp B/P (MAP) Pulse Ox O2 Delivery O2 Flow Rate FiO2 06/28/20 10:32 Room Air 06/27/20 16:08 97.2 98 18 133/79 (97) Current Medications Current Medications Medications (Trade) Dose Ordered Sig/Holly Route PRN Reason Start Time Stop Time Status Last Admin Dose Admin Acetaminophen (Tylenol Tab) 650 mg Q6HP PRN PO HEADACHE or DISCOMFORT 05/25/20 17:45 06/12/20 09:42 Al Hydrox/Mg Hydrox/Simethicone (Mylanta) 30 ml Q4HP PRN PO HEARTBURN/INDIGESTION 05/25/20 17:45 Benztropine Mesylate (Cogentin) 0.5 mg DAILY PRN PO eps 05/30/20 11:15 Cariprazine (Vraylar) 1.5 mg DAILY PO 06/03/20 09:00 06/08/20 11:54 DC Diphenhydramine HCl (Benadryl) 50 mg STAT STAT IM 05/26/20 01:04 05/26/20 01:06 DC 05/26/20 01:22 Diphenhydramine HCl (Benadryl) 50 mg STAT STAT PO 05/26/20 19:38 05/26/20 19:44 DC 05/26/20 19:48 Divalproex Sodium (Depakote Er) 250 mg BID PO 05/30/20 09:00 06/02/20 11:31 DC 06/01/20 11:46 Divalproex Sodium (Depakote Er) 500 mg BID PO 06/02/20 21:00 06/15/20 19:22 Haloperidol (Haldol) 10 mg STAT STAT IM 05/26/20 01:04 05/26/20 01:06 DC 05/26/20 01:22 Haloperidol (Haldol) 10 mg STAT STAT IM 05/27/20 01:23 05/27/20 01:25 DC 05/27/20 01:28 Haloperidol (Haldol) 10 mg STAT STAT PO 05/26/20 19:38 05/26/20 19:44 DC 05/26/20 19:48 Home Med (Med Rec Complete!) ASDIRECTED XX 05/25/20 16:15 05/25/20 16:17 DC Influenza Virus Vaccine (Flublok Quad(Egg-Free)18y&Older Influenza) 0.5 ml ASDIRECTED IM 06/01/20 11:30 Lorazepam (Ativan) 2 mg STAT STAT IM 05/26/20 01:04 05/26/20 01:06 DC 05/26/20 01:23 Lorazepam (Ativan) 2 mg STAT STAT PO 05/26/20 19:38 05/26/20 19:44 DC 05/26/20 19:47 Magnesium Hydroxide (Milk Of Magnesia) 30 ml DAILYPRN PRN PO CONSTIPATION 05/25/20 17:45 Olanzapine (ZyPREXA ZYDIS) 10 mg BID PO 05/30/20 09:00 06/02/20 11:31 DC 06/01/20 11:46 Olanzapine (ZyPREXA ZYDIS) 10 mg BID PO 06/08/20 21:00 06/15/20 19:22 Olanzapine (ZyPREXA ZYDIS) 10 mg Q4HP PRN PO ANXIETY/AGITATION 05/25/20 17:45 06/23/20 12:37 Olanzapine (ZyPREXA ZYDIS) 15 mg BID PO 06/02/20 21:00 06/02/20 12:08 DC Oxymetazoline HCl (Afrin) 2 spray DAILYPRN PRN NA congestion 06/23/20 13:45 Pneumococcal Polyvalent Vaccine (Prevnar 13) 0.5 ml ASDIRECTED IM 06/01/20 11:30 Trazodone HCl (Desyrel) 50 mg QHSP PRN PO INSOMNIA 05/25/20 17:45 05/27/20 22:39 Allergies Coded Allergies: No Known Allergies (Verified , 10/30/03) OLY WU DO Jun 28, 2020 10:46
--- NOTE | 2020-06-28 11:04 | MHIPNPDOC ---
[facility] Progress Note Progress Note DATE OF SERVICE: 06/27/20 Subjective HPI: Samira presents today for check up. She is generally incoherent and screaming. Unable to relate any reasonable history in today's visit. The patient otherwise continues to consistently talk about [place], but is unable to form coherent sentences. Objective Appearance: Hygiene, poor. Behavior: Tangential. Paranoid. Psychotic. Loud. Cognition: Secondary thought process. Judgement: Poor. Insight: Poor. Assessment F25.9 Schizoaffective disorder, unspecified Plan [facility] referral in process. Await treatment over objection orders beginning more effective treatments. Vital Signs Vital Signs Date Time Temp Pulse Resp B/P (MAP) Pulse Ox O2 Delivery O2 Flow Rate FiO2 06/28/20 10:32 Room Air 06/27/20 16:08 97.2 98 18 133/79 (97) Current Medications Current Medications Medications (Trade) Dose Ordered Sig/Holly Route PRN Reason Start Time Stop Time Status Last Admin Dose Admin Acetaminophen (Tylenol Tab) 650 mg Q6HP PRN PO HEADACHE or DISCOMFORT 05/25/20 17:45 06/12/20 09:42 Al Hydrox/Mg Hydrox/Simethicone (Mylanta) 30 ml Q4HP PRN PO HEARTBURN/INDIGESTION 05/25/20 17:45 Benztropine Mesylate (Cogentin) 0.5 mg DAILY PRN PO eps 05/30/20 11:15 Cariprazine (Vraylar) 1.5 mg DAILY PO 06/03/20 09:00 06/08/20 11:54 DC Diphenhydramine HCl (Benadryl) 50 mg STAT STAT IM 05/26/20 01:04 05/26/20 01:06 DC 05/26/20 01:22 Diphenhydramine HCl (Benadryl) 50 mg STAT STAT PO 05/26/20 19:38 05/26/20 19:44 DC 05/26/20 19:48 Divalproex Sodium (Depakote Er) 250 mg BID PO 05/30/20 09:00 06/02/20 11:31 DC 06/01/20 11:46 Divalproex Sodium (Depakote Er) 500 mg BID PO 06/02/20 21:00 06/15/20 19:22 Haloperidol (Haldol) 10 mg STAT STAT IM 05/26/20 01:04 05/26/20 01:06 DC 05/26/20 01:22 Haloperidol (Haldol) 10 mg STAT STAT IM 05/27/20 01:23 05/27/20 01:25 DC 05/27/20 01:28 Haloperidol (Haldol) 10 mg STAT STAT PO 05/26/20 19:38 05/26/20 19:44 DC 05/26/20 19:48 Home Med (Med Rec Complete!) ASDIRECTED XX 05/25/20 16:15 05/25/20 16:17 DC Influenza Virus Vaccine (Flublok Quad(Egg-Free)18y&Older Influenza) 0.5 ml ASDIRECTED IM 06/01/20 11:30 Lorazepam (Ativan) 2 mg STAT STAT IM 05/26/20 01:04 05/26/20 01:06 DC 05/26/20 01:23 Lorazepam (Ativan) 2 mg STAT STAT PO 05/26/20 19:38 05/26/20 19:44 DC 05/26/20 19:47 Magnesium Hydroxide (Milk Of Magnesia) 30 ml DAILYPRN PRN PO CONSTIPATION 05/25/20 17:45 Olanzapine (ZyPREXA ZYDIS) 10 mg BID PO 05/30/20 09:00 06/02/20 11:31 DC 06/01/20 11:46 Olanzapine (ZyPREXA ZYDIS) 10 mg BID PO 06/08/20 21:00 06/15/20 19:22 Olanzapine (ZyPREXA ZYDIS) 10 mg Q4HP PRN PO ANXIETY/AGITATION 05/25/20 17:45 06/23/20 12:37 Olanzapine (ZyPREXA ZYDIS) 15 mg BID PO 06/02/20 21:00 06/02/20 12:08 DC Oxymetazoline HCl (Afrin) 2 spray DAILYPRN PRN NA congestion 06/23/20 13:45 Pneumococcal Polyvalent Vaccine (Prevnar 13) 0.5 ml ASDIRECTED IM 06/01/20 11:30 Trazodone HCl (Desyrel) 50 mg QHSP PRN PO INSOMNIA 05/25/20 17:45 05/27/20 22:39 Allergies Coded Allergies: No Known Allergies (Verified , 10/30/03) OLY WU DO Jun 28, 2020 11:04
[2020-06-28 16:45] VITALS: BP 112/60
[2020-06-28] MEDS: OLANZapine ORAL DISINTEGRATING TAB 5MG PO PRN (18:17)
[2020-06-29] MEDS: DIVALPROEX 500MG *ER* TAB PO SCH ×2 (09:00→21:00)
[2020-06-29] MEDS: OLANZapine INTRAMUSCULAR 10MG VIAL IM SCH ×2 (09:00→21:00)
[2020-06-29] MEDS: OLANZapine ORAL DISINTEGRATING TAB 5MG PO SCH ×3 (09:00→22:06)
[2020-06-29] MEDS ORDERED: OLANZapine INTRAMUSCULAR 10MG VIAL IM PRN ×2 (09:00→21:00)
--- NOTE | 2020-06-29 10:58 | MHIPNPDOC ---
[facility] Progress Note Progress Note DATE OF SERVICE: 06/29/20 Subjective HPI: Patients still heavily distorted, incoherent, screaming throughout the day. She's met with briefly, but she is unable to engage in any interview that is coherent. Objective Behavior: Incoherent. Tangential. Speech: Loud. Rambling. Thought Form: Psychotic with loose associations. Judgement: Poor. Insight: Poor. Assessment F25.9 Schizoaffective disorder, unspecified Plan Start treatment over objection. Treatment 5 milligrams of Zyprexa BID with IMF refused. Continue with referral for [place] [facility] Vital Signs Vital Signs Date Time Temp Pulse Resp B/P (MAP) Pulse Ox O2 Delivery O2 Flow Rate FiO2 06/29/20 10:04 Room Air 06/28/20 16:45 98.1 90 16 112/60 (77) Current Medications Current Medications Medications (Trade) Dose Ordered Sig/Holly Route PRN Reason Start Time Stop Time Status Last Admin Dose Admin Acetaminophen (Tylenol Tab) 650 mg Q6HP PRN PO HEADACHE or DISCOMFORT 05/25/20 17:45 06/12/20 09:42 Al Hydrox/Mg Hydrox/Simethicone (Mylanta) 30 ml Q4HP PRN PO HEARTBURN/INDIGESTION 05/25/20 17:45 Benztropine Mesylate (Cogentin) 0.5 mg DAILY PRN PO eps 05/30/20 11:15 Cariprazine (Vraylar) 1.5 mg DAILY PO 06/03/20 09:00 06/08/20 11:54 DC Diphenhydramine HCl (Benadryl) 50 mg STAT STAT IM 05/26/20 01:04 05/26/20 01:06 DC 05/26/20 01:22 Diphenhydramine HCl (Benadryl) 50 mg STAT STAT PO 05/26/20 19:38 05/26/20 19:44 DC 05/26/20 19:48 Divalproex Sodium (Depakote Er) 250 mg BID PO 05/30/20 09:00 06/02/20 11:31 DC 06/01/20 11:46 Divalproex Sodium (Depakote Er) 500 mg BID PO 06/02/20 21:00 06/15/20 19:22 Haloperidol (Haldol) 10 mg STAT STAT IM 05/26/20 01:04 05/26/20 01:06 DC 05/26/20 01:22 Haloperidol (Haldol) 10 mg STAT STAT IM 05/27/20 01:23 05/27/20 01:25 DC 05/27/20 01:28 Haloperidol (Haldol) 10 mg STAT STAT PO 05/26/20 19:38 05/26/20 19:44 DC 05/26/20 19:48 Home Med (Med Rec Complete!) ASDIRECTED XX 05/25/20 16:15 05/25/20 16:17 DC Influenza Virus Vaccine (Flublok Quad(Egg-Free)18y&Older Influenza) 0.5 ml ASDIRECTED IM 06/01/20 11:30 Lorazepam (Ativan) 2 mg STAT STAT IM 05/26/20 01:04 05/26/20 01:06 DC 05/26/20 01:23 Lorazepam (Ativan) 2 mg STAT STAT PO 05/26/20 19:38 05/26/20 19:44 DC 05/26/20 19:47 Magnesium Hydroxide (Milk Of Magnesia) 30 ml DAILYPRN PRN PO CONSTIPATION 05/25/20 17:45 Olanzapine (ZyPREXA ZYDIS) 10 mg BID PO 05/30/20 09:00 06/02/20 11:31 DC 06/01/20 11:46 Olanzapine (ZyPREXA ZYDIS) 10 mg BID PO 06/08/20 21:00 06/15/20 19:22 Olanzapine (ZyPREXA ZYDIS) 10 mg Q4HP PRN PO ANXIETY/AGITATION 05/25/20 17:45 06/28/20 18:17 Olanzapine (ZyPREXA ZYDIS) 15 mg BID PO 06/02/20 21:00 06/02/20 12:08 DC Oxymetazoline HCl (Afrin) 2 spray DAILYPRN PRN NA congestion 06/23/20 13:45 Pneumococcal Polyvalent Vaccine (Prevnar 13) 0.5 ml ASDIRECTED IM 06/01/20 11:30 Trazodone HCl (Desyrel) 50 mg QHSP PRN PO INSOMNIA 05/25/20 17:45 9/11/20 22:39 Allergies Coded Allergies: No Known Allergies (Verified , 10/30/03) OLY WU DO Jun 29, 2020 10:58
[2020-06-29] MEDS ORDERED: OLANZapine INTRAMUSCULAR 10MG VIAL IM SCH (11:47)
[2020-06-29] MEDS: OLANZapine ORAL DISINTEGRATING TAB 5MG PO PRN (17:30)
[2020-06-30] MEDS: ACETAMINOPHEN TAB 650MG DOSE (2X325MG) PO PRN (00:44)
[2020-06-30] MEDS: OLANZapine INTRAMUSCULAR 10MG VIAL IM SCH ×2 (09:00→20:24)
[2020-06-30] MEDS: DIVALPROEX 500MG *ER* TAB PO SCH ×2 (09:00→20:23)
[2020-06-30] MEDS: OLANZapine ORAL DISINTEGRATING TAB 5MG PO SCH ×2 (09:20→20:23)
--- NOTE | 2020-06-30 09:43 | MHIPNPDOC ---
[facility] Progress Note Progress Note DATE OF SERVICE: 06/30/20 Subjective HPI: Samira was attempted to be met with today, however, she is highly distorted, angry, irritable, and screaming at the provider. She is generally still incoherent and quite distorted. She is not able to engage in any reasonable conversation. Objective Behavior: Rambling, Incoherent, Loud, and screaming. Psychotic. Cognition: Loose associations. Judgement: Poor. Insight: Poor. Assessment F25.9 Schizoaffective disorder, unspecified Plan Continue Zyprexa 5 mg BID with treatment over objection parameters. Continue with referral for [place]. Vital Signs Vital Signs Date Time Temp Pulse Resp B/P (MAP) Pulse Ox O2 Delivery O2 Flow Rate FiO2 06/29/20 10:04 Room Air 06/28/20 16:45 98.1 90 16 112/60 (77) Current Medications Current Medications Medications (Trade) Dose Ordered Sig/Holly Route PRN Reason Start Time Stop Time Status Last Admin Dose Admin Acetaminophen (Tylenol Tab) 650 mg Q6HP PRN PO HEADACHE or DISCOMFORT 05/25/20 17:45 06/30/20 00:44 Al Hydrox/Mg Hydrox/Simethicone (Mylanta) 30 ml Q4HP PRN PO HEARTBURN/INDIGESTION 05/25/20 17:45 Benztropine Mesylate (Cogentin) 0.5 mg DAILY PRN PO eps 05/30/20 11:15 Cariprazine (Vraylar) 1.5 mg DAILY PO 06/03/20 09:00 06/08/20 11:54 DC Diphenhydramine HCl (Benadryl) 50 mg STAT STAT IM 05/26/20 01:04 05/26/20 01:06 DC 05/26/20 01:22 Diphenhydramine HCl (Benadryl) 50 mg STAT STAT PO 05/26/20 19:38 05/26/20 19:44 DC 05/26/20 19:48 Divalproex Sodium (Depakote Er) 250 mg BID PO 05/30/20 09:00 06/02/20 11:31 DC 06/01/20 11:46 Divalproex Sodium (Depakote Er) 500 mg BID PO 06/02/20 21:00 06/15/20 19:22 Haloperidol (Haldol) 10 mg STAT STAT IM 05/26/20 01:04 05/26/20 01:06 DC 05/26/20 01:22 Haloperidol (Haldol) 10 mg STAT STAT IM 05/27/20 01:23 05/27/20 01:25 DC 05/27/20 01:28 Haloperidol (Haldol) 10 mg STAT STAT PO 05/26/20 19:38 05/26/20 19:44 DC 05/26/20 19:48 Home Med (Med Rec Complete!) ASDIRECTED XX 05/25/20 16:15 05/25/20 16:17 DC Influenza Virus Vaccine (Flublok Quad(Egg-Free)18y&Older Influenza) 0.5 ml ASDIRECTED IM 06/01/20 11:30 Lorazepam (Ativan) 2 mg STAT STAT IM 05/26/20 01:04 05/26/20 01:06 DC 05/26/20 01:23 Lorazepam (Ativan) 2 mg STAT STAT PO 05/26/20 19:38 05/26/20 19:44 DC 05/26/20 19:47 Magnesium Hydroxide (Milk Of Magnesia) 30 ml DAILYPRN PRN PO CONSTIPATION 05/25/20 17:45 Olanzapine (ZyPREXA ZYDIS) 10 mg BID PO 05/30/20 09:00 06/02/20 11:31 DC 06/01/20 11:46 Olanzapine (ZyPREXA ZYDIS) 10 mg BID PO 06/08/20 21:00 06/30/20 09:20 Olanzapine (ZyPREXA ZYDIS) 10 mg Q4HP PRN PO ANXIETY/AGITATION 05/25/20 17:45 06/29/20 17:30 Olanzapine (ZyPREXA ZYDIS) 15 mg BID PO 06/02/20 21:00 06/02/20 12:08 DC Olanzapine (Zyprexa Intramuscular) 5 mg BID IM 06/29/20 09:00 Olanzapine (Zyprexa Intramuscular) 5 mg BID IM 06/29/20 11:47 06/29/20 11:48 DC Olanzapine (Zyprexa Intramuscular) 5 mg BID PRN IM IF REFUSING ORAL, SEE TOO 06/29/20 09:00 06/29/20 11:47 DC Olanzapine (Zyprexa Intramuscular) 5 mg BID PRN IM IF REFUSING ORAL, SEE TOO 06/29/20 21:00 06/29/20 11:42 DC Oxymetazoline HCl (Afrin) 2 spray DAILYPRN PRN NA congestion 06/23/20 13:45 Pneumococcal Polyvalent Vaccine (Prevnar 13) 0.5 ml ASDIRECTED IM 06/01/20 11:30 Trazodone HCl (Desyrel) 50 mg QHSP PRN PO INSOMNIA 05/25/20 17:45 05/27/20 22:39 Allergies Coded Allergies: No Known Allergies (Verified , 10/30/03) OLY WU DO Jun 30, 2020 09:43
[2020-06-30] MEDS: OLANZapine ORAL DISINTEGRATING TAB 5MG PO PRN (17:29)
[2020-07-01] MEDS: OLANZapine INTRAMUSCULAR 10MG VIAL IM SCH ×2 (08:56→21:00)
[2020-07-01] MEDS: OLANZapine ORAL DISINTEGRATING TAB 5MG PO SCH ×2 (08:56→21:10)
[2020-07-01] MEDS: DIVALPROEX 500MG *ER* TAB PO SCH ×2 (09:00→20:47)
--- NOTE | 2020-07-01 10:33 | MHIPNPDOC ---
[facility] Progress Note Progress Note DATE OF SERVICE: 07/01/20 Subjective HPI: Samson is met with multiple times throughout the day. She is much less prone to screaming and appears much more engaged during the discussion. She does state that she feels the Zyprexa is helpful, and she is more amenable and less angry today after getting several doses of it. She is unable to engage in a full conversation, as shes still quite tangential, but otherwise, has not engaged in any other discussions. Objective Speech: Incoherent. Thought Form: Tangential. Nonlinear but improved. Less irritable and angry. Judgement: Mildly improved. Insight: Mildly improved. Assessment F25.0 Schizoaffective disorder, bipolar type Plan Continue Zyprexa. Triage to [place]. Vital Signs Vital Signs Date Time Temp Pulse Resp B/P (MAP) Pulse Ox O2 Delivery O2 Flow Rate FiO2 06/30/20 09:05 Room Air 06/28/20 16:45 98.1 90 16 112/60 (77) Current Medications Current Medications Medications (Trade) Dose Ordered Sig/Holly Route PRN Reason Start Time Stop Time Status Last Admin Dose Admin Acetaminophen (Tylenol Tab) 650 mg Q6HP PRN PO HEADACHE or DISCOMFORT 05/25/20 17:45 06/30/20 00:44 Al Hydrox/Mg Hydrox/Simethicone (Mylanta) 30 ml Q4HP PRN PO HEARTBURN/INDIGESTION 05/25/20 17:45 Benztropine Mesylate (Cogentin) 0.5 mg DAILY PRN PO eps 05/30/20 11:15 Cariprazine (Vraylar) 1.5 mg DAILY PO 06/03/20 09:00 06/08/20 11:54 DC Diphenhydramine HCl (Benadryl) 50 mg STAT STAT IM 05/26/20 01:04 05/26/20 01:06 DC 05/26/20 01:22 Diphenhydramine HCl (Benadryl) 50 mg STAT STAT PO 05/26/20 19:38 05/26/20 19:44 DC 05/26/20 19:48 Divalproex Sodium (Depakote Er) 250 mg BID PO 05/30/20 09:00 06/02/20 11:31 DC 06/01/20 11:46 Divalproex Sodium (Depakote Er) 500 mg BID PO 06/02/20 21:00 06/15/20 19:22 Haloperidol (Haldol) 10 mg STAT STAT IM 05/26/20 01:04 05/26/20 01:06 DC 05/26/20 01:22 Haloperidol (Haldol) 10 mg STAT STAT IM 05/27/20 01:23 05/27/20 01:25 DC 05/27/20 01:28 Haloperidol (Haldol) 10 mg STAT STAT PO 05/26/20 19:38 05/26/20 19:44 DC 05/26/20 19:48 Home Med (Med Rec Complete!) ASDIRECTED XX 05/25/20 16:15 05/25/20 16:17 DC Influenza Virus Vaccine (Flublok Quad(Egg-Free)18y&Older Influenza) 0.5 ml ASDIRECTED IM 06/01/20 11:30 Lorazepam (Ativan) 2 mg STAT STAT IM 05/26/20 01:04 05/26/20 01:06 DC 05/26/20 01:23 Lorazepam (Ativan) 2 mg STAT STAT PO 05/26/20 19:38 05/26/20 19:44 DC 05/26/20 19:47 Magnesium Hydroxide (Milk Of Magnesia) 30 ml DAILYPRN PRN PO CONSTIPATION 05/25/20 17:45 Olanzapine (ZyPREXA ZYDIS) 10 mg BID PO 05/30/20 09:00 06/02/20 11:31 DC 06/01/20 11:46 Olanzapine (ZyPREXA ZYDIS) 10 mg BID PO 06/08/20 21:00 07/01/20 08:56 Olanzapine (ZyPREXA ZYDIS) 10 mg Q4HP PRN PO ANXIETY/AGITATION 05/25/20 17:45 06/30/20 17:29 Olanzapine (ZyPREXA ZYDIS) 15 mg BID PO 06/02/20 21:00 06/02/20 12:08 DC Olanzapine (Zyprexa Intramuscular) 5 mg BID IM 06/29/20 09:00 Olanzapine (Zyprexa Intramuscular) 5 mg BID IM 06/29/20 11:47 06/29/20 11:48 DC Olanzapine (Zyprexa Intramuscular) 5 mg BID PRN IM IF REFUSING ORAL, SEE TOO 06/29/20 09:00 06/29/20 11:47 DC Olanzapine (Zyprexa Intramuscular) 5 mg BID PRN IM IF REFUSING ORAL, SEE TOO 06/29/20 21:00 06/29/20 11:42 DC Oxymetazoline HCl (Afrin) 2 spray DAILYPRN PRN NA congestion 06/23/20 13:45 Pneumococcal Polyvalent Vaccine (Prevnar 13) 0.5 ml ASDIRECTED IM 06/01/20 11:30 Trazodone HCl (Desyrel) 50 mg QHSP PRN PO INSOMNIA 05/25/20 17:45 05/27/20 22:39 Allergies Coded Allergies: No Known Allergies (Verified , 10/30/03) OLY WU DO Jul 01, 2020 10:33
[2020-07-01 16:12] VITALS: BP 128/82
[2020-07-02] MEDS: OLANZapine INTRAMUSCULAR 10MG VIAL IM SCH ×2 (09:00→21:00)
[2020-07-02] MEDS: OLANZapine ORAL DISINTEGRATING TAB 5MG PO SCH ×2 (09:20→20:10)
[2020-07-02] MEDS: DIVALPROEX 500MG *ER* TAB PO SCH ×2 (09:22→20:09)
[2020-07-02] MEDS: OLANZapine ORAL DISINTEGRATING TAB 5MG PO PRN (15:05)
[2020-07-03] MEDS: ACETAMINOPHEN TAB 650MG DOSE (2X325MG) PO PRN (00:09)
[2020-07-03] MEDS: OLANZapine ORAL DISINTEGRATING TAB 5MG PO PRN (04:33)
[2020-07-03] MEDS: DIVALPROEX 500MG *ER* TAB PO SCH ×2 (08:18→20:54)
[2020-07-03] MEDS: OLANZapine INTRAMUSCULAR 10MG VIAL IM SCH ×2 (08:18→20:54)
[2020-07-03] MEDS: OLANZapine ORAL DISINTEGRATING TAB 5MG PO SCH ×2 (08:18→20:48)
[2020-07-04] MEDS: OLANZapine ORAL DISINTEGRATING TAB 5MG PO SCH ×2 (08:23→19:45)
[2020-07-04] MEDS: OLANZapine INTRAMUSCULAR 10MG VIAL IM SCH ×2 (08:24→20:31)
[2020-07-04] MEDS: DIVALPROEX 500MG *ER* TAB PO SCH ×2 (09:00→20:31)
--- NOTE | 2020-07-04 09:55 | MHIPNPDOC ---
[facility] Progress Note Progress Note DATE OF SERVICE: 07/04/20 Subjective HPI: Samira presents today for her schizoaffective disorder. The patient was seen today. She generally has been screaming less, although she continues to state that she has various objects inserted into her. The discussion is quite unusual. It's difficult at times to understand what she's saying, as she confuses her words during the majority of it. Nursing staff have noticed that she's somewhat more engaged but generally is less loud and distressed since starting the Zyprexa. She still asks about [facility] but leaves when discussion is not available anymore. Objective Appearance: Hygiene fair. Affect: Less irritable. Speech: Loud. Thought Form: Tangential. Judgement: Poor. Insight: Poor. Assessment F25.9 Schizoaffective disorder, unspecified Plan Continue treatment over objection with Zyprexa 5mg BID with Haldol. It appears to be helping her be more stable, although a long-acting injectable would be ideal. Continue with the attempted referral for a long-term, and she will take some time to resolve. Discharge planning is critical to ensure more stability. She appears uninterested involving herself with [facility]. Vital Signs Vital Signs Date Time Temp Pulse Resp B/P (MAP) Pulse Ox O2 Delivery O2 Flow Rate FiO2 07/02/20 10:51 Room Air 07/01/20 16:12 98.5 94 18 128/82 (97) Current Medications Current Medications Medications (Trade) Dose Ordered Sig/Holly Route PRN Reason Start Time Stop Time Status Last Admin Dose Admin Acetaminophen (Tylenol Tab) 650 mg Q6HP PRN PO HEADACHE or DISCOMFORT 05/25/20 17:45 07/03/20 00:09 Al Hydrox/Mg Hydrox/Simethicone (Mylanta) 30 ml Q4HP PRN PO HEARTBURN/INDIGESTION 05/25/20 17:45 Benztropine Mesylate (Cogentin) 0.5 mg DAILY PRN PO eps 05/30/20 11:15 Cariprazine (Vraylar) 1.5 mg DAILY PO 06/03/20 09:00 06/08/20 11:54 DC Diphenhydramine HCl (Benadryl) 50 mg STAT STAT IM 05/26/20 01:04 05/26/20 01:06 DC 05/26/20 01:22 Diphenhydramine HCl (Benadryl) 50 mg STAT STAT PO 05/26/20 19:38 05/26/20 19:44 DC 05/26/20 19:48 Divalproex Sodium (Depakote Er) 250 mg BID PO 05/30/20 09:00 06/02/20 11:31 DC 06/01/20 11:46 Divalproex Sodium (Depakote Er) 500 mg BID PO 06/02/20 21:00 07/02/20 20:09 Haloperidol (Haldol) 10 mg STAT STAT IM 05/26/20 01:04 05/26/20 01:06 DC 05/26/20 01:22 Haloperidol (Haldol) 10 mg STAT STAT IM 05/27/20 01:23 05/27/20 01:25 DC 05/27/20 01:28 Haloperidol (Haldol) 10 mg STAT STAT PO 05/26/20 19:38 05/26/20 19:44 DC 05/26/20 19:48 Home Med (Med Rec Complete!) ASDIRECTED XX 05/25/20 16:15 05/25/20 16:17 DC Influenza Virus Vaccine (Flublok Quad(Egg-Free)18y&Older Influenza) 0.5 ml ASDIRECTED IM 06/01/20 11:30 07/02/20 10:41 Lorazepam (Ativan) 2 mg STAT STAT IM 05/26/20 01:04 05/26/20 01:06 DC 05/26/20 01:23 Lorazepam (Ativan) 2 mg STAT STAT PO 05/26/20 19:38 05/26/20 19:44 DC 05/26/20 19:47 Magnesium Hydroxide (Milk Of Magnesia) 30 ml DAILYPRN PRN PO CONSTIPATION 05/25/20 17:45 Olanzapine (ZyPREXA ZYDIS) 10 mg BID PO 05/30/20 09:00 06/02/20 11:31 DC 06/01/20 11:46 Olanzapine (ZyPREXA ZYDIS) 10 mg BID PO 06/08/20 21:00 07/04/20 08:23 Olanzapine (ZyPREXA ZYDIS) 10 mg Q4HP PRN PO ANXIETY/AGITATION 05/25/20 17:45 07/03/20 04:33 Olanzapine (ZyPREXA ZYDIS) 15 mg BID PO 06/02/20 21:00 06/02/20 12:08 DC Olanzapine (Zyprexa Intramuscular) 5 mg BID IM 06/29/20 09:00 Olanzapine (Zyprexa Intramuscular) 5 mg BID IM 06/29/20 11:47 06/29/20 11:48 DC Olanzapine (Zyprexa Intramuscular) 5 mg BID PRN IM IF REFUSING ORAL, SEE TOO 06/29/20 09:00 06/29/20 11:47 DC Olanzapine (Zyprexa Intramuscular) 5 mg BID PRN IM IF REFUSING ORAL, SEE TOO 06/29/20 21:00 06/29/20 11:42 DC Oxymetazoline HCl (Afrin) 2 spray DAILYPRN PRN NA congestion 06/23/20 13:45 Pneumococcal Polyvalent Vaccine (Prevnar 13) 0.5 ml ASDIRECTED IM 06/01/20 11:30 07/02/20 10:40 Trazodone HCl (Desyrel) 50 mg QHSP PRN PO INSOMNIA 05/25/20 17:45 05/27/20 22:39 Allergies Coded Allergies: No Known Allergies (Verified , 10/30/03) OLY WU DO Jul 04, 2020 09:55
[2020-07-05] MEDS: DIVALPROEX 500MG *ER* TAB PO SCH ×3 (09:00→21:06)
[2020-07-05] MEDS: OLANZapine INTRAMUSCULAR 10MG VIAL IM SCH ×2 (09:00→21:00)
[2020-07-05] MEDS: OLANZapine ORAL DISINTEGRATING TAB 5MG PO SCH ×2 (09:40→21:05)
[2020-07-06] MEDS: OLANZapine INTRAMUSCULAR 10MG VIAL IM SCH ×2 (09:00→19:50)
[2020-07-06] MEDS: OLANZapine ORAL DISINTEGRATING TAB 5MG PO SCH ×2 (09:50→19:49)
[2020-07-06] MEDS: DIVALPROEX 500MG *ER* TAB PO SCH ×2 (09:51→19:49)
[2020-07-06 17:22] VITALS: BP 157/92
[2020-07-07 07:24] VITALS: BP 134/88
[2020-07-07] MEDS: OLANZapine INTRAMUSCULAR 10MG VIAL IM SCH ×2 (09:00→20:30)
[2020-07-07] MEDS: OLANZapine ORAL DISINTEGRATING TAB 5MG PO SCH ×2 (09:44→20:00)
[2020-07-07] MEDS: DIVALPROEX 500MG *ER* TAB PO SCH ×2 (09:46→20:00)
--- NOTE | 2020-07-07 10:32 | MHIPNPDOC ---
[facility] Progress Note Progress Note DATE OF SERVICE: 07/07/20 Subjective HPI: Attempted to meet with patient, however, still quite distorted and psychotic, she's rapid and tangential unable to reason, any statement other than to describe the Zyprexa's helping her thoughts. Objective General: poor Speech: rapid Thought processes: tangential Thought content: psychotic delusions Abstract reasoning, and computation: impaired Description of associations: imparied Description of abnormal or psychotic thoughts:Unclear, appears to have psychotic processes going on. Judgment: poor Insight: poor Orientation: Alert and orientated 3 Recent and remote memory: Intact Attention span and concentration: impaired secondary to thought process Fund of knowledge: unable to determine Mood: "helping" Affect: flat, little reactivity Assessment schizoaffective disorder, bipolar type Plan Increase Zyprexa to 15 mg BID with treatment of her objection 5 mg BID will order EKG monitoring of QTC prolongation Vital Signs Vital Signs Date Time Temp Pulse Resp B/P (MAP) Pulse Ox O2 Delivery O2 Flow Rate FiO2 07/07/20 07:24 98.4 85 16 134/88 (103) 97 Room Air Current Medications Current Medications Medications (Trade) Dose Ordered Sig/Holly Route PRN Reason Start Time Stop Time Status Last Admin Dose Admin Acetaminophen (Tylenol Tab) 650 mg Q6HP PRN PO HEADACHE or DISCOMFORT 05/25/20 17:45 07/03/20 00:09 Al Hydrox/Mg Hydrox/Simethicone (Mylanta) 30 ml Q4HP PRN PO HEARTBURN/INDIGESTION 05/25/20 17:45 Benztropine Mesylate (Cogentin) 0.5 mg DAILY PRN PO eps 05/30/20 11:15 Cariprazine (Vraylar) 1.5 mg DAILY PO 06/03/20 09:00 06/08/20 11:54 DC Diphenhydramine HCl (Benadryl) 50 mg STAT STAT IM 05/26/20 01:04 05/26/20 01:06 DC 05/26/20 01:22 Diphenhydramine HCl (Benadryl) 50 mg STAT STAT PO 05/26/20 19:38 05/26/20 19:44 DC 05/26/20 19:48 Divalproex Sodium (Depakote Er) 250 mg BID PO 05/30/20 09:00 06/02/20 11:31 DC 06/01/20 11:46 Divalproex Sodium (Depakote Er) 500 mg BID PO 06/02/20 21:00 07/07/20 09:46 Haloperidol (Haldol) 10 mg STAT STAT IM 05/26/20 01:04 05/26/20 01:06 DC 05/26/20 01:22 Haloperidol (Haldol) 10 mg STAT STAT IM 05/27/20 01:23 05/27/20 01:25 DC 05/27/20 01:28 Haloperidol (Haldol) 10 mg STAT STAT PO 05/26/20 19:38 05/26/20 19:44 DC 05/26/20 19:48 Home Med (Med Rec Complete!) ASDIRECTED XX 05/25/20 16:15 05/25/20 16:17 DC Influenza Virus Vaccine (Flublok Quad(Egg-Free)18y&Older Influenza) 0.5 ml ASDIRECTED IM 06/01/20 11:30 07/02/20 10:41 Lorazepam (Ativan) 2 mg STAT STAT IM 05/26/20 01:04 05/26/20 01:06 DC 05/26/20 01:23 Lorazepam (Ativan) 2 mg STAT STAT PO 05/26/20 19:38 05/26/20 19:44 DC 05/26/20 19:47 Magnesium Hydroxide (Milk Of Magnesia) 30 ml DAILYPRN PRN PO CONSTIPATION 05/25/20 17:45 07/06/20 19:50 Olanzapine (ZyPREXA ZYDIS) 10 mg BID PO 05/30/20 09:00 06/02/20 11:31 DC 06/01/20 11:46 Olanzapine (ZyPREXA ZYDIS) 10 mg BID PO 06/08/20 21:00 07/07/20 09:44 Olanzapine (ZyPREXA ZYDIS) 10 mg Q4HP PRN PO ANXIETY/AGITATION 05/25/20 17:45 07/03/20 04:33 Olanzapine (ZyPREXA ZYDIS) 15 mg BID PO 06/02/20 21:00 06/02/20 12:08 DC Olanzapine (Zyprexa Intramuscular) 5 mg BID IM 06/29/20 09:00 Olanzapine (Zyprexa Intramuscular) 5 mg BID IM 06/29/20 11:47 06/29/20 11:48 DC Olanzapine (Zyprexa Intramuscular) 5 mg BID PRN IM IF REFUSING ORAL, SEE TOO 06/29/20 09:00 06/29/20 11:47 DC Olanzapine (Zyprexa Intramuscular) 5 mg BID PRN IM IF REFUSING ORAL, SEE TOO 06/29/20 21:00 06/29/20 11:42 DC Oxymetazoline HCl (Afrin) 2 spray DAILYPRN PRN NA congestion 06/23/20 13:45 Pneumococcal Polyvalent Vaccine (Prevnar 13) 0.5 ml ASDIRECTED IM 06/01/20 11:30 07/02/20 10:40 Trazodone HCl (Desyrel) 50 mg QHSP PRN PO INSOMNIA 05/25/20 17:45 05/27/20 22:39 Allergies Coded Allergies: No Known Allergies (Verified , 10/30/03) OLY WU DO Jul 07, 2020 10:32
--- NOTE | 2020-07-07 16:02 | MHIPN ---
DATE: 07/06/2020 NOTE: The patient refused to see me today and so I could not do an evaluation. MTDD
[2020-07-07 19:16] VITALS: BP 130/70
[2020-07-08] MEDS: ACETAMINOPHEN TAB 650MG DOSE (2X325MG) PO PRN (01:30)
--- NOTE | 2020-07-08 08:19 | ECGEPIP ---
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
[2020-07-08] MEDS: OLANZapine INTRAMUSCULAR 10MG VIAL IM SCH ×2 (09:00→21:00)
[2020-07-08] MEDS: OLANZapine ORAL DISINTEGRATING TAB 5MG PO SCH ×2 (09:42→21:08)
[2020-07-08] MEDS: DIVALPROEX 500MG *ER* TAB PO SCH ×2 (09:42→21:08)
--- NOTE | 2020-07-08 12:32 | MHIPNPDOC ---
[facility] Progress Note Progress Note DATE OF SERVICE: 07/08/20 Subjective HPI: The patient is attempted be met with, however she is still quite distorted yelling that she wants to go home, she is unable to engage in a reasonable interview today Objective General: poor Speech: rapid Thought processes: tangential Thought content: psychotic delusions Abstract reasoning, and computation: impaired Description of associations: imparied Description of abnormal or psychotic thoughts:Unclear, appears to have psychotic processes going on. Judgment: poor Insight: poor Orientation: Alert and orientated 3 Recent and remote memory: Intact Attention span and concentration: impaired secondary to thought process Fund of knowledge: unable to determine Mood: "Dr. Echeverria" Affect: flat, little reactivity Assessment schizoaffective disorder Plan , Continue medications as current, will do pursue transfer to [place] Vital Signs Vital Signs Date Time Temp Pulse Resp B/P (MAP) Pulse Ox O2 Delivery O2 Flow Rate FiO2 07/07/20 19:16 97.5 103 20 130/70 (90) 07/07/20 07:24 97 Room Air Current Medications Current Medications Medications (Trade) Dose Ordered Sig/Holly Route PRN Reason Start Time Stop Time Status Last Admin Dose Admin Acetaminophen (Tylenol Tab) 650 mg Q6HP PRN PO HEADACHE or DISCOMFORT 05/25/20 17:45 07/08/20 01:30 Al Hydrox/Mg Hydrox/Simethicone (Mylanta) 30 ml Q4HP PRN PO HEARTBURN/INDIGESTION 05/25/20 17:45 Benztropine Mesylate (Cogentin) 0.5 mg DAILY PRN PO eps 05/30/20 11:15 Cariprazine (Vraylar) 1.5 mg DAILY PO 06/03/20 09:00 06/08/20 11:54 DC Diphenhydramine HCl (Benadryl) 50 mg STAT STAT IM 05/26/20 01:04 05/26/20 01:06 DC 05/26/20 01:22 Diphenhydramine HCl (Benadryl) 50 mg STAT STAT PO 05/26/20 19:38 05/26/20 19:44 DC 05/26/20 19:48 Divalproex Sodium (Depakote Er) 250 mg BID PO 05/30/20 09:00 06/02/20 11:31 DC 06/01/20 11:46 Divalproex Sodium (Depakote Er) 500 mg BID PO 06/02/20 21:00 07/08/20 09:42 Haloperidol (Haldol) 10 mg STAT STAT IM 05/26/20 01:04 05/26/20 01:06 DC 05/26/20 01:22 Haloperidol (Haldol) 10 mg STAT STAT IM 05/27/20 01:23 05/27/20 01:25 DC 05/27/20 01:28 Haloperidol (Haldol) 10 mg STAT STAT PO 05/26/20 19:38 05/26/20 19:44 DC 05/26/20 19:48 Home Med (Med Rec Complete!) ASDIRECTED XX 05/25/20 16:15 05/25/20 16:17 DC Influenza Virus Vaccine (Flublok Quad(Egg-Free)18y&Older Influenza) 0.5 ml ASDIRECTED IM 06/01/20 11:30 07/02/20 10:41 Lorazepam (Ativan) 2 mg STAT STAT IM 05/26/20 01:04 05/26/20 01:06 DC 05/26/20 01:23 Lorazepam (Ativan) 2 mg STAT STAT PO 05/26/20 19:38 05/26/20 19:44 DC 05/26/20 19:47 Magnesium Hydroxide (Milk Of Magnesia) 30 ml DAILYPRN PRN PO CONSTIPATION 05/25/20 17:45 07/06/20 19:50 Olanzapine (ZyPREXA ZYDIS) 10 mg BID PO 05/30/20 09:00 06/02/20 11:31 DC 06/01/20 11:46 Olanzapine (ZyPREXA ZYDIS) 10 mg BID PO 06/08/20 21:00 07/07/20 12:42 DC 07/07/20 09:44 Olanzapine (ZyPREXA ZYDIS) 10 mg Q4HP PRN PO ANXIETY/AGITATION 05/25/20 17:45 07/03/20 04:33 Olanzapine (ZyPREXA ZYDIS) 15 mg BID PO 06/02/20 21:00 06/02/20 12:08 DC Olanzapine (ZyPREXA ZYDIS) 15 mg BID PO 07/07/20 21:00 10/23/20 09:42 Olanzapine (Zyprexa Intramuscular) 5 mg BID IM 06/29/20 09:00 Olanzapine (Zyprexa Intramuscular) 5 mg BID IM 06/29/20 11:47 06/29/20 11:48 DC Olanzapine (Zyprexa Intramuscular) 5 mg BID PRN IM IF REFUSING ORAL, SEE TOO 06/29/20 09:00 06/29/20 11:47 DC Olanzapine (Zyprexa Intramuscular) 5 mg BID PRN IM IF REFUSING ORAL, SEE TOO 06/29/20 21:00 06/29/20 11:42 DC Oxymetazoline HCl (Afrin) 2 spray DAILYPRN PRN NA congestion 06/23/20 13:45 Pneumococcal Polyvalent Vaccine (Prevnar 13) 0.5 ml ASDIRECTED IM 06/01/20 11:30 07/02/20 10:40 Trazodone HCl (Desyrel) 50 mg QHSP PRN PO INSOMNIA 05/25/20 17:45 05/27/20 22:39 Allergies Coded Allergies: No Known Allergies (Verified , 10/30/03) OLY WU DO Jul 08, 2020 12:32
[2020-07-09] MEDS: OLANZapine INTRAMUSCULAR 10MG VIAL IM SCH ×2 (09:00→21:00)
[2020-07-09] MEDS: OLANZapine ORAL DISINTEGRATING TAB 5MG PO SCH ×2 (09:09→21:00)
[2020-07-09] MEDS: DIVALPROEX 500MG *ER* TAB PO SCH ×2 (09:09→21:57)
[2020-07-09] MEDS: OLANZapine ORAL DISINTEGRATING TAB 5MG PO PRN (13:36)
[2020-07-09] MEDS: ACETAMINOPHEN TAB 650MG DOSE (2X325MG) PO PRN (21:57)
[2020-07-10] MEDS: OLANZapine INTRAMUSCULAR 10MG VIAL IM SCH ×2 (09:00→21:00)
[2020-07-10] MEDS: OLANZapine ORAL DISINTEGRATING TAB 5MG PO SCH ×2 (10:21→21:52)
[2020-07-10] MEDS: DIVALPROEX 500MG *ER* TAB PO SCH ×2 (10:22→21:51)
[2020-07-10 18:46] VITALS: BP 152/101
[2020-07-10] MEDS: traZODone 50 MG TAB PO PRN (21:51)
[2020-07-10] MEDS: ACETAMINOPHEN TAB 650MG DOSE (2X325MG) PO PRN (21:51)
[2020-07-11] MEDS: OLANZapine INTRAMUSCULAR 10MG VIAL IM SCH ×2 (09:00→22:33)
[2020-07-11] MEDS: DIVALPROEX 500MG *ER* TAB PO SCH ×3 (09:49→22:35)
[2020-07-11] MEDS: OLANZapine ORAL DISINTEGRATING TAB 5MG PO SCH ×3 (09:49→22:14)
--- NOTE | 2020-07-11 09:50 | MHIPNPDOC ---
[facility] Progress Note Progress Note DATE OF SERVICE: 07/11/20 Subjective HPI: Samira presents today for a follow-up. The patient's met with multiple times throughout the day. She still is quite fixated and still wants to go home. However, she's more linear, smiles more and is less loud and intrusive. She has been taking the Zyprexa and reports that it has been helpful. However, she still has quite paranoid thoughts that certain people are out to get her and that she's in danger in the hospital. Objective Speech: More linear. Spontaneous and Fluid. Normal volume. Normal rate. Cognition: Alert, Orientated, difficult to ascertain if shes fully aware of her surroundings, but knows that shes in a hospital. Judgement: Poor. Insight: Poor. Assessment F25.9 Schizoaffective disorder, unspecified Plan Continue Olanzapine 15 mg BID, and Depakote 500 mg BID Vital Signs Vital Signs Date Time Temp Pulse Resp B/P (MAP) Pulse Ox O2 Delivery O2 Flow Rate FiO2 07/10/20 18:46 98.0 114 18 152/101 (118) 97 Room Air Current Medications Current Medications Medications (Trade) Dose Ordered Sig/Holly Route PRN Reason Start Time Stop Time Status Last Admin Dose Admin Acetaminophen (Tylenol Tab) 650 mg Q6HP PRN PO HEADACHE or DISCOMFORT 05/25/20 17:45 07/10/20 21:51 Al Hydrox/Mg Hydrox/Simethicone (Mylanta) 30 ml Q4HP PRN PO HEARTBURN/INDIGESTION 05/25/20 17:45 Benztropine Mesylate (Cogentin) 0.5 mg DAILY PRN PO eps 05/30/20 11:15 Cariprazine (Vraylar) 1.5 mg DAILY PO 06/03/20 09:00 06/08/20 11:54 DC Diphenhydramine HCl (Benadryl) 50 mg STAT STAT IM 05/26/20 01:04 05/26/20 01:06 DC 05/26/20 01:22 Diphenhydramine HCl (Benadryl) 50 mg STAT STAT PO 05/26/20 19:38 05/26/20 19:44 DC 05/26/20 19:48 Divalproex Sodium (Depakote Er) 250 mg BID PO 05/30/20 09:00 06/02/20 11:31 DC 06/01/20 11:46 Divalproex Sodium (Depakote Er) 500 mg BID PO 06/02/20 21:00 07/10/20 21:51 Haloperidol (Haldol) 10 mg STAT STAT IM 05/26/20 01:04 05/26/20 01:06 DC 05/26/20 01:22 Haloperidol (Haldol) 10 mg STAT STAT IM 05/27/20 01:23 05/27/20 01:25 DC 05/27/20 01:28 Haloperidol (Haldol) 10 mg STAT STAT PO 05/26/20 19:38 05/26/20 19:44 DC 05/26/20 19:48 Home Med (Med Rec Complete!) ASDIRECTED XX 05/25/20 16:15 05/25/20 16:17 DC Influenza Virus Vaccine (Flublok Quad(Egg-Free)18y&Older Influenza) 0.5 ml ASDIRECTED IM 06/01/20 11:30 07/11/20 07:46 DC 07/02/20 10:41 Lorazepam (Ativan) 2 mg STAT STAT IM 05/26/20 01:04 05/26/20 01:06 DC 05/26/20 01:23 Lorazepam (Ativan) 2 mg STAT STAT PO 05/26/20 19:38 05/26/20 19:44 DC 05/26/20 19:47 Magnesium Hydroxide (Milk Of Magnesia) 30 ml DAILYPRN PRN PO CONSTIPATION 05/25/20 17:45 07/06/20 19:50 Olanzapine (ZyPREXA ZYDIS) 10 mg BID PO 05/30/20 09:00 06/02/20 11:31 DC 06/01/20 11:46 Olanzapine (ZyPREXA ZYDIS) 10 mg BID PO 06/08/20 21:00 07/07/20 12:42 DC 07/07/20 09:44 Olanzapine (ZyPREXA ZYDIS) 10 mg Q4HP PRN PO ANXIETY/AGITATION 05/25/20 17:45 07/09/20 13:36 Olanzapine (ZyPREXA ZYDIS) 15 mg BID PO 06/02/20 21:00 06/02/20 12:08 DC Olanzapine (ZyPREXA ZYDIS) 15 mg BID PO 07/07/20 21:00 07/10/20 21:52 Olanzapine (Zyprexa Intramuscular) 5 mg BID IM 06/29/20 09:00 Olanzapine (Zyprexa Intramuscular) 5 mg BID IM 06/29/20 11:47 06/29/20 11:48 DC Olanzapine (Zyprexa Intramuscular) 5 mg BID PRN IM IF REFUSING ORAL, SEE TOO 06/29/20 09:00 06/29/20 11:47 DC Olanzapine (Zyprexa Intramuscular) 5 mg BID PRN IM IF REFUSING ORAL, SEE TOO 06/29/20 21:00 06/29/20 11:42 DC Oxymetazoline HCl (Afrin) 2 spray DAILYPRN PRN NA congestion 06/23/20 13:45 Pneumococcal Polyvalent Vaccine (Prevnar 13) 0.5 ml ASDIRECTED IM 06/01/20 11:30 07/11/20 07:46 DC 07/02/20 10:40 Trazodone HCl (Desyrel) 50 mg QHSP PRN PO INSOMNIA 05/25/20 17:45 07/10/20 21:51 Allergies Coded Allergies: No Known Allergies (Verified , 10/30/03) OLY WU DO Jul 11, 2020 09:49
[2020-07-11 16:58] VITALS: BP_SYST 131; BP_SYST 138; BP_DIAS 76; BP_DIAS 80
[2020-07-11] MEDS: ACETAMINOPHEN TAB 650MG DOSE (2X325MG) PO PRN (19:44)
[2020-07-12] MEDS: DIVALPROEX 500MG *ER* TAB PO SCH ×3 (09:00→21:48)
[2020-07-12] MEDS: OLANZapine INTRAMUSCULAR 10MG VIAL IM SCH ×2 (09:00→21:00)
[2020-07-12] MEDS: OLANZapine ORAL DISINTEGRATING TAB 5MG PO SCH ×2 (09:42→21:48)
--- NOTE | 2020-07-12 13:31 | MHIPNPDOC ---
[facility] Progress Note Progress Note DATE OF SERVICE: 07/12/20 Subjective HPI: Samira presents today for a follow up exam. She is still yelling in her room at times, but has made some improvements with more similing and better ability to engage with others. She reports the medicine is helpful but then the rest of the conversation is related to the "covenant" . MEDICATIONS: She continues to report that she is still incoherent at times, but relays that she feels the medicine is helpful. Objective Speech: Loud. Normal rate. Spontaneous and Fluid. Cognition: Somewhat improved in terms of understandability. Thought Form: Tangential. Thought Content: Delusional and paranoid. Judgement: Disorganized. Insight: Disorganized. Assessment F25.9 Schizoaffective disorder, unspecified Plan Continue Zyprexa 15 mg BID. Will continue to monitor. Potentially may not need long-term [place] Vital Signs Vital Signs Date Time Temp Pulse Resp B/P (MAP) Pulse Ox O2 Delivery O2 Flow Rate FiO2 07/12/20 10:37 Room Air 07/11/20 16:58 97.8 88 18 138/76 (96) 07/10/20 18:46 97 Current Medications Current Medications Medications (Trade) Dose Ordered Sig/Holly Route PRN Reason Start Time Stop Time Status Last Admin Dose Admin Acetaminophen (Tylenol Tab) 650 mg Q6HP PRN PO HEADACHE or DISCOMFORT 05/25/20 17:45 07/11/20 19:44 Al Hydrox/Mg Hydrox/Simethicone (Mylanta) 30 ml Q4HP PRN PO HEARTBURN/INDIGESTION 05/25/20 17:45 Benztropine Mesylate (Cogentin) 0.5 mg DAILY PRN PO eps 05/30/20 11:15 Cariprazine (Vraylar) 1.5 mg DAILY PO 06/03/20 09:00 06/08/20 11:54 DC Diphenhydramine HCl (Benadryl) 50 mg STAT STAT IM 05/26/20 01:04 05/26/20 01:06 DC 05/26/20 01:22 Diphenhydramine HCl (Benadryl) 50 mg STAT STAT PO 05/26/20 19:38 05/26/20 19:44 DC 05/26/20 19:48 Divalproex Sodium (Depakote Er) 250 mg BID PO 05/30/20 09:00 06/02/20 11:31 DC 06/01/20 11:46 Divalproex Sodium (Depakote Er) 500 mg BID PO 06/02/20 21:00 07/11/20 22:15 Haloperidol (Haldol) 10 mg STAT STAT IM 05/26/20 01:04 05/26/20 01:06 DC 05/26/20 01:22 Haloperidol (Haldol) 10 mg STAT STAT IM 05/27/20 01:23 05/27/20 01:25 DC 05/27/20 01:28 Haloperidol (Haldol) 10 mg STAT STAT PO 05/26/20 19:38 05/26/20 19:44 DC 05/26/20 19:48 Home Med (Med Rec Complete!) ASDIRECTED XX 05/25/20 16:15 05/25/20 16:17 DC Influenza Virus Vaccine (Flublok Quad(Egg-Free)18y&Older Influenza) 0.5 ml ASDIRECTED IM 06/01/20 11:30 07/11/20 07:46 DC 07/02/20 10:41 Lorazepam (Ativan) 2 mg STAT STAT IM 05/26/20 01:04 05/26/20 01:06 DC 05/26/20 01:23 Lorazepam (Ativan) 2 mg STAT STAT PO 05/26/20 19:38 05/26/20 19:44 DC 05/26/20 19:47 Magnesium Hydroxide (Milk Of Magnesia) 30 ml DAILYPRN PRN PO CONSTIPATION 05/25/20 17:45 07/06/20 19:50 Olanzapine (ZyPREXA ZYDIS) 10 mg BID PO 05/30/20 09:00 06/02/20 11:31 DC 06/01/20 11:46 Olanzapine (ZyPREXA ZYDIS) 10 mg BID PO 06/08/20 21:00 07/07/20 12:42 DC 07/07/20 09:44 Olanzapine (ZyPREXA ZYDIS) 10 mg Q4HP PRN PO ANXIETY/AGITATION 05/25/20 17:45 07/11/20 15:32 DC 07/09/20 13:36 Olanzapine (ZyPREXA ZYDIS) 15 mg BID PO 06/02/20 21:00 06/02/20 12:08 DC Olanzapine (ZyPREXA ZYDIS) 15 mg BID PO 07/07/20 21:00 07/12/20 09:42 Olanzapine (Zyprexa Intramuscular) 5 mg BID IM 06/29/20 09:00 07/11/20 22:33 Olanzapine (Zyprexa Intramuscular) 5 mg BID IM 06/29/20 11:47 06/29/20 11:48 DC Olanzapine (Zyprexa Intramuscular) 5 mg BID PRN IM IF REFUSING ORAL, SEE TOO 06/29/20 09:00 06/29/20 11:47 DC Olanzapine (Zyprexa Intramuscular) 5 mg BID PRN IM IF REFUSING ORAL, SEE TOO 06/29/20 21:00 06/29/20 11:42 DC Oxymetazoline HCl (Afrin) 2 spray DAILYPRN PRN NA congestion 06/23/20 13:45 Pneumococcal Polyvalent Vaccine (Prevnar 13) 0.5 ml ASDIRECTED IM 06/01/20 11:30 07/11/20 07:46 DC 07/02/20 10:40 Trazodone HCl (Desyrel) 50 mg QHSP PRN PO INSOMNIA 05/25/20 17:45 07/10/20 21:51 Allergies Coded Allergies: No Known Allergies (Verified , 10/30/03) OLY WU DO Jul 12, 2020 13:31
[2020-07-13] MEDS: OLANZapine INTRAMUSCULAR 10MG VIAL IM SCH ×2 (09:00→21:00)
[2020-07-13] MEDS: DIVALPROEX 500MG *ER* TAB PO SCH ×2 (09:00→20:53)
[2020-07-13] MEDS: OLANZapine ORAL DISINTEGRATING TAB 5MG PO SCH ×2 (09:58→20:49)
--- NOTE | 2020-07-13 10:25 | MHIPNPDOC ---
[facility] Progress Note Progress Note DATE OF SERVICE: 07/13/20 Subjective HPI: Parvin presents today for a mental health examine. Patient has been met with multiple times throughout the day, and she has been notably more amenable. She still screams later in the day, but is having slightly more coherent conversations. Patient states she is still distressed by her current experience. MEDICATIONS: She continues to report that she is still incoherent at times, but relays that she feels the medicine is helpful. Objective Speech: Loud. Normal rate. Spontaneous and Fluid. Cognition: Somewhat improved in terms of understandability. Thought Form: Tangential. Thought Content: Delusional and paranoid. Judgement: Disorganized. Insight: Disorganized. Assessment F25.9 Schizoaffective disorder, unspecified Plan Continue Zyprexa 15 mg BID. EKG shows no appreciable change in QTC. Continue Depakote 500 mg BID, which she has been continuously on 500 mg BID as would be needed for schizoaffective disorder. Will continue to monitor. Potentially may not need long-term [place]. However, her progress is slow. Vital Signs Vital Signs Date Time Temp Pulse Resp B/P (MAP) Pulse Ox O2 Delivery O2 Flow Rate FiO2 07/12/20 10:37 Room Air 07/11/20 16:58 97.8 88 18 138/76 (96) 07/10/20 18:46 97 Current Medications Current Medications Medications (Trade) Dose Ordered Sig/Holly Route PRN Reason Start Time Stop Time Status Last Admin Dose Admin Acetaminophen (Tylenol Tab) 650 mg Q6HP PRN PO HEADACHE or DISCOMFORT 05/25/20 17:45 07/11/20 19:44 Al Hydrox/Mg Hydrox/Simethicone (Mylanta) 30 ml Q4HP PRN PO HEARTBURN/INDIGESTION 05/25/20 17:45 Benztropine Mesylate (Cogentin) 0.5 mg DAILY PRN PO eps 05/30/20 11:15 Cariprazine (Vraylar) 1.5 mg DAILY PO 06/03/20 09:00 06/08/20 11:54 DC Diphenhydramine HCl (Benadryl) 50 mg STAT STAT IM 05/26/20 01:04 05/26/20 01:06 DC 05/26/20 01:22 Diphenhydramine HCl (Benadryl) 50 mg STAT STAT PO 05/26/20 19:38 05/26/20 19:44 DC 05/26/20 19:48 Divalproex Sodium (Depakote Er) 250 mg BID PO 05/30/20 09:00 06/02/20 11:31 DC 06/01/20 11:46 Divalproex Sodium (Depakote Er) 500 mg BID PO 06/02/20 21:00 07/11/20 22:15 Haloperidol (Haldol) 10 mg STAT STAT IM 05/26/20 01:04 05/26/20 01:06 DC 05/26/20 01:22 Haloperidol (Haldol) 10 mg STAT STAT IM 05/27/20 01:23 05/27/20 01:25 DC 05/27/20 01:28 Haloperidol (Haldol) 10 mg STAT STAT PO 05/26/20 19:38 05/26/20 19:44 DC 05/26/20 19:48 Home Med (Med Rec Complete!) ASDIRECTED XX 05/25/20 16:15 05/25/20 16:17 DC Influenza Virus Vaccine (Flublok Quad(Egg-Free)18y&Older Influenza) 0.5 ml ASDIRECTED IM 06/01/20 11:30 07/11/20 07:46 DC 07/02/20 10:41 Lorazepam (Ativan) 2 mg STAT STAT IM 05/26/20 01:04 05/26/20 01:06 DC 05/26/20 01:23 Lorazepam (Ativan) 2 mg STAT STAT PO 05/26/20 19:38 05/26/20 19:44 DC 05/26/20 19:47 Magnesium Hydroxide (Milk Of Magnesia) 30 ml DAILYPRN PRN PO CONSTIPATION 05/25/20 17:45 07/06/20 19:50 Olanzapine (ZyPREXA ZYDIS) 10 mg BID PO 05/30/20 09:00 06/02/20 11:31 DC 06/01/20 11:46 Olanzapine (ZyPREXA ZYDIS) 10 mg BID PO 06/08/20 21:00 07/07/20 12:42 DC 07/07/20 09:44 Olanzapine (ZyPREXA ZYDIS) 10 mg Q4HP PRN PO ANXIETY/AGITATION 05/25/20 17:45 07/11/20 15:32 DC 07/09/20 13:36 Olanzapine (ZyPREXA ZYDIS) 15 mg BID PO 06/02/20 21:00 06/02/20 12:08 DC Olanzapine (ZyPREXA ZYDIS) 15 mg BID PO 07/07/20 21:00 07/13/20 09:58 Olanzapine (Zyprexa Intramuscular) 5 mg BID IM 06/29/20 09:00 07/11/20 22:33 Olanzapine (Zyprexa Intramuscular) 5 mg BID IM 06/29/20 11:47 06/29/20 11:48 DC Olanzapine (Zyprexa Intramuscular) 5 mg BID PRN IM IF REFUSING ORAL, SEE TOO 06/29/20 09:00 06/29/20 11:47 DC Olanzapine (Zyprexa Intramuscular) 5 mg BID PRN IM IF REFUSING ORAL, SEE TOO 06/29/20 21:00 06/29/20 11:42 DC Oxymetazoline HCl (Afrin) 2 spray DAILYPRN PRN NA congestion 06/23/20 13:45 Pneumococcal Polyvalent Vaccine (Prevnar 13) 0.5 ml ASDIRECTED IM 06/01/20 11:30 07/11/20 07:46 DC 07/02/20 10:40 Trazodone HCl (Desyrel) 50 mg QHSP PRN PO INSOMNIA 05/25/20 17:45 07/10/20 21:51 Allergies Coded Allergies: No Known Allergies (Verified , 10/30/03) OLY WU DO Jul 13, 2020 10:25
[2020-07-13] MEDS: MAALOX 30 ML SUSP *UDC PO PRN (19:58)
[2020-07-14] MEDS: OLANZapine ORAL DISINTEGRATING TAB 5MG PO SCH ×2 (08:21→21:11)
[2020-07-14] MEDS: DIVALPROEX 500MG *ER* TAB PO SCH ×2 (08:21→21:10)
[2020-07-14] MEDS: OLANZapine INTRAMUSCULAR 10MG VIAL IM SCH ×2 (08:46→21:00)
--- NOTE | 2020-07-14 11:18 | MHIPNPDOC ---
[facility] Progress Note Progress Note DATE OF SERVICE: 07/14/20 Subjective HPI: Patient has been met with multiple times throughout the day where she reports that she is feeling better on the medication but feels sad about not going home. She then does go into various diatribes about her concerns about the covenant and other paranoid ideation, although she is notably having less time screaming and notably more engaged. Objective Appearance: hygiene fair. Behavior: rambling and psychotic. loose associations. Affect: more linear to mild degree. Judgement: poor judgement. Insight: poor insight. Assessment F25.9 Schizoaffective disorder, unspecified Plan She does appear to be making some slow progress, but whether she can successfully live as an outpatient at this time, I dont believe so due to her screaming episodes and heavy psychotic symptoms. Will continue to pursue [place]. However, she is still quite disorganized. Continue Zyprexa 15 mg PID and Depakote 500 mg BIP. Order labs to determine Depakote levels. Vital Signs Vital Signs Date Time Temp Pulse Resp B/P (MAP) Pulse Ox O2 Delivery O2 Flow Rate FiO2 07/13/20 12:52 Room Air 07/11/20 16:58 97.8 88 18 138/76 (96) 07/10/20 18:46 97 Current Medications Current Medications Medications (Trade) Dose Ordered Sig/Holly Route PRN Reason Start Time Stop Time Status Last Admin Dose Admin Acetaminophen (Tylenol Tab) 650 mg Q6HP PRN PO HEADACHE or DISCOMFORT 05/25/20 17:45 07/11/20 19:44 Al Hydrox/Mg Hydrox/Simethicone (Mylanta) 30 ml Q4HP PRN PO HEARTBURN/INDIGESTION 05/25/20 17:45 07/13/20 19:58 Benztropine Mesylate (Cogentin) 0.5 mg DAILY PRN PO eps 05/30/20 11:15 Cariprazine (Vraylar) 1.5 mg DAILY PO 06/03/20 09:00 06/08/20 11:54 DC Diphenhydramine HCl (Benadryl) 50 mg STAT STAT IM 05/26/20 01:04 05/26/20 01:06 DC 05/26/20 01:22 Diphenhydramine HCl (Benadryl) 50 mg STAT STAT PO 05/26/20 19:38 05/26/20 19:44 DC 05/26/20 19:48 Divalproex Sodium (Depakote Er) 250 mg BID PO 05/30/20 09:00 06/02/20 11:31 DC 06/01/20 11:46 Divalproex Sodium (Depakote Er) 500 mg BID PO 06/02/20 21:00 07/14/20 08:21 Haloperidol (Haldol) 10 mg STAT STAT IM 05/26/20 01:04 05/26/20 01:06 DC 05/26/20 01:22 Haloperidol (Haldol) 10 mg STAT STAT IM 05/27/20 01:23 05/27/20 01:25 DC 05/27/20 01:28 Haloperidol (Haldol) 10 mg STAT STAT PO 05/26/20 19:38 05/26/20 19:44 DC 05/26/20 19:48 Home Med (Med Rec Complete!) ASDIRECTED XX 05/25/20 16:15 05/25/20 16:17 DC Influenza Virus Vaccine (Flublok Quad(Egg-Free)18y&Older Influenza) 0.5 ml ASDIRECTED IM 06/01/20 11:30 07/11/20 07:46 DC 07/02/20 10:41 Lorazepam (Ativan) 2 mg STAT STAT IM 05/26/20 01:04 05/26/20 01:06 DC 05/26/20 01:23 Lorazepam (Ativan) 2 mg STAT STAT PO 05/26/20 19:38 05/26/20 19:44 DC 05/26/20 19:47 Magnesium Hydroxide (Milk Of Magnesia) 30 ml DAILYPRN PRN PO CONSTIPATION 05/25/20 17:45 07/06/20 19:50 Olanzapine (ZyPREXA ZYDIS) 10 mg BID PO 05/30/20 09:00 06/02/20 11:31 DC 06/01/20 11:46 Olanzapine (ZyPREXA ZYDIS) 10 mg BID PO 06/08/20 21:00 07/07/20 12:42 DC 07/07/20 09:44 Olanzapine (ZyPREXA ZYDIS) 10 mg Q4HP PRN PO ANXIETY/AGITATION 05/25/20 17:45 10/26/20 15:32 DC 07/09/20 13:36 Olanzapine (ZyPREXA ZYDIS) 15 mg BID PO 06/02/20 21:00 06/02/20 12:08 DC Olanzapine (ZyPREXA ZYDIS) 15 mg BID PO 07/07/20 21:00 07/14/20 08:21 Olanzapine (Zyprexa Intramuscular) 5 mg BID IM 06/29/20 09:00 07/11/20 22:33 Olanzapine (Zyprexa Intramuscular) 5 mg BID IM 06/29/20 11:47 06/29/20 11:48 DC Olanzapine (Zyprexa Intramuscular) 5 mg BID PRN IM IF REFUSING ORAL, SEE TOO 06/29/20 09:00 06/29/20 11:47 DC Olanzapine (Zyprexa Intramuscular) 5 mg BID PRN IM IF REFUSING ORAL, SEE TOO 06/29/20 21:00 06/29/20 11:42 DC Oxymetazoline HCl (Afrin) 2 spray DAILYPRN PRN NA congestion 06/23/20 13:45 Pneumococcal Polyvalent Vaccine (Prevnar 13) 0.5 ml ASDIRECTED IM 06/01/20 11:30 07/11/20 07:46 DC 07/02/20 10:40 Trazodone HCl (Desyrel) 50 mg QHSP PRN PO INSOMNIA 05/25/20 17:45 07/10/20 21:51 Allergies Coded Allergies: No Known Allergies (Verified , 10/30/03) OLY WU DO Jul 14, 2020 11:18
[2020-07-14 16:52] VITALS: BP 151/86
[2020-07-15] MEDS: DIVALPROEX 500MG *ER* TAB PO SCH ×2 (08:03→20:27)
[2020-07-15] MEDS: OLANZapine ORAL DISINTEGRATING TAB 5MG PO SCH ×2 (08:04→20:27)
[2020-07-15] MEDS: OLANZapine INTRAMUSCULAR 10MG VIAL IM SCH ×2 (08:05→20:29)
--- NOTE | 2020-07-15 11:06 | MHIPNPDOC ---
[facility] Progress Note Progress Note DATE OF SERVICE: 07/15/20 Subjective HPI/Interval Hx: The patient is met with today, she is somewhat more organized but reports being significant a distressed by feelings of people are cursing her and that she is a white witch, she reports that she worries that she will continue to be attacked. She's paranoid about others on the unit. Objective General: poor Speech: rapid Thought processes: tangential Thought content: psychotic delusions Abstract reasoning, and computation: impaired Description of associations: imparied Description of abnormal or psychotic thoughts:Unclear, appears to have psychotic processes going on. Judgment: poor Insight: poor Orientation: Alert and orientated 3 Recent and remote memory: Intact Attention span and concentration: impaired secondary to thought process Fund of knowledge: unable to determine Mood: "they know I'm here" Affect: labile Assessment schizoaffective disorder Plan continue Zyprexa 15 mg BID as well as Depakote 500 mg BID, will draw valproic acid level Vital Signs Vital Signs Date Time Temp Pulse Resp B/P (MAP) Pulse Ox O2 Delivery O2 Flow Rate FiO2 07/14/20 16:52 98.3 90 20 151/86 (107) 96 Room Air Current Medications Current Medications Medications (Trade) Dose Ordered Sig/Holly Route PRN Reason Start Time Stop Time Status Last Admin Dose Admin Acetaminophen (Tylenol Tab) 650 mg Q6HP PRN PO HEADACHE or DISCOMFORT 05/25/20 17:45 07/11/20 19:44 Al Hydrox/Mg Hydrox/Simethicone (Mylanta) 30 ml Q4HP PRN PO HEARTBURN/INDIGESTION 05/25/20 17:45 07/13/20 19:58 Benztropine Mesylate (Cogentin) 0.5 mg DAILY PRN PO eps 05/30/20 11:15 Cariprazine (Vraylar) 1.5 mg DAILY PO 06/03/20 09:00 06/08/20 11:54 DC Diphenhydramine HCl (Benadryl) 50 mg STAT STAT IM 05/26/20 01:04 05/26/20 01:06 DC 05/26/20 01:22 Diphenhydramine HCl (Benadryl) 50 mg STAT STAT PO 05/26/20 19:38 05/26/20 19:44 DC 05/26/20 19:48 Divalproex Sodium (Depakote Er) 250 mg BID PO 05/30/20 09:00 06/02/20 11:31 DC 06/01/20 11:46 Divalproex Sodium (Depakote Er) 500 mg BID PO 06/02/20 21:00 07/15/20 08:03 Haloperidol (Haldol) 10 mg STAT STAT IM 05/26/20 01:04 05/26/20 01:06 DC 05/26/20 01:22 Haloperidol (Haldol) 10 mg STAT STAT IM 05/27/20 01:23 05/27/20 01:25 DC 05/27/20 01:28 Haloperidol (Haldol) 10 mg STAT STAT PO 05/26/20 19:38 05/26/20 19:44 DC 05/26/20 19:48 Home Med (Med Rec Complete!) ASDIRECTED XX 05/25/20 16:15 05/25/20 16:17 DC Influenza Virus Vaccine (Flublok Quad(Egg-Free)18y&Older Influenza) 0.5 ml ASDIRECTED IM 06/01/20 11:30 07/11/20 07:46 DC 07/02/20 10:41 Lorazepam (Ativan) 2 mg STAT STAT IM 05/26/20 01:04 05/26/20 01:06 DC 05/26/20 01:23 Lorazepam (Ativan) 2 mg STAT STAT PO 05/26/20 19:38 05/26/20 19:44 DC 05/26/20 19:47 Magnesium Hydroxide (Milk Of Magnesia) 30 ml DAILYPRN PRN PO CONSTIPATION 05/25/20 17:45 07/06/20 19:50 Olanzapine (ZyPREXA ZYDIS) 10 mg BID PO 05/30/20 09:00 06/02/20 11:31 DC 06/01/20 11:46 Olanzapine (ZyPREXA ZYDIS) 10 mg BID PO 06/08/20 21:00 07/07/20 12:42 DC 07/07/20 09:44 Olanzapine (ZyPREXA ZYDIS) 10 mg Q4HP PRN PO ANXIETY/AGITATION 05/25/20 17:45 07/11/20 15:32 DC 07/09/20 13:36 Olanzapine (ZyPREXA ZYDIS) 15 mg BID PO 06/02/20 21:00 06/02/20 12:08 DC Olanzapine (ZyPREXA ZYDIS) 15 mg BID PO 07/07/20 21:00 07/15/20 08:04 Olanzapine (Zyprexa Intramuscular) 5 mg BID IM 06/29/20 09:00 07/11/20 22:33 Olanzapine (Zyprexa Intramuscular) 5 mg BID IM 06/29/20 11:47 06/29/20 11:48 DC Olanzapine (Zyprexa Intramuscular) 5 mg BID PRN IM IF REFUSING ORAL, SEE TOO 06/29/20 09:00 06/29/20 11:47 DC Olanzapine (Zyprexa Intramuscular) 5 mg BID PRN IM IF REFUSING ORAL, SEE TOO 06/29/20 21:00 06/29/20 11:42 DC Oxymetazoline HCl (Afrin) 2 spray DAILYPRN PRN NA congestion 06/23/20 13:45 Pneumococcal Polyvalent Vaccine (Prevnar 13) 0.5 ml ASDIRECTED IM 06/01/20 11:30 07/11/20 07:46 DC 07/02/20 10:40 Trazodone HCl (Desyrel) 50 mg QHSP PRN PO INSOMNIA 05/25/20 17:45 07/10/20 21:51 Allergies Coded Allergies: No Known Allergies (Verified , 10/30/03) OLY WU DO Jul 15, 2020 11:06
[2020-07-15 16:08] VITALS: BP 134/79
[2020-07-15] MEDS: traZODone 50 MG TAB PO PRN (23:15)
[2020-07-16] MEDS: OLANZapine INTRAMUSCULAR 10MG VIAL IM SCH ×2 (09:00→21:00)
[2020-07-16] MEDS: OLANZapine ORAL DISINTEGRATING TAB 5MG PO SCH ×2 (09:51→21:02)
[2020-07-16] MEDS: DIVALPROEX 500MG *ER* TAB PO SCH ×2 (09:52→21:02)
[2020-07-16 16:30] VITALS: BP 128/63
[2020-07-17 06:42] VITALS: BP 139/86
[2020-07-17] MEDS: OLANZapine INTRAMUSCULAR 10MG VIAL IM SCH ×2 (09:00→21:00)
[2020-07-17] MEDS: OLANZapine ORAL DISINTEGRATING TAB 5MG PO SCH ×2 (09:45→23:58)
[2020-07-17] MEDS: DIVALPROEX 500MG *ER* TAB PO SCH ×2 (09:45→23:58)
[2020-07-17 16:48] VITALS: BP 130/89
[2020-07-18] MEDS: OLANZapine INTRAMUSCULAR 10MG VIAL IM SCH ×2 (09:00→20:35)
[2020-07-18] MEDS: OLANZapine ORAL DISINTEGRATING TAB 5MG PO SCH ×2 (09:26→20:34)
[2020-07-18] MEDS: DIVALPROEX 500MG *ER* TAB PO SCH ×2 (09:26→20:33)
--- NOTE | 2020-07-18 10:16 | MHIPNPDOC ---
[facility] Progress Note Progress Note DATE OF SERVICE: 07/18/20 HPI: Samira presents today for being disorganized and tangential. Patient was met with throughout the day and scream the majority of the day. She reports of feeling better on the medication and wants to go home. Patient talks about various people coming after her. Objective Affect: Highly labile. Speech: Incomprehensible. Thought Form: Nonlinear. Tangential. Perception: Psychotic Associations. Judgement: Poor. Loose. Insight: Loose. Poor. Assessment F25.0 Schizoaffective disorder, bipolar type Plan Continue Zyprexa 15 mg BID and Depakote 500 mg BID; levels appear somewhat low, so consider increasing. Pursue retention on Saturday with transfer to [facility]. Vital Signs Vital Signs Date Time Temp Pulse Resp B/P (MAP) Pulse Ox O2 Delivery O2 Flow Rate FiO2 07/18/20 09:54 Room Air 07/17/20 16:48 98.3 89 18 130/89 (103) 07/17/20 06:42 95 Current Medications Current Medications Medications (Trade) Dose Ordered Sig/Holly Route PRN Reason Start Time Stop Time Status Last Admin Dose Admin Acetaminophen (Tylenol Tab) 650 mg Q6HP PRN PO HEADACHE or DISCOMFORT 05/25/20 17:45 07/11/20 19:44 Al Hydrox/Mg Hydrox/Simethicone (Mylanta) 30 ml Q4HP PRN PO HEARTBURN/INDIGESTION 05/25/20 17:45 07/13/20 19:58 Benztropine Mesylate (Cogentin) 0.5 mg DAILY PRN PO eps 05/30/20 11:15 Cariprazine (Vraylar) 1.5 mg DAILY PO 06/03/20 09:00 06/08/20 11:54 DC Diphenhydramine HCl (Benadryl) 50 mg STAT STAT IM 05/26/20 01:04 05/26/20 01:06 DC 05/26/20 01:22 Diphenhydramine HCl (Benadryl) 50 mg STAT STAT PO 05/26/20 19:38 05/26/20 19:44 DC 05/26/20 19:48 Divalproex Sodium (Depakote Er) 250 mg BID PO 05/30/20 09:00 06/02/20 11:31 DC 06/01/20 11:46 Divalproex Sodium (Depakote Er) 500 mg BID PO 06/02/20 21:00 07/18/20 09:26 Haloperidol (Haldol) 10 mg STAT STAT IM 05/26/20 01:04 05/26/20 01:06 DC 05/26/20 01:22 Haloperidol (Haldol) 10 mg STAT STAT IM 05/27/20 01:23 05/27/20 01:25 DC 05/27/20 01:28 Haloperidol (Haldol) 10 mg STAT STAT PO 05/26/20 19:38 05/26/20 19:44 DC 05/26/20 19:48 Home Med (Med Rec Complete!) ASDIRECTED XX 05/25/20 16:15 05/25/20 16:17 DC Influenza Virus Vaccine (Flublok Quad(Egg-Free)18y&Older Influenza) 0.5 ml ASDIRECTED IM 06/01/20 11:30 07/11/20 07:46 DC 07/02/20 10:41 Lorazepam (Ativan) 2 mg STAT STAT IM 05/26/20 01:04 05/26/20 01:06 DC 05/26/20 01:23 Lorazepam (Ativan) 2 mg STAT STAT PO 05/26/20 19:38 05/26/20 19:44 DC 05/26/20 19:47 Magnesium Hydroxide (Milk Of Magnesia) 30 ml DAILYPRN PRN PO CONSTIPATION 05/25/20 17:45 07/06/20 19:50 Olanzapine (ZyPREXA ZYDIS) 10 mg BID PO 05/30/20 09:00 06/02/20 11:31 DC 06/01/20 11:46 Olanzapine (ZyPREXA ZYDIS) 10 mg BID PO 06/08/20 21:00 07/07/20 12:42 DC 07/07/20 09:44 Olanzapine (ZyPREXA ZYDIS) 10 mg Q4HP PRN PO ANXIETY/AGITATION 05/25/20 17:45 07/11/20 15:32 DC 07/09/20 13:36 Olanzapine (ZyPREXA ZYDIS) 15 mg BID PO 06/02/20 21:00 06/02/20 12:08 DC Olanzapine (ZyPREXA ZYDIS) 15 mg BID PO 07/07/20 21:00 07/18/20 09:26 Olanzapine (Zyprexa Intramuscular) 5 mg BID IM 06/29/20 09:00 07/11/20 22:33 Olanzapine (Zyprexa Intramuscular) 5 mg BID IM 06/29/20 11:47 06/29/20 11:48 DC Olanzapine (Zyprexa Intramuscular) 5 mg BID PRN IM IF REFUSING ORAL, SEE TOO 06/29/20 09:00 06/29/20 11:47 DC Olanzapine (Zyprexa Intramuscular) 5 mg BID PRN IM IF REFUSING ORAL, SEE TOO 06/29/20 21:00 06/29/20 11:42 DC Oxymetazoline HCl (Afrin) 2 spray DAILYPRN PRN NA congestion 06/23/20 13:45 Pneumococcal Polyvalent Vaccine (Prevnar 13) 0.5 ml ASDIRECTED IM 06/01/20 11:30 07/11/20 07:46 DC 07/02/20 10:40 Trazodone HCl (Desyrel) 50 mg QHSP PRN PO INSOMNIA 05/25/20 17:45 07/15/20 23:15 Allergies Coded Allergies: No Known Allergies (Verified , 10/30/03) OLY WU DO Jul 18, 2020 10:16
[2020-07-18 18:06] VITALS: BP 128/72
[2020-07-18] MEDS: ACETAMINOPHEN TAB 650MG DOSE (2X325MG) PO PRN (23:56)
[2020-07-19] MEDS: OLANZapine ORAL DISINTEGRATING TAB 5MG PO SCH ×2 (08:35→22:43)
[2020-07-19] MEDS: OLANZapine INTRAMUSCULAR 10MG VIAL IM SCH ×2 (08:36→21:00)
[2020-07-19] MEDS: DIVALPROEX 500MG *ER* TAB PO SCH ×2 (08:36→22:43)
--- NOTE | 2020-07-19 10:27 | MHIPNPDOC ---
[facility] Progress Note Progress Note DATE OF SERVICE: 07/19/20 Subjective HPI: Samira was not present today after attempted to being met with multiple times. Patient is still tangential and nonlinear. She reports being cursed by various witches who are also there to cause her harm. Shes unable to engage in any reasonable interview. Objective Appearance: Well nourished. Well groomed. Appears to be stated age. Affect: Flat. Delusional. Speech: Hyper-verbal. Thought Form: Tangential. Nonlinear. Judgement: Poor. Insight: Poor. Assessment F25.0 Schizoaffective disorder, bipolar type Plan Increase Depakote to 1000 mg nightly Continue Valproic acid 500 mg daily with Zyprexa 15 mg BID. The patient will be monitored, retention is being pursued. Patient doesnt disagree with this at this time. She will be transferred to [place] as they have accepted her. Will be transferred to [place] as she refused to come to the aforementioned the prior hearing and thus I believe this would be most judicious as she is not made significant progress all there. She is somewhat less agitated than she has been in the past. Vital Signs Vital Signs Date Time Temp Pulse Resp B/P (MAP) Pulse Ox O2 Delivery O2 Flow Rate FiO2 07/18/20 18:06 99.0 106 20 128/72 (90) Room Air 07/17/20 06:42 95 Current Medications Current Medications Medications (Trade) Dose Ordered Sig/Holly Route PRN Reason Start Time Stop Time Status Last Admin Dose Admin Acetaminophen (Tylenol Tab) 650 mg Q6HP PRN PO HEADACHE or DISCOMFORT 05/25/20 17:45 07/18/20 23:56 Al Hydrox/Mg Hydrox/Simethicone (Mylanta) 30 ml Q4HP PRN PO HEARTBURN/INDIGESTION 05/25/20 17:45 07/13/20 19:58 Benztropine Mesylate (Cogentin) 0.5 mg DAILY PRN PO eps 05/30/20 11:15 Cariprazine (Vraylar) 1.5 mg DAILY PO 06/03/20 09:00 06/08/20 11:54 DC Diphenhydramine HCl (Benadryl) 50 mg STAT STAT IM 05/26/20 01:04 05/26/20 01:06 DC 05/26/20 01:22 Diphenhydramine HCl (Benadryl) 50 mg STAT STAT PO 05/26/20 19:38 05/26/20 19:44 DC 05/26/20 19:48 Divalproex Sodium (Depakote Er) 250 mg BID PO 05/30/20 09:00 06/02/20 11:31 DC 06/01/20 11:46 Divalproex Sodium (Depakote Er) 500 mg BID PO 06/02/20 21:00 07/19/20 08:36 Haloperidol (Haldol) 10 mg STAT STAT IM 05/26/20 01:04 05/26/20 01:06 DC 05/26/20 01:22 Haloperidol (Haldol) 10 mg STAT STAT IM 05/27/20 01:23 05/27/20 01:25 DC 05/27/20 01:28 Haloperidol (Haldol) 10 mg STAT STAT PO 05/26/20 19:38 05/26/20 19:44 DC 05/26/20 19:48 Home Med (Med Rec Complete!) ASDIRECTED XX 05/25/20 16:15 05/25/20 16:17 DC Influenza Virus Vaccine (Flublok Quad(Egg-Free)18y&Older Influenza) 0.5 ml ASDIRECTED IM 06/01/20 11:30 07/11/20 07:46 DC 07/02/20 10:41 Lorazepam (Ativan) 2 mg STAT STAT IM 05/26/20 01:04 05/26/20 01:06 DC 05/26/20 01:23 Lorazepam (Ativan) 2 mg STAT STAT PO 05/26/20 19:38 05/26/20 19:44 DC 05/26/20 19:47 Magnesium Hydroxide (Milk Of Magnesia) 30 ml DAILYPRN PRN PO CONSTIPATION 05/25/20 17:45 07/06/20 19:50 Olanzapine (ZyPREXA ZYDIS) 10 mg BID PO 05/30/20 09:00 06/02/20 11:31 DC 06/01/20 11:46 Olanzapine (ZyPREXA ZYDIS) 10 mg BID PO 06/08/20 21:00 07/07/20 12:42 DC 07/07/20 09:44 Olanzapine (ZyPREXA ZYDIS) 10 mg Q4HP PRN PO ANXIETY/AGITATION 05/25/20 17:45 07/11/20 15:32 DC 07/09/20 13:36 Olanzapine (ZyPREXA ZYDIS) 15 mg BID PO 06/02/20 21:00 06/02/20 12:08 DC Olanzapine (ZyPREXA ZYDIS) 15 mg BID PO 07/07/20 21:00 07/19/20 08:35 Olanzapine (Zyprexa Intramuscular) 5 mg BID IM 06/29/20 09:00 07/11/20 22:33 Olanzapine (Zyprexa Intramuscular) 5 mg BID IM 06/29/20 11:47 06/29/20 11:48 DC Olanzapine (Zyprexa Intramuscular) 5 mg BID PRN IM IF REFUSING ORAL, SEE TOO 06/29/20 09:00 06/29/20 11:47 DC Olanzapine (Zyprexa Intramuscular) 5 mg BID PRN IM IF REFUSING ORAL, SEE TOO 06/29/20 21:00 06/29/20 11:42 DC Oxymetazoline HCl (Afrin) 2 spray DAILYPRN PRN NA congestion 06/23/20 13:45 Pneumococcal Polyvalent Vaccine (Prevnar 13) 0.5 ml ASDIRECTED IM 06/01/20 11:30 07/11/20 07:46 DC 07/02/20 10:40 Trazodone HCl (Desyrel) 50 mg QHSP PRN PO INSOMNIA 05/25/20 17:45 07/15/20 23:15 Allergies Coded Allergies: No Known Allergies (Verified , 10/30/03) OLY WU DO Jul 19, 2020 10:27
[2020-07-19] MEDS ORDERED: haloperidoL 5 MG TAB PO ONE (14:15)
[2020-07-19 18:00] VITALS: BP 134/74
[2020-07-20] MEDS: OLANZapine INTRAMUSCULAR 10MG VIAL IM SCH ×2 (09:00→20:53)
[2020-07-20] MEDS: OLANZapine ORAL DISINTEGRATING TAB 5MG PO SCH ×2 (09:35→20:52)
[2020-07-20] MEDS: DIVALPROEX 500MG *ER* TAB PO SCH ×2 (09:37→20:52)
--- NOTE | 2020-07-20 10:44 | MHIPNPDOC ---
[facility] Progress Note Progress Note DATE OF SERVICE: 07/20/20 Subjective HPI: Samira presents today for a follow-up. Patient states the people in the rooms next to her are performing witchcraft and satanism. Objective Behavior: Paranoid. Delusional. Distorted. Speech: Tangential. Hyper-verbal. Thought Form: Nonlinear. Judgement: Poor. Insight: Poor. Assessment F25.0 Schizoaffective disorder, bipolar type Plan Continue with Depakote, increased 1,000 at night and 500 in the morning, Zyprexa 15 mg BID Transfer to [place] pending Blood level to be drawn in several d Vital Signs Vital Signs Date Time Temp Pulse Resp B/P (MAP) Pulse Ox O2 Delivery O2 Flow Rate FiO2 07/19/20 18:00 98.1 100 20 134/74 (94) Room Air 07/17/20 06:42 95 Current Medications Current Medications Medications (Trade) Dose Ordered Sig/Holly Route PRN Reason Start Time Stop Time Status Last Admin Dose Admin Acetaminophen (Tylenol Tab) 650 mg Q6HP PRN PO HEADACHE or DISCOMFORT 05/25/20 17:45 07/18/20 23:56 Al Hydrox/Mg Hydrox/Simethicone (Mylanta) 30 ml Q4HP PRN PO HEARTBURN/INDIGESTION 05/25/20 17:45 07/13/20 19:58 Benztropine Mesylate (Cogentin) 0.5 mg DAILY PRN PO eps 05/30/20 11:15 Cariprazine (Vraylar) 1.5 mg DAILY PO 06/03/20 09:00 06/08/20 11:54 DC Diphenhydramine HCl (Benadryl) 50 mg STAT STAT IM 05/26/20 01:04 05/26/20 01:06 DC 05/26/20 01:22 Diphenhydramine HCl (Benadryl) 50 mg STAT STAT PO 05/26/20 19:38 05/26/20 19:44 DC 05/26/20 19:48 Divalproex Sodium (Depakote Er) 250 mg BID PO 05/30/20 09:00 06/02/20 11:31 DC 06/01/20 11:46 Divalproex Sodium (Depakote Er) 500 mg BID PO 06/02/20 21:00 07/19/20 15:11 DC 07/19/20 08:36 Divalproex Sodium (Depakote Er) 500 mg DAILY PO 07/20/20 09:00 07/20/20 09:37 Divalproex Sodium (Depakote Er) 1,000 mg QHS PO 07/19/20 21:00 07/19/20 22:43 Haloperidol (Haldol) 10 mg STAT STAT IM 05/26/20 01:04 05/26/20 01:06 DC 05/26/20 01:22 Haloperidol (Haldol) 10 mg STAT STAT IM 05/27/20 01:23 05/27/20 01:25 DC 05/27/20 01:28 Haloperidol (Haldol) 10 mg STAT STAT PO 05/26/20 19:38 05/26/20 19:44 DC 05/26/20 19:48 Home Med (Med Rec Complete!) ASDIRECTED XX 05/25/20 16:15 05/25/20 16:17 DC Influenza Virus Vaccine (Flublok Quad(Egg-Free)18y&Older Influenza) 0.5 ml ASDIRECTED IM 06/01/20 11:30 07/11/20 07:46 DC 07/02/20 10:41 Lorazepam (Ativan) 2 mg STAT STAT IM 05/26/20 01:04 05/26/20 01:06 DC 05/26/20 01:23 Lorazepam (Ativan) 2 mg STAT STAT PO 05/26/20 19:38 05/26/20 19:44 DC 05/26/20 19:47 Magnesium Hydroxide (Milk Of Magnesia) 30 ml DAILYPRN PRN PO CONSTIPATION 05/25/20 17:45 07/06/20 19:50 Olanzapine (ZyPREXA ZYDIS) 10 mg BID PO 05/30/20 09:00 06/02/20 11:31 DC 06/01/20 11:46 Olanzapine (ZyPREXA ZYDIS) 10 mg BID PO 06/08/20 21:00 07/07/20 12:42 DC 07/07/20 09:44 Olanzapine (ZyPREXA ZYDIS) 10 mg Q4HP PRN PO ANXIETY/AGITATION 05/25/20 17:45 07/11/20 15:32 DC 07/09/20 13:36 Olanzapine (ZyPREXA ZYDIS) 15 mg BID PO 06/02/20 21:00 06/02/20 12:08 DC Olanzapine (ZyPREXA ZYDIS) 15 mg BID PO 07/07/20 21:00 07/20/20 09:35 Olanzapine (Zyprexa Intramuscular) 5 mg BID IM 06/29/20 09:00 07/11/20 22:33 Olanzapine (Zyprexa Intramuscular) 5 mg BID IM 06/29/20 11:47 06/29/20 11:48 DC Olanzapine (Zyprexa Intramuscular) 5 mg BID PRN IM IF REFUSING ORAL, SEE TOO 06/29/20 09:00 06/29/20 11:47 DC Olanzapine (Zyprexa Intramuscular) 5 mg BID PRN IM IF REFUSING ORAL, SEE TOO 06/29/20 21:00 06/29/20 11:42 DC Oxymetazoline HCl (Afrin) 2 spray DAILYPRN PRN NA congestion 06/23/20 13:45 Pneumococcal Polyvalent Vaccine (Prevnar 13) 0.5 ml ASDIRECTED IM 06/01/20 11:30 07/11/20 07:46 DC 07/02/20 10:40 Trazodone HCl (Desyrel) 50 mg QHSP PRN PO INSOMNIA 05/25/20 17:45 07/15/20 23:15 Allergies Coded Allergies: No Known Allergies (Verified , 10/30/03) OLY WU DO Jul 20, 2020 10:44
[2020-07-20] MEDS ORDERED: haloperidoL 5 MG TAB PO ONE (15:45)
[2020-07-21] MEDS: OLANZapine INTRAMUSCULAR 10MG VIAL IM SCH ×2 (09:00→21:00)
[2020-07-21] MEDS: DIVALPROEX 500MG *ER* TAB PO SCH ×2 (09:42→21:17)
[2020-07-21] MEDS: OLANZapine ORAL DISINTEGRATING TAB 5MG PO SCH ×2 (09:42→21:17)
--- NOTE | 2020-07-21 11:07 | MHIPNPDOC ---
[facility] Progress Note Progress Note DATE OF SERVICE: 07/21/20 HPI: Samira presents today for a follow-up. Patient reports she is weak and tired. She also notes she is hearing voices. Objective Loud and incoherent, with poor insight and judgement,unable to understand due to tangential and psychotic discourse. Distressed with dysphoric affect. Assessment F20.9 Schizophrenia, unspecified Plan Patient will begin new medication to treat auditory hallucinations, augmentation with Clozapine 12.5mg QHS with cross taper, due to poor response to multiple antipsychotics Vital Signs Vital Signs Date Time Temp Pulse Resp B/P (MAP) Pulse Ox O2 Delivery O2 Flow Rate FiO2 07/19/20 18:00 98.1 100 20 134/74 (94) Room Air 07/17/20 06:42 95 Current Medications Current Medications Medications (Trade) Dose Ordered Sig/Holly Route PRN Reason Start Time Stop Time Status Last Admin Dose Admin Acetaminophen (Tylenol Tab) 650 mg Q6HP PRN PO HEADACHE or DISCOMFORT 05/25/20 17:45 07/18/20 23:56 Al Hydrox/Mg Hydrox/Simethicone (Mylanta) 30 ml Q4HP PRN PO HEARTBURN/INDIGESTION 05/25/20 17:45 07/13/20 19:58 Benztropine Mesylate (Cogentin) 0.5 mg DAILY PRN PO eps 05/30/20 11:15 Cariprazine (Vraylar) 1.5 mg DAILY PO 06/03/20 09:00 06/08/20 11:54 DC Diphenhydramine HCl (Benadryl) 50 mg STAT STAT IM 05/26/20 01:04 05/26/20 01:06 DC 05/26/20 01:22 Diphenhydramine HCl (Benadryl) 50 mg STAT STAT PO 05/26/20 19:38 05/26/20 19:44 DC 05/26/20 19:48 Divalproex Sodium (Depakote Er) 250 mg BID PO 05/30/20 09:00 06/02/20 11:31 DC 06/01/20 11:46 Divalproex Sodium (Depakote Er) 500 mg BID PO 06/02/20 21:00 07/19/20 15:11 DC 07/19/20 08:36 Divalproex Sodium (Depakote Er) 500 mg DAILY PO 07/20/20 09:00 07/21/20 09:42 Divalproex Sodium (Depakote Er) 1,000 mg QHS PO 07/19/20 21:00 07/20/20 20:52 Haloperidol (Haldol) 10 mg STAT STAT IM 05/26/20 01:04 05/26/20 01:06 DC 05/26/20 01:22 Haloperidol (Haldol) 10 mg STAT STAT IM 05/27/20 01:23 05/27/20 01:25 DC 05/27/20 01:28 Haloperidol (Haldol) 10 mg STAT STAT PO 05/26/20 19:38 05/26/20 19:44 DC 05/26/20 19:48 Home Med (Med Rec Complete!) ASDIRECTED XX 05/25/20 16:15 05/25/20 16:17 DC Influenza Virus Vaccine (Flublok Quad(Egg-Free)18y&Older Influenza) 0.5 ml ASDIRECTED IM 06/01/20 11:30 07/11/20 07:46 DC 07/02/20 10:41 Lorazepam (Ativan) 2 mg STAT STAT IM 05/26/20 01:04 05/26/20 01:06 DC 05/26/20 01:23 Lorazepam (Ativan) 2 mg STAT STAT PO 05/26/20 19:38 05/26/20 19:44 DC 05/26/20 19:47 Magnesium Hydroxide (Milk Of Magnesia) 30 ml DAILYPRN PRN PO CONSTIPATION 05/25/20 17:45 07/06/20 19:50 Olanzapine (ZyPREXA ZYDIS) 10 mg BID PO 05/30/20 09:00 06/02/20 11:31 DC 06/01/20 11:46 Olanzapine (ZyPREXA ZYDIS) 10 mg BID PO 06/08/20 21:00 07/07/20 12:42 DC 07/07/20 09:44 Olanzapine (ZyPREXA ZYDIS) 10 mg Q4HP PRN PO ANXIETY/AGITATION 05/25/20 17:45 07/11/20 15:32 DC 07/09/20 13:36 Olanzapine (ZyPREXA ZYDIS) 15 mg BID PO 06/02/20 21:00 06/02/20 12:08 DC Olanzapine (ZyPREXA ZYDIS) 15 mg BID PO 07/07/20 21:00 07/21/20 09:42 Olanzapine (Zyprexa Intramuscular) 5 mg BID IM 06/29/20 09:00 07/11/20 22:33 Olanzapine (Zyprexa Intramuscular) 5 mg BID IM 06/29/20 11:47 06/29/20 11:48 DC Olanzapine (Zyprexa Intramuscular) 5 mg BID PRN IM IF REFUSING ORAL, SEE TOO 06/29/20 09:00 06/29/20 11:47 DC Olanzapine (Zyprexa Intramuscular) 5 mg BID PRN IM IF REFUSING ORAL, SEE TOO 06/29/20 21:00 06/29/20 11:42 DC Oxymetazoline HCl (Afrin) 2 spray DAILYPRN PRN NA congestion 06/23/20 13:45 Pneumococcal Polyvalent Vaccine (Prevnar 13) 0.5 ml ASDIRECTED IM 06/01/20 11:30 07/11/20 07:46 DC 07/02/20 10:40 Trazodone HCl (Desyrel) 50 mg QHSP PRN PO INSOMNIA 05/25/20 17:45 07/15/20 23:15 Allergies Coded Allergies: No Known Allergies (Verified , 10/30/03) OLY WU DO Jul 21, 2020 11:06
[2020-07-21] MEDS ORDERED: haloperidoL 1 MG TAB PO STA (13:46)
[2020-07-21] MEDS ORDERED: haloperidoL 5 MG TAB PO STA (14:46)
[2020-07-21] MEDS ORDERED: LORazepam 0.5 MG TAB PO ONE (18:15)
[2020-07-21] MEDS ORDERED: PRAZOSIN 1 MG CAP PO ONE (21:00)
[2020-07-21] MEDS: cloZAPine 25 MG TAB (S0136) PO SCH (21:15)
[2020-07-21 21:16] VITALS: BP 134/74
[2020-07-21] MEDS: PILL CUTTER 1 EACH XX PRN (21:18)
[2020-07-22] MEDS: OLANZapine INTRAMUSCULAR 10MG VIAL IM SCH ×2 (09:00→21:00)
[2020-07-22] MEDS: SENOKOT S TAB PO SCH (09:00)
[2020-07-22] MEDS: OLANZapine ORAL DISINTEGRATING TAB 5MG PO SCH ×2 (09:20→21:08)
[2020-07-22] MEDS: DIVALPROEX 500MG *ER* TAB PO SCH ×2 (09:20→21:09)
--- NOTE | 2020-07-22 10:11 | MHIPNPDOC ---
[facility] Progress Note Progress Note DATE OF SERVICE: 07/22/20 HPI: The patient's attempt to be met with today; however, she is highly distorted today to the point that she is unable to engage in any reasonable discussion. She's quite distorted and distressed talking about satanists and other problems. Objective Affect: Dysphoric. Constricted. Speech: Loud. Thought Content: No thoughts of self harm. No evidence of suicidal ideation. No evidence of aggressive or homicidal ideation. Distorted. Rife with delusions of their paranoid. Judgement: Poor. Insight: Poor. Assessment F25.0 Schizoaffective disorder, bipolar type Plan Continue Clozaril 12.5 mg nightly. Well lower Zyprexa to 10 mg daily. Cross tapering to clozapine is most indicated this time. Bowel prophylaxis started in the form of Senokot. Well monitor closely. She's planned to be transferred to long-term care on Saturday. Vital Signs Vital Signs Date Time Temp Pulse Resp B/P (MAP) Pulse Ox O2 Delivery O2 Flow Rate FiO2 07/21/20 21:16 134/74 07/19/20 18:00 98.1 100 20 Room Air 07/17/20 06:42 95 Current Medications Current Medications Medications (Trade) Dose Ordered Sig/Holly Route PRN Reason Start Time Stop Time Status Last Admin Dose Admin Acetaminophen (Tylenol Tab) 650 mg Q6HP PRN PO HEADACHE or DISCOMFORT 05/25/20 17:45 07/18/20 23:56 Al Hydrox/Mg Hydrox/Simethicone (Mylanta) 30 ml Q4HP PRN PO HEARTBURN/INDIGESTION 05/25/20 17:45 07/13/20 19:58 Benztropine Mesylate (Cogentin) 0.5 mg DAILY PRN PO eps 05/30/20 11:15 Cariprazine (Vraylar) 1.5 mg DAILY PO 06/03/20 09:00 06/08/20 11:54 DC Clozapine (Clozaril) 12.5 mg QHS PO 07/21/20 21:00 07/21/20 21:15 Diphenhydramine HCl (Benadryl) 50 mg STAT STAT IM 05/26/20 01:04 05/26/20 01:06 DC 05/26/20 01:22 Diphenhydramine HCl (Benadryl) 50 mg STAT STAT PO 05/26/20 19:38 05/26/20 19:44 DC 05/26/20 19:48 Divalproex Sodium (Depakote Er) 250 mg BID PO 05/30/20 09:00 06/02/20 11:31 DC 06/01/20 11:46 Divalproex Sodium (Depakote Er) 500 mg BID PO 06/02/20 21:00 07/19/20 15:11 DC 07/19/20 08:36 Divalproex Sodium (Depakote Er) 500 mg DAILY PO 07/20/20 09:00 07/22/20 09:20 Divalproex Sodium (Depakote Er) 1,000 mg QHS PO 07/19/20 21:00 07/21/20 21:17 Haloperidol (Haldol) 5 mg STAT STAT PO 07/21/20 13:46 07/21/20 13:53 DC Haloperidol (Haldol) 5 mg STAT STAT PO 07/21/20 14:46 07/21/20 14:47 DC Haloperidol (Haldol) 10 mg STAT STAT IM 05/26/20 01:04 05/26/20 01:06 DC 05/26/20 01:22 Haloperidol (Haldol) 10 mg STAT STAT IM 05/27/20 01:23 05/27/20 01:25 DC 05/27/20 01:28 Haloperidol (Haldol) 10 mg STAT STAT PO 05/26/20 19:38 05/26/20 19:44 DC 05/26/20 19:48 Home Med (Med Rec Complete!) ASDIRECTED XX 05/25/20 16:15 05/25/20 16:17 DC Influenza Virus Vaccine (Flublok Quad(Egg-Free)18y&Older Influenza) 0.5 ml ASDIRECTED IM 06/01/20 11:30 07/11/20 07:46 DC 07/02/20 10:41 Lorazepam (Ativan) 2 mg STAT STAT IM 05/26/20 01:04 05/26/20 01:06 DC 05/26/20 01:23 Lorazepam (Ativan) 2 mg STAT STAT PO 05/26/20 19:38 05/26/20 19:44 DC 05/26/20 19:47 Magnesium Hydroxide (Milk Of Magnesia) 30 ml DAILYPRN PRN PO CONSTIPATION 05/25/20 17:45 07/06/20 19:50 Olanzapine (ZyPREXA ZYDIS) 10 mg BID PO 05/30/20 09:00 06/02/20 11:31 DC 06/01/20 11:46 Olanzapine (ZyPREXA ZYDIS) 10 mg BID PO 06/08/20 21:00 07/07/20 12:42 DC 07/07/20 09:44 Olanzapine (ZyPREXA ZYDIS) 10 mg Q4HP PRN PO ANXIETY/AGITATION 05/25/20 17:45 07/11/20 15:32 DC 07/09/20 13:36 Olanzapine (ZyPREXA ZYDIS) 15 mg BID PO 06/02/20 21:00 06/02/20 12:08 DC Olanzapine (ZyPREXA ZYDIS) 15 mg BID PO 07/07/20 21:00 07/22/20 09:20 Olanzapine (Zyprexa Intramuscular) 5 mg BID IM 06/29/20 09:00 07/11/20 22:33 Olanzapine (Zyprexa Intramuscular) 5 mg BID IM 06/29/20 11:47 06/29/20 11:48 DC Olanzapine (Zyprexa Intramuscular) 5 mg BID PRN IM IF REFUSING ORAL, SEE TOO 06/29/20 09:00 06/29/20 11:47 DC Olanzapine (Zyprexa Intramuscular) 5 mg BID PRN IM IF REFUSING ORAL, SEE TOO 06/29/20 21:00 06/29/20 11:42 DC Oxymetazoline HCl (Afrin) 2 spray DAILYPRN PRN NA congestion 06/23/20 13:45 Pneumococcal Polyvalent Vaccine (Prevnar 13) 0.5 ml ASDIRECTED IM 06/01/20 11:30 07/11/20 07:46 DC 07/02/20 10:40 Senna/Docusate Sodium (Senokot S) 1 tab DAILY PO 07/22/20 09:00 Trazodone HCl (Desyrel) 50 mg QHSP PRN PO INSOMNIA 05/25/20 17:45 07/15/20 23:15 Allergies Coded Allergies: No Known Allergies (Verified , 10/30/03) OLY WU DO Jul 22, 2020 10:11
[2020-07-22] MEDS ORDERED: haloperidoL 5 MG TAB PO STA (10:24)
[2020-07-22] MEDS: cloZAPine 25 MG TAB (S0136) PO SCH (21:08)
[2020-07-22] MEDS ORDERED: OLANZapine ORAL DISINTEGRATING TAB 5MG As Ordered ONE (21:11)
[2020-07-23] MEDS: ACETAMINOPHEN TAB 650MG DOSE (2X325MG) PO PRN ×2 (04:06→21:31)
[2020-07-23 07:08] VITALS: BP 146/69
[2020-07-23] MEDS: OLANZapine ORAL DISINTEGRATING TAB 5MG PO SCH ×2 (08:40→21:54)
[2020-07-23] MEDS: DIVALPROEX 500MG *ER* TAB PO SCH ×2 (08:40→21:25)
[2020-07-23] MEDS: OLANZapine INTRAMUSCULAR 10MG VIAL IM SCH ×2 (08:40→21:00)
[2020-07-23] MEDS: SENOKOT S TAB PO SCH (08:41)
[2020-07-23] MEDS: cloZAPine 25 MG TAB (S0136) PO SCH (21:00)
[2020-07-24] MEDS: DIVALPROEX 500MG *ER* TAB PO SCH ×2 (08:48→20:38)
[2020-07-24] MEDS: OLANZapine ORAL DISINTEGRATING TAB 5MG PO SCH ×2 (08:48→20:39)
[2020-07-24] MEDS: SENOKOT S TAB PO SCH (08:55)
[2020-07-24] MEDS: OLANZapine INTRAMUSCULAR 10MG VIAL IM SCH ×2 (08:55→20:39)
[2020-07-24] MEDS ORDERED: LORazepam 2 MG TAB PO ONE (11:30)
[2020-07-24] MEDS: PILL CUTTER 1 EACH XX PRN (20:38)
[2020-07-24] MEDS: cloZAPine 25 MG TAB (S0136) PO SCH (20:38)
[2020-07-25] MEDS: SENOKOT S TAB PO SCH (09:00)
[2020-07-25] MEDS: OLANZapine INTRAMUSCULAR 10MG VIAL IM SCH (09:00)
[2020-07-25] MEDS: DIVALPROEX 500MG *ER* TAB PO SCH (09:48)
[2020-07-25] MEDS: OLANZapine ORAL DISINTEGRATING TAB 5MG PO SCH (09:48)
--- NOTE | 2020-07-25 12:09 | MHDSPDOC ---
[facility] Discharge Summary Discharge Summary DATE OF ADMISSION: May 25, 2020 at 17:44 DATE OF DISCHARGE: 07/25/20 at 1145 DISCHARGE DIAGNOSES: F25.0 Schizoaffective disorder, bipolar type REASON FOR ADMISSION: Patient was sent to [facility] on a 9.60 after she decompensated and was non-compliant with oral medications. She had been previously discharged from this facility 03/31/20-04/21/20. She quickly stopped taking her medications and had several run- ins with law enforcement and was observed to be in various stages of dress in public areas. She is a known patient to this facility with a long history of psychiatric admissions. she has a history of Schizophrenia on AOT and was had been trialed on Invega, Zyprexa, Clozaril and [place] in the past. CONSULTANTS INVOLVED: Please see Medical H + P by Medical Provider TREATMENT AND PROGRESS ON THE UNIT : Patient was admitted to the [facility] on a 9.39 legal status he was afforded the following treatment modalities: 1) Individual Therapy 2) Group Therapy 3) Medication Management 4) Milieu Therapy 5) Safe Environment HOSPITAL COURSE: Patient was admitted to [facility] initially on a 9.39 legal status and subsequently Treatment Over Objection was pursued and the court ruled in the Hospital's favor. Patient is now compliant medications. She is continuing to respond to internal stimuli, often found yelling and screaming at voices and slamming doors. These hallucinations are observed to be very disturbing to her as she is often fighting with them and crying. She was cooperative at times in the milieu but was often in her room, preferring to be alone. Some days she would attend groups but often did not. DISCHARGE ASSESSMENT: Patient is alert and oriented, she is cooperative at the time. She continues to need further hospitalization as she is not stable at this time. MD to report given Bertha Allan, COMPLAINT EVALUATION OFFICER to Dr. oTvar at [facility], he is accepting the patient. MENTAL STATUS EXAMINATION ON DISCHARGE: Patient is a 69-year old female, who is currently at the time of her discharge interview is calm and cooperative. She is dressed appropriately in hospital scrubs, her hygiene and grooming is fair. Eye contact varies from nor mal to hypervigilant. During the discharged her cooperative waxed and waned and she is aware that she is being transferred but states that she wants to return home, "I will promise to take my meds, why can't I go home." Speech: Is spontaneous but oftentimes garbled and slurred Language skills are improving, at times disorganized Thought processes including: disorganized at times and loose associations Thought content: appears depression, denies anxiety or suicidal/homicidal ideation. Abstract reasoning, and computation: Poor Description of associations: Disorganized and bizarre thinking, speaking about witches Description of abnormal or psychotic thoughts: disorganized thoughts, continues to be aggressive and agitated in her room but not with peers or staff Insight: fair to poor many times Judgement: fair to poor many times Orientation: alert and oriented to self, time and place, and situation Recent and remote memory: fair Attention span and concentration: fair Language: fair Fund of knowledge: fair Mood: Depressed during interview. Affect: reactive/tearful MEDICATIONS ON DISCHARGE: see Medication Reconciliation PLAN/FOLLOWUP ARRANGEMENTS: [facility] The amount of time spent in the coordination of care for this patient was approximately 20 minutes. Vital Signs/I&Os Vital Signs Date Time Temp Pulse Resp B/P (MAP) Pulse Ox O2 Delivery O2 Flow Rate FiO2 07/24/20 07:10 Room Air 07/23/20 07:08 96.5 106 16 146/69 (94) 96 Laboratory Data Labs 24H Laboratory Tests 2 07/24/20 22:20: Coronavirus (COVID-19)(PCR) NEGATIVE Medications No Active Prescriptions or Reported Meds Allergies Coded Allergies: No Known Allergies (Verified , 10/30/03) BERTHA ALLAN NP Jul 25, 2020 11:44
[2020-07-25] MEDS: MAALOX 30 ML SUSP *UDC PO PRN (13:04)
== END 2020-07-25 13:28 | DRG 885 ==
LOC: M ED 14:48 → M ED INP 17:44 → M PSY 21:23
PROVIDERS: ADMIT Psychiatry & Neurology Addiction Medicine; ATTEND Psychiatry & Neurology Psychiatry
DX: F25.0 Schizoaffective disorder, bipolar type (principal); R41.9 Unspecified symptoms and signs involving cognitive functions and awareness; F17.200 Nicotine dependence, unspecified, uncomplicated; Z91.14 Patient's other noncompliance with medication regimen; Z78.1 Physical restraint status

== ENCOUNTER 2021-10-19 14:25 | Emergency (ER) | payer MEDICARE, MEDICAID ==
[~2021-10-19] VITALS: Ht 170.2 cm; Wt 60.0 kg
[~2021-10-19 14:25] MED LIST changes: +ASPI-569 PO; -ASPI81TAEC PO; +DIVA250T7; +FLUO-96 PO; -FLUO20CA20 PO; -OLAN10TA2 PO; +OLAN15TA13 PO; +OLAN1TAB16 PO; +OLAN1TAB20 PO; -OLAN5TAB PO; -OLAN7.5T PO; +OLAN7.5T8 PO; +PERP4TAB31 PO; +QUET1TAB17 PO; -QUET1TAB7 PO; +QUET50TA4 PO; -QUET5TAB PO
[2021-10-19 15:50] LABS: BASO % 0.4 % (0.0-1.0); EOS # 0.3 10^3/uL (0.0-0.5); EOS % 3.7 % (0.0-3.0); HEMATOCRIT 44.7 % (36.0-47.0); HEMOGLOBIN 13.8 g/dl (12.0-15.5); LYMPH # 1.5 10^3/uL (1.5-5.0); LYMPH % 19.3 % (24.0-44.0); MEAN CORPUSCULAR HEMOGLOBIN 27.1 pg (27.0-33.0); MEAN CORPUSCULAR HGB CONC 30.9 g/dl (32.0-36.5); MEAN CORPUSCULAR VOLUME 87.6 fl (80.0-96.0); MONO # 0.6 10^3/uL (0.0-0.8); MONO % 7.8 % (2.0-8.0); NEUTROPHILS # 5.2 10^3/uL (1.5-8.5); NEUTROPHILS % 68.4 % (36.0-66.0); PLATELET COUNT, AUTOMATED 175 10^3/uL (150-450); WHITE BLOOD COUNT 7.6 10^3/uL (4.0-10.0)
[2021-10-19 16:18] LABS: ACETAMINOPHEN LEVEL < 2.0 UG/ML (10.0-30.0); ALBUMIN 3.1 GM/DL (3.2-5.2); ALT/SGPT 15 U/L (12-78); BILIRUBIN,DIRECT < 0.1 MG/DL (0.0-0.2); BILIRUBIN,TOTAL 0.1 MG/DL (0.2-1.0); BLOOD UREA NITROGEN 20 MG/DL (7-18); CALCIUM LEVEL 9.1 MG/DL (8.8-10.2); CARBON DIOXIDE LEVEL 30 MEQ/L (21-32); CHLORIDE LEVEL 108 MEQ/L (98-107); CREATININE FOR GFR 0.83 MG/DL (0.55-1.30); ETHYL ALCOHOL (ETHANOL) < 0.003 % (0.000-0.010); GLOMERULAR FILTRATION RATE > 60.0 (>39); GLUCOSE, FASTING 91 MG/DL (70-100); POTASSIUM SERUM 4.1 MEQ/L (3.5-5.1); SALICYLATE LEVEL 2.5 MG/DL (5.0-30.0); SODIUM LEVEL 141 MEQ/L (136-145); THYROID STIMULATING HORMONE 0.291 uIU/ML (0.358-3.740); TOTAL PROTEIN 6.7 GM/DL (6.4-8.2)
[2021-10-19 16:34] LABS: AMPHETAMINES LEVEL URINE NEGATIVE (NEGATIVE); BARBITURATES URINE NEGATIVE (NEGATIVE); BENZODIAZEPINES URINE NEGATIVE (NEGATIVE); CANNABINOIDS URINE NEGATIVE (NEGATIVE); COCAINE METABOLITE URINE NEGATIVE (NEGATIVE); METHADONE URINE NEGATIVE (NEGATIVE); OPIATES URINE NEGATIVE (NEGATIVE); PHENCYCLIDINE URINE NEGATIVE (NEGATIVE)
[2021-10-19] MEDS ORDERED: OLAN20TA14 PO (16:54)
[2021-10-19] MEDS ORDERED: DONE10TA90 PO (16:54)
[2021-10-19] MEDS ORDERED: BENZ0.5T23 PO (16:54)
[2021-10-19] MEDS ORDERED: MYRB25TA PO (16:54)
[2021-10-19] MEDS ORDERED: SENO8.6T5 PO (16:54)
[2021-10-19] MEDS ORDERED: HALO10AM PO (16:54)
[2021-10-19] MEDS ORDERED: DULO1CAP5 PO (16:54)
[2021-10-19] MEDS ORDERED: MEMA10TA19 PO (16:54)
[2021-10-19] MEDS ORDERED: CLON0.5T2 PO (16:54)
[2021-10-19] MEDS ORDERED: HALO1TAB19 PO (16:54)
[2021-10-19] MEDS ORDERED: MEMANTINE 5MG TABLET (NAMENDA) PO ONE (18:05)
[2021-10-19] MEDS ORDERED: BENZTROPINE 0.5 MG TAB PO ONE (18:05)
[2021-10-19] MEDS ORDERED: OLANZapine 10 MG TAB PO ONE (18:25)
[2021-10-19] MEDS ORDERED: HOME MED LIST COMPLETE! XX SCH (21:30)
[2021-10-20 14:00] VITALS: BP 122/82
== END 2021-10-20 14:31 | disposition home or self-care (01) ==
LOC: M ED 14:25
DX: F20.9 Schizophrenia, unspecified (principal); R06.02 Shortness of breath; F32.A Depression, unspecified; F17.200 Nicotine dependence, unspecified, uncomplicated; Z79.899 Other long term (current) drug therapy

== ENCOUNTER → 2021-11-14 | Outpatient (CLI) | payer MEDICARE, MEDICAID ==
[~2021-11-14] MED LIST changes: +BENZ0.5T23 PO; +DONE10TA90 PO; +DULO1CAP5 PO; +HALO10AM PO; +MEMA10TA19 PO; +MYRB25TA PO; +PERP4TAB30 PO; -PERP4TAB31 PO; +SENO8.6T5 PO
== END ==
LOC: M PLAIMG 09:28
PROVIDERS: ATTEND Physician Assistant Surgical
DX: M17.11 Unilateral primary osteoarthritis, right knee (principal)

== ENCOUNTER 2021-11-23 16:37 | Emergency (ER) | payer MEDICARE, MEDICAID ==
[~2021-11-23] VITALS: Ht 170.2 cm; Wt 80.5 kg
[2021-11-23 17:45] VITALS: BP 139/77
== END 2021-11-24 05:11 | disposition home or self-care (01) ==
LOC: M ED 16:37
DX: M79.604 Pain in right leg (principal); F20.9 Schizophrenia, unspecified; Z79.899 Other long term (current) drug therapy

== ENCOUNTER 2022-04-29 22:15 | Emergency (ER) | payer MEDICARE, MEDICAID ==
[2022-04-30 02:17] VITALS: BP 135/84
== END 2022-04-30 03:54 | disposition home or self-care (01) ==
LOC: M ED 22:15
DX: M25.461 Effusion, right knee (principal); M17.11 Unilateral primary osteoarthritis, right knee; Z90.89 Acquired absence of other organs; F17.200 Nicotine dependence, unspecified, uncomplicated; Z79.899 Other long term (current) drug therapy

== ENCOUNTER 2022-07-24 20:56 | Emergency (ER) | payer MEDICARE, MEDICAID ==
[~2022-07-24] VITALS: Ht 170.2 cm; Wt 79.5 kg
[2022-07-25] MEDS ORDERED: ASPI-161 PO (01:12)
[2022-07-25] MEDS ORDERED: ALBU8.5H INH (01:12)
[2022-07-25] MEDS ORDERED: DOCU100C17 PO (01:12)
[2022-07-25] MEDS ORDERED: MUCI600T31 PO (01:12)
[2022-07-25] MEDS ORDERED: HALO10TA20 PO (01:12)
[2022-07-25] MEDS ORDERED: FLOM0.4C39 PO (01:12)
[2022-07-25] MEDS ORDERED: DICL1GEL3 TOP (01:12)
[2022-07-25] MEDS ORDERED: ACET-907 PO (01:12)
[2022-07-25] MEDS ORDERED: HALO5TAB33 PO (01:12)
[2022-07-25] MEDS ORDERED: FLON1SPR (01:22)
[2022-07-25 01:27] VITALS: BP 141/82
[2022-07-25] MEDS ORDERED: HOME MED LIST COMPLETE! XX SCH (01:45)
== END 2022-07-25 03:08 | disposition home or self-care (01) ==
LOC: EDSEX 20:56 → EDBD 20:56 → M ED 20:56
DX: S80.911A Unspecified superficial injury of right knee, initial encounter (principal); W01.0XXA Fall on same level from slipping, tripping and stumbling without subsequent striking against object, initial encounter; Z88.0 Allergy status to penicillin

== ENCOUNTER 2022-07-29 18:48 | Emergency (ER) | payer MEDICARE, MEDICAID ==
[~2022-07-29] VITALS: Ht 170.2 cm; Wt 80.5 kg
[~2022-07-29 18:48] MED LIST changes: +ACET-907 PO; +ALBU8.5H INH; +ASPI-161 PO; +DICL1GEL3 TOP; +DOCU100C17 PO; +FLOM0.4C39 PO; +FLON1SPR; +HALO10TA20 PO; +HALO5TAB33 PO; +MUCI600T31 PO
[2022-07-29 19:10] VITALS: BP 139/85
[2022-07-29] MEDS ORDERED: ACETAMINOPHEN 325 MG TAB PO ONE (19:25)
== END 2022-07-29 21:15 | disposition home or self-care (01) ==
LOC: M ED 18:48 → EDBD 18:48 → M ED 21:15
DX: M25.461 Effusion, right knee (principal); W06.XXXA Fall from bed, initial encounter; J45.909 Unspecified asthma, uncomplicated; J44.9 Chronic obstructive pulmonary disease, unspecified; F17.200 Nicotine dependence, unspecified, uncomplicated; Z88.0 Allergy status to penicillin; Z79.82 Long term (current) use of aspirin; Z79.51 Long term (current) use of inhaled steroids; Z79.899 Other long term (current) drug therapy

== ENCOUNTER → 2022-08-21 | Outpatient (CLI) | payer MEDICARE, MEDICAID | LOC: M RAD 10:36 | PROVIDERS: ATTEND Physician Assistant Surgical | DX: S80.01XA Contusion of right knee, initial encounter (principal); W18.30XA Fall on same level, unspecified, initial encounter; Y92.009 Unspecified place in unspecified non-institutional (private) residence as the place of occurrence of the external cause ==

== ENCOUNTER 2022-09-01 01:18 | Emergency (ER) | payer MEDICARE, MEDICAID ==
[~2022-09-01] VITALS: Ht 170.2 cm; Wt 72.1 kg
[2022-09-01] MEDS ORDERED: ACETAMINOPHEN 325 MG TAB PO ONE (07:40)
[2022-09-01 09:38] VITALS: BP 135/72
== END 2022-09-01 09:53 | disposition home or self-care (01) ==
LOC: M ED 01:18
DX: M25.561 Pain in right knee (principal); M79.661 Pain in right lower leg; J44.9 Chronic obstructive pulmonary disease, unspecified; J45.909 Unspecified asthma, uncomplicated; Z90.89 Acquired absence of other organs; F17.200 Nicotine dependence, unspecified, uncomplicated; Z88.0 Allergy status to penicillin; Z79.82 Long term (current) use of aspirin; Z79.899 Other long term (current) drug therapy

== ENCOUNTER 2022-09-16 23:21 | Emergency (ER) | payer MEDICARE, MEDICAID ==
[~2022-09-16] VITALS: Ht 170.2 cm; Wt 79.5 kg
[~2022-09-16 23:21] MED LIST changes: -FLON1SPR; +FLON1SPR NARES
[2022-09-17] MEDS ORDERED: LIDOCAINE 5% (LIDODERM) PATCH TD ONE (06:20)
[2022-09-17] MEDS ORDERED: DICL1GEL3 TOP (06:36)
[2022-09-17] MEDS ORDERED: LIDO5DIS41 TOP (06:36)
[2022-09-17 06:41] VITALS: BP 150/79
[2022-09-17] MEDS ORDERED: KETOROLAC 60MG 2ML VIAL IM ONE (07:00)
[2022-09-18] MEDS ORDERED: DICL1GEL3 TOP (11:26)
[2022-09-18] MEDS ORDERED: MED REC COMMENT (11:30)
== END 2022-09-17 07:07 | disposition home or self-care (01) ==
LOC: M ED 23:21 → EDBD 23:21 → M ED 09-17 07:07
DX: M25.461 Effusion, right knee (principal); E11.9 Type 2 diabetes mellitus without complications; I10 Essential (primary) hypertension; E78.5 Hyperlipidemia, unspecified; Z79.82 Long term (current) use of aspirin; Z79.899 Other long term (current) drug therapy; Z88.0 Allergy status to penicillin

== ENCOUNTER 2022-09-18 00:30 | Inpatient (IN) | payer MEDICARE, MEDICAID ==
[~2022-09-18] VITALS: Ht 170.2 cm; Wt 72.1 kg
[~2022-09-18 00:30] MED LIST changes: +LIDO5DIS41 TOP
[2022-09-18] MEDS ORDERED: ACETAMINOPHEN 500 MG TAB PO ONE (07:35)
[2022-09-18 08:21] LABS: RSV AMPLIFICATION NEGATIVE (NEGATIVE)
[2022-09-18] MEDS ORDERED: DICL1GEL3 TOP (11:26)
[2022-09-18] MEDS ORDERED: MED REC COMMENT (11:30)
[2022-09-18] MEDS ORDERED: HOME MED LIST COMPLETE! XX SCH (11:30)
[2022-09-18 11:45] LABS: BASO % 0.5 % (0.0-1.0); EOS # 0.2 10^3/uL (0.0-0.5); HEMATOCRIT 40.7 % (36.0-47.0); HEMOGLOBIN 12.6 g/dl (12.0-15.5); LYMPH # 1.3 10^3/uL (1.5-5.0); LYMPH % 19.1 % (24.0-44.0); MEAN CORPUSCULAR HEMOGLOBIN 27.8 pg (27.0-33.0); MEAN CORPUSCULAR VOLUME 89.8 fl (80.0-96.0); MONO # 0.5 10^3/uL (0.0-0.8); MONO % 8.1 % (2.0-8.0); NEUTROPHILS # 4.6 10^3/uL (1.5-8.5); NEUTROPHILS % 68.7 % (36.0-66.0); PLATELET COUNT, AUTOMATED 217 10^3/uL (150-450); RED BLOOD COUNT 4.53 10^6/uL (4.00-5.40); WHITE BLOOD COUNT 6.7 10^3/uL (4.0-10.0)
[2022-09-18 11:54] LABS: BLOOD UREA NITROGEN 30 MG/DL (9-23); CALCIUM LEVEL 9.1 MG/DL (8.3-10.6); CARBON DIOXIDE LEVEL 24 MMOL/L (20-31); CHLORIDE LEVEL 103 MMOL/L (98-107); CREATININE FOR GFR 0.78 MG/DL (0.55-1.30); GLOMERULAR FILTRATION RATE > 60.0 (>39); GLUCOSE, FASTING 106 MG/DL (74-106); POTASSIUM SERUM 4.8 MMOL/L (3.5-5.1); SODIUM LEVEL 139 MMOL/L (136-145)
[2022-09-18] MEDS ORDERED: DOCUSATE SODIUM 100MG CAPSULE PO PRN (14:15)
[2022-09-18] MEDS ORDERED: guaiFENesin ER 600 MG TAB PO PRN (14:15)
[2022-09-18] MEDS ORDERED: FLUTICASONE PROP 0.05% NASAL SPRAY 16 GM (FLONASE) NARES PRN (14:15)
[2022-09-18 17:01] LABS: SOURCE, BODY FLUID GLUCOSE RT KNEE
[2022-09-18 17:19] VITALS: BP_SYST 110; BP_SYST 130; BP_DIAS 80
[2022-09-18 17:38] LABS: SOURCE, BODY FLUID RT KNEE; SYNOVIAL FLUID COLOR YELLOW (COLORLESS)
[2022-09-18 19:06] LABS: CRYSTALS, BODY FLUID NONE SEEN (NONE SEEN); SOURCE, BODY FLUID CRYSTALS RT KNEE
[2022-09-18] MEDS: ALBUTEROL 90 MCG/ACT 8GM HFA INHALER INH SCH (20:00)
[2022-09-18] MEDS: HEPARIN SOD (PORCINE) 5000UNITS/ML 1ML VIAL/SYRINGE SC SCH (20:30)
[2022-09-18] MEDS: DULoxetine 30MG CAPSULE (CYMBALTA) PO SCH (20:30)
[2022-09-18] MEDS: BENZTROPINE 0.5 MG TAB PO SCH (20:30)
[2022-09-18] MEDS: clonazePAM 0.5 MG TAB PO SCH (20:31)
[2022-09-18] MEDS: MEMANTINE 5MG TABLET (NAMENDA) PO SCH (20:32)
[2022-09-18] MEDS: OLANZapine 10 MG TAB PO SCH (20:32)
[2022-09-18] MEDS: ACETAMINOPHEN 325 MG TAB PO PRN (20:33)
[2022-09-18 22:00] VITALS: BP 147/87
[2022-09-18 22:36] LABS: SOURCE, BODY FLUID URIC ACID RT KNEE; URIC ACID, BODY FLUID 3.5 MG/DL (NOT ESTABLISHED)
[2022-09-19] MEDS: IBUPROFEN 400MG TAB PO PRN ×2 (04:51→21:09)
[2022-09-19 06:00] VITALS: BP 148/86
[2022-09-19 06:04] LABS: BASO % 0.5 % (0.0-1.0); EOS # 0.2 10^3/uL (0.0-0.5); EOS % 4.3 % (0.0-3.0); HEMATOCRIT 42.7 % (36.0-47.0); HEMOGLOBIN 13.2 g/dl (12.0-15.5); LYMPH # 1.4 10^3/uL (1.5-5.0); LYMPH % 25.4 % (24.0-44.0); MEAN CORPUSCULAR HGB CONC 30.9 g/dl (32.0-36.5); MEAN CORPUSCULAR VOLUME 90.5 fl (80.0-96.0); MONO # 0.5 10^3/uL (0.0-0.8); MONO % 8.2 % (2.0-8.0); NEUTROPHILS # 3.4 10^3/uL (1.5-8.5); NEUTROPHILS % 60.5 % (36.0-66.0); PLATELET COUNT, AUTOMATED 222 10^3/uL (150-450); RED BLOOD COUNT 4.72 10^6/uL (4.00-5.40); WHITE BLOOD COUNT 5.6 10^3/uL (4.0-10.0)
[2022-09-19 06:30] LABS: ALKALINE PHOSPHATASE 110 U/L (46-116); ALT/SGPT 16 U/L (7.0-40); AST/SGOT 18 U/L (<34); BILIRUBIN,TOTAL 0.3 MG/DL (0.3-1.2); BLOOD UREA NITROGEN 24 MG/DL (9-23); CALCIUM LEVEL 8.9 MG/DL (8.3-10.6); CARBON DIOXIDE LEVEL 23 MMOL/L (20-31); CHLORIDE LEVEL 103 MMOL/L (98-107); CREATININE FOR GFR 0.85 MG/DL (0.55-1.30); GLOMERULAR FILTRATION RATE > 60.0 (>39); GLUCOSE, FASTING 134 MG/DL (74-106); POTASSIUM SERUM 4.3 MMOL/L (3.5-5.1); SODIUM LEVEL 140 MMOL/L (136-145)
[2022-09-19] MEDS: ALBUTEROL 90 MCG/ACT 8GM HFA INHALER INH SCH ×2 (08:00→19:32)
[2022-09-19] MEDS ORDERED: FLUBLOK(EGG FREE)(QUAD)INFLUENZA VACC 0.5ML SYRINGE 18YRS & OLDER IM.IMMUN ONE (09:00)
[2022-09-19] MEDS: SENOKOT S TAB PO SCH (09:00)
[2022-09-19] MEDS: LIDOCAINE 5% (LIDODERM) PATCH TOP SCH (10:16)
[2022-09-19] MEDS: HEPARIN SOD (PORCINE) 5000UNITS/ML 1ML VIAL/SYRINGE SC SCH ×2 (10:16→21:09)
[2022-09-19] MEDS: ASPIRIN 81MG ENTERIC TABLET PO SCH (10:19)
[2022-09-19] MEDS: MEMANTINE 5MG TABLET (NAMENDA) PO SCH ×2 (10:19→21:08)
[2022-09-19] MEDS: TAMSULOSIN 0.4 MG CAP PO SCH (10:19)
[2022-09-19] MEDS: BENZTROPINE 0.5 MG TAB PO SCH ×2 (10:20→21:08)
[2022-09-19] MEDS: DULoxetine 30MG CAPSULE (CYMBALTA) PO SCH ×2 (10:20→21:08)
[2022-09-19] MEDS: clonazePAM 0.5 MG TAB PO SCH ×2 (10:20→21:08)
[2022-09-19] MEDS: DONEPEZIL 5 MG TAB PO SCH (10:21)
[2022-09-19] MEDS ORDERED: ZYRT10TA12 PO (11:18)
[2022-09-19] MEDS: VITAMIN B COMPLEX/VIT C CAP PO SCH (12:24)
[2022-09-19] MEDS: CETIRIZINE (ZyrTEC) 10 MG TAB PO SCH (12:24)
[2022-09-19] MEDS: ACETAMINOPHEN 325 MG TAB PO PRN (13:38)
[2022-09-19 14:00] VITALS: BP 113/77
[2022-09-19 20:03] VITALS: BP 125/79
[2022-09-19] MEDS: OLANZapine 10 MG TAB PO SCH (21:08)
[2022-09-20 05:51] LABS: BASO % 0.6 % (0.0-1.0); EOS # 0.2 10^3/uL (0.0-0.5); EOS % 4.1 % (0.0-3.0); HEMOGLOBIN 12.5 g/dl (12.0-15.5); LYMPH # 1.2 10^3/uL (1.5-5.0); MEAN CORPUSCULAR HEMOGLOBIN 27.9 pg (27.0-33.0); MEAN CORPUSCULAR HGB CONC 30.5 g/dl (32.0-36.5); MEAN CORPUSCULAR VOLUME 91.5 fl (80.0-96.0); MONO # 0.6 10^3/uL (0.0-0.8); MONO % 10.6 % (2.0-8.0); NEUTROPHILS # 3.2 10^3/uL (1.5-8.5); NEUTROPHILS % 60.7 % (36.0-66.0); PLATELET COUNT, AUTOMATED 192 10^3/uL (150-450); RED BLOOD COUNT 4.48 10^6/uL (4.00-5.40); WHITE BLOOD COUNT 5.2 10^3/uL (4.0-10.0)
[2022-09-20 06:17] LABS: ALBUMIN 2.9 G/DL (3.2-5.2); ALKALINE PHOSPHATASE 103 U/L (46-116); ALT/SGPT 11 U/L (7.0-40); AST/SGOT 16 U/L (<34); BILIRUBIN,TOTAL 0.2 MG/DL (0.3-1.2); BLOOD UREA NITROGEN 19 MG/DL (9-23); CALCIUM LEVEL 8.6 MG/DL (8.3-10.6); CARBON DIOXIDE LEVEL 25 MMOL/L (20-31); CHLORIDE LEVEL 106 MMOL/L (98-107); CREATININE FOR GFR 0.82 MG/DL (0.55-1.30); GLOMERULAR FILTRATION RATE > 60.0 (>39); GLUCOSE, FASTING 97 MG/DL (74-106); POTASSIUM SERUM 4.6 MMOL/L (3.5-5.1); SODIUM LEVEL 139 MMOL/L (136-145); TOTAL PROTEIN 6.2 G/DL (5.7-8.2)
[2022-09-20 06:26] VITALS: BP 137/71
[2022-09-20] MEDS: ALBUTEROL 90 MCG/ACT 8GM HFA INHALER INH SCH ×2 (08:06→19:42)
[2022-09-20] MEDS: SENOKOT S TAB PO SCH (10:28)
[2022-09-20] MEDS: CETIRIZINE (ZyrTEC) 10 MG TAB PO SCH (10:28)
[2022-09-20] MEDS: VITAMIN B COMPLEX/VIT C CAP PO SCH (10:28)
[2022-09-20] MEDS: DULoxetine 30MG CAPSULE (CYMBALTA) PO SCH ×2 (10:28→21:09)
[2022-09-20] MEDS: TAMSULOSIN 0.4 MG CAP PO SCH (10:28)
[2022-09-20] MEDS: DONEPEZIL 5 MG TAB PO SCH (10:28)
[2022-09-20] MEDS: BENZTROPINE 0.5 MG TAB PO SCH ×2 (10:28→21:23)
[2022-09-20] MEDS: MEMANTINE 5MG TABLET (NAMENDA) PO SCH ×2 (10:29→21:08)
[2022-09-20] MEDS: HEPARIN SOD (PORCINE) 5000UNITS/ML 1ML VIAL/SYRINGE SC SCH ×2 (10:29→21:11)
[2022-09-20] MEDS: ASPIRIN 81MG ENTERIC TABLET PO SCH (10:29)
[2022-09-20] MEDS: clonazePAM 0.5 MG TAB PO SCH ×3 (10:29→21:09)
[2022-09-20] MEDS: LIDOCAINE 5% (LIDODERM) PATCH TOP SCH (10:30)
[2022-09-20] MEDS: ACETAMINOPHEN 325 MG TAB PO PRN ×2 (12:05→21:23)
[2022-09-20] MEDS: OLANZapine 10 MG TAB PO SCH (21:09)
[2022-09-21 06:00] VITALS: BP 146/80
[2022-09-21 06:11] LABS: BASO % 0.4 % (0.0-1.0); EOS # 0.3 10^3/uL (0.0-0.5); EOS % 5.7 % (0.0-3.0); HEMATOCRIT 38.4 % (36.0-47.0); HEMOGLOBIN 11.9 g/dl (12.0-15.5); LYMPH # 1.3 10^3/uL (1.5-5.0); LYMPH % 27.2 % (24.0-44.0); MEAN CORPUSCULAR HEMOGLOBIN 28.1 pg (27.0-33.0); MEAN CORPUSCULAR VOLUME 90.6 fl (80.0-96.0); MONO # 0.5 10^3/uL (0.0-0.8); MONO % 11.2 % (2.0-8.0); NEUTROPHILS # 2.6 10^3/uL (1.5-8.5); NEUTROPHILS % 54.4 % (36.0-66.0); PLATELET COUNT, AUTOMATED 195 10^3/uL (150-450); RED BLOOD COUNT 4.24 10^6/uL (4.00-5.40); WHITE BLOOD COUNT 4.8 10^3/uL (4.0-10.0)
[2022-09-21 06:49] LABS: ALBUMIN 2.7 G/DL (3.2-5.2); ALKALINE PHOSPHATASE 102 U/L (46-116); ALT/SGPT 16 U/L (7.0-40); AST/SGOT 15 U/L (<34); BILIRUBIN,TOTAL 0.2 MG/DL (0.3-1.2); BLOOD UREA NITROGEN 14 MG/DL (9-23); CALCIUM LEVEL 8.8 MG/DL (8.3-10.6); CARBON DIOXIDE LEVEL 26 MMOL/L (20-31); CHLORIDE LEVEL 108 MMOL/L (98-107); CREATININE FOR GFR 0.78 MG/DL (0.55-1.30); GLOMERULAR FILTRATION RATE > 60.0 (>39); GLUCOSE, FASTING 94 MG/DL (74-106); POTASSIUM SERUM 4.6 MMOL/L (3.5-5.1); SODIUM LEVEL 141 MMOL/L (136-145); TOTAL PROTEIN 5.7 G/DL (5.7-8.2)
[2022-09-21] MEDS: ALBUTEROL 90 MCG/ACT 8GM HFA INHALER INH SCH ×2 (07:20→19:59)
[2022-09-21] MEDS: HEPARIN SOD (PORCINE) 5000UNITS/ML 1ML VIAL/SYRINGE SC SCH ×2 (09:00→20:10)
[2022-09-21] MEDS: SENOKOT S TAB PO SCH (09:00)
[2022-09-21] MEDS: VITAMIN B COMPLEX/VIT C CAP PO SCH (09:18)
[2022-09-21] MEDS: CETIRIZINE (ZyrTEC) 10 MG TAB PO SCH (09:19)
[2022-09-21] MEDS: DULoxetine 30MG CAPSULE (CYMBALTA) PO SCH ×2 (09:19→20:07)
[2022-09-21] MEDS: DONEPEZIL 5 MG TAB PO SCH (09:19)
[2022-09-21] MEDS: MEMANTINE 5MG TABLET (NAMENDA) PO SCH ×2 (09:19→20:08)
[2022-09-21] MEDS: ASPIRIN 81MG ENTERIC TABLET PO SCH (09:19)
[2022-09-21] MEDS: clonazePAM 0.5 MG TAB PO SCH ×2 (09:20→20:08)
[2022-09-21] MEDS: LIDOCAINE 5% (LIDODERM) PATCH TOP SCH (09:24)
[2022-09-21] MEDS: BENZTROPINE 0.5 MG TAB PO SCH ×2 (09:25→20:08)
[2022-09-21] MEDS: TAMSULOSIN 0.4 MG CAP PO SCH (09:25)
[2022-09-21] MEDS: OLANZapine 10 MG TAB PO SCH (20:08)
[2022-09-21] MEDS: IBUPROFEN 400MG TAB PO PRN (20:08)
[2022-09-21] MEDS: RAMELTEON 8 MG TAB (ROZEREM) PO PRN (20:08)
[2022-09-22 06:00] VITALS: BP 136/86
[2022-09-22 06:08] LABS: BASO % 0.5 % (0.0-1.0); EOS # 0.3 10^3/uL (0.0-0.5); EOS % 4.7 % (0.0-3.0); HEMATOCRIT 38.3 % (36.0-47.0); HEMOGLOBIN 11.7 g/dl (12.0-15.5); LYMPH # 1.5 10^3/uL (1.5-5.0); LYMPH % 23.9 % (24.0-44.0); MEAN CORPUSCULAR HEMOGLOBIN 27.7 pg (27.0-33.0); MEAN CORPUSCULAR HGB CONC 30.5 g/dl (32.0-36.5); MEAN CORPUSCULAR VOLUME 90.8 fl (80.0-96.0); MONO # 0.7 10^3/uL (0.0-0.8); MONO % 10.4 % (2.0-8.0); NEUTROPHILS # 3.7 10^3/uL (1.5-8.5); NEUTROPHILS % 58.9 % (36.0-66.0); PLATELET COUNT, AUTOMATED 186 10^3/uL (150-450); RED BLOOD COUNT 4.22 10^6/uL (4.00-5.40); WHITE BLOOD COUNT 6.4 10^3/uL (4.0-10.0)
[2022-09-22 06:36] LABS: ALBUMIN 2.8 G/DL (3.2-5.2); ALKALINE PHOSPHATASE 109 U/L (46-116); ALT/SGPT 20 U/L (7.0-40); AST/SGOT 19 U/L (<34); BILIRUBIN,TOTAL 0.2 MG/DL (0.3-1.2); BLOOD UREA NITROGEN 19 MG/DL (9-23); CALCIUM LEVEL 8.8 MG/DL (8.3-10.6); CARBON DIOXIDE LEVEL 26 MMOL/L (20-31); CHLORIDE LEVEL 107 MMOL/L (98-107); CREATININE FOR GFR 0.79 MG/DL (0.55-1.30); GLOMERULAR FILTRATION RATE > 60.0 (>39); GLUCOSE, FASTING 93 MG/DL (74-106); POTASSIUM SERUM 4.5 MMOL/L (3.5-5.1); SODIUM LEVEL 141 MMOL/L (136-145); TOTAL PROTEIN 5.9 G/DL (5.7-8.2)
[2022-09-22] MEDS: ALBUTEROL 90 MCG/ACT 8GM HFA INHALER INH SCH ×2 (07:23→19:21)
[2022-09-22] MEDS: SENOKOT S TAB PO SCH (09:00)
[2022-09-22] MEDS: DULoxetine 30MG CAPSULE (CYMBALTA) PO SCH ×2 (09:49→20:36)
[2022-09-22] MEDS: VITAMIN B COMPLEX/VIT C CAP PO SCH (09:49)
[2022-09-22] MEDS: clonazePAM 0.5 MG TAB PO SCH ×2 (09:50→20:36)
[2022-09-22] MEDS: LIDOCAINE 5% (LIDODERM) PATCH TOP SCH (09:50)
[2022-09-22] MEDS: TAMSULOSIN 0.4 MG CAP PO SCH (09:50)
[2022-09-22] MEDS: DONEPEZIL 5 MG TAB PO SCH (09:50)
[2022-09-22] MEDS: MEMANTINE 5MG TABLET (NAMENDA) PO SCH ×2 (09:50→20:36)
[2022-09-22] MEDS: CETIRIZINE (ZyrTEC) 10 MG TAB PO SCH (09:50)
[2022-09-22] MEDS: ASPIRIN 81MG ENTERIC TABLET PO SCH (09:50)
[2022-09-22] MEDS: BENZTROPINE 0.5 MG TAB PO SCH ×2 (09:50→20:39)
[2022-09-22] MEDS: HEPARIN SOD (PORCINE) 5000UNITS/ML 1ML VIAL/SYRINGE SC SCH ×2 (09:54→20:54)
[2022-09-22] MEDS: RAMELTEON 8 MG TAB (ROZEREM) PO PRN (20:36)
[2022-09-22] MEDS: IBUPROFEN 400MG TAB PO PRN (20:37)
[2022-09-22] MEDS: OLANZapine 10 MG TAB PO SCH (20:39)
[2022-09-23 06:00] VITALS: BP 141/87
[2022-09-23 06:08] LABS: BASO % 0.5 % (0.0-1.0); EOS # 0.3 10^3/uL (0.0-0.5); EOS % 4.4 % (0.0-3.0); HEMATOCRIT 39.9 % (36.0-47.0); HEMOGLOBIN 12.4 g/dl (12.0-15.5); LYMPH # 1.3 10^3/uL (1.5-5.0); MEAN CORPUSCULAR HEMOGLOBIN 28.1 pg (27.0-33.0); MEAN CORPUSCULAR HGB CONC 31.1 g/dl (32.0-36.5); MEAN CORPUSCULAR VOLUME 90.3 fl (80.0-96.0); MONO # 0.7 10^3/uL (0.0-0.8); MONO % 9.3 % (2.0-8.0); NEUTROPHILS # 4.9 10^3/uL (1.5-8.5); NEUTROPHILS % 66.2 % (36.0-66.0); PLATELET COUNT, AUTOMATED 186 10^3/uL (150-450); RED BLOOD COUNT 4.42 10^6/uL (4.00-5.40); WHITE BLOOD COUNT 7.4 10^3/uL (4.0-10.0)
[2022-09-23 06:48] LABS: ALBUMIN 3.1 G/DL (3.2-5.2); ALKALINE PHOSPHATASE 122 U/L (46-116); ALT/SGPT 31 U/L (7.0-40); AST/SGOT 29 U/L (<34); BILIRUBIN,TOTAL 0.2 MG/DL (0.3-1.2); BLOOD UREA NITROGEN 20 MG/DL (9-23); CARBON DIOXIDE LEVEL 27 MMOL/L (20-31); CHLORIDE LEVEL 104 MMOL/L (98-107); CREATININE FOR GFR 0.84 MG/DL (0.55-1.30); GLOMERULAR FILTRATION RATE > 60.0 (>39); GLUCOSE, FASTING 103 MG/DL (74-106); POTASSIUM SERUM 4.7 MMOL/L (3.5-5.1); SODIUM LEVEL 139 MMOL/L (136-145); TOTAL PROTEIN 6.5 G/DL (5.7-8.2)
[2022-09-23] MEDS: ALBUTEROL 90 MCG/ACT 8GM HFA INHALER INH SCH ×2 (07:37→20:12)
[2022-09-23] MEDS: HEPARIN SOD (PORCINE) 5000UNITS/ML 1ML VIAL/SYRINGE SC SCH ×2 (09:00→20:33)
[2022-09-23] MEDS: BENZTROPINE 0.5 MG TAB PO SCH ×2 (09:00→21:06)
[2022-09-23] MEDS: SENOKOT S TAB PO SCH (09:00)
[2022-09-23] MEDS: DONEPEZIL 5 MG TAB PO SCH (10:33)
[2022-09-23] MEDS: ASPIRIN 81MG ENTERIC TABLET PO SCH (10:33)
[2022-09-23] MEDS: DULoxetine 30MG CAPSULE (CYMBALTA) PO SCH ×2 (10:33→21:05)
[2022-09-23] MEDS: TAMSULOSIN 0.4 MG CAP PO SCH (10:34)
[2022-09-23] MEDS: clonazePAM 0.5 MG TAB PO SCH ×2 (10:35→21:05)
[2022-09-23] MEDS: MEMANTINE 5MG TABLET (NAMENDA) PO SCH ×2 (10:35→21:05)
[2022-09-23] MEDS: VITAMIN B COMPLEX/VIT C CAP PO SCH (10:36)
[2022-09-23] MEDS: CETIRIZINE (ZyrTEC) 10 MG TAB PO SCH (10:36)
[2022-09-23] MEDS: LIDOCAINE 5% (LIDODERM) PATCH TOP SCH (10:37)
[2022-09-23] MEDS: RAMELTEON 8 MG TAB (ROZEREM) PO PRN (21:05)
[2022-09-23] MEDS: OLANZapine 10 MG TAB PO SCH (21:06)
[2022-09-24] MEDS: IBUPROFEN 400MG TAB PO PRN ×2 (01:25→16:34)
[2022-09-24 06:10] VITALS: BP 113/65
[2022-09-24] MEDS: ALBUTEROL 90 MCG/ACT 8GM HFA INHALER INH SCH ×2 (07:33→18:11)
[2022-09-24] MEDS: SENOKOT S TAB PO SCH ×2 (09:00→10:13)
[2022-09-24] MEDS: HEPARIN SOD (PORCINE) 5000UNITS/ML 1ML VIAL/SYRINGE SC SCH ×3 (09:00→20:50)
[2022-09-24] MEDS: clonazePAM 0.5 MG TAB PO SCH ×3 (10:11→21:00)
[2022-09-24] MEDS: LIDOCAINE 5% (LIDODERM) PATCH TOP SCH ×2 (10:11→20:51)
[2022-09-24] MEDS: ASPIRIN 81MG ENTERIC TABLET PO SCH (10:12)
[2022-09-24] MEDS: VITAMIN B COMPLEX/VIT C CAP PO SCH (10:12)
[2022-09-24] MEDS: DONEPEZIL 5 MG TAB PO SCH (10:12)
[2022-09-24] MEDS: CETIRIZINE (ZyrTEC) 10 MG TAB PO SCH (10:12)
[2022-09-24] MEDS: BENZTROPINE 0.5 MG TAB PO SCH ×2 (10:12→20:51)
[2022-09-24] MEDS: DULoxetine 30MG CAPSULE (CYMBALTA) PO SCH ×2 (10:12→20:50)
[2022-09-24] MEDS: TAMSULOSIN 0.4 MG CAP PO SCH (10:12)
[2022-09-24] MEDS: MEMANTINE 5MG TABLET (NAMENDA) PO SCH ×2 (10:12→20:50)
[2022-09-24] MEDS: ACETAMINOPHEN 325 MG TAB PO PRN ×2 (10:13→22:32)
[2022-09-24] MEDS: OLANZapine 10 MG TAB PO SCH (22:29)
[2022-09-25 06:10] VITALS: BP 130/91
[2022-09-25] MEDS: ALBUTEROL 90 MCG/ACT 8GM HFA INHALER INH SCH ×2 (08:00→19:42)
[2022-09-25] MEDS: SENOKOT S TAB PO SCH (09:00)
[2022-09-25] MEDS: TAMSULOSIN 0.4 MG CAP PO SCH ×2 (09:00→10:57)
[2022-09-25] MEDS: HEPARIN SOD (PORCINE) 5000UNITS/ML 1ML VIAL/SYRINGE SC SCH ×2 (09:00→21:00)
[2022-09-25] MEDS: LIDOCAINE 5% (LIDODERM) PATCH TOP SCH ×2 (09:00→10:59)
[2022-09-25] MEDS: DONEPEZIL 5 MG TAB PO SCH (10:56)
[2022-09-25] MEDS: DULoxetine 30MG CAPSULE (CYMBALTA) PO SCH ×2 (10:57→21:00)
[2022-09-25] MEDS: CETIRIZINE (ZyrTEC) 10 MG TAB PO SCH (10:57)
[2022-09-25] MEDS: MEMANTINE 5MG TABLET (NAMENDA) PO SCH ×2 (10:57→21:02)
[2022-09-25] MEDS: ASPIRIN 81MG ENTERIC TABLET PO SCH (10:57)
[2022-09-25] MEDS: clonazePAM 0.5 MG TAB PO SCH ×2 (10:57→21:02)
[2022-09-25] MEDS: VITAMIN B COMPLEX/VIT C CAP PO SCH (10:57)
[2022-09-25] MEDS: BENZTROPINE 0.5 MG TAB PO SCH ×2 (10:57→21:01)
[2022-09-25] MEDS: IBUPROFEN 400MG TAB PO PRN (11:20)
[2022-09-25 12:26] LABS: BASO % 0.4 % (0.0-1.0); EOS # 0.2 10^3/uL (0.0-0.5); EOS % 3.1 % (0.0-3.0); HEMATOCRIT 41.1 % (36.0-47.0); HEMOGLOBIN 12.7 g/dl (12.0-15.5); LYMPH # 1.3 10^3/uL (1.5-5.0); LYMPH % 17.1 % (24.0-44.0); MEAN CORPUSCULAR HEMOGLOBIN 27.9 pg (27.0-33.0); MEAN CORPUSCULAR HGB CONC 30.9 g/dl (32.0-36.5); MEAN CORPUSCULAR VOLUME 90.1 fl (80.0-96.0); MONO # 0.6 10^3/uL (0.0-0.8); MONO % 7.9 % (2.0-8.0); NEUTROPHILS # 5.2 10^3/uL (1.5-8.5); NEUTROPHILS % 70.7 % (36.0-66.0); PLATELET COUNT, AUTOMATED 198 10^3/uL (150-450); RED BLOOD COUNT 4.56 10^6/uL (4.00-5.40); WHITE BLOOD COUNT 7.3 10^3/uL (4.0-10.0)
[2022-09-25 12:49] LABS: MAGNESIUM LEVEL 1.7 MG/DL (1.8-2.4)
[2022-09-25 12:50] LABS: BLOOD UREA NITROGEN 27 MG/DL (9-23); CALCIUM LEVEL 8.9 MG/DL (8.3-10.6); CARBON DIOXIDE LEVEL 28 MMOL/L (20-31); CHLORIDE LEVEL 103 MMOL/L (98-107); CREATININE FOR GFR 0.78 MG/DL (0.55-1.30); GLOMERULAR FILTRATION RATE > 60.0 (>39); GLUCOSE, FASTING 131 MG/DL (74-106); POTASSIUM SERUM 4.8 MMOL/L (3.5-5.1); SODIUM LEVEL 139 MMOL/L (136-145)
[2022-09-25] MEDS ORDERED: MAGNESIUM OXIDE 400MG TAB (MAG-OX) PO ONE (14:00)
[2022-09-25] MEDS: OLANZapine 10 MG TAB PO SCH (21:01)
[2022-09-26] MEDS: ALBUTEROL 90 MCG/ACT 8GM HFA INHALER INH SCH ×2 (07:24→19:45)
[2022-09-26] MEDS: HEPARIN SOD (PORCINE) 5000UNITS/ML 1ML VIAL/SYRINGE SC SCH ×2 (09:00→21:00)
[2022-09-26] MEDS ORDERED: HALOPERIDOL DECANOATE 100 MG/ML 1ML VIAL IM SCH (09:00)
[2022-09-26] MEDS: DULoxetine 30MG CAPSULE (CYMBALTA) PO SCH ×2 (09:29→21:39)
[2022-09-26] MEDS: BENZTROPINE 0.5 MG TAB PO SCH ×2 (09:29→21:39)
[2022-09-26] MEDS: MEMANTINE 5MG TABLET (NAMENDA) PO SCH ×2 (09:29→21:39)
[2022-09-26] MEDS: ASPIRIN 81MG ENTERIC TABLET PO SCH (09:29)
[2022-09-26] MEDS: TAMSULOSIN 0.4 MG CAP PO SCH (09:29)
[2022-09-26] MEDS: CETIRIZINE (ZyrTEC) 10 MG TAB PO SCH (09:29)
[2022-09-26] MEDS: clonazePAM 0.5 MG TAB PO SCH ×2 (09:29→21:40)
[2022-09-26] MEDS: DONEPEZIL 5 MG TAB PO SCH (09:29)
[2022-09-26] MEDS: SENOKOT S TAB PO SCH (09:29)
[2022-09-26] MEDS: LIDOCAINE 5% (LIDODERM) PATCH TOP SCH (09:30)
[2022-09-26] MEDS: VITAMIN B COMPLEX/VIT C CAP PO SCH (12:31)
[2022-09-26] MEDS: OLANZapine 10 MG TAB PO SCH (21:39)
[2022-09-26] MEDS: IBUPROFEN 400MG TAB PO PRN (21:56)
[2022-09-27] MEDS: ACETAMINOPHEN 325 MG TAB PO PRN (01:41)
[2022-09-27 06:00] VITALS: BP 140/83
[2022-09-27] MEDS: ALBUTEROL 90 MCG/ACT 8GM HFA INHALER INH SCH ×2 (08:21→20:00)
[2022-09-27] MEDS: MEMANTINE 5MG TABLET (NAMENDA) PO SCH ×2 (08:41→23:04)
[2022-09-27] MEDS: CETIRIZINE (ZyrTEC) 10 MG TAB PO SCH (08:41)
[2022-09-27] MEDS: DULoxetine 30MG CAPSULE (CYMBALTA) PO SCH ×2 (08:41→23:04)
[2022-09-27] MEDS: ASPIRIN 81MG ENTERIC TABLET PO SCH (08:41)
[2022-09-27] MEDS: HEPARIN SOD (PORCINE) 5000UNITS/ML 1ML VIAL/SYRINGE SC SCH ×2 (08:41→21:00)
[2022-09-27] MEDS: VITAMIN B COMPLEX/VIT C CAP PO SCH (08:41)
[2022-09-27] MEDS: clonazePAM 0.5 MG TAB PO SCH ×2 (08:41→23:03)
[2022-09-27] MEDS: DONEPEZIL 5 MG TAB PO SCH (08:41)
[2022-09-27] MEDS: TAMSULOSIN 0.4 MG CAP PO SCH (08:41)
[2022-09-27] MEDS: LIDOCAINE 5% (LIDODERM) PATCH TOP SCH (08:42)
[2022-09-27] MEDS: SENOKOT S TAB PO SCH (08:42)
[2022-09-27] MEDS: BENZTROPINE 0.5 MG TAB PO SCH ×2 (08:45→23:04)
[2022-09-27] MEDS ORDERED: IBUP-1114 PO (13:11)
[2022-09-27 18:33] LABS: CK-MB VALUE MASS 1.3 NG/ML (<3.6)
[2022-09-27 18:34] LABS: MB/CK RELATIVE INDEX 1.78 (< OR =4)
[2022-09-27 20:16] LABS: MB/CK RELATIVE INDEX 1.38 (< OR =4)
[2022-09-27] MEDS: OLANZapine 10 MG TAB PO SCH (23:03)
[2022-09-28 04:55] VITALS: BP 95/57
[2022-09-28 05:00] VITALS: BP 96/48
[2022-09-28] MEDS: IBUPROFEN 400MG TAB PO PRN (05:05)
[2022-09-28 06:16] LABS: BASO % 0.3 % (0.0-1.0); EOS # 0.3 10^3/uL (0.0-0.5); EOS % 4.1 % (0.0-3.0); HEMATOCRIT 38.9 % (36.0-47.0); HEMOGLOBIN 11.8 g/dl (12.0-15.5); LYMPH % 12.7 % (24.0-44.0); MEAN CORPUSCULAR HEMOGLOBIN 27.4 pg (27.0-33.0); MEAN CORPUSCULAR HGB CONC 30.3 g/dl (32.0-36.5); MEAN CORPUSCULAR VOLUME 90.3 fl (80.0-96.0); MONO # 0.6 10^3/uL (0.0-0.8); NEUTROPHILS # 5.9 10^3/uL (1.5-8.5); NEUTROPHILS % 74.5 % (36.0-66.0); PLATELET COUNT, AUTOMATED 178 10^3/uL (150-450); RED BLOOD COUNT 4.31 10^6/uL (4.00-5.40); WHITE BLOOD COUNT 7.9 10^3/uL (4.0-10.0)
[2022-09-28 06:38] LABS: BLOOD UREA NITROGEN 26 MG/DL (9-23); CALCIUM LEVEL 8.9 MG/DL (8.3-10.6); CARBON DIOXIDE LEVEL 26 MMOL/L (20-31); CHLORIDE LEVEL 105 MMOL/L (98-107); GLOMERULAR FILTRATION RATE > 60.0 (>39); GLUCOSE, FASTING 93 MG/DL (74-106); POTASSIUM SERUM 4.4 MMOL/L (3.5-5.1); SODIUM LEVEL 139 MMOL/L (136-145)
[2022-09-28] MEDS: ALBUTEROL 90 MCG/ACT 8GM HFA INHALER INH SCH (07:25)
[2022-09-28] MEDS: HEPARIN SOD (PORCINE) 5000UNITS/ML 1ML VIAL/SYRINGE SC SCH (09:00)
[2022-09-28] MEDS: VITAMIN B COMPLEX/VIT C CAP PO SCH (09:01)
[2022-09-28] MEDS: MEMANTINE 5MG TABLET (NAMENDA) PO SCH (09:02)
[2022-09-28] MEDS: DULoxetine 30MG CAPSULE (CYMBALTA) PO SCH (09:02)
[2022-09-28] MEDS: SENOKOT S TAB PO SCH (09:02)
[2022-09-28] MEDS: clonazePAM 0.5 MG TAB PO SCH (09:02)
[2022-09-28] MEDS: BENZTROPINE 0.5 MG TAB PO SCH (09:02)
[2022-09-28] MEDS: TAMSULOSIN 0.4 MG CAP PO SCH (09:02)
[2022-09-28] MEDS: CETIRIZINE (ZyrTEC) 10 MG TAB PO SCH (09:02)
[2022-09-28] MEDS: ASPIRIN 81MG ENTERIC TABLET PO SCH (09:02)
[2022-09-28] MEDS: DONEPEZIL 5 MG TAB PO SCH (09:02)
[2022-09-28] MEDS: LIDOCAINE 5% (LIDODERM) PATCH TOP SCH (09:03)
[2022-09-28 11:12] VITALS: BP 124/82
== END 2022-09-28 13:37 | disposition home or self-care (01) | DRG 554 ==
LOC: M ED 00:30 → EDBD 00:30 → M ED INP 10:28 → ENRESERV 15:13 → M MSPAV 16:00
PROVIDERS: ADMIT Internal Medicine; ATTEND Internal Medicine
PROC: 0S9C3ZZ Drainage of Right Knee Joint, Percutaneous Approach (ICD-10-PCS; principal; 2022-09-18)
DX: M17.11 Unilateral primary osteoarthritis, right knee (principal); F25.0 Schizoaffective disorder, bipolar type; F31.9 Bipolar disorder, unspecified; G47.00 Insomnia, unspecified; J45.909 Unspecified asthma, uncomplicated; N39.3 Stress incontinence (female) (male); F40.240 Claustrophobia; J44.9 Chronic obstructive pulmonary disease, unspecified; G43.909 Migraine, unspecified, not intractable, without status migrainosus; I12.9 Hypertensive chronic kidney disease with stage 1 through stage 4 chronic kidney disease, or unspecified chronic kidney disease; N18.30 Chronic kidney disease, stage 3 unspecified; M54.50 Low back pain, unspecified; F17.210 Nicotine dependence, cigarettes, uncomplicated; F41.9 Anxiety disorder, unspecified; M25.461 Effusion, right knee; J34.89 Other specified disorders of nose and nasal sinuses; F03.90 Unspecified dementia, unspecified severity, without behavioral disturbance, psychotic disturbance, mood disturbance, and anxiety; K59.09 Other constipation; G25.71 Drug induced akathisia; T43.505A Adverse effect of unspecified antipsychotics and neuroleptics, initial encounter; Z74.1 Need for assistance with personal care; Z79.82 Long term (current) use of aspirin; Z79.899 Other long term (current) drug therapy; Z90.49 Acquired absence of other specified parts of digestive tract; Z88.0 Allergy status to penicillin

== ENCOUNTER 2022-09-30 02:50 | Emergency (ER) | payer MEDICARE, MEDICAID ==
[~2022-09-30] VITALS: Ht 170.2 cm; Wt 79.5 kg
[~2022-09-30 02:50] MED LIST changes: +IBUP-1114 PO; +ZYRT10TA12 PO
[2022-09-30] MEDS ORDERED: IBUPROFEN 400MG TAB PO ONE (08:20)
[2022-09-30] MEDS ORDERED: ACETAMINOPHEN TAB 650MG DOSE (2X325MG) PO ONE (08:20)
[2022-09-30 10:09] VITALS: O2SAT 97
[2022-09-30 10:12] VITALS: BP 124/62
== END 2022-09-30 10:50 | disposition home or self-care (01) ==
LOC: M ED 02:50
DX: M25.561 Pain in right knee (principal); Z91.199 Patient's noncompliance with other medical treatment and regimen due to unspecified reason; I10 Essential (primary) hypertension; N18.9 Chronic kidney disease, unspecified; F25.9 Schizoaffective disorder, unspecified; F17.200 Nicotine dependence, unspecified, uncomplicated; F12.10 Cannabis abuse, uncomplicated; Z79.82 Long term (current) use of aspirin; Z79.899 Other long term (current) drug therapy; Z88.0 Allergy status to penicillin

== ENCOUNTER 2022-10-06 00:27 | Emergency (ER) | payer MEDICARE, MEDICAID ==
[~2022-10-06] VITALS: Ht 170.2 cm; Wt 81.8 kg
[2022-10-06] MEDS ORDERED: IBUPROFEN 800 MG TAB PO ONE (06:50)
[2022-10-06] MEDS ORDERED: ACET-897 PO (07:04)
[2022-10-06] MEDS ORDERED: IBUP-1022 PO (07:04)
[2022-10-06 08:16] VITALS: BP 179/89
== END 2022-10-06 08:18 | disposition home or self-care (01) ==
LOC: M ED 00:27
DX: M17.11 Unilateral primary osteoarthritis, right knee (principal); I10 Essential (primary) hypertension; M54.50 Low back pain, unspecified; J44.9 Chronic obstructive pulmonary disease, unspecified; J45.909 Unspecified asthma, uncomplicated; F31.9 Bipolar disorder, unspecified; Z88.0 Allergy status to penicillin; Z79.82 Long term (current) use of aspirin; Z79.52 Long term (current) use of systemic steroids; Z79.811 Long term (current) use of aromatase inhibitors; Z79.899 Other long term (current) drug therapy